=== PATIENT | male | born 1980 | race Caucasian/White ===

== ENCOUNTER 2023-03-28 11:24 | Outpatient (OUT) | payer OTHER, SELFPAY ==
[2023-03-28 12:23] LABS: Free T3 2.36 pg/mL (2.18-3.98); Thyroid Stimulating Hormone 1.152 uIU/mL (0.358-3.740)
[2023-03-28 13:02] LABS: Free T4 0.79 ng/dL (0.76-1.46)
== END 2023-03-28 11:25 | disposition home or self-care (01) ==
LOC: LAB 11:26
PROVIDERS: PCP Internal Medicine; Visit Provider Internal Medicine
DX: R94.6 Abnormal results of thyroid function studies (principal); G35 Multiple sclerosis; M54.9 Dorsalgia, unspecified
CPT/HCPCS: 36415; 82306; 84439; 84443; 84481

== ENCOUNTER 2023-06-20 12:22 | Outpatient (OUT) | payer OTHER, SELFPAY ==
[2023-06-20 12:47] LABS: Basophils Percent Auto 0.7 % (0.2-2.0); Eosinophils Absolute Auto 0.1 10^3/uL (0.0-0.7); Eosinophils Percent Auto 1.1 % (0.9-7.0); Hematocrit 45.7 % (42.0-54.0); Hemoglobin 14.4 g/dL (14.0-18.0); Immature Granulocytes Abs Auto 0.02 10^3/uL (0.00-0.03); Immature Granulocytes Pct Auto 0.4 % (0.0-0.5); Lymphocytes Absolute Auto 1.7 10^3/uL (1.2-3.8); Lymphocytes Percent Auto 31.2 % (20.5-60.0); Mean Corpuscular HGB Conc 31.5 g/dL (29.9-35.2); Mean Corpuscular Hemoglobin 29.4 pg (25.9-34.0); Mean Corpuscular Volume 93.5 fL (80.0-94.0); Mean Platelet Volume 8.9 fL (9.5-13.5); Monocytes Absolute Auto 0.3 10^3/uL (0.3-0.8); Monocytes Percent Auto 5.4 % (1.7-12.0); Neutrophils Absolute Auto 3.4 10^3/uL (1.4-6.5); Neutrophils Percent Auto 61.2 % (43.0-75.0); Platelet Count 177 10^3/uL (150-450); Red Blood Count 4.89 10^6/uL (4.70-6.10); Red Cell Distribution Width 13.1 % (11.0-15.0); White Blood Count 5.5 10^3/uL (4.0-11.0)
[2023-06-20 13:04] LABS: Bilirubin Urine NEGATIVE (NEGATIVE); Blood Urine NEGATIVE (NEGATIVE); Clarity Urine CLEAR (CLEAR); Color Urine LT. YELLOW (YELLOW); Glucose Urine UA NEGATIVE (NEGATIVE); Ketones Urine NEGATIVE (NEGATIVE); Leukocyte Esterase Urine NEGATIVE (NEGATIVE); Nitrite Urine NEGATIVE (NEGATIVE); Protein Urine NEGATIVE (NEG/TRACE); Urobilinogen Urine 0.2 EU/dL (0.2-1.0); pH Urine 6.5 (5.0-9.0)
[2023-06-20 13:18] LABS: Bacteria Urine TRACE #/HPF (NONE SEEN); Cast Seen? NONE SEEN #/LPF (NONE SEEN); Crystals Seen? None Seen #/HPF (None Seen); Mucus Urine NONE SEEN (NONE SEEN); RBC Urine 0-2 #/HPF (0-2); Squamous Epithelial Cell Urine NONE SEEN #/LPF (NONE/RARE); Urine Culture Indicated ALREADY ORDERED; WBC Urine NONE SEEN #/HPF (NONE SEEN)
[2023-06-20 13:30] LABS: Alanine Aminotransferase 35 U/L (16-63); Albumin Globulin Ratio 1.1; Albumin Level 3.4 g/dL (3.4-5.0); Alkaline Phosphatase 105 U/L (46-116); Anion Gap 11.2; Aspartate Amino Transferase 25 U/L (15-37); Bilirubin Total 0.3 mg/dL (0.2-1.0); Calcium 8.2 mg/dL (8.5-10.1); Carbon Dioxide 28.1 mmol/L (21.0-32.0); Chloride 106 mmol/L (98-107); Estimated GFR (African America >60 (>=60); Estimated GFR (Non-African Ame >60 (>=60); Glucose 147 mg/dL (74-106); Potassium 4.3 mmol/L (3.5-5.1); Sodium 141 mmol/L (136-145); Total Protein 6.4 g/dL (6.4-8.2)
== END 2023-06-20 12:23 | disposition home or self-care (01) ==
PROVIDERS: PCP Internal Medicine; Visit Provider Physician Assistant Medical
DX: G35 Multiple sclerosis (principal)
CPT/HCPCS: 36415; 80053; 81001; 85025; 87086

== ENCOUNTER 2023-06-24 07:44 | Outpatient (RCR) | payer OTHER, SELFPAY ==
[2023-06-23] MEDS: METHYLPREDNISOLONE SOD SUCC/PF 1,000 MG in 0.9 % SODIUM CHLORIDE 100 ML 108 MG IV (10:08)
[2023-06-23 10:10] VITALS: BP 153/81; PULSE 105; RESP 20; TEMP 37.3; O2SAT 95
--- NOTE | 2023-06-23 10:12 | PC.NURSE ---
0933: Pt. to [facility] amb. Seated in recliner. VSS. Allergies addressed. #22 gauge IV initiated to right ac on first attempt without difficulty. Flushes easily with good blood return. Pt. tolerated with no c/o pain. Offered snack or beverage, pt. declines. Denies needs. 1008: IV Solumedrol 1 gram infusing at this time. Pt. denies needs.
--- NOTE | 2023-06-23 10:33 | PC.NURSE ---
Pt. denies c/o or needs. IV site remains clear. Solumedrol infusing without difficulty.
--- NOTE | 2023-06-23 12:24 | PC.NURSE ---
1110: IV solumedrol infused. Pt. without c/o. IV d/c'd, pressure to site. D/c'd amb. to home.
[2023-06-24] MEDS: METHYLPREDNISOLONE SOD SUCC/PF 1,000 MG in 0.9 % SODIUM CHLORIDE 100 ML 108 MG IV (09:48)
--- NOTE | 2023-06-24 10:46 | PC.NURSE ---
1043: Infusion complete. IV left in and to [facility]. Site wrapped with coban. Pt. tolerated infusion without c/o. 1044: Pt. d/c'd amb to home.
[2023-06-25 10:08] VITALS: BP 106/80; RESP 16; TEMP 36.7; O2SAT 98
--- NOTE | 2023-06-25 10:45 | PC.NURSE ---
Patient came out into hallway stating that he is unable to wait anymore for his infusions. Apologies were delivered to patient and advised that medication was delivered and would be able to be hung at this time. Patient states that he does not have time to wait any longer. IV was removed, patient states that he will call and set something up later. Medication was given back to pharmacy.
== END 2023-07-21 23:59 | disposition home or self-care (01) ==
LOC: INF 07:44
PROVIDERS: Visit Provider Psychiatry & Neurology Neurology
DX: G35 Multiple sclerosis (principal)
CPT/HCPCS: 96365

== ENCOUNTER 2023-10-19 08:06 | Outpatient (OUT) | payer OTHER, SELFPAY ==
--- OUTSIDE RECORDS SUMMARY | 2023-10-19 08:09 | XMS_ITS | CCD ---
Author Name Unknown Address [address] [facility] [facility] [address] [place] [address] Organization [facility] Care Team Providers Care Corporate Safety Director Name Role Phone MD Tracey Schuster Primary Care Provider [phone] WALDO Lopez Attending Provider MD Js May Attending Provider WALDO Camarena Attending Provider [phone] Js May Unavailable OBEY LOPEZ Attending Unavailable OBEY LOPEZ Consulting Unavailable FAWWAD, WEBB H Primary Care Unavailable OBEY LOPEZ Admitting Unavailable BENEDICT, DR MAGANA Attending Unavailable BENEDICT, DR MAGANA Admitting Unavailable FAWWAD, WEBB H Primary Care Unavailable MARIA ALEJANDRA FRANCOIS Admitting Unavailable MARIA ALEJANDRA FRANCOIS Attending Unavailable MARIA ALEJANDRA FRANCOIS Consulting Unavailable FAWWAD, WEBB H Primary Care Unavailable SALVADOR CHRISTIE Consulting Unavailable FAWWAD, WEBB H Primary Care Unavailable SALVADOR CHRISTIE Admitting Unavailable SALVADOR CHRISTIE Attending Unavailable MAHI, DR IZZY Giron Consulting Unavailable PAY, DR KENYON Admitting Unavailable PAY, DR KENYON Attending Unavailable FAWWAD, WEBB H Primary Care Unavailable PAY, DR KENYON Consulting Unavailable FAWWAD, WEBB H Primary Care Unavailable SALVADOR CHRISTIE Consulting Unavailable SALVADOR CHRISTIE Admitting Unavailable SALVADOR CHRISTIE Attending Unavailable MISC, DR SAVAGE Consulting Unavailable REQUEST, DR FIELDS LISTED Primary Care Unavaila ble MISC, DR SAVAGE Admitting Unavailable MISC, DR SAVAGE Attending Unavailable BENEDICT, DR MAGANA Admitting Unavailable BENEDICT, DR MAGANA Attending Unavailable VANDA CAMARENA Consulting Unavailable FAWWAD, WEBB H Primary Care Unavailable FAWWAD, WEBB H Primary Care Unavailable FAWWAD, WEBB H Consulting Unavailable SHAIKH SCHUSTER H Admitting Unavailable SHAIKH Farida SCHUSTER Attending Unavailable NITHYA MUNOZ Consulting Unavailable NITHYA MUNOZ Admitting Unavailable NITHYA MUNOZ Attending Unavailable SHAIKH Farida SCHUSTER Primary Care Unavailable MD Tracey Schuster Primary Care Provider MD Js May Attending Provider [phone] MD Tracey Schuster Primary Care Provider [phone] WALDO Lopez Attending Provider [phone] Obey Lopez Attending Unavailable Obey Lopez Admitting Unavailable Shaikh Schuster Primary Care Unavailable Js May Attending Unavailable Js May Admitting Unavailable Shaikh Schuster Primary Care Unavailable Obey Lopez Admitting Unavailable Obey Lopez Attending Unavailable Shaikh Schuster Primary Care Unavailable Allergies Allergy Classification Reported Allergen(s) Allergy Type Date of Onset Reaction(s) Facility (3 sources) NSAIDs Propensity to adverse reactions 04-16-20 20 Contraindicated R/T 1 kidney [facility] (4 sources) Penicillins; Translations: [Penicillins] Propensity to adverse reactions 04-06-20 15 Vomiting [facility] (3 sources) penicillAMINE Drug Allergy Unknown [facility] [employer] Other (3 sources) Anti-Inflammator y Enzyme Drug allergy Unknown [facility] [employer] Other (1 source) Penicillin Drug Allergy N/V [facility] [employer] Other Medications Current Medications Medication Drug Class(es) Dates Sig (Normalized) Sig (Original) cyclobenzaprine hydrochloride 10 mg oral tablet (9 sources) Muscle Relaxant Start: 12-03-2020 take 10 mg by mouth three times daily Cyclobenzaprine Active 10 MG PO Three times daily 50 December 03, 2020 12:00am Start: 04-16-2020 End: 11-25-2020 take 10 mg by mouth three times daily Cyclobenzaprine Discontinued 10 MG PO Three times daily 50 April 16, 2020 12:00am November 25, 2020 4:49pm Start: 11-09-2017 End: 04-08-2020 take 10 mg by mouth three times daily Cyclobenzaprine Discontinued 10 MG PO Three times daily 50 November 09, 2017 12:00am April 08, 2020 10:56am DULoxetine 60 mg delayed release oral capsule (9 sources) Serotonin and Norepinephrine Reuptake Inhibitor Start: 10-04-2017 take 30 mg by mouth at bedtime Duloxetine Active 30 MG PO Bedtime October 04, 2017 1:00am Start: 10-04-2017 take 60 mg by mouth once daily in the morning Duloxetine Active 60 MG PO Every morning October 04, 2017 1:00am gabapentin 600 mg oral tablet (12 sources) Anti-epileptic Agent Start: 11-25-2020 take 700 mg by mouth three times daily Gabapentin Active 700 MG PO Three times daily November 25, 2020 4:48pm Start: 04-16-2020 End: 11-25-2020 take 600 mg by mouth three times daily Gabapentin Discontinued 600 MG PO Three times daily 0 April 16, 2020 12:18pm November 25, 2020 4:49pm Start: 10-04-2017 End: 04-16-2020 take 700 mg by mouth three times daily Gabapentin Discontinued 700 MG PO Three times daily October 04, 2017 1:00am April 16, 2020 12:18pm 24 hr metoprolol succinate 25 mg extended release oral tablet (6 sources) beta-Adrenergic Milka Start: 04-08-2020 take 25 mg by mouth once daily Metoprolol Succinate Active 25 MG PO Daily April 08, 2020 12:00am OXcarbazepine 300 mg oral tablet (6 sources) Anti-epileptic Agent Start: 04-08-2020 take 1 tablet by mouth twice daily Oxcarbazepine (Trileptal) 300 mg Tablet Active 300 MG PO Twice daily April 08, 2020 12:00am oxyCODONE hydrochloride 5 mg oral tablet (14 sources) Opioid Agonist Start: 02-19-2021 take 1 tablet by mouth every twenty-four hours oxyCODONE HCl 5 MG 1 tablet as needed Orally once a day for 7 days Feb, Active Start: 12-03-2020 take 5-10 mg by mout h every six hours Oxycodone Active 5 - 10 MG PO Q6H 60 8 December 03, 2020 Start: 04-16-2020 End: 11-25-2020 take 5-10 mg by mouth every six hours Oxycodone Discontinued 5 - 10 MG PO Q6H 60 8 April 16, 2020 November 25, 2020 4:48pm Start: 04-08-2020 End: 04-16-2020 take 5 mg by mouth three times daily Oxycodone Discontinued 5 MG PO Three times daily April 08, 2020 12:00am April 16, 2020 12:18pm Start: 11-09-2017 End: 04-08-2020 take 1 tablet by mouth every six hours Oxycodone (Roxicodone) 5 mg Tablet Discontinued 5 MG PO Q6H 60 November 09, 2017 April 08, 2020 10:57am Prednisone (12 sources) Start: 12-03-2020 Prednisone Act maciej 1 dose pk PO per package directions December 03, 2020 12:12pm take 4 tabs for 3 days then take 3 tabs for 3 days then take 2 tabs for 3 days then take 1 tab for 3 days Start: 12-03-2020 Prednisone Act maciej 1 dose pk PO per package directions December 03, 2020 12:00am take 4 tabs for 3 days then take 3 tabs for 3 days then take 2 tabs for 3 days then take 1 tab for 3 days Start: 04-16-2020 End: 11-25-2020 Prednisone Discontinued 1 do se pk PO per package directions April 16, 2020 12:19pm November 25, 2020 4:48pm take 4 tabs for 3 days then take 3 tabs for 3 days then take 2 tabs for 3 days then take 1 tab for 3 days Start: 04-16-2020 End: 11-25-2020 Prednisone Discontinued 1 do se pk PO per package directions April 16, 2020 12:00am November 25, 2020 4:48pm take 4 tabs for 3 days then take 3 tabs for 3 days then take 2 tabs for 3 days then take 1 tab for 3 days Start: 11-09-2017 End: 04-08-2020 Prednisone Discontinued 1 do se pk PO per package directions November 09, 2017 2:21pm April 08, 2020 10:57am take 4 tabs for 3 days then take 3 tabs for 3 days then take 2 tabs for 3 days then take 1 tab for 3 days Start: 11-09-2017 End: 04-08-2020 Prednisone Discontinued 1 do se pk PO per package directions November 09, 2017 12:00am April 08, 2020 10:57am take 4 tabs for 3 days then take 3 tabs for 3 days then take 2 tabs for 3 days then take 1 tab for 3 days Start: 10-04-2017 End: 11-02-2017 take 40 mg by mouth once daily in the morning Prednisone Discontinued 40 MG PO Every morning 10 5 October 04, 2017 1:00am November 02, 2017 11:06am administer with food or milk QUEtiapine 300 mg oral tablet (9 sources) Atypical Antipsychotic Start: 04-08-2020 take 300 mg by mouth once daily at bedtime Quetiapine Active 300 MG PO Daily at bedtime April 08, 2020 12:00am Start: 10-04-2017 End: 04-08-2020 take 100-200 mg by mouth at bedtime Quetiapine Discontinued 100 - 200 MG PO Bedtime October 04, 2017 1:00am April 08, 2020 10:57am teriflunomide 14 mg oral tablet (3 sources) Pyrimidine Synthesis Inhibitor Start: 04-08-2020 take 1 tablet by mouth once daily Teriflunomide (Aubagio) 14 mg tablet Active 14 MG PO Daily April 08, 2020 12:00am Completed/Discontinued Medications Medication Drug Class(es) Dates Sig (Normalized) Sig (Original) acetaminophen 325 mg / oxyCODONE hydrochloride 5 mg oral tablet (6 sources) Opioid Agonist Start: 10-04-2017 End: 11-09-2017 take 1 tablet by mouth every four to six hours Oxycodone-Acetamino phen (Percocet) 5-325 mg tablet Discontinued 1 TAB PO EVERY 4-6 HOURS November 02, 2017 11:44am November 09, 2017 2:20pm cholecalciferol 0.025 mg oral capsule (3 sources) Vitamin D Start: 10-04-2017 End: 04-08-2020 take 1 capsule by mouth once Cholecalciferol (Vitamin D3) (Vitamin D3) 1,000 unit Capsule Discontinued 1000 UNIT PO Once October 04, 2017 1:00am April 08, 2020 10:56am 1 ml glatiramer acetate 20 mg/ml prefilled syringe (3 sources) Start: 10-04-2017 End: 04-08-2020 inject 20 mg by subcutaneous injection once daily Glatiramer (Glatopa) 20 mg/mL syringe Discontinued 20 MG SUBCUT Daily October 04, 2017 1:00am April 08, 2020 10:57am sulfamethoxazole 800 mg / trimethoprim 160 mg oral tablet (6 sources) Dihydrofolate Reductase Inhibitor Antibacterial, Sulfonamide Antimicrobial Start: 04-16-2020 End: 11-25-2020 take 1 tablet by mouth every twelve hours Sulfamethoxazole-Tr imethoprim (Bactrim Ds) 800-160 mg Tablet Discontinued 1 TAB PO Q12H April 16, 2020 12:00am November 25, 2020 4:48pm Start: 11-09-2017 End: 04-08-2020 take 1 tablet by mouth every twelve hours Sulfamethoxazole-Trimethoprim (Bactrim D s) 800-160 mg Tablet Discontinued 1 TAB PO Q12H November 09, 2017 12:00am April 08, 2020 10:57am tiZANidine 4 mg oral tablet (6 sources) Central alpha-2 Adrenergic Agonist Start: 04-08-2020 End: 04-16-2020 take 4 mg by mouth twice daily Tizanidine Discontinued 4 MG PO Twice daily April 08, 2020 12:00am April 16, 2020 12:18pm take 1-0.5 tablets b y mouth once daily at bedtime tiZANidine HCl 4 MG TAKE 1 AND 1/2 TO 2 TABLETS BY MOUTH DAILY AT BEDTIME Oral for 30 Active Problems Active Problems Problem Classification Problem Date Documented Date Episodic/Chronic Acquired foot deformities (2 sources) Foot drop, left foot; Translations: [Left foot drop] Onset: 06-02-2021 Resolved: 06-02-2021 Episodic Anxiety disorders (5 sources) Other specified anxiety disorders; Translations: [Anxiety disorder, unspecified] Onset: 01-08-2022 Chronic Diseases of white blood cells (1 source) Elevated white blood cell count, unspecified; Translations: [ELEVATED WHITE BLOOD CELL COUNT UNS] Onset: 01-25-2022 Chronic Multiple sclerosis (14 sources) Multiple sclerosis; Translations: [Multiple sclerosis] Onset: 06-02-2021 Resolved: 12-01-2021 11-26-2020 Chronic Other nervous system disorders (4 sources) Chronic pain; Translations: [Other chronic pain] Chronic Spondylosis; intervertebral disc disorders; other back problems (12 sources) Prolapsed lumbar intervertebral disc; Translations: [Other intervertebral disc displacement, lumbar region] Onset: 06-02-2021 Resolved: 06-02-2021 11-28-2020 Chronic Spondylosis; intervertebral disc disorders; other back problems (16 sources) Sciatica; Translations: [Sciatica, unspecified side] Onset: 06-02-2021 Resolved: 12-01-2021 11-25-2020 Episodic Substance-related disorders (1 source) Nicotine dependence, cigarettes, uncomplicated; Translations: [NICOTINE DEPEND CIGARETTES UNCOMP] Onset: 01-26-2022 Chronic Past or Other Problems Problem Classification Problem Date Documented Da te Episodic/Chronic Fluid and electrolyte disorders (4 sources) Hypo-osmolality and hyponatremia; Translations: [HYPO-OSMOLALITY AND HYPONATREMIA] Onset: 01-19-2022 Episodic Intracranial injury (1 source) Personal history of traumatic brain injury; Translations: [PERSONAL HX TRAUMATIC BRAIN INJURY] Onset: 01-26-2022 Episodic Other aftercare (1 source) Other meterman (current) drug therapy; Translations: [OTH BUDGET DIRECTOR CURRENT DRUG THERAPY] Onset: 02-01-2022 Episodic Other connective tissue disease (1 source) Pain in left foot Onset: 12-01-2021 Resolved: 12-01-2021 Episodic Other connective tissue disease (1 source) Arthrodesis status Onset: 12-01-2021 Resolved: 12-01-2021 Episodic Other screening for suspected conditions (not mental disorders or infectious disease) (4 sources) Abnormal results of thyroid function studies; Translations: [ABNORMAL RESULTS THR FUNCTION STDY] Onset: 04-08-2022 Episodic Poisoning by other medications and drugs (4 sources) Poisoning by unspecified narcotics, accidental (unintentional), initial encounter; Translations: [POISON UNS NARCOTIC ACC INITIAL ENC] Onset: 01-24-2022 Episodic Residual codes; unclassified (4 sources) Transient alteration of awareness; Translations: [TRANSIENT ALTERATION OF AWARENESS] Onset: 01-22-2022 Episodic Screening and history of mental health and substance abuse codes (1 source) Personal history of nicotine dependence; Translations: [PERSONAL HISTORY OF NICOTINE DEPEND] Onset: 01-11-2022 Episodic Substance-related disorders (1 source) Cannabis use, unspecified, uncomplicated; Translations: [CANNABIS USE UNS UNCOMPLICATED] Onset: 06-07-2022 Episodic Results Test Name Value Interpretation Reference Range Facil ity MR cervical spine wo/w conon 06-20-2023 MR cervical spine wo/w con [facility] [place] [address] [place] [address] MRI Report Signed Patient: Alexis Negrete II MR#: [id number] : 1980 Acct:[id number] Age/Sex: 42 / M ADM Date: 06/20/23 Loc: MR Room: Type: [facility] Attending Dr: Obey Lopez PA-C Copies to: Obey Lopez PA-C Ordering Provider: Obey Lopez PA-C Date of Service: 06/20/23 MR/MR cervical spine wo/w con: G35 MR cervical spine wo/w con 06/20/2023 10:01 AM SIGNS AND SYMPTOMS: Multiple sclerosis, follow-up PROTOCOL: Multiplanar multisequence MR images of the cervical spine were obtained with and without IV contrast CONTRAST: 14 mL of intravenous ProHance COMPARISON: 10/09/2021 FINDINGS: The bones of the cervical spine are in anatomic alignment. There is preservation of vertebral body heights and intervertebral disc spaces. There is a nonunified fracture of the C7 spinous process with accompanying edema. This is of uncertain acuity but is new compared to the prior exam. There are T2 and STIR hyperintense to myelinating plaques in the brainstem and cervical cord without significant interval change or evidence of interval disease progression. No epidural or paraspinous fluid collection is appreciated. The visualized paraspinous soft tissues are within normal limits. The prevertebral soft tissues are within normal limits. At C2-C3: There is a normal disc, central canal, and neural foramen. At C3-C4: There is a normal disc, central canal, and neural foramen. At C4-C5: There is a normal disc, central canal, and neural foramen. At C5-C6: There is a left central disc extrusion with mild cranial migration, similar to the prior exam. This contributes to moderate spinal canal stenosis with moderate to severe left and mild right neural foraminal narrowing. At C6-C7: There is a normal disc, central canal, and neural foramen. At C7-T1: There is a normal disc, central canal, and neural foramen. MR/MR cervical spine wo/w con IMPRESSION: There is a nonunified fracture of the C7 spinous process with accompanying edema. This is of uncertain acuity but is new compared to the prior exam. There are T2 and STIR hyperintense to myelinating plaques in the brainstem and cervical cord without significant interval change or evidence of interval disease progression. No abnormal postcontrast enhancement. At C5-C6: There is a left central disc extrusion with mild cranial migration, similar to the prior exam. This contributes to moderate spinal canal stenosis with moderate to severe left and mild right neural foraminal narrowing. Impression dictated by: Heidi Richardson M.D.06/20/2023 1:44 PM Dictation Location: [place] [address] Transcribed By: [facility] 06/20/23 1344 Dictated By: Heidi Richardson II, MD 06/20/23 1338 Signed By: 06/20/23 1344 [facility] MR thoracic spine wo/w conon 06-20-2023 MR thoracic spine wo/w con [facility] [address] MRI Report Signed Patient: Alexis Negrete II MR#: [id number] : 1980 Acct:[id number] Age/Sex: 42 / M ADM Date: 06/20/23 Loc: Room: Type: [facility] Attending Dr: Obey Lopez PA-C Copies to: Obey Lopez PA-C Ordering Provider: Obey Lopez PA-C Date of Service: 06/20/23 MR/MR thoracic spine wo/w con: G35 MR thoracic spine wo/w con 06/20/2023 11:20 AM SIGNS AND SYMPTOMS: Multiple sclerosis, follow-up PROTOCOL: Multiplanar multisequence MR images of the thoracic spine were obtained with and without IV contrast CONTRAST: 14 mL of intravenous ProHance COMPARISON: None. FINDINGS: The bones of the thoracic spine are in anatomic alignment. There is preservation of vertebral body heights and intervertebral disc spaces. There is a benign-appearing hemangioma on the right at T3. The marrow signal is within normal limits. No epidural or paraspinous fluid collection is appreciated. The visualized paraspinous soft tissues are within normal limits. At T1-T2: There is a normal disc, central canal, and neural foramen. At T2-T3: There is a normal disc, central canal, and neural foramen. At T3-T4: There is a broad-based disc bulge with mild spinal canal narrowing. There is mild bilateral neural foraminal narrowing. At T4-T5: There is a broad-based disc bulge with mild spinal canal narrowing. Significant neural foraminal narrowing. At T5-T6: There is a central disc protrusion causing mild spinal canal narrowing without significant neural foraminal narrowing. At T6-T7: There is a normal disc, central canal, and neural foramen. At T7-T8: There is a right central disc protrusion contributing to mild right neural foraminal narrowing and mild spinal canal narrowing. At T8-T9: There is a normal disc, central canal, and neural foramen. At T9-T10: There is a normal disc, central canal, and neural foramen. At T10-T11: There is a normal disc, central canal, and neural foramen. At T11-T12: There is a normal disc, central canal, and neural foramen. At T12-L1: There is a normal disc, central canal, and neural foramen. MR/MR thoracic spine wo/w con IMPRESSION: No cord compression or cord signal abnormality. No abnormal postcontrast enhancement. Mild multilevel degenerative changes noted, as above. Impression dictated by: Heidi Richardson M.D.06/20/2023 1:37 PM Dictation Location: [place] [address] Transcribed By: [facility] 06/20/231336 Dictated By: Heidi Richardson II, MD 06/20/231330 Signed By: 06/20/231336 [facility] MR head/brain wo/w conon MR head/brain wo/w con [facility] [place] [address] MRI Report Signed Patient: Alexis Negrete II MR#: [id number] : 1980 Acct:[id number] Age/Sex: 42 / M ADM Date: 01/10/23 Loc: MR Room: [facility] Attending Dr: Obey Lopez PA-C Copies to: Obey Lopez PA-C Ordering Provider: Obey Lopez PA-C Date of Service: 01/10/23 MR/MR head/brain wo/w con: G35 MR head/brain wo/w con 01/10/2023 10:33 PM SIGN AND SYMPTOMS: Follow-up multiple sclerosis PROTOCOL: Multiplanar multisequence MR images of the brain were obtained with and without IV contrast CONTRAST: 14 mL of intravenous ProHance COMPARISON: 12/21/2021 FINDINGS: Extra axial spaces: There is mild diffuse volume loss which is unchanged. Hemorrhage: None. Ventricular system: Within normal limits. Basal cisterns: Within normal limits and not effaced. Cerebral parenchyma: Multiple foci of T2 and T2 FLAIR hyperintense signal are noted in the corpus callosum, periventricular white matter, and subcortical white matter similar to that seen on the prior exam consistent with a history of multiple sclerosis. There is no diffusion restriction or abnormal postcontrast enhancement to suggest active demyelination. Midline shift: None.. Cerebellum: Within normal limits. Brainstem: Within normal limits. OTHER: Calvarium: Normal marrow signal. Vascular system: Satisfactory flow voids within the anterior and posterior circulation. Visualized Paranasal sinuses: Their is polypoid mucosal thickening in the left maxillary sinus. Post thickening is also noted in the left frontal recess. Visualized Orbits: Within normal limits. Visualized upper cervical spine: Within normal limits. Sella and skull base: Within normal limits. MR/MR head/brain wo/w con IMPRESSION: No acute intracranial pathology. Findings consistent with demyelinating disease showing no significant interval change when compared to the prior exam. No diffusion restriction or abnormal postcontrast enhancement is noted to suggest active demyelination. Impression dictated by: Heidi Richardson M.D.01/11/2023 8:56 AM Dictation Location: [place] [address] Transcribed By: [facility] 01/11/23855 Dictated By: Heidi Richardson II, MD 01/11/2348 Signed By: 01/11/23855 Normal [facility] XR lumbar spine AP/LAT/FLX/E XTon 11-29-2022 XR lumbar spine AP/LAT/FLX/EXT [facility] [place] [address] XRay Report Signed Patient: AnlavonAlexis marinelli II MR#: [id number] : 1980 Acct:[id number] Age/Sex: 42 / M ADM Date: 11/29/22 Loc: XD Room: Type: [facility] Attending Dr: Js May MD Copies to: Js May MD Ordering Provider: Js May MD Date of Service: 11/29/22 XR/XR lumbar spine AP/LAT/FLX/EXT: M54.16 LUMBAR SPINE - 4 views CLINICAL HISTORY: 1 year follow-up lumbar surgery. COMPARISON: Lumbar spine 11/19/2021 FINDINGS: Posterior hardware fixation L4 through through S1 with what appears to been interval fracture involving a pedicle screw involving S1. No pathological motion on flexion or extension views. XR/XR lumbar spine AP/LAT/FLX/EXT IMPRESSION: INTERVAL FRACTURE OF THE PEDICLE SCREW INVOLVING S1. NO PATHOLOGICAL MOTION. Impression dictated by: Willian Bergeron Jr., D.OSiri11/29/2022 3:57 PM Dictation Location: [place] [address] Transcribed By: [facility] 11/29/22 155 Dictated By: Willian Bergeron Jr, DO 11/29/22 1555 Signed By: 11/29/22 1557 [facility] CBC AUTO DIFFon 09-16-2022 BASO # 0.0 103/ul Normal 0.0-0.1 [facility] Comment on above: Performed By: #### C BC #### [facility] [address] [place] [address] [address] Nehemiah Vargas Basophils/100 WBC (Bld) 0.5 % Normal 0.2-2.0 [facility] Comment on above: Performed By: #### C BC #### [facility] [address] [place] [address] [address] Nehemiah Vargas EO # 0.0 103/ul Normal 0.0-0.7 [facility] Comment on above: Performed By: #### C BC #### [facility] [address] [place] [address] [address] Nehemiah Vargas Eosinophils/100 WBC (Bld) 0.5 % Critically low 0.9-7.0 [facility] Comment on above: Performed By: #### C BC #### [facility] [address] [place] [address] Dr. Nehemiah Vargas Erythrocyte distribution width (RBC) [Ratio] 13.2 % Normal 11.0-15.0 [facility] Comment on above: Performed By: #### C BC #### [facility] [address] [place] [address] Dr. Nehemiah Vargas Hematocrit (Bld) [Volume fraction] 50.1 % Normal 42.0-54.0 [facility] Comment on above: Performed By: #### C BC #### [facility] [address] [place] [address] Dr. Nehemiah Vargas Hemoglobin (Bld) [Mass/Vol] 15.2 g/dL Normal 14.0-18.0 [facility] Comment on above: Performed By: #### C BC #### [facility] [address] [place] [address] Dr. Nehemiah Vargas IG # 0.02 10e3/ul Normal 0.00-0.03 [facility] Comment on above: Performed By: #### C BC #### [facility] [address] [place] [address] Dr. Nehemiah Vargas IG % 0.3 % Normal 0.0-0.5 [facility] Comment on above: Performed By: #### C BC #### [facility] [address] [place] [address] Dr. Nehemiah Vargas LYMPH # 1.8 103/ul Normal 1.2-3.8 [facility] Comment on above: Performed By: #### C BC #### [facility] [address] [place] [address] Dr. Nehemiah Vargas Lymphocytes/100 WBC (Bld) 22.9 % Normal 20.5-60.0 [facility] Comment on above: Performed By: #### C BC #### [facility] [address] [place] [address] Dr. Nehemiah Vargas MANUAL DIFF REQ NO Normal [facility] Comment on above: Performed By: #### C BC #### [facility] [address] [place] [address] Dr. Nehemiah Vargas MCH (RBC) [Entitic mass] 29.9 pg Normal 25.9-34.0 [facility] Comment on above: Performed By: #### C BC #### [facility] [address] [place] [address] Dr. Nehemiah Vargas MCHC (RBC) [Mass/Vol] 30.3 g/dL Normal 29.9-35.2 [facility] Comment on above: Performed By: #### C BC #### [facility] [address] [place] [address] Dr. Nehemiah Vargas MCV (RBC) [Entitic vol] 98.4 fL Critically high 80.0-94.0 [facility] Comment on above: Performed By: #### C BC #### [facility] [address] [place] [address] Dr. Nehemiah Vargas MONO # 0.5 103/ul Normal 0.3-0.8 [facility] Comment on above: Performed By: #### C BC #### [facility] [address] [place] [address] Dr. Nehemiah Vargas Monocytes/100 WBC (Bld) 6.7 % Normal 1.7-12.0 [facility] Comment on above: Performed By: #### C BC #### [facility] [address] [place] [address] Dr. Nehemiah Vargas NEUT # 5.5 103/ul Normal 1.4-6.5 [facility] Comment on above: Performed By: #### C BC #### [facility] [address] [place] [address] Dr. Nehemiah Vargas Neutrophils/100 WBC (Bld) 69.1 % Normal 43.0-75.0 [facility] Comment on above: Performed By: #### C BC #### [facility] [address] [place] [address] Dr. Nehemiah Vargas Platelet mean volume (Bld) [Entitic vol] 10.1 fL Normal 9.5-13.5 [facility] Comment on above: Performed By: #### C BC #### [facility] [address] [address] [address] Nehemiah Vargas PLT 159 103/ul Normal 150-450 [facility] Comment on above: Performed By: #### C BC #### [facility] [address] [address] [address] Nehemiah Vargas RBC 5.09 106/ul Normal 4.70-6.10 [facility] Comment on above: Performed By: #### C BC #### [facility] [address] [place] [address] Dr. Nehemiah Vargas WBC 7.9 103/ul Normal 4.0-11.0 [facility] Comment on above: Performed By: #### C BC #### [facility] [address] [place] [address] Dr. Nehemiah Varags PROF 14(COMP METB)on 023 Albumin [Mass/Vol] 3.9 g/dL Normal 3.4-5.0 [facility] Comment on above: Performed By: #### C MP #### [facility] [address] [place] [address] Dr. Nehemiah Vargas Albumin/Globulin [Mass ratio] 1.2 {ratio} Normal [facility] Comment on above: Performed By: #### C MP #### [facility] [address] [place] [address] Dr. Nehemiah Vargas ALP [Catalytic activity/Vol] 118 U/L Critically high 46-116 [facility] Comment on above: Performed By: #### C MP #### [facility] [address] [place] [address] Dr. Nehemiah Vargas ALT [Catalytic activity/Vol] 25 U/L Normal 16-63 [facility] Comment on above: Performed By: #### C MP #### [facility] [address] [place] [address] Dr. Nehemiah Vargas Anion gap [Moles/Vol] 11.7 mmol/L Normal [facility] Comment on above: Performed By: #### C MP #### [facility] [address] [place] [address] Dr. Nehemiah Vargas AST [Catalytic activity/Vol] 24 U/L Normal 15-37 [facility] Comment on above: Performed By: #### C MP #### [facility] [address] [address] [address] Nehemiah Vargas Bilirubin [Mass/Vol] 0.5 mg/dL Normal 0.2-1.0 [facility] Comment on above: Performed By: #### C MP #### [facility] [address] [address] [address] Nehemiah Vargas Calcium [Mass/Vol] 8.8 mg/dL Normal 8.5-10.1 [facility] Comment on above: Performed By: #### C MP #### [facility] [address] [place] [address] Dr. Nehemiah Vargas Chloride [Moles/Vol] 101 mmol/L Normal 98-107 [facility] Comment on above: Performed By: #### C MP #### [facility] [address] [address] [address] Nehemiah Vargas CO2 [Moles/Vol] 30.4 mmol/L Normal 21.0-32.0 [facility] Comment on above: Performed By: #### C MP #### [facility] [address] [place] [address] Dr. Nehemiah Vargas Creatinine [Mass/Vol] 0.86 mg/dL Normal 0.70-1.30 [facility] Comment on above: Performed By: #### C MP #### [facility] [address] [address] [address] Nehemiah Vargas EGFR-AF BURMESE >60 Normal >=60 [facility] Comment on above: Performed By: #### C MP #### [facility] [address] [address] [address] Nehemiah Vargas EGFR-NON AF BURMESE >60 Normal >=60 [facility] Comment on above: Performed By: #### C MP #### [facility] [address] [address] [address] Nehemiah Vargas Globulin (S) [Mass/Vol] 3.2 g/dL Normal [facility] Comment on above: Performed By: #### C MP #### [facility] [address] [address] [address] Nehemiah Vargas Glucose [Mass/Vol] 116 mg/dL Critically high 74-106 [facility] Comment on above: Performed By: #### C MP #### [facility] [address] [address] [address] Nehemiah Vargas Potassium [Moles/Vol] 4.1 mmol/L Normal 3.5-5.1 [facility] Comment on above: Performed By: #### C MP #### [facility] [address] [address] [address] Nehemiah Vargas Protein [Mass/Vol] 7.1 g/dL Normal 6.4-8.2 [facility] Comment on above: Performed By: #### C MP #### [facility] [address] [address] [address] Nehemiah Vargas Sodium [Moles/Vol] 139 mmol/L Normal 136-145 [facility] Comment on above: Performed By: #### C MP #### [facility] [address] [address] [address] Nehemiah Vargas Urea nitrogen [Mass/Vol] 10.0 mg/dL Normal 7.0-18.0 [facility] Comment on above: Performed By: #### C MP #### [facility] [address] [address] [address] Nehemiah Vargas Urea nitrogen/Creatinin e [Mass ratio] 11.6 mg/mg Normal [facility] Comment on above: Performed By: #### C MP #### [facility] [address] [address] [address] Nehemiah Vargas VIT D 25-OH LABCORPon 2021 Vitamin D, 25-Hydroxy 42.1 ng/mL Normal 30.0-100.0 [facility] Comment on above: Result Comment: Bria min D deficiency has been defined by the [place] of Medicine and an Endocrine Society practice guideline as a level of serum 25-OH vitamin D less than 20 ng/mL (1,2). The Endocrine Society went on to further define vitamin D insufficiency as a level between 21 and 29 ng/mL (2). 1. IOM ([place] of [employer]). 2010. Dietary reference intakes for calcium and D. [place]: The National Academies Press. 2. Deana MF, Eddie GRIFFITH, Migel AMADOR, et al. Evaluation, treatment, and prevention of vitamin D deficiency: an Endocrine Society clinical practice guideline. JCEM. 2010; 96(7):1911-30. Performed By: #### V ITADLC #### [facility] [address] [place] [address] Dr. Nehemiah Vargas FREE T3on 04-08-2022 FREE T3 1.59 pg/mlL Critically low 2.18-3.[address] [facility] Comment on above: Performed By: #### C BC #### [facility] [address] [place] [address] Dr. Nehemiah Vargas FREE T4on 04-08-2022 Free T4 [Mass/Vol] 0.78 ng/dL Normal 0.76-1.46 [facility] Comment on above: Performed By: #### C BC #### [facility] [address] [address] [address] Nehemiah Vargas TSHon 04-08-2022 TSH 0.219 uIU/mL Critically low 0.358-3.740 [facility] Comment on above: Performed By: #### C BC #### [facility] [address] [place] [address] Dr. Nehemiah Vargas PROLACTINon 01-23-2022 Prolactin 107.0 ng/mL Critically high 4.0-15.2 [facility] Comment on above: Performed By: #### C BC #### [facility] [address] [place] [address] Dr. Nehemiah Vargas CARDIAC HEIDI ADMITon 022 CK [Catalytic activity/Vol] 108 U/L Normal 39-308 [facility] Comment on above: Performed By: #### C BC #### [facility] [address] [place] [address] Dr. Nehemiah Vargas CK.MB [Mass/Vol] 3.01 ng/mL Normal <=3.60 [facility] Comment on above: Performed By: #### C BC #### [facility] [address] [place] [address] Dr. Nehemiah Vargas HSTROP 4.0 pg/mL Normal 4.0-76.1 [facility] Comment on above: Result Comment: CUT- OFF POINTS HAVE BEEN ESTABLISHED BASED ON THE FOURTH UNIVERSAL DEFINITIONS OF MYOCARDIAL INFARCTION. THE UPPER REFERENCE LIMIT (URL) OF TROPONIN, DEFINED THE 99TH PERCENTILE OF cTnI DISTRIBUTION IN A REFERENCE POPULATION, HAS BEEN CONFIRMED THE DECISION THRESHOLD FOR GA DIAGNOSIS. Performed By: #### C BC #### [facility] [address] [place] [address] Dr. Nehemiah Vargas RICARDO 33 ng/mL Normal 16-96 [facility] Comment on above: Performed By: #### C BC #### [facility] [address] [place] [address] Dr. Nehemiah Vargas CBC AUTO DIFFon 01-22-2022 BASO # 0.0 103/ul Normal 0.0-0.1 [facility] Comment on above: Performed By: #### C BC #### [facility] [address] [place] [address] Dr. Nehemiah Vargas Basophils/100 WBC (Bld) 0.5 % Normal 0.2-2.0 [facility] Comment on above: Performed By: #### C BC #### [facility] [address] [place] [address] Dr. Nehemiah Vargas EO # 0.0 103/ul Normal 0.0-0.7 [facility] Comment on above: Performed By: #### C BC #### [facility] [address] [place] [address] Dr. Nehemiah Vargas Eosinophils/100 WBC (Bld) 0.3 % Critically low 0.9-7.0 [facility] Comment on above: Performed By: #### C BC #### [facility] [address] [place] [address] Dr. Nehemiah Vargas Erythrocyte distribution width (RBC) [Ratio] 12.4 % Normal 11.0-15.0 [facility] Comment on above: Performed By: #### C BC #### [facility] [address] [place] [address] Dr. Nehemiah Vargas Hematocrit (Bld) [Volume fraction] 43.1 % Normal 42.0-54.0 [facility] Comment on above: Performed By: #### C BC #### [facility] [address] [place] [address] Dr. Nehemiah Vargas Hemoglobin (Bld) [Mass/Vol] 14.6 g/dL Normal 14.0-18.0 [facility] Comment on above: Performed By: #### C BC #### [facility] [address] [place] [address] Dr. Nehemiah Vargas IG # 0.02 10e3/ul Normal 0.00-0.03 [facility] Comment on above: Performed By: #### C BC #### [facility] [address] [place] [address] Dr. Nehemiah Vargas IG % 0.3 % Normal 0.0-0.5 [facility] Comment on above: Performed By: #### C BC #### [facility] [address] [place] [address] Dr. Nehemiah Vargas LYMPH # 0.9 103/ul Critically low 1.2-3.8 [facility] Comment on above: Performed By: #### C BC #### [facility] [address] [place] [address] Dr. Nehemiah Vargas Lymphocytes/100 WBC (Bld) 13.1 % Critically low 20.5-60.0 [facility] Comment on above: Performed By: #### C BC #### [facility] [address] [place] [address] Dr. Nehemiah Vargas MANUAL DIFF REQ NO Normal [facility] Comment on above: Performed By: #### C BC #### [facility] [address] [place] [address] Dr. Nehemiah Vargas MCH (RBC) [Entitic mass] 30.0 pg Normal 25.9-34.0 [facility] Comment on above: Performed By: #### C BC #### [facility] [address] [address] [address] Nehemiah Vargas MCHC (RBC) [Mass/Vol] 33.9 g/dL Normal 29.9-35.2 [facility] Comment on above: Performed By: #### C BC #### [facility] [address] [address] [address] Nehemiah Vargas MCV (RBC) [Entitic vol] 88.7 fL Normal 80.0-94.0 [facility] Comment on above: Performed By: #### C BC #### [facility] [address] [address] [address] Nehemiah Vargas MONO # 0.4 103/ul Normal 0.3-0.8 [facility] Comment on above: Performed By: #### C BC #### [facility] [address] [place] [address] Dr. Nehemiah Vargas Monocytes/100 WBC (Bld) 5.3 % Normal 1.7-12.0 [facility] Comment on above: Performed By: #### C BC #### [facility] [address] [address] [address] Nehemiah Vargas NEUT # 5.4 103/ul Normal 1.4-6.5 [facility] Comment on above: Performed By: #### C BC #### [facility] [address] [place] [address] Dr. Nehemiah Vargas Neutrophils/100 WBC (Bld) 80.5 % Critically high 43.0-75.0 [facility] Comment on above: Performed By: #### C BC #### [facility] [address] [address] [address] Nehemiah Vargas Platelet mean volume (Bld) [Entitic vol] 9.1 fL Critically low 9.5-13.5 [facility] Comment on above: Performed By: #### C BC #### [facility] [address] [address] [address] Nehemiah Vargas PLT 198 103/ul Normal 150-450 [facility] Comment on above: Performed By: #### C BC #### [facility] [address] [place] [address] Dr. Nehemiah Vargas RBC 4.86 106/ul Normal 4.70-6.10 [facility] Comment on above: Performed By: #### C BC #### [facility] [address] [place] [address] Dr. Nehemiah Vargas WBC 6.7 103/ul Normal 4.0-11.0 [facility] Comment on above: Performed By: #### C BC #### [facility] [address] [place], [place] [id number] Dr. Nehemiah Vargas CT HEAD WO CONon 01-22-2022 CT HEAD WO CON EXAMINATION: CT HEAD WO CON HISTORY: WEAKNESS COMPARISON: No relevant comparison available. TECHNIQUE: Axial CT images were obtained without IV contrast. Dose reduction techniques were achieved by using automated exposure control and/or adjustment of mA and/or kV according to patient size and/or use of iterative reconstruction technique. FINDINGS: BRAIN: Minimal atrophy. Areas of decreased attenuation within the subcortical and periventricular deep white matter favoring chronic small vessel ischemic changes. No hemorrhage, mass, or mass effect. CSF SPACES: No hydrocephalus, subarachnoid hemorrhage, or mass. Appropriate for age. SKULL: No fracture, mass, or other significant visible lesion. SINUSES: No significant mucosal thickening or fluid on the limited views. ORBITS: No appreciable abnormality on the limited views. OTHER: Negative IMPRESSION: 1. No intracranial hemorrhage or appreciable acute abnormality. 2. Age advanced chronic small vessel ischemic changes and slight parenchymal atrophy. Electronically authenticated by: IZZY CHAMPAGNE Date: 2022-01-22 12:00 Normal [facility] LACTATE/LACTIC ACIDon 2021 Lactate [Moles/Vol] 1.2 mmol/L Normal 0.4-1.9 [facility] Comment on above: Performed By: #### L ACT #### [facility] [address] [place] [address] Dr. Nehemiah Vargas LIPASEon 01-22-2022 Lipase [Catalytic activity/Vol] 95.0 U/L Normal 73.0-393.0 [facility] Comment on above: Performed By: #### C BC #### [facility] [address] [place] [address] Dr. Nehemiah Vargas PH VENOUS BLOODon 01-22-2022 PCO2 VENOUS 51.9 mmHg Normal 40.0-52.0 [facility] Comment on above: Performed By: #### C BC #### [facility] [address] [place] [address] Dr. Nehemiah Vargas pH VENOUS 7.301 Critically low 7.330-7.430 [facility] Comment on above: Performed By: #### C BC #### [facility] [address] [place] [address] Dr. Nehemiah Vargas PROF 14(COMP METB)on 022 Albumin [Mass/Vol] 3.7 g/dL Normal 3.4-5.0 [facility] Comment on above: Performed By: #### C BC #### [facility] [address] [place] [address] Dr. Nehemiah Vargas Albumin/Globulin [Mass ratio] 1.2 {ratio} Normal [facility] Comment on above: Performed By: #### C BC #### [facility] [address] [place] [address] Dr. Nehemiah Vargas ALP [Catalytic activity/Vol] 97 U/L Normal 46-116 [facility] Comment on above: Performed By: #### C BC #### [facility] [address] [place] [address] Dr. Nehemiah Vargas ALT [Catalytic activity/Vol] 26 U/L Normal 16-63 [facility] Comment on above: Performed By: #### C BC #### [facility] [address] [place] [address] Dr. Nehemiah Vargas Anion gap [Moles/Vol] 11.1 mmol/L Normal [facility] Comment on above: Performed By: #### C BC #### [facility] [address] [place] [address] Dr. Nehemiah Vargas AST [Catalytic activity/Vol] 20 U/L Normal 15-37 [facility] Comment on above: Performed By: #### C BC #### [facility] [address] [place] [address] Dr. Nehemiah Vargas Bilirubin [Mass/Vol] 0.4 mg/dL Normal 0.2-1.0 [facility] Comment on above: Performed By: #### C BC #### [facility] [address] [place] [address] Dr. Nehemiah Vargas Calcium [Mass/Vol] 8.4 mg/dL Critically low 8.5-10.1 [facility] Comment on above: Performed By: #### C BC #### [facility] [address] [place] [address] Dr. Nehemiah Vargas Chloride [Moles/Vol] 96 mmol/L Critically low 98-107 [facility] Comment on above: Performed By: #### C BC #### [facility] [address] [place] [address] Dr. Nehemiah Vargas CO2 [Moles/Vol] 28.1 mmol/L Normal 21.0-32.0 [facility] Comment on above: Performed By: #### C BC #### [facility] [address] [place] [address] Dr. Nehemiah Vargas Creatinine [Mass/Vol] 0.85 mg/dL Normal 0.70-1.30 [facility] Comment on above: Performed By: #### C BC #### [facility] [address] [place] [address] Dr. Nehemiah Vargas EGFR-AF BURMESE >60 Normal >=60 [facility] Comment on above: Performed By: #### C BC #### [facility] [address] [place] [address] Dr. Nehemiah Vargas EGFR-NON AF BURMESE >60 Normal >=60 [facility] Comment on above: Performed By: #### C BC #### [facility] [address] [place] [address] Dr. Nehemiah Vargas Globulin (S) [Mass/Vol] 3.1 g/dL Normal [facility] Comment on above: Performed By: #### C BC #### [facility] [address] [place] [address] Dr. Nehemiah Vargas Glucose [Mass/Vol] 138 mg/dL Critically high 74-106 [facility] Comment on above: Performed By: #### C BC #### [facility] [address] [address] [address] Nehemiah Vargas Potassium [Moles/Vol] 4.2 mmol/L Normal 3.5-5.1 [facility] Comment on above: Performed By: #### C BC #### [facility] [address] [address] [address] Nehemiah Vargas Protein [Mass/Vol] 6.8 g/dL Normal 6.4-8.2 [facility] Comment on above: Performed By: #### C BC #### [facility] [address] [place] [address] Dr. Nehemiah Vargas Sodium [Moles/Vol] 131 mmol/L Critically low 136-145 [facility] Comment on above: Performed By: #### C BC #### [facility] [address] [place] [address] Dr. Nehemiah Vargas Urea nitrogen [Mass/Vol] 7.0 mg/dL Normal 7.0-18.0 [facility] Comment on above: Performed By: #### C BC #### [facility] [address] [place] [address] Dr. Nehemiah Vargas Urea nitrogen/Creatinin e [Mass ratio] 8.2 mg/mg Normal [facility] Comment on above: Performed By: #### C BC #### [facility] [address] [place] [address] Dr. Nehemiah Vargas TSHon 01-22-2022 TSH 1.003 uIU/mL Normal 0.358-3.740 [facility] Comment on above: Performed By: #### C BC #### [facility] [address] [place] [address] Dr. Nehemiah Vargas TSH RANGE SEE BELOW Normal [facility] Comment on above: Result Comment: <0.3 4 UIU/ml HYPERTHYROID 0.34-5.60 UIU/ml EUTHYROID >5.60 UIU/ml HYPOTHYROID Performed By: #### C BC #### [facility] [address] [place] [address] Dr. Nehemiah Vargas XR CHEST 1 Von 01-22-2022 XR CHEST 1 V EXAMINATION: XR CHES T 1 V HISTORY: NAUSEA WITH VOMITING, UNSPECIFIED COMPARISON: XR chest 2019 FINDINGS: LUNGS: Hyperexpanded lungs. No significant pulmonary parenchymal abnormalities. VASCULATURE: No increased pulmonary vasculature. PLEURA: No pneumothorax, effusion, or pleural thickening. CARDIAC: No cardiomegaly or cardiac silhouette abnormality. MEDIASTINUM: No visible mass or adenopathy. BONES: No fracture or visible bone lesion. OTHER: Negative. IMPRESSION: 1. No acute cardiopulmonary process. Electronically authenticated by: IZZY CHAMPAGNE Date: 2022-01-22 12:01 Normal [facility] CBC AUTO DIFFon 01-19-2022 BASO # 0.0 103/ul Normal 0.0-0.1 [facility] Comment on above: Performed By: #### C BC #### [facility] [address] [place] [address] Dr. Nehemiah Vargas Basophils/100 WBC (Bld) 0.4 % Normal 0.2-2.0 [facility] Comment on above: Performed By: #### C BC #### [facility] [address] [place] [address] Dr. Nehemiah Vargas EO # 0.1 103/ul Normal 0.0-0.7 [facility] Comment on above: Performed By: #### C BC #### [facility] [address] [place] [address] Dr. Nehemiah Vargas Eosinophils/100 WBC (Bld) 1.3 % Normal 0.9-7.0 [facility] Comment on above: Performed By: #### C BC #### [facility] [address] [place] [address] Dr. Nehemiah Vargas Erythrocyte distribution width (RBC) [Ratio] 12.9 % Normal 11.0-15.0 [facility] Comment on above: Performed By: #### C BC #### [facility] [address] [place] [address] Dr. Nehemiah Vargas Hematocrit (Bld) [Volume fraction] 42.8 % Normal 42.0-54.0 [facility] Comment on above: Performed By: #### C BC #### [facility] [address] [address] [address] Nehemiah Vargas Hemoglobin (Bld) [Mass/Vol] 13.9 g/dL Critically low 14.0-18.0 [facility] Comment on above: Performed By: #### C BC #### [facility] [address] [address] [address] Nehemiah Vargas IG # 0.02 10e3/ul Normal 0.00-0.03 [facility] Comment on above: Performed By: #### C BC #### [facility] [address] [place] [address] Dr. Nehemiah Vargas IG % 0.3 % Normal 0.0-0.5 [facility] Comment on above: Performed By: #### C BC #### [facility] [address] [place] [address] Dr. Nehemiah Vargas LYMPH # 1.8 103/ul Normal 1.2-3.8 [facility] Comment on above: Performed By: #### C BC #### [facility] [address] [place] [address] Dr. Nehemiah Vargas Lymphocytes/100 WBC (Bld) 26.5 % Normal 20.5-60.0 [facility] Comment on above: Performed By: #### C BC #### [facility] [address] [place] [address] Dr. Nehemiah Vargas MANUAL DIFF REQ NO Normal [facility] Comment on above: Performed By: #### C BC #### [facility] [address] [place] [address] Dr. Nehemiah Vargas MCH (RBC) [Entitic mass] 29.6 pg Normal 25.9-34.0 [facility] Comment on above: Performed By: #### C BC #### [facility] [address] [place] [address] Dr. Nehemiah Vargas MCHC (RBC) [Mass/Vol] 32.5 g/dL Normal 29.9-35.2 [facility] Comment on above: Performed By: #### C BC #### [facility] [address] [address] [address] Nehemiah Vargas MCV (RBC) [Entitic vol] 91.1 fL Normal 80.0-94.0 [facility] Comment on above: Performed By: #### C BC #### [facility] [address] [address] [address] Nehemiah Vargas MONO # 0.5 103/ul Normal 0.3-0.8 [facility] Comment on above: Performed By: #### C BC #### [facility] [address] [address] [address] Nehemiah Vargas Monocytes/100 WBC (Bld) 6.9 % Normal 1.7-12.0 [facility] Comment on above: Performed By: #### C BC #### [facility] [address] [place] [address] Dr. Nehemiah Vargas NEUT # 4.4 103/ul Normal 1.4-6.5 [facility] Comment on above: Performed By: #### C BC #### [facility] [address] [place] [address] Dr. Nehemiah Vargas Neutrophils/100 WBC (Bld) 64.6 % Normal 43.0-75.0 [facility] Comment on above: Performed By: #### C BC #### [facility] [address] [place] [address] Dr. Nehemiah Vargas Platelet mean volume (Bld) [Entitic vol] 10.3 fL Normal 9.5-13.5 [facility] Comment on above: Performed By: #### C BC #### [facility] [address] [place] [address] Dr. Nehemiah Vargas PLT 193 103/ul Normal 150-450 [facility] Comment on above: Performed By: #### C BC #### [facility] [address] [place] [address] Dr. Nehemiah Vargas RBC 4.70 106/ul Normal 4.70-6.10 [facility] Comment on above: Performed By: #### C BC #### [facility] [address] [place] [address] Dr. Nehemiah Vargas WBC 6.8 103/ul Normal 4.0-11.0 [facility] Comment on above: Performed By: #### C BC #### [facility] [address] [place] [address] Dr. Nehemiah Vargas PROF CHEM 8 (BAS METB)on Anion gap [Moles/Vol] 8.7 mmol/L Normal [facility] Comment on above: Performed By: #### C BC #### [facility] [address] [place] [address] Dr. Nehemiah Vargas Calcium [Mass/Vol] 8.6 mg/dL Normal 8.5-10.1 [facility] Comment on above: Performed By: #### C BC #### [facility] [address] [place] [address] Dr. Nehemiah Vargas Chloride [Moles/Vol] 100 mmol/L Normal 98-107 [facility] Comment on above: Performed By: #### C BC #### [facility] [address] [place] [address] Dr. Nehemiah Vargas CO2 [Moles/Vol] 29.8 mmol/L Normal 21.0-32.0 [facility] Comment on above: Performed By: #### C BC #### [facility] [address] [place] [address] Dr. Nehemiah Vargas Creatinine [Mass/Vol] 0.88 mg/dL Normal 0.70-1.30 [facility] Comment on above: Performed By: #### C BC #### [facility] [address] [place] [address] Dr. Nehemiah Vargas EGFR-AF BURMESE >60 Normal >=60 [facility] Comment on above: Performed By: #### C BC #### [facility] [address] [place] [address] Dr. Nehemiah Vargas EGFR-NON AF BURMESE >60 Normal >=60 [facility] Comment on above: Performed By: #### C BC #### [facility] [address] [place] [address] Dr. Nehemiah Vargas Glucose [Mass/Vol] 107 mg/dL Critically high 74-106 [facility] Comment on above: Performed By: #### C BC #### [facility] [address] [address] [address] Nehemiah Vragas Potassium [Moles/Vol] 4.5 mmol/L Normal 3.5-5.1 [facility] Comment on above: Performed By: #### C BC #### [facility] [address] [address] [address] Nehemiah Vargas Sodium [Moles/Vol] 134 mmol/L Critically low 136-145 [facility] Comment on above: Performed By: #### C BC #### [facility] [address] [place] [address] Dr. Nehemiah Vargas Urea nitrogen [Mass/Vol] 9.0 mg/dL Normal 7.0-18.0 [facility] Comment on above: Performed By: #### C BC #### [facility] [address] [place] [address] Dr. Nehemiah Vargas Urea nitrogen/Creatinin e [Mass ratio] 10.2 mg/mg Normal [facility] Comment on above: Performed By: #### C BC #### [facility] [address] [place] [address] Dr. Nehemiah Vargas TSHon 01-19-2022 TSH 0.322 uIU/mL Critically low 0.358-3.740 [facility] Comment on above: Performed By: #### C BC #### [facility] [address] [place] [address] Dr. Nehemiah Vargas TSH RANGE SEE BELOW Normal [facility] Comment on above: Result Comment: <0.3 4 UIU/ml HYPERTHYROID 0.34-5.60 UIU/ml EUTHYROID >5.60 UIU/ml HYPOTHYROID Performed By: #### C BC #### [facility] [address] [place] [address] Dr. Nehemiah Vargas CARDIAC HEIDI ADMITon 022 CK [Catalytic activity/Vol] 124 U/L Normal 39-308 [facility] Comment on above: Performed By: #### C MADM, CMP, ETH #### [facility] [address] [address] [address] Nehemiah Vargas CK.MB [Mass/Vol] 3.55 ng/mL Normal <=3.60 [facility] Comment on above: Performed By: #### C MADM, CMP, ETH #### [facility] [address] [address] [address] Nehemiah Vargas HSTROP 5.7 pg/mL Normal 4.0-76.1 [facility] Comment on above: Result Comment: CUT- OFF POINTS HAVE BEEN ESTABLISHED BASED ON THE FOURTH UNIVERSAL DEFINITIONS OF MYOCARDIAL INFARCTION. THE UPPER REFERENCE LIMIT (URL) OF TROPONIN, DEFINED THE 99TH PERCENTILE OF cTnI DISTRIBUTION IN A REFERENCE POPULATION, HAS BEEN CONFIRMED THE DECISION THRESHOLD FOR GA DIAGNOSIS. Performed By: #### C MADM, CMP, ETH #### [facility] [address] [address] [address] Nehemiah Vargas RICARDO 62 ng/mL Normal 16-96 [facility] Comment on above: Performed By: #### C MADM, CMP, ETH #### [facility] [address] [address] [address] Nehemiah Vargas CBC AUTO DIFFon 01-18-2022 BASO # 0.0 103/ul Normal 0.0-0.1 [facility] Comment on above: Performed By: #### C BC #### [facility] [address] [address] [address] Nehemiah Vargas Basophils/100 WBC (Bld) 0.4 % Normal 0.2-2.0 [facility] Comment on above: Performed By: #### C BC #### [facility] [address] [address] [address] Nehemiah Vargas EO # 0.1 103/ul Normal 0.0-0.7 [facility] Comment on above: Performed By: #### C BC #### [facility] [address] [address] [address] Nehemiah Vargas Eosinophils/100 WBC (Bld) 0.8 % Critically low 0.9-7.0 [facility] Comment on above: Performed By: #### C BC #### [facility] [address] [place] [address] Dr. Nehemiah Vargas Erythrocyte distribution width (RBC) [Ratio] 12.5 % Normal 11.0-15.0 [facility] Comment on above: Performed By: #### C BC #### [facility] [address] [place] [address] Dr. Nehemiah Vargas Hematocrit (Bld) [Volume fraction] 43.9 % Normal 42.0-54.0 [facility] Comment on above: Performed By: #### C BC #### [facility] [address] [place] [address] Dr. Nehemiah Vargas Hemoglobin (Bld) [Mass/Vol] 14.3 g/dL Normal 14.0-18.0 [facility] Comment on above: Performed By: #### C BC #### [facility] [address] [place] [address] Dr. Nehemiah Vargas IG # 0.03 10e3/ul Normal 0.00-0.03 [facility] Comment on above: Performed By: #### C BC #### [facility] [address] [place] [address] Dr. Nehemiah Vargas IG % 0.3 % Normal 0.0-0.5 [facility] Comment on above: Performed By: #### C BC #### [facility] [address] [place] [address] Dr. Nehemiah Vargas LYMPH # 0.9 103/ul Critically low 1.2-3.8 [facility] Comment on above: Performed By: #### C BC #### [facility] [address] [place] [address] Dr. Nehemiah Vargas Lymphocytes/100 WBC (Bld) 9.4 % Critically low 20.5-60.0 [facility] Comment on above: Performed By: #### C BC #### [facility] [address] [place] [address] Dr. Nehemiah Vargas MANUAL DIFF REQ NO Normal [facility] Comment on above: Performed By: #### C BC #### [facility] [address] [address] [address] Nehemiah Vargas MCH (RBC) [Entitic mass] 29.9 pg Normal 25.9-34.0 [facility] Comment on above: Performed By: #### C BC #### [facility] [address] [address] [address] Nehemiah Vargas MCHC (RBC) [Mass/Vol] 32.6 g/dL Normal 29.9-35.2 [facility] Comment on above: Performed By: #### C BC #### [facility] [address] [place] [address] Dr. Nehemiah Vargas MCV (RBC) [Entitic vol] 91.6 fL Normal 80.0-94.0 [facility] Comment on above: Performed By: #### C BC #### [facility] [address] [place] [address] Dr. Nehemiah Vargas MONO # 0.5 103/ul Normal 0.3-0.8 [facility] Comment on above: Performed By: #### C BC #### [facility] [address] [place] [address] Dr. Nehemiah Vargas Monocytes/100 WBC (Bld) 5.5 % Normal 1.7-12.0 [facility] Comment on above: Performed By: #### C BC #### [facility] [address] [place] [address] Dr. Nehemiah Vargas NEUT # 7.6 103/ul Critically high 1.4-6.5 [facility] Comment on above: Performed By: #### C BC #### [facility] [address] [place] [address] Dr. Nehemiah Vargas Neutrophils/100 WBC (Bld) 83.6 % Critically high 43.0-75.0 [facility] Comment on above: Performed By: #### C BC #### [facility] [address] [place] [address] Dr. Nehemiah Vargas Platelet mean volume (Bld) [Entitic vol] 9.1 fL Critically low 9.5-13.5 [facility] Comment on above: Performed By: #### C BC #### [facility] [address] [address] [address] Nehemiah Vargas PLT 169 103/ul Normal 150-450 [facility] Comment on above: Performed By: #### C BC #### [facility] [address] [place] [address] Dr. Nehemiah Vargas RBC 4.79 106/ul Normal 4.70-6.10 [facility] Comment on above: Performed By: #### C BC #### [facility] [address] [place] [address] Dr. Nehemiah Vargas WBC 9.1 103/ul Normal 4.0-11.0 [facility] Comment on above: Performed By: #### C BC #### [facility] [address] [place] [address] Dr. Nehemiah Vargas DRUG SCREEN RAPID (URINE)on 01-18-2022 AMP Negative Normal NEGATIVE [facility] Comment on above: Performed By: #### C BC #### [facility] [address] [place] [address] Dr. Nehemiah Vargas BAR Negative Normal NEGATIVE [facility] Comment on above: Performed By: #### C BC #### [facility] [address] [place] [address] Dr. Nehemiah Vargas BUP Negative Normal NEGATIVE [facility] Comment on above: Performed By: #### C BC #### [facility] [address] [place] [address] Dr. Nehemiah Vargas BZO Positive Abnormal NEGATIVE [facility] Comment on above: Performed By: #### C BC #### [facility] [address] [place] [address] Dr. Nehemiah Vargas JILLIAN Negative Normal NEGATIVE [facility] Comment on above: Performed By: #### C BC #### [facility] [address] [place] [address] Dr. Nehemiah Vargas CUT-OFFS SEE BELOW Normal [facility] Comment on above: Result Comment: AMP (Amphetamine): 500ng/mL, BAR (Barbituates): 200 ng/mL, BZO (Benzodiazepines): 150 ng/mL, BUP (Buprenorphine): 10 ng/mL, JILLIAN (Cocaine): 150 ng/mL, mAMP (Methamphetamine): 500 ng/mL, MTD (Methadone): 200 ng/mL, OPI (Opiates): 100 ng/mL, OXY (Oxycodone): 100 ng/mL, PCP (Phencyclidine): 25 ng/mL, PPX (Propoxyphene): 300 ng/mL, THC (Cannabinoids): 50 ng/mL, TCA (Trycyclic Antidepressants): 300 ng/mL Performed By: #### C BC #### [facility] [address] [place] [address] Dr. Nehemiah Vargas DRUG CUT HEADER DRUG CLASS TEST SYSTEM CUT-OFF CONCENTRATIONS ARE FOLLOWS: Normal [facility] Comment on above: Performed By: #### C BC #### [facility] [address] [place] [address] Dr. Nehemiah Vargas mAMP Negative Normal NEGATIVE [facility] Comment on above: Performed By: #### C BC #### [facility] [address] [place] [address] Dr. Nehemiah Vargas MTD Negative Normal NEGATIVE [facility] Comment on above: Performed By: #### C BC #### [facility] [address] [place] [address] Dr. Nehemiah Vargas OPI Negative Normal NEGATIVE [facility] Comment on above: Performed By: #### C BC #### [facility] [address] [place] [address] Dr. Nehemiah Vargas OXY Negative Normal NEGATIVE [facility] Comment on above: Performed By: #### C BC #### [facility] [address] [place] [address] Dr. Nehemiah Vargas PCP Negative Normal NEGATIVE [facility] Comment on above: Performed By: #### C BC #### [facility] [address] [place] [address] Dr. Nehemiah Vargas PPX Negative Normal NEGATIVE [facility] Comment on above: Performed By: #### C BC #### [facility] [address] [place] [address] Dr. Nehemiah Vargas TCA Positive Abnormal NEGATIVE [facility] Comment on above: Performed By: #### C BC #### [facility] [address] [address] [address] Nehemiah Vargas THC Positive Abnormal NEGATIVE [facility] Comment on above: Performed By: #### C BC #### [facility] [address] [place] [address] Dr. Nehemiah Vargas ER URINE PROFILEon 2 Bilirubin Ql (U) Negative Normal NEGATIVE [facility] Comment on above: Performed By: #### C BC #### [facility] [address] [place] [address] Dr. Nehemiah Vargas Clarity (U) CLEAR Normal CLEAR [facility] Comment on above: Performed By: #### C BC #### [facility] [address] [place] [address] Dr. Nehemiah Vargas Color (U) YELLOW Normal YELLOW [facility] Comment on above: Performed By: #### C BC #### [facility] [address] [place] [address] Dr. Nehemiah SANTO A micrscopic examination will be performed if indicated. Normal [facility] Comment on above: Performed By: #### C BC #### [facility] [address] [place] [address] Dr. Nehemiah Vragas Glucose Ql (U) Negative Normal NEGATIVE [facility] Comment on above: Performed By: #### C BC #### [facility] [address] [place] [address] Dr. Nehemiah Vargas Hemoglobin Ql (U) Negative Normal NEGATIVE [facility] Comment on above: Performed By: #### C BC #### [facility] [address] [place] [address] Dr. Nehemiah Vargas Ketones Ql (U) Negative Normal NEGATIVE [facility] Comment on above: Performed By: #### C BC #### [facility] [address] [place] [address] Dr. Nehemiah Vargas LEUKOCYTES Negative Normal NEGATIVE [facility] Comment on above: Performed By: #### C BC #### [facility] [address] [place] [address] Dr. Nehemiah Vargas Nitrite Ql (U) Negative Normal NEGATIVE [facility] Comment on above: Performed By: #### C BC #### [facility] [address] [place] [address] Dr. Nehemiah Vargas pH (U) 6.0 [pH] Normal 5-9 [facility] Comment on above: Performed By: #### C BC #### [facility] [address] [place] [address] Dr. Nehemiah Vargas Protein (U) [Mass/Vol] 30 mg/dL Abnormal NEGATIVE/ TRACE [facility] Comment on above: Performed By: #### C BC #### [facility] [address] [place] [address] Dr. Nehemiah Vargas SPEC GRAVITY >=1.030 Abnormal 1.005-<=1.[address] [facility] Comment on above: Performed By: #### C BC #### [facility] [address] [place] [address] Dr. Nehemiah Vargas UR MICRO IND INDICATED Normal [facility] Comment on above: Performed By: #### C BC #### [facility] [address] [place] [address] Dr. Neheimah Vargas Urobilinogen Qn (U) 0.2 {Stevenson'U}/dL Normal 0.2 - 1.0 [facility] Comment on above: Performed By: #### C BC #### [facility] [address] [place] [address] Dr. Nehemiah Vargas ETHANOL (BLD ALC)on 01-19-20 ALC NOTE NOTE: 80 mg/dl is th e legal limit for a blood alcohol level Normal [facility] Comment on above: Performed By: #### C SADIE VALLEJO, ETH #### [facility] [address] [place] [address] Dr. Nehemiah Vargas Ethanol [Mass/Vol] mg/dL Normal [facility] Comment on above: Performed By: #### C SADIE VALLEJO, ETH #### [facility] [address] [place] [address] Dr. Nehemiah Vargas PROF 14(COMP METB)on 022 Albumin [Mass/Vol] 3.5 g/dL Normal 3.4-5.0 [facility] Comment on above: Performed By: #### C SADIE VALLEJO, ETH #### [facility] [address] [address] [address] Nehemiah Vargas Albumin/Globulin [Mass ratio] 1.2 {ratio} Normal [facility] Comment on above: Performed By: #### C GENEVIEVE, SADIE, ETH #### [facility] [address] [address] [address] Nehemiah Vargas ALP [Catalytic activity/Vol] 94 U/L Normal 46-116 [facility] Comment on above: Performed By: #### C SADIE VALLEJO, ETH #### [facility] [address] [address] [address] Nehemiah Vargas ALT [Catalytic activity/Vol] 25 U/L Normal 16-63 [facility] Comment on above: Performed By: #### C GENEVIEVE CMP, ETH #### [facility] [address] [address] [address] Nehemiah Vargas Anion gap [Moles/Vol] 10.3 mmol/L Normal [facility] Comment on above: Performed By: #### C GENEVIEVE CMP, ETH #### [facility] [address] [place] [address] Dr. Nehemiah Vargas AST [Catalytic activity/Vol] 18 U/L Normal 15-37 [facility] Comment on above: Performed By: #### C GENEVIEVE, CMP, ETH #### [facility] [address] [address] [address] Nehemiah Vargas Bilirubin [Mass/Vol] 0.3 mg/dL Normal 0.2-1.0 [facility] Comment on above: Performed By: #### C GENEVIEVE CMP, ETH #### [facility] [address] [address] [address] Nehemiah Vargas Calcium [Mass/Vol] 8.4 mg/dL Critically low 8.5-10.1 [facility] Comment on above: Performed By: #### C MADM, CMP, ETH #### [facility] [address] [address] [address] Nehemiah Vargas Chloride [Moles/Vol] 98 mmol/L Normal 98-107 [facility] Comment on above: Performed By: #### C MADM, CMP, ETH #### [facility] [address] [place] [address] Dr. Nehemiah Vargas CO2 [Moles/Vol] 29.1 mmol/L Normal 21.0-32.0 [facility] Comment on above: Performed By: #### C MADM, CMP, ETH #### [facility] [address] [place] [address] Dr. Nehemiah Vargas Creatinine [Mass/Vol] 0.78 mg/dL Normal 0.70-1.30 [facility] Comment on above: Performed By: #### C MADM, CMP, ETH #### [facility] [address] [place] [address] Dr. Nehemiah Vargas EGFR-AF BURMESE >60 Normal >=60 [facility] Comment on above: Performed By: #### C MADM, CMP, ETH #### [facility] [address] [place] [address] Dr. Nehemiah Vargas EGFR-NON AF BURMESE >60 Normal >=60 [facility] Comment on above: Performed By: #### C MADM, CMP, ETH #### [facility] [address] [place] [address] Dr. Nehemiah Vargas Globulin (S) [Mass/Vol] 3.0 g/dL Normal [facility] Comment on above: Performed By: #### C MADM, CMP, ETH #### [facility] [address] [place] [address] Dr. Nehemiah Vargas Glucose [Mass/Vol] 128 mg/dL Critically high 74-106 [facility] Comment on above: Performed By: #### C MADM, CMP, ETH #### [facility] [address] [place] [address] Dr. Nehemiah Vargas Potassium [Moles/Vol] 4.4 mmol/L Normal 3.5-5.1 [facility] Comment on above: Performed By: #### C MADPeter CMP, ETH #### [facility] [address] [place] [address] Dr. Nehemiah Vargas Protein [Mass/Vol] 6.5 g/dL Normal 6.4-8.2 [facility] Comment on above: Performed By: #### C GENEVIEVE CMP, ETH #### [facility] [address] [place] [address] Dr. Nehemiah Vargas Sodium [Moles/Vol] 133 mmol/L Critically low 136-145 [facility] Comment on above: Performed By: #### C GENEVIEVE CMP, ETH #### [facility] [address] [place] [address] Dr. Nehemiah Vargas Urea nitrogen [Mass/Vol] 7.0 mg/dL Normal 7.0-18.0 [facility] Comment on above: Performed By: #### C GENEVIEVE CMP, ETH #### [facility] [address] [place] [address] Dr. Nehemiah Vargas Urea nitrogen/Creatinin e [Mass ratio] 9.0 mg/mg Normal [facility] Comment on above: Performed By: #### C SADIE VALLEJO, ETH #### [facility] [address] [place] [address] Dr. Nehemiah Vargas URINE MICROSCOPIC ONLYon BACTERIA NONE SEEN Normal NONE SEEN [facility] Comment on above: Performed By: #### C BC #### [facility] [address] [place] [address] Dr. Nehemiah Vargas Bacteria identified Cx Nom (U) NOT INDICATED Normal [facility] Comment on above: Performed By: #### C BC #### [facility] [address] [place] [address] Dr. Nehemiah Vargas CAST NONE SEEN Normal NONE SEEN [facility] Comment on above: Performed By: #### C BC #### [facility] [address] [place] [address] Dr. Nehemiah Vargas Crystals LM Nom (Urine sed) NONE SEEN Normal NONE SEEN [facility] Comment on above: Performed By: #### C BC #### [facility] [address] [place] [address] Dr. Nehemiah Vargas Epithelial cells LM Ql (Urine sed) NONE SEEN Normal NONE SEEN /RARE [facility] Comment on above: Performed By: #### C BC #### [facility] [address] [place] [address] Dr. Nehemiah Vargas MUCOUS TRACE Abnormal NONE SEEN [facility] Comment on above: Performed By: #### C BC #### [facility] [address] [place] [address] Dr. Nehemiah Vargas RBC NONE SEEN Abnormal 0-2 [facility] Comment on above: Performed By: #### C BC #### [facility] [address] [place] [address] Dr. Nehemiah Vargas WBC 0-2 Abnormal NONE SEEN [facility] Comment on above: Performed By: #### C BC #### [facility] [address] [place] [address] Dr. Nehemiah Vargas CBC AUTO DIFFon 01-08-2022 BASO # 0.0 103/ul Normal 0.0-0.1 [facility] Comment on above: Performed By: #### C BC #### [facility] [address] [place] [address] Dr. Nehemiah Vargas Basophils/100 WBC (Bld) 0.3 % Normal 0.2-2.0 [facility] Comment on above: Performed By: #### C BC #### [facility] [address] [place] [address] Dr. Nehemiah Vargas EO # 0.1 103/ul Normal 0.0-0.7 [facility] Comment on above: Performed By: #### C BC #### [facility] [address] [place] [address] Dr. Nehemiah Vargas Eosinophils/100 WBC (Bld) 1.3 % Normal 0.9-7.0 [facility] Comment on above: Performed By: #### C BC #### [facility] [address] [place] [address] Dr. Nehemiah Vargas Erythrocyte distribution width (RBC) [Ratio] 12.6 % Normal 11.0-15.0 [facility] Comment on above: Performed By: #### C BC #### [facility] [address] [place] [address] Dr. Nehemiah Vargas Hematocrit (Bld) [Volume fraction] 44.9 % Normal 42.0-54.0 [facility] Comment on above: Performed By: #### C BC #### [facility] [address] [place] [address] Dr. Nehemiah Vargas Hemoglobin (Bld) [Mass/Vol] 14.8 g/dL Normal 14.0-18.0 [facility] Comment on above: Performed By: #### C BC #### [facility] [address] [place] [address] Dr. Nehemiah Vargas IG # 0.01 10e3/ul Normal 0.00-0.03 [facility] Comment on above: Performed By: #### C BC #### [facility] [address] [place] [address] Dr. Nehemiah Vargas IG % 0.1 % Normal 0.0-0.5 [facility] Comment on above: Performed By: #### C BC #### [facility] [address] [place] [address] Dr. Nehemiah Vargas LYMPH # 1.7 103/ul Normal 1.2-3.8 [facility] Comment on above: Performed By: #### C BC #### [facility] [address] [place] [address] Dr. Nehemiah Vargas Lymphocytes/100 WBC (Bld) 25.0 % Normal 20.5-60.0 [facility] Comment on above: Performed By: #### C BC #### [facility] [address] [place] [address] Dr. Nehemiah Vargas MANUAL DIFF REQ NO Normal [facility] Comment on above: Performed By: #### C BC #### [facility] [address] [place] [address] Dr. Nehemiah Vargas MCH (RBC) [Entitic mass] 30.1 pg Normal 25.9-34.0 [facility] Comment on above: Performed By: #### C BC #### [facility] [address] [address] [address] Nehemiah Vargas MCHC (RBC) [Mass/Vol] 33.0 g/dL Normal 29.9-35.2 [facility] Comment on above: Performed By: #### C BC #### [facility] [address] [address] [address] Nehemiah Vargas MCV (RBC) [Entitic vol] 91.4 fL Normal 80.0-94.0 [facility] Comment on above: Performed By: #### C BC #### [facility] [address] [place] [address] Dr. Nehemiah Vargas MONO # 0.5 103/ul Normal 0.3-0.8 [facility] Comment on above: Performed By: #### C BC #### [facility] [address] [place] [address] Dr. Nehemiah Vargas Monocytes/100 WBC (Bld) 7.5 % Normal 1.7-12.0 [facility] Comment on above: Performed By: #### C BC #### [facility] [address] [place] [address] Dr. Nehemiah Vargas NEUT # 4.6 103/ul Normal 1.4-6.5 [facility] Comment on above: Performed By: #### C BC #### [facility] [address] [place] [address] Dr. Nehemiah Vargas Neutrophils/100 WBC (Bld) 65.8 % Normal 43.0-75.0 [facility] Comment on above: Performed By: #### C BC #### [facility] [address] [place] [address] Dr. Nehemiah Vargas Platelet mean volume (Bld) [Entitic vol] 9.7 fL Normal 9.5-13.5 [facility] Comment on above: Performed By: #### C BC #### [facility] [address] [place] [address] Dr. Nehemiah Vargas PLT 169 103/ul Normal 150-450 [facility] Comment on above: Performed By: #### C BC #### [facility] [address] [place] [address] Dr. Nehemiah Vargas RBC 4.91 106/ul Normal 4.70-6.10 [facility] Comment on above: Performed By: #### C BC #### [facility] [address] [place] [address] Dr. Nehemiah Vargas WBC 6.9 103/ul Normal 4.0-11.0 [facility] Comment on above: Performed By: #### C BC #### [facility] [address] [place] [address] Dr. Nehemiah Vargas PROF CHEM 8 (BAS METB)on Anion gap [Moles/Vol] 14.5 mmol/L Normal [facility] Comment on above: Performed By: #### C BC #### [facility] [address] [place] [address] Dr. Nehemiah Vargas Calcium [Mass/Vol] 8.9 mg/dL Normal 8.5-10.1 [facility] Comment on above: Performed By: #### C BC #### [facility] [address] [place] [address] Dr. Nehemiah Vargas Chloride [Moles/Vol] 98 mmol/L Normal 98-107 [facility] Comment on above: Performed By: #### C BC #### [facility] [address] [place] [address] Dr. Nehemiah Vargas CO2 [Moles/Vol] 24.4 mmol/L Normal 21.0-32.0 [facility] Comment on above: Performed By: #### C BC #### [facility] [address] [place] [address] Dr. Nehemiah Vargas Creatinine [Mass/Vol] 0.88 mg/dL Normal 0.70-1.30 [facility] Comment on above: Performed By: #### C BC #### [facility] [address] [place] [address] Dr. Nehemiah Vargas EGFR-AF BURMESE >60 Normal >=60 [facility] Comment on above: Performed By: #### C BC #### [facility] [address] [place] [address] Dr. Nehemiah Vargas EGFR-NON AF BURMESE >60 Normal >=60 [facility] Comment on above: Performed By: #### C BC #### [facility] [address] [address] [address] Nehemiah Vargas Glucose [Mass/Vol] 152 mg/dL Critically high 74-106 [facility] Comment on above: Performed By: #### C BC #### [facility] [address] [place] [address] Dr. Nehemiah Vargas Potassium [Moles/Vol] 3.9 mmol/L Normal 3.5-5.1 [facility] Comment on above: Performed By: #### C BC #### [facility] [address] [place] [address] Dr. Nehemiah Vargas Sodium [Moles/Vol] 133 mmol/L Critically low 136-145 [facility] Comment on above: Performed By: #### C BC #### [facility] [address] [place] [address] Dr. Nehemiah Vargas Urea nitrogen [Mass/Vol] 7.0 mg/dL Normal 7.0-18.0 [facility] Comment on above: Performed By: #### C BC #### [facility] [address] [place] [address] Dr. Nehemiah Vargas Urea nitrogen/Creatinin e [Mass ratio] 8.0 mg/mg Normal [facility] Comment on above: Performed By: #### C BC #### [facility] [address] [place] [address] Dr. Nehemiah Vargas CBC AUTO DIFFon 12-15-2021 BASO # 0.1 103/ul Normal 0.0-0.1 [facility] Comment on above: Performed By: #### C BC #### [facility] [address] [place] [address] Dr. Nehemiah Vargas Basophils/100 WBC (Bld) 0.5 % Normal 0.2-2.0 [facility] Comment on above: Performed By: #### C BC #### [facility] [address] [place] [address] Dr. Nehemiah Vargas EO # 0.2 103/ul Normal 0.0-0.7 [facility] Comment on above: Performed By: #### C BC #### [facility] [address] [place] [address] Dr. Nehemiah Vargas Eosinophils/100 WBC (Bld) 1.5 % Normal 0.9-7.0 [facility] Comment on above: Performed By: #### C BC #### [facility] [address] [place] [address] Dr. Nehemiah Vargas Erythrocyte distribution width (RBC) [Ratio] 12.9 % Normal 11.0-15.0 [facility] Comment on above: Performed By: #### C BC #### [facility] [address] [place] [address] Dr. Nehemiah Vargas Hematocrit (Bld) [Volume fraction] 47.2 % Normal 42.0-54.0 [facility] Comment on above: Performed By: #### C BC #### [facility] [address] [place] [address] Dr. Nehemiah Vargas Hemoglobin (Bld) [Mass/Vol] 15.6 g/dL Normal 14.0-18.0 [facility] Comment on above: Performed By: #### C BC #### [facility] [address] [place] [address] Dr. Nehemiah Vargas IG # 0.02 10e3/ul Normal 0.00-0.03 [facility] Comment on above: Performed By: #### C BC #### [facility] [address] [place] [address] Dr. Nehemiah Vargas IG % 0.2 % Normal 0.0-0.5 [facility] Comment on above: Performed By: #### C BC #### [facility] [address] [place] [address] Dr. Nehemiah Vargas LYMPH # 1.5 103/ul Normal 1.2-3.8 [facility] Comment on above: Performed By: #### C BC #### [facility] [address] [place] [address] Dr. Nehemiah Vargas Lymphocytes/100 WBC (Bld) 13.4 % Critically low 20.5-60.0 [facility] Comment on above: Performed By: #### C BC #### [facility] [address] [place] [address] Dr. Nehemiah Vargas MANUAL DIFF REQ NO Normal [facility] Comment on above: Performed By: #### C BC #### [facility] [address] [place] [address] Dr. Nehemiah Vargas MCH (RBC) [Entitic mass] 30.2 pg Normal 25.9-34.0 [facility] Comment on above: Performed By: #### C BC #### [facility] [address] [place] [address] Dr. Nehemiah Vargas MCHC (RBC) [Mass/Vol] 33.1 g/dL Normal 29.9-35.2 [facility] Comment on above: Performed By: #### C BC #### [facility] [address] [place] [address] Dr. Nehemiah Vargas MCV (RBC) [Entitic vol] 91.3 fL Normal 80.0-94.0 [facility] Comment on above: Performed By: #### C BC #### [facility] [address] [place] [address] Dr. Nehemiah Vargas MONO # 0.8 103/ul Normal 0.3-0.8 [facility] Comment on above: Performed By: #### C BC #### [facility] [address] [place] [address] Dr. Nehemiah Vargas Monocytes/100 WBC (Bld) 7.2 % Normal 1.7-12.0 [facility] Comment on above: Performed By: #### C BC #### [facility] [address] [place] [address] Dr. Nehemiah Vargas NEUT # 8.4 103/ul Critically high 1.4-6.5 [facility] Comment on above: Performed By: #### C BC #### [facility] [address] [place] [address] Dr. Nehemiah Vargas Neutrophils/100 WBC (Bld) 77.2 % Critically high 43.0-75.0 [facility] Comment on above: Performed By: #### C BC #### [facility] [address] [place] [address] Dr. Nehemiah Vargas Platelet mean volume (Bld) [Entitic vol] 9.3 fL Critically low 9.5-13.5 [facility] Comment on above: Performed By: #### C BC #### [facility] [address] [place] [address] Dr. Nehemiah Vargas PLT 171 103/ul Normal 150-450 [facility] Comment on above: Performed By: #### C BC #### [facility] [address] [place] [address] Dr. Nehemiah Vargas RBC 5.17 106/ul Normal 4.70-6.10 [facility] Comment on above: Performed By: #### C BC #### [facility] [address] [place] [address] Dr. Nehemiah Vargas WBC 10.9 103/ul Normal 4.0-11.0 [facility] Comment on above: Performed By: #### C BC #### [facility] [address] [place] [address] Dr. Nehemiah Vargas PROF 14(COMP METB)on 022 Albumin [Mass/Vol] 3.6 g/dL Normal 3.4-5.0 [facility] Comment on above: Performed By: #### C BC #### [facility] [address] [place] [address] Dr. Nehemiah Vargas Albumin/Globulin [Mass ratio] 1.2 {ratio} Normal [facility] Comment on above: Performed By: #### C BC #### [facility] [address] [place] [address] Dr. Nehemiah Vargas ALP [Catalytic activity/Vol] 105 U/L Normal 46-116 [facility] Comment on above: Performed By: #### C BC #### [facility] [address] [place] [address] Dr. Nehemiah Vargas ALT [Catalytic activity/Vol] 21 U/L Normal 16-63 [facility] Comment on above: Performed By: #### C BC #### [facility] [address] [place] [address] Dr. Nehemiah Vargas Anion gap [Moles/Vol] 11.4 mmol/L Normal [facility] Comment on above: Performed By: #### C BC #### [facility] [address] [place] [address] Dr. Nehemiah Vargas AST [Catalytic activity/Vol] 18 U/L Normal 15-37 [facility] Comment on above: Performed By: #### C BC #### [facility] [address] [place] [address] Dr. Nehemiah Vargas Bilirubin [Mass/Vol] 0.4 mg/dL Normal 0.2-1.0 [facility] Comment on above: Performed By: #### C BC #### [facility] [address] [place] [address] Dr. Nehemiah Vargas Calcium [Mass/Vol] 8.2 mg/dL Critically low 8.5-10.1 [facility] Comment on above: Performed By: #### C BC #### [facility] [address] [place] [address] Dr. Nehemiah Vargas Chloride [Moles/Vol] 96 mmol/L Critically low 98-107 [facility] Comment on above: Performed By: #### C BC #### [facility] [address] [place] [address] Dr. Nehemiah Vargas CO2 [Moles/Vol] 28.5 mmol/L Normal 21.0-32.0 [facility] Comment on above: Performed By: #### C BC #### [facility] [address] [place] [address] Dr. Nehemiah Vargas Creatinine [Mass/Vol] 0.88 mg/dL Normal 0.70-1.30 [facility] Comment on above: Performed By: #### C BC #### [facility] [address] [place] [address] Dr. Nehemiah Vargas EGFR-AF BURMESE >60 Normal >=60 [facility] Comment on above: Performed By: #### C BC #### [facility] [address] [address] [address] Nehemiah Vargas EGFR-NON AF BURMESE >60 Normal >=60 [facility] Comment on above: Performed By: #### C BC #### [facility] [address] [place] [address] Dr[address] Nehemiah Vargas Globulin (S) [Mass/Vol] 3.1 g/dL Normal [facility] Comment on above: Performed By: #### C BC #### [facility] [address] [place] [address] [address] Nehemiah Vargas Glucose [Mass/Vol] 121 mg/dL Critically high 74-106 T [facility] Comment on above: Performed By: #### C BC #### [facility] [address] [place] [address] [address] Nehemiha Vargas Potassium [Moles/Vol] 3.9 mmol/L Normal 3.5-5.1 [facility] Comment on above: Performed By: #### C BC #### [facility] [address] [place] [address] [address] Nehemiah Vargas Protein [Mass/Vol] 6.7 g/dL Normal 6.1-8.2 [facility] Comment on above: Performed By: #### C BC #### [facility] [address] [place] [address] Dr. Nehemiah Vargas Sodium [Moles/Vol] 132 mmol/L Critically low 136-145 Th [facility] Comment on above: Performed By: #### C BC #### [facility] [address] [place] [address] [address] Nehemiah Vargas Urea nitrogen [Mass/Vol] 8.0 mg/dL Normal 7.0-18.0 [facility] Comment on above: Performed By: #### C BC #### [facility] [address] [place] [address] [address] Nehemiah Vargas Urea nitrogen/Creatinin e [Mass ratio] 9.1 mg/mg Normal [facility] Comment on above: Performed By: #### C BC #### [facility] [address] [place] [address] [address] Nehemiah Vargas Vital Signs Date Time Vital Sign Value Performing Clinician Facility 06-20-2023 10:10-0400 Body height 190.5 cm MD Shaikh Schuster Work Phone: [facility] 06-20-2023 10:10-0400 Body weight 68.03 kg MD Shaikh Schuster Work Phone: [facility] 12-01-2021 11:20-0400 Body height 185.42 cm Js May Other [facility] Other 12-01-2021 11:20-0400 Body mass index (BMI) [Ratio] 21.77 kg/m2 Js May Other [facility] Other 12-01-2021 11:20-0400 Body weight 74.84 kg Js May Other [facility] Other 10-09-2021 08:25-0500 Body height 190.5 cm MD Shaikh Schuster Work Phone: [facility] 10-09-2021 08:25-0500 Body weight 72.57 kg MD Shaikh Schuster Work Phone: [facility] 06-02-2021 12:20-0400 Body height 185.42 cm Js May Other [facility] Other 06-02-2021 12:20-0400 Body mass index (BMI) [Ratio] 21.77 kg/m2 Js May Other [facility] Other 06-02-2021 12:20-0400 Body weight 74.84 kg Js May Other [facility] Other 06-02-2021 12:20-0400 Diastolic blood pressure 82 mm[Hg] Js May Other [facility] Other 06-02-2021 12:20-0400 Systolic blood pressure 138 mm[Hg] Js May Other [facility] [employer] Other Encounters Encounter Date Encounter Type Care Provider Facility Start: 06-20-2023 End: 06-20-2023 ambulatory Obey Lowe Facility:[facility] Start: 06-20-2023 End: 06-20-2023 ambulatory MD Shaikh Schuster Work Phone: [facility] Work Phone: Start: 06-20-2023 End: 06-20-2023 Patient encounter procedure MD Shaikh Schuster Work Phone: [facility] [place] Work Phone: Start: 01-10-2023 End: 01-10-2023 ambulatory Obey Lopez Facility:[facility] Start: 11-29-2022 End: 11-29-2022 ambulatory Js Antoinette May Facility:[facility] Start: 11-29-2022 End: 11-29-2022 ambulatory MD Shaikh Schuster Work Phone: [facility] Work Phone: Start: 11-29-2022 End: 11-29-2022 Patient encounter procedure MD Shaikh Schuster Work Phone: [facility]-XRay [facility] [place] Work Phone: Start: 09-16-2022 End: 09-17-2022 ambulatory OBEY LOWE Facility:[facility] Start: 04-08-2022 End: 04-09-2022 ambulatory NITHYA MUNOZ Facility:[facility] Start: 02-04-2022 End: 02-06-[address] DOCTOR LYNN Facility:[facility] Start: 01-24-2022 End: 01-24-2022 ambulatory SHAIKH Farida SCHUSTER Facility:[facility] Start: 01-22-2022 End: 01-22-[address] IZZY CHAMPAGNE Facility:[facility] Start: 01-19-2022 End: 01-20-2022 ambulatory SHAIKH Farida SCHUSTER Facility:[facility] Start: 01-18-2022 End: 01-18-2022 ambulatory SALVADOR CHRISTIE Facility:[facility] Start: 01-08-2022 End: 01-08-2022 ambulatory MARIA ALEJANDRA FRANCOIS Facility:[facility] Start: 12-21-2021 End: 12-21-2021 Patient encounter procedure MD Shaikh Schuster Work Phone: [facility] [address] Start: 12-15-2021 End: 12-16-[address] IZZY VERGARA Facility:[facility] Start: 12-01-2021 End: 12-01-2021 ambulatory Js May Other [facility] [employer] Other Start: 12-01-2021 Office outpatient visit 25 minutes Js aMy [facility] Start: 11-19-2021 End: 11-19-2021 Patient encounter procedure MD Shaikh Schuster Work Phone: [facility]XRay [facility] Start: 10-15-2021 End: 10-16-[address] IZZY VERGARA Facility:[facility] Start: 10-09-2021 End: 10-09-2021 Patient encounter procedure MD Shaikh Schuster Work Phone: [facility]MRI [facility] Start: 06-02-2021 Office outpatient visit 15 minutes Js May [facility] Start: 06-02-2021 Telephone encounter Js May [facility] Procedures Date Procedure Procedure Detail Performing Clinician Start: 06-20-2023 MRI of cervical spin e with contrast MD Shaikh Schuster Work Phone: Start: 06-20-2023 MRI of thoracic spin e with contrast MD Shaikh Schuster Work Phone: Start: 11-29-2022 X-ray of lumbar spin e, four views MD Shaikh Schuster Work Phone: Start: 12-21-2021 MRI of head MD Dubonikh Landen Work Phone: Start: 11-19-2021 X-ray of lumbar spin e, four views MD Shaikh Schuster Work Phone: Start: 10-09-2021 XR pre/post mri xray MD Shaikh Schuster Work Phone: Start: 10-09-2021 MRI of thoracic spin e with contrast MD Shaikh Schuster Work Phone: Start: 10-09-2021 MRI of cervical spin e with contrast MD Shaikh Schuster Work Phone: Payers Date Payer Category Payer Unknown [id number] 2.16.84 [id number] 1980 Unknown [id number] 2.16.84 [id number] 1979 Unknown [id number] 2.16.84 [id number] 1979 Unknown [id number] 2.16.84 [id number] 1979 Unknown [id number] 2.16.84 [id number] 1979 Unknown [id number] 2.16.84 [id number] 1979 Unknown [id number] 2.16.84 [id number] 1979 Unknown [id number] 2.16.84 [id number] 1979 Unknown [id number] 2.16.84 [id number] 1979 Unknown [id number] 2.16.84 [id number] 1959 Unknown [id number] Medicaid [employer] [id number] Self-pay Self Pay [id number] Social History Date Type Detail Facility Start: 12-01-2020 Tobacco smoking status NHIS Ex-smoker (finding) [facility] Start: 1980 Sex Assigned At Male F [facility] Sex Assigned At Sex Assigned At [facility] [employer] Other Medical Equipment Procedure Code Equipment Code Equipment Origin al Text Equipment Identifier Dates Discectomy, lumbar ADHERUS DURAL SEALANT FDA Start: 11-09-2017 Discectomy, lumbar ADHERUS DURAL SEALANT FDA Start: 11-09-2017 Discectomy, lumbar ADHERUS DURAL SEALANT FDA Start: 11-09-2017 Spinal fusion graft kit [id number] FDA Start: 12-01-2020 Bone-screw internal spinal fixation system, non-sterile [id number] FDA Start: 12-01-2020 Bone-screw internal spinal fixation system, non-sterile [id number] FDA Start: 12-01-2020 Polymeric spinal fusion cage, non-sterile [id number] FDA Start: 12-01-2020 Bone-screw internal spinal fixation system, non-sterile [id number] FDA Start: 12-01-2020 Evaluation note 12-01-2021 Note Date & Type Note Facility 12-01-2021 Evaluation note Encounter Date Diagnosis Assessment Notes Nov, Multiple sclerosis (ICD-10 - G35) Nov, Left foot pain (ICD-10 - M79.672) This patient continues to have a left foot drop but there is no pain. His back feels much better than previous his leg pain is now gone he still has difficulty walking which is multifactorial. He does have underlying diagnosis of multiple sclerosis. He is happy with his lumbar surgery result he understands the issues with his neck and will let me know if they get worse. Nov, History of lumbar fusion (ICD-10 - Z98.1) Nov, Cervical disc disorder at C5-C6 level with radiculopathy (ICD-10 - M50.122) He is having evidence of left arm numbness and discomfort that is transitory and not long-lasting I independently reviewed the MRI of the cervical spine and report as well as the thoracic spine and report. There is a left-sided C5-6 disc herniation. Given the overall minimal symptoms the patient is having I would not recommend surgical intervention especially with the active MS that this patient has. [facility] Other Evaluation note 06-02-2021 Note Date & Type Note Facility 06-02-2021 Evaluation note Encounter Date Diagnosis Assessment Notes May, Lumbar radiculopathy (ICD-10 - M54.16) As long as I have known Alexis I do not believe I have seen him look better. He has minimal back pain, no true radicular pain, and only occasional aches and discomfort. I am glad to see him looking so well. He will get an x-ray today and follow-up with me in 6 months. His foot drop has not improved which is not a surprise. May, Left foot drop (ICD-10 - M21.372) May, Lumbar degenerative disc disease (ICD-10 - M51.36) May, Multiple sclerosis (ICD-10 - G35) [facility] Other Evaluation note Note Date & Type Note Facility Evaluation note No assessment information [facility] Work Phone: Evaluation note Note Date & Type Note Facility Evaluation note No Information [employer] Other History general Narrative - Reported Note Date & Type Note Facility History general Narrative - Reported Type Medical History multiple sclerosis Medical History Patient was born with one kidney Medical History degenerative disc disease Medical History anxiety Medical History depression Surgical History lumbar laminectomy Surgical History Chest tube Surgical History nephrectomy Hospitalization History See Above [facility] Other History general Narrative - Reported Note Date & Type Note Facility History general Narrative - Reported Type Medical History multiple sclerosis Medical History Patient was born with one kidney Medical History degenerative disc disease Medical History anxiety Medical History depression Medical History renal agenesis Medical History MS Surgical History lumbar diskectomy- dr. may Surgical History lumbar laminectomy Surgical History Chest tube Surgical History Right side lumbar di sectomy Dr. May 2014 Surgical History Diskectomy- Dr. May 8 Surgical History nephrectomy Surgical History Left side lumbar dis ectomy Dr. May 2017 Surgical History Lumbar fusion-Doctor May Hospitalization History See Above [facility] Other Chief Complaint and Reason for Visit Chief Complaint g35 m47.817 g35 Chief Complaint M54.16. Chief Complaint g35 Family History No Family History Records Found Relationship Condition Age at Onset Recorded Date/T jazmine father Hypertension Unknown Not Specified Autoimmune disease Unknown Advance Directives No Advanced Directives Records Found Advance Directive Response Recorded Date/ Time Advance Directives No September 11:18am Summary Purpose Additional Source Comments Care Teams (unrecognized sec tion and content) Team Status: Active Member Role Status Susi Schuster MD Primary Care Provider Active Team Status: Inactive Member Role Status Susi Schuster MD Primary Care Provider Active Js May MD Attending Provider Active Team Status: Inactive Member Role Status Susi Schuster MD Primary Care Provider Active Obey Lopez PA-C Attending Provider Active Team Status: Inactive Member Role Status Susi Schuster MD Primary Care Provider Active Vanda Camarena PA-C Attending Provider Active Goals (unrecognized section and content) Goals may be documented in a n alternate sectionNo InformationNo InformationNo InformationGoals may be documented in an alternate sectionGoals may be documented in an alternate section REASON FOR VISIT (unrecogniz ed section and content) XR6 months po XLIF6 month Fo llow up neck, 1 YEAR PO XLIF (unrecognized sect ion and content) No Status Records FoundNo Status Records Found INFORMATION SOURCE (unrecogn ized section and content) DATE CREATED AUTHOR 09/18/2022 [facility] DATE CREATED AUTHOR 'S ORGANIZ ATION 06/21/2023 [facility] FOR RECORDS PERTAINING TO PATIENTS WHO ARE OR HAVE BEEN ENROLLED IN A CHEMICAL DEPENDENCY/SUBSTANCEABUSE PROGRAM, SOME INFORMATION MAY BE OMITTED. This clinical summary was aggregated from multiple sources. Caution should be exercised in using it in the provision of clinical care. This summary normalizes information from multiple sources, and as a consequence, information in this document may materially change the coding, format and clinical context of patient data. In addition, data may be omitted in some cases. CLINICAL DECISIONS SHOULD BE BASED ON THE PRIMARY CLINICAL RECORDS. [facility], [facility]. provides no warranty or guarantee of the accuracy or completeness of information in this document.
--- NOTE | 2023-10-19 08:12 | US_ITS ---
[address] [address] Patient Name: TAVIA CANALES MRN: [id number] date: 1980 Sex: M Assigned Patient Location: [place] Current Patient Location: Accession/Order Number: [id number] Exam Date: 10/19/2023 08:15 Report Date: 10/19/2023 10:20 At the request of: OBEY MEJIA Procedure: US arterial duplex LE LT EXAMINATION: US arterial duplex LE LT HISTORY: Unspecified Disorder Of Circulatory System I99.9 COMPARISON: No relevant comparison available. TECHNIQUE: Color duplex Doppler ultrasound evaluation analysis was performed in the usual manner. FINDINGS: No flow significant stenosis, occlusion or aneurysm. Normal color and Doppler flow. No atherosclerotic disease US/US arterial duplex LE LT IMPRESSION: Normal examination. Electronically authenticated by: APARNA VILLASEÑOR Date: 10/19/2023 10:20
== END 2023-10-19 08:07 | disposition home or self-care (01) ==
LOC: US 08:06
PROVIDERS: Visit Provider Physician Assistant Medical
DX: I99.9 Unspecified disorder of circulatory system (principal)
CPT/HCPCS: 93926

== ENCOUNTER 2023-11-03 13:31 | Outpatient (OUT) | payer OTHER, SELFPAY ==
--- OUTSIDE RECORDS SUMMARY | 2023-11-03 13:37 | XMS_ITS | CCD ---
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 Name Role Phone MD Tracey Schuster Primary Care Provider WALDO Lopez Attending Provider MD Js May Attending Provider [phone] WALDO Camarena Attending Provider Js May Unavailable OBEY LOPEZ Attending Unavailable [...] Care Provider MD Js May Attending Provider [phone] MD Tracey Schuster Primary Care Provider WALDO Lopez Attending Provider [phone] Obey Lopez Attending Unavailable Obey Lopez [...] reactions 04-16-20 20 Contraindicated R/T 1 kidney [facility] (4 sources) Penicillins; Translations: [Penicillins] Propensity to adverse reactions 04-06-20 15 Vomiting [facility] (3 sources) penicillAMINE Drug Allergy Unknown [facility] [employer] Other (3 sources) Anti-Inflammator y Enzyme Drug allergy Unknown [facility] [employer] Other (1 source) Penicillin Drug Allergy N/V [facility] [employer] Other Medications Current Medications Medication Drug Class(es) [...] 01-26-2022 Episodic Other aftercare (1 source) Other chart calculator (current) drug therapy; Translations: [OTH MARBLE [employer]ZZ[employer] 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] Onset: 02-01-2022 Episodic Other [...] conon 06-20-2023 MR cervical spine wo/w con [facility] [place] [address] [place] [address] MRI Report Signed Patient: Alexis Negrete II MR#: [id number] : 1980 Acct:[id number] Age/Sex: 42 / M ADM Date: 06/20/23 Loc: MR Room: Type: [facility] Attending Dr: Obey Lopez PA-C Copies [...] Heidi Richardson M.D.06/20/2023 1:44 PM Dictation Location: [place] [address] Transcribed By: [facility] 06/20/23 1344 Dictated By: Heidi Richardson II, MD 06/20/23 1338 Signed By: 06/20/23 1344 [facility] MR thoracic spine wo/w conon 06-20-2023 MR thoracic spine wo/w con [facility] [place] [address] MRI Report Signed Patient: Alexis Negrete II MR#: [id number] : 1980 Acct:[id number] Age/Sex: 42 / M ADM Date: 06/20/23 Loc: Room: Type: [facility] Attending Dr: Obey Lopez PA-C Copies [...] Heidi Richardson M.D.06/20/2023 1:37 PM Dictation Location: [place] [address] Transcribed By: [facility] 06/20/231336 Dictated By: Heidi Richardson II, MD 06/20/231330 Signed By: 06/20/231336 [facility] MR head/brain wo/w conon MR head/brain wo/w con [facility] [place] [address] MRI Report Signed Patient: Alexis Negrete II MR#: [id number] : 1980 Acct:[id number] Age/Sex: 42 / M ADM Date: 01/10/23 Loc: MR Room: [facility] Attending Dr: Obey Lopez PA-C Copies to: [...] Heidi Richardson M.D.01/11/2023 8:56 AM Dictation Location: [place] [address] Transcribed By: [facility] 01/11/23855 Dictated By: Heidi Richardson II, MD 01/11/2348 Signed By: 01/11/23855 Normal [facility] XR lumbar spine AP/LAT/FLX/E XTon 11-29-2022 XR lumbar spine AP/LAT/FLX/EXT [facility] [place] [address] XRay Report Signed Patient: AnlavonAleixs marinelli II MR#: [id number] : 1980 Acct:[id number] Age/Sex: 42 / M ADM Date: 11/29/22 Loc: XD Room: Type: [facility] Attending Dr: Js May MD Copies [...] Bergeron Jr., D.OSiri11/29/2022 3:57 PM Dictation Location: [place] [address] Transcribed By: [facility] 11/29/22 155 Dictated By: Willian Bergeron Jr, DO 11/29/22 1555 Signed By: 11/29/22 1557 [facility] CBC AUTO DIFFon 09-16-2022 BASO # 0.0 103/ul Normal 0.0-0.1 [facility] Comment on above: Performed By: #### C BC #### [facility] [address] [place] [address] [address] Nehemiah Vargas Basophils/100 WBC (Bld) 0.5 % Normal 0.2-2.0 [facility] Comment on above: Performed By: #### C BC #### [facility] [address] [place] [address] [address] Nehemiah Vargas EO # 0.0 103/ul Normal 0.0-0.7 [facility] Comment on above: Performed By: #### C BC #### [facility] [address] [place] [address] [address] Nehemiah Vargas Eosinophils/100 WBC (Bld) 0.5 % Critically low 0.9-7.0 [facility] Comment on above: Performed By: #### C BC #### [facility] [address] [place] [address] Dr. Nehemiah Vargas Erythrocyte distribution width (RBC) [Ratio] 13.2 % Normal 11.0-15.0 [facility] Comment on above: Performed By: #### C BC #### [facility] [address] [place] [address] Dr. Nehemiah Vargas Hematocrit (Bld) [Volume fraction] 50.1 % Normal 42.0-54.0 [facility] Comment on above: Performed By: #### C BC #### [facility] [address] [place] [address] Dr. Nehemiah Vargas Hemoglobin (Bld) [Mass/Vol] 15.2 g/dL Normal 14.0-18.0 [facility] Comment on above: Performed By: #### C BC #### [facility] [address] [place] [address] Dr. Nehemiah Vargas IG # 0.02 10e3/ul Normal 0.00-0.03 [facility] Comment on above: Performed By: #### C BC #### [facility] [address] [place] [address] Dr. Nehemiah Vargas IG % 0.3 % Normal 0.0-0.5 [facility] Comment on above: Performed By: #### C BC #### [facility] [address] [place] [address] Dr. Nehemiah Vargas LYMPH # 1.8 103/ul Normal 1.2-3.8 [facility] Comment on above: Performed By: #### C BC #### [facility] [address] [place] [address] Dr. Nehemiah Vargas Lymphocytes/100 WBC (Bld) 22.9 % Normal 20.5-60.0 [facility] Comment on above: Performed By: #### C BC #### [facility] [address] [place] [address] Dr. Nehemiah Vargas MANUAL DIFF REQ NO Normal [facility] Comment on above: Performed By: #### C BC #### [facility] [address] [place] [address] Dr. Nehemiah Vargas MCH (RBC) [Entitic mass] 29.9 pg Normal 25.9-34.0 [facility] Comment on above: Performed By: #### C BC #### [facility] [address] [place] [address] Dr. Nehemiah Vargas MCHC (RBC) [Mass/Vol] 30.3 g/dL Normal 29.9-35.2 [facility] Comment on above: Performed By: #### C BC #### [facility] [address] [place] [address] Dr. Nehemiah Vargas MCV (RBC) [Entitic vol] 98.4 fL Critically high 80.0-94.0 [facility] Comment on above: Performed By: #### C BC #### [facility] [address] [place] [address] Dr. Nehemiah Vargas MONO # 0.5 103/ul Normal 0.3-0.8 [facility] Comment on above: Performed By: #### C BC #### [facility] [address] [place] [address] Dr. Nehemiah Vargas Monocytes/100 WBC (Bld) 6.7 % Normal 1.7-12.0 [facility] Comment on above: Performed By: #### C BC #### [facility] [address] [place] [address] Dr. Nehemiah Vargas NEUT # 5.5 103/ul Normal 1.4-6.5 [facility] Comment on above: Performed By: #### C BC #### [facility] [address] [place] [address] Dr. Nehemiah Vargas Neutrophils/100 WBC (Bld) 69.1 % Normal 43.0-75.0 [facility] Comment on above: Performed By: #### C BC #### [facility] [address] [place] [address] Dr. Nehemiah Vargas Platelet mean volume (Bld) [Entitic vol] 10.1 fL Normal 9.5-13.5 [facility] Comment on above: Performed By: #### C BC #### [facility] [address] [place] [address] [address] Nehemiah Vargas PLT 159 103/ul Normal 150-450 [facility] Comment on above: Performed By: #### C BC #### [facility] [address] [place] [address] [address] Nehemiah Vargas RBC 5.09 106/ul Normal 4.70-6.10 [facility] Comment on above: Performed By: #### C BC #### [facility] [address] [place] [address] Dr. Nehemiah Vargas WBC 7.9 103/ul Normal 4.0-11.0 [facility] Comment on above: Performed By: #### C BC #### [facility] [address] [place] [address] Dr. Nehemiah Vargas PROF 14(COMP METB)on 023 Albumin [Mass/Vol] 3.9 g/dL Normal 3.4-5.0 [facility] Comment on above: Performed By: #### C MP #### [facility] [address] [place] [address] Dr. Nehemiah Vargas Albumin/Globulin [Mass ratio] 1.2 {ratio} Normal [facility] Comment on above: Performed By: #### C MP #### [facility] [address] [place] [address] Dr. Nehemiah Vargas ALP [Catalytic activity/Vol] 118 U/L Critically high 46-116 [facility] Comment on above: Performed By: #### C MP #### [facility] [address] [place] [address] Dr. Nehemiah Vargas ALT [Catalytic activity/Vol] 25 U/L Normal 16-63 [facility] Comment on above: Performed By: #### C MP #### [facility] [address] [place] [address] Dr. Nehemiah Vargas Anion gap [Moles/Vol] 11.7 mmol/L Normal [facility] Comment on above: Performed By: #### C MP #### [facility] [address] [place] [address] Dr. Nehemiah Vargas AST [Catalytic activity/Vol] 24 U/L Normal 15-37 [facility] Comment on above: Performed By: #### C MP #### [facility] [address] [place] [address] [address] Nehemiah Vargas Bilirubin [Mass/Vol] 0.5 mg/dL Normal 0.2-1.0 [facility] Comment on above: Performed By: #### C MP #### [facility] [address] [place] [address] [address] Nehemiah Vargas Calcium [Mass/Vol] 8.8 mg/dL Normal 8.5-10.1 [facility] Comment on above: Performed By: #### C MP #### [facility] [address] [place] [address] Dr. Nehemiah Vargas Chloride [Moles/Vol] 101 mmol/L Normal 98-107 [facility] Comment on above: Performed By: #### C MP #### [facility] [address] [place] [address] [address] Nehemiah Vargas CO2 [Moles/Vol] 30.4 mmol/L Normal 21.0-32.0 [facility] Comment on above: Performed By: #### C MP #### [facility] [address] [place] [address] Dr. Nehemiah Vargas Creatinine [Mass/Vol] 0.86 mg/dL Normal 0.70-1.30 [facility] Comment on above: Performed By: #### C MP #### [facility] [address] [place] [address] [address] Nehemiah Vargas EGFR-AF MALDIVIAN >60 Normal >=60 [facility] Comment on above: Performed By: #### C MP #### [facility] [address] [place] [address] [address] Nehemiah Vargas EGFR-NON AF MALDIVIAN >60 Normal >=60 [facility] Comment on above: Performed By: #### C MP #### [facility] [address] [place] [address] [address] Nehemiah Vargas Globulin (S) [Mass/Vol] 3.2 g/dL Normal [facility] Comment on above: Performed By: #### C MP #### [facility] [address] [place] [address] [address] Nehemiah Vargas Glucose [Mass/Vol] 116 mg/dL Critically high 74-106 [facility] Comment on above: Performed By: #### C MP #### [facility] [address] [place] [address] [address] Nehemiah Vargas Potassium [Moles/Vol] 4.1 mmol/L Normal 3.5-5.1 [facility] Comment on above: Performed By: #### C MP #### [facility] [address] [place] [address] [address] Nehemiah Vargas Protein [Mass/Vol] 7.1 g/dL Normal 6.4-8.2 [facility] Comment on above: Performed By: #### C MP #### [facility] [address] [place] [address] [address] Nehemiah Vargas Sodium [Moles/Vol] 139 mmol/L Normal 136-145 [facility] Comment on above: Performed By: #### C MP #### [facility] [address] [place] [address] [address] Nehemiah Vargas Urea nitrogen [Mass/Vol] 10.0 mg/dL Normal 7.0-18.0 [facility] Comment on above: Performed By: #### C MP #### [facility] [address] [place] [address] [address] Nehemiah Vargas Urea nitrogen/Creatinin e [Mass ratio] 11.6 mg/mg Normal [facility] Comment on above: Performed By: #### C MP #### [facility] [address] [place] [address] [address] Nehemiah Vargas VIT D 25-OH LABCORPon 2021 Vitamin D, 25-Hydroxy 42.1 ng/mL Normal 30.0-100.0 [facility] Comment on above: Result Comment: Bria min D deficiency has been defined by the [place] of Medicine and an Endocrine Society practice guideline as a level of serum 25-OH vitamin D less than 20 ng/mL (1,2). The Endocrine Society went on to further define vitamin D insufficiency as a level between 21 and 29 ng/mL (2). 1. IOM ([place] of Medicine). 2010. Dietary reference intakes for calcium and D. [place]: The National Academies Press. 2. Deana MF, Eddie GRIFFITH, Migel AMADOR, et al. Evaluation, treatment, and prevention of vitamin D deficiency: an Endocrine Society clinical practice guideline. JCEM. 2010; 96(7):1911-30. Performed By: #### V ITADLC #### [facility] [address] [place] [address] Dr. Nehemiah Vargas FREE T3on 04-08-2022 FREE T3 1.59 pg/mlL Critically low 2.18-3.98 [facility] Comment on above: Performed By: #### C BC #### [facility] [address] [place] [address] Dr. Nehemiah Vargas FREE T4on 04-08-2022 Free T4 [Mass/Vol] 0.78 ng/dL Normal 0.76-1.46 [facility] Comment on above: Performed By: #### C BC #### [facility] [address] [place] [address] [address] Nehemiah Vargas TSHon 04-08-2022 TSH 0.219 uIU/mL Critically low 0.358-3.740 [facility] Comment on above: Performed By: #### C BC #### [facility] [address] [place] [address] Dr. Nehemiah Vargas PROLACTINon 01-23-2022 Prolactin 107.0 ng/mL Critically high 4.0-15.2 [facility] Comment on above: Performed By: #### C BC #### [facility] [address] [place] [address] Dr. Nehemiah Vargas CARDIAC HEIDI ADMITon 022 CK [Catalytic activity/Vol] 108 U/L Normal 39-308 [facility] Comment on above: Performed By: #### C BC #### [facility] [address] [place] [address] Dr. Nehemiah Vargas CK.MB [Mass/Vol] 3.01 ng/mL Normal <=3.60 [facility] Comment on above: Performed By: #### C BC #### [facility] [address] [place] [address] Dr. Nehemiah Vargas HSTROP 4.0 pg/mL Normal 4.0-76.1 [facility] Comment on above: Result Comment: CUT- OFF POINTS HAVE BEEN ESTABLISHED BASED ON THE FOURTH UNIVERSAL DEFINITIONS OF MYOCARDIAL INFARCTION. THE UPPER REFERENCE LIMIT (URL) OF TROPONIN, DEFINED THE 99TH PERCENTILE OF cTnI DISTRIBUTION IN A REFERENCE POPULATION, HAS BEEN CONFIRMED THE DECISION THRESHOLD FOR [place] DIAGNOSIS. Performed By: #### C BC #### [facility] [address] [place] [address] Dr. Nehemiah Vargas RICARDO 33 ng/mL Normal 16-96 [facility] Comment on above: Performed By: #### C BC #### [facility] [address] [place] [address] Dr. Nehemiah Vargas CBC AUTO DIFFon 01-22-2022 BASO # 0.0 103/ul Normal 0.0-0.1 [facility] Comment on above: Performed By: #### C BC #### [facility] [address] [place] [address] Dr. Nehemiah Vargas Basophils/100 WBC (Bld) 0.5 % Normal 0.2-2.0 [facility] Comment on above: Performed By: #### C BC #### [facility] [address] [place] [address] Dr. Nehemiah Vargas EO # 0.0 103/ul Normal 0.0-0.7 [facility] Comment on above: Performed By: #### C BC #### [facility] [address] [place] [address] Dr. Nehemiah Vargas Eosinophils/100 WBC (Bld) 0.3 % Critically low 0.9-7.0 [facility] Comment on above: Performed By: #### C BC #### [facility] [address] [place] [address] Dr. Nehemiah Vargas Erythrocyte distribution width (RBC) [Ratio] 12.4 % Normal 11.0-15.0 [facility] Comment on above: Performed By: #### C BC #### [facility] [address] [place] [address] Dr. Nehemiah Vargas Hematocrit (Bld) [Volume fraction] 43.1 % Normal 42.0-54.0 [facility] Comment on above: Performed By: #### C BC #### [facility] [address] [place] [address] Dr. Nehemiah Vargas Hemoglobin (Bld) [Mass/Vol] 14.6 g/dL Normal 14.0-18.0 [facility] Comment on above: Performed By: #### C BC #### [facility] [address] [place] [address] Dr. Nehemiah Vargas IG # 0.02 10e3/ul Normal 0.00-0.03 [facility] Comment on above: Performed By: #### C BC #### [facility] [address] [place] [address] Dr. Nehemiah Vargas IG % 0.3 % Normal 0.0-0.5 [facility] Comment on above: Performed By: #### C BC #### [facility] [address] [place] [address] Dr. Nehemiah Vargas LYMPH # 0.9 103/ul Critically low 1.2-3.8 [facility] Comment on above: Performed By: #### C BC #### [facility] [address] [place] [address] Dr. Nehemiah Vargas Lymphocytes/100 WBC (Bld) 13.1 % Critically low 20.5-60.0 [facility] Comment on above: Performed By: #### C BC #### [facility] [address] [place] [address] Dr. Nehemiah Vargas MANUAL DIFF REQ NO Normal [facility] Comment on above: Performed By: #### C BC #### [facility] [address] [place] [address] Dr. Nehemiah Vargas MCH (RBC) [Entitic mass] 30.0 pg Normal 25.9-34.0 [facility] Comment on above: Performed By: #### C BC #### [facility] [address] [place] [address] [address] Nehemiah Vargas MCHC (RBC) [Mass/Vol] 33.9 g/dL Normal 29.9-35.2 [facility] Comment on above: Performed By: #### C BC #### [facility] [address] [place] [address] [address] Nehemiah Vargas MCV (RBC) [Entitic vol] 88.7 fL Normal 80.0-94.0 [facility] Comment on above: Performed By: #### C BC #### [facility] [address] [place] [address] [address] Nehemiah Vargas MONO # 0.4 103/ul Normal 0.3-0.8 [facility] Comment on above: Performed By: #### C BC #### [facility] [address] [place] [address] Dr. Nehemiah Vargas Monocytes/100 WBC (Bld) 5.3 % Normal 1.7-12.0 [facility] Comment on above: Performed By: #### C BC #### [facility] [address] [place] [address] [address] Nehemiah Vargas NEUT # 5.4 103/ul Normal 1.4-6.5 [facility] Comment on above: Performed By: #### C BC #### [facility] [address] [place] [address] Dr. Nehemiah Vargas Neutrophils/100 WBC (Bld) 80.5 % Critically high 43.0-75.0 [facility] Comment on above: Performed By: #### C BC #### [facility] [address] [place] [address] [address] Nehemiah Vargas Platelet mean volume (Bld) [Entitic vol] 9.1 fL Critically low 9.5-13.5 [facility] Comment on above: Performed By: #### C BC #### [facility] [address] [place] [address] [address] Nehemiah Vargas PLT 198 103/ul Normal 150-450 [facility] Comment on above: Performed By: #### C BC #### [facility] [address] [place] [address] Dr. Nehemiah Vargas RBC 4.86 106/ul Normal 4.70-6.10 [facility] Comment on above: Performed By: #### C BC #### [facility] [address] [place] [address] Dr. Nehemiah Vargas WBC 6.7 103/ul Normal 4.0-11.0 [facility] Comment on above: Performed By: #### C BC #### [facility] [address] [place], [place] [id number] Dr. Nehemiah Vargas CT HEAD WO CONon [...] IZZY CHAMPAGNE Date: 2022-01-22 12:00 Normal [facility] LACTATE/LACTIC ACIDon 2021 Lactate [Moles/Vol] 1.2 mmol/L Normal 0.4-1.9 [facility] Comment on above: Performed By: #### L ACT #### [facility] [address] [place] [address] Dr. Nehemiah Vargas LIPASEon 01-22-2022 Lipase [Catalytic activity/Vol] 95.0 U/L Normal 73.0-393.0 [facility] Comment on above: Performed By: #### C BC #### [facility] [address] [place] [address] Dr. Nehemiah Vargas PH VENOUS BLOODon 01-22-2022 PCO2 VENOUS 51.9 mmHg Normal 40.0-52.0 [facility] Comment on above: Performed By: #### C BC #### [facility] [address] [place] [address] Dr. Nehemiah Vargas pH VENOUS 7.301 Critically low 7.330-7.430 [facility] Comment on above: Performed By: #### C BC #### [facility] [address] [place] [address] Dr. Nehemiah Vargas PROF 14(COMP METB)on 022 Albumin [Mass/Vol] 3.7 g/dL Normal 3.4-5.0 [facility] Comment on above: Performed By: #### C BC #### [facility] [address] [place] [address] Dr. Nehemiah Vargas Albumin/Globulin [Mass ratio] 1.2 {ratio} Normal [facility] Comment on above: Performed By: #### C BC #### [facility] [address] [place] [address] Dr. Nehemiah Vargas ALP [Catalytic activity/Vol] 97 U/L Normal 46-116 [facility] Comment on above: Performed By: #### C BC #### [facility] [address] [place] [address] Dr. Nehemiah Vargas ALT [Catalytic activity/Vol] 26 U/L Normal 16-63 [facility] Comment on above: Performed By: #### C BC #### [facility] [address] [place] [address] Dr. Nehemiah Vargas Anion gap [Moles/Vol] 11.1 mmol/L Normal [facility] Comment on above: Performed By: #### C BC #### [facility] [address] [place] [address] Dr. Nehemiah Vargas AST [Catalytic activity/Vol] 20 U/L Normal 15-37 [facility] Comment on above: Performed By: #### C BC #### [facility] [address] [place] [address] Dr. Nehemiah Vargas Bilirubin [Mass/Vol] 0.4 mg/dL Normal 0.2-1.0 [facility] Comment on above: Performed By: #### C BC #### [facility] [address] [place] [address] Dr. Nehemiah Vargas Calcium [Mass/Vol] 8.4 mg/dL Critically low 8.5-10.1 [facility] Comment on above: Performed By: #### C BC #### [facility] [address] [place] [address] Dr. Nehemiah Vargas Chloride [Moles/Vol] 96 mmol/L Critically low 98-107 [facility] Comment on above: Performed By: #### C BC #### [facility] [address] [place] [address] Dr. Nehemiah Vargas CO2 [Moles/Vol] 28.1 mmol/L Normal 21.0-32.0 [facility] Comment on above: Performed By: #### C BC #### [facility] [address] [place] [address] Dr. Nehemiah Vargas Creatinine [Mass/Vol] 0.85 mg/dL Normal 0.70-1.30 [facility] Comment on above: Performed By: #### C BC #### [facility] [address] [place] [address] Dr. Nehemiah Vargas EGFR-AF MALDIVIAN >60 Normal >=60 [facility] Comment on above: Performed By: #### C BC #### [facility] [address] [place] [address] Dr. Nehemiah Vargas EGFR-NON AF MALDIVIAN >60 Normal >=60 [facility] Comment on above: Performed By: #### C BC #### [facility] [address] [place] [address] Dr. Nehemiah Vargas Globulin (S) [Mass/Vol] 3.1 g/dL Normal [facility] Comment on above: Performed By: #### C BC #### [facility] [address] [place] [address] Dr. Nehemiah Vargas Glucose [Mass/Vol] 138 mg/dL Critically high 74-106 [facility] Comment on above: Performed By: #### C BC #### [facility] [address] [address] [address] Nehemiah Vargas Potassium [Moles/Vol] 4.2 mmol/L Normal 3.5-5.1 [facility] Comment on above: Performed By: #### C BC #### [facility] [address] [address] [address] Nehemiah Vargas Protein [Mass/Vol] 6.8 g/dL Normal 6.4-8.2 [facility] Comment on above: Performed By: #### C BC #### [facility] [address] [place] [address] Dr. Nehemiah Vargas Sodium [Moles/Vol] 131 mmol/L Critically low 136-145 [facility] Comment on above: Performed By: #### C BC #### [facility] [address] [place] [address] Dr. Nehemiah Vargas Urea nitrogen [Mass/Vol] 7.0 mg/dL Normal 7.0-18.0 [facility] Comment on above: Performed By: #### C BC #### [facility] [address] [place] [address] Dr. Nehemiah Vargas Urea nitrogen/Creatinin e [Mass ratio] 8.2 mg/mg Normal [facility] Comment on above: Performed By: #### C BC #### [facility] [address] [place] [address] Dr. Nehemiah Vargas TSHon 01-22-2022 TSH 1.003 uIU/mL Normal 0.358-3.740 [facility] Comment on above: Performed By: #### C BC #### [facility] [address] [place] [address] Dr. Nehemiah Vargas TSH RANGE SEE BELOW Normal [facility] Comment on above: Result Comment: <0.3 4 UIU/ml HYPERTHYROID 0.34-5.60 UIU/ml EUTHYROID >5.60 UIU/ml HYPOTHYROID Performed By: #### C BC #### [facility] [address] [place] [address] Dr. Nehemiah Vargas XR CHEST 1 Von [...] IZZY [place] Date: 2022-01-22 12:01 Normal [facility] CBC AUTO DIFFon 01-19-2022 BASO # 0.0 103/ul Normal 0.0-0.1 [facility] Comment on above: Performed By: #### C BC #### [facility] [address] [place] [address] Dr. Nehemiah Vargas Basophils/100 WBC (Bld) 0.4 % Normal 0.2-2.0 [facility] Comment on above: Performed By: #### C BC #### [facility] [address] [place] [address] Dr. Nehemiah Vargas EO # 0.1 103/ul Normal 0.0-0.7 [facility] Comment on above: Performed By: #### C BC #### [facility] [address] [place] [address] Dr. Nehemiah Vargas Eosinophils/100 WBC (Bld) 1.3 % Normal 0.9-7.0 [facility] Comment on above: Performed By: #### C BC #### [facility] [address] [place] [address] Dr. Nehemiah Vargas Erythrocyte distribution width (RBC) [Ratio] 12.9 % Normal 11.0-15.0 [facility] Comment on above: Performed By: #### C BC #### [facility] [address] [place] [address] Dr. Nehemiah Vargas Hematocrit (Bld) [Volume fraction] 42.8 % Normal 42.0-54.0 [facility] Comment on above: Performed By: #### C BC #### [facility] [address] [address] [address] Nehemiah Vargas Hemoglobin (Bld) [Mass/Vol] 13.9 g/dL Critically low 14.0-18.0 [facility] Comment on above: Performed By: #### C BC #### [facility] [address] [address] [address] Nehemiah Vargas IG # 0.02 10e3/ul Normal 0.00-0.03 [facility] Comment on above: Performed By: #### C BC #### [facility] [address] [place] [address] Dr. Nehemiah Vargas IG % 0.3 % Normal 0.0-0.5 [facility] Comment on above: Performed By: #### C BC #### [facility] [address] [place] [address] Dr. Nehemiah Vargas LYMPH # 1.8 103/ul Normal 1.2-3.8 [facility] Comment on above: Performed By: #### C BC #### [facility] [address] [place] [address] Dr. Nehemiah Vargas Lymphocytes/100 WBC (Bld) 26.5 % Normal 20.5-60.0 [facility] Comment on above: Performed By: #### C BC #### [facility] [address] [place] [address] Dr. Nehemiah Vargas MANUAL DIFF REQ NO Normal [facility] Comment on above: Performed By: #### C BC #### [facility] [address] [place] [address] Dr. Nehemiah Vargas MCH (RBC) [Entitic mass] 29.6 pg Normal 25.9-34.0 [facility] Comment on above: Performed By: #### C BC #### [facility] [address] [place] [address] Dr. Nehemiah Vargas MCHC (RBC) [Mass/Vol] 32.5 g/dL Normal 29.9-35.2 [facility] Comment on above: Performed By: #### C BC #### [facility] [address] [address] [address] Nehemiah Vargas MCV (RBC) [Entitic vol] 91.1 fL Normal 80.0-94.0 [facility] Comment on above: Performed By: #### C BC #### [facility] [address] [address] [address] Nehemiah Vargas MONO # 0.5 103/ul Normal 0.3-0.8 [facility] Comment on above: Performed By: #### C BC #### [facility] [address] [address] [address] Nehemiah Vargas Monocytes/100 WBC (Bld) 6.9 % Normal 1.7-12.0 [facility] Comment on above: Performed By: #### C BC #### [facility] [address] [place] [address] Dr. Nehemiah Vargas NEUT # 4.4 103/ul Normal 1.4-6.5 [facility] Comment on above: Performed By: #### C BC #### [facility] [address] [place] [address] Dr. Nehemiah Vargas Neutrophils/100 WBC (Bld) 64.6 % Normal 43.0-75.0 [facility] Comment on above: Performed By: #### C BC #### [facility] [address] [place] [address] Dr. Nehemiah Vargas Platelet mean volume (Bld) [Entitic vol] 10.3 fL Normal 9.5-13.5 [facility] Comment on above: Performed By: #### C BC #### [facility] [address] [place] [address] Dr. Nehemiah Vargas PLT 193 103/ul Normal 150-450 [facility] Comment on above: Performed By: #### C BC #### [facility] [address] [place] [address] Dr. Nehemiah Vargas RBC 4.70 106/ul Normal 4.70-6.10 [facility] Comment on above: Performed By: #### C BC #### [facility] [address] [place] [address] Dr. Nehemiah Vargas WBC 6.8 103/ul Normal 4.0-11.0 [facility] Comment on above: Performed By: #### C BC #### [facility] [address] [place] [address] Dr. Nehemiah Vargas PROF CHEM 8 (BAS METB)on Anion gap [Moles/Vol] 8.7 mmol/L Normal [facility] Comment on above: Performed By: #### C BC #### [facility] [address] [place] [address] Dr. Nehemiah Vargas Calcium [Mass/Vol] 8.6 mg/dL Normal 8.5-10.1 [facility] Comment on above: Performed By: #### C BC #### [facility] [address] [place] [address] Dr. Nehemiah Vargas Chloride [Moles/Vol] 100 mmol/L Normal 98-107 [facility] Comment on above: Performed By: #### C BC #### [facility] [address] [place] [address] Dr. Nehemiah Vargas CO2 [Moles/Vol] 29.8 mmol/L Normal 21.0-32.0 [facility] Comment on above: Performed By: #### C BC #### [facility] [address] [place] [address] Dr. Nehemiah Vargas Creatinine [Mass/Vol] 0.88 mg/dL Normal 0.70-1.30 [facility] Comment on above: Performed By: #### C BC #### [facility] [address] [place] [address] Dr. Nehemiah Vargas EGFR-AF MALDIVIAN >60 Normal >=60 [facility] Comment on above: Performed By: #### C BC #### [facility] [address] [place] [address] Dr. Nehemiah Vargas EGFR-NON AF MALDIVIAN >60 Normal >=60 [facility] Comment on above: Performed By: #### C BC #### [facility] [address] [place] [address] Dr. Nehemiah Vargas Glucose [Mass/Vol] 107 mg/dL Critically high 74-106 [facility] Comment on above: Performed By: #### C BC #### [facility] [address] [address] [address] Nehemiah Vargas Potassium [Moles/Vol] 4.5 mmol/L Normal 3.5-5.1 [facility] Comment on above: Performed By: #### C BC #### [facility] [address] [address] [address] Nehemiah Vargas Sodium [Moles/Vol] 134 mmol/L Critically low 136-145 [facility] Comment on above: Performed By: #### C BC #### [facility] [address] [place] [address] Dr. Nehemiah Vargas Urea nitrogen [Mass/Vol] 9.0 mg/dL Normal 7.0-18.0 [facility] Comment on above: Performed By: #### C BC #### [facility] [address] [place] [address] Dr. Nehemiah Vargas Urea nitrogen/Creatinin e [Mass ratio] 10.2 mg/mg Normal [facility] Comment on above: Performed By: #### C BC #### [facility] [address] [place] [address] Dr. Nehemiah Vargas TSHon 01-19-2022 TSH 0.322 uIU/mL Critically low 0.358-3.740 [facility] Comment on above: Performed By: #### C BC #### [facility] [address] [place] [address] Dr. Nehemiah Vargas TSH RANGE SEE BELOW Normal [facility] Comment on above: Result Comment: <0.3 4 UIU/ml HYPERTHYROID 0.34-5.60 UIU/ml EUTHYROID >5.60 UIU/ml HYPOTHYROID Performed By: #### C BC #### [facility] [address] [place] [address] Dr. Nehemiah Vargas CARDIAC HEIDI ADMITon 022 CK [Catalytic activity/Vol] 124 U/L Normal 39-308 [facility] Comment on above: Performed By: #### C MADM, CMP, ETH #### [facility] [address] [address] [address] Nehemiah Vargas CK.MB [Mass/Vol] 3.55 ng/mL Normal <=3.60 [facility] Comment on above: Performed By: #### C MADM, CMP, ETH #### [facility] [address] [address] [address] Nehemiah Vargas HSTROP 5.7 pg/mL Normal 4.0-76.1 [facility] Comment on above: Result Comment: CUT- OFF POINTS HAVE BEEN ESTABLISHED BASED ON THE FOURTH UNIVERSAL DEFINITIONS OF MYOCARDIAL INFARCTION. THE UPPER REFERENCE LIMIT (URL) OF TROPONIN, DEFINED THE 99TH PERCENTILE OF cTnI DISTRIBUTION IN A REFERENCE POPULATION, HAS BEEN CONFIRMED THE DECISION THRESHOLD FOR AK DIAGNOSIS. Performed By: #### C MADM, CMP, ETH #### [facility] [address] [address] [address] Nehemiah Vargas RICARDO 62 ng/mL Normal 16-96 [facility] Comment on above: Performed By: #### C MADM, CMP, ETH #### [facility] [address] [address] [address] Nehemiah Vargas CBC AUTO DIFFon 01-18-2022 BASO # 0.0 103/ul Normal 0.0-0.1 [facility] Comment on above: Performed By: #### C BC #### [facility] [address] [address] [address] Nehemiah Vargas Basophils/100 WBC (Bld) 0.4 % Normal 0.2-2.0 [facility] Comment on above: Performed By: #### C BC #### [facility] [address] [address] [address] Nehemiah Vargas EO # 0.1 103/ul Normal 0.0-0.7 [facility] Comment on above: Performed By: #### C BC #### [facility] [address] [address] [address] Nehemiah Vargas Eosinophils/100 WBC (Bld) 0.8 % Critically low 0.9-7.0 [facility] Comment on above: Performed By: #### C BC #### [facility] [address] [place] [address] Dr. Nehemiah Vargas Erythrocyte distribution width (RBC) [Ratio] 12.5 % Normal 11.0-15.0 [facility] Comment on above: Performed By: #### C BC #### [facility] [address] [place] [address] Dr. Nehemiah Vargas Hematocrit (Bld) [Volume fraction] 43.9 % Normal 42.0-54.0 [facility] Comment on above: Performed By: #### C BC #### [facility] [address] [place] [address] Dr. Nehemiah Vargas Hemoglobin (Bld) [Mass/Vol] 14.3 g/dL Normal 14.0-18.0 [facility] Comment on above: Performed By: #### C BC #### [facility] [address] [place] [address] Dr. Nehemiah Vargas IG # 0.03 10e3/ul Normal 0.00-0.03 [facility] Comment on above: Performed By: #### C BC #### [facility] [address] [place] [address] Dr. Nehemiah Vargas IG % 0.3 % Normal 0.0-0.5 [facility] Comment on above: Performed By: #### C BC #### [facility] [address] [place] [address] Dr. Nehemiah Vargas LYMPH # 0.9 103/ul Critically low 1.2-3.8 [facility] Comment on above: Performed By: #### C BC #### [facility] [address] [place] [address] Dr. Nehemiah Vargas Lymphocytes/100 WBC (Bld) 9.4 % Critically low 20.5-60.0 [facility] Comment on above: Performed By: #### C BC #### [facility] [address] [place] [address] Dr. Nehemiah Vargas MANUAL DIFF REQ NO Normal [facility] Comment on above: Performed By: #### C BC #### [facility] [address] [address] [address] Nehemiah Vargas MCH (RBC) [Entitic mass] 29.9 pg Normal 25.9-34.0 [facility] Comment on above: Performed By: #### C BC #### [facility] [address] [address] [address] Nehemiah Vargas MCHC (RBC) [Mass/Vol] 32.6 g/dL Normal 29.9-35.2 [facility] Comment on above: Performed By: #### C BC #### [facility] [address] [place] [address] Dr. Nehemiah Vargas MCV (RBC) [Entitic vol] 91.6 fL Normal 80.0-94.0 [facility] Comment on above: Performed By: #### C BC #### [facility] [address] [place] [address] Dr. Nehemiah Vargas MONO # 0.5 103/ul Normal 0.3-0.8 [facility] Comment on above: Performed By: #### C BC #### [facility] [address] [place] [address] Dr. Nehemiah Vargas Monocytes/100 WBC (Bld) 5.5 % Normal 1.7-12.0 [facility] Comment on above: Performed By: #### C BC #### [facility] [address] [place] [address] Dr. Nehemiah Vargas NEUT # 7.6 103/ul Critically high 1.4-6.5 [facility] Comment on above: Performed By: #### C BC #### [facility] [address] [place] [address] Dr. Nehemiah Vargas Neutrophils/100 WBC (Bld) 83.6 % Critically high 43.0-75.0 [facility] Comment on above: Performed By: #### C BC #### [facility] [address] [place] [address] Dr. Nehemiah Vargas Platelet mean volume (Bld) [Entitic vol] 9.1 fL Critically low 9.5-13.5 [facility] Comment on above: Performed By: #### C BC #### [facility] [address] [address] [address] Nehemiah Vargas PLT 169 103/ul Normal 150-450 [facility] Comment on above: Performed By: #### C BC #### [facility] [address] [place] [address] Dr. Nehemiah Vargas RBC 4.79 106/ul Normal 4.70-6.10 [facility] Comment on above: Performed By: #### C BC #### [facility] [address] [place] [address] Dr. Nehemiah Vargas WBC 9.1 103/ul Normal 4.0-11.0 [facility] Comment on above: Performed By: #### C BC #### [facility] [address] [place] [address] Dr. Nehemiah Vargas DRUG SCREEN RAPID (URINE)on 01-18-2022 AMP Negative Normal NEGATIVE [facility] Comment on above: Performed By: #### C BC #### [facility] [address] [place] [address] Dr. Nehemiah Vargas BAR Negative Normal NEGATIVE [facility] Comment on above: Performed By: #### C BC #### [facility] [address] [place] [address] Dr. Nehemiah Vargas BUP Negative Normal NEGATIVE [facility] Comment on above: Performed By: #### C BC #### [facility] [address] [place] [address] Dr. Nehemiah Vargas BZO Positive Abnormal NEGATIVE [facility] Comment on above: Performed By: #### C BC #### [facility] [address] [place] [address] Dr. Nehemiah Vargas JILLIAN Negative Normal NEGATIVE [facility] Comment on above: Performed By: #### C BC #### [facility] [address] [place] [address] Dr. Nehemiah Vargas CUT-OFFS SEE BELOW Normal [facility] Comment on above: Result Comment: AMP (Amphetamine): 500ng/mL, BAR (Barbituates): 200 ng/mL, BZO (Benzodiazepines): 150 ng/mL, BUP (Buprenorphine): 10 ng/mL, JILLIAN (Cocaine): 150 ng/mL, mAMP (Methamphetamine): 500 ng/mL, MTD (Methadone): 200 ng/mL, OPI (Opiates): 100 ng/mL, OXY (Oxycodone): 100 ng/mL, PCP (Phencyclidine): 25 ng/mL, PPX (Propoxyphene): 300 ng/mL, THC (Cannabinoids): 50 ng/mL, TCA (Trycyclic Antidepressants): 300 ng/mL Performed By: #### C BC #### [facility] [address] [place] [address] Dr. Nehemiah Vargas DRUG CUT HEADER DRUG CLASS TEST SYSTEM CUT-OFF CONCENTRATIONS ARE FOLLOWS: Normal [facility] Comment on above: Performed By: #### C BC #### [facility] [address] [place] [address] Dr. Nehemiah Vargas mAMP Negative Normal NEGATIVE [facility] Comment on above: Performed By: #### C BC #### [facility] [address] [place] [address] Dr. Nehemiah Vargas MTD Negative Normal NEGATIVE [facility] Comment on above: Performed By: #### C BC #### [facility] [address] [place] [address] Dr. Nehemiah Vargas OPI Negative Normal NEGATIVE [facility] Comment on above: Performed By: #### C BC #### [facility] [address] [place] [address] Dr. Nehemiah Vargas OXY Negative Normal NEGATIVE [facility] Comment on above: Performed By: #### C BC #### [facility] [address] [place] [address] Dr. Nehemiah Vargas PCP Negative Normal NEGATIVE [facility] Comment on above: Performed By: #### C BC #### [facility] [address] [place] [address] Dr. Nehemiah Vargas PPX Negative Normal NEGATIVE [facility] Comment on above: Performed By: #### C BC #### [facility] [address] [place] [address] Dr. Nehemiah Vargas TCA Positive Abnormal NEGATIVE [facility] Comment on above: Performed By: #### C BC #### [facility] [address] [address] [address] Nehemiah Vargas THC Positive Abnormal NEGATIVE [facility] Comment on above: Performed By: #### C BC #### [facility] [address] [place] [address] Dr. Nehemiah Vargas ER URINE PROFILEon 2 Bilirubin Ql (U) Negative Normal NEGATIVE [facility] Comment on above: Performed By: #### C BC #### [facility] [address] [place] [address] Dr. Nehemiah Vargas Clarity (U) CLEAR Normal CLEAR [facility] Comment on above: Performed By: #### C BC #### [facility] [address] [place] [address] Dr. Nehemiah Vargas Color (U) YELLOW Normal YELLOW [facility] Comment on above: Performed By: #### C BC #### [facility] [address] [place] [address] Dr. Nehemiah SANTO A micrscopic examination will be performed if indicated. Normal [facility] Comment on above: Performed By: #### C BC #### [facility] [address] [place] [address] Dr. Nehemiah Vargas Glucose Ql (U) Negative Normal NEGATIVE [facility] Comment on above: Performed By: #### C BC #### [facility] [address] [place] [address] Dr. Nehemiah Vargas Hemoglobin Ql (U) Negative Normal NEGATIVE [facility] Comment on above: Performed By: #### C BC #### [facility] [address] [place] [address] Dr. Nehemiah Vargas Ketones Ql (U) Negative Normal NEGATIVE [facility] Comment on above: Performed By: #### C BC #### [facility] [address] [place] [address] Dr. Nehemiah Vargas LEUKOCYTES Negative Normal NEGATIVE [facility] Comment on above: Performed By: #### C BC #### [facility] [address] [place] [address] Dr. Nehemiah Vargas Nitrite Ql (U) Negative Normal NEGATIVE [facility] Comment on above: Performed By: #### C BC #### [facility] [address] [place] [address] Dr. Nehemiah Vargas pH (U) 6.0 [pH] Normal 5-9 [facility] Comment on above: Performed By: #### C BC #### [facility] [address] [place] [address] Dr. Nehemiah Vargas Protein (U) [Mass/Vol] 30 mg/dL Abnormal NEGATIVE/ TRACE [facility] Comment on above: Performed By: #### C BC #### [facility] [address] [place] [address] Dr. Nehemiah Vargas SPEC GRAVITY >=1.030 Abnormal 1.005-<=1.025 [facility] Comment on above: Performed By: #### C BC #### [facility] [address] [place] [address] Dr. Nehemiah Vargas UR MICRO IND INDICATED Normal [facility] Comment on above: Performed By: #### C BC #### [facility] [address] [place] [address] Dr. Nehemiah Vargas Urobilinogen Qn (U) 0.2 {Stevenson'U}/dL Normal 0.2 - 1.0 [facility] Comment on above: Performed By: #### C BC #### [facility] [address] [place] [address] Dr. Nehemiah Vargas ETHANOL (BLD ALC)on 01-19-20 ALC NOTE NOTE: 80 mg/dl is th e legal limit for a blood alcohol level Normal [facility] Comment on above: Performed By: #### C SADIE VALLEJO, ETH #### [facility] [address] [place] [address] Dr. Nehemiah Vargas Ethanol [Mass/Vol] mg/dL Normal [facility] Comment on above: Performed By: #### C SADIE VALLEJO, ETH #### [facility] [address] [place] [address] Dr. Nehemiah Vargas PROF 14(COMP METB)on 022 Albumin [Mass/Vol] 3.5 g/dL Normal 3.4-5.0 [facility] Comment on above: Performed By: #### C SADIE VALLEJO, ETH #### [facility] [address] [address] [address] Nehemiah Vargas Albumin/Globulin [Mass ratio] 1.2 {ratio} Normal [facility] Comment on above: Performed By: #### C GENEVIEVE, SADIE, ETH #### [facility] [address] [address] [address] Nehemiah Vargas ALP [Catalytic activity/Vol] 94 U/L Normal 46-116 [facility] Comment on above: Performed By: #### C SADIE VALLEJO, ETH #### [facility] [address] [address] [address] Nehemiah Vargas ALT [Catalytic activity/Vol] 25 U/L Normal 16-63 [facility] Comment on above: Performed By: #### C GENEVIEVE CMP, ETH #### [facility] [address] [address] [address] Nehemiah Vargas Anion gap [Moles/Vol] 10.3 mmol/L Normal [facility] Comment on above: Performed By: #### C GENEVIEVE CMP, ETH #### [facility] [address] [place] [address] Dr. Nehemiah Vargas AST [Catalytic activity/Vol] 18 U/L Normal 15-37 [facility] Comment on above: Performed By: #### C GENEVIEVE, CMP, ETH #### [facility] [address] [address] [address] Nehemiah Vargas Bilirubin [Mass/Vol] 0.3 mg/dL Normal 0.2-1.0 [facility] Comment on above: Performed By: #### C GENEVIEVE CMP, ETH #### [facility] [address] [address] [address] Nehemiah Vargas Calcium [Mass/Vol] 8.4 mg/dL Critically low 8.5-10.1 [facility] Comment on above: Performed By: #### C MADM, CMP, ETH #### [facility] [address] [address] [address] Nehemiah Vargas Chloride [Moles/Vol] 98 mmol/L Normal 98-107 [facility] Comment on above: Performed By: #### C MADM, CMP, ETH #### [facility] [address] [place] [address] Dr. Nehemiah Vargas CO2 [Moles/Vol] 29.1 mmol/L Normal 21.0-32.0 [facility] Comment on above: Performed By: #### C MADM, CMP, ETH #### [facility] [address] [place] [address] Dr. Nehemiah Vargas Creatinine [Mass/Vol] 0.78 mg/dL Normal 0.70-1.30 [facility] Comment on above: Performed By: #### C MADM, CMP, ETH #### [facility] [address] [place] [address] Dr. Nehemiah Vargas EGFR-AF MALDIVIAN >60 Normal >=60 [facility] Comment on above: Performed By: #### C MADM, CMP, ETH #### [facility] [address] [place] [address] Dr. Nehemiah Vargas EGFR-NON AF MALDIVIAN >60 Normal >=60 [facility] Comment on above: Performed By: #### C MADM, CMP, ETH #### [facility] [address] [place] [address] Dr. Nehemiah Vargas Globulin (S) [Mass/Vol] 3.0 g/dL Normal [facility] Comment on above: Performed By: #### C MADM, CMP, ETH #### [facility] [address] [place] [address] Dr. Nehemiah Vargas Glucose [Mass/Vol] 128 mg/dL Critically high 74-106 [facility] Comment on above: Performed By: #### C MADM, CMP, ETH #### [facility] [address] [place] [address] Dr. Nehemiah Vargas Potassium [Moles/Vol] 4.4 mmol/L Normal 3.5-5.1 [facility] Comment on above: Performed By: #### C MADPeter CMP, ETH #### [facility] [address] [place] [address] Dr. Nehemiah Vargas Protein [Mass/Vol] 6.5 g/dL Normal 6.4-8.2 [facility] Comment on above: Performed By: #### C GENEVIEVE CMP, ETH #### [facility] [address] [place] [address] Dr. Nehemiah Vargas Sodium [Moles/Vol] 133 mmol/L Critically low 136-145 [facility] Comment on above: Performed By: #### C GENEVIEVE CMP, ETH #### [facility] [address] [place] [address] Dr. Nehemiah Vargas Urea nitrogen [Mass/Vol] 7.0 mg/dL Normal 7.0-18.0 [facility] Comment on above: Performed By: #### C GENEVIEVE CMP, ETH #### [facility] [address] [place] [address] Dr. Nehemiah Vargas Urea nitrogen/Creatinin e [Mass ratio] 9.0 mg/mg Normal [facility] Comment on above: Performed By: #### C SADIE VALLEJO, ETH #### [facility] [address] [place] [address] Dr. Nehemiah Vargas URINE MICROSCOPIC ONLYon BACTERIA NONE SEEN Normal NONE SEEN [facility] Comment on above: Performed By: #### C BC #### [facility] [address] [place] [address] Dr. Nehemiah Vargas Bacteria identified Cx Nom (U) NOT INDICATED Normal [facility] Comment on above: Performed By: #### C BC #### [facility] [address] [place] [address] Dr. Nehemiah Vargas CAST NONE SEEN Normal NONE SEEN [facility] Comment on above: Performed By: #### C BC #### [facility] [address] [place] [address] Dr. Nehemiah Vargas Crystals LM Nom (Urine sed) NONE SEEN Normal NONE SEEN [facility] Comment on above: Performed By: #### C BC #### [facility] [address] [place] [address] Dr. Nehemiah Vargas Epithelial cells LM Ql (Urine sed) NONE SEEN Normal NONE SEEN /RARE [facility] Comment on above: Performed By: #### C BC #### [facility] [address] [place] [address] Dr. Nehemiah Vargas MUCOUS TRACE Abnormal NONE SEEN [facility] Comment on above: Performed By: #### C BC #### [facility] [address] [place] [address] Dr. Nehemiah Vargas RBC NONE SEEN Abnormal 0-2 [facility] Comment on above: Performed By: #### C BC #### [facility] [address] [place] [address] Dr. Nehemiah Vargas WBC 0-2 Abnormal NONE SEEN [facility] Comment on above: Performed By: #### C BC #### [facility] [address] [place] [address] Dr. Nehemiah Vargas CBC AUTO DIFFon 01-08-2022 BASO # 0.0 103/ul Normal 0.0-0.1 [facility] Comment on above: Performed By: #### C BC #### [facility] [address] [place] [address] Dr. Nehemiah Vargas Basophils/100 WBC (Bld) 0.3 % Normal 0.2-2.0 [facility] Comment on above: Performed By: #### C BC #### [facility] [address] [place] [address] Dr. Nehemiah Vargas EO # 0.1 103/ul Normal 0.0-0.7 [facility] Comment on above: Performed By: #### C BC #### [facility] [address] [place] [address] Dr. Nehemiah Vargas Eosinophils/100 WBC (Bld) 1.3 % Normal 0.9-7.0 [facility] Comment on above: Performed By: #### C BC #### [facility] [address] [place] [address] Dr. Nehemiah Vargas Erythrocyte distribution width (RBC) [Ratio] 12.6 % Normal 11.0-15.0 [facility] Comment on above: Performed By: #### C BC #### [facility] [address] [place] [address] Dr. Nehemiah Vargas Hematocrit (Bld) [Volume fraction] 44.9 % Normal 42.0-54.0 [facility] Comment on above: Performed By: #### C BC #### [facility] [address] [place] [address] Dr. Nehemiah Vargas Hemoglobin (Bld) [Mass/Vol] 14.8 g/dL Normal 14.0-18.0 [facility] Comment on above: Performed By: #### C BC #### [facility] [address] [place] [address] Dr. Nehemiah Vargas IG # 0.01 10e3/ul Normal 0.00-0.03 [facility] Comment on above: Performed By: #### C BC #### [facility] [address] [place] [address] Dr. Nehemiah Vargas IG % 0.1 % Normal 0.0-0.5 [facility] Comment on above: Performed By: #### C BC #### [facility] [address] [place] [address] Dr. Nehemiah Vargas LYMPH # 1.7 103/ul Normal 1.2-3.8 [facility] Comment on above: Performed By: #### C BC #### [facility] [address] [place] [address] Dr. Nehemiah Vargas Lymphocytes/100 WBC (Bld) 25.0 % Normal 20.5-60.0 [facility] Comment on above: Performed By: #### C BC #### [facility] [address] [place] [address] Dr. Nehemiah Vargas MANUAL DIFF REQ NO Normal [facility] Comment on above: Performed By: #### C BC #### [facility] [address] [place] [address] Dr. Nehemiah Vargas MCH (RBC) [Entitic mass] 30.1 pg Normal 25.9-34.0 [facility] Comment on above: Performed By: #### C BC #### [facility] [address] [address] [address] Nehemiah Vargas MCHC (RBC) [Mass/Vol] 33.0 g/dL Normal 29.9-35.2 [facility] Comment on above: Performed By: #### C BC #### [facility] [address] [address] [address] Nehemiah Vargas MCV (RBC) [Entitic vol] 91.4 fL Normal 80.0-94.0 [facility] Comment on above: Performed By: #### C BC #### [facility] [address] [place] [address] Dr. Nehemiah Vargas MONO # 0.5 103/ul Normal 0.3-0.8 [facility] Comment on above: Performed By: #### C BC #### [facility] [address] [place] [address] Dr. Nehemiah Vargas Monocytes/100 WBC (Bld) 7.5 % Normal 1.7-12.0 [facility] Comment on above: Performed By: #### C BC #### [facility] [address] [place] [address] Dr. Nehemiah Vargas NEUT # 4.6 103/ul Normal 1.4-6.5 [facility] Comment on above: Performed By: #### C BC #### [facility] [address] [place] [address] Dr. Nehemiah Vargas Neutrophils/100 WBC (Bld) 65.8 % Normal 43.0-75.0 [facility] Comment on above: Performed By: #### C BC #### [facility] [address] [place] [address] Dr. Nehemiah Vargas Platelet mean volume (Bld) [Entitic vol] 9.7 fL Normal 9.5-13.5 [facility] Comment on above: Performed By: #### C BC #### [facility] [address] [place] [address] Dr. Nehemiah Vargas PLT 169 103/ul Normal 150-450 [facility] Comment on above: Performed By: #### C BC #### [facility] [address] [place] [address] Dr. Nehemiah Vargas RBC 4.91 106/ul Normal 4.70-6.10 [facility] Comment on above: Performed By: #### C BC #### [facility] [address] [place] [address] Dr. Nehemiah Vargas WBC 6.9 103/ul Normal 4.0-11.0 [facility] Comment on above: Performed By: #### C BC #### [facility] [address] [place] [address] Dr. Nehemiah Vargas PROF CHEM 8 (BAS METB)on Anion gap [Moles/Vol] 14.5 mmol/L Normal [facility] Comment on above: Performed By: #### C BC #### [facility] [address] [place] [address] Dr. Nehemiah Vargas Calcium [Mass/Vol] 8.9 mg/dL Normal 8.5-10.1 [facility] Comment on above: Performed By: #### C BC #### [facility] [address] [place] [address] Dr. Nehemiah Vargas Chloride [Moles/Vol] 98 mmol/L Normal 98-107 [facility] Comment on above: Performed By: #### C BC #### [facility] [address] [place] [address] Dr. Nehemiah Vargas CO2 [Moles/Vol] 24.4 mmol/L Normal 21.0-32.0 [facility] Comment on above: Performed By: #### C BC #### [facility] [address] [place] [address] Dr. Nehemiah Vargas Creatinine [Mass/Vol] 0.88 mg/dL Normal 0.70-1.30 [facility] Comment on above: Performed By: #### C BC #### [facility] [address] [place] [address] Dr. Nehemiah Vargas EGFR-AF MALDIVIAN >60 Normal >=60 [facility] Comment on above: Performed By: #### C BC #### [facility] [address] [place] [address] Dr. Nehemiah Vargas EGFR-NON AF MALDIVIAN >60 Normal >=60 [facility] Comment on above: Performed By: #### C BC #### [facility] [address] [address] [address] Nehemiah Vargas Glucose [Mass/Vol] 152 mg/dL Critically high 74-106 [facility] Comment on above: Performed By: #### C BC #### [facility] [address] [place] [address] Dr. Nehemiah Vargas Potassium [Moles/Vol] 3.9 mmol/L Normal 3.5-5.1 [facility] Comment on above: Performed By: #### C BC #### [facility] [address] [place] [address] Dr. Nehemiah Vargas Sodium [Moles/Vol] 133 mmol/L Critically low 136-145 [facility] Comment on above: Performed By: #### C BC #### [facility] [address] [place] [address] Dr. Nehemiah Vargas Urea nitrogen [Mass/Vol] 7.0 mg/dL Normal 7.0-18.0 [facility] Comment on above: Performed By: #### C BC #### [facility] [address] [place] [address] Dr. Nheemiah Vargas Urea nitrogen/Creatinin e [Mass ratio] 8.0 mg/mg Normal [facility] Comment on above: Performed By: #### C BC #### [facility] [address] [place] [address] Dr. Nehemiah Vargas CBC AUTO DIFFon 12-15-2021 BASO # 0.1 103/ul Normal 0.0-0.1 [facility] Comment on above: Performed By: #### C BC #### [facility] [address] [place] [address] Dr. Nehemiah Vargas Basophils/100 WBC (Bld) 0.5 % Normal 0.2-2.0 [facility] Comment on above: Performed By: #### C BC #### [facility] [address] [place] [address] Dr. Nehemiah Vargas EO # 0.2 103/ul Normal 0.0-0.7 [facility] Comment on above: Performed By: #### C BC #### [facility] [address] [place] [address] Dr. Nehemiah Vargas Eosinophils/100 WBC (Bld) 1.5 % Normal 0.9-7.0 [facility] Comment on above: Performed By: #### C BC #### [facility] [address] [place] [address] Dr. Nehemiah Vargas Erythrocyte distribution width (RBC) [Ratio] 12.9 % Normal 11.0-15.0 [facility] Comment on above: Performed By: #### C BC #### [facility] [address] [place] [address] Dr. Nehemiah Vargas Hematocrit (Bld) [Volume fraction] 47.2 % Normal 42.0-54.0 [facility] Comment on above: Performed By: #### C BC #### [facility] [address] [place] [address] Dr. Nehemiah Vargas Hemoglobin (Bld) [Mass/Vol] 15.6 g/dL Normal 14.0-18.0 [facility] Comment on above: Performed By: #### C BC #### [facility] [address] [place] [address] Dr. Nehemiah Vargas IG # 0.02 10e3/ul Normal 0.00-0.03 [facility] Comment on above: Performed By: #### C BC #### [facility] [address] [place] [address] Dr. Nehemiah Vargas IG % 0.2 % Normal 0.0-0.5 [facility] Comment on above: Performed By: #### C BC #### [facility] [address] [place] [address] Dr. Nehemiah Vargas LYMPH # 1.5 103/ul Normal 1.2-3.8 [facility] Comment on above: Performed By: #### C BC #### [facility] [address] [place] [address] Dr. Nehemiah Vargas Lymphocytes/100 WBC (Bld) 13.4 % Critically low 20.5-60.0 [facility] Comment on above: Performed By: #### C BC #### [facility] [address] [place] [address] Dr. Nehemiah Vargas MANUAL DIFF REQ NO Normal [facility] Comment on above: Performed By: #### C BC #### [facility] [address] [place] [address] Dr. Nehemiah Vargas MCH (RBC) [Entitic mass] 30.2 pg Normal 25.9-34.0 [facility] Comment on above: Performed By: #### C BC #### [facility] [address] [place] [address] Dr. Nehemiah Vargas MCHC (RBC) [Mass/Vol] 33.1 g/dL Normal 29.9-35.2 [facility] Comment on above: Performed By: #### C BC #### [facility] [address] [place] [address] Dr. Nehemiah Vargas MCV (RBC) [Entitic vol] 91.3 fL Normal 80.0-94.0 [facility] Comment on above: Performed By: #### C BC #### [facility] [address] [place] [address] Dr. Nehemiah Vargas MONO # 0.8 103/ul Normal 0.3-0.8 [facility] Comment on above: Performed By: #### C BC #### [facility] [address] [place] [address] Dr. Nehemiah Vargas Monocytes/100 WBC (Bld) 7.2 % Normal 1.7-12.0 [facility] Comment on above: Performed By: #### C BC #### [facility] [address] [place] [address] Dr. Nehemiah Vargas NEUT # 8.4 103/ul Critically high 1.4-6.5 [facility] Comment on above: Performed By: #### C BC #### [facility] [address] [place] [address] Dr. Nehemiah Vargas Neutrophils/100 WBC (Bld) 77.2 % Critically high 43.0-75.0 [facility] Comment on above: Performed By: #### C BC #### [facility] [address] [place] [address] Dr. Nehemiah Vargas Platelet mean volume (Bld) [Entitic vol] 9.3 fL Critically low 9.5-13.5 [facility] Comment on above: Performed By: #### C BC #### [facility] [address] [place] [address] Dr. Nehemiah Vargas PLT 171 103/ul Normal 150-450 [facility] Comment on above: Performed By: #### C BC #### [facility] [address] [place] [address] Dr. Nehemiah Vargas RBC 5.17 106/ul Normal 4.70-6.10 [facility] Comment on above: Performed By: #### C BC #### [facility] [address] [place] [address] Dr. Nehemiah Vargas WBC 10.9 103/ul Normal 4.0-11.0 [facility] Comment on above: Performed By: #### C BC #### [facility] [address] [place] [address] Dr. Nehemiah Vargas PROF 14(COMP METB)on 022 Albumin [Mass/Vol] 3.6 g/dL Normal 3.4-5.0 [facility] Comment on above: Performed By: #### C BC #### [facility] [address] [place] [address] Dr. Nehemiah Vargas Albumin/Globulin [Mass ratio] 1.2 {ratio} Normal [facility] Comment on above: Performed By: #### C BC #### [facility] [address] [place] [address] Dr. Nehemiah Vargas ALP [Catalytic activity/Vol] 105 U/L Normal 46-116 [facility] Comment on above: Performed By: #### C BC #### [facility] [address] [place] [address] Dr. Nehemiah Vargas ALT [Catalytic activity/Vol] 21 U/L Normal 16-63 [facility] Comment on above: Performed By: #### C BC #### [facility] [address] [place] [address] Dr. Nehemiah Vargas Anion gap [Moles/Vol] 11.4 mmol/L Normal [facility] Comment on above: Performed By: #### C BC #### [facility] [address] [place] [address] Dr. Nehemiah Vargas AST [Catalytic activity/Vol] 18 U/L Normal 15-37 [facility] Comment on above: Performed By: #### C BC #### [facility] [address] [place] [address] Dr. Nehemiah Vargas Bilirubin [Mass/Vol] 0.4 mg/dL Normal 0.2-1.0 [facility] Comment on above: Performed By: #### C BC #### [facility] [address] [place] [address] Dr. Nehemiah Vargas Calcium [Mass/Vol] 8.2 mg/dL Critically low 8.5-10.1 [facility] Comment on above: Performed By: #### C BC #### [facility] [address] [place] [address] Dr. Nehemiah Vargas Chloride [Moles/Vol] 96 mmol/L Critically low 98-107 [facility] Comment on above: Performed By: #### C BC #### [facility] [address] [place] [address] Dr. Nehemiah Vargas CO2 [Moles/Vol] 28.5 mmol/L Normal 21.0-32.0 [facility] Comment on above: Performed By: #### C BC #### [facility] [address] [place] [address] Dr. Nehemiah Vargas Creatinine [Mass/Vol] 0.88 mg/dL Normal 0.70-1.30 [facility] Comment on above: Performed By: #### C BC #### [facility] [address] [place] [address] Dr. Nehemiah Vargas EGFR-AF MALDIVIAN >60 Normal >=60 [facility] Comment on above: Performed By: #### C BC #### [facility] [address] [address] [address] Nehemiah Vargas EGFR-NON AF MALDIVIAN >60 Normal >=60 [facility] Comment on above: Performed By: #### C BC #### [facility] [address] [address] [address] Nehemiah Vargas Globulin (S) [Mass/Vol] 3.1 g/dL Normal [facility] Comment on above: Performed By: #### C BC #### [facility] [address] [address] [address] Nehemiah Vargas Glucose [Mass/Vol] 121 mg/dL Critically high 74-106 [facility] Comment on above: Performed By: #### C BC #### [facility] [address] [address] [address] Nehemiah Vargas Potassium [Moles/Vol] 3.9 mmol/L Normal 3.5-5.1 [facility] Comment on above: Performed By: #### C BC #### [facility] [address] [address] [address] Nehemiah Vargas Protein [Mass/Vol] 6.7 g/dL Normal 6.1-8.2 [facility] Comment on above: Performed By: #### C BC #### [facility] [address] [place] [address] Dr. Nehemiah Vargas Sodium [Moles/Vol] 132 mmol/L Critically low 136-145 [facility] Comment on above: Performed By: #### C BC #### [facility] [address] [address] Dr. Nehemiah Vargas Urea nitrogen [Mass/Vol] 8.0 mg/dL Normal 7.0-18.0 [facility] Comment on above: Performed By: #### C BC #### [facility] [address] [address] [address] Nehemiah Vargas Urea nitrogen/Creatinin e [Mass ratio] 9.1 mg/mg Normal [facility] Comment on above: Performed By: #### C BC #### [facility] [address] [address] [address] Nehemiah Vargas Vital Signs Date Time Vital Sign Value Performing Clinician Facility 06-20-2023 10:10-0400 Body height 190.5 cm MD Shaikh Schuster Work Phone: [facility] 06-20-2023 10:10-0400 Body weight 68.03 kg MD Shaikh Schuster Work Phone: [facility] 12-01-2021 11:20-0400 Body height 185.42 cm Js May Other [employer] Other 12-01-2021 11:20-0400 Body mass index (BMI) [Ratio] 21.77 kg/m2 Js May Other [employer] Other 12-01-2021 11:20-0400 Body weight 74.84 kg Js May Other [employer] Other 10-09-2021 08:25-0500 Body height 190.5 cm MD Shaikh Schuster Work Phone: [facility] 10-09-2021 08:25-0500 Body weight 72.57 kg MD Shaikh Schuster Work Phone: [facility] 06-02-2021 12:20-0400 Body height 185.42 cm Js May Other [facility] Other 06-02-2021 12:20-0400 Body mass index (BMI) [Ratio] 21.77 kg/m2 Js May Other [employer] Other 06-02-2021 12:20-0400 Body weight 74.84 kg Js May Other [employer] Other 06-02-2021 12:20-0400 Diastolic blood pressure 82 mm[Hg] Js May Other [employer] Other 06-02-2021 12:20-0400 Systolic blood pressure 138 mm[Hg] Js May Other [place] [email or web address] Other Encounters Encounter Date Encounter Type Care Provider Facility Start: 06-20-2023 End: 06-20-2023 ambulatory Obey Lowe Facility:[facility] Start: 06-20-2023 End: 06-20-2023 ambulatory MD Shaikh Schuster Work Phone: [facility] Work Phone: Start: 06-20-2023 End: 06-20-2023 Patient encounter procedure MD Shaikh Schuster Work Phone: [facility] [address] [place] Work Phone: Start: 01-10-2023 End: 01-10-2023 ambulatory Obey Lopez Facility:[facility] Start: 11-29-2022 End: 11-29-2022 ambulatory Js Antoinette May Facility:[facility] Start: 11-29-2022 End: 11-29-2022 ambulatory MD Shaikh Schuster Work Phone: [facility] Work Phone: Start: 11-29-2022 End: 11-29-2022 Patient encounter procedure MD Shaikh Schuster Work Phone: [facility]XRay [address] [place] Work Phone: Start: 09-16-2022 End: 09-17-2022 ambulatory [...] encounter procedure MD Shaikh Schuster Work Phone: [facility] [address] Start: 12-15-2021 End: 12-16-[address] IZZY VERGARA Facility:[facility] Start: 12-01-2021 End: 12-01-2021 ambulatory Js May Other [facility] [employer] Other Start: 12-01-2021 Office outpatient visit 25 minutes Js May [facility] Start: 11-19-2021 End: 11-19-2021 Patient encounter procedure MD Shaikh Schuster Work Phone: [facility]XRay [facility] Start: 10-15-2021 End: 10-16-[address] IZZY VERGARA Facility:[facility] Start: 10-09-2021 End: 10-09-2021 Patient encounter procedure MD Shaikh Schuster Work Phone: [facility] Start: 06-02-2021 Office outpatient visit 15 minutes Js May [facility] Start: 06-02-2021 Telephone encounter Js May [facility] Procedures Date Procedure Procedure Detail [...] Phone: Payers Date Payer Category Payer Unknown [id number] 2.16.84 [id number] 1980 Unknown [id number] 2.16.84 [id number] 1979 Unknown [id number] 2.16.84 [id number] 1979 Unknown [id number] 2.16.84 [id number] 1979 Unknown [id number] 2.16.84 [id number] 1979 Unknown [id number] 2.16.84 [id number] 1979 Unknown [id number] 2.16.84 [id number] 1979 Unknown [id number] 2.16.84 [id number] 1979 Unknown [id number] 2.16.84 [id number] 1979 Unknown [id number] 2.16.84 [id number] 1959 Unknown [id number] Medicaid [employer] [id number] Self-pay Self Pay [id number] Social History Date Type Detail Facility Start: 12-01-2020 Tobacco smoking status NHIS Ex-smoker (finding) [facility] Start: 1980 Sex Assigned At Male F [facility] Sex Assigned At Sex Assigned At [facility] [employer] Other Medical Equipment Procedure Code Equipment Code Equipment Origin al Text Equipment Identifier Dates Discectomy, lumbar ADHERUS DURAL SEALANT FDA Start: 11-09-2017 Discectomy, lumbar ADHERUS DURAL SEALANT FDA Start: 11-09-2017 Discectomy, lumbar ADHERUS DURAL SEALANT FDA Start: 11-09-2017 Spinal fusion graft kit [id number] FDA Start: 12-01-2020 Bone-screw internal spinal fixation system, non-sterile [id number] FDA Start: 12-01-2020 Bone-screw internal spinal fixation system, non-sterile [id number] FDA Start: 12-01-2020 Polymeric spinal fusion cage, non-sterile [id number] FDA Start: 12-01-2020 Bone-screw internal spinal fixation system, non-sterile [id number] FDA Start: 12-01-2020 Evaluation note 12-01-2021 Note [...] the active MS that this patient has. [employer] Other Evaluation note 06-02-2021 Note Date & [...] M51.36) May, Multiple sclerosis (ICD-10 - G35) [employer] Other Evaluation note Note Date & Type Note Facility Evaluation note No assessment information [facility] Work Phone: Evaluation note Note Date & Type Note Facility Evaluation note No Information [employer] Other History general Narrative - Reported Note Date & Type Note Facility History general Narrative - Reported Type Medical History multiple sclerosis Medical History Patient was born with one kidney Medical History degenerative disc disease Medical History anxiety Medical History depression Surgical History lumbar laminectomy Surgical History Chest tube Surgical History nephrectomy Hospitalization History See Above [employer] Other History general Narrative - Reported Note [...] Lumbar fusion-Doctor May Hospitalization History See Above [employer] Other Chief Complaint and Reason for Visit [...] DATE CREATED AUTHOR 'S ORGANIZ ATION 06/21/2023 [facility] FOR RECORDS PERTAINING TO PATIENTS WHO [...] BE BASED ON THE PRIMARY CLINICAL RECORDS. [facility], [facility]. provides no warranty or guarantee of the accuracy or completeness of information in this document.
[2023-11-04 06:09] LABS: HBsAg Screen Negative (Negative); Hep B Core Ab, Tot Negative (Negative)
== END 2023-11-03 13:32 | disposition home or self-care (01) ==
LOC: LAB 13:32
PROVIDERS: PCP Internal Medicine; Visit Provider Psychiatry & Neurology Neurology
DX: G35 Multiple sclerosis (principal)
CPT/HCPCS: 36415; 86704; 87340; 87798

== ENCOUNTER 2023-12-28 01:12 | Emergency (ER) | payer OTHER, SELFPAY ==
[2023-12-28 01:17] VITALS: BP 120/84; PULSE 102; TEMP 37.4; O2SAT 98; BMI 20.6
--- OUTSIDE RECORDS SUMMARY | 2023-12-28 01:25 | XMS_ITS ---
Author Name Auto Generated Organization [facility] Care Team Providers Care Marketing Services Rep Name Role Phone LIUDMILA MEJIA Attending Unavailable Landen, Primary Care Unavailable Js Lara Attending Unavailable Js Lara Admitting Unavailable Liudmila Mejia Attending Unavailable [place], Liudmila Admitting Unavailable Fawmsharika, [facility] Primary Care Unavailable LowLiudmila nam Attending Unavailable LowLiudmila nam Admitting Unavailable [place]ms[place], [facility] Primary Care Unavailable PROBLEMS DATE TYPE CONDITION / CODE ATTENDING STATUS KM RCE 12/12/2023 Unknown Other interverte bral disc degeneration, lumbar region / M51.36(ICD-10) Js Lara Active [facility] PROCEDURES No Procedure Records Found RESULTS XR LUMBAR SPINE AP/LAT/FLX/EXT Observed: 12/12/2023 8:24 PM Status: COMPLETED Source: REPOSITORY [facility] Main [address] [address] XRay Report Signed Patient: Alexis Negrete II MR#: [id number] : 1980 Acct:[id number] Age/Sex: 43 / M ADM Date: 12/12/23 Loc: XD [facility]: Js Lara MD Copies to: Js Lara MD Ordering Provider: Js Lara MD Date of Service: 12/12/23 XR/XR lumbar spine AP/LAT/FLX/EXT: M51.36 - Other intervertebral disc degeneration, lumbar r... XR lumbar spine AP/LAT/FLX/EXT 12/12/2023 2:49 PM SIGNS AND SYMPTOMS: Follow-up recent lumbar fusion PROTOCOLS: Frontal, lateral, and flexion-extension views of the lumbar spine COMPARISON: 11/29/2022 FINDINGS: Posterior fusion hardware is noted from L4 through S1. There is fracture of the L5 transpedicular screw is similar to the prior exam. There is mild disc height loss at L3-L4 similar to the prior exam. Atherosclerotic changes are noted in the abdominal aorta. XR/XR lumbar spine AP/LAT/FLX/EXT IMPRESSION: Posterior fusion hardware is noted from L4 through S1. There is fracture of the L5 transpedicular screw is similar to the prior exam. Impression dictated by: Brannon Richardson M.D.12/12/2023 8:25 PM Dictation Location: [place] [address] Transcribed By: [facility] 12/12/232024 Dictated By: Brannon Richardson II, MD 12/12/232023 Signed By: <Electronically signed by Brannon Richardson II, MD in OV> 12/12/232024 MR CERVICAL SPINE WO/W CON Observed: 06/20/2023 1:38 PM Status: COMPLETED Source: REPOSITORY [facility] [place] [address] MRI Report Signed Patient: Alexis Negrete II MR#: [id number] : 1980 Acct:[id number] Age/Sex: 42 / M ADM Date: 06/20/23 Loc: Room: Type: [facility] Attending Dr: Liudmila Mejia PA-C Copies to: Liudmila Mejia PA-C Ordering Provider: Liudmila Mejia PA-C Date of Service: 06/20/23 MR/MR cervical [...] right neural foraminal narrowing. Impression dictated by: Brannon Richardson M.D.06/20/2023 1:44 PM Dictation Location: [place] [address] Transcribed By: [facility] 06/20/23 1344 Dictated By: Brannon Richardson II, MD 06/20/23 1338 Signed By: <Electronically signed by Brannon Richardson II, MD in OV> 06/20/23 1344 MR THORACIC SPINE WO/W CON Observed: 06/20/2023 1:31 PM Status: COMPLETED Source: REPOSITORY [facility] [place] [address] MRI Report Signed Patient: Alexis Negrete II MR#: [id number] : 1980 Acct:[id number] Age/Sex: 42 / M ADM Date: 06/20/23 Loc: Room: Type: [facility] Attending Dr: Liudmila Mejia PA-C Copies to: Liudmila Mejia PA-C Ordering Provider: Liudmila Mejia PA-C Date of Service: 06/20/23 MR/MR thoracic [...] and intervertebral disc spaces. There is a benign- appearing hemangioma on the right at T3. The [...] changes noted, as above. Impression dictated by: Brannon Richardson M.D.06/20/2023 1:37 PM Dictation Location: [place] [address] Transcribed By: [facility] 06/20/23 1337 Dictated By: Brannon Richardson II, MD 06/20/23 1331 Signed By: <Electronically signed by Brannon Richardson II, MD in OV> 06/20/23 1337 MR HEAD/BRAIN WO/W CON Observed: 023 8:48 AM Status: COMPLETED Source: REPOSITORY [facility] [place] [address] MRI Report Signed Patient: Alexis Negrete II MR#: [id number] : 1980 Acct:[id number] Age/Sex: 42 / M ADM Date: 01/10/23 Loc: MR Room: Type: [facility] Attending Dr: Liudmila Mejia PA-C Copies to: Liudmila Mejia PA-C Ordering Provider: Liudmila Mejia PA-C Date of Service: 01/10/23 MR/MR head/brain [...] to suggest active demyelination. Impression dictated by: Brannon Richardson M.D.01/11/2023 8:56 AM Dictation Location: [place] [address] Transcribed By: [facility] 01/11/23 0856 Dictated By: Brannon Richardson II, MD 01/11/23 0848 Signed By: <Electronically signed by Brannon Richardson II, MD in OV> 01/11/23 0856 ALLERGIES No Allergies Records Found ENCOUNTERS ADMIT/DISCHARGE ACCOUNT NUMBER ADMITTING ENCOUNTER CLASS LOCATION SOURCE 12/12/2023/12/12/19 24 [id number] [facility] 12/07/2023/12/07/19 24 [id number] Ambulatory Building:[facility] 06/20/2023/06/20/20 23 [id number] Liudmila Mejia [facility] 01/10/2023/01/11/20 23 [id number] Liudmila Mejia [facility] PAYERS ENCOUNTER GUARANTOR PAYER SUBSCRIBER SOURCE 12/07/2023 ALEXIS ELLIS: [place]IN [id number]: () Primary Insurance:[facility] Number: [id number] tive Date:2022-04-22 ALEXIS ELLIS: [id number] [place] [id number] [facility] EPIC
--- NOTE | 2023-12-28 01:45 | XR_ITS ---
The [address] [address] Patient Name: TAVIA CANALES MRN: [id number] date: 1980 Sex: M Assigned Patient Location: ER Current Patient Location: ER Accession/Order Number: [id number] Exam Date: 12/28/2023 02:00 Report Date: 12/28/2023 02:52 At the request of: JOSE FRANCISCO CORREIA Procedure: XR shoulder LT min 2V XR shoulder LT min 2V 12/28/2023 2:00 AM EDT CLINICAL INDICATION: Fall COMPARISON: None. TECHNIQUE: 3 views of the left shoulder. FINDINGS: There is a comminuted mildly displaced fracture of the humeral neck. No associated glenohumeral location. Associated soft tissue edema. XR/XR shoulder LT min 2V IMPRESSION: Comminuted mildly displaced fracture of the humeral neck. Electronically authenticated by: TATUM SINGH Date: 12/28/2023 02:52
--- NOTE | 2023-12-28 01:47 | ED_ITS ---
HPI HPI - Extremity Injury (Upper) General Chief Complaint: Extremity Injury, Upper Stated Complaint: FALL Time Seen by Provider: 12/28/23 01:20 Source: patient Mode of arrival: ambulance Limitations: physical limitation History of Present Illness HPI narrative: This 43-year-old male presents for evaluation of left shoulder pain. He is right hand dominant. The patient states he has MS and took his nightly medications. He then had to get up to use the bathroom and fell onto his left side. He states that the floors were slippery and he was only wearing socks. He states he fell onto his left shoulder. He has pain in the anterior aspect of the left shoulder and decreased range of motion. He denies striking his head. He denies any neck or back pain. He denies any alcohol use. He states he gets very sleepy after taking his nighttime medications. He has no lower extremity pain or swelling. He lives at home with his grandmother, his partner and 2 children. He denies any chest pain or shortness of breath. He denies any dizziness prior to his fall. Related Data Allergies Allergy/AdvReac Type Severity Reaction Status Date / Time Penicillins Allergy Unknown Verified 12/28/23 01:20 Opioid HPI Opioid Management Most Recent Pain and Opioid Data: No Data to Display Review of Systems ROS Status of ROS 10 or more systems reviewed and unremark able except as noted in history and below Exam Narrative Exam Narrative: Nurses note and vital signs reviewed and patient is not hypoxic.He is mildly tachycardic with a pulse of 102 General: The patient appears well and in no apparent distress. He is awake, alert, oriented, he pulls himself to a sitting position without difficulty, no respiratory distress Skin: Warm, dry, no pallor noted. There is no rash noted. Head: Normocephalic, atraumatic Eye: Normal conjunctiva, no drainage, EOMI. PERRL. Vision is grossly intact Ears, Nose, Mouth, and Throat: oral mucosa is moist. Nares patent. Neck: Supple, no midline bony vertebral tenderness or step-off Cardiovascular: Regular Rate and [id number], pulses are brisk and equal bilaterally Respiratory: Patient is in no distress, no accessory muscle use, lungs are clear to auscultation, no wheezing, rales or rhonchi Back: non-tender, no CVA tenderness bilaterally to percussion. GI: Normal bowel sounds, no tenderness to palpation, no masses appreciated. No rebound, guarding, or rigidity noted. Stable pelvic rock. Musculoskeletal: Tenderness without bony deformity to the left anterior shoulder area, no humerus, elbow, wrist or hand tenderness, Funeral Pre Need Consultant strength is intact. Sensation is intact, no appreciable nerve injury. No lower extremity tenderness Neurological: A&O x4, normal speech, no focal deficits Psychiatric: Cooperative Constitutional Vital Signs, click to edit/add: Last Vital Signs Temp 99.3 F 12/28/23 01:17 Pulse 80 12/28/23 04:45 Resp 16 12/28/23 04:45 BP 120/84 12/28/23 01:17 Pulse Ox 96 12/28/23 04:45 O2 Del Method Room Air 12/28/23 01:17 Course Vital Signs Vital signs: Vital Signs Temperature 99.3 F 12/28/23 01:17 Pulse Rate 102 H 12/28/23 01:17 Respiratory Rate 18 12/28/23 01:17 Blood Pressure 120/84 12/28/23 01:17 Pulse Oximetry 98 12/28/23 01:17 Oxygen Delivery Method Room Air 12/28/23 01:17 Temperature 99.3 F 12/28/23 01:17 Pulse Rate 80 12/28/23 04:45 Respiratory Rate 16 12/28/23 04:45 Blood Pressure 120/84 12/28/23 01:17 Pulse Oximetry 96 12/28/23 04:45 Oxygen Delivery Method Room Air 12/28/23 01:17 MDM - Extremity Injury (Upper) MDM Narrative Medical decision making narrative: This 43-year-old male with a history of multiple sclerosis is brought to the emergency department by EMS for evaluation of left upper extremity pain after falling at home on hardwood floors that were slippery. He denies striking his head. He has no neck or back pain. He has tenderness without visible deformity to the left shoulder area. Pulses are brisk and equal. Strength is intact. There is no wrist or forearm or elbow tenderness. X-ray of the extremity shows a co mminuted fracture of the proximal humerus. After arriving to the emergency Department his sleeping medications kicked in and he fell asleep and has been resting comfortably since getting his x-ray. When he awakens we will discuss these findings with him and arrange follow up with outpatient orthopedics. He will be discharged home in a sling. [place]AR[place] was reviewed and shows monthly Rx for 800 mg gabapentin but he is otherwise not prescribed narcotics. Upon awakening, he was made aware of his diagnosis and medicated with a dose of zofran and percocet. He was given 2 percocet for home use and a Rx for percocet to use as needed for pain. Case was discussed with Dr Gutierrez, orthopedics, and he will see him as an outpatient. Medical Records Medical records narrative: [place] [address] XRay Report Signed Patient: TAVIA CANALES II MR#: [id number] : 1980 Acct:[id number] Age/Sex: 43 / M ADM Date: 12/28/23 Loc: ER Attending Dr: Ordering Physician: Serena Del Real Date of Service: 12/28/23 Procedure(s): XR shoulder LT min 2V Accession Number(s): [id number] cc: Shaikh Deanne Schuster; Serena Marker~ The [place] [address] Patient Name: TAVIA CANALES MRN: [id number] date: 1980 Sex: M Assigned Patient Location: ER Current Patient Location: ER Accession/Order Number: [id number] Exam Date: 12/28/2023 02:00 Report Date: 12/28/2023 02:52 At the request of: SERENA MARKER Procedure: XR shoulder LT min 2V XR shoulder LT min 2V 12/28/2023 2:00 AM EDT CLINICAL INDICATION: Fall COMPARISON: None. TECHNIQUE: 3 views of the left shoulder. FINDINGS: There is a comminuted mildly displaced fracture of the humeral neck. No associated glenohumeral location. Associated soft tissue edema. XR/XR shoulder LT min 2V IMPRESSION: Comminuted mildly displaced fracture of the humeral neck. Discharge Plan Discharge Stand Alone Forms: Portal Instructions Chief Complaint: Extremity Injury, Upper Clinical Impression: Fall from standing, Fracture of humerus Patient Disposition: Home, Self-Care Time of Disposition Decision: 06:25 Condition: Good Print Language: Kiswahili Instructions: Arm Fracture in Adults (DC), How to Use a Sling (ED) Referrals: Norman Gutierrez MD [Physician] - As soon as possible (Proximal humerus fx) Shaikh Schuster MD [Primary Care Provider] - 1 week
[2023-12-28 04:45] VITALS: PULSE 80; O2SAT 96
[2023-12-28] MEDS: OXYCODONE HCL/ACETAMINOPHEN 5MG/325MG 1 TAB PO (06:38)
[2023-12-28] MEDS: ONDANSETRON 4 MG RAPDIS TABLET SL (06:38)
[2023-12-28] MEDS: OXYCODONE HCL/ACETAMINOPHEN 5MG/325MG 2 TAB PO (06:38)
[2023-12-28 06:50] VITALS: BP 112/75; PULSE 88; O2SAT 97
== END 2023-12-28 06:50 | disposition home or self-care (01) ==
PROVIDERS: Emergency Provider Emergency Medicine; PCP Internal Medicine
DX: S42.212A Unspecified displaced fracture of surgical neck of left humerus, initial encounter for closed fracture (principal); G35 Multiple sclerosis; W01.10XA Fall on same level from slipping, tripping and stumbling with subsequent striking against unspecified object, initial encounter
CPT/HCPCS: 73030; 99283

== ENCOUNTER 2024-01-09 12:23 | Outpatient (OUT) | payer OTHER, SELFPAY ==
--- NOTE | 2024-01-09 | XR_ITS ---
The [address] [address] Patient Name: TAVIA CANALES MRN: [id number] date: 1980 Sex: M Assigned Patient Location: Current Patient Location: Accession/Order Number: [id number] Exam Date: 01/09/2024 12:23 Report Date: 01/10/2024 07:54 At the request of: IZZY KESSLER Procedure: XR shoulder LT min 2V PROCEDURE: XR shoulder LT min 2V HISTORY: LEFT SHOULDER PAIN COMPARISON: XR shoulder left 12/28/2023 FINDINGS: BONES:Comminuted fracture of the surgical neck of the left humerus. Intact humeral head and glenohumeral joint. Curvilinear lucency extending across the proximal humeral diaphysis suspected to be summation artifact from overlying muscle/fat plane. SOFT TISSUES:No visible soft tissue swelling. EFFUSION:None visible. OTHER: Negative. XR/XR shoulder LT min 2V IMPRESSION: 1. Comminuted fracture of left humerus surgical neck without significant displacement. Grossly stable compared to prior study. Electronically authenticated by: IZZY CHAMPAGNE Date: 01/10/2024 07:54
--- OUTSIDE RECORDS SUMMARY | 2024-01-09 12:45 | XMS_ITS | CCD ---
Author Organization [facility] Care Team Providers Care Bill Sorter Name Role Phone MD Tracey Schuster Primary Care Provider [phone] WALDO Lopez Attending Provider MD Js May Attending Provider WALDO Camarena Attending Provider [phone] Js May Unavailable OBEY LOPEZ Attending Unavailable OBEY LOPEZ Consulting Unavailable FAWWAD, WEBB H Primary Care Unavailable OBEY LOPEZ Admitting Unavailable BENEDICT, DR MAGANA Attending Unavailable BENEDICT, DR MAGANA Admitting Unavailable FAWWAD, WEBB H Primary Care Unavailable MARIA ALEJANDRA FRANCOIS Admitting Unavailable ALESSANDRO, MARIA ALEJANDRA Attending Unavailable ALESSANDRO, MARIA ALEJANDRA Consulting Unavailable FAWWAD, WEBB H Primary Care Unavailable SHAHNAZ SALVADOR Consulting Unavailable FAWWAD, WEBB H Primary Care Unavailable SALVADOR CHRISTIE Admitting Unavailable SALVADOR CHRISTIE Attending Unavailable ZIODESSA, DR IZZY Giron Consulting Unavailable PAY, DR KENYON Admitting Unavailable PAY, DR KENYON Attending Unavailable FAWWAD, WEBB H Primary Care Unavailable PAY, DR KENYON Consulting Unavailable FAWWAD, WEBB H Primary Care Unavailable SHAHNAZ, SALVADOR Consulting Unavailable SALVADOR CHRISTIE Admitting Unavailable SALVADOR CHRISTIE Attending Unavailable MISC, DR SAVAGE Consulting Unavailable REQUEST, DR DIAMOND LISTED Primary Care Unavaila ble MISC, DR SAVAGE Admitting Unavailable MISC, DR SAVAGE Attending Unavailable BENEDICT, DR MAGANA Admitting Unavailable BENEDICT, DR MAGANA Attending Unavailable VANDA CAMARENA Consulting Unavailable FAWWAD, WEBB H Primary Care Unavailable FAWWAD, WEBB H Primary Care Unavailable FAWWAD, WEBB H Consulting Unavailable CARL, WEBB H Admitting Unavailable CARL, WEBB H Attending Unavailable JAYSON MUNOZMAD Consulting Unavailable ALEXANDER, AHMAD Admitting Unavailable FREDDY MUNOZD Attending Unavailable SHAIKH Andrea SCHUSTER Primary Care Unavailable MD Tracey Schuster Primary Care Provider MD Js May Attending Provider [phone] MD Tracey Schuster Primary Care Provider WALDO Lopez Attending Provider OBEY LOPEZ Attending Unavailable MD Tracey Schuster Primary Care Provider WALDO Lopez Attending Provider WALDO Lopez Referring Provider MD Js May Attending Provider Obey Lopez Admitting Unavailable Obey Lopez Attending Unavailable Shaikh Schuster [facility] Care Unavailable Js May Admitting Unavailable Js May Attending Unavailable Jagdish Schusterikh [facility] Care Unavailable Obey Lopez Attending Unavailable Shaikh Schuster [facility] Unavailable Obey Lopez Admitting Unavailable Allergies Allergy Classification Reported Allergen(s) Allergy Type Date of Onset Reaction(s) Facility (5 sources) NSAIDs Propensity to adverse reactions 04-16-20 20 Contraindicated R/T 1 kidney [facility] (6 sources) Penicillins; Translations: [Penicillins] Propensity to adverse reactions 04-06-20 15 Vomiting, Vomiting, N/V [facility] (5 sources) penicillAMINE Drug Allergy 12-01-19 23 Unknown, Unknown Reaction [facility] (5 sources) Anti-Inflammator y Enzyme Drug allergy 12-01-19 23 Unknown, Unknown Reaction [facility] (1 source) Penicillin Drug Allergy N/V [employer] Other Medications Current Medications Medication Drug Class(es) Dates Sig (Normalized) Sig (Original) cyclobenzaprine hydrochloride 10 mg oral tablet (15 sources) Muscle Relaxant Start: 12-03-2020 take 10 [...] DULoxetine 60 mg delayed release oral capsule (13 sources) Serotonin and Norepinephrine Reuptake Inhibitor Start: 10-04-2017 take 30 mg by mouth at bedtime Duloxetine Active 30 MG PO Bedtime October 04, 2017 1:00am Start: 10-04-2017 take 60 mg by mouth once daily in the morning Duloxetine Active 60 MG PO Every morning October 04, 2017 1:00am gabapentin 600 mg oral tablet (18 sources) Anti-epileptic Agent Start: 11-25-2020 take 700 [...] succinate 25 mg extended release oral tablet (8 sources) beta-Adrenergic Milka Start: 04-08-2020 take 25 mg by mouth once daily Metoprolol Succinate Active 25 MG PO Daily April 08, 2020 12:00am 10 ml ocrelizumab 30 mg/ml injection (1 source) Start: 12-13-2023 take 30 mg intravenously every other week Ocrelizumab (Ocrevus) 30 mg/mL solution Active 300 MG IV EVERY 2 WEEKS December 13, 2023 12:00am OXcarbazepine 300 mg oral tablet (8 sources) Anti-epileptic Agent Start: 04-08-2020 take 1 tablet by mouth twice daily Oxcarbazepine (Trileptal) 300 mg Tablet Active 300 MG PO Twice daily April 08, 2020 12:00am oxyCODONE hydrochloride 5 mg oral tablet (20 sources) Opioid Agonist Start: 02-19-2021 take 1 tablet by mouth every twenty-four hours oxyCODONE HCl 5 MG 1 tablet as needed Orally once a day for 7 days Feb, Active Start: 12-03-2020 End: 12-13-2023 take 5-10 mg by mouth every six hours Oxycodone Discontinued 5 - 10 MG PO Q6H 60 8 December 03, 2020 December 13, 2023 10:23am Start: 04-16-2020 End: 11-25-2020 take 5-10 mg [...] 09, 2017 April 08, 2020 10:57am Prednisone (20 sources) Start: 12-03-2020 Prednisone Act maciej 1 dose pk PO per package directions December 03, 2020 12:12pm take 4 tabs for 3 days then take 3 tabs for 3 days then take 2 tabs for 3 days then take 1 tab for 3 days Start: 12-03-2020 End: 12-13-2023 Prednisone Discontinued 1 do se pk PO per package directions December 03, 2020 12:00am December 13, 2023 10:23am take 4 tabs for 3 days then [...] or milk QUEtiapine 300 mg oral tablet (13 sources) Atypical Antipsychotic Start: 04-08-2020 take 300 mg by mouth once daily at bedtime Quetiapine Active 300 MG PO Daily at bedtime April 08, 2020 12:00am Start: 10-04-2017 End: 04-08-2020 take 100-200 mg by mouth at bedtime Quetiapine Discontinued 100 - 200 MG PO Bedtime October 04, 2017 1:00am April 08, 2020 10:57am Completed/Discontinued Medications Medication Drug Class(es) Dates Sig (Normalized) Sig (Original) acetaminophen 325 mg / oxyCODONE hydrochloride 5 mg oral tablet (10 sources) Opioid Agonist Start: 10-04-2017 End: 11-09-2017 take 1 tablet by mouth every four to six hours Oxycodone-Acetamino phen (Percocet) 5-325 mg tablet Discontinued 1 TAB PO EVERY 4-6 HOURS November 02, 2017 11:44am November 09, 2017 2:20pm cholecalciferol 0.025 mg oral capsule (5 sources) Vitamin D Start: 10-04-2017 End: 04-08-2020 take 1 capsule by mouth once Cholecalciferol (Vitamin D3) (Vitamin D3) 1,000 unit Capsule Discontinued 1000 UNIT PO Once October 04, 2017 1:00am April 08, 2020 10:56am 1 ml glatiramer acetate 20 mg/ml prefilled syringe (5 sources) Start: 10-04-2017 End: 04-08-2020 inject 20 mg by subcutaneous injection once daily Glatiramer (Glatopa) 20 mg/mL syringe Discontinued 20 MG SUBCUT Daily October 04, 2017 1:00am April 08, 2020 10:57am sulfamethoxazole 800 mg / trimethoprim 160 mg oral tablet (10 sources) Dihydrofolate Reductase Inhibitor Antibacterial, Sulfonamide Antimicrobial [...] 09, 2017 12:00am April 08, 2020 10:57am teriflunomide 14 mg oral tablet (5 sources) Pyrimidine Synthesis Inhibitor Start: 04-08-2020 End: 12-13-2023 take 1 tablet by mouth once daily Teriflunomide (Aubagio) 14 mg tablet Discontinued 14 MG PO Daily April 08, 2020 12:00am December 13, 2023 10:23am tiZANidine 4 mg oral tablet (8 sources) Central alpha-2 Adrenergic Agonist Start: 04-08-2020 [...] COUNT UNS] Onset: 01-25-2022 Chronic Multiple sclerosis (16 sources) Multiple sclerosis; Translations: [Multiple sclerosis] Onset: 06-02-2021 Resolved: 12-01-2021 11-26-2020 Chronic Other nervous system disorders (4 sources) Chronic pain; Translations: [Other chronic pain] Chronic Spondylosis; intervertebral disc disorders; other back problems (15 sources) Prolapsed lumbar intervertebral disc; Translations: [Other intervertebral disc displacement, lumbar region] Onset: 06-02-2021 Resolved: 06-02-2021 11-28-2020 Chronic Spondylosis; intervertebral disc disorders; other back problems (20 sources) Sciatica; Translations: [Sciatica, unspecified side] Onset: [...] 01-26-2022 Episodic Other aftercare (1 source) 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; Translations: [OTH JOB TRACER CURRENT DRUG THERAPY] Onset: 02-01-2022 Episodic Other [...] uncomplicated; Translations: [CANNABIS USE UNS UNCOMPLICATED] Onset: 01-26-2022 Episodic Results Test Name Value Interpretation Reference Range Facil ity XR lumbar spine AP/LAT/FLX/E XTon 12-12-2023 XR lumbar spine AP/LAT/FLX/EXT [place] [address] XRay Report Signed Patient: Alexis Negrete II MR#: [id number] : 1980 Acct:[id number] Age/Sex: 43 / M ADM Date: 12/12/23 Loc: XD Room: Type: [facility] Attending Dr: Js May MD Copies to: Js May MD Ordering Provider: Js May MD Date of Service: 12/12/23 XR/XR lumbar [...] to the prior exam. Impression dictated by: Heidi Richardson M.D.12/12/2023 8:25 PM Dictation Location: [place] [address] Transcribed By: [facility] 12/12/232024 Dictated By: Heidi Richardson II, MD 12/12/232023 Signed By: 12/12/232024 Normal [facility] MR cervical spine wo/w conon 06-20-2023 MR cervical spine wo/w con [facility] [place] [address] [place] [address] MRI Report Signed Patient: Alexis Negrete II MR#: [id number] : 1980 Acct:[id number] Age/Sex: 42 / M ADM Date: 06/20/23 Loc: Room: Type: [facility] Attending Dr: Obey Lopez PA-C Copies to: [...] Heidi Richardson M.D.06/20/2023 1:44 PM Dictation Location: [place] [address] Transcribed By: [facility] 06/20/23 1344 Dictated By: Heidi Richardson II, MD 06/20/23 1338 Signed By: 06/20/23 1344 Normal [facility] MR thoracic spine wo/w conon 06-20-2023 MR thoracic spine wo/w con [place] [address] MRI Report Signed Patient: Alexis Negrete II MR#: [id number] : 1980 Acct:[id number] Age/Sex: 42 / M ADM Date: 06/20/23 Loc: MR Room: Type: [facility] Attending Dr: Obey Lopez PA-C Copies to: [...] Heidi Richardson M.D.06/20/2023 1:37 PM Dictation Location: [place] [address] Transcribed By: CELINA 06/20/231336 Dictated By: Heidi Richardson II, MD 06/20/231330 Signed By: 06/20/231336 Normal [facility] MR head/brain wo/w conon MR head/brain wo/w con [facility] [place] [address] [place] [address] MRI Report Signed Patient: Alexis Negrete II MR#: [id number] : 1980 Acct:[id number] Age/Sex: 42 / M ADM Date: 01/10/23 Loc: MR Room: Type: [facility] Attending Dr: Obey Lopez PA-C [...] Heidi Richardson M.D.01/11/2023 8:56 AM Dictation Location: [place] [address] Transcribed By: [facility] 01/11/23855 Dictated By: Heidi Richardson II, MD 01/11/2348 Signed By: 01/11/23855 Normal [facility] CBC AUTO DIFFon 09-16-2022 BASO # 0.0 103/ul Normal 0.0-0.1 [facility] Comment on above: Performed By: #### C BC #### [facility] [address] [place] [address] Dr. Nehemiah Vargas Basophils/100 WBC (Bld) 0.5 % Normal 0.2-2.0 [facility] Comment on above: Performed By: #### C BC #### [facility] [address] [place] [address] Dr. Nehemiah Vargas EO # 0.0 103/ul Normal 0.0-0.7 [facility] Comment on above: Performed By: #### C BC #### [facility] [address] [place] [address] Dr. Nehemiah Vargas Eosinophils/100 WBC (Bld) 0.5 % Critically low 0.9-7.0 [facility] Comment on above: Performed By: #### C BC #### [facility] [address] [place] [address] Dr. Nehemiah Vargas Erythrocyte distribution width (RBC) [Ratio] 13.2 % Normal 11.0-15.0 [facility] Comment on above: Performed By: #### C BC #### [facility] [address] [place] [address] Dr. Nehemiah Vargas Hematocrit (Bld) [Volume fraction] 50.1 % Normal 42.0-54.0 [facility] Comment on above: Performed By: #### C BC #### [facility] [address] [place] [address] Dr. Nehemiah Vargas Hemoglobin (Bld) [Mass/Vol] 15.2 g/dL Normal 14.0-18.0 [facility] Comment on above: Performed By: #### C BC #### [facility] [address] [place] [address] Dr. Nehemiah Vagras IG # 0.02 10e3/ul Normal 0.00-0.03 [facility] Comment on above: Performed By: #### C BC #### [facility] [address] [place] [address] Dr. Nehemiah Vargas IG % 0.3 % Normal 0.0-0.5 [facility] Comment on above: Performed By: #### C BC #### [facility] [address] [place] [address] Dr. Nehemiah Vargas LYMPH # 1.8 103/ul Normal 1.2-3.8 [facility] Comment on above: Performed By: #### C BC #### [facility] [address] [place] [address] Dr. Nehemiah Vargas Lymphocytes/100 WBC (Bld) 22.9 % Normal 20.5-60.0 [facility] Comment on above: Performed By: #### C BC #### [facility] [address] [place] [address] Dr. Nehemiah Vargas MANUAL DIFF REQ NO Normal [facility] Comment on above: Performed By: #### C BC #### [facility] [address] [place] [address] Dr. Nehemiah Vargas MCH (RBC) [Entitic mass] 29.9 pg Normal 25.9-34.0 [facility] Comment on above: Performed By: #### C BC #### [facility] [address] [place] [address] Dr. Nehemiah Vargas MCHC (RBC) [Mass/Vol] 30.3 g/dL Normal 29.9-35.2 [facility] Comment on above: Performed By: #### C BC #### [facility] [address] [place] [address] Dr. Nehemiah Vargas MCV (RBC) [Entitic vol] 98.4 fL Critically high 80.0-94.0 [facility] Comment on above: Performed By: #### C BC #### [facility] [address] [place] [address] Dr. Nehemiah Vargas MONO # 0.5 103/ul Normal 0.3-0.8 [facility] Comment on above: Performed By: #### C BC #### [facility] [address] [place] [address] Dr. Nehemiah Vargas Monocytes/100 WBC (Bld) 6.7 % Normal 1.7-12.0 [facility] Comment on above: Performed By: #### C BC #### [facility] [address] [place] [address] Dr. Nehemiah Vargas NEUT # 5.5 103/ul Normal 1.4-6.5 [facility] Comment on above: Performed By: #### C BC #### [facility] [address] [place] [address] Dr. Nehemiah Vargas Neutrophils/100 WBC (Bld) 69.1 % Normal 43.0-75.0 [facility] Comment on above: Performed By: #### C BC #### [facility] [address] [place] [address] Dr. Nehemiah Vargas Platelet mean volume (Bld) [Entitic vol] 10.1 fL Normal 9.5-13.5 [facility] Comment on above: Performed By: #### C BC #### [facility] [address] [place] [address] Dr. Nehemiah Vargas PLT 159 103/ul Normal 150-450 [facility] Comment on above: Performed By: #### C BC #### [facility] [address] [place] [address] Dr. Nehemiah Vargas RBC 5.09 106/ul Normal 4.70-6.10 [facility] Comment on above: Performed By: #### C BC #### [facility] [address] [place] [address] Dr. Nehemiah Vargas WBC 7.9 103/ul Normal 4.0-11.0 [facility] Comment on above: Performed By: #### C BC #### [facility] [address] [address] [address] Nehemiah Vargas PROF 14(COMP METB)on 023 Albumin [Mass/Vol] 3.9 g/dL Normal 3.4-5.0 [facility] Comment on above: Performed By: #### C MP #### [facility] [address] [place] [address] [address] Nehemiah Vargas Albumin/Globulin [Mass ratio] 1.2 {ratio} Normal [facility] Comment on above: Performed By: #### C MP #### [facility] [address] [place] [address] Dr. Nehemiah Vargas ALP [Catalytic activity/Vol] 118 U/L Critically high 46-116 [facility] Comment on above: Performed By: #### C MP #### [facility] [address] [place] [address] Dr. Nehemiah Vargas ALT [Catalytic activity/Vol] 25 U/L Normal 16-63 [facility] Comment on above: Performed By: #### C MP #### [facility] [address] [place] [address] Dr. Nehemiah Vargas Anion gap [Moles/Vol] 11.7 mmol/L Normal [facility] Comment on above: Performed By: #### C MP #### [facility] [address] [place] [address] Dr. Nehemiah Vargas AST [Catalytic activity/Vol] 24 U/L Normal 15-37 [facility] Comment on above: Performed By: #### C MP #### [facility] [address] [place] [address] Dr. Nehemiah Vargas Bilirubin [Mass/Vol] 0.5 mg/dL Normal 0.2-1.0 [facility] Comment on above: Performed By: #### C MP #### [facility] [address] [place] [address] Dr. Nehemiah Vargas Calcium [Mass/Vol] 8.8 mg/dL Normal 8.5-10.1 [facility] Comment on above: Performed By: #### C MP #### [facility] [address] [place] [address] Dr. Nehemiah Vargas Chloride [Moles/Vol] 101 mmol/L Normal 98-107 [facility] Comment on above: Performed By: #### C MP #### [facility] [address] [place] [address] Dr. Nehemiah Vargas CO2 [Moles/Vol] 30.4 mmol/L Normal 21.0-32.0 [facility] Comment on above: Performed By: #### C MP #### [facility] [address] [place] [address] Dr. Nehemiah Vargas Creatinine [Mass/Vol] 0.86 mg/dL Normal 0.70-1.30 [facility] Comment on above: Performed By: #### C MP #### [facility] [address] [place] [address] Dr. Nehemiah Vargas EGFR-AF HUNGARIAN >60 Normal >=60 [facility] Comment on above: Performed By: #### C MP #### [facility] [address] [place] [address] Dr. Nehemiah Vargas EGFR-NON AF HUNGARIAN >60 Normal >=60 [facility] Comment on above: Performed By: #### C MP #### [facility] [address] [place] [address] Dr. Nehemiah Vargas Globulin (S) [Mass/Vol] 3.2 g/dL Normal [facility] Comment on above: Performed By: #### C MP #### [facility] [address] [place] [address] Dr. Nehemiah Vargas Glucose [Mass/Vol] 116 mg/dL Critically high 74-106 [facility] Comment on above: Performed By: #### C MP #### [facility] [address] [place] [address] Dr. Nehemiah Vargas Potassium [Moles/Vol] 4.1 mmol/L Normal 3.5-5.1 [facility] Comment on above: Performed By: #### C MP #### [facility] [address] [place] [address] Dr. Nehemiah Vargas Protein [Mass/Vol] 7.1 g/dL Normal 6.4-8.2 [facility] Comment on above: Performed By: #### C MP #### [facility] [address] [place] [address] [address] Nehemaih Vargas Sodium [Moles/Vol] 139 mmol/L Normal 136-145 [facility] Comment on above: Performed By: #### C MP #### [facility] [address] [place] [address] [address] Nehemiah Vargas Urea nitrogen [Mass/Vol] 10.0 mg/dL Normal 7.0-18.0 [facility] Comment on above: Performed By: #### C MP #### [facility] [address] [place] [address] [address] Nehemiah Vargas Urea nitrogen/Creatinin e [Mass ratio] 11.6 mg/mg Normal [facility] Comment on above: Performed By: #### C MP #### [facility] [address] [address] [address] Nehemiah Vargas VIT D 25-OH [facility] 2021 Vitamin D, 25-Hydroxy 42.1 ng/mL Normal 30.0-100.0 [facility] Comment on above: Result Comment: Bria min D deficiency has been defined by the [place] [employer] and an Endocrine Society practice guideline as a level of serum 25-OH vitamin D less than 20 ng/mL (1,2). The Endocrine Society went on to further define vitamin D insufficiency as a level between 21 and 29 ng/mL (2). 1. IOM ([place] [employer]). 2010. Dietary reference intakes for calcium and D. Castañeda [place]: The National Academies Press. 2. Deana MF, Eddie NC, Migel AMADOR, et al. Evaluation, treatment, and prevention of vitamin D deficiency: an Endocrine Society clinical practice guideline. JCEM. 2010; 96(7):1911-30. Performed By: #### V ITADLC #### [facility] [address] [place] [address] Dr. Nehemiah Vargas FREE T3on 04-08-2022 FREE T3 1.59 pg/mlL Critically low 2.18-3.98 [facility] Comment on above: Performed By: #### C BC #### [facility] [address] [place] [address] [address] Nehemiah Vargas FREE T4on 04-08-2022 Free T4 [Mass/Vol] 0.78 ng/dL Normal 0.76-1.46 [facility] Comment on above: Performed By: #### C BC #### [facility] [address] [place] [address] [address] Nehemiah Vargas TSHon 04-08-2022 TSH 0.219 uIU/mL Critically low 0.358-3.740 [facility] Comment on above: Performed By: #### C BC #### [facility] [address] [place] [address] Dr. Nehemiah Vargas PROLACTINon 01-23-2022 Prolactin 107.0 ng/mL Critically high 4.0-15.2 [facility] Comment on above: Performed By: #### C BC #### [facility] [address] [place] [address] Dr. Nehemiah Vargas CARDIAC HEIDI ADMITon 022 CK [Catalytic activity/Vol] 108 U/L Normal 39-308 [facility] Comment on above: Performed By: #### C BC #### [facility] [address] [place] [address] Dr. Nehemiah Vargas CK.MB [Mass/Vol] 3.01 ng/mL Normal <=3.60 [facility] Comment on above: Performed By: #### C BC #### [facility] [address] [place] [address] Dr. Nehemiah Vargas HSTROP 4.0 pg/mL Normal 4.0-76.1 [facility] Comment on above: Result Comment: CUT- OFF POINTS HAVE BEEN ESTABLISHED BASED ON THE FOURTH UNIVERSAL DEFINITIONS OF MYOCARDIAL INFARCTION. THE UPPER REFERENCE LIMIT (URL) OF TROPONIN, DEFINED THE 99TH PERCENTILE OF cTnI DISTRIBUTION IN A REFERENCE POPULATION, HAS BEEN CONFIRMED THE DECISION THRESHOLD FOR RI DIAGNOSIS. Performed By: #### C BC #### [facility] [address] [place] [address] Dr. Nehemiah Vargas RICARDO 33 ng/mL Normal 16-96 [facility] Comment on above: Performed By: #### C BC #### [facility] [address] [place] [address] Dr. Nehemiah Vargas CBC AUTO DIFFon 01-22-2022 BASO # 0.0 103/ul Normal 0.0-0.1 [facility] Comment on above: Performed By: #### C BC #### [facility] [address] [place] [address] Dr. Nehemiah Vargas Basophils/100 WBC (Bld) 0.5 % Normal 0.2-2.0 [facility] Comment on above: Performed By: #### C BC #### [facility] [address] [place] [address] Dr. Nehemiah Vargas EO # 0.0 103/ul Normal 0.0-0.7 [facility] Comment on above: Performed By: #### C BC #### [facility] [address] [place] [address] Dr. Nehemiah Vargas Eosinophils/100 WBC (Bld) 0.3 % Critically low 0.9-7.0 [facility] Comment on above: Performed By: #### C BC #### [facility] [address] [place] [address] Dr. Nehemiah Vargas Erythrocyte distribution width (RBC) [Ratio] 12.4 % Normal 11.0-15.0 [facility] Comment on above: Performed By: #### C BC #### [facility] [address] [place] [address] Dr. Nehemiah Vargas Hematocrit (Bld) [Volume fraction] 43.1 % Normal 42.0-54.0 [facility] Comment on above: Performed By: #### C BC #### [facility] [address] [place] [address] Dr. Nehemiah Vargas Hemoglobin (Bld) [Mass/Vol] 14.6 g/dL Normal 14.0-18.0 [facility] Comment on above: Performed By: #### C BC #### [facility] [address] [place] [address] Dr. Nehemiah Vargas IG # 0.02 10e3/ul Normal 0.00-0.03 [facility] Comment on above: Performed By: #### C BC #### [facility] [address] [place] [address] Dr. Nehemiah Vargas IG % 0.3 % Normal 0.0-0.5 [facility] Comment on above: Performed By: #### C BC #### [facility] [address] [place] [address] Dr. Nehemiah Vargas LYMPH # 0.9 103/ul Critically low 1.2-3.8 [facility] Comment on above: Performed By: #### C BC #### [facility] [address] [place] [address] Dr. Nehemiah Vargas Lymphocytes/100 WBC (Bld) 13.1 % Critically low 20.5-60.0 [facility] Comment on above: Performed By: #### C BC #### [facility] [address] [place] [address] Dr. Nehemiah Vargas MANUAL DIFF REQ NO Normal [facility] Comment on above: Performed By: #### C BC #### [facility] [address] [place] [address] Dr. Nehemiah Vargas MCH (RBC) [Entitic mass] 30.0 pg Normal 25.9-34.0 [facility] Comment on above: Performed By: #### C BC #### [facility] [address] [place] [address] Dr. Nehemiah Vargas MCHC (RBC) [Mass/Vol] 33.9 g/dL Normal 29.9-35.2 [facility] Comment on above: Performed By: #### C BC #### [facility] [address] [place] [address] Dr. Nehemiah Vargas MCV (RBC) [Entitic vol] 88.7 fL Normal 80.0-94.0 [facility] Comment on above: Performed By: #### C BC #### [facility] [address] [place] [address] Dr. Nehemiah Vargas MONO # 0.4 103/ul Normal 0.3-0.8 [facility] Comment on above: Performed By: #### C BC #### [facility] [address] [place] [address] Dr. Nehemiah Vargas Monocytes/100 WBC (Bld) 5.3 % Normal 1.7-12.0 [facility] Comment on above: Performed By: #### C BC #### [facility] [address] [place] [address] Dr. Nehemiah Vargas NEUT # 5.4 103/ul Normal 1.4-6.5 [facility] Comment on above: Performed By: #### C BC #### [facility] [address] [place] [address] Dr. Nehemiah Vargas Neutrophils/100 WBC (Bld) 80.5 % Critically high 43.0-75.0 [facility] Comment on above: Performed By: #### C BC #### [facility] [address] [place] [address] Dr. Nehemiah Vargas Platelet mean volume (Bld) [Entitic vol] 9.1 fL Critically low 9.5-13.5 [facility] Comment on above: Performed By: #### C BC #### [facility] [address] [place] [address] Dr. Nehemiah Vargas PLT 198 103/ul Normal 150-450 [facility] Comment on above: Performed By: #### C BC #### [facility] [address] [place] [address] Dr. Nehemiah Vargas RBC 4.86 106/ul Normal 4.70-6.10 [facility] Comment on above: Performed By: #### C BC #### [facility] [address] [place] [address] Dr. Nehemiah Vargas WBC 6.7 103/ul Normal 4.0-11.0 [facility] Comment on above: Performed By: #### C BC #### [facility] [address] [place] [address] HEAD WO CONon [...] IZZY CHAMPAGNE Date: 2022-01-22 12:00 Normal [facility] LACTATE/LACTIC ACIDon 2021 Lactate [Moles/Vol] 1.2 mmol/L Normal 0.4-1.9 [facility] Comment on above: Performed By: #### L ACT #### [facility] [address] [place] [address] Dr. Nehemiah Vargas LIPASEon 01-22-2022 Lipase [Catalytic activity/Vol] 95.0 U/L Normal 73.0-393.0 [facility] Comment on above: Performed By: #### C BC #### [facility] [address] [place] [address] Dr. Nehemiah Vargas PH VENOUS BLOODon 01-22-2022 PCO2 VENOUS 51.9 mmHg Normal 40.0-52.0 [facility] Comment on above: Performed By: #### C BC #### [facility] [address] [place] [address] Dr. Nehemiah Vargas pH VENOUS 7.301 Critically low 7.330-7.430 [facility] Comment on above: Performed By: #### C BC #### [facility] [address] [place] [address] Dr. Nehemiah Vargas PROF 14(COMP METB)on 022 Albumin [Mass/Vol] 3.7 g/dL Normal 3.4-5.0 [facility] Comment on above: Performed By: #### C BC #### [facility] [address] [place] [address] Dr. Nehemiah Vargas Albumin/Globulin [Mass ratio] 1.2 {ratio} Normal [facility] Comment on above: Performed By: #### C BC #### [facility] [address] [address] [address] Nehemiah Vargas ALP [Catalytic activity/Vol] 97 U/L Normal 46-116 [facility] Comment on above: Performed By: #### C BC #### [facility] [address] [place] [address] Dr. Nehemiah Vargas ALT [Catalytic activity/Vol] 26 U/L Normal 16-63 [facility] Comment on above: Performed By: #### C BC #### [facility] [address] [place] [address] Dr. Nehemiah Vargas Anion gap [Moles/Vol] 11.1 mmol/L Normal [facility] Comment on above: Performed By: #### C BC #### [facility] [address] [place] [address] Dr. Nehemiah Vargas AST [Catalytic activity/Vol] 20 U/L Normal 15-37 [facility] Comment on above: Performed By: #### C BC #### [facility] [address] [place] [address] Dr. Nehemiah Vargas Bilirubin [Mass/Vol] 0.4 mg/dL Normal 0.2-1.0 [facility] Comment on above: Performed By: #### C BC #### [facility] [address] [place] [address] Dr. Nehemiah Vargas Calcium [Mass/Vol] 8.4 mg/dL Critically low 8.5-10.1 [facility] Comment on above: Performed By: #### C BC #### [facility] [address] [place] [address] Dr. Nehemiah Vargas Chloride [Moles/Vol] 96 mmol/L Critically low 98-107 [facility] Comment on above: Performed By: #### C BC #### [facility] [address] [address] [address] Nehemiah Vargas CO2 [Moles/Vol] 28.1 mmol/L Normal 21.0-32.0 [facility] Comment on above: Performed By: #### C BC #### [facility] [address] [address] [address] Nehemiah Vargas Creatinine [Mass/Vol] 0.85 mg/dL Normal 0.70-1.30 [facility] Comment on above: Performed By: #### C BC #### [facility] [address] [address] [address] Nehemiah Vargas EGFR-AF HUNGARIAN >60 Normal >=60 [facility] Comment on above: Performed By: #### C BC #### [facility] [address] [place] [address] Dr. Nehemiah Vargas EGFR-NON AF HUNGARIAN >60 Normal >=60 [facility] Comment on above: Performed By: #### C BC #### [facility] [address] [place] [address] Dr. Nehemiah Vargas Globulin (S) [Mass/Vol] 3.1 g/dL Normal [facility] Comment on above: Performed By: #### C BC #### [facility] [address] [place] [address] Dr. Nehemiah Vargas Glucose [Mass/Vol] 138 mg/dL Critically high 74-106 [facility] Comment on above: Performed By: #### C BC #### [facility] [address] [address] [address] Nehemiah Vargas Potassium [Moles/Vol] 4.2 mmol/L Normal 3.5-5.1 [facility] Comment on above: Performed By: #### C BC #### [facility] [address] [place] [address] Dr. Nehemiah Vargas Protein [Mass/Vol] 6.8 g/dL Normal 6.4-8.2 [facility] Comment on above: Performed By: #### C BC #### [facility] [address] [place] [address] Dr. Nehemiah Vargas Sodium [Moles/Vol] 131 mmol/L Critically low 136-145 [facility] Comment on above: Performed By: #### C BC #### [facility] [address] [address] [address] Nehemiah Vargas Urea nitrogen [Mass/Vol] 7.0 mg/dL Normal 7.0-18.0 [facility] Comment on above: Performed By: #### C BC #### [facility] [address] [address] [address] Nehemiah Vargas Urea nitrogen/Creatinin e [Mass ratio] 8.2 mg/mg Normal [facility] Comment on above: Performed By: #### C BC #### [facility] [address] [place] [address] Dr. Nehemiah Vargas TSHon 01-22-2022 TSH 1.003 uIU/mL Normal 0.358-3.740 [facility] Comment on above: Performed By: #### C BC #### [facility] [address] [place] [address] Dr. Nehemiah Vargas TSH RANGE SEE BELOW Normal [facility] Comment on above: Result Comment: <0.3 4 UIU/ml HYPERTHYROID 0.34-5.60 UIU/ml EUTHYROID >5.60 UIU/ml HYPOTHYROID Performed By: #### C BC #### [facility] [address] [place] [address] Dr. Nehemiah Vargas XR CHEST 1 Von [...] IZZY CHAMPAGNE Date: 2022-01-22 12:01 Normal [facility] CBC AUTO DIFFon 01-19-2022 BASO # 0.0 103/ul Normal 0.0-0.1 [facility] Comment on above: Performed By: #### C BC #### [facility] [address] [place] [address] Dr. Nehemiah Vargas Basophils/100 WBC (Bld) 0.4 % Normal 0.2-2.0 [facility] Comment on above: Performed By: #### C BC #### [facility] [address] [place] [address] Dr. Nehemiah Vargas EO # 0.1 103/ul Normal 0.0-0.7 [facility] Comment on above: Performed By: #### C BC #### [facility] [address] [place] [address] Dr. Nehemiah Vargas Eosinophils/100 WBC (Bld) 1.3 % Normal 0.9-7.0 [facility] Comment on above: Performed By: #### C BC #### [facility] [address] [place] [address] Dr. Nehemiah Vargas Erythrocyte distribution width (RBC) [Ratio] 12.9 % Normal 11.0-15.0 [facility] Comment on above: Performed By: #### C BC #### [facility] [address] [place] [address] Dr. Nehemiah Vargas Hematocrit (Bld) [Volume fraction] 42.8 % Normal 42.0-54.0 [facility] Comment on above: Performed By: #### C BC #### [facility] [address] [place] [address] Dr. Nehemiah Vargas Hemoglobin (Bld) [Mass/Vol] 13.9 g/dL Critically low 14.0-18.0 [facility] Comment on above: Performed By: #### C BC #### [facility] [address] [place] [address] Dr. Nehemiah Vargas IG # 0.02 10e3/ul Normal 0.00-0.03 [facility] Comment on above: Performed By: #### C BC #### [facility] [address] [place] [address] Dr. Nehemiah Vargas IG % 0.3 % Normal 0.0-0.5 [facility] Comment on above: Performed By: #### C BC #### [facility] [address] [place] [address] Dr. Nehemiah Vargas LYMPH # 1.8 103/ul Normal 1.2-3.8 [facility] Comment on above: Performed By: #### C BC #### [facility] [address] [place] [address] Dr. Nehemiah Vargas Lymphocytes/100 WBC (Bld) 26.5 % Normal 20.5-60.0 [facility] Comment on above: Performed By: #### C BC #### [facility] [address] [place] [address] Dr. Nehemiah Vargas MANUAL DIFF REQ NO Normal [facility] Comment on above: Performed By: #### C BC #### [facility] [address] [place] [address] Dr. Nehemiah Vargas MCH (RBC) [Entitic mass] 29.6 pg Normal 25.9-34.0 [facility] Comment on above: Performed By: #### C BC #### [facility] [address] [place] [address] Dr. Nehemiah Vargas MCHC (RBC) [Mass/Vol] 32.5 g/dL Normal 29.9-35.2 [facility] Comment on above: Performed By: #### C BC #### [facility] [address] [place] [address] Dr. Nehemiah Vargas MCV (RBC) [Entitic vol] 91.1 fL Normal 80.0-94.0 [facility] Comment on above: Performed By: #### C BC #### [facility] [address] [place] [address] Dr. Nehemiah Vargas MONO # 0.5 103/ul Normal 0.3-0.8 [facility] Comment on above: Performed By: #### C BC #### [facility] [address] [place] [address] Dr. Nehemiah Vargas Monocytes/100 WBC (Bld) 6.9 % Normal 1.7-12.0 [facility] Comment on above: Performed By: #### C BC #### [facility] [address] [place] [address] Dr. Nehemiah Vargas NEUT # 4.4 103/ul Normal 1.4-6.5 [facility] Comment on above: Performed By: #### C BC #### [facility] [address] [place] [address] Dr. Nehemiah Vargas Neutrophils/100 WBC (Bld) 64.6 % Normal 43.0-75.0 [facility] Comment on above: Performed By: #### C BC #### [facility] [address] [place] [address] Dr. Nehemiah Vargas Platelet mean volume (Bld) [Entitic vol] 10.3 fL Normal 9.5-13.5 [facility] Comment on above: Performed By: #### C BC #### [facility] [address] [place] [address] Dr. Nehemiah Vargas PLT 193 103/ul Normal 150-450 [facility] Comment on above: Performed By: #### C BC #### [facility] [address] [place] [address] Dr. Nehemiah Vargas RBC 4.70 106/ul Normal 4.70-6.10 [facility] Comment on above: Performed By: #### C BC #### [facility] [address] [place] [address] Dr. Nehemiah Vargas WBC 6.8 103/ul Normal 4.0-11.0 [facility] Comment on above: Performed By: #### C BC #### [facility] [address] [place] [address] Dr. Nehemiah Vargas PROF CHEM 8 (BAS METB)on Anion gap [Moles/Vol] 8.7 mmol/L Normal [facility] Comment on above: Performed By: #### C BC #### [facility] [address] [place] [address] Dr. Nehemiah Vargas Calcium [Mass/Vol] 8.6 mg/dL Normal 8.5-10.1 [facility] Comment on above: Performed By: #### C BC #### [facility] [address] [address] [address] Nehemiah Vargas Chloride [Moles/Vol] 100 mmol/L Normal 98-107 [facility] Comment on above: Performed By: #### C BC #### [facility] [address] [address] [address] Nehemiah Vargas CO2 [Moles/Vol] 29.8 mmol/L Normal 21.0-32.0 [facility] Comment on above: Performed By: #### C BC #### [facility] [address] [address] [address] Nehemiah Vargas Creatinine [Mass/Vol] 0.88 mg/dL Normal 0.70-1.30 [facility] Comment on above: Performed By: #### C BC #### [facility] [address] [place] [address] Dr. Nehemiah Vargas EGFR-AF HUNGARIAN >60 Normal >=60 [facility] Comment on above: Performed By: #### C BC #### [facility] [address] [place] [address] Dr. Nehemiah Vargas EGFR-NON AF HUNGARIAN >60 Normal >=60 [facility] Comment on above: Performed By: #### C BC #### [facility] [address] [place] [address] Dr. Nehemiah Vargas Glucose [Mass/Vol] 107 mg/dL Critically high 74-106 [facility] Comment on above: Performed By: #### C BC #### [facility] [address] [place] [address] Dr. Nehemiah Vargas Potassium [Moles/Vol] 4.5 mmol/L Normal 3.5-5.1 [facility] Comment on above: Performed By: #### C BC #### [facility] [address] [place] [address] Dr. Nehemiah Vargas Sodium [Moles/Vol] 134 mmol/L Critically low 136-145 [facility] Comment on above: Performed By: #### C BC #### [facility] [address] [address] [address] Nehemiah Vargas Urea nitrogen [Mass/Vol] 9.0 mg/dL Normal 7.0-18.0 [facility] Comment on above: Performed By: #### C BC #### [facility] [address] [address] [address] Nehemiah Vargas Urea nitrogen/Creatinin e [Mass ratio] 10.2 mg/mg Normal [facility] Comment on above: Performed By: #### C BC #### [facility] [address] [address] [address] Nehemiah Vargas TSHon 01-19-2022 TSH 0.322 uIU/mL Critically low 0.358-3.740 [facility] Comment on above: Performed By: #### C BC #### [facility] [address] [place] [address] Dr. Nehemiah Vargas TSH RANGE SEE BELOW Normal [facility] Comment on above: Result Comment: <0.3 4 UIU/ml HYPERTHYROID 0.34-5.60 UIU/ml EUTHYROID >5.60 UIU/ml HYPOTHYROID Performed By: #### C BC #### [facility] [address] [address] [address] Nehemiah Vargas CARDIAC HEIDI ADMITon 022 CK [Catalytic activity/Vol] 124 U/L Normal 39-308 [facility] Comment on above: Performed By: #### C MADM, CMP, ETH #### [facility] [address] [place] [address] Dr. Nehemiah Vargas CK.MB [Mass/Vol] 3.55 ng/mL Normal <=3.60 [facility] Comment on above: Performed By: #### C MADM, CMP, ETH #### [facility] [address] [place] [address] Dr. Nehemiah Vargas HSTROP 5.7 pg/mL Normal 4.0-76.1 [facility] Comment on above: Result Comment: CUT- OFF POINTS HAVE BEEN ESTABLISHED BASED ON THE FOURTH UNIVERSAL DEFINITIONS OF MYOCARDIAL INFARCTION. THE UPPER REFERENCE LIMIT (URL) OF TROPONIN, DEFINED THE 99TH PERCENTILE OF cTnI DISTRIBUTION IN A REFERENCE POPULATION, HAS BEEN CONFIRMED THE DECISION THRESHOLD FOR RI DIAGNOSIS. Performed By: #### C SADIE VALLEJO, ETH #### [facility] [address] [place] [address] Dr. Nehemiah Vargas RICARDO 62 ng/mL Normal 16-96 [facility] Comment on above: Performed By: #### C SADIE VALLEJO, ETH #### [facility] [address] [place] [address] Dr. Nehemiah Vargas CBC AUTO DIFFon 01-18-2022 BASO # 0.0 103/ul Normal 0.0-0.1 [facility] Comment on above: Performed By: #### C BC #### [facility] [address] [place] [address] Dr. Nehemiah Vargas Basophils/100 WBC (Bld) 0.4 % Normal 0.2-2.0 [facility] Comment on above: Performed By: #### C BC #### [facility] [address] [place] [address] Dr. Nehemiah Vargas EO # 0.1 103/ul Normal 0.0-0.7 [facility] Comment on above: Performed By: #### C BC #### [facility] [address] [place] [address] Dr. Nehemiah Vargas Eosinophils/100 WBC (Bld) 0.8 % Critically low 0.9-7.0 [facility] Comment on above: Performed By: #### C BC #### [facility] [address] [place] [address] Dr. Nehemiah Vargas Erythrocyte distribution width (RBC) [Ratio] 12.5 % Normal 11.0-15.0 [facility] Comment on above: Performed By: #### C BC #### [facility] [address] [place] [address] Dr. Nehemiah Vargas Hematocrit (Bld) [Volume fraction] 43.9 % Normal 42.0-54.0 [facility] Comment on above: Performed By: #### C BC #### [facility] [address] [place] [address] Dr. Nehemiah Vargas Hemoglobin (Bld) [Mass/Vol] 14.3 g/dL Normal 14.0-18.0 [facility] Comment on above: Performed By: #### C BC #### [facility] [address] [place] [address] Dr. Nehemiah Vargas IG # 0.03 10e3/ul Normal 0.00-0.03 [facility] Comment on above: Performed By: #### C BC #### [facility] [address] [place] [address] Dr. Nehemiah Vargas IG % 0.3 % Normal 0.0-0.5 [facility] Comment on above: Performed By: #### C BC #### [facility] [address] [place] [address] Dr. Nehemiah Vargas LYMPH # 0.9 103/ul Critically low 1.2-3.8 [facility] Comment on above: Performed By: #### C BC #### [facility] [address] [place] [address] Dr. Nehemiah Vargas Lymphocytes/100 WBC (Bld) 9.4 % Critically low 20.5-60.0 [facility] Comment on above: Performed By: #### C BC #### [facility] [address] [place] [address] Dr. Nehemiah Vargas MANUAL DIFF REQ NO Normal [facility] Comment on above: Performed By: #### C BC #### [facility] [address] [place] [address] Dr. Nehemiah Vargas MCH (RBC) [Entitic mass] 29.9 pg Normal 25.9-34.0 [facility] Comment on above: Performed By: #### C BC #### [facility] [address] [place] [address] Dr. Nehemiah Vargas MCHC (RBC) [Mass/Vol] 32.6 g/dL Normal 29.9-35.2 [facility] Comment on above: Performed By: #### C BC #### [facility] [address] [place] [address] Dr. Nehemiah Vargas MCV (RBC) [Entitic vol] 91.6 fL Normal 80.0-94.0 [facility] Comment on above: Performed By: #### C BC #### [facility] [address] [place] [address] Dr. Nehemiah Vargas MONO # 0.5 103/ul Normal 0.3-0.8 [facility] Comment on above: Performed By: #### C BC #### [facility] [address] [place] [address] Dr. Nehemiah Vargas Monocytes/100 WBC (Bld) 5.5 % Normal 1.7-12.0 [facility] Comment on above: Performed By: #### C BC #### [facility] [address] [place] [address] Dr. Nehemiah Vargas NEUT # 7.6 103/ul Critically high 1.4-6.5 [facility] Comment on above: Performed By: #### C BC #### [facility] [address] [place] [address] Dr. Nehemiah Vargas Neutrophils/100 WBC (Bld) 83.6 % Critically high 43.0-75.0 [facility] Comment on above: Performed By: #### C BC #### [facility] [address] [place] [address] Dr. Nehemiah Vargas Platelet mean volume (Bld) [Entitic vol] 9.1 fL Critically low 9.5-13.5 [facility] Comment on above: Performed By: #### C BC #### [facility] [address] [place] [address] Dr. Nehemiah Vargas PLT 169 103/ul Normal 150-450 [facility] Comment on above: Performed By: #### C BC #### [facility] [address] [place] [address] Dr. Nehemiah Vargas RBC 4.79 106/ul Normal 4.70-6.10 [facility] Comment on above: Performed By: #### C BC #### [facility] [address] [place] [address] Dr. Nehemiah Vargas WBC 9.1 103/ul Normal 4.0-11.0 [facility] Comment on above: Performed By: #### C BC #### [facility] [address] [address] [address] Nehemiah Vargas DRUG SCREEN RAPID (URINE)on 01-18-2022 AMP Negative Normal NEGATIVE [facility] Comment on above: Performed By: #### C BC #### [facility] [address] [address] [address] Nehemiah Vargas BAR Negative Normal NEGATIVE [facility] Comment on above: Performed By: #### C BC #### [facility] [address] [address] [address] Nehemiah Vargas BUP Negative Normal NEGATIVE [facility] Comment on above: Performed By: #### C BC #### [facility] [address] [place] [address] Dr. Nehemiah Vargas BZO Positive Abnormal NEGATIVE [facility] Comment on above: Performed By: #### C BC #### [facility] [address] [place] [address] Dr. Nehemiah Vargas JILLIAN Negative Normal NEGATIVE [facility] Comment on above: Performed By: #### C BC #### [facility] [address] [address] [address] Nehemiah Vargas CUT-OFFS SEE BELOW Normal [facility] Comment on above: Result Comment: AMP (Amphetamine): 500ng/mL, BAR (Barbituates): 200 ng/mL, BZO (Benzodiazepines): 150 ng/mL, BUP (Buprenorphine): 10 ng/mL, JILLIAN (Cocaine): 150 ng/mL, mAMP (Methamphetamine): 500 ng/mL, MTD (Methadone): 200 ng/mL, OPI (Opiates): 100 ng/mL, OXY (Oxycodone): 100 ng/mL, PCP (Phencyclidine): 25 ng/mL, PPX (Propoxyphene): 300 ng/mL, THC (Cannabinoids): 50 ng/mL, TCA (Trycyclic Antidepressants): 300 ng/mL Performed By: #### C BC #### [facility] [address] [place] [address] Dr. Nehemiah Vargas DRUG CUT HEADER DRUG CLASS TEST SYSTEM CUT-OFF CONCENTRATIONS ARE FOLLOWS: Normal [facility] Comment on above: Performed By: #### C BC #### [facility] [address] [address] [address] Nehemiah Vargas mAMP Negative Normal NEGATIVE [facility] Comment on above: Performed By: #### C BC #### [facility] [address] [place] [address] Dr. Nehemiah Vargas MTD Negative Normal NEGATIVE [facility] Comment on above: Performed By: #### C BC #### [facility] [address] [place] [address] Dr. Nehemiah Vargas OPI Negative Normal NEGATIVE [facility] Comment on above: Performed By: #### C BC #### [facility] [address] [place] [address] Dr. Nehemiah Vargas OXY Negative Normal NEGATIVE [facility] Comment on above: Performed By: #### C BC #### [facility] [address] [place] [address] Dr. Nehemiah Vargas PCP Negative Normal NEGATIVE [facility] Comment on above: Performed By: #### C BC #### [facility] [address] [place] [address] Dr. Nehemiah Vargas PPX Negative Normal NEGATIVE [facility] Comment on above: Performed By: #### C BC #### [facility] [address] [place] [address] Dr. Nehemiah Vargas TCA Positive Abnormal NEGATIVE [facility] Comment on above: Performed By: #### C BC #### [facility] [address] [place] [address] Dr. Nehemiah Vargas THC Positive Abnormal NEGATIVE [facility] Comment on above: Performed By: #### C BC #### [facility] [address] [place] [address] Dr. Nehemiah Vargas ER URINE PROFILEon 2 Bilirubin Ql (U) Negative Normal NEGATIVE [facility] Comment on above: Performed By: #### C BC #### [facility] [address] [place] [address] Dr. Nehemiah Vargas Clarity (U) CLEAR Normal CLEAR [facility] Comment on above: Performed By: #### C BC #### [facility] [address] [place] [address] Dr. Nehemiah Vargas Color (U) YELLOW Normal YELLOW [facility] Comment on above: Performed By: #### C BC #### [facility] [address] [place] [address] Dr. Nehemiah SANTO A micrscopic examination will be performed if indicated. Normal [facility] Comment on above: Performed By: #### C BC #### [facility] [address] [place] [address] Dr. Nehemiah Vargas Glucose Ql (U) Negative Normal NEGATIVE [facility] Comment on above: Performed By: #### C BC #### [facility] [address] [place] [address] Dr. Nehemiah Vargas Hemoglobin Ql (U) Negative Normal NEGATIVE [facility] Comment on above: Performed By: #### C BC #### [facility] [address] [place] [address] Dr. Nehemiah Vargas Ketones Ql (U) Negative Normal NEGATIVE [facility] Comment on above: Performed By: #### C BC #### [facility] [address] [place] [address] Dr. Nehemiah Vargas LEUKOCYTES Negative Normal NEGATIVE [facility] Comment on above: Performed By: #### C BC #### [facility] [address] [place] [address] Dr. Nehemiah Vargas Nitrite Ql (U) Negative Normal NEGATIVE [facility] Comment on above: Performed By: #### C BC #### [facility] [address] [place] [address] Dr. Nehemiah Vargas pH (U) 6.0 [pH] Normal 5-9 [facility] Comment on above: Performed By: #### C BC #### [facility] [address] [place] [address] Dr. Nehemiah Vargas Protein (U) [Mass/Vol] 30 mg/dL Abnormal NEGATIVE/ TRACE [facility] Comment on above: Performed By: #### C BC #### [facility] [address] [place] [address] Dr. Nehemiah Vargas SPEC GRAVITY >=1.030 Abnormal 1.005-<=1.025 [facility] Comment on above: Performed By: #### C BC #### [facility] [address] [place] [address] Dr. Nehemiah Vargas UR MICRO IND INDICATED Normal [facility] Comment on above: Performed By: #### C BC #### [facility] [address] [place] [address] Dr. Nehemiah Vargas Urobilinogen Qn (U) 0.2 {Stevenson'U}/dL Normal 0.2 - 1.0 [facility] Comment on above: Performed By: #### C BC #### [facility] [address] [place] [address] Dr. Nehemiah Vargas ETHANOL (BLD ALC)on 01-19-20 22 ALC NOTE NOTE: 80 mg/dl is e legal limit for a blood alcohol level Normal [facility] Comment on above: Performed By: #### C SADIE VALLEJO, ETH #### [facility] [address] [place] [address] Dr. Nehemiah Vargas Ethanol [Mass/Vol] mg/dL Normal [facility] Comment on above: Performed By: #### C SADIE VALLEJO, ETH #### [facility] [address] [place] [address] Dr. Nehemiah Vargas PROF 14(COMP METB)on 022 Albumin [Mass/Vol] 3.5 g/dL Normal 3.4-5.0 [facility] Comment on above: Performed By: #### C SADIE VALLEJO, ETH #### [facility] [address] [place] [address] Dr. Nehemiah Vargas Albumin/Globulin [Mass ratio] 1.2 {ratio} Normal [facility] Comment on above: Performed By: #### C SADIE VALLEJO, ETH #### [facility] [address] [place] [address] Dr. Nehemiah Vargas ALP [Catalytic activity/Vol] 94 U/L Normal 46-116 [facility] Comment on above: Performed By: #### C MADM, CMP, ETH #### [facility] [address] [address] [address] Nehemiah Vargas ALT [Catalytic activity/Vol] 25 U/L Normal 16-63 [facility] Comment on above: Performed By: #### C MADM, CMP, ETH #### [facility] [address] [place] [address] Dr. Nehemiah Vargas Anion gap [Moles/Vol] 10.3 mmol/L Normal [facility] Comment on above: Performed By: #### C MADM, CMP, ETH #### [facility] [address] [place] [address] Dr. Nehemiah Vargas AST [Catalytic activity/Vol] 18 U/L Normal 15-37 [facility] Comment on above: Performed By: #### C MADM, CMP, ETH #### [facility] [address] [place] [address] Dr. Nehemiah Vargas Bilirubin [Mass/Vol] 0.3 mg/dL Normal 0.2-1.0 [facility] Comment on above: Performed By: #### C MADM, CMP, ETH #### [facility] [address] [place] [address] Dr. Nehemiah Vargas Calcium [Mass/Vol] 8.4 mg/dL Critically low 8.5-10.1 [facility] Comment on above: Performed By: #### C MADM, CMP, ETH #### [facility] [address] [place] [address] Dr. Nehemiah Vargas Chloride [Moles/Vol] 98 mmol/L Normal 98-107 [facility] Comment on above: Performed By: #### C MADM, CMP, ETH #### [facility] [address] [place] [address] Dr. Nehemiah Vargas CO2 [Moles/Vol] 29.1 mmol/L Normal 21.0-32.0 [facility] Comment on above: Performed By: #### C MADM, CMP, ETH #### [facility] [address] [place] [address] Dr. Nehemiah Vargas Creatinine [Mass/Vol] 0.78 mg/dL Normal 0.70-1.30 [facility] Comment on above: Performed By: #### C SADIE VALLEJO, ETH #### [facility] [address] [address] [address] Nehemiah Vargas EGFR-AF HUNGARIAN >60 Normal >=60 [facility] Comment on above: Performed By: #### C GENEVIEVE CMP, ETH #### [facility] [address] [address] [address] Nehemiah Vargas EGFR-NON AF HUNGARIAN >60 Normal >=60 [facility] Comment on above: Performed By: #### C SADIE VALLEJO, ETH #### [facility] [address] [place] [address] Dr. Nehemiah Vargas Globulin (S) [Mass/Vol] 3.0 g/dL Normal [facility] Comment on above: Performed By: #### C SADIE VALLEJO, ETH #### [facility] [address] [place] [address] Dr. Nehemiah Vargas Glucose [Mass/Vol] 128 mg/dL Critically high 74-106 [facility] Comment on above: Performed By: #### C SADIE VALLEJO, ETH #### [facility] [address] [place] [address] Dr. Nehemiah Vargas Potassium [Moles/Vol] 4.4 mmol/L Normal 3.5-5.1 [facility] Comment on above: Performed By: #### C GENEVIEVE CMP, ETH #### [facility] [address] [place] [address] Dr. Nehemiah Vargas Protein [Mass/Vol] 6.5 g/dL Normal 6.4-8.2 [facility] Comment on above: Performed By: #### C GENEVIEVE CMP, ETH #### [facility] [address] [place] [address] Dr. Nehemiah Vargas Sodium [Moles/Vol] 133 mmol/L Critically low 136-145 [facility] Comment on above: Performed By: #### C GENEVIEVE CMP, ETH #### [facility] [address] [address] [address] Nehemiah Vargas Urea nitrogen [Mass/Vol] 7.0 mg/dL Normal 7.0-18.0 [facility] Comment on above: Performed By: #### C SADIE VALLEJO, ETH #### [facility] [address] [place] [address] Dr. Nehemiah Vargas Urea nitrogen/Creatinin e [Mass ratio] 9.0 mg/mg Normal [facility] Comment on above: Performed By: #### C SADIE VALLEJO, ETH #### [facility] [address] [address] [address] Nehemiah Vargas URINE MICROSCOPIC ONLYon BACTERIA NONE SEEN Normal NONE SEEN [facility] Comment on above: Performed By: #### C BC #### [facility] [address] [place] [address] Dr. Nehemiah Vargas Bacteria identified Cx Nom (U) NOT INDICATED Normal [facility] Comment on above: Performed By: #### C BC #### [facility] [address] [place] [address] Dr. Nehemiah Vargas CAST NONE SEEN Normal NONE SEEN [facility] Comment on above: Performed By: #### C BC #### [facility] [address] [place] [address] Dr. Nehemiah Vargas Crystals LM Nom (Urine sed) NONE SEEN Normal NONE SEEN [facility] Comment on above: Performed By: #### C BC #### [facility] [address] [place] [address] Dr. Nehemiah Vargas Epithelial cells LM Ql (Urine sed) NONE SEEN Normal NONE SEEN /RARE [facility] Comment on above: Performed By: #### C BC #### [facility] [address] [place] [address] Dr. Nehemiah Vargas MUCOUS TRACE Abnormal NONE SEEN [facility] Comment on above: Performed By: #### C BC #### [facility] [address] [place] [address] Dr. Nehemiah Vargas RBC NONE SEEN Abnormal 0-2 [facility] Comment on above: Performed By: #### C BC #### [facility] [address] [address] [address] Nehemiah Vargas WBC 0-2 Abnormal NONE SEEN [facility] Comment on above: Performed By: #### C BC #### [facility] [id number] Nehemiah Vargas CBC AUTO DIFFon 01-08-2022 BASO # 0.0 103/ul Normal 0.0-0.1 [facility] Comment on above: Performed By: #### C BC #### [facility] [address] [place] [address] Dr. Nehemiah Vargas Basophils/100 WBC (Bld) 0.3 % Normal 0.2-2.0 [facility] Comment on above: Performed By: #### C BC #### [facility] [address] [place] [address] Dr. Nehemiah Vargas EO # 0.1 103/ul Normal 0.0-0.7 [facility] Comment on above: Performed By: #### C BC #### [facility] [address] [place] [address] Dr. Nehemiah Vargas Eosinophils/100 WBC (Bld) 1.3 % Normal 0.9-7.0 [facility] Comment on above: Performed By: #### C BC #### [facility] [address] [place] [address] Dr. Nehemiah Vargas Erythrocyte distribution width (RBC) [Ratio] 12.6 % Normal 11.0-15.0 [facility] Comment on above: Performed By: #### C BC #### [facility] [address] [place] [address] Dr. Nehemiah Vargas Hematocrit (Bld) [Volume fraction] 44.9 % Normal 42.0-54.0 [facility] Comment on above: Performed By: #### C BC #### [facility] [address] [place] [address] Dr. Nehemiah Vargas Hemoglobin (Bld) [Mass/Vol] 14.8 g/dL Normal 14.0-18.0 [facility] Comment on above: Performed By: #### C BC #### [facility] [address] [place] [address] Dr. Nehemiah Vargas IG # 0.01 10e3/ul Normal 0.00-0.03 [facility] Comment on above: Performed By: #### C BC #### [facility] [address] [place] [address] Dr. Nehemiah Vargas IG % 0.1 % Normal 0.0-0.5 [facility] Comment on above: Performed By: #### C BC #### [facility] [address] [place] [address] Dr. Neheimah Vargas LYMPH # 1.7 103/ul Normal 1.2-3.8 [facility] Comment on above: Performed By: #### C BC #### [facility] [address] [place] [address] Dr. Nehemiah Vargas Lymphocytes/100 WBC (Bld) 25.0 % Normal 20.5-60.0 [facility] Comment on above: Performed By: #### C BC #### [facility] [address] [place] [address] Dr. Nehemiah Vargas MANUAL DIFF REQ NO Normal [facility] Comment on above: Performed By: #### C BC #### [facility] [address] [place] [address] Dr. Nehemiah Vargas MCH (RBC) [Entitic mass] 30.1 pg Normal 25.9-34.0 [facility] Comment on above: Performed By: #### C BC #### [facility] [address] [place] [address] Dr. Nehemiah Vargas MCHC (RBC) [Mass/Vol] 33.0 g/dL Normal 29.9-35.2 [facility] Comment on above: Performed By: #### C BC #### [facility] [address] [place] [address] Dr. Nehemiah Vargas MCV (RBC) [Entitic vol] 91.4 fL Normal 80.0-94.0 [facility] Comment on above: Performed By: #### C BC #### [facility] [address] [place] [address] Dr. Nehemiah Vargas MONO # 0.5 103/ul Normal 0.3-0.8 [facility] Comment on above: Performed By: #### C BC #### [facility] [address] [place] [address] Dr. Nehemiah Vargas Monocytes/100 WBC (Bld) 7.5 % Normal 1.7-12.0 [facility] Comment on above: Performed By: #### C BC #### [facility] [address] [place] [address] Dr. Nehemiah Vargas NEUT # 4.6 103/ul Normal 1.4-6.5 [facility] Comment on above: Performed By: #### C BC #### [facility] [address] [place] [address] Dr. Nehemiah Vargas Neutrophils/100 WBC (Bld) 65.8 % Normal 43.0-75.0 [facility] Comment on above: Performed By: #### C BC #### [facility] [address] [place] [address] Dr. Nehemiah Vargas Platelet mean volume (Bld) [Entitic vol] 9.7 fL Normal 9.5-13.5 [facility] Comment on above: Performed By: #### C BC #### [facility] [address] [place] [address] Dr. Nehemiah Vargas PLT 169 103/ul Normal 150-450 [facility] Comment on above: Performed By: #### C BC #### [facility] [address] [place] [address] Dr. Nehemiah Vargas RBC 4.91 106/ul Normal 4.70-6.10 [facility] Comment on above: Performed By: #### C BC #### [facility] [address] [place] [address] Dr. Nehemiah Vargas WBC 6.9 103/ul Normal 4.0-11.0 [facility] Comment on above: Performed By: #### C BC #### [facility] [address] [place] [address] Dr. Nehemiah Vargas PROF CHEM 8 (BAS METB)on Anion gap [Moles/Vol] 14.5 mmol/L Normal [facility] Comment on above: Performed By: #### C BC #### [facility] [address] [place] [address] Dr. Nehemiah Vargas Calcium [Mass/Vol] 8.9 mg/dL Normal 8.5-10.1 [facility] Comment on above: Performed By: #### C BC #### [facility] [address] [place] [address] Dr. Nehemiah Vargas Chloride [Moles/Vol] 98 mmol/L Normal 98-107 [facility] Comment on above: Performed By: #### C BC #### [facility] [address] [place] [address] Dr. Nehemiah Vargas CO2 [Moles/Vol] 24.4 mmol/L Normal 21.0-32.0 [facility] Comment on above: Performed By: #### C BC #### [facility] [address] [place] [address] Dr. Nehemiah Vargas Creatinine [Mass/Vol] 0.88 mg/dL Normal 0.70-1.30 [facility] Comment on above: Performed By: #### C BC #### [facility] [address] [place] [address] Dr. Nehemiah Vargas EGFR-AF HUNGARIAN >60 Normal >=60 [facility] Comment on above: Performed By: #### C BC #### [facility] [address] [place] [address] Dr. Nehemiah Vargas EGFR-NON AF HUNGARIAN >60 Normal >=60 [facility] Comment on above: Performed By: #### C BC #### [facility] [address] [place] [address] Dr. Nehemiah Vargas Glucose [Mass/Vol] 152 mg/dL Critically high 74-106 [facility] Comment on above: Performed By: #### C BC #### [facility] [address] [place] [address] Dr. Nehemiah Vargas Potassium [Moles/Vol] 3.9 mmol/L Normal 3.5-5.1 [facility] Comment on above: Performed By: #### C BC #### [facility] [address] [place] [address] Dr. Nehemiah Vargas Sodium [Moles/Vol] 133 mmol/L Critically low 136-145 [facility] Comment on above: Performed By: #### C BC #### [facility] [address] [place] [address] Dr. Nehemiah Vargas Urea nitrogen [Mass/Vol] 7.0 mg/dL Normal 7.0-18.0 [facility] Comment on above: Performed By: #### C BC #### [facility] [address] [place] [address] Dr. Nehemiah Vargas Urea nitrogen/Creatinin e [Mass ratio] 8.0 mg/mg Normal [facility] Comment on above: Performed By: #### C BC #### [facility] [address] [place] [address] Dr. Nehemiah Vargas CBC AUTO DIFFon 12-15-2021 BASO # 0.1 103/ul Normal 0.0-0.1 [facility] Comment on above: Performed By: #### C BC #### [facility] [address] [place] [address] Dr. Nehemiah Vargas Basophils/100 WBC (Bld) 0.5 % Normal 0.2-2.0 [facility] Comment on above: Performed By: #### C BC #### [facility] [address] [place] [address] Dr. Nehemiah Vargas EO # 0.2 103/ul Normal 0.0-0.7 [facility] Comment on above: Performed By: #### C BC #### [facility] [address] [place] [address] Dr. Nehemiah Vargas Eosinophils/100 WBC (Bld) 1.5 % Normal 0.9-7.0 [facility] Comment on above: Performed By: #### C BC #### [facility] [address] [place] [address] Dr. Nehemiah Vargas Erythrocyte distribution width (RBC) [Ratio] 12.9 % Normal 11.0-15.0 [facility] Comment on above: Performed By: #### C BC #### [facility] [address] [place] [address] Dr. Nehemiah Vargas Hematocrit (Bld) [Volume fraction] 47.2 % Normal 42.0-54.0 [facility] Comment on above: Performed By: #### C BC #### [facility] [address] [place] [address] Dr. Nehemiah Vargas Hemoglobin (Bld) [Mass/Vol] 15.6 g/dL Normal 14.0-18.0 [facility] Comment on above: Performed By: #### C BC #### [facility] [address] [place] [address] Dr. Nehemiah Vargas IG # 0.02 10e3/ul Normal 0.00-0.03 [facility] Comment on above: Performed By: #### C BC #### [facility] [address] [place] [address] Dr. Nehemiah Vargas IG % 0.2 % Normal 0.0-0.5 [facility] Comment on above: Performed By: #### C BC #### [facility] [address] [place] [address] Dr. Nehemiah Vargas LYMPH # 1.5 103/ul Normal 1.2-3.8 [facility] Comment on above: Performed By: #### C BC #### [facility] [address] [place] [address] Dr. Nehemiah Vargas Lymphocytes/100 WBC (Bld) 13.4 % Critically low 20.5-60.0 [facility] Comment on above: Performed By: #### C BC #### [facility] [address] [place] [address] Dr. Nehemiah Vargas MANUAL DIFF REQ NO Normal [facility] Comment on above: Performed By: #### C BC #### [facility] [address] [place] [address] Dr. Nehemiah Vargas MCH (RBC) [Entitic mass] 30.2 pg Normal 25.9-34.0 [facility] Comment on above: Performed By: #### C BC #### [facility] [address] [address] [address] Nehemiah Vargas MCHC (RBC) [Mass/Vol] 33.1 g/dL Normal 29.9-35.2 [facility] Comment on above: Performed By: #### C BC #### [facility] [address] [address] [address] Nehemiah Vargas MCV (RBC) [Entitic vol] 91.3 fL Normal 80.0-94.0 [facility] Comment on above: Performed By: #### C BC #### [facility] [address] [address] [address] Nehemiah Vargas MONO # 0.8 103/ul Normal 0.3-0.8 [facility] Comment on above: Performed By: #### C BC #### [facility] [address] [address] [address] Nehemiah Vargas Monocytes/100 WBC (Bld) 7.2 % Normal 1.7-12.0 [facility] Comment on above: Performed By: #### C BC #### [facility] [address] [address] [address] Nehemiah Vargas NEUT # 8.4 103/ul Critically high 1.4-6.5 [facility] Comment on above: Performed By: #### C BC #### [facility] [address] [address] [address] Nehemiah Vargas Neutrophils/100 WBC (Bld) 77.2 % Critically high 43.0-75.0 [facility] Comment on above: Performed By: #### C BC #### [facility] [address] [address] [address] Nehemiah Vargas Platelet mean volume (Bld) [Entitic vol] 9.3 fL Critically low 9.5-13.5 [facility] Comment on above: Performed By: #### C BC #### [facility] [address] [address] [address] Nehemiah Vargas PLT 171 103/ul Normal 150-450 [facility] Comment on above: Performed By: #### C BC #### [facility] [address] [place] [address] Dr. Nehemiah Vargas RBC 5.17 106/ul Normal 4.70-6.10 [facility] Comment on above: Performed By: #### C BC #### [facility] [address] [place] [address] Dr. Nehemiah Vargas WBC 10.9 103/ul Normal 4.0-11.0 [facility] Comment on above: Performed By: #### C BC #### [facility] [address] [place] [address] Dr. Nehemiah Vargas PROF 14(COMP METB)on 022 Albumin [Mass/Vol] 3.6 g/dL Normal 3.4-5.0 [facility] Comment on above: Performed By: #### C BC #### [facility] [address] [place] [address] Dr. Nehemiah Vargas Albumin/Globulin [Mass ratio] 1.2 {ratio} Normal [facility] Comment on above: Performed By: #### C BC #### [facility] [address] [place] [address] Dr. Nehemiah Vargas ALP [Catalytic activity/Vol] 105 U/L Normal 46-116 [facility] Comment on above: Performed By: #### C BC #### [facility] [address] [place] [address] Dr. Nehemiah Vargas ALT [Catalytic activity/Vol] 21 U/L Normal 16-63 [facility] Comment on above: Performed By: #### C BC #### [facility] [address] [place] [address] Dr. Nehemiah Vargas Anion gap [Moles/Vol] 11.4 mmol/L Normal [facility] Comment on above: Performed By: #### C BC #### [facility] [address] [place] [address] Dr. Nehemiah Vargas AST [Catalytic activity/Vol] 18 U/L Normal 15-37 [facility] Comment on above: Performed By: #### C BC #### [facility] [address] [place] [address] Dr. Nehemiah Vargas Bilirubin [Mass/Vol] 0.4 mg/dL Normal 0.2-1.0 [facility] Comment on above: Performed By: #### C BC #### [facility] [address] [address] [address] Nehemiah Vargas Calcium [Mass/Vol] 8.2 mg/dL Critically low 8.5-10.1 [facility] Comment on above: Performed By: #### C BC #### [facility] [address] [address] [address] Nehemiah Vargas Chloride [Moles/Vol] 96 mmol/L Critically low 98-107 [facility] Comment on above: Performed By: #### C BC #### [facility] [address] [place] [address] Dr. Nehemiah Vargas CO2 [Moles/Vol] 28.5 mmol/L Normal 21.0-32.0 [facility] Comment on above: Performed By: #### C BC #### [facility] [address] [place] [address] Dr. Nehemiah Vargas Creatinine [Mass/Vol] 0.88 mg/dL Normal 0.70-1.30 [facility] Comment on above: Performed By: #### C BC #### [facility] [address] [place] [address] Dr. Nehemiah Vargas EGFR-AF HUNGARIAN >60 Normal >=60 [facility] Comment on above: Performed By: #### C BC #### [facility] [address] [place] [address] Dr. Nehemiah Vargas EGFR-NON AF HUNGARIAN >60 Normal >=60 [facility] Comment on above: Performed By: #### C BC #### [facility] [address] [place] [address] Dr. Nehemiah Vargas Globulin (S) [Mass/Vol] 3.1 g/dL Normal [facility] Comment on above: Performed By: #### C BC #### [facility] [address] [place] [address] Dr. Nehemiah Vargas Glucose [Mass/Vol] 121 mg/dL Critically high 74-106 [facility] Comment on above: Performed By: #### C BC #### [facility] [address] [address] [address] Nehemiah Vargas Potassium [Moles/Vol] 3.9 mmol/L Normal 3.5-5.1 [facility] Comment on above: Performed By: #### C BC #### [facility] [address] [address] [address] Nehemiah Vargas Protein [Mass/Vol] 6.7 g/dL Normal 6.1-8.2 [facility] Comment on above: Performed By: #### C BC #### [facility] [address] [address] [address] Nehemiah Vargas Sodium [Moles/Vol] 132 mmol/L Critically low 136-145 [facility] Comment on above: Performed By: #### C BC #### [facility] [address] [address] [address] Nehemiah Vargas Urea nitrogen [Mass/Vol] 8.0 mg/dL Normal 7.0-18.0 [facility] Comment on above: Performed By: #### C BC #### [facility] [address] [address] [address] Nehemiah Vargas Urea nitrogen/Creatinin e [Mass ratio] 9.1 mg/mg Normal [facility] Comment on above: Performed By: #### C BC #### [facility] [address] [address] [address] Nehemiah Vargas Vital Signs Date Time Vital Sign Value Performing Clinician Facility 12-13-2023 10:20 Body height 190.5 cm MD Shaikh Schuster Work Phone: [facility] 12-13-2023 10:20-040 Body mass index (BMI) [Ratio] 20.3 kg/m2 MD Shaikh Schuster Work Phone: [facility] 12-13-2023 10:20040 Body weight 73.93 kg MD Shaikh Schuster Work Phone: [facility] 12-01-2023 14:25-0400 Diastolic blood pressure 99 mm[Hg] MD Shaikh Schuster Work Phone: [facility] 12-01-2023 14:25-0400 Heart rate 77 /min MD Shaikh Schuster Work Phone: [facility] 12-01-2023 14:25-0400 Systolic blood pressure 129 mm[Hg] MD Shaikh Schuster Work Phone: [facility] 12-01-2023 09:10-0400 Respiratory rate 18 /min MD Shaikh Schuster Work Phone: [facility] 12-01-2023 09:10-0400 SaO2% (BldA) [Mass fraction] 98 % MD Shaikh Schuster Work Phone: [facility] 06-20-2023 10:10-0400 Body height 190.5 cm MD Shaikh Schuster Work Phone: [facility] 06-20-2023 10:10-0400 Body weight 68.03 kg MD Shaikh Schuster Work Phone: [facility] 12-01-2021 11:20-0400 Body height 185.42 cm Js May Other [employer] Other 12-01-2021 11:20-0400 Body mass index (BMI) [Ratio] 21.77 kg/m2 Js May Other [employer] Other 12-01-2021 11:20-0400 Body weight 74.84 kg Js May Other [employer] Other 10-09-2021 08:25-0500 Body height 190.5 cm MD Shaikh Schuster Work Phone: [facility] 10-09-2021 08:25-0500 Body weight 72.57 kg MD Shaikh Schuster Work Phone: [facility] 06-02-2021 12:20-0400 Body height 185.42 cm Js May Other [employer] Other 06-02-2021 12:20-0400 Body mass index (BMI) [Ratio] 21.77 kg/m2 Js Jane Other [employer] Other 06-02-2021 12:20-0400 Body weight 74.84 kg Js Jane Other [employer] Other 06-02-2021 12:20-0400 Diastolic blood pressure 82 mm[Hg] Js May Other [employer] Other 06-02-2021 12:20-0400 Systolic blood pressure 138 mm[Hg] Js May Other [employer] Other Encounters Encounter Date Encounter Type Care Provider Facility Start: 12-13-2023 End: 12-13-2023 ambulatory MD Shaikh Schuster Work Phone: [facility] Work Phone: Start: 12-13-2023 End: 12-13-2023 Patient encounter procedure MD Shaikh Schuster Work Phone: [facility] Work Phone: Start: 12-12-2023 End: 12-12-2023 ambulatory Js May Facility:[facility] Start: 12-12-2023 End: 12-12-2023 ambulatory MD Shaikh Schuster Work Phone: [facility] Work Phone: Start: 12-12-2023 End: 12-12-2023 Patient encounter procedure MD Shaikh Schuster Work Phone: [facility] [place] Work Phone: Start: 12-07-2023 End: 12-07-2023 ambulatory OBEY LOWE Not Available Start: 12-01-2023 Registered Recurring MD Shaikh Schuster Work Phone: [facility] Work Phone: Start: 06-20-2023 End: 06-20-2023 ambulatory Obey Lowe Facility:[facility] Start: 06-20-2023 End: 06-20-2023 ambulatory MD Shaikh Schuster Work Phone: [facility] Work Phone: Start: 06-20-2023 End: 06-20-2023 Patient encounter procedure MD Shaikh Schuster Work Phone: [facility] [place] Work Phone: Start: 01-10-2023 End: 01-10-2023 ambulatory Obey Lowe Facility:[facility] Start: 11-29-2022 End: 11-29-2022 ambulatory MD Shaikh Schuster Work Phone: [facility] Work Phone: Start: 11-29-2022 End: 11-29-2022 Patient encounter procedure MD Shaikh Schuster Work Phone: [facility] [place] Work Phone: Start: 09-16-2022 End: 09-17-2022 ambulatory OBEY LOWE Facility:[facility] Start: 04-08-2022 End: 04-09-2022 ambulatory NITHYA RICKSBAGH Facility:[facility] Start: 02-04-2022 End: 02-06-[address] DOCTOR LYNN Facility:[facility] Start: 01-24-2022 End: 01-24-2022 ambulatory SHAIKH Andrea SCHUSTER Facility:[facility] Start: 01-22-2022 End: 01-22-[address] IZZY CHAMPAGNE Facility:[facility] Start: 01-19-2022 End: 01-20-2022 ambulatory SHAIKH Andrea SCHUSTER Facility:[facility] Start: 01-18-2022 End: 01-18-2022 ambulatory SALVADOR CHRISTIE Facility:[facility] Start: 01-08-2022 End: 01-08-2022 ambulatory MARIA ALEJANDRA FRANCOIS Facility:[facility] Start: 12-21-2021 End: 12-21-2021 Patient encounter procedure MD Shaikh Schuster Work Phone: [facility] [address] Start: 12-15-2021 End: 12-16-[address] IZZY VERGARA Facility:[facility] Start: 12-01-2021 End: 12-01-2021 ambulatory Js May Other [facility] [employer] Other Start: 12-01-2021 Office outpatient visit 25 minutes Js May [facility] [place] Start: 11-19-2021 End: 11-19-2021 Patient encounter procedure MD Shaikh Schuster Work Phone: [facility] Start: 10-15-2021 End: 10-16-[address] IZZY VERGARA Facility:[facility] Start: 10-09-2021 End: 10-09-2021 Patient encounter procedure MD Shaikh Schuster Work Phone: [facility] Start: 06-02-2021 Office outpatient visit 15 minutes Js May [facility] [place] Start: 06-02-2021 Telephone encounter Js May [facility] [place] Procedures Date Procedure Procedure Detail Performing Clinician Start: 12-12-2023 X-ray of lumbar spin e, four views MD Shaikh Schuster Work Phone: Start: 06-20-2023 MRI of cervical spin e with contrast MD Shaikh Schuster Work Phone: Start: 06-20-2023 MRI of thoracic spin e with contrast MD Shaikh Schuster Work Phone: Start: 11-29-2022 X-ray of lumbar spin e, four views MD Dubonikandrea Schuster Work Phone: Start: 12-21-2021 MRI of head MD Shaikh Schuster Work Phone: Start: 11-19-2021 X-ray of lumbar spin e, four views MD Shaikh Schuster Work Phone: Start: 10-09-2021 XR pre/post mri xray MD Shaikh Schuster Work Phone: Start: 10-09-2021 MRI of thoracic spin e with contrast MD Shaikh Schuster Work Phone: Start: 10-09-2021 MRI of cervical spin e with contrast MD Shaikh Schuster Work Phone: Payers Date Payer Category Payer Medicaid [id number] 1980 Unknown [id number] 2.16.84 [id number] 1980 Unknown [id number] 2.16.84 [id number] 1979 Unknown [id number] .16.84 [id number] 1979 Unknown [id number] .16.84 [id number] 1979 Unknown [id number] 2.16.84 [id number] 1979 Unknown [id number] 2.16.84 [id number] 1979 Unknown [id number] 2.16.84 [id number] 1979 Unknown [id number] 2.16.84 [id number] 1979 Unknown [id number] 2.16.84 [id number] 1979 Unknown [id number] 2.16.84 [id number] 1979 Unknown [id number] 2.16.84 [id number] 1959 Unknown [id number] Self-pay Self Pay [id number] Social History Date Type Detail Facility Start: 12-01-2020 Tobacco smoking status NHIS Ex-smoker (finding) [facility] Start: 1980 Sex Assigned At Male F [facility] Sex Assigned At Sex Assigned At Bir [facility] [employer] Other Medical Equipment Procedure Code Equipment Code Equipment Origin al Text Equipment Identifier Dates Discectomy, lumbar ADHERUS DURAL SEALANT FDA Start: 11-09-2017 Discectomy, lumbar ADHERUS DURAL SEALANT FDA Start: 11-09-2017 Discectomy, lumbar ADHERUS DURAL SEALANT FDA Start: 11-09-2017 Discectomy, lumbar ADHERUS DURAL SEALANT FDA Start: 11-09-2017 Discectomy, lumbar ADHERUS DURAL SEALANT FDA Start: 11-09-2017 Spinal fusion graft kit [id number] FDA Start: 12-01-2020 Bone-screw internal spinal fixation system, non-sterile [id number] FDA Start: 12-01-2020 Bone-screw internal spinal fixation system, non-sterile [id number] FDA Start: 12-01-2020 Polymeric spinal fusion cage, non-sterile [id number] FDA Start: 12-01-2020 Bone-screw internal spinal fixation system, non-sterile [id number] FDA Start: 12-01-2020 Evaluation note 04-12-2022 Note Date & Type Note Facility 12-01-2021 [...] the active MS that this patient has. [employer] Other Evaluation note 06-02-2021 Note Date & [...] M51.36) May, Multiple sclerosis (ICD-10 - G35) [employer] Other Evaluation note Note Date & Type Note Facility [facility] Evaluation note Note Date & Type Note Facility Evaluation note No Information [employer] Other History general Narrative - Reported Note Date & Type Note Facility History general Narrative - Reported Type Medical History multiple sclerosis Medical History Patient was born with one kidney Medical History degenerative disc disease Medical History anxiety Medical History depression Surgical History lumbar laminectomy Surgical History Chest tube Surgical History nephrectomy Hospitalization History See Above [employer] Other History general Narrative - Reported Note [...] Lumbar fusion-Doctor May Hospitalization History See Above [employer] Other Chief Complaint and Reason for Visit Chief Complaint g35 m47.817 g35 Chief Complaint M54.16. Chief Complaint g35 Chief Complaint MS M51.36 Chief Complaint MS M51.36 YEARLY F/U PLIF W/X-RAY Family History No Family History Records Found Relationship Condition Age at Onset Recorded Date/T jazmine father Hypertension Unknown Not Specified Autoimmune disease Unknown Relationship Condition Age at Onset Recorded Date/T jazmine father Hypertension Unknown Not Specified Autoimmune disease Unknown Not Specified Family history of mental disorder Unknow n Advance Directives No Advanced Directives Records Found Advance Directive Response Recorded Date/ Time Advance Directives No September 11:18am Summary Purpose Additional Source Comments Care Teams (unrecognized sec tion and content) Team Status: Active Member Role Status Dates Shaikh Carl MD Primary Care Provider Active Team Status: Active Member Role Status Dates Shaikh Carl MD Primary Care Provider Active Start: December 01, 2023 Obey Lopez PA-C Attending Provider, Referring Provider Active Start: December 01, 2023 Team Status: Inactive Member Role Status Dates Shaikh Carl MD Primary Care Provider Active Start: December 12, 2023 End: December 12, 2023 Js May MD Attending Provider Active Star t: December 12, 2023 End: December 12, 2023 Team Status: Inactive Member Role Status Dates Shaikh Carl MD Primary Care Provider Active Js May MD Attending Provider Active Team Status: Inactive Member Role Status Dates Shaikh Carl MD Primary Care Provider Active Obey Lopez PA-C Attending Provider Active Team Status: Inactive Member Role Status Dates Shaikh aCrl MD Primary Care Provider Active Vanda Camarena PA-C Attending Provider Active Team Status: Inactive Member Role Status Dates Shaikh Carl MD Primary Care Provider Active Start: December 13, 2023 End: December 13, 2023 Js May MD Attending Provider Active Star t: December 13, 2023 End: December 13, 2023 Goals (unrecognized section and content) Goals may be documented in a n alternate sectionNo InformationNo InformationNo InformationGoals may be documented in an alternate sectionGoals may be documented in an alternate sectionGoals may be documented in an alternate sectionGoals may be documented in an alternate section REASON FOR VISIT (unrecogniz ed section and content) XR6 months po XLIF6 month Fo llow up neck, 1 YEAR PO XLIF (unrecognized sect ion and content) No Status Records FoundNo Status Records FoundNo Status Records Found INFORMATION SOURCE (unrecogn ized section and content) DATE CREATED AUTHOR 09/18/2022 [facility] DATE CREATED AUTHOR AUTHOR'S ORGANIZ ATION 12/08/2023 [facility] EPIC DATE CREATED AUTHOR AUTHOR'S ORGANIZ ATION 12/13/2023 [facility] FOR RECORDS PERTAINING TO PATIENTS WHO ARE [...] BE BASED ON THE PRIMARY CLINICAL RECORDS. [facility] [employer] provides no warranty or guarantee of the accuracy or completeness of information in this document.
== END 2024-01-09 12:24 | disposition home or self-care (01) ==
LOC: EC 12:23
PROVIDERS: PCP Internal Medicine; Visit Provider Orthopaedic Surgery
DX: M25.512 Pain in left shoulder (principal); S42.215A Unspecified nondisplaced fracture of surgical neck of left humerus, initial encounter for closed fracture
CPT/HCPCS: 73030

== ENCOUNTER 2024-02-06 10:56 | Outpatient (OUT) | payer OTHER, SELFPAY ==
--- NOTE | 2024-02-06 | XR_ITS ---
The [address] [address] Patient Name: TAVIA CANALES MRN: [id number] date: 1980 Sex: M Assigned Patient Location: Current Patient Location: Accession/Order Number: [id number] Exam Date: 02/06/2024 11:08 Report Date: 02/07/2024 10:12 At the request of: IZZY KESSLER Procedure: XR shoulder LT min 2V PROCEDURE: XR shoulder LT min 2V HISTORY: LEFT SHOULDER PAIN COMPARISON: XR shoulder left 01/09/2024 FINDINGS: BONES:Mildly displaced fracture through surgical neck of left humerus with developing callus formation along the margins. Humeral head remains seated within the glenoid. Unremarkable acromioclavicular joint. SOFT TISSUES:No visible soft tissue swelling. EFFUSION:None visible. OTHER: Negative. XR/XR shoulder LT min 2V IMPRESSION: 1. Stable alignment and ongoing bone healing of proximal left humerus fracture. Electronically authenticated by: IZZY CHAMPAGNE Date: 02/07/2024 10:12
== END 2024-02-06 10:57 | disposition home or self-care (01) ==
LOC: EC 10:56
PROVIDERS: PCP Internal Medicine; Visit Provider Orthopaedic Surgery
DX: S42.295D Other nondisplaced fracture of upper end of left humerus, subsequent encounter for fracture with routine healing (principal)
CPT/HCPCS: 73030

== ENCOUNTER 2024-03-05 10:50 | Outpatient (OUT) | payer OTHER, SELFPAY ==
--- NOTE | 2024-03-05 | XR_ITS ---
The [address] [address] Patient Name: TAVIA CANALES MRN: [id number] date: 1980 Sex: M Assigned Patient Location: Current Patient Location: Accession/Order Number: [id number] Exam Date: 03/05/2024 10:50 Report Date: 03/06/2024 15:09 At the request of: IZZY KESSLER Procedure: XR shoulder LT min 2V PROCEDURE: XR shoulder LT min 2V COMPARISON: 02/06/2024 HISTORY: LEFT SHOULDER PAIN FINDINGS: BONES:Stable healing complex fracture of the left humeral neck evidenced by sclerosis and periosteal reaction with partial bony bridging. The acromioclavicular and glenohumeral joints are intact SOFT TISSUES:Negative. No visible soft tissue swelling. EFFUSION:None visible. OTHER: Negative. XR/XR shoulder LT min 2V IMPRESSION: Stable healing complex fracture of the left humeral neck Electronically authenticated by: APARNA VILLASEÑOR Date: 03/06/2024 15:09
== END 2024-03-05 10:51 | disposition home or self-care (01) ==
LOC: EC 10:50
PROVIDERS: PCP Internal Medicine; Visit Provider Orthopaedic Surgery
DX: S42.295D Other nondisplaced fracture of upper end of left humerus, subsequent encounter for fracture with routine healing (principal)
CPT/HCPCS: 73030

== ENCOUNTER 2024-03-23 11:36 | Outpatient (OUT) | payer OTHER, SELFPAY ==
[2024-03-23 12:35] LABS: Free T3 2.36 pg/mL (2.18-3.98)
[2024-03-23 12:53] LABS: Free T4 0.73 ng/dL (0.76-1.46)
== END 2024-03-23 11:37 | disposition home or self-care (01) ==
LOC: LAB 11:37
PROVIDERS: PCP Internal Medicine; Visit Provider Internal Medicine
DX: R94.6 Abnormal results of thyroid function studies (principal); E55.9 Vitamin D deficiency, unspecified
CPT/HCPCS: 36415; 82306; 84439; 84443; 84481

== ENCOUNTER 2024-04-03 13:26 | Outpatient (OUT) | payer OTHER, SELFPAY ==
[2024-04-03 13:41] LABS: Basophils Absolute Auto 0.1 10^3/uL (0.0-0.1); Basophils Percent Auto 0.7 % (0.2-2.0); Eosinophils Absolute Auto 0.1 10^3/uL (0.0-0.7); Eosinophils Percent Auto 1.2 % (0.9-7.0); Hematocrit 48.7 % (42.0-54.0); Hemoglobin 16.3 g/dL (14.0-18.0); Immature Granulocytes Abs Auto 0.02 10^3/uL (0.00-0.03); Immature Granulocytes Pct Auto 0.2 % (0.0-0.5); Lymphocytes Absolute Auto 2.5 10^3/uL (1.2-3.8); Lymphocytes Percent Auto 29.2 % (20.5-60.0); Mean Corpuscular HGB Conc 33.5 g/dL (29.9-35.2); Mean Corpuscular Hemoglobin 30.1 pg (25.9-34.0); Mean Platelet Volume 8.8 fL (9.5-13.5); Monocytes Absolute Auto 0.6 10^3/uL (0.3-0.8); Monocytes Percent Auto 6.9 % (1.7-12.0); Neutrophils Absolute Auto 5.2 10^3/uL (1.4-6.5); Neutrophils Percent Auto 61.8 % (43.0-75.0); Platelet Count 246 10^3/uL (150-450); Red Blood Count 5.41 10^6/uL (4.70-6.10); Red Cell Distribution Width 12.3 % (11.0-15.0); White Blood Count 8.4 10^3/uL (4.0-11.0)
[2024-04-03 15:32] LABS: Alanine Aminotransferase 23 U/L (16-63); Albumin Globulin Ratio 1.1; Albumin Level 3.7 g/dL (3.4-5.0); Alkaline Phosphatase 120 U/L (46-116); Anion Gap 8.3; Aspartate Amino Transferase 16 U/L (15-37); BUN Creatinine Ratio 7.3; Bilirubin Total 0.4 mg/dL (0.2-1.0); Carbon Dioxide 30.5 mmol/L (21.0-32.0); Chloride 102 mmol/L (98-107); Estimated GFR (African America >60 (>=60); Estimated GFR (Non-African Ame >60 (>=60); Globulin 3.4 g/dL; Glucose 96 mg/dL (74-106); Potassium 3.8 mmol/L (3.5-5.1); Sodium 137 mmol/L (136-145); Total Protein 7.1 g/dL (6.4-8.2)
== END 2024-04-03 13:27 | disposition home or self-care (01) ==
LOC: LAB 13:28
PROVIDERS: Visit Provider Physician Assistant
DX: G35 Multiple sclerosis (principal)
CPT/HCPCS: 36415; 80053; 85025

== ENCOUNTER 2024-04-09 09:57 | Outpatient (OUT) | payer OTHER, SELFPAY ==
--- NOTE | 2024-04-09 | XR_ITS ---
The [address] [address] Patient Name: TAVIA CANALES MRN: [id number] date: 1980 Sex: M Assigned Patient Location: Current Patient Location: Accession/Order Number: [id number] Exam Date: 04/09/2024 10:00 Report Date: 04/11/2024 04:37 At the request of: IZZY KESSLER Procedure: XR shoulder LT min 2V PROCEDURE: XR shoulder LT min 2V HISTORY: LEFT SHOULDER PAIN COMPARISON: XR shoulder left 03/05/2024 FINDINGS: BONES:Prior humeral neck fracture with slight offset. Stable alignment and ongoing bone healing. Humeral head remains within the glenoid. SOFT TISSUES:No visible soft tissue swelling. EFFUSION:None visible. OTHER: Negative. XR/XR shoulder LT min 2V IMPRESSION: 1. Stable alignment and ongoing bone healing of mildly displaced left humeral neck fracture. Electronically authenticated by: IZZY CHAMPAGNE Date: 04/11/2024 04:37
--- OUTSIDE RECORDS SUMMARY | 2024-04-09 10:17 | XMS_ITS | CCD ---
Author Organization [facility] Care Team Providers Care Felt Pad Cutter Name Role Phone MD Tracey Schuster Primary Care Provider WALDO Lopez Attending Provider MD Js May Attending Provider [phone] WALDO Camarena Attending Provider [phone] Js May Unavailable OBEY LOPEZ Attending Unavailable OBEY LOPEZ Consulting Unavailable FAWWAD, WEBB H Primary Care Unavailable OBEY LOPEZ Admitting Unavailable BENEDICT, DR MAGANA Attending Unavailable BENEDICT, DR MAGANA Admitting Unavailable FAWWAD, WEBB H Primary Care Unavailable MARIA ALEJANDRA FRANCOIS Admitting Unavailable MARIA ALEJANDRA FRANCOIS Attending Unavailable ALESSANDRO MARIA ALEJANDRA Consulting Unavailable FAWWAD, WEBB H Primary Care Unavailable SHAHNAZANTONIAID Consulting Unavailable FAWWAD, WEBB H Primary Care Unavailable SALVADOR CHRISTIE Admitting Unavailable SALVADOR CHRSITIE Attending Unavailable ZIEBFRIEDA, DR IZZY Giron Consulting Unavailable PAY, DR KENYON Admitting Unavailable PAY, DR KENYON Attending Unavailable FAWWAD, WEBB H Primary Care Unavailable PAY, DR KENYON Consulting Unavailable FAWWAD, WEBB H Primary Care Unavailable SHAHNAZ SALVADOR Consulting Unavailable SHAHNAZSALVADOR Admitting Unavailable SALVADOR CHRISTIE Attending Unavailable MISC, DR SAVAGE Consulting Unavailable REQUEST, DR FIELDS LISTED Primary Care Unavaila ble MISC, DR SAVAGE Admitting Unavailable MISC, DR SAVAGE Attending Unavailable BENEDICT, DR MAGANA Admitting Unavailable BENEDICT, DR MAGANA Attending Unavailable VANDA CAMARENA Consulting Unavailable FAWWAD, WEBB H Primary Care Unavailable FAWWAD, WEBB H Primary Care Unavailable FAWWAD, WEBB H Consulting Unavailable FAWWAD, WEBB H Admitting Unavailable SHAIKH Farida SCHUSTER Attending Unavailable NITHYA MUNOZ Consulting Unavailable NITHYA MUNOZ Admitting Unavailable NITHYA MUNOZ Attending Unavailable SHAIKH SCHUSTER Primary Care Unavailable MD Tracey Schuster Primary Care Provider MD Js May Attending Provider MD Tracey Schuster Primary Care Provider WALDO Lopez Attending Provider MD Tracey Schuster Primary Care Provider WALDO Lopez Attending Provider WALDO Lopez Referring Provider MD Js May Attending Provider OBEY LOPEZ Attending Unavailable VANDA WOLFE Attending Unavailable MD Tracey Schuster Primary Care Provider WALDO Wolfe Attending Provider Obey Lopez Admitting Unavailable Obey Lopez Attending Unavailable Shaikh Schuster Primary Care Unavailable Js May Admitting Unavailable Js May Attending Unavailable Jagdish Schusterikh [facility] Unavailable Vanda Wolfe Admitting Unavailable Vanda Wolfe Attending Unavailable Jagdish Schusterikh [facility] Unavailable Allergies Allergy Classification Reported Allergen(s) Allergy Type Date of Onset Reaction(s) Facility (6 sources) NSAIDs Propensity to adverse reactions 04-16-20 20 Contraindicated R/T 1 kidney [facility] (7 sources) Penicillins; Translations: [Penicillins] Propensity to adverse reactions 04-06-20 15 Vomiting, Vomiting, N/V [facility] (6 sources) penicillAMINE Drug Allergy 12-01-19 23 Unknown, Unknown Reaction [facility] (6 sources) Anti-Inflammator y Enzyme Drug allergy 12-01-19 23 Unknown, Unknown Reaction [facility] (1 source) Penicillin Drug Allergy N/V [facility] Other Medications Current Medications Medication Drug Class(es) Dates Sig (Normalized) Sig (Original) cyclobenzaprine hydrochloride 10 mg oral tablet (18 sources) Muscle Relaxant Start: 12-03-2020 take 10 [...] DULoxetine 60 mg delayed release oral capsule (15 sources) Serotonin and Norepinephrine Reuptake Inhibitor Start: 10-04-2017 take 30 mg by mouth at bedtime Duloxetine Active 30 MG PO Bedtime October 04, 2017 1:00am Start: 10-04-2017 take 60 mg by mouth once daily in the morning Duloxetine Active 60 MG PO Every morning October 04, 2017 1:00am gabapentin 600 mg oral tablet (20 sources) Anti-epileptic Agent Start: 11-25-2020 take 700 [...] succinate 25 mg extended release oral tablet (9 sources) beta-Adrenergic Milka Start: 04-08-2020 take 25 mg by mouth once daily Metoprolol Succinate Active 25 MG PO Daily April 08, 2020 12:00am 10 ml ocrelizumab 30 mg/ml injection (2 sources) Start: 12-13-2023 take 30 mg intravenously every other week Ocrelizumab (Ocrevus) 30 mg/mL solution Active 300 MG IV EVERY 2 WEEKS December 13, 2023 12:00am OXcarbazepine 300 mg oral tablet (9 sources) Anti-epileptic Agent Start: 04-08-2020 take 1 [...] Discontinued 40 MG PO Every morning 10 October 04, 2017 1:00am November 02, 2017 11:06am administer with food or milk QUEtiapine 300 mg oral tablet (15 sources) Atypical Antipsychotic Start: 04-08-2020 take 300 [...] / oxyCODONE hydrochloride 5 mg oral tablet (12 sources) Opioid Agonist Start: 10-04-2017 End: 11-09-2017 take 1 tablet by mouth every four to six hours Oxycodone-Acetamino phen (Percocet) 5-325 mg tablet Discontinued 1 TAB PO EVERY 4-6 HOURS November 02, 2017 11:44am November 09, 2017 2:20pm cholecalciferol 0.025 mg oral capsule (6 sources) Vitamin D Start: 10-04-2017 End: 04-08-2020 take 1 capsule by mouth once Cholecalciferol (Vitamin D3) (Vitamin D3) 1,000 unit Capsule Discontinued 1000 UNIT PO Once October 04, 2017 1:00am April 08, 2020 10:56am 1 ml glatiramer acetate 20 mg/ml prefilled syringe (6 sources) Start: 10-04-2017 End: 04-08-2020 inject 20 mg by subcutaneous injection once daily Glatiramer (Glatopa) 20 mg/mL syringe Discontinued 20 MG SUBCUT Daily October 04, 2017 1:00am April 08, 2020 10:57am sulfamethoxazole 800 mg / trimethoprim 160 mg oral tablet (12 sources) Dihydrofolate Reductase Inhibitor Antibacterial, Sulfonamide Antimicrobial [...] 2020 10:57am teriflunomide 14 mg oral tablet (6 sources) Pyrimidine Synthesis Inhibitor Start: 04-08-2020 End: 12-13-2023 take 1 tablet by mouth once daily Teriflunomide (Aubagio) 14 mg tablet Discontinued 14 MG PO Daily April 08, 2020 12:00am December 13, 2023 10:23am tiZANidine 4 mg oral tablet (9 sources) Central alpha-2 Adrenergic Agonist Start: 04-08-2020 [...] COUNT UNS] Onset: 01-25-2022 Chronic Multiple sclerosis (17 sources) Multiple sclerosis; Translations: [Multiple sclerosis] Onset: 06-02-2021 Resolved: 12-01-2021 11-26-2020 Chronic Other connective tissue disease (1 source) History of lumbar fusion; Translations: [Arthrodesis status] 12-13-2023 Episodic Other nervous system disorders (4 sources) Chronic pain; Translations: [Other chronic pain] Chronic Spondylosis; intervertebral disc disorders; other back problems (16 sources) Prolapsed lumbar intervertebral disc; Translations: [Other [...] 01-26-2022 Episodic Other aftercare (1 source) 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; Translations: [OTH HALFWAY CURRENT DRUG THERAPY] Onset: 02-01-2022 Episodic Other [...] Value Interpretation Reference Range Facil ity MR head/brain wo/w conon MR head/brain wo/w con [facility] [place] [address] MRI Report Signed Patient: Alexis Negrete II MR#: [id number] : 1980 Acct:[id number] Age/Sex: 43 / M ADM Date: 03/21/24 Loc: MR Room: Type: [facility] Attending Dr: Vanda Wolfe PA-C Copies to: Vanda Wolfe PA-C Ordering Provider: Vanda Wolfe PA-C Date of Service: 03/21/24 MR/MR head/brain wo/w con: G35 MRI the Brain with and without contrast TECHNIQUE: Multiplanar T1 and T2-weighted imaging of the brain. 14 cc of ProHance HISTORY: Reassessment for multiple sclerosis. COMPARISON: 01/08/23 VENTRICLES: Unremarkable BRAIN VOLUME: Similar volume of brain parenchyma identified. BRAIN PARENCHYMAL SIGNAL INTENSITY: Redemonstration of multiple foci of T2/FLAIR hyperintense signal involving the corpus callosum, periventricular white matter, subcortical white matter similar prior examination. This also involvement of the upper cervical spine cord. No interval change. No enlarging or new lesions. BLEED: None MASS EFFECT: No mass effect DIFFUSION RESTRICTION: None GRADIENT ECHO PARENCHYMAL SIGNAL LOSS: None MIDBRAIN: The midbrain structures are unremarkable. MARIA E: Unremarkable MEDULLA: Unremarkable INTERNAL AUDITORY CANALS: Unremarkable SINUSES: Opacification of the maxillary sinuses. Opacification of ethmoid and sphenoid and frontal sinuses. ORBITS: Grossly unremarkable MASTOIDS: Unremarkable ENHANCEMENT: No pathologic enhancement. MR/MR head/brain wo/w con IMPRESSION: No acute intracranial process. Findings consistent with demyelinating disease without significant interval change. No diffusion restriction or abnormal postcontrast enhancement to suggest active demyelination. Impression dictated by: Wyatt Ramos M.D.03/22/2024 8:31 AM Dictation Location: [place] [address] Transcribed By: [facility] 03/22/24830 Dictated By: Wyatt Ramos DO 03/21/241923 Signed By: 03/22/24830 Normal The Replaced By [facility] XR lumbar spine AP/LAT/FLX/E XTon 12-12-2023 XR lumbar spine AP/LAT/FLX/EXT [facility] [place] [address] [place] [address] XRay Report Signed Patient: Alexis Negrete II MR#: [id number] : 1980 Acct:[id number] Age/Sex: 43 / M ADM Date: 12/12/23 Loc: XD Room: Type: [facility] Attending Dr: Js May MD Copies to: [...] Heidi Richardson M.D.12/12/2023 8:25 PM Dictation Location: [place] [address] Transcribed By: [facility] 12/12/232024 Dictated By: Heidi Richardson II, MD 12/12/232023 Signed By: 12/12/232024 Normal The Replaced By [facility] MR cervical spine wo/w conon 06-20-2023 MR cervical spine wo/w con [facility] [place] [address] [place] [address] MRI Report Signed Patient: Alexis Negrete II MR#: [id number] : 1980 Acct:[id number] Age/Sex: 42 / M ADM Date: 06/20/23 Loc: Room: Type: [facility] Attending Dr: Obey Lopez PA-C Copies to: [...] Heidi Richardson M.D.06/20/2023 1:44 PM Dictation Location: [place] [address] Transcribed By: [facility] 06/20/23 1344 Dictated By: Heidi Richardson II, MD 06/20/23 1338 Signed By: 06/20/23 1344 Normal The Replaced By [facility] MR thoracic spine wo/w tonya 06-20-2023 MR thoracic spine wo/w con [facility] [place] [address] [place] [address] MRI Report Signed Patient: Alexis Negrete II MR#: [id number] : 1980 Acct:[id number] Age/Sex: 42 / M ADM Date: 06/20/23 Loc: MR Room: Type: [facility] Attending Dr: Obey Lopez PA-C Copies to: [...] Heidi Richardson M.D.06/20/2023 1:37 PM Dictation Location: [place] [address] Transcribed By: CELINA 06/20/231336 Dictated By: Heidi Richardson II, MD 06/20/231330 Signed By: 06/20/231336 Normal The Replaced By [facility] CBC AUTO DIFFon 09-16-2022 BASO # 0.0 103/ul Normal 0.0-0.1 [facility] Comment on above: Performed By: #### C BC #### [facility] [address] [place] [address] [address] Nehemiah Vargas Basophils/100 WBC (Bld) 0.5 % Normal 0.2-2.0 [facility] Comment on above: Performed By: #### C BC #### [facility] [address] [place] [address] [address] Nehemiah Vargas EO # 0.0 103/ul Normal 0.0-0.7 [facility] Comment on above: Performed By: #### C BC #### [facility] [address] [place] [address] [address] Nehemiah Vargas Eosinophils/100 WBC (Bld) 0.5 % Critically low 0.9-7.0 [facility] Comment on above: Performed By: #### C BC #### [facility] [address] [place] [address] [address] Nehemiah Vargas Erythrocyte distribution width (RBC) [Ratio] 13.2 % Normal 11.0-15.0 [facility] Comment on above: Performed By: #### C BC #### [facility] [address] [place] [address] [address] Nehemiah Vargas Hematocrit (Bld) [Volume fraction] 50.1 % Normal 42.0-54.0 [facility] Comment on above: Performed By: #### C BC #### [facility] [address] [place] [address] [address] Nehemiah Vargas Hemoglobin (Bld) [Mass/Vol] 15.2 g/dL Normal 14.0-18.0 [facility] Comment on above: Performed By: #### C BC #### [facility] [address] [place] [address] Dr. Nehemiah Vargas IG # 0.02 10e3/ul Normal 0.00-0.03 [facility] Comment on above: Performed By: #### C BC #### [facility] [address] [place] [address] Dr. Nehemiah Vargas IG % 0.3 % Normal 0.0-0.5 [facility] Comment on above: Performed By: #### C BC #### [facility] [address] [place] [address] Dr. Nehemiah Vargas LYMPH # 1.8 103/ul Normal 1.2-3.8 [facility] Comment on above: Performed By: #### C BC #### [facility] [address] [place] [address] Dr. Nehemiah Vargas Lymphocytes/100 WBC (Bld) 22.9 % Normal 20.5-60.0 [facility] Comment on above: Performed By: #### C BC #### [facility] [address] [place] [address] Dr. Nehemiah Vargas MANUAL DIFF REQ NO Normal [facility] Comment on above: Performed By: #### C BC #### [facility] [address] [place] [address] Dr. Nehemiah Vargas MCH (RBC) [Entitic mass] 29.9 pg Normal 25.9-34.0 [facility] Comment on above: Performed By: #### C BC #### [facility] [address] [place] [address] Dr. Nehemiah Vargas MCHC (RBC) [Mass/Vol] 30.3 g/dL Normal 29.9-35.2 [facility] Comment on above: Performed By: #### C BC #### [facility] [address] [place] [address] Dr. Nehemiah Vargas MCV (RBC) [Entitic vol] 98.4 fL Critically high 80.0-94.0 [facility] Comment on above: Performed By: #### C BC #### [facility] [address] [place] [address] Dr. Nehemiah Vargas MONO # 0.5 103/ul Normal 0.3-0.8 [facility] Comment on above: Performed By: #### C BC #### [facility] [address] [place] [address] [address] Nehemiah Vargas Monocytes/100 WBC (Bld) 6.7 % Normal 1.7-12.0 [facility] Comment on above: Performed By: #### C BC #### [facility] [address] [place] [address] Dr. Nehemiah Vargas NEUT # 5.5 103/ul Normal 1.4-6.5 [facility] Comment on above: Performed By: #### C BC #### [facility] [address] [place] [address] Dr. Nehemiah Vargas Neutrophils/100 WBC (Bld) 69.1 % Normal 43.0-75.0 [facility] Comment on above: Performed By: #### C BC #### [facility] [address] [place] [address] Dr. Nehemiah Vargas Platelet mean volume (Bld) [Entitic vol] 10.1 fL Normal 9.5-13.5 [facility] Comment on above: Performed By: #### C BC #### [facility] [address] [place] [address] Dr. Nehemiah Vargas PLT 159 103/ul Normal 150-450 [facility] Comment on above: Performed By: #### C BC #### [facility] [address] [place] [address] Dr. Nehemiah Vargas RBC 5.09 106/ul Normal 4.70-6.10 [facility] Comment on above: Performed By: #### C BC #### [facility] [address] [place] [address] Dr. Nehemiah Vargas WBC 7.9 103/ul Normal 4.0-11.0 [facility] Comment on above: Performed By: #### C BC #### [facility] [address] [place] [address] Dr. Nehemiah Vargas PROF 14(COMP METB)on 023 Albumin [Mass/Vol] 3.9 g/dL Normal 3.4-5.0 [facility] Comment on above: Performed By: #### C MP #### [facility] [address] [place] [address] [address] Nehemiah Vargas Albumin/Globulin [Mass ratio] 1.2 {ratio} Normal [facility] Comment on above: Performed By: #### C MP #### [facility] [address] [place] [address] [address] Nehemiah Vargas ALP [Catalytic activity/Vol] 118 U/L Critically high 46-116 [facility] Comment on above: Performed By: #### C MP #### [facility] [address] [place] [address] Dr. Nehemiah Vargas ALT [Catalytic activity/Vol] 25 U/L Normal 16-63 [facility] Comment on above: Performed By: #### C MP #### [facility] [address] [place] [address] [address] Nehemiah Vargas Anion gap [Moles/Vol] 11.7 mmol/L Normal [facility] Comment on above: Performed By: #### C MP #### [facility] [address] [place] [address] Dr. Nehemiah Vargas AST [Catalytic activity/Vol] 24 U/L Normal 15-37 [facility] Comment on above: Performed By: #### C MP #### [facility] [address] [place] [address] [address] Nehemiah Vargas Bilirubin [Mass/Vol] 0.5 mg/dL Normal 0.2-1.0 [facility] Comment on above: Performed By: #### C MP #### [facility] [address] [place] [address] [address] Nehemiah Vargas Calcium [Mass/Vol] 8.8 mg/dL Normal 8.5-10.1 [facility] Comment on above: Performed By: #### C MP #### [facility] [address] [place] [address] Dr. Nehemiah Vargas Chloride [Moles/Vol] 101 mmol/L Normal 98-107 [facility] Comment on above: Performed By: #### C MP #### [facility] [address] [place] [address] [address] Nehemiah Vargas CO2 [Moles/Vol] 30.4 mmol/L Normal 21.0-32.0 [facility] Comment on above: Performed By: #### C MP #### [facility] [address] [place] [address] [address] Nehemiah Vargas Creatinine [Mass/Vol] 0.86 mg/dL Normal 0.70-1.30 [facility] Comment on above: Performed By: #### C MP #### [facility] [address] [place] [address] Dr. Nehemiah Vargas EGFR-AF CANADIAN >60 Normal >=60 [facility] Comment on above: Performed By: #### C MP #### [facility] [address] [place] [address] [address] Nehemiah Vargas EGFR-NON AF CANADIAN >60 Normal >=60 [facility] Comment on above: Performed By: #### C MP #### [facility] [address] [place] [address] [address] Nehemiah Vargas Globulin (S) [Mass/Vol] 3.2 g/dL Normal [facility] Comment on above: Performed By: #### C MP #### [facility] [address] [place] [address] [address] Nehemiah Vargas Glucose [Mass/Vol] 116 mg/dL Critically high 74-106 [facility] Comment on above: Performed By: #### C MP #### [facility] [address] [place] [address] [address] Nehemiah Vargas Potassium [Moles/Vol] 4.1 mmol/L Normal 3.5-5.1 [facility] Comment on above: Performed By: #### C MP #### [facility] [address] [place] [address] Dr. Nehemiah Vargas Protein [Mass/Vol] 7.1 g/dL Normal 6.4-8.2 [facility] Comment on above: Performed By: #### C MP #### [facility] [address] [place] [address] [address] Nehemiah Vargas Sodium [Moles/Vol] 139 mmol/L Normal 136-145 [facility] Comment on above: Performed By: #### C MP #### [facility] [address] [place] [address] [address] Nehemiah Vargas Urea nitrogen [Mass/Vol] 10.0 mg/dL Normal 7.0-18.0 [facility] Comment on above: Performed By: #### C MP #### [facility] [address] [place] [address] [address] Nehemiah Vargas Urea nitrogen/Creatinin e [Mass ratio] 11.6 mg/mg Normal [facility] Comment on above: Performed By: #### C MP #### [facility] [address] [place] [address] [address] Nehemiah Vargas VIT D 25-OH LABCORPon 2021 Vitamin D, 25-Hydroxy 42.1 ng/mL Normal 30.0-100.0 [facility] Comment on above: Result Comment: Bria min D deficiency has been defined by the Platter of Medicine and an Endocrine Society practice guideline as a level of serum 25-OH vitamin D less than 20 ng/mL (1,2). The Endocrine Society went on to further define vitamin D insufficiency as a level between 21 and 29 ng/mL (2). 1. IOM (Platter of Medicine). 2010. Dietary reference intakes for calcium and D. Castañ[place]: The National Academies Press. 2. Deana MF, Eddie NC, Migel AMADOR, et al. Evaluation, treatment, and prevention of vitamin D deficiency: an Endocrine Society clinical practice guideline. JCEM. 2010; 96(7):1911-30. Performed By: #### V ITADLC #### [facility] [address] [place] [address] [address] Nehemiah Vargas FREE T3on 04-08-2022 FREE T3 1.59 pg/mlL Critically low 2.18-3.98 [facility] Comment on above: Performed By: #### C BC #### [facility] [address] [place] [address] Dr. Nehemiah Vargas FREE T4on 04-08-2022 Free T4 [Mass/Vol] 0.78 ng/dL Normal 0.76-1.46 [facility] Comment on above: Performed By: #### C BC #### [facility] [address] [place] [address] Dr. Nehemiah Vargas TSHon 04-08-2022 TSH 0.219 uIU/mL Critically low 0.358-3.[address] [facility] Comment on above: Performed By: #### C BC #### [facility] [address] [place] [address] Dr. Nehemiah Vargas PROLACTINon 01-23-2022 Prolactin 107.0 ng/mL Critically high 4.0-15.2 [facility] Comment on above: Performed By: #### C BC #### [facility] [address] [place] [address] Dr. Nehemiah Vargas CARDIAC HEIDI ADMITon 022 CK [Catalytic activity/Vol] 108 U/L Normal 39-308 [facility] Comment on above: Performed By: #### C BC #### [facility] [address] [place] [address] Dr. Nehemiah Vargas CK.MB [Mass/Vol] 3.01 ng/mL Normal <=3.60 [facility] Comment on above: Performed By: #### C BC #### [facility] [address] [place] [address] Dr. Nehemiah Vargas HSTROP 4.0 pg/mL Normal 4.0-76.1 [facility] Comment on above: Result Comment: CUT- OFF POINTS HAVE BEEN ESTABLISHED BASED ON THE FOURTH UNIVERSAL DEFINITIONS OF MYOCARDIAL INFARCTION. THE UPPER REFERENCE LIMIT (URL) OF TROPONIN, DEFINED THE 99TH PERCENTILE OF cTnI DISTRIBUTION IN A REFERENCE POPULATION, HAS BEEN CONFIRMED THE DECISION THRESHOLD FOR [place] DIAGNOSIS. Performed By: #### C BC #### [facility] [address] [place] [address] Dr. Nehemiah Vargas RICARDO 33 ng/mL Normal 16-96 [facility] Comment on above: Performed By: #### C BC #### [facility] [address] [place] [address] [address] Nehemiah Vargas CBC AUTO DIFFon 01-22-2022 BASO # 0.0 103/ul Normal 0.0-0.1 [facility] Comment on above: Performed By: #### C BC #### [facility] [address] [place] [address] [address] Nehemiah Vargas Basophils/100 WBC (Bld) 0.5 % Normal 0.2-2.0 [facility] Comment on above: Performed By: #### C BC #### [facility] [address] [place] [address] Dr. Nehemiah Vargas EO # 0.0 103/ul Normal 0.0-0.7 [facility] Comment on above: Performed By: #### C BC #### [facility] [address] [place] [address] Dr. Nehemiah Vargas Eosinophils/100 WBC (Bld) 0.3 % Critically low 0.9-7.0 [facility] Comment on above: Performed By: #### C BC #### [facility] [address] [place] [address] Dr. Nehemiah Vargas Erythrocyte distribution width (RBC) [Ratio] 12.4 % Normal 11.0-15.0 [facility] Comment on above: Performed By: #### C BC #### [facility] [address] [place] [address] Dr. Nehemiah Vargas Hematocrit (Bld) [Volume fraction] 43.1 % Normal 42.0-54.0 [facility] Comment on above: Performed By: #### C BC #### [facility] [address] [place] [address] Dr. Nehemiah Vargas Hemoglobin (Bld) [Mass/Vol] 14.6 g/dL Normal 14.0-18.0 [facility] Comment on above: Performed By: #### C BC #### [facility] [address] [place] [address] Dr. Nehemiah Vargas IG # 0.02 10e3/ul Normal 0.00-0.03 [facility] Comment on above: Performed By: #### C BC #### [facility] [address] [place] [address] Dr. Nehemiah Vargas IG % 0.3 % Normal 0.0-0.5 [facility] Comment on above: Performed By: #### C BC #### [facility] [address] [place] [address] Dr. Nehemiah Vargas LYMPH # 0.9 103/ul Critically low 1.2-3.8 [facility] Comment on above: Performed By: #### C BC #### [facility] [address] [place] [address] Dr. Nehemiah Vargas Lymphocytes/100 WBC (Bld) 13.1 % Critically low 20.5-60.0 [facility] Comment on above: Performed By: #### C BC #### [facility] [address] [place] [address] Dr. Nehemiah Vargas MANUAL DIFF REQ NO Normal [facility] Comment on above: Performed By: #### C BC #### [facility] [address] [place] [address] Dr. Nehemiah Vargas MCH (RBC) [Entitic mass] 30.0 pg Normal 25.9-34.0 [facility] Comment on above: Performed By: #### C BC #### [facility] [address] [place] [address] Dr. Nehemiah Vargas MCHC (RBC) [Mass/Vol] 33.9 g/dL Normal 29.9-35.2 [facility] Comment on above: Performed By: #### C BC #### [facility] [address] [place] [address] Dr. Nehemiah Vargas MCV (RBC) [Entitic vol] 88.7 fL Normal 80.0-94.0 [facility] Comment on above: Performed By: #### C BC #### [facility] [address] [place] [address] Dr. Nehemiah Vargas MONO # 0.4 103/ul Normal 0.3-0.8 [facility] Comment on above: Performed By: #### C BC #### [facility] [address] [address] [address] Nehemiah Vargas Monocytes/100 WBC (Bld) 5.3 % Normal 1.7-12.0 [facility] Comment on above: Performed By: #### C BC #### [facility] [address] [address] [address] Nehemiah Vargas NEUT # 5.4 103/ul Normal 1.4-6.5 [facility] Comment on above: Performed By: #### C BC #### [facility] [address] [address] [address] Nehemiah Vargas Neutrophils/100 WBC (Bld) 80.5 % Critically high 43.0-75.0 [facility] Comment on above: Performed By: #### C BC #### [facility] [address] [place] [address] Dr. Nehemiah Vargas Platelet mean volume (Bld) [Entitic vol] 9.1 fL Critically low 9.5-13.5 [facility] Comment on above: Performed By: #### C BC #### [facility] [address] [address] [address] Nehemiah Vargas PLT 198 103/ul Normal 150-450 [facility] Comment on above: Performed By: #### C BC #### [facility] [address] [place] [address] Dr. Nehemiah Vargas RBC 4.86 106/ul Normal 4.70-6.10 [facility] Comment on above: Performed By: #### C BC #### [facility] [address] [place] [address] Dr. Nehemiah Vargas WBC 6.7 103/ul Normal 4.0-11.0 [facility] Comment on above: Performed By: #### C BC #### [facility] [address] [place] [address] HEAD WO CONon [...] by: IZZY CHAMPAGNE Date: 2022-01-22 12:00 Normal [facility] LACTATE/LACTIC ACIDon 2021 Lactate [Moles/Vol] 1.2 mmol/L Normal 0.4-1.9 [facility] Comment on above: Performed By: #### L ACT #### [facility] [address] [place] [address] Dr. Nehemiah Vargas LIPASEon 01-22-2022 Lipase [Catalytic activity/Vol] 95.0 U/L Normal 73.0-393.0 [facility] Comment on above: Performed By: #### C BC #### [facility] [address] [place] [address] Dr. Nehemiah Vargas PH VENOUS BLOODon 01-22-2022 PCO2 VENOUS 51.9 mmHg Normal 40.0-52.0 [facility] Comment on above: Performed By: #### C BC #### [facility] [address] [place] [address] Dr. Nehemiah Vargas pH VENOUS 7.301 Critically low 7.330-7.430 [facility] Comment on above: Performed By: #### C BC #### [facility] [address] [place] [address] Dr. Nehemiah Vargas PROF 14(COMP METB)on 022 Albumin [Mass/Vol] 3.7 g/dL Normal 3.4-5.0 [facility] Comment on above: Performed By: #### C BC #### [facility] [address] [place] [address] Dr. Nehemiah Vargas Albumin/Globulin [Mass ratio] 1.2 {ratio} Normal [facility] Comment on above: Performed By: #### C BC #### [facility] [address] [place] [address] Dr. Nehemiah Vargas ALP [Catalytic activity/Vol] 97 U/L Normal 46-116 [facility] Comment on above: Performed By: #### C BC #### [facility] [address] [place] [address] Dr. Nehemiah Vargas ALT [Catalytic activity/Vol] 26 U/L Normal 16-63 [facility] Comment on above: Performed By: #### C BC #### [facility] [address] [place] [address] Dr. Nehemiah Vargas Anion gap [Moles/Vol] 11.1 mmol/L Normal [facility] Comment on above: Performed By: #### C BC #### [facility] [address] [place] [address] Dr. Nehemiah Vargas AST [Catalytic activity/Vol] 20 U/L Normal 15-37 [facility] Comment on above: Performed By: #### C BC #### [facility] [address] [place] [address] Dr. Nehemiah Vargas Bilirubin [Mass/Vol] 0.4 mg/dL Normal 0.2-1.0 [facility] Comment on above: Performed By: #### C BC #### [facility] [address] [place] [address] Dr. Nehemiah Vargas Calcium [Mass/Vol] 8.4 mg/dL Critically low 8.5-10.1 [facility] Comment on above: Performed By: #### C BC #### [facility] [address] [place] [address] Dr. Nehemiah Vargas Chloride [Moles/Vol] 96 mmol/L Critically low 98-107 [facility] Comment on above: Performed By: #### C BC #### [facility] [address] [place] [address] Dr. Nehemiah Vargas CO2 [Moles/Vol] 28.1 mmol/L Normal 21.0-32.0 [facility] Comment on above: Performed By: #### C BC #### [facility] [address] [place] [address] Dr. Nehemiah Vargas Creatinine [Mass/Vol] 0.85 mg/dL Normal 0.70-1.30 [facility] Comment on above: Performed By: #### C BC #### [facility] [address] [place] [address] Dr. Nehemiah Vargas EGFR-AF CANADIAN >60 Normal >=60 [facility] Comment on above: Performed By: #### C BC #### [facility] [address] [place] [address] Dr. Nehemiah Vargas EGFR-NON AF CANADIAN >60 Normal >=60 [facility] Comment on above: Performed By: #### C BC #### [facility] [address] [place] [address] Dr. Nehemiah Vargas Globulin (S) [Mass/Vol] 3.1 g/dL Normal [facility] Comment on above: Performed By: #### C BC #### [facility] [address] [place] [address] Dr. Nehemiah Vargas Glucose [Mass/Vol] 138 mg/dL Critically high 74-106 [facility] Comment on above: Performed By: #### C BC #### [facility] [address] [place] [address] Dr. Nehemiah Vargas Potassium [Moles/Vol] 4.2 mmol/L Normal 3.5-5.1 [facility] Comment on above: Performed By: #### C BC #### [facility] [address] [place] [address] Dr. Nehemiah Vargas Protein [Mass/Vol] 6.8 g/dL Normal 6.4-8.2 [facility] Comment on above: Performed By: #### C BC #### [facility] [address] [place] [address] Dr. Nehemiah Vargas Sodium [Moles/Vol] 131 mmol/L Critically low 136-145 [facility] Comment on above: Performed By: #### C BC #### [facility] [address] [address] [address] Nehemiah Vargas Urea nitrogen [Mass/Vol] 7.0 mg/dL Normal 7.0-18.0 [facility] Comment on above: Performed By: #### C BC #### [facility] [address] [address] [address] Nehemiah Vargas Urea nitrogen/Creatinin e [Mass ratio] 8.2 mg/mg Normal [facility] Comment on above: Performed By: #### C BC #### [facility] [address] [place] [address] Dr. Nehemiah Vargas TSHon 01-22-2022 TSH 1.003 uIU/mL Normal 0.358-3.740 [facility] Comment on above: Performed By: #### C BC #### [facility] [address] [place] [address] Dr. Nehemiah Vargas TSH RANGE SEE BELOW Normal [facility] Comment on above: Result Comment: <0.3 4 UIU/ml HYPERTHYROID 0.34-5.60 UIU/ml EUTHYROID >5.60 UIU/ml HYPOTHYROID Performed By: #### C BC #### [facility] [address] [place] [address] Dr. Nehemiah Vargas XR CHEST 1 Von [...] IZZY CHAMPAGNE Date: 2022-01-22 12:01 Normal [facility] CBC AUTO DIFFon 01-19-2022 BASO # 0.0 103/ul Normal 0.0-0.1 [facility] Comment on above: Performed By: #### C BC #### [facility] [address] [address] [address] Nehemiah Vargas Basophils/100 WBC (Bld) 0.4 % Normal 0.2-2.0 [facility] Comment on above: Performed By: #### C BC #### [facility] [address] [address] [address] Nehemiah Vargas EO # 0.1 103/ul Normal 0.0-0.7 [facility] Comment on above: Performed By: #### C BC #### [facility] [address] [address] [address] Nehemiah Vargas Eosinophils/100 WBC (Bld) 1.3 % Normal 0.9-7.0 [facility] Comment on above: Performed By: #### C BC #### [facility] [address] [place] [address] Dr. Nehemiah Vargas Erythrocyte distribution width (RBC) [Ratio] 12.9 % Normal 11.0-15.0 [facility] Comment on above: Performed By: #### C BC #### [facility] [address] [place] [address] Dr. Nehemiah Vargas Hematocrit (Bld) [Volume fraction] 42.8 % Normal 42.0-54.0 [facility] Comment on above: Performed By: #### C BC #### [facility] [address] [place] [address] Dr. Nehemiah Vargas Hemoglobin (Bld) [Mass/Vol] 13.9 g/dL Critically low 14.0-18.0 [facility] Comment on above: Performed By: #### C BC #### [facility] [address] [place] [address] Dr. Nehemiah Vargas IG # 0.02 10e3/ul Normal 0.00-0.03 [facility] Comment on above: Performed By: #### C BC #### [facility] [address] [address] [address] Nehemiah Vargas IG % 0.3 % Normal 0.0-0.5 [facility] Comment on above: Performed By: #### C BC #### [facility] [address] [place] [address] Dr. Nehemiah Vargas LYMPH # 1.8 103/ul Normal 1.2-3.8 [facility] Comment on above: Performed By: #### C BC #### [facility] [address] [place] [address] Dr. Nehemiah Vargas Lymphocytes/100 WBC (Bld) 26.5 % Normal 20.5-60.0 [facility] Comment on above: Performed By: #### C BC #### [facility] [address] [place] [address] Dr. Nehemiah Vargas MANUAL DIFF REQ NO Normal [facility] Comment on above: Performed By: #### C BC #### [facility] [address] [place] [address] Dr. Nehmeiah Vargas MCH (RBC) [Entitic mass] 29.6 pg Normal 25.9-34.0 [facility] Comment on above: Performed By: #### C BC #### [facility] [address] [place] [address] Dr. Nehemiah Vargas MCHC (RBC) [Mass/Vol] 32.5 g/dL Normal 29.9-35.2 [facility] Comment on above: Performed By: #### C BC #### [facility] [address] [place] [address] Dr. Nehemiah Vargas MCV (RBC) [Entitic vol] 91.1 fL Normal 80.0-94.0 [facility] Comment on above: Performed By: #### C BC #### [facility] [address] [place] [address] Dr. Nehemiah Vargas MONO # 0.5 103/ul Normal 0.3-0.8 [facility] Comment on above: Performed By: #### C BC #### [facility] [address] [place] [address] Dr. Nehemiah Vargas Monocytes/100 WBC (Bld) 6.9 % Normal 1.7-12.0 [facility] Comment on above: Performed By: #### C BC #### [facility] [address] [place] [address] Dr. Nehemiah Vargas NEUT # 4.4 103/ul Normal 1.4-6.5 [facility] Comment on above: Performed By: #### C BC #### [facility] [address] [place] [address] Dr. Nehemiah Vargas Neutrophils/100 WBC (Bld) 64.6 % Normal 43.0-75.0 [facility] Comment on above: Performed By: #### C BC #### [facility] [address] [place] [address] Dr. Nehemiah Vargas Platelet mean volume (Bld) [Entitic vol] 10.3 fL Normal 9.5-13.5 [facility] Comment on above: Performed By: #### C BC #### [facility] [address] [place] [address] Dr. Nehemiah Vargas PLT 193 103/ul Normal 150-450 [facility] Comment on above: Performed By: #### C BC #### [facility] [address] [place] [address] Dr. Nehemiah Vargas RBC 4.70 106/ul Normal 4.70-6.10 [facility] Comment on above: Performed By: #### C BC #### [facility] [address] [place] [address] Dr. Nehemiah Vargas WBC 6.8 103/ul Normal 4.0-11.0 [facility] Comment on above: Performed By: #### C BC #### [facility] [address] [place] [address] Dr. Nehemiah Vargas PROF CHEM 8 (BAS METB)on Anion gap [Moles/Vol] 8.7 mmol/L Normal [facility] Comment on above: Performed By: #### C BC #### [facility] [address] [place] [address] Dr. Nehemiah Vargas Calcium [Mass/Vol] 8.6 mg/dL Normal 8.5-10.1 [facility] Comment on above: Performed By: #### C BC #### [facility] [address] [address] [address] Nehemiah Vargas Chloride [Moles/Vol] 100 mmol/L Normal 98-107 [facility] Comment on above: Performed By: #### C BC #### [facility] [address] [place] [address] Dr. Nehemiah Vargas CO2 [Moles/Vol] 29.8 mmol/L Normal 21.0-32.0 [facility] Comment on above: Performed By: #### C BC #### [facility] [address] [place] [address] Dr. Nehemiah Vargas Creatinine [Mass/Vol] 0.88 mg/dL Normal 0.70-1.30 [facility] Comment on above: Performed By: #### C BC #### [facility] [address] [place] [address] Dr. Nehemiah Vargas EGFR-AF CANADIAN >60 Normal >=60 [facility] Comment on above: Performed By: #### C BC #### [facility] [address] [place] [address] Dr. Nehemiah Vargas EGFR-NON AF CANADIAN >60 Normal >=60 [facility] Comment on above: Performed By: #### C BC #### [facility] [address] [place] [address] Dr. Nehemiah Vargas Glucose [Mass/Vol] 107 mg/dL Critically high 74-106 [facility] Comment on above: Performed By: #### C BC #### [facility] [address] [place] [address] Dr. Nehemiah Vargas Potassium [Moles/Vol] 4.5 mmol/L Normal 3.5-5.1 [facility] Comment on above: Performed By: #### C BC #### [facility] [address] [place] [address] Dr. Nehemiah Vargas Sodium [Moles/Vol] 134 mmol/L Critically low 136-145 [facility] Comment on above: Performed By: #### C BC #### [facility] [address] [place] [address] Dr. Nehemiah Vargas Urea nitrogen [Mass/Vol] 9.0 mg/dL Normal 7.0-18.0 [facility] Comment on above: Performed By: #### C BC #### [facility] [address] [place] [address] Dr. Nehemiah Vargas Urea nitrogen/Creatinin e [Mass ratio] 10.2 mg/mg Normal [facility] Comment on above: Performed By: #### C BC #### [facility] [address] [address] [address] Nehemiah Vargas TSHon 01-19-2022 TSH 0.322 uIU/mL Critically low 0.358-3.[address] [facility] Comment on above: Performed By: #### C BC #### [facility] [address] [place] [address] Dr. Nehemiah Vargas TSH RANGE SEE BELOW Normal [facility] Comment on above: Result Comment: <0.3 4 UIU/ml HYPERTHYROID 0.34-5.60 UIU/ml EUTHYROID >5.60 UIU/ml HYPOTHYROID Performed By: #### C BC #### [facility] [address] [place] [address] Dr. Nehemiah Vargas CARDIAC HEIDI ADMITon 022 CK [Catalytic activity/Vol] 124 U/L Normal 39-308 [facility] Comment on above: Performed By: #### C MADM, CMP, ETH #### [facility] [address] [place] [address] Dr. Nehemiah Vargas CK.MB [Mass/Vol] 3.55 ng/mL Normal <=3.60 [facility] Comment on above: Performed By: #### C MADM, CMP, ETH #### [facility] [address] [place] [address] Dr. Nehemiah Vargas HSTROP 5.7 pg/mL Normal 4.0-76.1 [facility] Comment on above: Result Comment: CUT- OFF POINTS HAVE BEEN ESTABLISHED BASED ON THE FOURTH UNIVERSAL DEFINITIONS OF MYOCARDIAL INFARCTION. THE UPPER REFERENCE LIMIT (URL) OF TROPONIN, DEFINED THE 99TH PERCENTILE OF cTnI DISTRIBUTION IN A REFERENCE POPULATION, HAS BEEN CONFIRMED THE DECISION THRESHOLD FOR [place] DIAGNOSIS. Performed By: #### C SADIE VALLEJO, ETH #### [facility] [address] [address] [address] Nehemiah Vargas RICARDO 62 ng/mL Normal 16-96 [facility] Comment on above: Performed By: #### C GENEVAM, CMP, ETH #### [facility] [address] [address] [address] Nehemiah Vargas CBC AUTO DIFFon 01-18-2022 BASO # 0.0 103/ul Normal 0.0-0.1 [facility] Comment on above: Performed By: #### C BC #### [facility] [address] [address] [address] Nehemiah Vargas Basophils/100 WBC (Bld) 0.4 % Normal 0.2-2.0 [facility] Comment on above: Performed By: #### C BC #### [facility] [address] [place] [address] Dr. Nehemiah Vargas EO # 0.1 103/ul Normal 0.0-0.7 [facility] Comment on above: Performed By: #### C BC #### [facility] [address] [address] [address] Nehemiah Vargas Eosinophils/100 WBC (Bld) 0.8 % Critically low 0.9-7.0 [facility] Comment on above: Performed By: #### C BC #### [facility] [address] [address] [address] Nehemiah Vargas Erythrocyte distribution width (RBC) [Ratio] 12.5 % Normal 11.0-15.0 [facility] Comment on above: Performed By: #### C BC #### [facility] [address] [place] [address] Dr. Nehemiah Vargas Hematocrit (Bld) [Volume fraction] 43.9 % Normal 42.0-54.0 [facility] Comment on above: Performed By: #### C BC #### [facility] [address] [place] [address] Dr. Nehemiah Vargas Hemoglobin (Bld) [Mass/Vol] 14.3 g/dL Normal 14.0-18.0 [facility] Comment on above: Performed By: #### C BC #### [facility] [address] [address] [address] Nehemiah Vargas IG # 0.03 10e3/ul Normal 0.00-0.03 [facility] Comment on above: Performed By: #### C BC #### [facility] [address] [address] [address] Nehemiah Vargas IG % 0.3 % Normal 0.0-0.5 [facility] Comment on above: Performed By: #### C BC #### [facility] [address] [place] [address] Dr. Nehemiah Vargas LYMPH # 0.9 103/ul Critically low 1.2-3.8 [facility] Comment on above: Performed By: #### C BC #### [facility] [address] [place] [address] Dr. Nehemiah Vargas Lymphocytes/100 WBC (Bld) 9.4 % Critically low 20.5-60.0 [facility] Comment on above: Performed By: #### C BC #### [facility] [address] [place] [address] Dr. Nehemiah Vargas MANUAL DIFF REQ NO Normal [facility] Comment on above: Performed By: #### C BC #### [facility] [address] [place] [address] Dr. Nehemiah Vargas MCH (RBC) [Entitic mass] 29.9 pg Normal 25.9-34.0 [facility] Comment on above: Performed By: #### C BC #### [facility] [address] [place] [address] Dr. Nehemiah Vargas MCHC (RBC) [Mass/Vol] 32.6 g/dL Normal 29.9-35.2 [facility] Comment on above: Performed By: #### C BC #### [facility] [address] [place] [address] Dr. Nehemiah Vargas MCV (RBC) [Entitic vol] 91.6 fL Normal 80.0-94.0 [facility] Comment on above: Performed By: #### C BC #### [facility] [address] [address] [address] Nehemiah Vargas MONO # 0.5 103/ul Normal 0.3-0.8 [facility] Comment on above: Performed By: #### C BC #### [facility] [address] [address] [address] Nehemiah Vargas Monocytes/100 WBC (Bld) 5.5 % Normal 1.7-12.0 [facility] Comment on above: Performed By: #### C BC #### [facility] [address] [place] [address] Dr. Nehemiah Vargas NEUT # 7.6 103/ul Critically high 1.4-6.5 [facility] Comment on above: Performed By: #### C BC #### [facility] [address] [place] [address] Dr. Nehemiah Vargas Neutrophils/100 WBC (Bld) 83.6 % Critically high 43.0-75.0 [facility] Comment on above: Performed By: #### C BC #### [facility] [address] [place] [address] Dr. Nehemiah Vargas Platelet mean volume (Bld) [Entitic vol] 9.1 fL Critically low 9.5-13.5 [facility] Comment on above: Performed By: #### C BC #### [facility] [address] [place] [address] Dr. Nehemiah Vargas PLT 169 103/ul Normal 150-450 [facility] Comment on above: Performed By: #### C BC #### [facility] [address] [place] [address] Dr. Nehemiah Vargas RBC 4.79 106/ul Normal 4.70-6.10 [facility] Comment on above: Performed By: #### C BC #### [facility] [address] [place] [address] Dr. Nehemiah Vargas WBC 9.1 103/ul Normal 4.0-11.0 [facility] Comment on above: Performed By: #### C BC #### [facility] [address] [place] [address] Dr. Nehemiah Vargas DRUG SCREEN RAPID (URINE)on 01-18-2022 AMP Negative Normal NEGATIVE [facility] Comment on above: Performed By: #### C BC #### [facility] [address] [place] [address] Dr. Nehemiah Vargas BAR Negative Normal NEGATIVE [facility] Comment on above: Performed By: #### C BC #### [facility] [address] [place] [address] Dr. Nehemiah Vargas BUP Negative Normal NEGATIVE [facility] Comment on above: Performed By: #### C BC #### [facility] [address] [place] [address] Dr. Nehemiah Vargas BZO Positive Abnormal NEGATIVE [facility] Comment on above: Performed By: #### C BC #### [facility] [address] [place] [address] Dr. Nehemiah Vargas JILLIAN Negative Normal NEGATIVE [facility] Comment on above: Performed By: #### C BC #### [facility] [address] [place] [address] Dr. Nehemiah Vargas CUT-OFFS SEE BELOW Normal [facility] Comment on above: Result Comment: AMP (Amphetamine): 500ng/mL, BAR (Barbituates): 200 ng/mL, BZO (Benzodiazepines): 150 ng/mL, BUP (Buprenorphine): 10 ng/mL, JILLIAN (Cocaine): 150 ng/mL, mAMP (Methamphetamine): 500 ng/mL, MTD (Methadone): 200 ng/mL, OPI (Opiates): 100 ng/mL, OXY (Oxycodone): 100 ng/mL, PCP (Phencyclidine): 25 ng/mL, PPX (Propoxyphene): 300 ng/mL, THC (Cannabinoids): 50 ng/mL, TCA (Trycyclic Antidepressants): 300 ng/mL Performed By: #### C BC #### [facility] [address] [place] [address] Dr. Nehemiah Vargas DRUG CUT HEADER DRUG CLASS TEST SYSTEM CUT-OFF CONCENTRATIONS ARE FOLLOWS: Normal [facility] Comment on above: Performed By: #### C BC #### [facility] [address] [place] [address] Dr. Nehemiah Vargas mAMP Negative Normal NEGATIVE [facility] Comment on above: Performed By: #### C BC #### [facility] [address] [place] [address] Dr. Nehemiah Vargas MTD Negative Normal NEGATIVE [facility] Comment on above: Performed By: #### C BC #### [facility] [address] [place] [address] Dr. Nehemiah Vargas OPI Negative Normal NEGATIVE [facility] Comment on above: Performed By: #### C BC #### [facility] [address] [place] [address] Dr. Nehemiah Vargas OXY Negative Normal NEGATIVE [facility] Comment on above: Performed By: #### C BC #### [facility] [address] [place] [address] Dr. Nehemiah Vargas PCP Negative Normal NEGATIVE [facility] Comment on above: Performed By: #### C BC #### [facility] [address] [place] [address] Dr. Nehemiah Vargas PPX Negative Normal NEGATIVE [facility] Comment on above: Performed By: #### C BC #### [facility] [address] [place] [address] Dr. Nehemiah Vargas TCA Positive Abnormal NEGATIVE [facility] Comment on above: Performed By: #### C BC #### [facility] [address] [place] [address] Dr. Nehemiah Vargas THC Positive Abnormal NEGATIVE [facility] Comment on above: Performed By: #### C BC #### [facility] [address] [place] [address] Dr. Nehemiah Vargas ER URINE PROFILEon 2 Bilirubin Ql (U) Negative Normal NEGATIVE [facility] Comment on above: Performed By: #### C BC #### [facility] [address] [place] [address] Dr. Nehemiah Vargas Clarity (U) CLEAR Normal CLEAR [facility] Comment on above: Performed By: #### C BC #### [facility] [address] [place] [address] Dr. Nehemiah Vargas Color (U) YELLOW Normal YELLOW [facility] Comment on above: Performed By: #### C BC #### [facility] [address] [place] [address] Dr. Nehemiah SANTO A micrscopic examination will be performed if indicated. Normal [facility] Comment on above: Performed By: #### C BC #### [facility] [address] [place] [address] Dr. Nehemiah Vargas Glucose Ql (U) Negative Normal NEGATIVE [facility] Comment on above: Performed By: #### C BC #### [facility] [address] [place] [address] Dr. Nehemiah Vargas Hemoglobin Ql (U) Negative Normal NEGATIVE [facility] Comment on above: Performed By: #### C BC #### [facility] [address] [place] [address] Dr. Nehemiah Vargas Ketones Ql (U) Negative Normal NEGATIVE [facility] Comment on above: Performed By: #### C BC #### [facility] [address] [place] [address] Dr. Nehemiah Vargas LEUKOCYTES Negative Normal NEGATIVE [facility] Comment on above: Performed By: #### C BC #### [facility] [address] [place] [address] Dr. Nehemiah Vargas Nitrite Ql (U) Negative Normal NEGATIVE [facility] Comment on above: Performed By: #### C BC #### [facility] [address] [place] [address] Dr. Nehemiah Vargas pH (U) 6.0 [pH] Normal 5-9 [facility] Comment on above: Performed By: #### C BC #### [facility] [address] [place] [address] Dr. Nehemiah Vargas Protein (U) [Mass/Vol] 30 mg/dL Abnormal NEGATIVE/ TRACE [facility] Comment on above: Performed By: #### C BC #### [facility] [address] [place] [address] Dr. Nehemiah Vargas SPEC GRAVITY >=1.030 Abnormal 1.005-<=1.025 [facility] Comment on above: Performed By: #### C BC #### [facility] [address] [place] [address] Dr. Nehemiah Vargas UR MICRO IND INDICATED Normal [facility] Comment on above: Performed By: #### C BC #### [facility] [address] [place] [address] Dr. Nehemiah Vargas Urobilinogen Qn (U) 0.2 {Stevenson'U}/dL Normal 0.2 - 1.0 [facility] Comment on above: Performed By: #### C BC #### [facility] [address] [place] [address] Dr. Nehemiah Vargas ETHANOL (BLD ALC)on 01-19-20 22 ALC NOTE NOTE: 80 mg/dl is th e legal limit for a blood alcohol level Normal [facility] Comment on above: Performed By: #### C SADIE VALLEJO, ETH #### [facility] [address] [place] [address] Dr. Nehemiah Vargas Ethanol [Mass/Vol] mg/dL Normal [facility] Comment on above: Performed By: #### C SADIE VALLEJO, ETH #### [facility] [address] [place] [address] Dr. Nehemiah Vargas PROF 14(COMP METB)on 022 Albumin [Mass/Vol] 3.5 g/dL Normal 3.4-5.0 [facility] Comment on above: Performed By: #### C SADIE VALLEJO, ETH #### [facility] [address] [place] [address] Dr. Nehemiah Vargas Albumin/Globulin [Mass ratio] 1.2 {ratio} Normal [facility] Comment on above: Performed By: #### C SADIE VALLEJO, ETH #### [facility] [address] [place] [address] Dr. Nehemiah Vargas ALP [Catalytic activity/Vol] 94 U/L Normal 46-116 [facility] Comment on above: Performed By: #### C SADIE VALLEJO, ETH #### [facility] [address] [address] [address] Nehemiah Vargas ALT [Catalytic activity/Vol] 25 U/L Normal 16-63 [facility] Comment on above: Performed By: #### C MADM, CMP, ETH #### [facility] [address] [address] [address] Nehemiah Vargas Anion gap [Moles/Vol] 10.3 mmol/L Normal [facility] Comment on above: Performed By: #### C MADM, CMP, ETH #### [facility] [address] [address] [address] Nehemiah Vargas AST [Catalytic activity/Vol] 18 U/L Normal 15-37 [facility] Comment on above: Performed By: #### C MADM, CMP, ETH #### [facility] [address] [place] [address] Dr. Nehemiah Vargas Bilirubin [Mass/Vol] 0.3 mg/dL Normal 0.2-1.0 [facility] Comment on above: Performed By: #### C MADM, CMP, ETH #### [facility] [address] [address] [address] Nehemiah Vargas Calcium [Mass/Vol] 8.4 mg/dL Critically low 8.5-10.1 [facility] Comment on above: Performed By: #### C MADM, CMP, ETH #### [facility] [address] [place] [address] Dr. Nehemiah Vargas Chloride [Moles/Vol] 98 mmol/L Normal 98-107 [facility] Comment on above: Performed By: #### C MADM, CMP, ETH #### [facility] [address] [place] [address] Dr. Nehemiah Vargas CO2 [Moles/Vol] 29.1 mmol/L Normal 21.0-32.0 [facility] Comment on above: Performed By: #### C MADM, CMP, ETH #### [facility] [address] [address] [address] Nehemiah Vargas Creatinine [Mass/Vol] 0.78 mg/dL Normal 0.70-1.30 [facility] Comment on above: Performed By: #### C MADM, CMP, ETH #### [facility] [address] [address] [address] Nehemiah Vargas EGFR-AF CANADIAN >60 Normal >=60 [facility] Comment on above: Performed By: #### C MADM, CMP, ETH #### [facility] [address] [address] [address] Nehemiah Vargas EGFR-NON AF CANADIAN >60 Normal >=60 [facility] Comment on above: Performed By: #### C MADM, CMP, ETH #### [facility] [address] [address] [address] Nehemiah Vargas Globulin (S) [Mass/Vol] 3.0 g/dL Normal [facility] Comment on above: Performed By: #### C MADM, CMP, ETH #### [facility] [address] [place] [address] Dr. Nehemiah Vargas Glucose [Mass/Vol] 128 mg/dL Critically high 74-106 [facility] Comment on above: Performed By: #### C MADM, CMP, ETH #### [facility] [address] [address] [address] Nehemiah Vargas Potassium [Moles/Vol] 4.4 mmol/L Normal 3.5-5.1 [facility] Comment on above: Performed By: #### C MADM, CMP, ETH #### [facility] [address] [address] [address] Nehemiah Vargas Protein [Mass/Vol] 6.5 g/dL Normal 6.4-8.2 [facility] Comment on above: Performed By: #### C MADM, CMP, ETH #### [facility] [address] [address] [address] Nehemiah Vargas Sodium [Moles/Vol] 133 mmol/L Critically low 136-145 [facility] Comment on above: Performed By: #### C MADM, CMP, ETH #### [facility] [address] [address] [address] Nehemiah Vargas Urea nitrogen [Mass/Vol] 7.0 mg/dL Normal 7.0-18.0 [facility] Comment on above: Performed By: #### C SADIE VALLEJO, ETH #### [facility] [address] [place] [address] Dr. Nehemiah Vargas Urea nitrogen/Creatinin e [Mass ratio] 9.0 mg/mg Normal [facility] Comment on above: Performed By: #### C SADIE VALLEJO, ETH #### [facility] [address] [place] [address] Dr. Nehemiah Vargas URINE MICROSCOPIC ONLYon BACTERIA NONE SEEN Normal NONE SEEN [facility] Comment on above: Performed By: #### C BC #### [facility] [address] [place] [address] Dr. Nehemiah Vargas Bacteria identified Cx Nom (U) NOT INDICATED Normal [facility] Comment on above: Performed By: #### C BC #### [facility] [address] [place] [address] Dr. Nehemiah Vargas CAST NONE SEEN Normal NONE SEEN [facility] Comment on above: Performed By: #### C BC #### [facility] [address] [place] [address] Dr. Nehemiah Vargas Crystals LM Nom (Urine sed) NONE SEEN Normal NONE SEEN [facility] Comment on above: Performed By: #### C BC #### [facility] [address] [place] [address] Dr. Nehemiah Vargas Epithelial cells LM Ql (Urine sed) NONE SEEN Normal NONE SEEN /RARE [facility] Comment on above: Performed By: #### C BC #### [facility] [address] [place] [address] Dr. Nehemiah Vargas MUCOUS TRACE Abnormal NONE SEEN [facility] Comment on above: Performed By: #### C BC #### [facility] [address] [place] [address] Dr. Nehemiah Vargas RBC NONE SEEN Abnormal 0-2 [facility] Comment on above: Performed By: #### C BC #### [facility] [address] [place] [address] Dr. Nehemiah Vargas WBC 0-2 Abnormal NONE SEEN [facility] Comment on above: Performed By: #### C BC #### [facility] [address] [place] [address] Dr. Nehemiah Vargas CBC AUTO DIFFon 01-08-2022 BASO # 0.0 103/ul Normal 0.0-0.1 [facility] Comment on above: Performed By: #### C BC #### [facility] [address] [place] [address] Dr. Nehemiah Vargas Basophils/100 WBC (Bld) 0.3 % Normal 0.2-2.0 [facility] Comment on above: Performed By: #### C BC #### [facility] [address] [place] [address] Dr. Nehemiah Vargas EO # 0.1 103/ul Normal 0.0-0.7 [facility] Comment on above: Performed By: #### C BC #### [facility] [address] [place] [address] Dr. Nehemiah Vargas Eosinophils/100 WBC (Bld) 1.3 % Normal 0.9-7.0 [facility] Comment on above: Performed By: #### C BC #### [facility] [address] [place] [address] Dr. Nehemiah Vargas Erythrocyte distribution width (RBC) [Ratio] 12.6 % Normal 11.0-15.0 [facility] Comment on above: Performed By: #### C BC #### [facility] [address] [place] [address] Dr. Nehemiah Vargas Hematocrit (Bld) [Volume fraction] 44.9 % Normal 42.0-54.0 [facility] Comment on above: Performed By: #### C BC #### [facility] [address] [place] [address] Dr. Nehemiah Vargas Hemoglobin (Bld) [Mass/Vol] 14.8 g/dL Normal 14.0-18.0 [facility] Comment on above: Performed By: #### C BC #### [facility] [address] [place] [address] Dr. Nehemiah Vargas IG # 0.01 10e3/ul Normal 0.00-0.03 [facility] Comment on above: Performed By: #### C BC #### [facility] [address] [place] [address] Dr. Nehemiah Vargas IG % 0.1 % Normal 0.0-0.5 [facility] Comment on above: Performed By: #### C BC #### [facility] [address] [place] [address] Dr. Nehemiah Vargas LYMPH # 1.7 103/ul Normal 1.2-3.8 [facility] Comment on above: Performed By: #### C BC #### [facility] [address] [place] [address] Dr. Nehemiah Vargas Lymphocytes/100 WBC (Bld) 25.0 % Normal 20.5-60.0 [facility] Comment on above: Performed By: #### C BC #### [facility] [address] [place] [address] Dr. Nehemiah Vargas MANUAL DIFF REQ NO Normal [facility] Comment on above: Performed By: #### C BC #### [facility] [address] [place] [address] Dr. Nehemiah Vargas MCH (RBC) [Entitic mass] 30.1 pg Normal 25.9-34.0 [facility] Comment on above: Performed By: #### C BC #### [facility] [address] [place] [address] Dr. Nehemiah Vargas MCHC (RBC) [Mass/Vol] 33.0 g/dL Normal 29.9-35.2 [facility] Comment on above: Performed By: #### C BC #### [facility] [address] [place] [address] Dr. Nehemiah Vargas MCV (RBC) [Entitic vol] 91.4 fL Normal 80.0-94.0 [facility] Comment on above: Performed By: #### C BC #### [facility] [address] [place] [address] Dr. Nehemiah Vargas MONO # 0.5 103/ul Normal 0.3-0.8 [facility] Comment on above: Performed By: #### C BC #### [facility] [address] [address] [address] Nehemiah Vargas Monocytes/100 WBC (Bld) 7.5 % Normal 1.7-12.0 [facility] Comment on above: Performed By: #### C BC #### [facility] [address] [place] [address] Dr. Nehemiah Vargas NEUT # 4.6 103/ul Normal 1.4-6.5 [facility] Comment on above: Performed By: #### C BC #### [facility] [address] [place] [address] Dr. Nehemiah Vargas Neutrophils/100 WBC (Bld) 65.8 % Normal 43.0-75.0 [facility] Comment on above: Performed By: #### C BC #### [facility] [address] [place] [address] Dr. Nehemiah Vargas Platelet mean volume (Bld) [Entitic vol] 9.7 fL Normal 9.5-13.5 [facility] Comment on above: Performed By: #### C BC #### [facility] [address] [place] [address] Dr. Nehemiah Vargas PLT 169 103/ul Normal 150-450 [facility] Comment on above: Performed By: #### C BC #### [facility] [address] [place] [address] Dr. Nehemiah Vargas RBC 4.91 106/ul Normal 4.70-6.10 [facility] Comment on above: Performed By: #### C BC #### [facility] [address] [place] [address] Dr. Nehemiah Vargas WBC 6.9 103/ul Normal 4.0-11.0 [facility] Comment on above: Performed By: #### C BC #### [facility] [address] [place] [address] Dr. Nehemiah Vargas PROF CHEM 8 (BAS METB)on Anion gap [Moles/Vol] 14.5 mmol/L Normal [facility] Comment on above: Performed By: #### C BC #### [facility] [address] [address] [address] Nehemaih Vargas Calcium [Mass/Vol] 8.9 mg/dL Normal 8.5-10.1 [facility] Comment on above: Performed By: #### C BC #### [facility] [address] [address] [address] Nehemiah Vargas Chloride [Moles/Vol] 98 mmol/L Normal 98-107 [facility] Comment on above: Performed By: #### C BC #### [facility] [address] [address] [address] Nehemiah Vargas CO2 [Moles/Vol] 24.4 mmol/L Normal 21.0-32.0 [facility] Comment on above: Performed By: #### C BC #### [facility] [address] [address] [address] Nehemiah Vargas Creatinine [Mass/Vol] 0.88 mg/dL Normal 0.70-1.30 [facility] Comment on above: Performed By: #### C BC #### [facility] [address] [address] [address] Nehemiah Vargas EGFR-AF CANADIAN >60 Normal >=60 [facility] Comment on above: Performed By: #### C BC #### [facility] [address] [address] [address] Nehemiah Vargas EGFR-NON AF CANADIAN >60 Normal >=60 [facility] Comment on above: Performed By: #### C BC #### [facility] [address] [address] [address] Nehemiah Vargas Glucose [Mass/Vol] 152 mg/dL Critically high 74-106 [facility] Comment on above: Performed By: #### C BC #### [facility] [address] [address] [address] Nehemiah Vargas Potassium [Moles/Vol] 3.9 mmol/L Normal 3.5-5.1 [facility] Comment on above: Performed By: #### C BC #### [facility] [address] [place] [address] Dr. Nehemiah Vargas Sodium [Moles/Vol] 133 mmol/L Critically low 136-145 [facility] Comment on above: Performed By: #### C BC #### [facility] [address] [place] [address] Dr. Nehemiah Vargas Urea nitrogen [Mass/Vol] 7.0 mg/dL Normal 7.0-18.0 [facility] Comment on above: Performed By: #### C BC #### [facility] [address] [place] [address] Dr. Nehemiah Vargas Urea nitrogen/Creatinin e [Mass ratio] 8.0 mg/mg Normal [facility] Comment on above: Performed By: #### C BC #### [facility] [address] [place] [address] Dr. Nehemiah Vargas CBC AUTO DIFFon 12-15-2021 BASO # 0.1 103/ul Normal 0.0-0.1 [facility] Comment on above: Performed By: #### C BC #### [facility] [address] [place] [address] Dr. Nehemiah Vargas Basophils/100 WBC (Bld) 0.5 % Normal 0.2-2.0 [facility] Comment on above: Performed By: #### C BC #### [facility] [address] [place] [address] Dr. Nehemiah Vargas EO # 0.2 103/ul Normal 0.0-0.7 [facility] Comment on above: Performed By: #### C BC #### [facility] [address] [place] [address] Dr. Nehemiah Vargas Eosinophils/100 WBC (Bld) 1.5 % Normal 0.9-7.0 [facility] Comment on above: Performed By: #### C BC #### [facility] [address] [place] [address] Dr. Nehemiah Vargas Erythrocyte distribution width (RBC) [Ratio] 12.9 % Normal 11.0-15.0 [facility] Comment on above: Performed By: #### C BC #### [facility] [address] [place] [address] Dr. Nehemiah Vargas Hematocrit (Bld) [Volume fraction] 47.2 % Normal 42.0-54.0 [facility] Comment on above: Performed By: #### C BC #### [facility] [address] [place] [address] Dr. Nehemiah Vargas Hemoglobin (Bld) [Mass/Vol] 15.6 g/dL Normal 14.0-18.0 [facility] Comment on above: Performed By: #### C BC #### [facility] [address] [place] [address] Dr. Nehemiah Vargas IG # 0.02 10e3/ul Normal 0.00-0.03 [facility] Comment on above: Performed By: #### C BC #### [facility] [address] [place] [address] Dr. Nehemiah Vargas IG % 0.2 % Normal 0.0-0.5 [facility] Comment on above: Performed By: #### C BC #### [facility] [address] [place] [address] Dr. Nehemiah Vargas LYMPH # 1.5 103/ul Normal 1.2-3.8 [facility] Comment on above: Performed By: #### C BC #### [facility] [address] [place] [address] Dr. Nehemiah Vargas Lymphocytes/100 WBC (Bld) 13.4 % Critically low 20.5-60.0 [facility] Comment on above: Performed By: #### C BC #### [facility] [address] [place] [address] Dr. Nehemiah Vargas MANUAL DIFF REQ NO Normal [facility] Comment on above: Performed By: #### C BC #### [facility] [address] [place] [address] Dr. Nehemiah Vargas MCH (RBC) [Entitic mass] 30.2 pg Normal 25.9-34.0 [facility] Comment on above: Performed By: #### C BC #### [facility] [address] [place] [address] Dr. Nehemiah Vargas MCHC (RBC) [Mass/Vol] 33.1 g/dL Normal 29.9-35.2 [facility] Comment on above: Performed By: #### C BC #### [facility] [address] [address] [address] Nehemiah Vargas MCV (RBC) [Entitic vol] 91.3 fL Normal 80.0-94.0 [facility] Comment on above: Performed By: #### C BC #### [facility] [address] [address] [address] Nehemiah Vargas MONO # 0.8 103/ul Normal 0.3-0.8 [facility] Comment on above: Performed By: #### C BC #### [facility] [address] [place] [address] Dr. Nehemiah Vargas Monocytes/100 WBC (Bld) 7.2 % Normal 1.7-12.0 [facility] Comment on above: Performed By: #### C BC #### [facility] [address] [place] [address] Dr. Nehemiah Vargas NEUT # 8.4 103/ul Critically high 1.4-6.5 [facility] Comment on above: Performed By: #### C BC #### [facility] [address] [place] [address] Dr. Nehemiah Vargas Neutrophils/100 WBC (Bld) 77.2 % Critically high 43.0-75.0 [facility] Comment on above: Performed By: #### C BC #### [facility] [address] [place] [address] Dr. Nehemiah Vargas Platelet mean volume (Bld) [Entitic vol] 9.3 fL Critically low 9.5-13.5 [facility] Comment on above: Performed By: #### C BC #### [facility] [address] [place] [address] Dr. Nehemiah Vargas PLT 171 103/ul Normal 150-450 [facility] Comment on above: Performed By: #### C BC #### [facility] [address] [place] [address] Dr. Nehemiah Vargas RBC 5.17 106/ul Normal 4.70-6.10 [facility] Comment on above: Performed By: #### C BC #### [facility] [address] [place] [address] Dr. Nehemiah Vargas WBC 10.9 103/ul Normal 4.0-11.0 [facility] Comment on above: Performed By: #### C BC #### [facility] [address] [place] [address] Dr. Nehemiah Vargas PROF 14(COMP METB)on 022 Albumin [Mass/Vol] 3.6 g/dL Normal 3.4-5.0 [facility] Comment on above: Performed By: #### C BC #### [facility] [address] [place] [address] Dr. Nehemiah Vargas Albumin/Globulin [Mass ratio] 1.2 {ratio} Normal [facility] Comment on above: Performed By: #### C BC #### [facility] [address] [place] [address] Dr. Nehemiah Vargas ALP [Catalytic activity/Vol] 105 U/L Normal 46-116 [facility] Comment on above: Performed By: #### C BC #### [facility] [address] [place] [address] Dr. Nehemiah Vargas ALT [Catalytic activity/Vol] 21 U/L Normal 16-63 [facility] Comment on above: Performed By: #### C BC #### [facility] [address] [place] [address] Dr. Nehemiah Vargas Anion gap [Moles/Vol] 11.4 mmol/L Normal [facility] Comment on above: Performed By: #### C BC #### [facility] [address] [place] [address] Dr. Nehemiah Vargas AST [Catalytic activity/Vol] 18 U/L Normal 15-37 [facility] Comment on above: Performed By: #### C BC #### [facility] [address] [place] [address] Dr. Nehemiah Vargas Bilirubin [Mass/Vol] 0.4 mg/dL Normal 0.2-1.0 [facility] Comment on above: Performed By: #### C BC #### [facility] [address] [place] [address] Dr. Nehemiah Vargas Calcium [Mass/Vol] 8.2 mg/dL Critically low 8.5-10.1 [facility] Comment on above: Performed By: #### C BC #### [facility] [address] [place] [address] Dr. Nehemiah Vargas Chloride [Moles/Vol] 96 mmol/L Critically low 98-107 [facility] Comment on above: Performed By: #### C BC #### [facility] [address] [place] [address] Dr. Nehemiah Vargas CO2 [Moles/Vol] 28.5 mmol/L Normal 21.0-32.0 [facility] Comment on above: Performed By: #### C BC #### [facility] [address] [place] [address] Dr. Nehemiah Vargas Creatinine [Mass/Vol] 0.88 mg/dL Normal 0.70-1.30 [facility] Comment on above: Performed By: #### C BC #### [facility] [address] [place] [address] Dr. Nehemiah Vargas EGFR-AF CANADIAN >60 Normal >=60 [facility] Comment on above: Performed By: #### C BC #### [facility] [address] [place] [address] Dr. Nehemiah Vargas EGFR-NON AF CANADIAN >60 Normal >=60 [facility] Comment on above: Performed By: #### C BC #### [facility] [address] [place] [address] Dr. Nehemiah Vargas Globulin (S) [Mass/Vol] 3.1 g/dL Normal [facility] Comment on above: Performed By: #### C BC #### [facility] [address] [place] [address] Dr. Nehemiah Vargas Glucose [Mass/Vol] 121 mg/dL Critically high 74-106 [facility] Comment on above: Performed By: #### C BC #### [facility] [address] [address] [address] Nehemiah Vargas Potassium [Moles/Vol] 3.9 mmol/L Normal 3.5-5.1 [facility] Comment on above: Performed By: #### C BC #### [facility] [address] [place], [place] [address] Dr. Nehemiah Vargas Protein [Mass/Vol] 6.7 g/dL Normal 6.1-8.2 [facility] Comment on above: Performed By: #### C BC #### [facility] [address] [address] [address] Nehemiah Vargas Sodium [Moles/Vol] 132 mmol/L Critically low 136-145 [facility] Comment on above: Performed By: #### C BC #### [facility] [address] [address] [address] Nehemiah Vargas Urea nitrogen [Mass/Vol] 8.0 mg/dL Normal 7.0-18.0 [facility] Comment on above: Performed By: #### C BC #### [facility] [address] [address] [address] Nehemiah Vargas Urea nitrogen/Creatinin e [Mass ratio] 9.1 mg/mg Normal [facility] Comment on above: Performed By: #### C BC #### [facility] [address] [place], [place] [address] Dr. Nehemiah Vargas Vital Signs Date Time Vital Sign Value Performing Clinician Facility 12-13-2023 10:20-040 Body height 190.5 cm MD Shaikh Schuster Work Phone: [facility] 12-13-2023 10:20-040 Body mass index (BMI) [Ratio] 20.3 kg/m2 MD Shaikh Schuster Work Phone: [facility] 12-13-2023 10:20-040 Body weight 73.93 kg MD Shaikh Schuster Work Phone: [facility] 12-01-2023 14:25-0400 Diastolic blood pressure 99 mm[Hg] MD Shaikh Schuster Work Phone: [facility] 12-01-2023 14:25-0400 Heart rate 77 /min MD Shaikh Schuster Work Phone: [facility] 12-01-2023 14:25-0400 Systolic blood pressure 129 mm[Hg] MD Shaikh Schuster Work Phone: [facility] 12-01-2023 09:10-0400 Respiratory rate 18 /min MD Shaikh Schuster Work Phone: [facility] 12-01-2023 09:10-0400 SaO2% (BldA) [Mass fraction] 98 % MD Shaikh Schuster Work Phone: [facility] 06-20-2023 10:10-0400 Body height 190.5 cm MD Shaikh Schuster Work Phone: [facility] 06-20-2023 10:10-0400 Body weight 68.03 kg MD Shaikh Schuster Work Phone: [facility] 12-01-2021 11:20-0400 Body height 185.42 cm J[facility] Other [facility] Other 12-01-2021 11:20-0400 Body mass index (BMI) [Ratio] 21.77 kg/m2 [facility] Other 12-01-2021 11:20-0400 Body weight 74.84 kg J[facility] Other [facility] Other 10-09-2021 08:25-0500 Body height 190.5 cm MD Shaikh Schuster Work Phone: [facility] 10-09-2021 08:25-0500 Body weight 72.57 kg MD Shaikh Schuster Work Phone: [facility] 06-02-2021 12:20-0400 Body height 185.42 cm [facility] Other [facility] Other 06-02-2021 12:20-0400 Body mass index (BMI) [Ratio] 21.77 kg/m2 [facility] Other [facility] Other 06-02-2021 12:20-0400 Body weight 74.84 kg [facility] Other [facility] Other 06-02-2021 12:20-0400 Diastolic blood pressure 82 mm[Hg] [facility] Other [facility] Other 06-02-2021 12:20-0400 Systolic blood pressure 138 mm[Hg] [facility] Other [facility] Other Encounters Encounter Date Encounter Type Care Provider Facility Start: 03-21-2024 End: 03-21-2024 Patient encounter procedure MD Shaikh Schuster Work Phone: [facility] Work Phone: Start: 03-21-2024 End: 03-21-2024 ambulatory MD Shaikh Schuster Work Phone: [facility] Work Phone: Start: 02-27-2024 End: 02-27-2024 ambulatory VANDA WOLFE Not Available Start: 12-13-2023 End: 12-13-2023 ambulatory MD Shaikh Schuster Work Phone: [facility] Work Phone: Start: 12-13-2023 End: 12-13-2023 Patient encounter procedure MD Shaikh Schuster Work Phone: [facility]placed By [facility] Work Phone: Start: 12-12-2023 End: 12-12-2023 Patient encounter procedure MD Shaikh Schuster Work Phone: [facility] [place] Work Phone: Start: 12-12-2023 End: 12-12-2023 ambulatory MD Shaikh Schuster Work Phone: [facility] Work Phone: Start: 12-07-2023 End: 12-07-2023 ambulatory OBEY LOWE Not Available Start: 12-01-2023 Registered Recurring MD Shaikh Schuster Work Phone: [facility] Work Phone: Start: 06-20-2023 End: 06-20-2023 Patient encounter procedure MD Shaikh Schuster Work Phone: [facility] [place] Work Phone: Start: 06-20-2023 End: 06-20-2023 ambulatory MD Shaikh Schuster Work Phone: [facility] Work Phone: Start: 11-29-2022 End: 11-29-2022 ambulatory MD Shaikh Schuster Work Phone: [facility] Work Phone: Start: 11-29-2022 End: 11-29-2022 Patient encounter procedure MD Shaikh Schuster Work Phone: [facility] [place] Work Phone: Start: 09-16-2022 End: 09-17-2022 ambulatory [...] encounter procedure MD Shaikh Schuster Work Phone: [facility] [address] Start: 12-15-2021 End: 12-16-[address] IZZY VERGARA Facility:[facility] Start: 12-01-2021 End: 12-01-2021 ambulatory J[facility] Other [facility] Other Start: 12-01-2021 Office outpatient visit [address] [facility] Start: 11-19-2021 End: 11-19-2021 Patient encounter procedure MD Shaikh Schuster Work Phone: [facility] [place] Start: 10-15-2021 End: 10-16-[address] IZZY VERGARA Facility:[facility] Start: 10-09-2021 End: 10-09-2021 Patient encounter procedure MD Shaikh Schuster Work Phone: [facility] [address] [place] Start: 06-02-2021 Office outpatient visit [address] [facility] Start: 06-02-2021 Telephone encounter Js May [facility] Procedures Date Procedure Procedure Detail [...] with contrast MD Shaikh Schuster Work Phone: Plan of Treatment Date Care Activity Detail Author Start: 03-21-2024 MR Unspecified body region [facility] Start: 03-21-2024 MRI of head MR head/brain wo/w con [facility] Payers Date Payer Category Payer Medicaid [id number] 1980 Unknown [id number] 2.16.84 [id number] 1979 Unknown [id number] 2.16.84 [id number] 1979 Unknown [id number] .16.84 [id number] 1979 Unknown [id number] .16.84 [id number] 1979 Unknown [id number] 2.16.84 0.1.171597.3.579.2.593 1979 Unknown [id number] 2.16.84 [id number] 1979 Unknown [id number] 2.16.84 0.1.525957.3.579.2.593 1979 Unknown [id number] 2.16.84 0.1.117815.3.579.2.593 1979 Unknown [id number] 2.16.84 0.1.172038.3.579.2.593 1979 Unknown [id number] 2.16.84 0.1.088730.3.579.2.593 1979 Unknown [id number] 2.16.84 0.1.593458.3.579.2.1259 1979 Unknown [id number] 2.16.84 [id number] 1959 Unknown [id number] Self-pay Self Pay [id number] Social History Date Type Detail Facility Start: 12-01-2020 Tobacco smoking status NMIS Ex-smoker (finding) [facility] Start: 1980 Sex Assigned At Male F [facility] Sex Assigned At Sex Assigned At Bir [facility] Other Medical Equipment Procedure Code Equipment Code [...] FDA Start: 11-09-2017 Spinal fusion graft kit [id number] FDA Start: 12-01-2020 Bone-screw internal spinal fixation system, non-sterile [id number] FDA Start: 12-01-2020 Bone-screw internal spinal fixation system, non-sterile [id number] FDA Start: 12-01-2020 Polymeric spinal fusion cage, non-sterile [id number] FDA Start: 12-01-2020 Bone-screw internal spinal fixation system, non-sterile [id number] FDA Start: 12-01-2020 Evaluation note 12-01-2021 Note [...] the active MS that this patient has. [facility] Other Evaluation note 06-02-2021 Note Date & [...] M51.36) May, Multiple sclerosis (ICD-10 - G35) [facility] Other Evaluation note Note Date & Type Note Facility Evaluation note No assessment information [facility] Work Phone: Evaluation note Note Date & Type Note Facility Evaluation note No Information [email or web address] Other History general Narrative - Reported Note Date & Type Note Facility History general Narrative - Reported Type Medical History multiple sclerosis Medical History Patient was born with one kidney Medical History degenerative disc disease Medical History anxiety Medical History depression Surgical History lumbar laminectomy Surgical History Chest tube Surgical History nephrectomy Hospitalization History See Above [facility] Other History general Narrative - Reported Note [...] Lumbar fusion-Doctor [facility] Hospitalization History See Above [facility] Other Chief Complaint and Reason for Visit [...] Family history of mental disorder Unknow n Relationship Condition Age at Onset Recorded Date/T jazmine father Hypertension Unknown mother Autoimmune disease Unknown mother Family history of mental disorder Unknown Advance Directives No Advanced Directives Records Found Advance Directive Response Recorded Date/ Time Advance Directives No September 11:18am Summary Purpose Additional Source Comments Care Teams (unrecognized sec tion and content) Team Status: Active Member Role Status Susi Schuster MD Primary Care Provider Active Team Status: Inactive Member Role Status Susi Schuster MD Primary Care Provider Active Start: March 21, 2024 End: March 21, 2024 Vanda Wolfe PA-C Attending Provider Active Sta rt: March 21, 2024 End: March 21, 2024 Team Status: Active Member Role Status Susi Schuster MD Primary Care Provider Active Start: December 01, 2023 Obey Lopez PA-C Attending Provider, Referring Provider Active Start: December 01, 2023 Team Status: Inactive Member Role Status Susi Schuster MD Primary Care Provider Active Start: December 12, 2023 End: December 12, 2023 Js May MD Attending Provider Active Star t: December 12, 2023 End: December 12, 2023 Team Status: Inactive Member Role Status Susi [...] Susi Schuster MD Primary Care Provider Active Start: December [...] and content) DATE CREATED AUTHOR 09/18/2022 [facility] DATE CREATED AUTHOR AUTHOR'S ORGANIZ ATION 02/28/2024 [facility] EPIC DATE CREATED AUTHOR AUTHOR'S ORGANIZ ATION 03/24/2024 [facility] FOR RECORDS PERTAINING TO [...] BE BASED ON THE PRIMARY CLINICAL RECORDS. [facility] [facility]. provides no warranty or guarantee of the accuracy or completeness of information in this document.
== END 2024-04-09 09:58 | disposition home or self-care (01) ==
LOC: EC 09:57
PROVIDERS: Visit Provider Orthopaedic Surgery
DX: S42.295D Other nondisplaced fracture of upper end of left humerus, subsequent encounter for fracture with routine healing (principal)
CPT/HCPCS: 73030

== ENCOUNTER 2024-04-19 18:21 | Emergency (ER) | payer OTHER, SELFPAY ==
[2024-04-19 18:25] VITALS: BP 116/91; PULSE 61; TEMP 36.8; O2SAT 97; BMI 20.6
--- OUTSIDE RECORDS SUMMARY | 2024-04-19 18:28 | XMS_ITS | CCD ---
Author Organization [facility] CliniSysd Care Team Providers Care Import Dispatcher Name Role Phone MD Tracey Schuster Primary Care Provider WALDO Lopez Attending Provider MD Js May Attending Provider WALDO Camarena Attending Provider Js May Unavailable OBEY LOPEZ Attending Unavailable OBEY LOPEZ Consulting Unavailable FAWWAD, WEBB H Primary Care Unavailable OBEY LOPEZ Admitting Unavailable BENEDICT, DR MAGANA Attending Unavailable BENEDICT, DR MAGANA Admitting Unavailable FAWWAD, WEBB H Primary Care Unavailable MARIA ALEJANDRA FRANCOIS Admitting Unavailable MARIA ALEJANDRA FRANCOIS Attending Unavailable ALESSANDRO MARIA ALEJANDRA Consulting Unavailable FAWWAD, WEBB H Primary Care Unavailable SHAHNAZSALVADOR Consulting Unavailable FAWWAD, WEBB H Primary Care Unavailable SALVADOR CHRISTIE Admitting Unavailable SALVADOR CHRISTIE Attending Unavailable ZIEBFRIEDA, DR IZZY Giron Consulting [...] Unavailable Js May Attending Unavailable Jagdish Schusterikh [facility] Unavailable Vanda Wolfe Admitting Unavailable Vanda Wolfe Attending Unavailable Jagdish Schusterikh [facility] Unavailable Allergies Allergy Classification Reported Allergen(s) Allergy Type Date of Onset Reaction(s) Facility (6 sources) NSAIDs Propensity to adverse reactions 04-16-20 20 Contraindicated R/T 1 kidney [facility] (7 sources) Penicillins; Translations: [Penicillins] Propensity to adverse reactions 04-06-20 15 Vomiting, Vomiting, N/V [facility] (6 sources) penicillAMINE Drug Allergy 12-01-19 23 Unknown, Unknown Reaction [facility] (6 sources) Anti-Inflammator y Enzyme Drug allergy 12-01-19 23 Unknown, Unknown Reaction [facility] (1 source) Penicillin Drug Allergy N/V Walk-in Other Medications Current Medications Medication Drug Class(es) [...] 01-26-2022 Episodic Other aftercare (1 source) 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; Translations: [OTH SNF CURRENT DRUG THERAPY] Onset: 02-01-2022 Episodic Other [...] head/brain wo/w conon MR head/brain wo/w con [facility] [address] MRI Report Signed Patient: Alexis Negrete II MR#: [id number] : 1980 Acct:[id number] Age/Sex: 43 / M ADM Date: 03/21/24 Loc: MR Room: Type: [facility] Attending Dr: Vanda Wolfe PA-C Copies to: [...] Wyatt Ramos M.D.03/22/2024 8:31 AM Dictation Location: [place] [address] Transcribed By: [facility] 03/22/24830 Dictated By: Wyatt Ramos DO 03/21/241923 Signed By: 03/22/24830 Normal [facility] XR lumbar spine AP/LAT/FLX/E XTon 12-12-2023 XR lumbar spine AP/LAT/FLX/EXT [facility] [place] [address] [place] [address] XRay Report Signed Patient: Alexis Negrete II MR#: [id number] : 1980 Acct:[id number] Age/Sex: 43 / M ADM Date: 12/12/23 Loc: XD Room: Type: [facility] Attending Dr: Js May MD Copies [...] Heidi Richardson M.D.12/12/2023 8:25 PM Dictation Location: [place] [address] Transcribed By: [facility] 12/12/232024 Dictated By: Heidi Richardson II, MD 12/12/232023 Signed By: 12/12/232024 Normal [facility] MR cervical spine wo/w conon 06-20-2023 MR cervical spine wo/w con [facility] [place] [address] [place] [address] MRI Report Signed Patient: Alexis Negrete II MR#: [id number] : 1980 Acct:[id number] Age/Sex: 42 / M ADM Date: 06/20/23 Loc: Room: Type: [facility] Attending Dr: Obey Lopez PA-C Copies [...] Heidi Richardson M.D.06/20/2023 1:44 PM Dictation Location: [place] [address] Transcribed By: [facility] 06/20/23 1344 Dictated By: Heidi Richardson II, MD 06/20/23 1338 Signed By: 06/20/23 1344 Normal [facility] MR thoracic spine wo/w tonya 06-20-2023 MR thoracic spine wo/w con [facility] [place] [address] [place] [address] MRI Report Signed Patient: Alexis Negrete II MR#: [id number] : 1980 Acct:[id number] Age/Sex: 42 / M ADM Date: 06/20/23 Loc: MR Room: Type: [facility] Attending Dr: Obey Lopez PA-C Copies to: Obey Lopez PA-C Ordering Provider: Oeby Lopez PA-C Date of Service: 06/20/23 MR/MR [...] Heidi Richardson M.D.06/20/2023 1:37 PM Dictation Location: [place] [address] Transcribed By: CELINA 06/20/231336 Dictated By: Heidi Richardson II, MD 06/20/231330 Signed By: 06/20/231336 Normal [facility] CBC AUTO DIFFon 09-16-2022 BASO # 0.0 103/ul Normal 0.0-0.1 [facility] Comment on above: Performed By: #### C BC #### [facility] [address] [place] [address] [address] Nehemiah Vargas Basophils/100 WBC (Bld) 0.5 % Normal 0.2-2.0 [facility] Comment on above: Performed By: #### C BC #### [facility] [address] [place] [address] [address] Nehemiah Vargas EO # 0.0 103/ul Normal 0.0-0.7 [facility] Comment on above: Performed By: #### C BC #### [facility] [address] [place] [address] [address] Nehemiah Vargas Eosinophils/100 WBC (Bld) 0.5 % Critically low 0.9-7.0 [facility] Comment on above: Performed By: #### C BC #### [facility] [address] [place] [address] [address] Nehemiah Vargas Erythrocyte distribution width (RBC) [Ratio] 13.2 % Normal 11.0-15.0 [facility] Comment on above: Performed By: #### C BC #### [facility] [address] [place] [address] [address] Nehemiah Vargas Hematocrit (Bld) [Volume fraction] 50.1 % Normal 42.0-54.0 [facility] Comment on above: Performed By: #### C BC #### [facility] [address] [place] [address] [address] Nehemiah Vargas Hemoglobin (Bld) [Mass/Vol] 15.2 g/dL Normal 14.0-18.0 [facility] Comment on above: Performed By: #### C BC #### [facility] [address] [place] [address] Dr. Nehemiah Vargas IG # 0.02 10e3/ul Normal 0.00-0.03 [facility] Comment on above: Performed By: #### C BC #### [facility] [address] [place] [address] Dr. Nehemiah Vargas IG % 0.3 % Normal 0.0-0.5 [facility] Comment on above: Performed By: #### C BC #### [facility] [address] [place] [address] Dr. Nehemiah Vargas LYMPH # 1.8 103/ul Normal 1.2-3.8 [facility] Comment on above: Performed By: #### C BC #### [facility] [address] [place] [address] Dr. Nehemiah Vargas Lymphocytes/100 WBC (Bld) 22.9 % Normal 20.5-60.0 [facility] Comment on above: Performed By: #### C BC #### [facility] [address] [place] [address] Dr. Nehemiah Vargas MANUAL DIFF REQ NO Normal [facility] Comment on above: Performed By: #### C BC #### [facility] [address] [place] [address] Dr. Nehemiah Vargas MCH (RBC) [Entitic mass] 29.9 pg Normal 25.9-34.0 [facility] Comment on above: Performed By: #### C BC #### [facility] [address] [place] [address] Dr. Nehemiah Vargas MCHC (RBC) [Mass/Vol] 30.3 g/dL Normal 29.9-35.2 [facility] Comment on above: Performed By: #### C BC #### [facility] [address] [place] [address] Dr. Nehemiah Vargas MCV (RBC) [Entitic vol] 98.4 fL Critically high 80.0-94.0 [facility] Comment on above: Performed By: #### C BC #### [facility] [address] [place] [address] Dr. Nehemiah Vargas MONO # 0.5 103/ul Normal 0.3-0.8 [facility] Comment on above: Performed By: #### C BC #### [facility] [address] [place] [address] [address] Nehemiah Vargas Monocytes/100 WBC (Bld) 6.7 % Normal 1.7-12.0 [facility] Comment on above: Performed By: #### C BC #### [facility] [address] [place] [address] Dr. Nehemiah Vargas NEUT # 5.5 103/ul Normal 1.4-6.5 [facility] Comment on above: Performed By: #### C BC #### [facility] [address] [place] [address] Dr. Nehemiah Vargas Neutrophils/100 WBC (Bld) 69.1 % Normal 43.0-75.0 [facility] Comment on above: Performed By: #### C BC #### [facility] [address] [place] [address] Dr. Nehemiah Vargas Platelet mean volume (Bld) [Entitic vol] 10.1 fL Normal 9.5-13.5 [facility] Comment on above: Performed By: #### C BC #### [facility] [address] [place] [address] Dr. Nehemiah Vargas PLT 159 103/ul Normal 150-450 [facility] Comment on above: Performed By: #### C BC #### [facility] [address] [place] [address] Dr. Nehemiah Vargas RBC 5.09 106/ul Normal 4.70-6.10 [facility] Comment on above: Performed By: #### C BC #### [facility] [address] [place] [address] Dr. Nehemiah Vargas WBC 7.9 103/ul Normal 4.0-11.0 [facility] Comment on above: Performed By: #### C BC #### [facility] [address] [place] [address] Dr. Nehemiah Vargas PROF 14(COMP METB)on 023 Albumin [Mass/Vol] 3.9 g/dL Normal 3.4-5.0 [facility] Comment on above: Performed By: #### C MP #### [facility] [address] [place] [address] [address] Nehemiah Vargas Albumin/Globulin [Mass ratio] 1.2 {ratio} Normal [facility] Comment on above: Performed By: #### C MP #### [facility] [address] [place] [address] [address] Nehemiah Vargas ALP [Catalytic activity/Vol] 118 U/L Critically high 46-116 [facility] Comment on above: Performed By: #### C MP #### [facility] [address] [place] [address] Dr. Nehemiah Vargas ALT [Catalytic activity/Vol] 25 U/L Normal 16-63 [facility] Comment on above: Performed By: #### C MP #### [facility] [address] [place] [address] [address] Nehemiah Vargas Anion gap [Moles/Vol] 11.7 mmol/L Normal [facility] Comment on above: Performed By: #### C MP #### [facility] [address] [place] [address] Dr. Nehemiah Vargas AST [Catalytic activity/Vol] 24 U/L Normal 15-37 [facility] Comment on above: Performed By: #### C MP #### [facility] [address] [place] [address] [address] Nehemiah Vargas Bilirubin [Mass/Vol] 0.5 mg/dL Normal 0.2-1.0 [facility] Comment on above: Performed By: #### C MP #### [facility] [address] [place] [address] [address] Nehemiah Vargas Calcium [Mass/Vol] 8.8 mg/dL Normal 8.5-10.1 [facility] Comment on above: Performed By: #### C MP #### [facility] [address] [place] [address] Dr. Nehemiah Vargas Chloride [Moles/Vol] 101 mmol/L Normal 98-107 [facility] Comment on above: Performed By: #### C MP #### [facility] [address] [place] [address] [address] Nehemiah Vargas CO2 [Moles/Vol] 30.4 mmol/L Normal 21.0-32.0 [facility] Comment on above: Performed By: #### C MP #### [facility] [address] [place] [address] [address] Nehemiah Vargas Creatinine [Mass/Vol] 0.86 mg/dL Normal 0.70-1.30 [facility] Comment on above: Performed By: #### C MP #### [facility] [address] [place] [address] Dr. Nehemiah Vargas EGFR-AF SWEDISH >60 Normal >=60 [facility] Comment on above: Performed By: #### C MP #### [facility] [address] [place] [address] [address] Nehemiah Vargas EGFR-NON AF SWEDISH >60 Normal >=60 [facility] Comment on above: Performed By: #### C MP #### [facility] [address] [place] [address] [address] Nehemiah Vargas Globulin (S) [Mass/Vol] 3.2 g/dL Normal [facility] Comment on above: Performed By: #### C MP #### [facility] [address] [place] [address] [address] Nehemiah Vargas Glucose [Mass/Vol] 116 mg/dL Critically high 74-106 [facility] Comment on above: Performed By: #### C MP #### [facility] [address] [place] [address] [address] Nehemiah Vargas Potassium [Moles/Vol] 4.1 mmol/L Normal 3.5-5.1 [facility] Comment on above: Performed By: #### C MP #### [facility] [address] [place] [address] Dr. Nehemiah Vargas Protein [Mass/Vol] 7.1 g/dL Normal 6.4-8.2 [facility] Comment on above: Performed By: #### C MP #### [facility] [address] [place] [address] [address] Nehemiah Vargas Sodium [Moles/Vol] 139 mmol/L Normal 136-145 [facility] Comment on above: Performed By: #### C MP #### [facility] [address] [place] [address] [address] Nehemiah Vargas Urea nitrogen [Mass/Vol] 10.0 mg/dL Normal 7.0-18.0 [facility] Comment on above: Performed By: #### C MP #### [facility] [address] [place] [address] [address] Nehemiah Vargas Urea nitrogen/Creatinin e [Mass ratio] 11.6 mg/mg Normal [facility] Comment on above: Performed By: #### C MP #### [facility] [address] [place] [address] [address] Nehemiah Vargas VIT D 25-OH LABCORPon 2021 Vitamin D, 25-Hydroxy 42.1 ng/mL Normal 30.0-100.0 [facility] Comment on above: Result Comment: Bria min D deficiency has been defined by the [place] of [employer] and an Endocrine Society practice guideline as a level of serum 25-OH vitamin D less than 20 ng/mL (1,2). The Endocrine Society went on to further define vitamin D insufficiency as a level between 21 and 29 ng/mL (2). 1. IOM ([place] of [employer]). 2010. Dietary reference intakes for calcium and D. [place]: The National Academies Press. 2. Deana MF, Eddie NC, Migel AMADOR, et al. Evaluation, treatment, and prevention of vitamin D deficiency: an Endocrine Society clinical practice guideline. JCEM. 2010; 96(7):1911-30. Performed By: #### V ITADLC #### [facility] [address] [place] [address] [address] Nehemiah Vargas FREE T3on 04-08-2022 FREE T3 1.59 pg/mlL Critically low 2.18-3.98 [facility] Comment on above: Performed By: #### C BC #### [facility] [address] [place] [address] Dr. Nehemiah Vargas FREE T4on 04-08-2022 Free T4 [Mass/Vol] 0.78 ng/dL Normal 0.76-1.46 [facility] Comment on above: Performed By: #### C BC #### [facility] [address] [place] [address] Dr. Nehemiah Vargas TSHon 04-08-2022 TSH 0.219 uIU/mL Critically low 0.358-3.740 [facility] Comment on above: Performed By: #### C BC #### [facility] [address] [place] [address] Dr. Nehemiah Vargas PROLACTINon 01-23-2022 Prolactin 107.0 ng/mL Critically high 4.0-15.2 [facility] Comment on above: Performed By: #### C BC #### [facility] [address] [place] [address] Dr. Nehemiah Vargas CARDIAC HEIDI ADMITon 022 CK [Catalytic activity/Vol] 108 U/L Normal 39-308 [facility] Comment on above: Performed By: #### C BC #### [facility] [address] [place] [address] Dr. Nehemiah Vargas CK.MB [Mass/Vol] 3.01 ng/mL Normal <=3.60 [facility] Comment on above: Performed By: #### C BC #### [facility] [address] [place] [address] Dr. Nehemiah Vargas HSTROP 4.0 pg/mL Normal 4.0-76.1 [facility] Comment on above: Result Comment: CUT- OFF POINTS HAVE BEEN ESTABLISHED BASED ON THE FOURTH UNIVERSAL DEFINITIONS OF MYOCARDIAL INFARCTION. THE UPPER REFERENCE LIMIT (URL) OF TROPONIN, DEFINED THE 99TH PERCENTILE OF cTnI DISTRIBUTION IN A REFERENCE POPULATION, HAS BEEN CONFIRMED THE DECISION THRESHOLD FOR [place] DIAGNOSIS. Performed By: #### C BC #### [facility] [address] [place] [address] Dr. Nehemiah Vargas RICARDO 33 ng/mL Normal 16-96 [facility] Comment on above: Performed By: #### C BC #### [facility] [address] [place] [address] [address] Nehemiah Vargas CBC AUTO DIFFon 01-22-2022 BASO # 0.0 103/ul Normal 0.0-0.1 [facility] Comment on above: Performed By: #### C BC #### [facility] [address] [place] [address] [address] Nehemiah Vargas Basophils/100 WBC (Bld) 0.5 % Normal 0.2-2.0 [facility] Comment on above: Performed By: #### C BC #### [facility] [address] [place] [address] Dr. Nehemiah Vargas EO # 0.0 103/ul Normal 0.0-0.7 [facility] Comment on above: Performed By: #### C BC #### [facility] [address] [place] [address] Dr. Nehemiah Vargas Eosinophils/100 WBC (Bld) 0.3 % Critically low 0.9-7.0 [facility] Comment on above: Performed By: #### C BC #### [facility] [address] [place] [address] Dr. Nehemiah Vargas Erythrocyte distribution width (RBC) [Ratio] 12.4 % Normal 11.0-15.0 [facility] Comment on above: Performed By: #### C BC #### [facility] [address] [place] [address] Dr. Nehemiah Vargas Hematocrit (Bld) [Volume fraction] 43.1 % Normal 42.0-54.0 [facility] Comment on above: Performed By: #### C BC #### [facility] [address] [place] [address] Dr. Nehemiah Vargas Hemoglobin (Bld) [Mass/Vol] 14.6 g/dL Normal 14.0-18.0 [facility] Comment on above: Performed By: #### C BC #### [facility] [address] [place] [address] Dr. Nehemiah Vargas IG # 0.02 10e3/ul Normal 0.00-0.03 [facility] Comment on above: Performed By: #### C BC #### [facility] [address] [place] [address] Dr. Nehemiah Vargas IG % 0.3 % Normal 0.0-0.5 [facility] Comment on above: Performed By: #### C BC #### [facility] [address] [place] [address] Dr. Nehemiah Vargas LYMPH # 0.9 103/ul Critically low 1.2-3.8 [facility] Comment on above: Performed By: #### C BC #### [facility] [address] [place] [address] Dr. Nehemiah Vargas Lymphocytes/100 WBC (Bld) 13.1 % Critically low 20.5-60.0 [facility] Comment on above: Performed By: #### C BC #### [facility] [address] [place] [address] Dr. Nehemiah Vargas MANUAL DIFF REQ NO Normal [facility] Comment on above: Performed By: #### C BC #### [facility] [address] [place] [address] Dr. Nehemiah Vargas MCH (RBC) [Entitic mass] 30.0 pg Normal 25.9-34.0 [facility] Comment on above: Performed By: #### C BC #### [facility] [address] [place] [address] Dr. Nehemiah Vargas MCHC (RBC) [Mass/Vol] 33.9 g/dL Normal 29.9-35.2 [facility] Comment on above: Performed By: #### C BC #### [facility] [address] [place] [address] Dr. Nehemiah Vargas MCV (RBC) [Entitic vol] 88.7 fL Normal 80.0-94.0 [facility] Comment on above: Performed By: #### C BC #### [facility] [address] [place] [address] Dr. Nehemiah Vargas MONO # 0.4 103/ul Normal 0.3-0.8 [facility] Comment on above: Performed By: #### C BC #### [facility] [address] [place] [address] [address] Nehemiah Vargas Monocytes/100 WBC (Bld) 5.3 % Normal 1.7-12.0 [facility] Comment on above: Performed By: #### C BC #### [facility] [address] [place] [address] [address] Nehemiah Vargas NEUT # 5.4 103/ul Normal 1.4-6.5 [facility] Comment on above: Performed By: #### C BC #### [facility] [address] [place] [address] [address] Nehemiah Vargas Neutrophils/100 WBC (Bld) 80.5 % Critically high 43.0-75.0 [facility] Comment on above: Performed By: #### C BC #### [facility] [address] [place] [address] Dr. Nehemiah Vargas Platelet mean volume (Bld) [Entitic vol] 9.1 fL Critically low 9.5-13.5 [facility] Comment on above: Performed By: #### C BC #### [facility] [address] [address] [address] Nehemiah Vargas PLT 198 103/ul Normal 150-450 [facility] Comment on above: Performed By: #### C BC #### [facility] [address] [place] [address] Dr. Nehemiah Vargas RBC 4.86 106/ul Normal 4.70-6.10 [facility] Comment on above: Performed By: #### C BC #### [facility] [address] [place] [address] Dr. Nehemiah Vargas WBC 6.7 103/ul Normal 4.0-11.0 [facility] Comment on above: Performed By: #### C BC #### [facility] [address] [place] [address] HEAD WO CONon [...] by: IZZY CHAMPAGNE Date: 2022-01-22 12:00 Normal [facility] LACTATE/LACTIC ACIDon 2021 Lactate [Moles/Vol] 1.2 mmol/L Normal 0.4-1.9 [facility] Comment on above: Performed By: #### L ACT #### [facility] [address] [place] [address] Dr. Nehemiah Vargas LIPASEon 01-22-2022 Lipase [Catalytic activity/Vol] 95.0 U/L Normal 73.0-393.0 [facility] Comment on above: Performed By: #### C BC #### [facility] [address] [place] [address] Dr. Nehemiah Vargas PH VENOUS BLOODon 01-22-2022 PCO2 VENOUS 51.9 mmHg Normal 40.0-52.0 [facility] Comment on above: Performed By: #### C BC #### [facility] [address] [place] [address] Dr. Nehemiah Vargas pH VENOUS 7.301 Critically low 7.330-7.430 [facility] Comment on above: Performed By: #### C BC #### [facility] [address] [place] [address] Dr. Nehemiah Vargas PROF 14(COMP METB)on 022 Albumin [Mass/Vol] 3.7 g/dL Normal 3.4-5.0 [facility] Comment on above: Performed By: #### C BC #### [facility] [address] [place] [address] Dr. Nehemiah Vargas Albumin/Globulin [Mass ratio] 1.2 {ratio} Normal [facility] Comment on above: Performed By: #### C BC #### [facility] [address] [place] [address] Dr. Nehemiah Vargas ALP [Catalytic activity/Vol] 97 U/L Normal 46-116 [facility] Comment on above: Performed By: #### C BC #### [facility] [address] [place] [address] Dr. Nehemiah Vargas ALT [Catalytic activity/Vol] 26 U/L Normal 16-63 [facility] Comment on above: Performed By: #### C BC #### [facility] [address] [place] [address] Dr. Nehemiah Vargas Anion gap [Moles/Vol] 11.1 mmol/L Normal [facility] Comment on above: Performed By: #### C BC #### [facility] [address] [place] [address] Dr. Nehemiah Vargas AST [Catalytic activity/Vol] 20 U/L Normal 15-37 [facility] Comment on above: Performed By: #### C BC #### [facility] [address] [place] [address] Dr. Nehemiah Vargas Bilirubin [Mass/Vol] 0.4 mg/dL Normal 0.2-1.0 [facility] Comment on above: Performed By: #### C BC #### [facility] [address] [place] [address] Dr. Nehemiah Vargas Calcium [Mass/Vol] 8.4 mg/dL Critically low 8.5-10.1 [facility] Comment on above: Performed By: #### C BC #### [facility] [address] [place] [address] Dr. Nehemiah Vargas Chloride [Moles/Vol] 96 mmol/L Critically low 98-107 [facility] Comment on above: Performed By: #### C BC #### [facility] [address] [place] [address] Dr. Nehemiah Vargas CO2 [Moles/Vol] 28.1 mmol/L Normal 21.0-32.0 [facility] Comment on above: Performed By: #### C BC #### [facility] [address] [place] [address] Dr. Nehemiah Vargas Creatinine [Mass/Vol] 0.85 mg/dL Normal 0.70-1.30 [facility] Comment on above: Performed By: #### C BC #### [facility] [address] [place] [address] Dr. Nehemiah Vargas EGFR-AF SWEDISH >60 Normal >=60 [facility] Comment on above: Performed By: #### C BC #### [facility] [address] [place] [address] Dr. Nehemiah Vargas EGFR-NON AF SWEDISH >60 Normal >=60 [facility] Comment on above: Performed By: #### C BC #### [facility] [address] [place] [address] Dr. Nehemiah Vargas Globulin (S) [Mass/Vol] 3.1 g/dL Normal [facility] Comment on above: Performed By: #### C BC #### [facility] [address] [place] [address] Dr. Nehemiah Vargas Glucose [Mass/Vol] 138 mg/dL Critically high 74-106 T [facility] Comment on above: Performed By: #### C BC #### [facility] [address] [place] [address] Dr. Nehemiah Vargas Potassium [Moles/Vol] 4.2 mmol/L Normal 3.5-5.1 [facility] Comment on above: Performed By: #### C BC #### [facility] [address] [place] [address] Dr. Nehemiah Vargas Protein [Mass/Vol] 6.8 g/dL Normal 6.4-8.2 [facility] Comment on above: Performed By: #### C BC #### [facility] [address] [place] [address] Dr. Nehemiah Vargas Sodium [Moles/Vol] 131 mmol/L Critically low 136-145 Th [facility] Comment on above: Performed By: #### C BC #### [facility] [address] [address] [address] Nehemiah Vargas Urea nitrogen [Mass/Vol] 7.0 mg/dL Normal 7.0-18.0 [facility] Comment on above: Performed By: #### C BC #### [facility] [address] [address] [address] Neheimah Vargas Urea nitrogen/Creatinin e [Mass ratio] 8.2 mg/mg Normal [facility] Comment on above: Performed By: #### C BC #### [facility] [address] [place] [address] Dr. Nehemiah Vargas TSHon 01-22-2022 TSH 1.003 uIU/mL Normal 0.358-3.740 [facility] Comment on above: Performed By: #### C BC #### [facility] [address] [place] [address] Dr. Nehemiah Vargas TSH RANGE SEE BELOW Normal [facility] Comment on above: Result Comment: <0.3 4 UIU/ml HYPERTHYROID 0.34-5.60 UIU/ml EUTHYROID >5.60 UIU/ml HYPOTHYROID Performed By: #### C BC #### [facility] [address] [place] [address] Dr. Nehemiah Vargas XR CHEST 1 Von [...] IZZY [place] Date: 2022-01-22 12:01 Normal [facility] CBC AUTO DIFFon 01-19-2022 BASO # 0.0 103/ul Normal 0.0-0.1 [facility] Comment on above: Performed By: #### C BC #### [facility] [address] [address] [address] Nehemiah Vargas Basophils/100 WBC (Bld) 0.4 % Normal 0.2-2.0 [facility] Comment on above: Performed By: #### C BC #### [facility] [address] [address] [address] Nehemiah Vargas EO # 0.1 103/ul Normal 0.0-0.7 [facility] Comment on above: Performed By: #### C BC #### [facility] [address] [address] [address] Nehemiah Vargas Eosinophils/100 WBC (Bld) 1.3 % Normal 0.9-7.0 [facility] Comment on above: Performed By: #### C BC #### [facility] [address] [place] [address] Dr. Nehemiah Vargas Erythrocyte distribution width (RBC) [Ratio] 12.9 % Normal 11.0-15.0 [facility] Comment on above: Performed By: #### C BC #### [facility] [address] [place] [address] Dr. Nehemiah Vargas Hematocrit (Bld) [Volume fraction] 42.8 % Normal 42.0-54.0 [facility] Comment on above: Performed By: #### C BC #### [facility] [address] [place] [address] Dr. Nehemiah Vargas Hemoglobin (Bld) [Mass/Vol] 13.9 g/dL Critically low 14.0-18.0 [facility] Comment on above: Performed By: #### C BC #### [facility] [address] [place] [address] Dr. Nehemiah Vargas IG # 0.02 10e3/ul Normal 0.00-0.03 [facility] Comment on above: Performed By: #### C BC #### [facility] [address] [address] [address] Nehemiah Vargas IG % 0.3 % Normal 0.0-0.5 [facility] Comment on above: Performed By: #### C BC #### [facility] [address] [place] [address] Dr. Nehemiah Vagras LYMPH # 1.8 103/ul Normal 1.2-3.8 [facility] Comment on above: Performed By: #### C BC #### [facility] [address] [place] [address] Dr. Nehemiah Vargas Lymphocytes/100 WBC (Bld) 26.5 % Normal 20.5-60.0 [facility] Comment on above: Performed By: #### C BC #### [facility] [address] [place] [address] Dr. Nehemiah Vargas MANUAL DIFF REQ NO Normal [facility] Comment on above: Performed By: #### C BC #### [facility] [address] [place] [address] Dr. Nehemiah Vargas MCH (RBC) [Entitic mass] 29.6 pg Normal 25.9-34.0 [facility] Comment on above: Performed By: #### C BC #### [facility] [address] [place] [address] Dr. Nehemiah Vargas MCHC (RBC) [Mass/Vol] 32.5 g/dL Normal 29.9-35.2 [facility] Comment on above: Performed By: #### C BC #### [facility] [address] [place] [address] Dr. Nehemiah Vargas MCV (RBC) [Entitic vol] 91.1 fL Normal 80.0-94.0 [facility] Comment on above: Performed By: #### C BC #### [facility] [address] [place] [address] Dr. Nehemiah Vargas MONO # 0.5 103/ul Normal 0.3-0.8 [facility] Comment on above: Performed By: #### C BC #### [facility] [address] [place] [address] Dr. Nehemiah Vargas Monocytes/100 WBC (Bld) 6.9 % Normal 1.7-12.0 [facility] Comment on above: Performed By: #### C BC #### [facility] [address] [place] [address] Dr. Nehemiah Vargas NEUT # 4.4 103/ul Normal 1.4-6.5 [facility] Comment on above: Performed By: #### C BC #### [facility] [address] [place] [address] Dr. Nehemiah Vargas Neutrophils/100 WBC (Bld) 64.6 % Normal 43.0-75.0 [facility] Comment on above: Performed By: #### C BC #### [facility] [address] [place] [address] Dr. Nehemiah Vargas Platelet mean volume (Bld) [Entitic vol] 10.3 fL Normal 9.5-13.5 [facility] Comment on above: Performed By: #### C BC #### [facility] [address] [place] [address] Dr. Nehemiah Vargas PLT 193 103/ul Normal 150-450 [facility] Comment on above: Performed By: #### C BC #### [facility] [address] [place] [address] Dr. Nehemiah Vargas RBC 4.70 106/ul Normal 4.70-6.10 [facility] Comment on above: Performed By: #### C BC #### [facility] [address] [place] [address] Dr. Nehemiah Vargas WBC 6.8 103/ul Normal 4.0-11.0 [facility] Comment on above: Performed By: #### C BC #### [facility] [address] [place] [address] Dr. Nehemiah Vargas PROF CHEM 8 (BAS METB)on Anion gap [Moles/Vol] 8.7 mmol/L Normal [facility] Comment on above: Performed By: #### C BC #### [facility] [address] [place] [address] Dr. Nehemiah Vargas Calcium [Mass/Vol] 8.6 mg/dL Normal 8.5-10.1 [facility] Comment on above: Performed By: #### C BC #### [facility] [address] [address] [address] Nehemiah Vargas Chloride [Moles/Vol] 100 mmol/L Normal 98-107 [facility] Comment on above: Performed By: #### C BC #### [facility] [address] [place] [address] Dr. Nehemiah Vargas CO2 [Moles/Vol] 29.8 mmol/L Normal 21.0-32.0 [facility] Comment on above: Performed By: #### C BC #### [facility] [address] [place] [address] Dr. Nehemiah Vargas Creatinine [Mass/Vol] 0.88 mg/dL Normal 0.70-1.30 [facility] Comment on above: Performed By: #### C BC #### [facility] [address] [place] [address] Dr. Nehemiah Vargas EGFR-AF SWEDISH >60 Normal >=60 [facility] Comment on above: Performed By: #### C BC #### [facility] [address] [place] [address] Dr. Nehemiah Vargas EGFR-NON AF SWEDISH >60 Normal >=60 [facility] Comment on above: Performed By: #### C BC #### [facility] [address] [place] [address] Dr. Nehemiah Vargas Glucose [Mass/Vol] 107 mg/dL Critically high 74-106 [facility] Comment on above: Performed By: #### C BC #### [facility] [address] [place] [address] Dr. Nehemiah Vargas Potassium [Moles/Vol] 4.5 mmol/L Normal 3.5-5.1 [facility] Comment on above: Performed By: #### C BC #### [facility] [address] [place] [address] Dr. Nehemiah Vargas Sodium [Moles/Vol] 134 mmol/L Critically low 136-145 Th [facility] Comment on above: Performed By: #### C BC #### [facility] [address] [place] [address] Dr. Nehemiah Vargas Urea nitrogen [Mass/Vol] 9.0 mg/dL Normal 7.0-18.0 [facility] Comment on above: Performed By: #### C BC #### [facility] [address] [place] [address] Dr. Nehemiah Vargas Urea nitrogen/Creatinin e [Mass ratio] 10.2 mg/mg Normal [facility] Comment on above: Performed By: #### C BC #### [facility] [address] [address] [address] Nehemiah Vargas TSHon 01-19-2022 TSH 0.322 uIU/mL Critically low 0.358-3.740 [facility] Comment on above: Performed By: #### C BC #### [facility] [address] [place] [address] Dr. Nehemiah Vargas TSH RANGE SEE BELOW Normal [facility] Comment on above: Result Comment: <0.3 4 UIU/ml HYPERTHYROID 0.34-5.60 UIU/ml EUTHYROID >5.60 UIU/ml HYPOTHYROID Performed By: #### C BC #### [facility] [address] [place] [address] Dr. Nehemiah Vargas CARDIAC HEIDI ADMITon 022 CK [Catalytic activity/Vol] 124 U/L Normal 39-308 [facility] Comment on above: Performed By: #### C MADM, CMP, ETH #### [facility] [address] [place] [address] Dr. Nehemiah Vargas CK.MB [Mass/Vol] 3.55 ng/mL Normal <=3.60 [facility] Comment on above: Performed By: #### C MADM, CMP, ETH #### [facility] [address] [place] [address] Dr. Nehemiah Vargas HSTROP 5.7 pg/mL Normal 4.0-76.1 [facility] Comment on above: Result Comment: CUT- OFF POINTS HAVE BEEN ESTABLISHED BASED ON THE FOURTH UNIVERSAL DEFINITIONS OF MYOCARDIAL INFARCTION. THE UPPER REFERENCE LIMIT (URL) OF TROPONIN, DEFINED THE 99TH PERCENTILE OF cTnI DISTRIBUTION IN A REFERENCE POPULATION, HAS BEEN CONFIRMED THE DECISION THRESHOLD FOR [place] DIAGNOSIS. Performed By: #### C SADIE VALLEJO, ETH #### [facility] [address] [address] [address] Nehemiah Vargas RICARDO 62 ng/mL Normal 16-96 [facility] Comment on above: Performed By: #### C GENEVAM, CMP, ETH #### [facility] [address] [address] [address] Nehemiah Vargas CBC AUTO DIFFon 01-18-2022 BASO # 0.0 103/ul Normal 0.0-0.1 [facility] Comment on above: Performed By: #### C BC #### [facility] [address] [address] [address] Nehemiah Vargas Basophils/100 WBC (Bld) 0.4 % Normal 0.2-2.0 [facility] Comment on above: Performed By: #### C BC #### [facility] [address] [place] [address] Dr. Nehemiah Vargas EO # 0.1 103/ul Normal 0.0-0.7 [facility] Comment on above: Performed By: #### C BC #### [facility] [address] [address] [address] Nehemiah Vargas Eosinophils/100 WBC (Bld) 0.8 % Critically low 0.9-7.0 [facility] Comment on above: Performed By: #### C BC #### [facility] [address] [address] [address] Nehemiah Vargas Erythrocyte distribution width (RBC) [Ratio] 12.5 % Normal 11.0-15.0 [facility] Comment on above: Performed By: #### C BC #### [facility] [address] [place] [address] Dr. Nehemiah Vargas Hematocrit (Bld) [Volume fraction] 43.9 % Normal 42.0-54.0 [facility] Comment on above: Performed By: #### C BC #### [facility] [address] [place] [address] Dr. Nehemiah Vargas Hemoglobin (Bld) [Mass/Vol] 14.3 g/dL Normal 14.0-18.0 [facility] Comment on above: Performed By: #### C BC #### [facility] [address] [address] [address] Nehemiah Vargas IG # 0.03 10e3/ul Normal 0.00-0.03 [facility] Comment on above: Performed By: #### C BC #### [facility] [address] [address] [address] Nehemiah Vargas IG % 0.3 % Normal 0.0-0.5 [facility] Comment on above: Performed By: #### C BC #### [facility] [address] [place] [address] Dr. Nehemiah Vargas LYMPH # 0.9 103/ul Critically low 1.2-3.8 [facility] Comment on above: Performed By: #### C BC #### [facility] [address] [place] [address] Dr. Nehemiah Vargas Lymphocytes/100 WBC (Bld) 9.4 % Critically low 20.5-60.0 [facility] Comment on above: Performed By: #### C BC #### [facility] [address] [place] [address] Dr. Nehemiah Vargas MANUAL DIFF REQ NO Normal [facility] Comment on above: Performed By: #### C BC #### [facility] [address] [place] [address] Dr. Nehemiah Vargas MCH (RBC) [Entitic mass] 29.9 pg Normal 25.9-34.0 [facility] Comment on above: Performed By: #### C BC #### [facility] [address] [place] [address] Dr. Nehemiah Vargas MCHC (RBC) [Mass/Vol] 32.6 g/dL Normal 29.9-35.2 [facility] Comment on above: Performed By: #### C BC #### [facility] [address] [place] [address] Dr. Nehemiah Vargas MCV (RBC) [Entitic vol] 91.6 fL Normal 80.0-94.0 [facility] Comment on above: Performed By: #### C BC #### [facility] [address] [address] [address] Nehemiah Vargas MONO # 0.5 103/ul Normal 0.3-0.8 [facility] Comment on above: Performed By: #### C BC #### [facility] [address] [address] [address] Neheimah Vargas Monocytes/100 WBC (Bld) 5.5 % Normal 1.7-12.0 [facility] Comment on above: Performed By: #### C BC #### [facility] [address] [place] [address] Dr. Nehemiah Vargas NEUT # 7.6 103/ul Critically high 1.4-6.5 [facility] Comment on above: Performed By: #### C BC #### [facility] [address] [place] [address] Dr. Nehemiah Vargas Neutrophils/100 WBC (Bld) 83.6 % Critically high 43.0-75.0 [facility] Comment on above: Performed By: #### C BC #### [facility] [address] [place] [address] Dr. Nehemiah Vargas Platelet mean volume (Bld) [Entitic vol] 9.1 fL Critically low 9.5-13.5 [facility] Comment on above: Performed By: #### C BC #### [facility] [address] [place] [address] Dr. Nehemiah Vargas PLT 169 103/ul Normal 150-450 [facility] Comment on above: Performed By: #### C BC #### [facility] [address] [place] [address] Dr. Nehemiah Vargas RBC 4.79 106/ul Normal 4.70-6.10 [facility] Comment on above: Performed By: #### C BC #### [facility] [address] [place] [address] Dr. Nehemiah Vargas WBC 9.1 103/ul Normal 4.0-11.0 [facility] Comment on above: Performed By: #### C BC #### [facility] [address] [place] [address] Dr. Nehemiah Vargas DRUG SCREEN RAPID (URINE)on 01-18-2022 AMP Negative Normal NEGATIVE [facility] Comment on above: Performed By: #### C BC #### [facility] [address] [place] [address] Dr. Nehemiah Vargas BAR Negative Normal NEGATIVE [facility] Comment on above: Performed By: #### C BC #### [facility] [address] [place] [address] Dr. Nehemiah Vargas BUP Negative Normal NEGATIVE [facility] Comment on above: Performed By: #### C BC #### [facility] [address] [place] [address] Dr. Nehemiah Vargas BZO Positive Abnormal NEGATIVE [facility] Comment on above: Performed By: #### C BC #### [facility] [address] [place] [address] Dr. Nehemiah Vagras JILLIAN Negative Normal NEGATIVE [facility] Comment on above: Performed By: #### C BC #### [facility] [address] [place] [address] Dr. Nehemiah Vargas CUT-OFFS SEE BELOW Normal [facility] Comment on above: Result Comment: [...] ng/mL Performed By: #### C BC #### [facility] [address] [place] [address] Dr. Nehemiah Vargas DRUG CUT HEADER DRUG CLASS TEST SYSTEM CUT-OFF CONCENTRATIONS ARE FOLLOWS: Normal [facility] Comment on above: Performed By: #### C BC #### [facility] [address] [place] [address] Dr. Nehemiah Vargas mAMP Negative Normal NEGATIVE [facility] Comment on above: Performed By: #### C BC #### [facility] [address] [place] [address] Dr. Nehemiah Vargas MTD Negative Normal NEGATIVE [facility] Comment on above: Performed By: #### C BC #### [facility] [address] [place] [address] Dr. Nehemiah Vargas OPI Negative Normal NEGATIVE [facility] Comment on above: Performed By: #### C BC #### [facility] [address] [place] [address] Dr. Nehemiah Vargas OXY Negative Normal NEGATIVE [facility] Comment on above: Performed By: #### C BC #### [facility] [address] [place] [address] Dr. Nehemiah Vargas PCP Negative Normal NEGATIVE [facility] Comment on above: Performed By: #### C BC #### [facility] [address] [place] [address] Dr. Nehemiah Vargas PPX Negative Normal NEGATIVE [facility] Comment on above: Performed By: #### C BC #### [facility] [address] [place] [address] Dr. Nehemiah Vargas TCA Positive Abnormal NEGATIVE [facility] Comment on above: Performed By: #### C BC #### [facility] [address] [place] [address] Dr. Nehemiah Vargas THC Positive Abnormal NEGATIVE [facility] Comment on above: Performed By: #### C BC #### [facility] [address] [place] [address] Dr. Nehemiah Vargas ER URINE PROFILEon 2 Bilirubin Ql (U) Negative Normal NEGATIVE [facility] Comment on above: Performed By: #### C BC #### [facility] [address] [place] [address] Dr. Nehemiah Vargas Clarity (U) CLEAR Normal CLEAR [facility] Comment on above: Performed By: #### C BC #### [facility] [address] [place] [address] Dr. Nehemiah Vargas Color (U) YELLOW Normal YELLOW [facility] Comment on above: Performed By: #### C BC #### [facility] [address] [place] [address] Dr. Nehemiah SANTO A micrscopic examination will be performed if indicated. Normal [facility] Comment on above: Performed By: #### C BC #### [facility] [address] [place] [address] Dr. Nehemiah Vargas Glucose Ql (U) Negative Normal NEGATIVE [facility] Comment on above: Performed By: #### C BC #### [facility] [address] [place] [address] Dr. Nehemiah Vargas Hemoglobin Ql (U) Negative Normal NEGATIVE [facility] Comment on above: Performed By: #### C BC #### [facility] [address] [place] [address] Dr. Nehemiah Vargas Ketones Ql (U) Negative Normal NEGATIVE [facility] Comment on above: Performed By: #### C BC #### [facility] [address] [place] [address] Dr. Nehemiah Vargas LEUKOCYTES Negative Normal NEGATIVE [facility] Comment on above: Performed By: #### C BC #### [facility] [address] [place] [address] Dr. Nehemiah Vargas Nitrite Ql (U) Negative Normal NEGATIVE [facility] Comment on above: Performed By: #### C BC #### [facility] [address] [place] [address] Dr. Nehemiah Vargas pH (U) 6.0 [pH] Normal 5-9 [facility] Comment on above: Performed By: #### C BC #### [facility] [address] [place] [address] Dr. Nehemiah Vargas Protein (U) [Mass/Vol] 30 mg/dL Abnormal NEGATIVE/ TRACE [facility] Comment on above: Performed By: #### C BC #### [facility] [address] [place] [address] Dr. Nehemiah Vargas SPEC GRAVITY >=1.030 Abnormal 1.005-<=1.025 [facility] Comment on above: Performed By: #### C BC #### [facility] [address] [place] [address] Dr. Nehemiah Vargas UR MICRO IND INDICATED Normal [facility] Comment on above: Performed By: #### C BC #### [facility] [address] [place] [address] Dr. Nehemiah Vargas Urobilinogen Qn (U) 0.2 {Stevenson'U}/dL Normal 0.2 - 1.0 [facility] Comment on above: Performed By: #### C BC #### [facility] [address] [place] [address] Dr. Nehemiah Vargas ETHANOL (BLD ALC)on 01-19-20 22 ALC NOTE NOTE: 80 mg/dl is th e legal limit for a blood alcohol level Normal [facility] Comment on above: Performed By: #### C SADIE VALLEJO, ETH #### [facility] [address] [place] [address] Dr. Nehemiah Vargas Ethanol [Mass/Vol] mg/dL Normal [facility] Comment on above: Performed By: #### C SADIE VALLEJO, ETH #### [facility] [address] [place] [address] Dr. Nehemiah Vargas PROF 14(COMP METB)on 022 Albumin [Mass/Vol] 3.5 g/dL Normal 3.4-5.0 [facility] Comment on above: Performed By: #### C SADIE VALLEJO, ETH #### [facility] [address] [place] [address] Dr. Nehemiah Vargas Albumin/Globulin [Mass ratio] 1.2 {ratio} Normal [facility] Comment on above: Performed By: #### C SADIE VALLEJO, ETH #### [facility] [address] [place] [address] Dr. Nehemiah Vargas ALP [Catalytic activity/Vol] 94 U/L Normal 46-116 [facility] Comment on above: Performed By: #### C SADIE VALLEJO, ETH #### [facility] [address] [address] [address] Nehemiah Vargas ALT [Catalytic activity/Vol] 25 U/L Normal 16-63 [facility] Comment on above: Performed By: #### C MADM, CMP, ETH #### [facility] [address] [address] [address] Nehemiah Vargas Anion gap [Moles/Vol] 10.3 mmol/L Normal [facility] Comment on above: Performed By: #### C MADM, CMP, ETH #### [facility] [address] [address] [address] Nehemiah Vargas AST [Catalytic activity/Vol] 18 U/L Normal 15-37 [facility] Comment on above: Performed By: #### C MADM, CMP, ETH #### [facility] [address] [place] [address] Dr. Nehemiah Vargas Bilirubin [Mass/Vol] 0.3 mg/dL Normal 0.2-1.0 [facility] Comment on above: Performed By: #### C MADM, CMP, ETH #### [facility] [address] [address] [address] Nehemiah Vargas Calcium [Mass/Vol] 8.4 mg/dL Critically low 8.5-10.1 [facility] Comment on above: Performed By: #### C MADM, CMP, ETH #### [facility] [address] [place] [place] [address] Dr. Nehemiah Vargas Chloride [Moles/Vol] 98 mmol/L Normal 98-107 [facility] Comment on above: Performed By: #### C MADM, CMP, ETH #### [facility] [address] [place] [address] Dr. Nehemiah Vargas CO2 [Moles/Vol] 29.1 mmol/L Normal 21.0-32.0 [facility] Comment on above: Performed By: #### C MADM, CMP, ETH #### [facility] [address] [address] [address] Nehemiah Vargas Creatinine [Mass/Vol] 0.78 mg/dL Normal 0.70-1.30 [facility] Comment on above: Performed By: #### C MADM, CMP, ETH #### [facility] [address] [address] [address] Nehemiah Vargas EGFR-AF SWEDISH >60 Normal >=60 [facility] Comment on above: Performed By: #### C MADM, CMP, ETH #### [facility] [address] [address] [address] Nehemiah Vargas EGFR-NON AF SWEDISH >60 Normal >=60 [facility] Comment on above: Performed By: #### C MADM, CMP, ETH #### [facility] [address] [address] [address] Nehemiah Vargas Globulin (S) [Mass/Vol] 3.0 g/dL Normal [facility] Comment on above: Performed By: #### C MADM, CMP, ETH #### [facility] [address] [place] [address] Dr. Nehemiah Vargas Glucose [Mass/Vol] 128 mg/dL Critically high 74-106 T [facility] Comment on above: Performed By: #### C MADM, CMP, ETH #### [facility] [address] [address] [address] Nehemiah Vargas Potassium [Moles/Vol] 4.4 mmol/L Normal 3.5-5.1 [facility] Comment on above: Performed By: #### C MADM, CMP, ETH #### [facility] [address] [address] [address] Nehemiah Vargas Protein [Mass/Vol] 6.5 g/dL Normal 6.4-8.2 [facility] Comment on above: Performed By: #### C MADM, CMP, ETH #### [facility] [address] [address] [address] Nehemiah Vargas Sodium [Moles/Vol] 133 mmol/L Critically low 136-145 Th [facility] Comment on above: Performed By: #### C MADM, CMP, ETH #### [facility] [address] [address] [address] Nehemiah Vargas Urea nitrogen [Mass/Vol] 7.0 mg/dL Normal 7.0-18.0 [facility] Comment on above: Performed By: #### C SADIE VALLEJO, ETH #### [facility] [address] [place] [address] Dr. Nehemiah Vargas Urea nitrogen/Creatinin e [Mass ratio] 9.0 mg/mg Normal [facility] Comment on above: Performed By: #### C SADIE VALLEJO, ETH #### [facility] [address] [place] [address] Dr. Nehemiah Vargas URINE MICROSCOPIC ONLYon BACTERIA NONE SEEN Normal NONE SEEN [facility] Comment on above: Performed By: #### C BC #### [facility] [address] [place] [address] Dr. Nehemiah Vargas Bacteria identified Cx Nom (U) NOT INDICATED Normal [facility] Comment on above: Performed By: #### C BC #### [facility] [address] [place] [address] Dr. Nehemiah Vargas CAST NONE SEEN Normal NONE SEEN [facility] Comment on above: Performed By: #### C BC #### [facility] [address] [place] [address] Dr. Nehemiah Vargas Crystals LM Nom (Urine sed) NONE SEEN Normal NONE SEEN [facility] Comment on above: Performed By: #### C BC #### [facility] [address] [place] [address] Dr. Nehemiah Vargas Epithelial cells LM Ql (Urine sed) NONE SEEN Normal NONE SEEN /RARE [facility] Comment on above: Performed By: #### C BC #### [facility] [address] [place] [address] Dr. Nehemiah Vargas MUCOUS TRACE Abnormal NONE SEEN [facility] Comment on above: Performed By: #### C BC #### [facility] [address] [place] [address] Dr. Nehemiah Vargas RBC NONE SEEN Abnormal 0-2 [facility] Comment on above: Performed By: #### C BC #### [facility] [address] [place] [address] Dr. Nehemiah Vargas WBC 0-2 Abnormal NONE SEEN [facility] Comment on above: Performed By: #### C BC #### [facility] [address] [place] [address] Dr. Nehemiah Vargas CBC AUTO DIFFon 01-08-2022 BASO # 0.0 103/ul Normal 0.0-0.1 [facility] Comment on above: Performed By: #### C BC #### [facility] [address] [place] [address] Dr. Nehemiah Vargas Basophils/100 WBC (Bld) 0.3 % Normal 0.2-2.0 [facility] Comment on above: Performed By: #### C BC #### [facility] [address] [place] [address] Dr. Nehemiah Vargas EO # 0.1 103/ul Normal 0.0-0.7 [facility] Comment on above: Performed By: #### C BC #### [facility] [address] [place] [address] Dr. Nehemiah Vargas Eosinophils/100 WBC (Bld) 1.3 % Normal 0.9-7.0 [facility] Comment on above: Performed By: #### C BC #### [facility] [address] [place] [address] Dr. Nehemiah Vargas Erythrocyte distribution width (RBC) [Ratio] 12.6 % Normal 11.0-15.0 [facility] Comment on above: Performed By: #### C BC #### [facility] [address] [place] [address] Dr. Nehemiah Vargas Hematocrit (Bld) [Volume fraction] 44.9 % Normal 42.0-54.0 [facility] Comment on above: Performed By: #### C BC #### [facility] [address] [place] [address] Dr. Nehemiah Vargas Hemoglobin (Bld) [Mass/Vol] 14.8 g/dL Normal 14.0-18.0 [facility] Comment on above: Performed By: #### C BC #### [facility] [address] [place] [address] Dr. Nehemiah Vargas IG # 0.01 10e3/ul Normal 0.00-0.03 [facility] Comment on above: Performed By: #### C BC #### [facility] [address] [place] [address] Dr. Nehemiah Vargas IG % 0.1 % Normal 0.0-0.5 [facility] Comment on above: Performed By: #### C BC #### [facility] [address] [place] [address] Dr. Nehemiah Vargas LYMPH # 1.7 103/ul Normal 1.2-3.8 [facility] Comment on above: Performed By: #### C BC #### [facility] [address] [place] [address] Dr. Nehemiah Vargas Lymphocytes/100 WBC (Bld) 25.0 % Normal 20.5-60.0 [facility] Comment on above: Performed By: #### C BC #### [facility] [address] [place] [address] Dr. Nehemiah Vargas MANUAL DIFF REQ NO Normal [facility] Comment on above: Performed By: #### C BC #### [facility] [address] [place] [address] Dr. Nehemiah Vargas MCH (RBC) [Entitic mass] 30.1 pg Normal 25.9-34.0 [facility] Comment on above: Performed By: #### C BC #### [facility] [address] [place] [address] Dr. Nehemiah Vargas MCHC (RBC) [Mass/Vol] 33.0 g/dL Normal 29.9-35.2 [facility] Comment on above: Performed By: #### C BC #### [facility] [address] [place] [address] Dr. Nehemiah Vargas MCV (RBC) [Entitic vol] 91.4 fL Normal 80.0-94.0 [facility] Comment on above: Performed By: #### C BC #### [facility] [address] [place] [address] Dr. Nehemiah Vargas MONO # 0.5 103/ul Normal 0.3-0.8 [facility] Comment on above: Performed By: #### C BC #### [facility] [address] [address] [address] Nehemiah Vargas Monocytes/100 WBC (Bld) 7.5 % Normal 1.7-12.0 [facility] Comment on above: Performed By: #### C BC #### [facility] [address] [place] [address] Dr. Nehemiah Vargas NEUT # 4.6 103/ul Normal 1.4-6.5 [facility] Comment on above: Performed By: #### C BC #### [facility] [address] [place] [address] Dr. Nehemiah Vargas Neutrophils/100 WBC (Bld) 65.8 % Normal 43.0-75.0 [facility] Comment on above: Performed By: #### C BC #### [facility] [address] [place] [address] Dr. Nehemiah Vargas Platelet mean volume (Bld) [Entitic vol] 9.7 fL Normal 9.5-13.5 [facility] Comment on above: Performed By: #### C BC #### [facility] [address] [place] [address] Dr. Nehemiah Vargas PLT 169 103/ul Normal 150-450 [facility] Comment on above: Performed By: #### C BC #### [facility] [address] [place] [address] Dr. Nehemiah Vargas RBC 4.91 106/ul Normal 4.70-6.10 [facility] Comment on above: Performed By: #### C BC #### [facility] [address] [place] [address] Dr. Nehemiah Vargas WBC 6.9 103/ul Normal 4.0-11.0 [facility] Comment on above: Performed By: #### C BC #### [facility] [address] [place] [address] Dr. Nehemiah Vargas PROF CHEM 8 (BAS METB)on Anion gap [Moles/Vol] 14.5 mmol/L Normal [facility] Comment on above: Performed By: #### C BC #### [facility] [address] [address] [address] Nehemiah Vargas Calcium [Mass/Vol] 8.9 mg/dL Normal 8.5-10.1 [facility] Comment on above: Performed By: #### C BC #### [facility] [address] [address] [address] Nehemiah Vargas Chloride [Moles/Vol] 98 mmol/L Normal 98-107 [facility] Comment on above: Performed By: #### C BC #### [facility] [address] [address] [address] Nehemiah Vargas CO2 [Moles/Vol] 24.4 mmol/L Normal 21.0-32.0 [facility] Comment on above: Performed By: #### C BC #### [facility] [address] [address] [address] Nehemiah Vargas Creatinine [Mass/Vol] 0.88 mg/dL Normal 0.70-1.30 [facility] Comment on above: Performed By: #### C BC #### [facility] [address] [address] [address] Nehemiah Vargas EGFR-AF SWEDISH >60 Normal >=60 [facility] Comment on above: Performed By: #### C BC #### [facility] [address] [address] [address] Nehemiah Vargas EGFR-NON AF SWEDISH >60 Normal >=60 [facility] Comment on above: Performed By: #### C BC #### [facility] [address] [address] [address] Nehemiah Vargas Glucose [Mass/Vol] 152 mg/dL Critically high 74-106 [facility] Comment on above: Performed By: #### C BC #### [facility] [address] [address] [address] Nehemiah Vargas Potassium [Moles/Vol] 3.9 mmol/L Normal 3.5-5.1 [facility] Comment on above: Performed By: #### C BC #### [facility] [address] [place] [address] Dr. Nehemiah Vargas Sodium [Moles/Vol] 133 mmol/L Critically low 136-145 Th [facility] Comment on above: Performed By: #### C BC #### [facility] [address] [place] [address] Dr. Nehemiah Vargas Urea nitrogen [Mass/Vol] 7.0 mg/dL Normal 7.0-18.0 [facility] Comment on above: Performed By: #### C BC #### [facility] [address] [place] [address] Dr. Nehemiah Vargas Urea nitrogen/Creatinin e [Mass ratio] 8.0 mg/mg Normal [facility] Comment on above: Performed By: #### C BC #### [facility] [address] [place] [address] Dr. Nehemiah Vargas CBC AUTO DIFFon 12-15-2021 BASO # 0.1 103/ul Normal 0.0-0.1 [facility] Comment on above: Performed By: #### C BC #### [facility] [address] [place] [address] Dr. Nehemiah Vargas Basophils/100 WBC (Bld) 0.5 % Normal 0.2-2.0 [facility] Comment on above: Performed By: #### C BC #### [facility] [address] [place] [address] Dr. Nehemiah Vargas EO # 0.2 103/ul Normal 0.0-0.7 [facility] Comment on above: Performed By: #### C BC #### [facility] [address] [place] [address] Dr. Nehemiah Vargas Eosinophils/100 WBC (Bld) 1.5 % Normal 0.9-7.0 [facility] Comment on above: Performed By: #### C BC #### [facility] [address] [place] [address] Dr. Nehemiah Vargas Erythrocyte distribution width (RBC) [Ratio] 12.9 % Normal 11.0-15.0 [facility] Comment on above: Performed By: #### C BC #### [facility] [address] [place] [address] Dr. Nehemiah Vargas Hematocrit (Bld) [Volume fraction] 47.2 % Normal 42.0-54.0 [facility] Comment on above: Performed By: #### C BC #### [facility] [address] [place] [address] Dr. Nehemiah Vargas Hemoglobin (Bld) [Mass/Vol] 15.6 g/dL Normal 14.0-18.0 [facility] Comment on above: Performed By: #### C BC #### [facility] [address] [place] [address] Dr. Nehemiah Vargas IG # 0.02 10e3/ul Normal 0.00-0.03 [facility] Comment on above: Performed By: #### C BC #### [facility] [address] [place] [address] Dr. Nehemiah Vargas IG % 0.2 % Normal 0.0-0.5 [facility] Comment on above: Performed By: #### C BC #### [facility] [address] [place] [address] Dr. Nehemiah Vargas LYMPH # 1.5 103/ul Normal 1.2-3.8 [facility] Comment on above: Performed By: #### C BC #### [facility] [address] [place] [address] Dr. Nehemiah Vargas Lymphocytes/100 WBC (Bld) 13.4 % Critically low 20.5-60.0 [facility] Comment on above: Performed By: #### C BC #### [facility] [address] [place] [address] Dr. Nehemiah Vargas MANUAL DIFF REQ NO Normal [facility] Comment on above: Performed By: #### C BC #### [facility] [address] [place] [address] Dr. Nehemiah Vargas MCH (RBC) [Entitic mass] 30.2 pg Normal 25.9-34.0 [facility] Comment on above: Performed By: #### C BC #### [facility] [address] [place] [address] Dr. Nehemiah Vargas MCHC (RBC) [Mass/Vol] 33.1 g/dL Normal 29.9-35.2 [facility] Comment on above: Performed By: #### C BC #### [facility] [address] [address] [address] Nehemiah Vargas MCV (RBC) [Entitic vol] 91.3 fL Normal 80.0-94.0 [facility] Comment on above: Performed By: #### C BC #### [facility] [address] [address] [address] Nehemiah Vargas MONO # 0.8 103/ul Normal 0.3-0.8 [facility] Comment on above: Performed By: #### C BC #### [facility] [address] [place] [address] Dr. Nehemiah Vargas Monocytes/100 WBC (Bld) 7.2 % Normal 1.7-12.0 [facility] Comment on above: Performed By: #### C BC #### [facility] [address] [place] [address] Dr. Nehemiah Vargas NEUT # 8.4 103/ul Critically high 1.4-6.5 [facility] Comment on above: Performed By: #### C BC #### [facility] [address] [place] [address] Dr. Nehemiah Vargas Neutrophils/100 WBC (Bld) 77.2 % Critically high 43.0-75.0 [facility] Comment on above: Performed By: #### C BC #### [facility] [address] [place] [address] Dr. Nehemiah Vargas Platelet mean volume (Bld) [Entitic vol] 9.3 fL Critically low 9.5-13.5 [facility] Comment on above: Performed By: #### C BC #### [facility] [address] [place] [address] Dr. Nehemiah Vargas PLT 171 103/ul Normal 150-450 [facility] Comment on above: Performed By: #### C BC #### [facility] [address] [place] [address] Dr. Nehemiah Vargas RBC 5.17 106/ul Normal 4.70-6.10 [facility] Comment on above: Performed By: #### C BC #### [facility] [address] [place] [address] Dr. Nehemiah Vargas WBC 10.9 103/ul Normal 4.0-11.0 [facility] Comment on above: Performed By: #### C BC #### [facility] [address] [place] [address] Dr. Nehemiah Vargas PROF 14(COMP METB)on 022 Albumin [Mass/Vol] 3.6 g/dL Normal 3.4-5.0 [facility] Comment on above: Performed By: #### C BC #### [facility] [address] [place] [address] Dr. Nehemiah Vargas Albumin/Globulin [Mass ratio] 1.2 {ratio} Normal [facility] Comment on above: Performed By: #### C BC #### [facility] [address] [place] [address] Dr. Nehemiah Vargas ALP [Catalytic activity/Vol] 105 U/L Normal 46-116 [facility] Comment on above: Performed By: #### C BC #### [facility] [address] [place] [address] Dr. Nehemiah Vargas ALT [Catalytic activity/Vol] 21 U/L Normal 16-63 [facility] Comment on above: Performed By: #### C BC #### [facility] [address] [place] [address] Dr. Nehemiah Vargas Anion gap [Moles/Vol] 11.4 mmol/L Normal [facility] Comment on above: Performed By: #### C BC #### [facility] [address] [place] [address] Dr. Nehemiah Vargas AST [Catalytic activity/Vol] 18 U/L Normal 15-37 [facility] Comment on above: Performed By: #### C BC #### [facility] [address] [place] [address] Dr. Nehemiah Vargas Bilirubin [Mass/Vol] 0.4 mg/dL Normal 0.2-1.0 [facility] Comment on above: Performed By: #### C BC #### [facility] [address] [place] [address] Dr. Nehemiah Vargas Calcium [Mass/Vol] 8.2 mg/dL Critically low 8.5-10.1 [facility] Comment on above: Performed By: #### C BC #### [facility] [address] [place] [address] Dr. Nehemiah Vargas Chloride [Moles/Vol] 96 mmol/L Critically low 98-107 [facility] Comment on above: Performed By: #### C BC #### [facility] [address] [place] [address] Dr. Nehemiah Vargas CO2 [Moles/Vol] 28.5 mmol/L Normal 21.0-32.0 [facility] Comment on above: Performed By: #### C BC #### [facility] [address] [place] [address] Dr. Nehemiah Vargas Creatinine [Mass/Vol] 0.88 mg/dL Normal 0.70-1.30 [facility] Comment on above: Performed By: #### C BC #### [facility] [address] [place] [address] Dr. Nehemiah Vargas EGFR-AF SWEDISH >60 Normal >=60 [facility] Comment on above: Performed By: #### C BC #### [facility] [address] [place] [address] Dr. Nehemiah Vargas EGFR-NON AF SWEDISH >60 Normal >=60 [facility] Comment on above: Performed By: #### C BC #### [facility] [address] [place] [address] Dr. Nehemiah Vargas Globulin (S) [Mass/Vol] 3.1 g/dL Normal [facility] Comment on above: Performed By: #### C BC #### [facility] [address] [place] [address] Dr. Nehemiah Vargas Glucose [Mass/Vol] 121 mg/dL Critically high 74-106 T [facility] Comment on above: Performed By: #### C BC #### [facility] [address] [address] [address] Nehemiah Vargas Potassium [Moles/Vol] 3.9 mmol/L Normal 3.5-5.1 [facility] Comment on above: Performed By: #### C BC #### [facility] [address] [place], [place] [address] Dr. Nehemiah Vargas Protein [Mass/Vol] 6.7 g/dL Normal 6.1-8.2 [facility] Comment on above: Performed By: #### C BC #### [facility] [address] [address] [address] Nehemiah Vargas Sodium [Moles/Vol] 132 mmol/L Critically low 136-145 Th [facility] Comment on above: Performed By: #### C BC #### [facility] [address] [address] [address] Nehemiah Vargas Urea nitrogen [Mass/Vol] 8.0 mg/dL Normal 7.0-18.0 [facility] Comment on above: Performed By: #### C BC #### [facility] [address] [address] [address] Nehemiah Vargas Urea nitrogen/Creatinin e [Mass ratio] 9.1 mg/mg Normal [facility] Comment on above: Performed By: #### C BC #### [facility] [address] [place], [place] [address] Dr. Nehemiah Vargas Vital Signs Date Time Vital Sign Value Performing Clinician Facility 12-13-2023 10:20-040 Body height 190.5 cm MD Shaikh Schuster Work Phone: [facility] 12-13-2023 10:20-040 Body mass index (BMI) [Ratio] 20.3 kg/m2 MD Shaikh Schuster Work Phone: [facility] 12-13-2023 10:20-040 Body weight 73.93 kg MD Shaikh Schuster Work Phone: [facility] 12-01-2023 14:25-0400 Diastolic blood pressure 99 mm[Hg] MD Shaikh Schuster Work Phone: [facility] 12-01-2023 14:25-0400 Heart rate 77 /min MD Shaikh Schuster Work Phone: [facility] 12-01-2023 14:25-0400 Systolic blood pressure 129 mm[Hg] MD Shaikh Schuster Work Phone: [facility] 12-01-2023 09:10-0400 Respiratory rate 18 /min MD Shaikh Schuster Work Phone: [facility] 12-01-2023 09:10-0400 SaO2% (BldA) [Mass fraction] 98 % MD Shaikh Schuster Work Phone: [facility] 06-20-2023 10:10-0400 Body height 190.5 cm MD Shaikh Schuster Work Phone: [facility] 06-20-2023 10:10-0400 Body weight 68.03 kg MD Shaikh Schuster Work Phone: [facility] 12-01-2021 11:20-0400 Body height 185.42 cm [facility] Other 12-01-2021 11:20-0400 Body mass index (BMI) [Ratio] 21.77 kg/m2 [facility] 12-01-2021 11:20-0400 Body weight 74.84 kg [facility] Other 10-09-2021 08:25-0500 Body height 190.5 cm MD Shaikh Schuster Work Phone: [facility] 10-09-2021 08:25-0500 Body weight 72.57 kg MD Shaikh Schuster Work Phone: [facility] 06-02-2021 12:20-0400 Body height 185.42 cm [facility] Other 06-02-2021 12:20-0400 Body mass index (BMI) [Ratio] 21.77 kg/m2 [facility] Other 06-02-2021 12:20-0400 Body weight 74.84 kg [facility] Other 06-02-2021 12:20-0400 Diastolic blood pressure 82 mm[Hg] [facility] 06-02-2021 12:20-0400 Systolic blood pressure 138 mm[Hg] [facility] Other Encounters Encounter Date Encounter Type Care Provider Facility Start: 03-21-2024 End: 03-21-2024 Patient encounter procedure MD Shaikh Schuster Work Phone: [facility] Work Phone: Start: 03-21-2024 End: 03-21-2024 ambulatory MD Shaikh Schuster Work Phone: [facility] Work Phone: Start: 02-27-2024 End: 02-27-2024 ambulatory VANDA WOLFE Not Available Start: 12-13-2023 End: 12-13-2023 ambulatory MD Shaikh Schuster Work Phone: [facility] Work Phone: Start: 12-13-2023 End: 12-13-2023 Patient encounter procedure MD Shaikh Schuster Work Phone: [facility] Work Phone: Start: 12-12-2023 End: 12-12-2023 Patient encounter procedure MD Shaikh Schuster Work Phone: [facility] [place] Work Phone: Start: 12-12-2023 End: 12-12-2023 ambulatory MD Shaikh Schuster Work Phone: [facility] Work Phone: Start: 12-07-2023 End: 12-07-2023 ambulatory OBEY LOWE Not Available Start: 12-01-2023 Registered Recurring MD Shaikh Schuster Work Phone: [facility] Work Phone: Start: 06-20-2023 End: 06-20-2023 Patient encounter procedure MD Shaikh Schuster Work Phone: [facility] [place] Work Phone: Start: 06-20-2023 End: 06-20-2023 ambulatory MD Shaikh Schuster Work Phone: [facility] Work Phone: Start: 11-29-2022 End: 11-29-2022 ambulatory MD Shaikh Schuster Work Phone: [facility] Work Phone: Start: 11-29-2022 End: 11-29-2022 Patient encounter procedure MD Shaikh Schuster Work Phone: [facility] [place] Work Phone: Start: 09-16-2022 End: 09-17-2022 ambulatory OBEY LOWE Facility:[facility] Start: 04-08-2022 End: 04-09-2022 ambulatory NTIHYA MUNOZ Facility:[facility] Start: 02-04-2022 End: 02-06-2022 ambulatory [...] procedure MD Shaikh Schuster Work Phone: [facility] [address] Start: 12-15-2021 End: 12-16-[address] IZZY VERGARA Facility:[facility] Start: 12-01-2021 End: 12-01-2021 amb[address] Other [facility] [employer] Other Start: 12-01-2021 Office outpatient visit 25 minutes Js May [facility] Start: 11-19-2021 End: 11-19-2021 Patient encounter procedure MD Shaikh Schuster Work Phone: [facility] [address] [place] Start: 10-15-2021 End: 10-16-[address] IZZY VERGARA Facility:[facility] Start: 10-09-2021 End: 10-09-2021 Patient encounter procedure MD Shaikh Schuster Work Phone: [facility] [address] [place] Start: 06-02-2021 Office outpatient visit 15 minutes Js May [facility] Start: 06-02-2021 Telephone encounter Js May [facility] Procedures Date Procedure Procedure Detail Performing [...] Author Start: 03-21-2024 MR Unspecified body region [facility] Start: 03-21-2024 MRI of head MR head/brain wo/w con [facility] Payers Date Payer Category Payer Medicaid [id number] 1980 Unknown [id number] 2.16.84 [id number] 1979 Unknown [id number] 2.16.84 0.1.391427.3.579.2.593 1979 Unknown [id number] .16.84 0.1.858477.3.579.2.593 1979 Unknown [id number] .16.84 0.1.523222.3.579.2.593 1979 Unknown [id number] 2.16.84 0.1.631191.3.579.2.593 1979 Unknown [id number] 2.16.84 0.1.539794.3.579.2.593 1979 Unknown [id number] 2.16.84 0.1.762558.3.579.2.593 1979 Unknown [id number] 2.16.84 0.1.553940.3.579.2.593 1979 Unknown [id number] 2.16.84 0.1.620256.3.579.2.593 1979 Unknown [id number] 2.16.84 0.1.671353.3.579.2.593 1979 Unknown [id number] 2.16.84 0.1.919870.3.579.2.1259 1979 Unknown [id number] 2.16.84 0.1.182460.3.579.2.1259 1959 Unknown [id number] Self-pay Self Pay [id number] Social History Date Type Detail Facility Start: 12-01-2020 Tobacco smoking status MNIS Ex-smoker (finding) [facility] Start: 1980 Sex Assigned At Male F [facility] Sex Assigned At Sex Assigned At Bir Walk-in Other Medical Equipment Procedure Code Equipment Code [...] FDA Start: 11-09-2017 Spinal fusion graft kit [id number] FDA Start: 12-01-2020 Bone-screw internal spinal fixation system, non-sterile [id number] FDA Start: 12-01-2020 Bone-screw internal spinal fixation system, non-sterile [id number] FDA Start: 12-01-2020 Polymeric spinal fusion cage, non-sterile [id number] FDA Start: 12-01-2020 Bone-screw internal spinal fixation system, non-sterile [id number] FDA Start: 12-01-2020 Evaluation note 12-01-2021 Note [...] the active MS that this patient has. Walk-in Other Evaluation note 06-02-2021 Note Date & [...] M51.36) May, Multiple sclerosis (ICD-10 - G35) Walk-in Other Evaluation note Note Date & Type Note Facility Evaluation note No assessment information [facility] Work Phone: Evaluation note Note Date & Type Note Facility Evaluation note No Information [employer] Other History general Narrative - Reported Note Date & Type Note Facility History general Narrative - Reported Type Medical History multiple sclerosis Medical History Patient was born with one kidney Medical History degenerative disc disease Medical History anxiety Medical History depression Surgical History lumbar laminectomy Surgical History Chest tube Surgical History nephrectomy Hospitalization History See Above [facility] Other History general Narrative - Reported Note [...] Lumbar fusion-Doctor May Hospitalization History See Above Walk-in Other Chief Complaint and Reason for Visit [...] Team Status: Inactive Member Role Status Susi Shcuster MD Primary Care Provider Active Obey Lopez [...] content) DATE CREATED AUTHOR 09/18/2022 [facility] DATE CREATED AUTHOR AUTHOR'S ORGANIZ ATION 02/28/2024 [facility] EPIC DATE CREATED AUTHOR AUTHOR'S ORGANIZ ATION 03/24/2024 [facility] FOR RECORDS PERTAINING TO [...] BE BASED ON THE PRIMARY CLINICAL RECORDS. [facility] [facility]. provides no warranty or guarantee of the accuracy or completeness of information in this document.
--- NOTE | 2024-04-19 18:33 | XR_ITS ---
The [address] [address] Patient Name: TAVIA CANALES MRN: [id number] date: 1980 Sex: M Assigned Patient Location: ER Current Patient Location: ED.MAIN Accession/Order Number: [id number] Exam Date: 04/19/2024 18:45 Report Date: 04/19/2024 19:55 At the request of: KRISTAN HENSLEY Procedure: XR shoulder LT min 2V IMAGES REVIEWED: XR shoulder LT min 2V COMPARISON: 04/09/2024. CLINICAL INDICATION: left shoulder pain FINDINGS/IMPRESSION: 1. Subacute healing mildly anteromedially displaced left humeral neck fracture again seen. 2. No evidence of new acute osseous abnormality of the left shoulder. Electronically authenticated by: KAM RONDON Date: 04/19/2024 19:55
--- NOTE | 2024-04-19 18:34 | ED.EXTPRO1 ---
HPI - Extremity Problem General Chief complaint: Extremity Problem, Nontraumatic Stated complaint: UPPER EXTREMITY PAIN Time Seen by Provider: 04/19/24 18:29 Source: patient Mode of arrival: walk-in Limitations: no limitations History of Present Illness HPI Narrative: Patient is a 43-year-old male who presents to the emergency department for pain in the left shoulder. Patient was seen in this emergency department several months ago and diagnosed with a proximal humerus fracture. He was managed nonoperatively as an outpatient in a sling, he states he was taken out of the sling by orthopedics 1 month ago. He states he was doing okay until last week when he developed an increase in pain in the left shoulder joint. He states he feels as though his shoulder does not lined up like it is supposed to. He was seen by orthopedics last weeks and states he had x-rays performed, and was told they were within normal parameters . He is not currently taking any medications for pain. He reports supination of the left forearm causes a significant increase in pain and occasionally the pain radiates from the left shoulder joint down the arm. He denies any new falls or injuries. No paresthesia Related Data Home Medications ?Medication ?Instructions ?Recorded ?Confirmed buspirone 10 mg tablet 10 mg PO BID 04/19/24 04/19/24 ergocalciferol (vitamin D2) 1,250 1,250 mcg PO QWEEK 04/19/24 04/19/24 mcg (50,000 unit) capsule gabapentin 800 mg tablet 800 mg PO TID 04/19/24 04/19/24 metoprolol succinate 50 mg 50 mg PO .QD 04/19/24 04/19/24 tablet,extended release 24 hr oxcarbazepine 300 mg tablet 300 mg PO BID 04/19/24 04/19/24 quetiapine 300 mg tablet 300 mg PO .QHS 04/19/24 04/19/24 Previous Rx's ?Medication ?Instructions ?Recorded methocarbamol 750 mg tablet 750 mg PO TID PRN pain #20 tabs 04/19/24 oxycodone-acetaminophen 5 mg-325 1 tab PO Q6H PRN pain 3 days #12 04/19/24 mg tablet (Percocet) tabs Allergies Allergy/AdvReac Type Severity Reaction Status Date / Time Penicillins AdvReac Mild Vomiting Verified 08/29/24 18:28 Review of Systems ROS Constitutional Denies: fever or chills Ears, nose, mouth, and throat Denies: throat pain or nasal congestion Cardiovascular Denies: chest pain Respiratory Denies: shortness of breath or cough Gastrointestinal Denies: nausea or vomiting Musculoskeletal Reports: extremity pain, joint pain and limited range of motion; Denies: back pain or neck pain Integumentary/Breast Denies: rash Hematologic/Lymphatic Denies: easy bruising or easy bleeding Exam Constitutional Vital Signs, click to edit/add: Last Vital Signs Temp 98.2 F 04/19/24 18:25 Pulse 61 04/19/24 18:25 Resp 16 04/19/24 18:25 BP 116/91 04/19/24 18:25 Pulse Ox 97 04/19/24 18:25 O2 Del Method Room Air 04/19/24 18:25 Course Vital Signs Vital signs: Vital Signs Temperature 98.2 F 04/19/24 18:25 Pulse Rate 61 04/19/24 18:25 Respiratory Rate 16 04/19/24 18:25 Blood Pressure 116/91 04/19/24 18:25 Pulse Oximetry 97 04/19/24 18:25 Oxygen Delivery Method Room Air 04/19/24 18:25 Temperature 98.2 F 04/19/24 18:25 Pulse Rate 61 04/19/24 18:25 Respiratory Rate 16 04/19/24 18:25 Blood Pressure 116/91 04/19/24 18:25 Pulse Oximetry 97 04/19/24 18:25 Oxygen Delivery Method Room Air 04/19/24 18:25 MDM - Extremity (Nontraumatic) MDM Narrative Medical decision making narrative: X-ray show subacute healing mildly displaced proximal humerus fracture. Patient treated for pain in the ER and is discharged home with a short course of analgesics and muscle relaxants to follow-up with orthopedics. He is neurovascularly intact at discharge. No acute process noted on x-rays. SUPERVISED APC VISIT, PHYSICIAN ATTESTATION: Based on the medical record the care appears appropriate. ? Medical Records Attestation: I reviewed the patient's medical records. Imaging Data xr shoulder: Attestation: I have reviewed the pertinent imaging results. Discharge Plan Discharge Stand Alone Forms: Portal Instructions Chief Complaint: Extremity Problem, Nontraumatic Clinical Impression: Acute pain of left shoulder Patient Disposition: Home, Self-Care Time of Disposition Decision: 20:02 Condition: Good Prescriptions / Home Meds: New oxycodone-acetaminophen [Percocet] 5-325 mg tablet 1 tab PO Q6H PRN (Reason: pain) 3 Days Qty: 12 0RF Rx Instructions: DX: M52.512 methocarbamol 750 mg tablet 750 mg PO TID PRN (Reason: pain) Qty: 20 0RF No Action quetiapine 300 mg tablet 300 mg PO .QHS oxcarbazepine 300 mg tablet 300 mg PO BID gabapentin 800 mg tablet 800 mg PO TID buspirone 10 mg tablet 10 mg PO BID ergocalciferol (vitamin D2) 1,250 mcg (50,000 unit) capsule 1,250 mcg PO QWEEK metoprolol succinate 50 mg tablet extended release 24 hr 50 mg PO .QD Print Language: [place] Citizen Instructions: Shoulder Pain (ED) Referrals: Physician,Non-Staff, [Physician] - 1 week Norman Gutierrez MD [Physician] - 1 week
[2024-04-19] MEDS: OXYCODONE HCL/ACETAMINOPHEN 5MG/325MG 1 TAB PO (19:58)
[2024-04-19] MEDS: METHOCARBAMOL 500 MG TABLET PO (19:58)
== END 2024-04-19 20:28 | disposition home or self-care (01) ==
PROVIDERS: Emergency Provider Emergency Medicine; PCP Family Medicine
DX: M25.512 Pain in left shoulder (principal); S42.202D Unspecified fracture of upper end of left humerus, subsequent encounter for fracture with routine healing; X58.XXXD Exposure to other specified factors, subsequent encounter
CPT/HCPCS: 73030; 99283

== ENCOUNTER 2024-04-23 19:23 | Emergency (ER) | payer OTHER, SELFPAY ==
[2024-04-23 19:30] VITALS: BP 142/97; PULSE 83; TEMP 36.7; O2SAT 98; BMI 20.6
--- OUTSIDE RECORDS SUMMARY | 2024-04-23 19:30 | XMS_ITS | CCD ---
Author Organization [facility] Care Team Providers Care Thoracic Surgeon Name Role Phone MD Tracey Schuster Primary Care Provider [phone] WALDO Lopez Attending Provider [phone] MD Js May Attending Provider [phone] WALDO Camarena Attending Provider [phone] Js May Unavailable OBEY LOPEZ Attending Unavailable [...] Unavailable Js May Attending Unavailable Jagdish Schusterikh [facility] Unavailable Vanda Wolfe Admitting Unavailable Vanda Wolfe Attending Unavailable Jagdish Schusterikh [facility] Unavailable Allergies Allergy Classification Reported Allergen(s) Allergy Type Date of Onset Reaction(s) Facility (6 sources) NSAIDs Propensity to adverse reactions 04-16-20 20 Contraindicated R/T 1 kidney [facility] (7 sources) Penicillins; Translations: [Penicillins] Propensity to adverse reactions 04-06-20 15 Vomiting, Vomiting, N/V [facility] (6 sources) penicillAMINE Drug Allergy 12-01-19 23 Unknown, Unknown Reaction [facility] (6 sources) Anti-Inflammator y Enzyme Drug allergy 12-01-19 23 Unknown, Unknown Reaction [facility] (1 source) Penicillin Drug Allergy N/V [facility] Other Medications Current Medications Medication Drug Class(es) [...] 01-26-2022 Episodic Other aftercare (1 source) Other care home (current) drug therapy; Translations: [[employer] CURRENT DRUG THERAPY] Onset: 02-01-2022 Episodic Other [...] head/brain wo/w conon MR head/brain wo/w con [facility] [place] [address] MRI Report Signed Patient: Alexis Negrete II MR#: [id number] : 1980 Acct:[id number] Age/Sex: 43 / M ADM Date: 03/21/24 Loc: MR Room: Type: [facility] Attending Dr: Vanda Wolfe PA-C Copies [...] Wyatt Ramos M.D.03/22/2024 8:31 AM Dictation Location: [place] [address] Transcribed By: [facility] 03/22/24830 Dictated By: Wyatt Ramos DO 03/21/241923 Signed By: 03/22/24830 Normal [facility] XR lumbar spine AP/LAT/FLX/E XTon 12-12-2023 XR lumbar spine AP/LAT/FLX/EXT [facility] [place] [address] [place] [address] XRay Report Signed Patient: Alexis Negrete II MR#: [id number] : 1980 Acct:[id number] Age/Sex: 43 / M ADM Date: 12/12/23 Loc: XD Room: Type: [facility] Attending Dr: Js May MD Copies [...] Heidi Richardson M.D.12/12/2023 8:25 PM Dictation Location: [place] [address] Transcribed By: [facility] 12/12/232024 Dictated By: Heidi Richardson II, MD 12/12/232023 Signed By: 12/12/232024 Normal [facility] MR cervical spine wo/w conon 06-20-2023 MR cervical spine wo/w con [facility] [place] [address] [place] [address] MRI Report Signed Patient: Alexis Negrete II MR#: [id number] : 1980 Acct:[id number] Age/Sex: 42 / M ADM Date: 06/20/23 Loc: Room: Type: [facility] Attending Dr: Obey Lopez PA-C Copies [...] Heidi Richardson M.D.06/20/2023 1:44 PM Dictation Location: [place] [address] Transcribed By: [facility] 06/20/23 1344 Dictated By: Heidi Richardson II, MD 06/20/23 1338 Signed By: 06/20/23 1344 Normal [facility] MR thoracic spine wo/w tonya 06-20-2023 MR thoracic spine wo/w con [facility] [place] [address] [place] [address] MRI Report Signed Patient: Alexis Negrete II MR#: [id number] : 1980 Acct:[id number] Age/Sex: 42 / M ADM Date: 06/20/23 Loc: MR Room: Type: [facility] Attending Dr: Obey Lopez PA-C Copies [...] Heidi Richardson M.D.06/20/2023 1:37 PM Dictation Location: [place] [address] Transcribed By: CELINA 06/20/231336 Dictated By: Heidi Richardson II, MD 06/20/231330 Signed By: 06/20/231336 Normal [facility] CBC AUTO DIFFon 09-16-2022 BASO # 0.0 103/ul Normal 0.0-0.1 [facility] Comment on above: Performed By: #### C BC #### [facility] [address] [place] [address] [address] Nehemiah Vargas Basophils/100 WBC (Bld) 0.5 % Normal 0.2-2.0 [facility] Comment on above: Performed By: #### C BC #### [facility] [address] [place] [address] [address] Nehemiah Vargas EO # 0.0 103/ul Normal 0.0-0.7 [facility] Comment on above: Performed By: #### C BC #### [facility] [address] [place] [address] [address] Nehemiah Vargas Eosinophils/100 WBC (Bld) 0.5 % Critically low 0.9-7.0 [facility] Comment on above: Performed By: #### C BC #### [facility] [address] [place] [address] [address] Nehemiah Vargas Erythrocyte distribution width (RBC) [Ratio] 13.2 % Normal 11.0-15.0 [facility] Comment on above: Performed By: #### C BC #### [facility] [address] [place] [address] [address] Nehemiah Vargas Hematocrit (Bld) [Volume fraction] 50.1 % Normal 42.0-54.0 [facility] Comment on above: Performed By: #### C BC #### [facility] [address] [place] [address] [address] Nehemiah Vargas Hemoglobin (Bld) [Mass/Vol] 15.2 g/dL Normal 14.0-18.0 [facility] Comment on above: Performed By: #### C BC #### [facility] [address] [place] [address] Dr. Nehemiah Vargas IG # 0.02 10e3/ul Normal 0.00-0.03 [facility] Comment on above: Performed By: #### C BC #### [facility] [address] [place] [address] Dr. Nehemiah Vargas IG % 0.3 % Normal 0.0-0.5 [facility] Comment on above: Performed By: #### C BC #### [facility] [address] [place] [address] Dr. Nehemiah Vargas LYMPH # 1.8 103/ul Normal 1.2-3.8 [facility] Comment on above: Performed By: #### C BC #### [facility] [address] [place] [address] Dr. Nehemiah Vargas Lymphocytes/100 WBC (Bld) 22.9 % Normal 20.5-60.0 [facility] Comment on above: Performed By: #### C BC #### [facility] [address] [place] [address] Dr. Nehemiah Vargas MANUAL DIFF REQ NO Normal [facility] Comment on above: Performed By: #### C BC #### [facility] [address] [place] [address] Dr. Nehemiah Vargas MCH (RBC) [Entitic mass] 29.9 pg Normal 25.9-34.0 [facility] Comment on above: Performed By: #### C BC #### [facility] [address] [place] [address] Dr. Nehemiah Vargas MCHC (RBC) [Mass/Vol] 30.3 g/dL Normal 29.9-35.2 [facility] Comment on above: Performed By: #### C BC #### [facility] [address] [place] [address] Dr. Nehemiah Vargas MCV (RBC) [Entitic vol] 98.4 fL Critically high 80.0-94.0 [facility] Comment on above: Performed By: #### C BC #### [facility] [address] [place] [address] Dr. Nehemiah Vargas MONO # 0.5 103/ul Normal 0.3-0.8 [facility] Comment on above: Performed By: #### C BC #### [facility] [address] [place] [address] [address] Nehemaih Vargas Monocytes/100 WBC (Bld) 6.7 % Normal 1.7-12.0 [facility] Comment on above: Performed By: #### C BC #### [facility] [address] [place] [address] Dr. Nehemiah Vargas NEUT # 5.5 103/ul Normal 1.4-6.5 [facility] Comment on above: Performed By: #### C BC #### [facility] [address] [place] [address] Dr. Nehemiah Vargas Neutrophils/100 WBC (Bld) 69.1 % Normal 43.0-75.0 [facility] Comment on above: Performed By: #### C BC #### [facility] [address] [place] [address] Dr. Nehemiah Vargas Platelet mean volume (Bld) [Entitic vol] 10.1 fL Normal 9.5-13.5 [facility] Comment on above: Performed By: #### C BC #### [facility] [address] [place] [address] Dr. Nehemiah Vargas PLT 159 103/ul Normal 150-[address] [facility] Comment on above: Performed By: #### C BC #### [facility] [address] [place] [address] Dr. Nehemiah Vargas RBC 5.09 106/ul Normal 4.70-6.[address] [facility] Comment on above: Performed By: #### C BC #### [facility] [address] [place] [address] Dr. Nehemiah Vargas WBC 7.9 103/ul Normal 4.0-11.[address] [facility] Comment on above: Performed By: #### C BC #### [facility] [address] [place] [address] Dr. Nehemiah Vargas PROF 14(COMP METB)on 023 Albumin [Mass/Vol] 3.9 g/dL Normal 3.4-5.0 [facility] Comment on above: Performed By: #### C MP #### [facility] [address] [place] [address] [address] Nehemiah Vargas Albumin/Globulin [Mass ratio] 1.2 {ratio} Normal [facility] Comment on above: Performed By: #### C MP #### [facility] [address] [place] [address] [address] Nehemiah Vargas ALP [Catalytic activity/Vol] 118 U/L Critically high 46-116 [facility] Comment on above: Performed By: #### C MP #### [facility] [address] [place] [address] Dr. Nehemiah Vargas ALT [Catalytic activity/Vol] 25 U/L Normal 16-63 [facility] Comment on above: Performed By: #### C MP #### [facility] [address] [place] [address] [address] Nehemiah Vargas Anion gap [Moles/Vol] 11.7 mmol/L Normal [facility] Comment on above: Performed By: #### C MP #### [facility] [address] [place] [address] Dr. Nehemiah Vargas AST [Catalytic activity/Vol] 24 U/L Normal 15-37 [facility] Comment on above: Performed By: #### C MP #### [facility] [address] [place] [address] [address] Nehemiah Vargas Bilirubin [Mass/Vol] 0.5 mg/dL Normal 0.2-1.0 [facility] Comment on above: Performed By: #### C MP #### [facility] [address] [place] [address] [address] Nehemiah Vargas Calcium [Mass/Vol] 8.8 mg/dL Normal 8.5-10.1 [facility] Comment on above: Performed By: #### C MP #### [facility] [address] [place] [address] Dr. Nehemiah Vargas Chloride [Moles/Vol] 101 mmol/L Normal 98-[address] [facility] Comment on above: Performed By: #### C MP #### [facility] [address] [place] [address] [address] Nehemiah Vargas CO2 [Moles/Vol] 30.4 mmol/L Normal 21.0-32.0 [facility] Comment on above: Performed By: #### C MP #### [facility] [address] [place] [address] [address] Nehemiah Vargas Creatinine [Mass/Vol] 0.86 mg/dL Normal 0.70-1.[address] [facility] Comment on above: Performed By: #### C MP #### [facility] [address] [place] [address] Dr. Nehemiah Vargas EGFR-AF TUVALUAN >60 Normal >=60 [facility] Comment on above: Performed By: #### C MP #### [facility] [address] [place] [address] [address] Nehemiah Vargas EGFR-NON AF TUVALUAN >60 Normal >=60 [facility] Comment on above: Performed By: #### C MP #### [facility] [address] [place] [address] [address] Nehemiah Vargas Globulin (S) [Mass/Vol] 3.2 g/dL Normal [facility] Comment on above: Performed By: #### C MP #### [facility] [address] [place] [address] [address] Nehemiah Vargas Glucose [Mass/Vol] 116 mg/dL Critically high 74-106 [facility] Comment on above: Performed By: #### C MP #### [facility] [address] [address] [address] Nehemaih Vargas Potassium [Moles/Vol] 4.1 mmol/L Normal 3.5-5.1 [facility] Comment on above: Performed By: #### C MP #### [facility] [address] [place] [address] Dr. Nehemiah Vargas Protein [Mass/Vol] 7.1 g/dL Normal 6.4-8.2 [facility] Comment on above: Performed By: #### C MP #### [facility] [address] [place] [address] [address] Nehemiah Vargas Sodium [Moles/Vol] 139 mmol/L Normal 136-145 [facility] Comment on above: Performed By: #### C MP #### [facility] [address] [place] [address] [address] Nehemiah Vargas Urea nitrogen [Mass/Vol] 10.0 mg/dL Normal 7.0-18.0 [facility] Comment on above: Performed By: #### C MP #### [facility] [address] [place] [address] [address] Nehemiah Vargas Urea nitrogen/Creatinin e [Mass ratio] 11.6 mg/mg Normal [facility] Comment on above: Performed By: #### C MP #### [facility] [address] [place] [address] [address] Nehemiah Vargas VIT D 25-OH LABCORPon 2021 Vitamin D, 25-Hydroxy 42.1 ng/mL Normal 30.0-100.0 [facility] Comment on above: Result Comment: Bria min D deficiency has been defined by the [employer] and an Endocrine Society practice guideline as a level of serum 25-OH vitamin D less than 20 ng/mL (1,2). The Endocrine Society went on to further define vitamin D insufficiency as a level between 21 and 29 ng/mL (2). 1. IOM ([place]). 2010. Dietary reference intakes for calcium and D. [place]: The National Academies Press. 2. Deana MF, Eddie NC, Migel AMADOR, et al. Evaluation, treatment, and prevention of vitamin D deficiency: an Endocrine Society clinical practice guideline. JCEM. 2010; 96(7):1911-30. Performed By: #### V ITADLC #### [facility] [address] [address] [address] Nehemiah Vargas FREE T3on 04-08-2022 FREE T3 1.59 pg/mlL Critically low 2.18-3.98 [facility] Comment on above: Performed By: #### C BC #### [facility] [address] [place] [address] Dr. Nehemiah Vargas FREE T4on 04-08-2022 Free T4 [Mass/Vol] 0.78 ng/dL Normal 0.76-1.46 [facility] Comment on above: Performed By: #### C BC #### [facility] [address] [place] [address] Dr. Nehemiah Vargas TSHon 04-08-2022 TSH 0.219 uIU/mL Critically low 0.358-3.740 [facility] Comment on above: Performed By: #### C BC #### [facility] [address] [place] [address] Dr. Nehemiah Vargas PROLACTINon 01-23-2022 Prolactin 107.0 ng/mL Critically high 4.0-15.2 [facility] Comment on above: Performed By: #### C BC #### [facility] [address] [place] [address] Dr. Nehemiah Vargas CARDIAC HEIDI ADMITon 022 CK [Catalytic activity/Vol] 108 U/L Normal 39-308 [facility] Comment on above: Performed By: #### C BC #### [facility] [address] [place] [address] Dr. Nehemiah Vargas CK.MB [Mass/Vol] 3.01 ng/mL Normal <=3.60 [facility] Comment on above: Performed By: #### C BC #### [facility] [address] [place] [address] Dr. Nehemiah Vargas HSTROP 4.0 pg/mL Normal 4.0-76.1 [facility] Comment on above: Result Comment: CUT- OFF POINTS HAVE BEEN ESTABLISHED BASED ON THE FOURTH UNIVERSAL DEFINITIONS OF MYOCARDIAL INFARCTION. THE UPPER REFERENCE LIMIT (URL) OF TROPONIN, DEFINED THE 99TH PERCENTILE OF cTnI DISTRIBUTION IN A REFERENCE POPULATION, HAS BEEN CONFIRMED THE DECISION THRESHOLD FOR SC DIAGNOSIS. Performed By: #### C BC #### [facility] [address] [place] [address] Dr. Nehemiah Vargas RICARDO 33 ng/mL Normal 16-96 [facility] Comment on above: Performed By: #### C BC #### [facility] [address] [address] [address] Nehemiah Vargas CBC AUTO DIFFon 01-22-2022 BASO # 0.0 103/ul Normal 0.0-0.1 [facility] Comment on above: Performed By: #### C BC #### [facility] [address] [address] [address] Nehemiah Vargas Basophils/100 WBC (Bld) 0.5 % Normal 0.2-2.0 [facility] Comment on above: Performed By: #### C BC #### [facility] [address] [place] [address] Dr. Nehemiah Vargas EO # 0.0 103/ul Normal 0.0-0.7 [facility] Comment on above: Performed By: #### C BC #### [facility] [address] [place] [address] Dr. Nehemiah Vargas Eosinophils/100 WBC (Bld) 0.3 % Critically low 0.9-7.0 [facility] Comment on above: Performed By: #### C BC #### [facility] [address] [place] [address] Dr. Nehemiah Vargas Erythrocyte distribution width (RBC) [Ratio] 12.4 % Normal 11.0-15.0 [facility] Comment on above: Performed By: #### C BC #### [facility] [address] [place] [address] Dr. Nehemiah Vargas Hematocrit (Bld) [Volume fraction] 43.1 % Normal 42.0-54.0 [facility] Comment on above: Performed By: #### C BC #### [facility] [address] [place] [address] Dr. Nehemiah Vargas Hemoglobin (Bld) [Mass/Vol] 14.6 g/dL Normal 14.0-18.0 [facility] Comment on above: Performed By: #### C BC #### [facility] [address] [place] [address] Dr. Nehemiah Vargas IG # 0.02 10e3/ul Normal 0.00-0.03 [facility] Comment on above: Performed By: #### C BC #### [facility] [address] [place] [address] Dr. Nehemiah Vargas IG % 0.3 % Normal 0.0-0.5 [facility] Comment on above: Performed By: #### C BC #### [facility] [address] [place] [address] Dr. Nehemiah Vargas LYMPH # 0.9 103/ul Critically low 1.2-3.8 [facility] Comment on above: Performed By: #### C BC #### [facility] [address] [place] [address] Dr. Nehemiah Vargas Lymphocytes/100 WBC (Bld) 13.1 % Critically low 20.5-60.0 [facility] Comment on above: Performed By: #### C BC #### [facility] [address] [place] [address] Dr. Nehemiah Vargas MANUAL DIFF REQ NO Normal [facility] Comment on above: Performed By: #### C BC #### [facility] [address] [place] [address] Dr. Nehemiah Vargas MCH (RBC) [Entitic mass] 30.0 pg Normal 25.9-34.0 [facility] Comment on above: Performed By: #### C BC #### [facility] [address] [place] [address] Dr. Nehemiah Vargas MCHC (RBC) [Mass/Vol] 33.9 g/dL Normal 29.9-35.2 [facility] Comment on above: Performed By: #### C BC #### [facility] [address] [place] [address] Dr. Nehemiah Vargas MCV (RBC) [Entitic vol] 88.7 fL Normal 80.0-94.0 [facility] Comment on above: Performed By: #### C BC #### [facility] [address] [place] [address] Dr. Nehemiah Vargas MONO # 0.4 103/ul Normal 0.3-0.8 [facility] Comment on above: Performed By: #### C BC #### [facility] [address] [address] [address] Nehemiah Vargas Monocytes/100 WBC (Bld) 5.3 % Normal 1.7-12.0 [facility] Comment on above: Performed By: #### C BC #### [facility] [address] [address] [address] Nehemiah Vargas NEUT # 5.4 103/ul Normal 1.4-6.5 [facility] Comment on above: Performed By: #### C BC #### [facility] [address] [address] [address] Nehemiah Vargas Neutrophils/100 WBC (Bld) 80.5 % Critically high 43.0-75.0 [facility] Comment on above: Performed By: #### C BC #### [facility] [address] [place] [address] Dr. Nehemiah Vargas Platelet mean volume (Bld) [Entitic vol] 9.1 fL Critically low 9.5-13.5 [facility] Comment on above: Performed By: #### C BC #### [facility] [address] [address] [address] Nehemiah Vargas PLT 198 103/ul Normal 150-450 [facility] Comment on above: Performed By: #### C BC #### [facility] [address] [place] [address] Dr. Nehemiah Vargas RBC 4.86 106/ul Normal 4.70-6.[address] [facility] Comment on above: Performed By: #### C BC #### [facility] [address] [place] [address] Dr. Nehemiah Vargas WBC 6.7 103/ul Normal 4.0-11.[address] [facility] Comment on above: Performed By: #### C BC #### [facility] [address] [place] [address] HEAD WO CONon [...] by: IZZY CHAMPAGNE Date: 2022-01-22 12:00 Normal [facility] LACTATE/LACTIC ACIDon 2021 Lactate [Moles/Vol] 1.2 mmol/L Normal 0.4-1.9 [facility] Comment on above: Performed By: #### L ACT #### [facility] [address] [place] [address] Dr. Nehemiah Vargas LIPASEon 01-22-2022 Lipase [Catalytic activity/Vol] 95.0 U/L Normal 73.0-393.0 [facility] Comment on above: Performed By: #### C BC #### [facility] [address] [place] [address] Dr. Nehemiah Vargas PH VENOUS BLOODon 01-22-2022 PCO2 VENOUS 51.9 mmHg Normal 40.0-52.0 [facility] Comment on above: Performed By: #### C BC #### [facility] [address] [place] [address] Dr. Nehemiah Vargas pH VENOUS 7.301 Critically low 7.330-7.430 [facility] Comment on above: Performed By: #### C BC #### [facility] [address] [place] [address] Dr. Nehemiah Vargas PROF 14(COMP METB)on 022 Albumin [Mass/Vol] 3.7 g/dL Normal 3.4-5.0 [facility] Comment on above: Performed By: #### C BC #### [facility] [address] [place] [address] Dr. Nehemiah Vargas Albumin/Globulin [Mass ratio] 1.2 {ratio} Normal [facility] Comment on above: Performed By: #### C BC #### [facility] [address] [place] [address] Dr. Nehemiah Vargas ALP [Catalytic activity/Vol] 97 U/L Normal 46-116 [facility] Comment on above: Performed By: #### C BC #### [facility] [address] [place] [address] Dr. Nehemiah Vargas ALT [Catalytic activity/Vol] 26 U/L Normal 16-63 [facility] [facility] Comment on above: Performed By: #### C BC #### [facility] [address] [place] [address] Dr. Nehemiah Vargas Anion gap [Moles/Vol] 11.1 mmol/L Normal [facility] Comment on above: Performed By: #### C BC #### [facility] [address] [place] [address] Dr. Nehemiah Vargas AST [Catalytic activity/Vol] 20 U/L Normal 15-37 [facility] Comment on above: Performed By: #### C BC #### [facility] [address] [place] [address] Dr. Nehemiah Vargas Bilirubin [Mass/Vol] 0.4 mg/dL Normal 0.2-1.0 [facility] Comment on above: Performed By: #### C BC #### [facility] [address] [place] [address] Dr. Nehemiah Vargas Calcium [Mass/Vol] 8.4 mg/dL Critically low 8.5-10.1 Th [facility] Comment on above: Performed By: #### C BC #### [facility] [address] [place] [address] Dr. Nehemiah Vargas Chloride [Moles/Vol] 96 mmol/L Critically low 98-107 [facility] Comment on above: Performed By: #### C BC #### [facility] [address] [place] [address] Dr. Nehemiah Vargas CO2 [Moles/Vol] 28.1 mmol/L Normal 21.0-32.0 [facility] Comment on above: Performed By: #### C BC #### [facility] [address] [place] [address] Dr. Nehemiah Vargas Creatinine [Mass/Vol] 0.85 mg/dL Normal 0.70-1.30 [facility] Comment on above: Performed By: #### C BC #### [facility] [address] [place] [address] Dr. Nehemiah Vargas EGFR-AF TUVALUAN >60 Normal >=60 [facility] Comment on above: Performed By: #### C BC #### [facility] [address] [place] [address] Dr. Nehemiah Vargas EGFR-NON AF TUVALUAN >60 Normal >=60 [facility] Comment on above: Performed By: #### C BC #### [facility] [address] [place] [address] Dr. Nehemiah Vargas Globulin (S) [Mass/Vol] 3.1 g/dL Normal [facility] Comment on above: Performed By: #### C BC #### [facility] [address] [place] [address] Dr. Nehemiah Vargas Glucose [Mass/Vol] 138 mg/dL Critically high 74-106 T [facility] Comment on above: Performed By: #### C BC #### [facility] [address] [place] [address] Dr. Nehemiah Vargas Potassium [Moles/Vol] 4.2 mmol/L Normal 3.5-5.1 [facility] Comment on above: Performed By: #### C BC #### [facility] [address] [place] [address] Dr. Nehemiah Vargas Protein [Mass/Vol] 6.8 g/dL Normal 6.4-8.2 [facility] Comment on above: Performed By: #### C BC #### [facility] [address] [place] [address] Dr. Nehemiah Vargas Sodium [Moles/Vol] 131 mmol/L Critically low 136-[address] [facility] Comment on above: Performed By: #### C BC #### [facility] [address] [address] [address] Nehemiah Vargas Urea nitrogen [Mass/Vol] 7.0 mg/dL Normal 7.0-18.0 [facility] Comment on above: Performed By: #### C BC #### [facility] [address] [address] [address] Nehemiah Vargas Urea nitrogen/Creatinin e [Mass ratio] 8.2 mg/mg Normal [facility] Comment on above: Performed By: #### C BC #### [facility] [address] [place] [address] Dr. Nehemiah Vargas TSHon 01-22-2022 TSH 1.003 uIU/mL Normal 0.358-3.740 [facility] Comment on above: Performed By: #### C BC #### [facility] [address] [place] [address] Dr. Nehemiah Vargas TSH RANGE SEE BELOW Normal [facility] Comment on above: Result Comment: <0.3 4 UIU/ml HYPERTHYROID 0.34-5.60 UIU/ml EUTHYROID >5.60 UIU/ml HYPOTHYROID Performed By: #### C BC #### [facility] [address] [place] [address] Dr. Nehemiah Vargas XR CHEST 1 Von [...] IZZY CHAMPAGNE Date: 2022-01-22 12:[address] [facility] CBC AUTO DIFFon 01-19-2022 BASO # 0.0 103/ul Normal 0.0-0.1 [facility] Comment on above: Performed By: #### C BC #### [facility] [address] [address] [address] Nehemiah Vargas Basophils/100 WBC (Bld) 0.4 % Normal 0.2-2.0 [facility] Comment on above: Performed By: #### C BC #### [facility] [address] [address] [address] Nehemiah Vargas EO # 0.1 103/ul Normal 0.0-0.[address] [facility] Comment on above: Performed By: #### C BC #### [facility] [address] [address] [address] Nehemiah Vargas Eosinophils/100 WBC (Bld) 1.3 % Normal 0.9-7.0 [facility] Comment on above: Performed By: #### C BC #### [facility] [address] [place] [address] Dr. Nehemiah Vargas Erythrocyte distribution width (RBC) [Ratio] 12.9 % Normal 11.0-15.0 [facility] Comment on above: Performed By: #### C BC #### [facility] [address] [place] [address] Dr. Nehemiah Vargas Hematocrit (Bld) [Volume fraction] 42.8 % Normal 42.0-54.0 [facility] Comment on above: Performed By: #### C BC #### [facility] [address] [place] [address] Dr. Nehemiah Vargas Hemoglobin (Bld) [Mass/Vol] 13.9 g/dL Critically low 14.0-18.0 [facility] Comment on above: Performed By: #### C BC #### [facility] [address] [place] [address] Dr. Nehemiah Vargas IG # 0.02 10e3/ul Normal 0.00-0.03 [facility] Comment on above: Performed By: #### C BC #### [facility] [address] [address] [address] Nehemiah Vargas IG % 0.3 % Normal 0.0-0.[address] [facility] Comment on above: Performed By: #### C BC #### [facility] [address] [place] [address] Dr. Nehemiah Vargas LYMPH # 1.8 103/ul Normal 1.2-3.8 [facility] Comment on above: Performed By: #### C BC #### [facility] [address] [place] [address] Dr. Nehemiah Vargas Lymphocytes/100 WBC (Bld) 26.5 % Normal 20.5-60.0 [facility] Comment on above: Performed By: #### C BC #### [facility] [address] [place] [address] Dr. Nehemiah Vargas MANUAL DIFF REQ NO Normal [facility] Comment on above: Performed By: #### C BC #### [facility] [address] [place] [address] Dr. Nehemiah Vargas MCH (RBC) [Entitic mass] 29.6 pg Normal 25.9-34.0 [facility] Comment on above: Performed By: #### C BC #### [facility] [address] [place] [address] Dr. Nehemiah Vargas MCHC (RBC) [Mass/Vol] 32.5 g/dL Normal 29.9-35.2 [facility] Comment on above: Performed By: #### C BC #### [facility] [address] [place] [address] Dr. Nehemiah Vargas MCV (RBC) [Entitic vol] 91.1 fL Normal 80.0-94.0 [facility] Comment on above: Performed By: #### C BC #### [facility] [address] [place] [address] Dr. Nehemiah Vargas MONO # 0.5 103/ul Normal 0.3-0.[address] [facility] Comment on above: Performed By: #### C BC #### [facility] [address] [place] [address] Dr. Nehemiah Vragas Monocytes/100 WBC (Bld) 6.9 % Normal 1.7-12.[address] [facility] Comment on above: Performed By: #### C BC #### [facility] [address] [place] [address] Dr. Nehemiah Vargas NEUT # 4.4 103/ul Normal 1.4-6.5 [facility] Comment on above: Performed By: #### C BC #### [facility] [address] [place] [address] Dr. Nehemiah Vargas Neutrophils/100 WBC (Bld) 64.6 % Normal 43.0-75.0 [facility] Comment on above: Performed By: #### C BC #### [facility] [address] [place] [address] Dr. Nehemiah Vargas Platelet mean volume (Bld) [Entitic vol] 10.3 fL Normal 9.5-13.5 [facility] Comment on above: Performed By: #### C BC #### [facility] [address] [place] [address] Dr. Nehemiah Vargas PLT 193 103/ul Normal 150-450 [facility] Comment on above: Performed By: #### C BC #### [facility] [address] [place] [address] Dr. Nehemiah Vargas RBC 4.70 106/ul Normal 4.70-6.10 [facility] Comment on above: Performed By: #### C BC #### [facility] [address] [place] [address] Dr. Nehemiah Vargas WBC 6.8 103/ul Normal 4.0-11.0 [facility] Comment on above: Performed By: #### C BC #### [facility] [address] [place] [address] Dr. Nehemiah Vargas PROF CHEM 8 (BAS METB)on Anion gap [Moles/Vol] 8.7 mmol/L Normal [facility] Comment on above: Performed By: #### C BC #### [facility] [address] [place] [address] Dr. Nehemiah Vargas Calcium [Mass/Vol] 8.6 mg/dL Normal 8.5-10.1 [facility] Comment on above: Performed By: #### C BC #### [facility] [address] [address] [address] Nehemiah Vargas Chloride [Moles/Vol] 100 mmol/L Normal 98-107 [facility] Comment on above: Performed By: #### C BC #### [facility] [address] [place] [address] Dr. Nehemiah Vargas CO2 [Moles/Vol] 29.8 mmol/L Normal 21.0-32.0 [facility] Comment on above: Performed By: #### C BC #### [facility] [address] [place] [address] Dr. Nehemiah Vargas Creatinine [Mass/Vol] 0.88 mg/dL Normal 0.70-1.30 [facility] Comment on above: Performed By: #### C BC #### [facility] [address] [place] [address] Dr. Nehemiah Vargas EGFR-AF TUVALUAN >60 Normal >=60 [facility] Comment on above: Performed By: #### C BC #### [facility] [address] [place] [address] Dr. Nehemiah Vargas EGFR-NON AF TUVALUAN >60 Normal >=60 [facility] Comment on above: Performed By: #### C BC #### [facility] [address] [place] [address] Dr. Nehemiah Vargas Glucose [Mass/Vol] 107 mg/dL Critically high 74-106 [facility] Comment on above: Performed By: #### C BC #### [facility] [address] [place] [address] Dr. Nehemiah Vargas Potassium [Moles/Vol] 4.5 mmol/L Normal 3.5-5.1 [facility] Comment on above: Performed By: #### C BC #### [facility] [address] [place] [address] Dr. Nehemiah Vargas Sodium [Moles/Vol] 134 mmol/L Critically low 136-145 [facility] Comment on above: Performed By: #### C BC #### [facility] [address] [place] [address] Dr. Nehemiah Vargas Urea nitrogen [Mass/Vol] 9.0 mg/dL Normal 7.0-18.0 [facility] Comment on above: Performed By: #### C BC #### [facility] [address] [place] [address] Dr. Nehemiah Vargas Urea nitrogen/Creatinin e [Mass ratio] 10.2 mg/mg Normal [facility] Comment on above: Performed By: #### C BC #### [facility] [address] [address] [address] Nehemiah Vargas TSHon 01-19-2022 TSH 0.322 uIU/mL Critically low 0.358-3.740 [facility] Comment on above: Performed By: #### C BC #### [facility] [address] [place] [address] Dr. Nehemiah Vargas TSH RANGE SEE BELOW Normal [facility] Comment on above: Result Comment: <0.3 4 UIU/ml HYPERTHYROID 0.34-5.60 UIU/ml EUTHYROID >5.60 UIU/ml HYPOTHYROID Performed By: #### C BC #### [facility] [address] [place] [address] Dr. Nehemiah Vargas CARDIAC HEIDI ADMITon 022 CK [Catalytic activity/Vol] 124 U/L Normal 39-308 [facility] Comment on above: Performed By: #### C MADM, CMP, ETH #### [facility] [address] [place] [address] Dr. Nehemiah Vargas CK.MB [Mass/Vol] 3.55 ng/mL Normal <=3.60 [facility] Comment on above: Performed By: #### C MADM, CMP, ETH #### [facility] [address] [place] [address] Dr. Nehemiah Vargas HSTROP 5.7 pg/mL Normal 4.0-76.[address] [facility] Comment on above: Result Comment: CUT- OFF POINTS HAVE BEEN ESTABLISHED BASED ON THE FOURTH UNIVERSAL DEFINITIONS OF MYOCARDIAL INFARCTION. THE UPPER REFERENCE LIMIT (URL) OF TROPONIN, DEFINED THE 99TH PERCENTILE OF cTnI DISTRIBUTION IN A REFERENCE POPULATION, HAS BEEN CONFIRMED THE DECISION THRESHOLD FOR SC DIAGNOSIS. Performed By: #### C SADIE VALLEJO, ETH #### [facility] [address] [address] [address] Nehemiah Vargas RICARDO 62 ng/mL Normal 16-96 [facility] Comment on above: Performed By: #### C GENEVAM, CMP, ETH #### [facility] [address] [address] [address] Nehemiah Vargas CBC AUTO DIFFon 01-18-2022 BASO # 0.0 103/ul Normal 0.0-0.1 [facility] Comment on above: Performed By: #### C BC #### [facility] [address] [address] [address] Nehemiah Vargas Basophils/100 WBC (Bld) 0.4 % Normal 0.2-2.0 [facility] Comment on above: Performed By: #### C BC #### [facility] [address] [place] [address] Dr. Nehemiah Vargas EO # 0.1 103/ul Normal 0.0-0.7 [facility] Comment on above: Performed By: #### C BC #### [facility] [address] [address] [address] Nehemiah Vargas Eosinophils/100 WBC (Bld) 0.8 % Critically low 0.9-7.0 [facility] Comment on above: Performed By: #### C BC #### [facility] [address] [address] [address] Nehemiah Vargas Erythrocyte distribution width (RBC) [Ratio] 12.5 % Normal 11.0-15.0 [facility] Comment on above: Performed By: #### C BC #### [facility] [address] [place] [address] Dr. Nehemiah Vargas Hematocrit (Bld) [Volume fraction] 43.9 % Normal 42.0-54.0 [facility] Comment on above: Performed By: #### C BC #### [facility] [address] [place] [address] Dr. Nehemiah Vargas Hemoglobin (Bld) [Mass/Vol] 14.3 g/dL Normal 14.0-18.0 [facility] Comment on above: Performed By: #### C BC #### [facility] [address] [address] [address] Nehemiah Vargas IG # 0.03 10e3/ul Normal 0.00-0.03 [facility] Comment on above: Performed By: #### C BC #### [facility] [address] [address] [address] Nehemiah Vargas IG % 0.3 % Normal 0.0-0.5 [facility] Comment on above: Performed By: #### C BC #### [facility] [address] [place] [address] Dr. Nehemiah Vargas LYMPH # 0.9 103/ul Critically low 1.2-3.8 [facility] Comment on above: Performed By: #### C BC #### [facility] [address] [place] [address] Dr. Nehemiah Vargas Lymphocytes/100 WBC (Bld) 9.4 % Critically low 20.5-60.0 [facility] Comment on above: Performed By: #### C BC #### [facility] [address] [place] [address] Dr. Nehemiah Vargas MANUAL DIFF REQ NO Normal [facility] Comment on above: Performed By: #### C BC #### [facility] [address] [place] [address] Dr. Nehemiah Vargas MCH (RBC) [Entitic mass] 29.9 pg Normal 25.9-34.0 [facility] Comment on above: Performed By: #### C BC #### [facility] [address] [place] [address] Dr. Nehemiah Vargas MCHC (RBC) [Mass/Vol] 32.6 g/dL Normal 29.9-35.2 [facility] Comment on above: Performed By: #### C BC #### [facility] [address] [place] [address] Dr. Nehemiah Vargas MCV (RBC) [Entitic vol] 91.6 fL Normal 80.0-94.0 [facility] Comment on above: Performed By: #### C BC #### [facility] [address] [address] [address] Nehemiah Vargas MONO # 0.5 103/ul Normal 0.3-0.8 [facility] Comment on above: Performed By: #### C BC #### [facility] [address] [address] [address] Nehemiah Vargas Monocytes/100 WBC (Bld) 5.5 % Normal 1.7-12.0 [facility] Comment on above: Performed By: #### C BC #### [facility] [address] [place] [address] Dr. Nehemiah Vargas NEUT # 7.6 103/ul Critically high 1.4-6.5 [facility] Comment on above: Performed By: #### C BC #### [facility] [address] [place] [address] Dr. Nehemiah Vargas Neutrophils/100 WBC (Bld) 83.6 % Critically high 43.0-75.0 [facility] Comment on above: Performed By: #### C BC #### [facility] [address] [place] [address] Dr. Nehemiah Vargas Platelet mean volume (Bld) [Entitic vol] 9.1 fL Critically low 9.5-13.5 [facility] Comment on above: Performed By: #### C BC #### [facility] [address] [place] [address] Dr. Nehemiah Vargas PLT 169 103/ul Normal 150-[address] [facility] Comment on above: Performed By: #### C BC #### [facility] [address] [place] [address] Dr. Nehemiah Vargas RBC 4.79 106/ul Normal 4.70-6.[address] [facility] Comment on above: Performed By: #### C BC #### [facility] [address] [place] [address] Dr. Nehemiah Vargas WBC 9.1 103/ul Normal 4.0-11.[address] [facility] Comment on above: Performed By: #### C BC #### [facility] [address] [place] [address] Dr. Nehemiah Vargas DRUG SCREEN RAPID (URINE)on 01-18-2022 AMP Negative Normal NEGATIVE [facility] Comment on above: Performed By: #### C BC #### [facility] [address] [place] [address] Dr. Nehemiah Vargas BAR Negative Normal NEGATIVE [facility] Comment on above: Performed By: #### C BC #### [facility] [address] [place] [address] Dr. Nehemiah Vargas BUP Negative Normal NEGATIVE [facility] Comment on above: Performed By: #### C BC #### [facility] [address] [place] [address] Dr. Nehemiah Vargas BZO Positive Abnormal NEGATIVE [facility] Comment on above: Performed By: #### C BC #### [facility] [address] [place] [address] Dr. Nehemiah Vargas JILLIAN Negative Normal NEGATIVE [facility] Comment on above: Performed By: #### C BC #### [facility] [address] [place] [address] Dr. Nehemiah Vargas CUT-OFFS SEE BELOW Normal [facility] Comment on above: Result Comment: AMP [...] ng/mL Performed By: #### C BC #### [facility] [address] [place] [address] Dr. Nehemiah Vargas DRUG CUT HEADER DRUG CLASS TEST SYSTEM CUT-OFF CONCENTRATIONS ARE FOLLOWS: Normal [facility] Comment on above: Performed By: #### C BC #### [facility] [address] [place] [address] Dr. Nehemiah Vargas mAMP Negative Normal NEGATIVE [facility] Comment on above: Performed By: #### C BC #### [facility] [address] [place] [address] Dr. Nehemiah Vargas MTD Negative Normal NEGATIVE [facility] Comment on above: Performed By: #### C BC #### [facility] [address] [place] [address] Dr. Nehemiah Vargas OPI Negative Normal NEGATIVE [facility] Comment on above: Performed By: #### C BC #### [facility] [address] [place] [address] Dr. Nehemiah Vargas OXY Negative Normal NEGATIVE [facility] Comment on above: Performed By: #### C BC #### [facility] [address] [place] [address] Dr. Nehemiah Vargas PCP Negative Normal NEGATIVE [facility] Comment on above: Performed By: #### C BC #### [facility] [address] [place] [address] Dr. Nehemiah Vargas PPX Negative Normal NEGATIVE [facility] Comment on above: Performed By: #### C BC #### [facility] [address] [place] [address] Dr. Nehemiah Vargas TCA Positive Abnormal NEGATIVE [facility] Comment on above: Performed By: #### C BC #### [facility] [address] [place] [address] Dr. Nehemiah Vargas THC Positive Abnormal NEGATIVE [facility] Comment on above: Performed By: #### C BC #### [facility] [address] [place] [address] Dr. Nehemiah Vargas ER URINE PROFILEon 2 Bilirubin Ql (U) Negative Normal NEGATIVE [facility] Comment on above: Performed By: #### C BC #### [facility] [address] [place] [address] Dr. Nehemiah Vargas Clarity (U) CLEAR Normal CLEAR [facility] Comment on above: Performed By: #### C BC #### [facility] [address] [place] [address] Dr. Nehemiah Vargas Color (U) YELLOW Normal YELLOW [facility] Comment on above: Performed By: #### C BC #### [facility] [address] [place] [address] Dr. Nehemiah SANTO A micrscopic examination will be performed if indicated. Normal [facility] Comment on above: Performed By: #### C BC #### [facility] Laboratory [address] [place] [address] Dr. Nehemiah Vargas Glucose Ql (U) Negative Normal NEGATIVE [facility] Comment on above: Performed By: #### C BC #### [facility] Laboratory [address] [place] [address] Dr. Nehemiah Vargas Hemoglobin Ql (U) Negative Normal NEGATIVE [facility] Comment on above: Performed By: #### C BC #### [facility] Laboratory [address] [place] [address] Dr. Nehemiah Vargas Ketones Ql (U) Negative Normal NEGATIVE [facility] Comment on above: Performed By: #### C BC #### [facility] Laboratory [address] [place] [address] Dr. Nehemiah Vargas LEUKOCYTES Negative Normal NEGATIVE [facility] Comment on above: Performed By: #### C BC #### [facility] Laboratory [address] [place] [address] Dr. Nehemiah Vargas Nitrite Ql (U) Negative Normal NEGATIVE [facility] Comment on above: Performed By: #### C BC #### [facility] Laboratory [address] [place] [address] Dr. Nehemiah Vargas pH (U) 6.0 [pH] Normal 5-[address] [facility] Comment on above: Performed By: #### C BC #### [facility] Laboratory [address] [place] [address] Dr. Nehemiah Vargas Protein (U) [Mass/Vol] 30 mg/dL Abnormal NEGATIVE/ TRACE [facility] Comment on above: Performed By: #### C BC #### [facility] Laboratory [address] [place] [address] Dr. Nehemiah Vargas SPEC GRAVITY >=1.030 Abnormal 1.005-<=1.025 [facility] Comment on above: Performed By: #### C BC #### [facility] [address] [place] [address] Dr. Nehemiah Vargas UR MICRO IND INDICATED Normal [facility] Comment on above: Performed By: #### C BC #### [facility] [address] [place] [address] Dr. Nehemiah Vargas Urobilinogen Qn (U) 0.2 {Stevenson'U}/dL Normal 0.2 - 1.0 [facility] Comment on above: Performed By: #### C BC #### [facility] Laboratory [address] [place] [address] Dr. Nehemiah Vargas ETHANOL (BLD ALC)on 01-19-20 22 ALC NOTE NOTE: 80 mg/dl is th e legal limit for a blood alcohol level Normal [facility] Comment on above: Performed By: #### C SADIE VALLEJO, ETH #### [facility] Laboratory [address] [place] [address] Dr. Nehemiah Vargas Ethanol [Mass/Vol] mg/dL Normal [facility] Comment on above: Performed By: #### C SADIE VALLEJO, ETH #### [facility] Laboratory [address] [place] [address] Dr. Nehemiah Vargas PROF 14(COMP METB)on 022 Albumin [Mass/Vol] 3.5 g/dL Normal 3.4-5.0 [facility] Comment on above: Performed By: #### C SADIE VALLEJO, ETH #### [facility] Laboratory [address] [place] [address] Dr. Nehemiah Vargas Albumin/Globulin [Mass ratio] 1.2 {ratio} Normal [facility] Comment on above: Performed By: #### C SADIE VALLEJO, ETH #### [facility] Laboratory [address] [place] [address] Dr. Nehemiah Vargas ALP [Catalytic activity/Vol] 94 U/L Normal 46-116 [facility] Comment on above: Performed By: #### C SADIE VALLEJO, ETH #### [facility] Laboratory [address] [address] [address] Nehemiah Vargas ALT [Catalytic activity/Vol] 25 U/L Normal 16-[address] [facility] Comment on above: Performed By: #### C MADM, CMP, ETH #### [facility] Laboratory [address] [address] [address] Nehemiah Vargas Anion gap [Moles/Vol] 10.3 mmol/L Normal [facility] Comment on above: Performed By: #### C MADM, CMP, ETH #### [facility] [address] [address] [address] Nehemiah Vargas AST [Catalytic activity/Vol] 18 U/L Normal 15-37 [facility] Comment on above: Performed By: #### C MADM, CMP, ETH #### [facility] Laboratory [address] [place] [address] Dr. Nehemiah Vargas Bilirubin [Mass/Vol] 0.3 mg/dL Normal 0.2-1.0 [facility] Comment on above: Performed By: #### C MADM, CMP, ETH #### [facility] [address] [address] [address] Nehemiah Vargas Calcium [Mass/Vol] 8.4 mg/dL Critically low 8.5-10.1 [facility] Comment on above: Performed By: #### C MADM, CMP, ETH #### [facility] [address] [place] [address] Dr. Nehemiah Vargas Chloride [Moles/Vol] 98 mmol/L Normal 98-[address] [facility] Comment on above: Performed By: #### C MADM, CMP, ETH #### [facility] Laboratory [address] [place] [address] Dr. Nehemiah Vargas CO2 [Moles/Vol] 29.1 mmol/L Normal 21.0-32.0 [facility] Comment on above: Performed By: #### C MADM, CMP, ETH #### [facility] [address] [address] [address] Nehemiah Vargas Creatinine [Mass/Vol] 0.78 mg/dL Normal 0.70-1.30 [facility] Comment on above: Performed By: #### C MADM, CMP, ETH #### [facility] [address] [address] [address] Nehemiah Vargas EGFR-AF TUVALUAN >60 Normal >=60 [facility] Comment on above: Performed By: #### C MADM, CMP, ETH #### [facility] [address] [address] [address] Nehemiah Vargas EGFR-NON AF TUVALUAN >60 Normal >=60 [facility] Comment on above: Performed By: #### C MADM, CMP, ETH #### [facility] [address] [address] [address] Nehemiah Vargas Globulin (S) [Mass/Vol] 3.0 g/dL Normal [facility] Comment on above: Performed By: #### C MADM, CMP, ETH #### [facility] [address] [place] [address] Dr. Nehemiah Vargas Glucose [Mass/Vol] 128 mg/dL Critically high 74-106 [facility] Comment on above: Performed By: #### C MADM, CMP, ETH #### [facility] [address] [address] [address] Nehemiah Vargas Potassium [Moles/Vol] 4.4 mmol/L Normal 3.5-5.1 [facility] Comment on above: Performed By: #### C MADM, CMP, ETH #### [facility] [address] [address] [address] Nehemiah Vargas Protein [Mass/Vol] 6.5 g/dL Normal 6.4-8.2 [facility] Comment on above: Performed By: #### C MADM, CMP, ETH #### [facility] [address] [address] [address] Nehemiah Vargas Sodium [Moles/Vol] 133 mmol/L Critically low 136-145 Th [facility] Comment on above: Performed By: #### C MADM, CMP, ETH #### [facility] [address] [address] [address] Nehemiah Vargas Urea nitrogen [Mass/Vol] 7.0 mg/dL Normal 7.0-18.0 [facility] Comment on above: Performed By: #### C SADIE VALLEJO, ETH #### [facility] [address] [place] [address] Dr. Nehemiah Vargas Urea nitrogen/Creatinin e [Mass ratio] 9.0 mg/mg Normal [facility] Comment on above: Performed By: #### C SADIE VALLEJO, ETH #### [facility] [address] [place] [address] Dr. Nehemiah Vargas URINE MICROSCOPIC ONLYon BACTERIA NONE SEEN Normal NONE SEEN [facility] Comment on above: Performed By: #### C BC #### [facility] [address] [place] [address] Dr. Nehemiah Vargas Bacteria identified Cx Nom (U) NOT INDICATED Normal [facility] Comment on above: Performed By: #### C BC #### [facility] [address] [place] [address] Dr. Nehemiah Vargas CAST NONE SEEN Normal NONE SEEN [facility] Comment on above: Performed By: #### C BC #### [facility] [address] [place] [address] Dr. Nehemiah Vargas Crystals LM Nom (Urine sed) NONE SEEN Normal NONE SEEN [facility] Comment on above: Performed By: #### C BC #### [facility] [address] [place] [address] Dr. Nehemiah Vargas Epithelial cells LM Ql (Urine sed) NONE SEEN Normal NONE SEEN /RARE [facility] Comment on above: Performed By: #### C BC #### [facility] [address] [place] [address] Dr. Nehemiah Vargas MUCOUS TRACE Abnormal NONE SEEN [facility] Comment on above: Performed By: #### C BC #### [facility] [address] [place] [address] Dr. Nehemiah Vargas RBC NONE SEEN Abnormal 0-[address] [facility] Comment on above: Performed By: #### C BC #### [facility] [address] [place] [address] Dr. Nehemiah Vargas WBC 0-2 Abnormal NONE SEEN [facility] Comment on above: Performed By: #### C BC #### [facility] [address] [place] [address] Dr. Nehemiah Vargas CBC AUTO DIFFon 01-08-2022 BASO # 0.0 103/ul Normal 0.0-0.1 [facility] Comment on above: Performed By: #### C BC #### [facility] [address] [place] [address] Dr. Nehemiah Vargas Basophils/100 WBC (Bld) 0.3 % Normal 0.2-2.[address] [facility] Comment on above: Performed By: #### C BC #### [facility] [address] [place] [address] Dr. Nehemiah Vargas EO # 0.1 103/ul Normal 0.0-0.[address] [facility] Comment on above: Performed By: #### C BC #### [facility] [address] [place] [address] Dr. Nehemiah Vargas Eosinophils/100 WBC (Bld) 1.3 % Normal 0.9-7.[address] [facility] Comment on above: Performed By: #### C BC #### [facility] [address] [place] [address] Dr. Nehemiah Vargas Erythrocyte distribution width (RBC) [Ratio] 12.6 % Normal 11.0-15.[address] [facility] Comment on above: Performed By: #### C BC #### [facility] [address] [place] [address] Dr. Nehemiah Vargas Hematocrit (Bld) [Volume fraction] 44.9 % Normal 42.0-54.[address] [facility] Comment on above: Performed By: #### C BC #### [facility] [address] [place] [address] Dr. Nehemiah Vargas Hemoglobin (Bld) [Mass/Vol] 14.8 g/dL Normal 14.0-18.0 [facility] Comment on above: Performed By: #### C BC #### [facility] [address] [place] [address] Dr. Nehemiah Vargas IG # 0.01 10e3/ul Normal 0.00-0.03 [facility] Comment on above: Performed By: #### C BC #### [facility] [address] [place] [address] Dr. Nehemiah Vargas IG % 0.1 % Normal 0.0-0.5 [facility] Comment on above: Performed By: #### C BC #### [facility] [address] [place] [address] Dr. Nehemiah Vargas LYMPH # 1.7 103/ul Normal 1.2-3.8 [facility] Comment on above: Performed By: #### C BC #### [facility] [address] [place] [address] Dr. Nehemiah Vargas Lymphocytes/100 WBC (Bld) 25.0 % Normal 20.5-60.0 [facility] Comment on above: Performed By: #### C BC #### [facility] [address] [place] [address] Dr. Nehemiah Vargas MANUAL DIFF REQ NO Normal [facility] Comment on above: Performed By: #### C BC #### [facility] [address] [place] [address] Dr. Nehemiah Vargas MCH (RBC) [Entitic mass] 30.1 pg Normal 25.9-34.0 [facility] Comment on above: Performed By: #### C BC #### [facility] [address] [place] [address] Dr. Nehemiah Vargas MCHC (RBC) [Mass/Vol] 33.0 g/dL Normal 29.9-35.2 [facility] Comment on above: Performed By: #### C BC #### [facility] [address] [place] [address] Dr. Nehemiah Vargas MCV (RBC) [Entitic vol] 91.4 fL Normal 80.0-94.0 [facility] Comment on above: Performed By: #### C BC #### [facility] [address] [place] [address] Dr. Nehemiah Vargas MONO # 0.5 103/ul Normal 0.3-0.8 [facility] Comment on above: Performed By: #### C BC #### [facility] [address] [address] [address] Nehemiah Vargas Monocytes/100 WBC (Bld) 7.5 % Normal 1.7-12.0 [facility] Comment on above: Performed By: #### C BC #### [facility] [address] [place] [address] Dr. Nehemiah Vargas NEUT # 4.6 103/ul Normal 1.4-6.5 [facility] Comment on above: Performed By: #### C BC #### [facility] [address] [place] [address] Dr. Nehemiah Vargas Neutrophils/100 WBC (Bld) 65.8 % Normal 43.0-75.0 [facility] Comment on above: Performed By: #### C BC #### [facility] [address] [place] [address] Dr. Nehemiah Vargas Platelet mean volume (Bld) [Entitic vol] 9.7 fL Normal 9.5-13.5 [facility] Comment on above: Performed By: #### C BC #### [facility] [address] [place] [address] Dr. Nehemiah Vargas PLT 169 103/ul Normal 150-450 [facility] Comment on above: Performed By: #### C BC #### [facility] [address] [place] [address] Dr. Nehemiah Vargas RBC 4.91 106/ul Normal 4.70-6.[address] [facility] Comment on above: Performed By: #### C BC #### [facility] [address] [place] [address] Dr. Nehemiah Vargas WBC 6.9 103/ul Normal 4.0-11.[address] [facility] Comment on above: Performed By: #### C BC #### [facility] [address] [place] [address] Dr. Nehemiah Vargas PROF CHEM 8 (BAS METB)on Anion gap [Moles/Vol] 14.5 mmol/L Normal [facility] Comment on above: Performed By: #### C BC #### [facility] [address] [address] [address] Nehemiah Vargas Calcium [Mass/Vol] 8.9 mg/dL Normal 8.5-10.1 [facility] Comment on above: Performed By: #### C BC #### [facility] [address] [address] [address] Nehemiah Vargas Chloride [Moles/Vol] 98 mmol/L Normal 98-107 [facility] Comment on above: Performed By: #### C BC #### [facility] [address] [address] [address] Nehemiah Vargas CO2 [Moles/Vol] 24.4 mmol/L Normal 21.0-32.0 [facility] Comment on above: Performed By: #### C BC #### [facility] [address] [address] [address] Nehemiah Vargas Creatinine [Mass/Vol] 0.88 mg/dL Normal 0.70-1.30 [facility] Comment on above: Performed By: #### C BC #### [facility] [address] [address] [address] Nehemiah Vargas EGFR-AF TUVALUAN >60 Normal >=60 [facility] Comment on above: Performed By: #### C BC #### [facility] [address] [address] [address] Nehemiah Vargas EGFR-NON AF TUVALUAN >60 Normal >=60 [facility] Comment on above: Performed By: #### C BC #### [facility] [address] [address] [address] Nehemiah Vargas Glucose [Mass/Vol] 152 mg/dL Critically high 74-106 [facility] Comment on above: Performed By: #### C BC #### [facility] [address] [address] [address] Nehemiah Vargas Potassium [Moles/Vol] 3.9 mmol/L Normal 3.5-5.1 [facility] Comment on above: Performed By: #### C BC #### [facility] [address] [place] [address] Dr. Nehemiah Vargas Sodium [Moles/Vol] 133 mmol/L Critically low 136-[address] [facility] Comment on above: Performed By: #### C BC #### [facility] [address] [place] [address] Dr. Nehemiah Vargas Urea nitrogen [Mass/Vol] 7.0 mg/dL Normal 7.0-18.0 [facility] Comment on above: Performed By: #### C BC #### [facility] [address] [place] [address] Dr. Nehemiah Vargas Urea nitrogen/Creatinin e [Mass ratio] 8.0 mg/mg Normal [facility] Comment on above: Performed By: #### C BC #### [facility] [address] [place] [address] Dr. Nehemiah Vargas CBC AUTO DIFFon 12-15-2021 BASO # 0.1 103/ul Normal 0.0-0.1 [facility] Comment on above: Performed By: #### C BC #### [facility] [address] [place] [address] Dr. Nehemiah Vargas Basophils/100 WBC (Bld) 0.5 % Normal 0.2-2.0 [facility] Comment on above: Performed By: #### C BC #### [facility] [address] [place] [address] Dr. Nehemiah Vargas EO # 0.2 103/ul Normal 0.0-0.7 [facility] Comment on above: Performed By: #### C BC #### [facility] [address] [place] [address] Dr. Nehemiah Vargas Eosinophils/100 WBC (Bld) 1.5 % Normal 0.9-7.[address] [facility] Comment on above: Performed By: #### C BC #### [facility] [address] [place] [address] Dr. Nehemiah Vargas Erythrocyte distribution width (RBC) [Ratio] 12.9 % Normal 11.0-15.0 [facility] Comment on above: Performed By: #### C BC #### [facility] [address] [place] [address] Dr. Nehemiah Vargas Hematocrit (Bld) [Volume fraction] 47.2 % Normal 42.0-54.0 [facility] Comment on above: Performed By: #### C BC #### [facility] [address] [place] [address] Dr. Nehemiah Vargas Hemoglobin (Bld) [Mass/Vol] 15.6 g/dL Normal 14.0-18.0 [facility] Comment on above: Performed By: #### C BC #### [facility] [address] [place] [address] Dr. Nehemiah Vargas IG # 0.02 10e3/ul Normal 0.00-0.03 [facility] Comment on above: Performed By: #### C BC #### [facility] [address] [place] [address] Dr. Nehemiah Vargas IG % 0.2 % Normal 0.0-0.5 [facility] Comment on above: Performed By: #### C BC #### [facility] [address] [place] [address] Dr. Nehemiah Vargas LYMPH # 1.5 103/ul Normal 1.2-3.8 [facility] Comment on above: Performed By: #### C BC #### [facility] [address] [place] [address] Dr. Nehemiah Vargas Lymphocytes/100 WBC (Bld) 13.4 % Critically low 20.5-60.0 [facility] Comment on above: Performed By: #### C BC #### [facility] [address] [place] [address] Dr. Nehemiah Vargas MANUAL DIFF REQ NO Normal [facility] Comment on above: Performed By: #### C BC #### [facility] [address] [place] [address] Dr. Nehemiah Vargas MCH (RBC) [Entitic mass] 30.2 pg Normal 25.9-34.0 [facility] Comment on above: Performed By: #### C BC #### [facility] [address] [place] [address] Dr. Nehemiah Vargas MCHC (RBC) [Mass/Vol] 33.1 g/dL Normal 29.9-35.2 [facility] Comment on above: Performed By: #### C BC #### [facility] [address] [address] [address] Nehemiah Vargas MCV (RBC) [Entitic vol] 91.3 fL Normal 80.0-94.0 [facility] Comment on above: Performed By: #### C BC #### [facility] [address] [address] [address] Nehemiah Vargas MONO # 0.8 103/ul Normal 0.3-0.[address] [facility] Comment on above: Performed By: #### C BC #### [facility] [address] [place] [address] Dr. Nehemiah Vargas Monocytes/100 WBC (Bld) 7.2 % Normal 1.7-12.0 [facility] Comment on above: Performed By: #### C BC #### [facility] [address] [place] [address] Dr. Nehemiah Vargas NEUT # 8.4 103/ul Critically high 1.4-6.5 [facility] Comment on above: Performed By: #### C BC #### [facility] [address] [place] [address] Dr. Nehemiah Vargas Neutrophils/100 WBC (Bld) 77.2 % Critically high 43.0-75.[address] [facility] Comment on above: Performed By: #### C BC #### [facility] [address] [place] [address] Dr. Nehemiah Vargas Platelet mean volume (Bld) [Entitic vol] 9.3 fL Critically low 9.5-13.[address] [facility] Comment on above: Performed By: #### C BC #### [facility] [address] [place] [address] Dr. Nehemiah Vargas PLT 171 103/ul Normal 150-[address] [facility] Comment on above: Performed By: #### C BC #### [facility] [address] [place] [address] Dr. Nehemiah Vargas RBC 5.17 106/ul Normal 4.70-6.[address] [facility] Comment on above: Performed By: #### C BC #### [facility] [address] [place] [address] Dr. Nehemiah Vargas WBC 10.9 103/ul Normal 4.0-11.0 [facility] Comment on above: Performed By: #### C BC #### [facility] [address] [place] [address] Dr. Nehemiah Vargas PROF 14(COMP METB)on 022 Albumin [Mass/Vol] 3.6 g/dL Normal 3.4-5.0 [facility] Comment on above: Performed By: #### C BC #### [facility] [address] [place] [address] Dr. Nehemiah Vargas Albumin/Globulin [Mass ratio] 1.2 {ratio} Normal [facility] Comment on above: Performed By: #### C BC #### [facility] [address] [place] [address] Dr. Nehemiah Vargas ALP [Catalytic activity/Vol] 105 U/L Normal 46-[address] [facility] Comment on above: Performed By: #### C BC #### [facility] [address] [place] [address] Dr. Nehemiah Vargas ALT [Catalytic activity/Vol] 21 U/L Normal 16-[address] [facility] Comment on above: Performed By: #### C BC #### [facility] [facility] [address] [place] [address] Dr. Nehemiah Vargas Anion gap [Moles/Vol] 11.4 mmol/L Normal [facility] Comment on above: Performed By: #### C BC #### [facility] [address] [place] [address] Dr. Nehemiah Vargas AST [Catalytic activity/Vol] 18 U/L Normal 15-37 [facility] Comment on above: Performed By: #### C BC #### [facility] [address] [place] [address] Dr. Nehemiah Vargas Bilirubin [Mass/Vol] 0.4 mg/dL Normal 0.2-1.0 [facility] Comment on above: Performed By: #### C BC #### [facility] [address] [place] [address] Dr. Nehemiah Vargas Calcium [Mass/Vol] 8.2 mg/dL Critically low 8.5-10.[address] [facility] [facility] Comment on above: Performed By: #### C BC #### [facility] [address] [place] [address] Dr. Nehemiah Vargas Chloride [Moles/Vol] 96 mmol/L Critically low 98-107 [facility] Comment on above: Performed By: #### C BC #### [facility] [address] [place] [address] Dr. Nehemiah Vargas CO2 [Moles/Vol] 28.5 mmol/L Normal 21.0-32.0 [facility] Comment on above: Performed By: #### C BC #### [facility] [address] [place] [address] Dr. Nehemiah Vargas Creatinine [Mass/Vol] 0.88 mg/dL Normal 0.70-1.30 [facility] Comment on above: Performed By: #### C BC #### [facility] [address] [place] [address] Dr. Nehemiah Vargas EGFR-AF TUVALUAN >60 Normal >=60 [facility] Comment on above: Performed By: #### C BC #### [facility] [address] [place] [address] Dr. Nehemiah Vargas EGFR-NON AF TUVALUAN >60 Normal >=60 [facility] Comment on above: Performed By: #### C BC #### [facility] [address] [place] [address] Dr. Nehemiah Vargas Globulin (S) [Mass/Vol] 3.1 g/dL Normal [facility] Comment on above: Performed By: #### C BC #### [facility] [address] [place] [address] Dr. Nehemiah Vargas Glucose [Mass/Vol] 121 mg/dL Critically high 74-106 T [facility] Comment on above: Performed By: #### C BC #### [facility] [address] [address] [address] Nehemiah Vargas Potassium [Moles/Vol] 3.9 mmol/L Normal 3.5-5.1 [facility] Comment on above: Performed By: #### C BC #### [facility] [address] [place], [place] [address] Dr. Nehemiah Vargas Protein [Mass/Vol] 6.7 g/dL Normal 6.1-8.2 [facility] Comment on above: Performed By: #### C BC #### [facility] [address] [address] [address] Nehemiah Vargas Sodium [Moles/Vol] 132 mmol/L Critically low 136-145 Th [facility] Comment on above: Performed By: #### C BC #### [facility] [address] [address] [address] Nehemiah Vargas Urea nitrogen [Mass/Vol] 8.0 mg/dL Normal 7.0-18.0 [facility] Comment on above: Performed By: #### C BC #### [facility] [address] [address] [address] Nehemiah Vargas Urea nitrogen/Creatinin e [Mass ratio] 9.1 mg/mg Normal [facility] Comment on above: Performed By: #### C BC #### [facility] [address] [place], [place] [address] Dr. Nehemiah Vargas Vital Signs Date Time Vital Sign Value Performing Clinician Facility 12-13-2023 10:20-040 Body height 190.5 cm MD Shaikh Schuster Work Phone: [facility] 12-13-2023 10:20-040 Body mass index (BMI) [Ratio] 20.3 kg/m2 MD Shaikh Schuster Work Phone: [facility] 12-13-2023 10:20-040 Body weight 73.93 kg MD Shaikh Schuster Work Phone: [facility] 12-01-2023 14:25-0400 Diastolic blood pressure 99 mm[Hg] MD Shaikh Schuster Work Phone: [facility] 12-01-2023 14:25-0400 Heart rate 77 /min MD Shaikh Schuster Work Phone: [facility] 12-01-2023 14:25-0400 Systolic blood pressure 129 mm[Hg] MD Shaikh Schuster Work Phone: [facility] 12-01-2023 09:10-0400 Respiratory rate 18 /min MD Shaikh Schuster Work Phone: [facility] 12-01-2023 09:10-0400 SaO2% (BldA) [Mass fraction] 98 % MD Shaikh Schuster Work Phone: [facility] 06-20-2023 10:10-0400 Body height 190.5 cm MD Shaikh Schuster Work Phone: [facility] 06-20-2023 10:10-0400 Body weight 68.03 kg MD Shaikh Schuster Work Phone: [facility] 12-01-2021 11:20-0400 Body height 185.42 cm Js May Other [facility] Other 12-01-2021 11:20-0400 Body mass index (BMI) [Ratio] 21.77 kg/m2 Js May Other [facility] Other 12-01-2021 11:20-0400 Body weight 74.84 kg Js May Other [facility] Other 10-09-2021 08:25-0500 Body height 190.5 cm MD Shaikh Schuster Work Phone: [facility] 10-09-2021 08:25-0500 Body weight 72.57 kg MD Shaikh Schuster Work Phone: [facility] 06-02-2021 12:20-0400 Body height 185.42 cm Js May Other [facility] Other 06-02-2021 12:20-0400 Body mass index (BMI) [Ratio] 21.77 kg/m2 Js May Other [facility] Other 06-02-2021 12:20-0400 Body weight 74.84 kg Js May Other [facility] Other 06-02-2021 12:20-0400 Diastolic blood pressure 82 mm[Hg] Js May Other [facility] Other 06-02-2021 12:20-0400 Systolic blood pressure 138 mm[Hg] Js May Other [facility] Other Encounters Encounter Date Encounter Type Care Provider Facility Start: 03-21-2024 End: 03-21-2024 Patient encounter procedure MD Shaikh Schuster Work Phone: [facility] Work Phone: Start: 03-21-2024 End: 03-21-2024 ambulatory MD Shaikh Schuster Work Phone: [facility] Work Phone: Start: 02-27-2024 End: 02-27-2024 ambulatory VANDA WOLFE Not Available Start: 12-13-2023 End: 12-13-2023 ambulatory MD Shaikh Schuster Work Phone: [facility] Work Phone: Start: 12-13-2023 End: 12-13-2023 Patient encounter procedure MD Shaikh Schuster Work Phone: [facility] Work Phone: Start: 12-12-2023 End: 12-12-2023 Patient encounter procedure MD Shaikh Schuster Work Phone: [facility] [place] Work Phone: Start: 12-12-2023 End: 12-12-2023 ambulatory MD Shaikh Schuster Work Phone: [facility] Work Phone: Start: 12-07-2023 End: 12-07-2023 ambulatory OBEY LOWE Not Available Start: 12-01-2023 Registered Recurring MD Shaikh Schuster Work Phone: [facility] Work Phone: Start: 06-20-2023 End: 06-20-2023 Patient encounter procedure MD Shaikh Schuster Work Phone: [facility] [place] Work Phone: Start: 06-20-2023 End: 06-20-2023 ambulatory MD Shaikh Schuster Work Phone: [facility] Work Phone: Start: 11-29-2022 End: 11-29-2022 ambulatory MD Shaikh Schuster Work Phone: [facility] Work Phone: Start: 11-29-2022 End: 11-29-2022 Patient encounter procedure MD Shaikh Schuster Work Phone: [facility] [place] Work Phone: Start: 09-16-2022 End: 09-17-2022 ambulatory OBEY LOWE Facility:[facility] Start: 04-08-2022 End: 04-09-2022 ambulatory NITHYA MUNOZ Facility:[facility] Start: 02-04-2022 End: 02-06-[address] DOCTOR LYNN Facility:[facility] Start: 01-24-2022 End: 01-24-2022 ambulatory SHAIKH Farida SCUHSTER Facility:[facility] Start: 01-22-2022 End: 01-22-[address] IZZY CHAMPAGNE Facility:[facility] Start: 01-19-2022 End: 01-20-2022 ambulatory SHAIKH Farida SCHUSTER Facility:[facility] Start: 01-18-2022 End: 01-18-2022 ambulatory SALVADOR CHRISTIE Facility:[facility] Start: 01-08-2022 End: 01-08-2022 ambulatory MARIA ALEJANDRA FRANCOIS Facility:[facility] Start: 12-21-2021 End: 12-21-2021 Patient encounter procedure MD Shaikh Schuster Work Phone: [facility] [address] Start: 12-15-2021 End: 12-16-[address] IZZY VERGARA Facility:[facility]1 Start: 12-01-2021 End: 12-01-2021 ambulatory Js May Other [facility] [employer] Other Start: 12-01-2021 Office outpatient visit 25 minutes Js May [facility] Start: 11-19-2021 End: 11-19-2021 Patient encounter procedure MD Shaikh Schuster Work Phone: [facility] [place] Start: 10-15-2021 End: 10-16-[address] IZZY VERGARA Facility:[facility]1 Start: 10-09-2021 End: 10-09-2021 Patient encounter procedure MD Shaikh Schuster Work Phone: [facility] [place] Start: 06-02-2021 Office outpatient visit 15 minutes Js May [facility] Start: 06-02-2021 Telephone encounter Js May [facility] Procedures Date Procedure Procedure Detail [...] Author Start: 03-21-2024 MR Unspecified body region [facility] Start: 03-21-2024 MRI of head MR head/brain wo/w con [facility] Payers Date Payer Category Payer Medicaid [id number] 1980 Unknown [id number] 2.16.84 [id number] 1979 Unknown [id number] 2.16.84 [id number] 1979 Unknown [id number] .16.84 [id number] 1979 Unknown [id number] .16.84 [id number] 1979 Unknown [id number] 2.16.84 [id number] 1979 Unknown [id number] 2.16.84 [id number] 1979 Unknown [id number] 2.16.84 [id number] 1979 Unknown [id number] 2.16.84 0.1.266490.3.579.2.593 1979 Unknown [id number] 2.16.84 [id number] 1979 Unknown [id number] 2.16.84 [id number] 1979 Unknown [id number] 2.16.84 [id number] 1979 Unknown [id number] 2.16.84 [id number] 1959 Unknown [id number] Self-pay Self Pay [id number] Social History Date Type Detail Facility Start: 12-01-2020 Tobacco smoking status TNIS Ex-smoker (finding) [facility] Start: 1980 Sex Assigned At Male F [facility] Sex Assigned At Sex Assigned At Bir [facility] Other Medical Equipment Procedure Code Equipment Code [...] FDA Start: 11-09-2017 Spinal fusion graft kit [id number] FDA Start: 12-01-2020 Bone-screw internal spinal fixation system, non-sterile [id number] FDA Start: 12-01-2020 Bone-screw internal spinal fixation system, non-sterile [id number] FDA Start: 12-01-2020 Polymeric spinal fusion cage, non-sterile [id number] FDA Start: 12-01-2020 Bone-screw internal spinal fixation system, non-sterile [id number] FDA Start: 12-01-2020 Evaluation note 12-01-2021 Note [...] the active MS that this patient has. [facility] Other Evaluation note 06-02-2021 Note Date & [...] M51.36) May, Multiple sclerosis (ICD-10 - G35) [facility] Other Evaluation note Note Date & Type Note Facility Evaluation note No assessment information [facility] Work Phone: Evaluation note Note Date & Type Note Facility Evaluation note No Information [employer] Payment Other History general Narrative - Reported Note Date & Type Note Facility History general Narrative - Reported Type Medical History multiple sclerosis Medical History Patient was born with one kidney Medical History degenerative disc disease Medical History anxiety Medical History depression Surgical History lumbar laminectomy Surgical History Chest tube Surgical History nephrectomy Hospitalization History See Above [facility] Other History general Narrative - Reported Note [...] Lumbar fusion-Doctor May Hospitalization History See Above [facility] Other Chief Complaint and Reason for Visit [...] DATE CREATED AUTHOR AUTHOR'S ORGANIZ ATION 02/28/2024 [facility] EPIC DATE CREATED AUTHOR AUTHOR'S ORGANIZ ATION 03/24/2024 [facility] FOR RECORDS PERTAINING TO [...] BE BASED ON THE PRIMARY CLINICAL RECORDS. [facility] [employer] [facility]. provides no warranty or guarantee of the accuracy or completeness of information in this document.
--- NOTE | 2024-04-23 19:40 | PC.NURSE ---
Patient had fall appro. 15 minutes prior to arrival. Patient reports tripping and falling landing on left side. Left arm pain, and limited ROM, patient had recent surgery and has been having pain and limited ROM to left arm. Skin to left arm pink and warm, pulses present, no swelling, redness or bruising noted.
--- NOTE | 2024-04-23 19:43 | XR_ITS ---
[id number] Patient Name: TAVIA CANALES MRN: [id number] date: 1980 Sex: M Assigned Patient Location: ER Current Patient Location: Accession/Order Number: [id number] Exam Date: 04/23/2024 19:50 Report Date: 04/23/2024 21:52 At the request of: KRISTAN HENSLEY Procedure: XR shoulder LT min 2V EXAM: XR shoulder LT min 2V HISTORY: Fall COMPARISON: 04/19/2024 TECHNIQUE: 3 views of the left shoulder. FINDINGS: Bones: Redemonstration of subacute fracture of left humeral neck. No acute fracture. No aggressive appearing bony lesion. Joints: Normal alignment. No effusion. Soft tissues: Unremarkable. XR/XR shoulder LT min 2V IMPRESSION: Redemonstration of subacute fracture of left humeral neck. No acute fracture or dislocation. Electronically authenticated by: ANTWAN ESCOTO Date: 04/23/2024 21:52
--- NOTE | 2024-04-23 20:02 | ED_ITS ---
HPI HPI - Extremity Injury (Upper) General Chief Complaint: Extremity Injury, Upper Stated Complaint: UPPER EXTREMITY PAIN D/T INJURY Time Seen by Provider: 04/23/24 19:43 Source: patient Mode of arrival: walk-in Limitations: no limitations History of Present Illness HPI narrative: Patient is a 43-year-old male who presents to the emergency department for the evaluation of left arm pain. Patient sustained a left humerus fracture about 2 months ago, he was seen by orthopedics and cleared as the fracture is healing. He was seen in this emergency department 4 days ago for continued pain and prescribed a short course of analgesics. He states just prior to arrival he tripped and fell, he has a history of MS and does walk with a cane. He states he landed on his left arm and complains of increased pain to the left shoulder. He was concerned that he may have reinjured the fracture. No head injury or other associated injuries. Related Data Home Medications ?Medication ?Instructions ?Recorded ?Confirmed buspirone 10 mg tablet 10 mg PO BID 04/19/24 04/23/24 ergocalciferol (vitamin D2) 1,250 1,250 mcg PO QWEEK 04/19/24 04/23/24 mcg (50,000 unit) capsule gabapentin 800 mg tablet 800 mg PO TID 04/19/24 04/23/24 metoprolol succinate 50 mg 50 mg PO .QD 04/19/24 04/23/24 tablet,extended release 24 hr oxcarbazepine 300 mg tablet 300 mg PO BID 04/19/24 04/23/24 quetiapine 300 mg tablet 300 mg PO .QHS 04/19/24 04/23/24 Previous Rx's ?Medication ?Instructions ?Recorded methocarbamol 750 mg tablet 750 mg PO TID PRN pain #20 tabs 04/19/24 oxycodone-acetaminophen 5 mg-325 1 tab PO Q6H PRN pain 3 days #12 04/19/24 mg tablet (Percocet) tabs Allergies Allergy/AdvReac Type Severity Reaction Status Date / Time Penicillins AdvReac Mild Vomiting Verified 04/23/24 19:33 Opioid HPI Opioid Management Most Recent Pain and Opioid Data: No Data to Display Review of Systems ROS Constitutional Denies: fever or chills Ears, nose, mouth, and throat Denies: throat pain or nasal congestion Cardiovascular Denies: chest pain Respiratory Denies: shortness of breath Gastrointestinal Denies: nausea or vomiting Musculoskeletal Reports: extremity pain; Denies: back pain or neck pain Integumentary/Breast Denies: rash Neurological Denies: numbness in extremities or weakness in extremities Hematologic/Lymphatic Denies: easy bruising or easy bleeding Exam Narrative Exam Narrative: Gen.: Awake, alert, in no distress Head: Normocephalic, atraumatic ENT: Moist mucous membranes Respiratory: No respiratory distress Extremities: Diffuse pain to the left shoulder and left proximal humerus with no obvious deformity or sulcus sign. No bony tenderness of the left elbow or left forearm with 2+ left radial pulse Psych: Normal mood and affect Neuro: No focal neuro deficit Skin: Warm, dry, intact Constitutional Vital Signs, click to edit/add: Last Vital Signs Temp 98.1 F 04/23/24 19:30 Pulse 83 04/23/24 19:30 Resp 18 04/23/24 19:30 BP 142/97 H 04/23/24 19:30 Pulse Ox 98 04/23/24 19:30 O2 Del Method Room Air 04/23/24 19:30 Course Vital Signs Vital signs: Vital Signs Temperature 98.1 F 04/23/24 19:30 Pulse Rate 83 04/23/24 19:30 Respiratory Rate 18 04/23/24 19:30 Blood Pressure 142/97 H 04/23/24 19:30 Pulse Oximetry 98 04/23/24 19:30 Oxygen Delivery Method Room Air 04/23/24 19:30 Temperature 98.1 F 04/23/24 19:30 Pulse Rate 83 04/23/24 19:30 Respiratory Rate 18 04/23/24 19:30 Blood Pressure 142/97 H 04/23/24 19:30 Pulse Oximetry 98 04/23/24 19:30 Oxygen Delivery Method Room Air 04/23/24 19:30 MDM - Extremity Injury (Upper) MDM Narrative Medical decision making narrative: Left shoulder x-rays are unchanged from previous, no evidence of acute fracture or dislocation. Patient placed in a sling and remains neurovascularly intact. Rest, ice, gentle stretching. He was sent home with pain medication for this evening, follow-up orthopedics and return to the ER if symptoms change or worsen. SUPERVISED APC VISIT, PHYSICIAN ATTESTATION: Based on the medical record the care appears appropriate. ? Medical Records Attestation: I reviewed the patient's medical records. Imaging Data XR shoulder: Attestation: I have reviewed the pertinent imaging results. Discharge Plan Discharge Stand Alone Forms: Work/School Release, Portal Instructions Chief Complaint: Extremity Injury, Upper Clinical Impression: Fall from standing, Acute pain of left shoulder Patient Disposition: Home, Self-Care Time of Disposition Decision: 20:01 Condition: Good Prescriptions / Home Meds: No Action quetiapine 300 mg tablet 300 mg PO .QHS oxcarbazepine 300 mg tablet 300 mg PO BID gabapentin 800 mg tablet 800 mg PO TID buspirone 10 mg tablet 10 mg PO BID ergocalciferol (vitamin D2) 1,250 mcg (50,000 unit) capsule 1,250 mcg PO QWEEK metoprolol succinate 50 mg tablet extended release 24 hr 50 mg PO .QD oxycodone-acetaminophen [Percocet] 5-325 mg tablet 1 tab PO Q6H PRN (Reason: pain) 3 Days Qty: 12 0RF Rx Instructions: DX: M52.512 methocarbamol 750 mg tablet 750 mg PO TID PRN (Reason: pain) Qty: 20 0RF Print Language: Faroese Instructions: Shoulder Pain (ED) Referrals: Carter Ortega MD [Primary Care Provider] - 1 week
[2024-04-23] MEDS: OXYCODONE HCL/ACETAMINOPHEN 5MG/325MG 2 TAB PO (20:19)
== END 2024-04-23 20:22 | disposition home or self-care (01) ==
PROVIDERS: Emergency Provider Student in an Organized Health Care Education/Training Program; PCP Family Medicine
DX: M25.512 Pain in left shoulder (principal); G35 Multiple sclerosis; Z91.81 History of falling; Z87.81 Personal history of (healed) traumatic fracture
CPT/HCPCS: 73030; 99283

== ENCOUNTER 2024-05-17 14:16 | Outpatient (OUT) | payer OTHER, SELFPAY ==
--- OUTSIDE RECORDS SUMMARY | 2024-05-17 14:31 | XMS_ITS | CCD ---
Author Organization [facility] CliniSyn[facility] Care Team Providers Care Internal Medicine Nurse Name Role Phone MD Tracey Schuster Primary Care Provider [phone] WALDO Lopez Attending Provider [phone] MD Js May Attending Provider WALDO Camarena Attending Provider [phone] Js May Unavailable OBEY LOPEZ Attending Unavailable OBEY LOPEZ Consulting Unavailable FAWWAD, WEBB H Primary Care Unavailable OBEY LOPEZ Admitting Unavailable BENEDICT, DR MAGANA Attending Unavailable BENEDICT, DR MAGANA Admitting Unavailable FAWWAD, WEBB H Primary Care Unavailable ALESSANDRO, MARIA ALEJANDRA Admitting Unavailable ALESSANDRO, MARIA ALEJANDRA Attending Unavailable ALESSANDRO, MARIA ALEJANDRA Consulting Unavailable FAWWAD, WEBB H Primary Care Unavailable SHAHNAZ SALVADOR Consulting Unavailable FAWWAD, WEBB H Primary Care Unavailable SHAHNAZ, SALVADOR Admitting Unavailable SALVADOR CHRISTIE Attending Unavailable ZIEBFRIEDA, [...] Consulting Unavailable FAWWAD, WEBB H Admitting Unavailable FAWWAD, WEBB H Attending Unavailable NITHYA MUNOZ Consulting Unavailable ALEXANDER AHMAD Admitting Unavailable NITHYA MUNOZ Attending Unavailable [facility] Unavailable MD Tracey Schuster Primary Care Provider MD Js May Attending Provider MD Trcaey Schuster Primary Care Provider WALDO Lopez Attending Provider MD Tracey Schuster Primary Care Provider WALDO Lopez Attending Provider WALDO Lopez Referring Provider MD Js May Attending Provider MD Jagdish Schusterikh Primary Care Provider WALDO Sunshine Attending Provider Obey Lopez Admitting Unavailable Obey Lopez Attending Unavailable [facility] Care Unavailable Js May Admitting Unavailable Js May Attending [facility] Un[facility] Vanda Sunshine Admitting Unavailable Vanda Sunshine Attending Unavailable [facility] Unavailable OBEY LOPEZ Attending Unavailable VANDA SUNSHINE Attending Unavailable VANDA SUNSHINE Attending Unavailable GANESH ELIZONDO Attending Unavailabl e Allergies Allergy Classification Reported Allergen(s) Allergy Type Date of Onset Reaction(s) Facility (6 sources) NSAIDs Propensity to adverse reactions 04-16-20 20 Contraindicated R/T 1 kidney [facility] (7 sources) Penicillins; Translations: [Penicillins] Propensity to adverse reactions 04-06-20 15 Vomiting, Vomiting, N/V [facility] (6 sources) penicillAMINE Drug Allergy 12-01-19 23 Unknown, Unknown Reaction [facility] (6 sources) Anti-Inflammator y Enzyme Drug allergy 12-01-19 23 Unknown, Unknown Reaction [facility] (1 source) Penicillin Drug Allergy N/V [employer] Other Medications Current Medications Medication Drug Class(es) [...] 01-26-2022 Episodic Other aftercare (1 source) Other roasterman (current) drug therapy; Translations: [OTH GALLERY INTERN CURRENT DRUG THERAPY] Onset: 02-01-2022 Episodic Other [...] Reference Range Facil ity MR head/brain wo/w [place] MR head/brain wo/w [facility] [place] [address] MRI Report Signed Patient: Tavia Canales II MR#: [id number] : 1980 Acct:[id number] Age/Sex: 43 / M ADM Date: 03/21/24 Loc: MR Room: Type: [facility] Attending Dr: Vanda Sunshine PA-C Copies to: Vanda Sunshine PA-C Ordering Provider: Vanda Sunshine PA-C Date of Service: 03/21/24 MR/MR head/brain [...] Wyatt Ramos M.D.03/22/2024 8:31 AM Dictation Location: [place] [address] Transcribed By: [facility] 03/22/24830 Dictated By: Wyatt Ramos DO 03/21/241923 Signed By: 03/22/24830 Normal [facility] XR lumbar spine AP/LAT/FLX/E XTon 12-12-2023 XR lumbar spine AP/LAT/FLX/EXT [facility] [place] [address] XRay Report Signed Patient: Tavia Canales II MR#: [id number] : 1980 Acct:[id number] Age/Sex: 43 / M ADM Date: 12/12/23 Loc: XD Room: Type: [facility] Attending Dr: Js May MD [...] Heidi Richardson M.D.12/12/2023 8:25 PM Dictation Location: [place] [address] Transcribed By: [facility] 12/12/232024 Dictated By: Heidi Richardson II, MD 12/12/232023 Signed By: 12/12/232024 Normal [facility] MR cervical spine wo/w conon 06-20-2023 MR cervical spine wo/w con [facility] [place] [address] MRI Report Signed Patient: Tavia Canales II MR#: [id number] : 1980 Acct:[id number] Age/Sex: 42 / M ADM Date: 06/20/23 Loc: Room: Type: [facility] Attending Dr: Obey Lopez PA-C [...] Heidi Richardson M.D.06/20/2023 1:44 PM Dictation Location: [place] [address] Transcribed By: [facility] 06/20/23 1344 Dictated By: Heidi Richardson II, MD 06/20/23 1333 Signed By: 06/20/23 134 Normal [facility] MR thoracic spine wo/w [place] 06-20-2023 MR thoracic spine wo/w con [facility] [place] [address] MRI Report Signed Patient: Tavia Canales II MR#: [id number] : 1980 Acct:[id number] Age/Sex: 42 / M ADM Date: 06/20/23 Loc: MR Room: Type: [facility] Attending Dr: Obey Lopez PA-C [...] Heidi Richardson M.D.06/20/2023 1:37 PM Dictation Location: [place] [address] Transcribed By: [facility] 06/20/231336 Dictated By: Heidi Richardson II, MD 06/20/231330 Signed By: 06/20/231336 Normal [facility] CBC AUTO DIFFon 09-16-2022 BASO # 0.0 103/ul Normal 0.0-0.1 [facility] Comment on above: Performed By: #### C BC #### [facility] [address] [place] [address] Dr. Nehemiah Vargas Basophils/100 WBC (Bld) 0.5 % Normal 0.2-2.0 [facility] Comment on above: Performed By: #### C BC #### [facility] [address] [place] [address] Dr. Nehemiah Vargas EO # 0.0 103/ul Normal 0.0-0.7 [facility] Comment on above: Performed By: #### C BC #### [facility] [address] [place] [address] Dr. Nehemiah Vargas Eosinophils/100 WBC (Bld) 0.5 % Critically low 0.9-7.0 [facility] Comment on above: Performed By: #### C BC #### [facility] [address] [place] [address] Dr. Nehemiah Vargas Erythrocyte distribution width (RBC) [Ratio] 13.2 % Normal 11.0-15.0 [facility] Comment on above: Performed By: #### C BC #### [facility] [address] [place] [address] Dr. Nehemiah Vargas Hematocrit (Bld) [Volume fraction] 50.1 % Normal 42.0-54.0 [facility] Comment on above: Performed By: #### C BC #### [facility] [address] [place] [address] Dr. Nehemiah Vargas Hemoglobin (Bld) [Mass/Vol] 15.2 g/dL Normal 14.0-18.0 [facility] Comment on above: Performed By: #### C BC #### [facility] [address] [place] [address] Dr. Nehemiah Vargas IG # 0.02 10e3/ul Normal 0.00-0.03 [facility] Comment on above: Performed By: #### C BC #### [facility] [address] [place] [address] Dr. Nehemiah Vargas IG % 0.3 % Normal 0.0-0.5 [facility] Comment on above: Performed By: #### C BC #### [facility] [address] [place] [address] Dr. Nehemiah Vargas LYMPH # 1.8 103/ul Normal 1.2-3.8 [facility] Comment on above: Performed By: #### C BC #### [facility] [address] [place] [address] Dr. Nehemiah Vargas Lymphocytes/100 WBC (Bld) 22.9 % Normal 20.5-60.0 [facility] Comment on above: Performed By: #### C BC #### [facility] [address] [place] [address] Dr. Nehemiah Vargas MANUAL DIFF REQ NO Normal [facility] Comment on above: Performed By: #### C BC #### [facility] [address] [place] [address] Dr. Nehemiah Vargas MCH (RBC) [Entitic mass] 29.9 pg Normal 25.9-34.0 [facility] Comment on above: Performed By: #### C BC #### [facility] [address] [place] [address] Dr. Nehemiah Vargas MCHC (RBC) [Mass/Vol] 30.3 g/dL Normal 29.9-35.2 [facility] Comment on above: Performed By: #### C BC #### [facility] [address] [place] [address] Dr. Nehemiah Vargas MCV (RBC) [Entitic vol] 98.4 fL Critically high 80.0-94.0 [facility] Comment on above: Performed By: #### C BC #### [facility] [address] [place] [address] [address] Nehemiah Vargas MONO # 0.5 103/ul Normal 0.3-0.8 [facility] Comment on above: Performed By: #### C BC #### [facility] [address] [place] [address] [address] Nehemiah Vargas Monocytes/100 WBC (Bld) 6.7 % Normal 1.7-12.0 [facility] Comment on above: Performed By: #### C BC #### [facility] [address] [place] [address] Dr. Nehemiah Vargas NEUT # 5.5 103/ul Normal 1.4-6.5 [facility] Comment on above: Performed By: #### C BC #### [facility] [address] [place] [address] Dr. Nehemiah Vargas Neutrophils/100 WBC (Bld) 69.1 % Normal 43.0-75.0 [facility] Comment on above: Performed By: #### C BC #### [facility] [address] [place] [address] Dr. Nehemiah Vargas Platelet mean volume (Bld) [Entitic vol] 10.1 fL Normal 9.5-13.5 [facility] Comment on above: Performed By: #### C BC #### [facility] [address] [place] [address] Dr. Nehemiah Vargas PLT 159 103/ul Normal 150-450 [facility] Comment on above: Performed By: #### C BC #### [facility] [address] [place] [address] Dr. Nehemiah Vargas RBC 5.09 106/ul Normal 4.70-6.10 [facility] Comment on above: Performed By: #### C BC #### [facility] [address] [place] [address] Dr. Nehemiah Vargas WBC 7.9 103/ul Normal 4.0-11.0 [facility] Comment on above: Performed By: #### C BC #### [facility] [address] [place] [address] Dr. Nehemiah Vargas PROF 14(COMP METB)on 023 Albumin [Mass/Vol] 3.9 g/dL Normal 3.4-5.0 [facility] Comment on above: Performed By: #### C MP #### [facility] [address] [place] [address] Dr. Nehemiah Vargas Albumin/Globulin [Mass ratio] 1.2 {ratio} Normal [facility] Comment on above: Performed By: #### C MP #### [facility] [address] [place] [address] Dr. Nehemiah Vargas ALP [Catalytic activity/Vol] 118 U/L Critically high 46-116 [facility] Comment on above: Performed By: #### C MP #### [facility] [address] [place] [address] Dr. Nheemiah Vargas ALT [Catalytic activity/Vol] 25 U/L Normal 16-63 [facility] Comment on above: Performed By: #### C MP #### [facility] [address] [place] [address] Dr. Nehemiah Vargas Anion gap [Moles/Vol] 11.7 mmol/L Normal [facility] Comment on above: Performed By: #### C MP #### [facility] [address] [place] [address] Dr. Nehemiah Vargas AST [Catalytic activity/Vol] 24 U/L Normal 15-37 [facility] Comment on above: Performed By: #### C MP #### [facility] [address] [place] [address] Dr. Nehemiah Vargas Bilirubin [Mass/Vol] 0.5 mg/dL Normal 0.2-1.0 [facility] Comment on above: Performed By: #### C MP #### [facility] [address] [place] [address] Dr. Nehemiah Vargas Calcium [Mass/Vol] 8.8 mg/dL Normal 8.5-10.1 [facility] Comment on above: Performed By: #### C MP #### [facility] [address] [place] [address] [address] Nehemiah Vargas Chloride [Moles/Vol] 101 mmol/L Normal 98-107 [facility] Comment on above: Performed By: #### C MP #### [facility] [address] [place] [address] Dr. Nehemiah Vargas CO2 [Moles/Vol] 30.4 mmol/L Normal 21.0-32.0 [facility] Comment on above: Performed By: #### C MP #### [facility] [address] [place] [address] Dr. Nehemiah Vargas Creatinine [Mass/Vol] 0.86 mg/dL Normal 0.70-1.30 [facility] Comment on above: Performed By: #### C MP #### [facility] [address] [place] [address] Dr. Nehemiah Vargas EGFR-AF SAMMARINESE >60 Normal >=60 [facility] Comment on above: Performed By: #### C MP #### [facility] [address] [place] [address] Dr. Nehemiah Vargas EGFR-NON AF SAMMARINESE >60 Normal >=60 [facility] Comment on above: Performed By: #### C MP #### [facility] [address] [place] [address] [address] Nehemiah Vargas Globulin (S) [Mass/Vol] 3.2 g/dL Normal [facility] Comment on above: Performed By: #### C MP #### [facility] [address] [place] [address] [address] Nehemiah Vargas Glucose [Mass/Vol] 116 mg/dL Critically high 74-106 [facility] Comment on above: Performed By: #### C MP #### [facility] [address] [place] [address] [address] Nehemiah Vargas Potassium [Moles/Vol] 4.1 mmol/L Normal 3.5-5.1 [facility] Comment on above: Performed By: #### C MP #### [facility] [address] [place] [address] [address] Nehemiah Vargas Protein [Mass/Vol] 7.1 g/dL Normal 6.4-8.2 [facility] Comment on above: Performed By: #### C MP #### [facility] [address] [place] [address] [address] Nehemiah Vargas Sodium [Moles/Vol] 139 mmol/L Normal 136-145 [facility] Comment on above: Performed By: #### C MP #### [facility] [address] [place] [address] [address] Nehemiah Vargas Urea nitrogen [Mass/Vol] 10.0 mg/dL Normal 7.0-18.0 [facility] Comment on above: Performed By: #### C MP #### [facility] [address] [place] [address] [address] Nehemiah Vargas Urea nitrogen/Creatinin e [Mass ratio] 11.6 mg/mg Normal [facility] Comment on above: Performed By: #### C MP #### [facility] [address] [place] [address] [address] Nehemiah Vargas VIT D 25-OH LABCORPon 2021 Vitamin D, 25-Hydroxy 42.1 ng/mL Normal 30.0-100.0 [facility] Comment on above: Result Comment: Bria min D deficiency has been defined by the [place] of [employer] and an Endocrine Society practice guideline as a level of serum 25-OH vitamin D less than 20 ng/mL (1,2). The Endocrine Society went on to further define vitamin D insufficiency as a level between 21 and 29 ng/mL (2). 1. IOM ([place] of [employer]). 2010. Dietary reference intakes for calcium and D. [place]añ[place]: The National Academies Press. 2. Deana MF, Eddie NC, Migel AMADOR, et al. Evaluation, treatment, and prevention of vitamin D deficiency: an Endocrine Society clinical practice guideline. JCEM. 2010; 96(7):1911-30. Performed By: #### V ITADLC #### [facility] [address] [place] [address] Dr. Nehemiah Vargas FREE T3on 04-08-2022 FREE T3 1.59 pg/mlL Critically low 2.18-3.98 [facility] Comment on above: Performed By: #### C BC #### [facility] [address] [place] [address] [address] Nehemiah Vargas FREE T4on 04-08-2022 Free T4 [Mass/Vol] 0.78 ng/dL Normal 0.76-1.46 [facility] Comment on above: Performed By: #### C BC #### [facility] [address] [place] [address] Dr. Nehemiah Vargas TSHon 04-08-2022 TSH 0.219 uIU/mL Critically low 0.358-3.740 [facility] Comment on above: Performed By: #### C BC #### [facility] [address] [place] [address] Dr. Nehemiah Vargas PROLACTINon 01-23-2022 Prolactin 107.0 ng/mL Critically high 4.0-15.2 [facility] Comment on above: Performed By: #### C BC #### [facility] [address] [place] [address] Dr. Nehemiah Vargas CARDIAC HEIDI ADMITon 022 CK [Catalytic activity/Vol] 108 U/L Normal 39-308 [facility] Comment on above: Performed By: #### C BC #### [facility] [address] [place] [address] Dr. Nehemiah Vargas CK.MB [Mass/Vol] 3.01 ng/mL Normal <=3.60 [facility] Comment on above: Performed By: #### C BC #### [facility] [address] [place] [address] Dr. Nehemiah Vargas HSTROP 4.0 pg/mL Normal 4.0-76.1 [facility] Comment on above: Result Comment: CUT- OFF POINTS HAVE BEEN ESTABLISHED BASED ON THE FOURTH UNIVERSAL DEFINITIONS OF MYOCARDIAL INFARCTION. THE UPPER REFERENCE LIMIT (URL) OF TROPONIN, DEFINED THE 99TH PERCENTILE OF cTnI DISTRIBUTION IN A REFERENCE POPULATION, HAS BEEN CONFIRMED THE DECISION THRESHOLD FOR TX DIAGNOSIS. Performed By: #### C BC #### [facility] [address] [place] [address] Dr. Nehemiah Vargas RICARDO 33 ng/mL Normal 16-96 [facility] Comment on above: Performed By: #### C BC #### [facility] [address] [place] [address] Dr. Nehemiah Vargas CBC AUTO DIFFon 01-22-2022 BASO # 0.0 103/ul Normal 0.0-0.1 [facility] Comment on above: Performed By: #### C BC #### [facility] [address] [place] [address] Dr. Nehemiah Vargas Basophils/100 WBC (Bld) 0.5 % Normal 0.2-2.0 [facility] Comment on above: Performed By: #### C BC #### [facility] [address] [place] [address] Dr. Nehemiah Vargas EO # 0.0 103/ul Normal 0.0-0.7 [facility] Comment on above: Performed By: #### C BC #### [facility] [address] [place] [address] Dr. Nehemiah Vargas Eosinophils/100 WBC (Bld) 0.3 % Critically low 0.9-7.0 [facility] Comment on above: Performed By: #### C BC #### [facility] [address] [place] [address] Dr. Nehemiah Vargas Erythrocyte distribution width (RBC) [Ratio] 12.4 % Normal 11.0-15.0 [facility] Comment on above: Performed By: #### C BC #### [facility] [address] [place] [address] Dr. Nehemiah Vargas Hematocrit (Bld) [Volume fraction] 43.1 % Normal 42.0-54.0 [facility] Comment on above: Performed By: #### C BC #### [facility] [address] [place] [address] Dr. Nehemiah Vargas Hemoglobin (Bld) [Mass/Vol] 14.6 g/dL Normal 14.0-18.0 [facility] Comment on above: Performed By: #### C BC #### [facility] [address] [place] [address] Dr. Nehemiah Vargas IG # 0.02 10e3/ul Normal 0.00-0.03 [facility] Comment on above: Performed By: #### C BC #### [facility] [address] [place] [address] Dr. Nehemiah Vargas IG % 0.3 % Normal 0.0-0.5 [facility] Comment on above: Performed By: #### C BC #### [facility] [address] [place] [address] Dr. Nehemiah Vargas LYMPH # 0.9 103/ul Critically low 1.2-3.8 [facility] Comment on above: Performed By: #### C BC #### [facility] [address] [place] [address] Dr. Nehemiah Vargas Lymphocytes/100 WBC (Bld) 13.1 % Critically low 20.5-60.0 [facility] Comment on above: Performed By: #### C BC #### [facility] [address] [place] [address] Dr. Nehemiah Vargas MANUAL DIFF REQ NO Normal [facility] Comment on above: Performed By: #### C BC #### [facility] [address] [place] [address] Dr. Nehemiah Vargas MCH (RBC) [Entitic mass] 30.0 pg Normal 25.9-34.0 [facility] Comment on above: Performed By: #### C BC #### [facility] [address] [place] [address] Dr. Nehemiah Vargas MCHC (RBC) [Mass/Vol] 33.9 g/dL Normal 29.9-35.2 [facility] Comment on above: Performed By: #### C BC #### [facility] [address] [place] [address] Dr. Nehemiah Vargas MCV (RBC) [Entitic vol] 88.7 fL Normal 80.0-94.0 [facility] Comment on above: Performed By: #### C BC #### [facility] [address] [place] [address] Dr. Nehemiah Vargas MONO # 0.4 103/ul Normal 0.3-0.8 [facility] Comment on above: Performed By: #### C BC #### [facility] [address] [address] [address] Nehemiah Vargas Monocytes/100 WBC (Bld) 5.3 % Normal 1.7-12.0 [facility] Comment on above: Performed By: #### C BC #### [facility] [address] [address] [address] Nehemiah Vargas NEUT # 5.4 103/ul Normal 1.4-6.5 [facility] Comment on above: Performed By: #### C BC #### [facility] [address] [place] [address] Dr. Nehemiah Vargas Neutrophils/100 WBC (Bld) 80.5 % Critically high 43.0-75.0 [facility] Comment on above: Performed By: #### C BC #### [facility] [address] [place] [address] Dr. Nehemiah Vargas Platelet mean volume (Bld) [Entitic vol] 9.1 fL Critically low 9.5-13.5 [facility] Comment on above: Performed By: #### C BC #### [facility] [address] [place] [address] Dr. Nehemiah Vargas PLT 198 103/ul Normal 150-450 [facility] [facility] Comment on above: Performed By: #### C BC #### [facility] [address] [place] [address] Dr. Nehemiah Vargas RBC 4.86 106/ul Normal 4.70-6.10 [facility] Comment on above: Performed By: #### C BC #### [facility] [address] [place] [address] Dr. Nehemiah Vargas WBC 6.7 103/ul Normal 4.0-11.0 [facility] Comment on above: Performed By: #### C BC #### [facility] [address] [place] [address] HEAD WO CONon [...] by: IZZY CHAMPAGNE Date: 2022-01-22 12:00 Normal [facility] LACTATE/LACTIC ACIDon 2021 Lactate [Moles/Vol] 1.2 mmol/L Normal 0.4-1.9 [facility] Comment on above: Performed By: #### L ACT #### [facility] [address] [place] [address] Dr. Nehemiah Vargas LIPASEon 01-22-2022 Lipase [Catalytic activity/Vol] 95.0 U/L Normal 73.0-393.0 [facility] Comment on above: Performed By: #### C BC #### [facility] [address] [place] [address] Dr. Nehemiah Vargas PH VENOUS BLOODon 01-22-2022 PCO2 VENOUS 51.9 mmHg Normal 40.0-52.0 [facility] Comment on above: Performed By: #### C BC #### [facility] [address] [place] [address] Dr. Nehemiah Vargas pH VENOUS 7.301 Critically low 7.330-7.430 [facility] Comment on above: Performed By: #### C BC #### [facility] [address] [place] [address] Dr. Nehemiah Vargas PROF 14(COMP METB)on 022 Albumin [Mass/Vol] 3.7 g/dL Normal 3.4-5.0 [facility] Comment on above: Performed By: #### C BC #### [facility] [address] [address] [address] Nehemiah Vargas Albumin/Globulin [Mass ratio] 1.2 {ratio} Normal [facility] Comment on above: Performed By: #### C BC #### [facility] [address] [place] [address] Dr. Nehemiah Vargas ALP [Catalytic activity/Vol] 97 U/L Normal 46-116 [facility] Comment on above: Performed By: #### C BC #### [facility] [address] [place] [address] Dr. Nehemiah Vargas ALT [Catalytic activity/Vol] 26 U/L Normal 16-63 [facility] Comment on above: Performed By: #### C BC #### [facility] [address] [place] [address] Dr. Nehemiah Vargas Anion gap [Moles/Vol] 11.1 mmol/L Normal [facility] Comment on above: Performed By: #### C BC #### [facility] [address] [place] [address] Dr. Nehemiah Vargas AST [Catalytic activity/Vol] 20 U/L Normal 15-37 [facility] Comment on above: Performed By: #### C BC #### [facility] [address] [place] [address] Dr. Nehemiah Vargas Bilirubin [Mass/Vol] 0.4 mg/dL Normal 0.2-1.0 [facility] Comment on above: Performed By: #### C BC #### [facility] [address] [place] [address] Dr. Nehemiah Vargas Calcium [Mass/Vol] 8.4 mg/dL Critically low 8.5-10.1 [facility] Comment on above: Performed By: #### C BC #### [facility] [address] [place] [address] Dr. Nehemiah Vargas Chloride [Moles/Vol] 96 mmol/L Critically low 98-107 [facility] Comment on above: Performed By: #### C BC #### [facility] [address] [address] [address] Nehemiah Vargas CO2 [Moles/Vol] 28.1 mmol/L Normal 21.0-32.0 [facility] Comment on above: Performed By: #### C BC #### [facility] [address] [address] [address] Nehemiah Vargas Creatinine [Mass/Vol] 0.85 mg/dL Normal 0.70-1.30 [facility] Comment on above: Performed By: #### C BC #### [facility] [address] [address] [address] Nehemiah Vargas EGFR-AF SAMMARINESE >60 Normal >=60 [facility] Comment on above: Performed By: #### C BC #### [facility] [address] [place] [address] Dr. Nehemiah Vargas EGFR-NON AF SAMMARINESE >60 Normal >=60 [facility] Comment on above: Performed By: #### C BC #### [facility] [address] [address] [address] Nehemiah Vargas Globulin (S) [Mass/Vol] 3.1 g/dL Normal [facility] Comment on above: Performed By: #### C BC #### [facility] [address] [place] [address] Dr. Nehemiah Vargas Glucose [Mass/Vol] 138 mg/dL Critically high 74-106 [facility] Comment on above: Performed By: #### C BC #### [facility] [address] [place] [address] Dr. Nehemiah Vargas Potassium [Moles/Vol] 4.2 mmol/L Normal 3.5-5.1 [facility] Comment on above: Performed By: #### C BC #### [facility] [address] [place] [address] Dr. Nehemiah Vargas Protein [Mass/Vol] 6.8 g/dL Normal 6.4-8.2 [facility] Comment on above: Performed By: #### C BC #### [facility] [address] [place] [address] Dr. Nehemiah Vargas Sodium [Moles/Vol] 131 mmol/L Critically low 136-145 [facility] Comment on above: Performed By: #### C BC #### [facility] [address] [address] [address] Nehemiah Vargas Urea nitrogen [Mass/Vol] 7.0 mg/dL Normal 7.0-18.0 [facility] Comment on above: Performed By: #### C BC #### [facility] [address] [address] [address] Nehemiah Vargas Urea nitrogen/Creatinin e [Mass ratio] 8.2 mg/mg Normal [facility] Comment on above: Performed By: #### C BC #### [facility] [address] [place] [address] Dr. Nehemiah Vargas TSHon 01-22-2022 TSH 1.003 uIU/mL Normal 0.358-3.740 [facility] Comment on above: Performed By: #### C BC #### [facility] [address] [address] [address] Nehemiah Vargas TSH RANGE SEE BELOW Normal [facility] Comment on above: Result Comment: <0.3 4 UIU/ml HYPERTHYROID 0.34-5.60 UIU/ml EUTHYROID >5.60 UIU/ml HYPOTHYROID Performed By: #### C BC #### [facility] [address] [place] [address] Dr. Nehemiah Vargas XR CHEST 1 Von [...] by: IZZY CHAMPAGNE Date: 2022-01-22 12:01 Normal [facility] CBC AUTO DIFFon 01-19-2022 BASO # 0.0 103/ul Normal 0.0-0.1 [facility] Comment on above: Performed By: #### C BC #### [facility] [address] [place] [address] Dr. Nehemiah Vargas Basophils/100 WBC (Bld) 0.4 % Normal 0.2-2.0 [facility] Comment on above: Performed By: #### C BC #### [facility] [address] [place] [address] Dr. Nehemiah Vargas EO # 0.1 103/ul Normal 0.0-0.7 [facility] Comment on above: Performed By: #### C BC #### [facility] [address] [place] [address] Dr. Nehemiah Vargas Eosinophils/100 WBC (Bld) 1.3 % Normal 0.9-7.0 [facility] Comment on above: Performed By: #### C BC #### [facility] [address] [place] [address] Dr. Nehemiah Vargas Erythrocyte distribution width (RBC) [Ratio] 12.9 % Normal 11.0-15.0 [facility] Comment on above: Performed By: #### C BC #### [facility] [address] [place] [address] Dr. Nehemiah Vargas Hematocrit (Bld) [Volume fraction] 42.8 % Normal 42.0-54.0 [facility] Comment on above: Performed By: #### C BC #### [facility] [address] [place] [address] Dr. Nehemiah Vargas Hemoglobin (Bld) [Mass/Vol] 13.9 g/dL Critically low 14.0-18.0 [facility] Comment on above: Performed By: #### C BC #### [facility] [address] [place] [address] Dr. Nehemiah Vargas IG # 0.02 10e3/ul Normal 0.00-0.03 [facility] Comment on above: Performed By: #### C BC #### [facility] [address] [place] [address] Dr. Nehemiah Vargas IG % 0.3 % Normal 0.0-0.5 [facility] Comment on above: Performed By: #### C BC #### [facility] [address] [place] [address] Dr. Nehemiah Vragas LYMPH # 1.8 103/ul Normal 1.2-3.8 [facility] Comment on above: Performed By: #### C BC #### [facility] [address] [place] [address] Dr. Nehemiah Vargas Lymphocytes/100 WBC (Bld) 26.5 % Normal 20.5-60.0 [facility] Comment on above: Performed By: #### C BC #### [facility] [address] [place] [address] Dr. Nehemiah Vargas MANUAL DIFF REQ NO Normal [facility] Comment on above: Performed By: #### C BC #### [facility] [address] [place] [address] Dr. Nehemiah Vargas MCH (RBC) [Entitic mass] 29.6 pg Normal 25.9-34.0 [facility] Comment on above: Performed By: #### C BC #### [facility] [address] [place] [address] Dr. Nehemiah Vargas MCHC (RBC) [Mass/Vol] 32.5 g/dL Normal 29.9-35.2 [facility] Comment on above: Performed By: #### C BC #### [facility] [address] [place] [address] Dr. Nehemiah Vargas MCV (RBC) [Entitic vol] 91.1 fL Normal 80.0-94.0 [facility] Comment on above: Performed By: #### C BC #### [facility] [address] [place] [address] Dr. Nehemiah Vargas MONO # 0.5 103/ul Normal 0.3-0.8 [facility] Comment on above: Performed By: #### C BC #### [facility] [address] [place] [address] Dr. Nehemiah Vargas Monocytes/100 WBC (Bld) 6.9 % Normal 1.7-12.0 [facility] Comment on above: Performed By: #### C BC #### [facility] [address] [address] [address] Nehemiah Vargas NEUT # 4.4 103/ul Normal 1.4-6.5 [facility] Comment on above: Performed By: #### C BC #### [facility] [address] [place] [address] Dr. Nehemiah Vargas Neutrophils/100 WBC (Bld) 64.6 % Normal 43.0-75.0 [facility] Comment on above: Performed By: #### C BC #### [facility] [address] [place] [address] Dr. Nehemiah Vargas Platelet mean volume (Bld) [Entitic vol] 10.3 fL Normal 9.5-13.5 [facility] Comment on above: Performed By: #### C BC #### [facility] [address] [place] [address] Dr. Nehemiah Vargas PLT 193 103/ul Normal 150-450 [facility] Comment on above: Performed By: #### C BC #### [facility] [address] [place] [address] Dr. Nehemiah Vargas RBC 4.70 106/ul Normal 4.70-6.10 [facility] Comment on above: Performed By: #### C BC #### [facility] [address] [place] [address] Dr. Nehemiah Vargas WBC 6.8 103/ul Normal 4.0-11.0 [facility] Comment on above: Performed By: #### C BC #### [facility] [address] [place] [address] Dr. Nehemiah Vargas PROF CHEM 8 (BAS METB)on Anion gap [Moles/Vol] 8.7 mmol/L Normal [facility] Comment on above: Performed By: #### C BC #### [facility] [address] [place] [address] Dr. Nehemiah Vargas Calcium [Mass/Vol] 8.6 mg/dL Normal 8.5-10.1 [facility] Comment on above: Performed By: #### C BC #### [facility] [address] [address] [address] Nehemiah Vargas Chloride [Moles/Vol] 100 mmol/L Normal 98-107 [facility] Comment on above: Performed By: #### C BC #### [facility] [address] [address] [address] Nehemiah Vargas CO2 [Moles/Vol] 29.8 mmol/L Normal 21.0-32.0 [facility] Comment on above: Performed By: #### C BC #### [facility] [address] [address] [address] Nehemiah Vargas Creatinine [Mass/Vol] 0.88 mg/dL Normal 0.70-1.30 [facility] Comment on above: Performed By: #### C BC #### [facility] [address] [place] [address] Dr. Nehemiah Vargas EGFR-AF SAMMARINESE >60 Normal >=60 [facility] Comment on above: Performed By: #### C BC #### [facility] [address] [address] [address] Nehemiah Vargas EGFR-NON AF SAMMARINESE >60 Normal >=60 [facility] Comment on above: Performed By: #### C BC #### [facility] [address] [address] [address] Nehemiah Vargas Glucose [Mass/Vol] 107 mg/dL Critically high 74-106 [facility] Comment on above: Performed By: #### C BC #### [facility] [address] [place] [address] Dr. Nehemiah Vargas Potassium [Moles/Vol] 4.5 mmol/L Normal 3.5-5.1 [facility] Comment on above: Performed By: #### C BC #### [facility] [address] [place] [address] Dr. Nehemiah Vargas Sodium [Moles/Vol] 134 mmol/L Critically low 136-145 [facility] Comment on above: Performed By: #### C BC #### [facility] [address] [address] [address] Nehemiah Vargas Urea nitrogen [Mass/Vol] 9.0 mg/dL Normal 7.0-18.0 [facility] Comment on above: Performed By: #### C BC #### [facility] [address] [place] [address] Dr. Nehemiah Vargas Urea nitrogen/Creatinin e [Mass ratio] 10.2 mg/mg Normal [facility] Comment on above: Performed By: #### C BC #### [facility] [address] [address] [address] Nehemiah Vargas TSHon 01-19-2022 TSH 0.322 uIU/mL Critically low 0.358-3.740 [facility] Comment on above: Performed By: #### C BC #### [facility] [address] [place] [address] Dr. Nehemiah Vargas TSH RANGE SEE BELOW Normal [facility] Comment on above: Result Comment: <0.3 4 UIU/ml HYPERTHYROID 0.34-5.60 UIU/ml EUTHYROID >5.60 UIU/ml HYPOTHYROID Performed By: #### C BC #### [facility] [address] [place] [address] Dr. Nehemiah Vargas CARDIAC HEIDI ADMITon 022 CK [Catalytic activity/Vol] 124 U/L Normal 39-308 [facility] Comment on above: Performed By: #### C MADM, CMP, ETH #### [facility] [address] [place] [address] Dr. Nehemiah Vargas CK.MB [Mass/Vol] 3.55 ng/mL Normal <=3.60 [facility] Comment on above: Performed By: #### C MADM, CMP, ETH #### [facility] [address] [place] [address] Dr. Nehemiah Vargas HSTROP 5.7 pg/mL Normal 4.0-76.1 [facility] Comment on above: Result Comment: CUT- OFF POINTS HAVE BEEN ESTABLISHED BASED ON THE FOURTH UNIVERSAL DEFINITIONS OF MYOCARDIAL INFARCTION. THE UPPER REFERENCE LIMIT (URL) OF TROPONIN, DEFINED THE 99TH PERCENTILE OF cTnI DISTRIBUTION IN A REFERENCE POPULATION, HAS BEEN CONFIRMED THE DECISION THRESHOLD FOR TX DIAGNOSIS. Performed By: #### C MADM, CMP, ETH #### [facility] [address] [place] [address] Dr. Nehemiah Vargas RICARDO 62 ng/mL Normal 16-96 [facility] Comment on above: Performed By: #### C MADM, CMP, ETH #### [facility] [address] [place] [address] Dr. Nehemiah Vargas CBC AUTO DIFFon 01-18-2022 BASO # 0.0 103/ul Normal 0.0-0.1 [facility] Comment on above: Performed By: #### C BC #### [facility] [address] [place] [address] Dr. Nehemiah Vargas Basophils/100 WBC (Bld) 0.4 % Normal 0.2-2.0 [facility] Comment on above: Performed By: #### C BC #### [facility] [address] [place] [address] Dr. Nehemiah Vargas EO # 0.1 103/ul Normal 0.0-0.7 [facility] Comment on above: Performed By: #### C BC #### [facility] [address] [place] [address] Dr. Nehemiah Vargas Eosinophils/100 WBC (Bld) 0.8 % Critically low 0.9-7.0 [facility] Comment on above: Performed By: #### C BC #### [facility] [address] [place] [address] Dr. Nehemiah Vargas Erythrocyte distribution width (RBC) [Ratio] 12.5 % Normal 11.0-15.0 [facility] Comment on above: Performed By: #### C BC #### [facility] [address] [place] [address] Dr. Nehemiah Vargas Hematocrit (Bld) [Volume fraction] 43.9 % Normal 42.0-54.0 [facility] Comment on above: Performed By: #### C BC #### [facility] [address] [place] [address] Dr. Nehemiah Vargas Hemoglobin (Bld) [Mass/Vol] 14.3 g/dL Normal 14.0-18.0 [facility] Comment on above: Performed By: #### C BC #### [facility] [address] [place] [address] Dr. Nehemiah Vargas IG # 0.03 10e3/ul Normal 0.00-0.03 [facility] Comment on above: Performed By: #### C BC #### [facility] [address] [place] [address] Dr. Nehemiah Vargas IG % 0.3 % Normal 0.0-0.5 [facility] Comment on above: Performed By: #### C BC #### [facility] [address] [place] [address] Dr. Nehemiah Vargas LYMPH # 0.9 103/ul Critically low 1.2-3.8 [facility] Comment on above: Performed By: #### C BC #### [facility] [address] [place] [address] Dr. Nehemiah Vargas Lymphocytes/100 WBC (Bld) 9.4 % Critically low 20.5-60.0 [facility] Comment on above: Performed By: #### C BC #### [facility] [address] [place] [address] Dr. Nehemiah Vargas MANUAL DIFF REQ NO Normal [facility] Comment on above: Performed By: #### C BC #### [facility] [address] [place] [address] Dr. Nehemiah Vargas MCH (RBC) [Entitic mass] 29.9 pg Normal 25.9-34.0 [facility] Comment on above: Performed By: #### C BC #### [facility] [address] [place] [address] Dr. Nehemiah Vargas MCHC (RBC) [Mass/Vol] 32.6 g/dL Normal 29.9-35.2 [facility] Comment on above: Performed By: #### C BC #### [facility] [address] [place] [address] Dr. Nehemiah Vargas MCV (RBC) [Entitic vol] 91.6 fL Normal 80.0-94.0 [facility] Comment on above: Performed By: #### C BC #### [facility] [address] [address] [address] Nehemiah Vargas MONO # 0.5 103/ul Normal 0.3-0.8 [facility] Comment on above: Performed By: #### C BC #### [facility] [address] [address] [address] Nehemiah Vargas Monocytes/100 WBC (Bld) 5.5 % Normal 1.7-12.0 [facility] Comment on above: Performed By: #### C BC #### [facility] [address] [address] [address] Nehemiah Vargas NEUT # 7.6 103/ul Critically high 1.4-6.5 [facility] Comment on above: Performed By: #### C BC #### [facility] [address] [place] [address] Dr. Nehemiah Vargas Neutrophils/100 WBC (Bld) 83.6 % Critically high 43.0-75.0 [facility] Comment on above: Performed By: #### C BC #### [facility] [address] [place] [address] Dr. Nehemiah Vargas Platelet mean volume (Bld) [Entitic vol] 9.1 fL Critically low 9.5-13.5 [facility] Comment on above: Performed By: #### C BC #### [facility] [address] [place] [address] Dr. Nehemiah Vargas PLT 169 103/ul Normal 150-450 [facility] Comment on above: Performed By: #### C BC #### [facility] [address] [place] [address] Dr. Nehemiah Vargas RBC 4.79 106/ul Normal 4.70-6.10 [facility] Comment on above: Performed By: #### C BC #### [facility] [address] [place] [address] Dr. Nehemiah Vargas WBC 9.1 103/ul Normal 4.0-11.0 [facility] Comment on above: Performed By: #### C BC #### [facility] [address] [place] [address] Dr. Nehemiah Vargas DRUG SCREEN RAPID (URINE)on 01-18-2022 AMP Negative Normal NEGATIVE [facility] Comment on above: Performed By: #### C BC #### [facility] [address] [address] [address] Nehemiah Vargas BAR Negative Normal NEGATIVE [facility] Comment on above: Performed By: #### C BC #### [facility] [address] [address] [address] Nehemiah Vargas BUP Negative Normal NEGATIVE [facility] Comment on above: Performed By: #### C BC #### [facility] [address] [place] [address] Dr. Nehemiah Vargas BZO Positive Abnormal NEGATIVE [facility] Comment on above: Performed By: #### C BC #### [facility] [address] [place] [address] Dr. Nehemiah Vargas JILLIAN Negative Normal NEGATIVE [facility] Comment on above: Performed By: #### C BC #### [facility] [address] [place], [place] [address] Dr. Nehemiah Vargas CUT-OFFS SEE BELOW Normal [facility] Comment on above: Result Comment: [...] By: #### C BC #### [facility] [address] [place] [address] Dr. Nehemiah Vargas DRUG CUT HEADER DRUG CLASS TEST SYSTEM CUT-OFF CONCENTRATIONS ARE FOLLOWS: Normal [facility] Comment on above: Performed By: #### C BC #### [facility] [address] [place] [address] Dr. Nehemiah Vargas mAMP Negative Normal NEGATIVE [facility] Comment on above: Performed By: #### C BC #### [facility] [address] [place] [address] Dr. Nehemiah Vargas MTD Negative Normal NEGATIVE [facility] Comment on above: Performed By: #### C BC #### [facility] [address] [place] [address] Dr. Nehemiah Vargas OPI Negative Normal NEGATIVE [facility] Comment on above: Performed By: #### C BC #### [facility] [address] [place] [address] Dr. Nehemiah Vargas OXY Negative Normal NEGATIVE [facility] Comment on above: Performed By: #### C BC #### [facility] [address] [place] [address] Dr. Nehemiah Vargas PCP Negative Normal NEGATIVE [facility] Comment on above: Performed By: #### C BC #### [facility] [address] [place] [address] Dr. Nehemiah Vargas PPX Negative Normal NEGATIVE [facility] Comment on above: Performed By: #### C BC #### [facility] [address] [place] [address] Dr. Nehemiah Vargas TCA Positive Abnormal NEGATIVE [facility] Comment on above: Performed By: #### C BC #### [facility] [address] [place] [address] Dr. Nehemiah Vargas THC Positive Abnormal NEGATIVE [facility] Comment on above: Performed By: #### C BC #### [facility] [address] [place] [address] Dr. Nehemiah Vargas ER URINE PROFILEon 2 Bilirubin Ql (U) Negative Normal NEGATIVE [facility] Comment on above: Performed By: #### C BC #### [facility] [address] [place] [address] Dr. Nehemiah Vargas Clarity (U) CLEAR Normal CLEAR [facility] Comment on above: Performed By: #### C BC #### [facility] [address] [place] [address] Dr. Nehemiah Vargas Color (U) YELLOW Normal YELLOW [facility] Comment on above: Performed By: #### C BC #### [facility] [address] [place] [address] Dr. Nehemiah SANTO A micrscopic examination will be performed if indicated. Normal [facility] Comment on above: Performed By: #### C BC #### [facility] [address] [place] [address] Dr. Nehemiah Vargas Glucose Ql (U) Negative Normal NEGATIVE [facility] Comment on above: Performed By: #### C BC #### [facility] [address] [place] [address] Dr. Nehemiah Vargas Hemoglobin Ql (U) Negative Normal NEGATIVE [facility] Comment on above: Performed By: #### C BC #### [facility] [address] [place] [address] Dr. Nehemiah Vargas Ketones Ql (U) Negative Normal NEGATIVE [facility] Comment on above: Performed By: #### C BC #### [facility] [address] [place] [address] Dr. Nehemiah Vargas LEUKOCYTES Negative Normal NEGATIVE [facility] Comment on above: Performed By: #### C BC #### [facility] [address] [place] [address] Dr. Nehemiah Vargas Nitrite Ql (U) Negative Normal NEGATIVE [facility] Comment on above: Performed By: #### C BC #### [facility] [address] [place] [address] Dr. Nehemiah Vargas pH (U) 6.0 [pH] Normal 5-9 [facility] Comment on above: Performed By: #### C BC #### [facility] [address] [place] [address] Dr. Nehemiah Vargas Protein (U) [Mass/Vol] 30 mg/dL Abnormal NEGATIVE/ TRACE [facility] Comment on above: Performed By: #### C BC #### [facility] [address] [place] [address] Dr. Nehemiah Vargas SPEC GRAVITY >=1.030 Abnormal 1.005-<=1.025 [facility] Comment on above: Performed By: #### C BC #### [facility] [address] [place] [address] Dr. Nehemiah Vargas UR MICRO IND INDICATED Normal [facility] Comment on above: Performed By: #### C BC #### [facility] [address] [place] [address] Dr. Nehemiah Vargas Urobilinogen Qn (U) 0.2 {Stevenson'U}/dL Normal 0.2 - 1.0 [facility] Comment on above: Performed By: #### C BC #### [facility] [address] [place] [address] Dr. Nehemiah Vargas ETHANOL (BLD ALC)on 01-19-20 22 ALC NOTE NOTE: 80 mg/dl is th e legal limit for a blood alcohol level Normal [facility] Comment on above: Performed By: #### C SADIE VALLEJO, ETH #### [facility] [address] [place] [address] Dr. Nehemiah Vargas Ethanol [Mass/Vol] mg/dL Normal [facility] Comment on above: Performed By: #### C SADIE VALLEJO, ETH #### [facility] [address] [place] [address] Dr. Nehemiah Vargas PROF 14(COMP METB)on 022 Albumin [Mass/Vol] 3.5 g/dL Normal 3.4-5.0 [facility] Comment on above: Performed By: #### C SADIE VALLEJO, ETH #### [facility] [address] [place] [address] Dr. Nehemiah Vargas Albumin/Globulin [Mass ratio] 1.2 {ratio} Normal [facility] Comment on above: Performed By: #### C SADIE VALLEJO, ETH #### [facility] [address] [place] [address] Dr. Nehemiah Vargas ALP [Catalytic activity/Vol] 94 U/L Normal 46-116 [facility] Comment on above: Performed By: #### C GENEVIEVE CMP, ETH #### [facility] [address] [address] [address] Nehemiah Vargas ALT [Catalytic activity/Vol] 25 U/L Normal 16-63 [facility] Comment on above: Performed By: #### C MADM, CMP, ETH #### [facility] [address] [address] [address] Nehemiah Vargas Anion gap [Moles/Vol] 10.3 mmol/L Normal [facility] Comment on above: Performed By: #### C MADM, CMP, ETH #### [facility] [address] [address] [address] Nehemiah Vargas AST [Catalytic activity/Vol] 18 U/L Normal 15-37 [facility] Comment on above: Performed By: #### C MADM, CMP, ETH #### [facility] [address] [place] [address] Dr. Nehemiah Vargas Bilirubin [Mass/Vol] 0.3 mg/dL Normal 0.2-1.0 [facility] Comment on above: Performed By: #### C MADM, CMP, ETH #### [facility] [address] [address] [address] Nehemiah Vargas Calcium [Mass/Vol] 8.4 mg/dL Critically low 8.5-10.1 [facility] Comment on above: Performed By: #### C MADM, CMP, ETH #### [facility] [address] [address] [address] Nehemiah Vargas Chloride [Moles/Vol] 98 mmol/L Normal 98-107 [facility] Comment on above: Performed By: #### C MADM, CMP, ETH #### [facility] [address] [address] [address] Nehemiah Vargas CO2 [Moles/Vol] 29.1 mmol/L Normal 21.0-32.0 [facility] Comment on above: Performed By: #### C MADM, CMP, ETH #### [facility] [address] [address] [address] Nehemiah Vargas Creatinine [Mass/Vol] 0.78 mg/dL Normal 0.70-1.30 [facility] Comment on above: Performed By: #### C MADM, CMP, ETH #### [facility] [address] [place] [address] Dr. Nehemiah Vargas EGFR-AF SAMMARINESE >60 Normal >=60 [facility] Comment on above: Performed By: #### C MADM, CMP, ETH #### [facility] [address] [place] [address] Dr. Nehemiah Vargas EGFR-NON AF SAMMARINESE >60 Normal >=60 [facility] Comment on above: Performed By: #### C MADM, CMP, ETH #### [facility] [address] [place] [address] Dr. Nehemiah Vargas Globulin (S) [Mass/Vol] 3.0 g/dL Normal [facility] Comment on above: Performed By: #### C MADM, CMP, ETH #### [facility] [address] [place] [address] Dr. Nehemiah Vargas Glucose [Mass/Vol] 128 mg/dL Critically high 74-106 [facility] Comment on above: Performed By: #### C MADM, CMP, ETH #### [facility] [address] [place] [address] Dr. Nehemiah Vargas Potassium [Moles/Vol] 4.4 mmol/L Normal 3.5-5.1 [facility] Comment on above: Performed By: #### C MADM, CMP, ETH #### [facility] [address] [place] [address] Dr. Nehemiah Vargas Protein [Mass/Vol] 6.5 g/dL Normal 6.4-8.2 [facility] Comment on above: Performed By: #### C MADM, CMP, ETH #### [facility] [address] [place] [address] Dr. Nehemiah Vargas Sodium [Moles/Vol] 133 mmol/L Critically low 136-145 [facility] Comment on above: Performed By: #### C MADM, CMP, ETH #### [facility] [address] [place] [address] Dr. Nehemiah Vargas Urea nitrogen [Mass/Vol] 7.0 mg/dL Normal 7.0-18.0 [facility] Comment on above: Performed By: #### C SADIE VALLEJO, ETH #### [facility] [address] [place] [address] Dr. Nehemiah Vargas Urea nitrogen/Creatinin e [Mass ratio] 9.0 mg/mg Normal [facility] Comment on above: Performed By: #### C SADIE VALLEJO, ETH #### [facility] [address] [place] [address] Dr. Nehemiah Vargas URINE MICROSCOPIC ONLYon BACTERIA NONE SEEN Normal NONE SEEN [facility] Comment on above: Performed By: #### C BC #### [facility] [address] [place] [address] Dr. Nehemiah Vargas Bacteria identified Cx Nom (U) NOT INDICATED Normal [facility] Comment on above: Performed By: #### C BC #### [facility] [address] [place] [address] Dr. Nehemiah Vargas CAST NONE SEEN Normal NONE SEEN [facility] Comment on above: Performed By: #### C BC #### [facility] [address] [place] [address] Dr. Nehemiah Vargas Crystals LM Nom (Urine sed) NONE SEEN Normal NONE SEEN [facility] Comment on above: Performed By: #### C BC #### [facility] [address] [place] [address] Dr. Nehemiah Vargas Epithelial cells LM Ql (Urine sed) NONE SEEN Normal NONE SEEN /RARE [facility] Comment on above: Performed By: #### C BC #### [facility] [address] [place] [address] Dr. Nehemiah Vargas MUCOUS TRACE Abnormal NONE SEEN [facility] Comment on above: Performed By: #### C BC #### [facility] [address] [place] [address] Dr. Nehemiah Vargas RBC NONE SEEN Abnormal 0-2 [facility] Comment on above: Performed By: #### C BC #### [facility] [address] [place] [address] Dr. Nehemiah Vargas WBC 0-2 Abnormal NONE SEEN [facility] Comment on above: Performed By: #### C BC #### [facility] [address] [place] [address] Dr. Nehemiah Vargas CBC AUTO DIFFon 01-08-2022 BASO # 0.0 103/ul Normal 0.0-0.1 [facility] Comment on above: Performed By: #### C BC #### [facility] [address] [place] [address] Dr. Nehemiah Vargas Basophils/100 WBC (Bld) 0.3 % Normal 0.2-2.0 [facility] Comment on above: Performed By: #### C BC #### [facility] [address] [place] [address] Dr. Nehemiah Vargas EO # 0.1 103/ul Normal 0.0-0.7 [facility] Comment on above: Performed By: #### C BC #### [facility] [address] [place] [address] Dr. Nehemiah Vargas Eosinophils/100 WBC (Bld) 1.3 % Normal 0.9-7.0 [facility] Comment on above: Performed By: #### C BC #### [facility] [address] [place] [address] Dr. Nehemiah Vargas Erythrocyte distribution width (RBC) [Ratio] 12.6 % Normal 11.0-15.0 [facility] Comment on above: Performed By: #### C BC #### [facility] [address] [place] [address] Dr. Nehemiah Vargas Hematocrit (Bld) [Volume fraction] 44.9 % Normal 42.0-54.0 [facility] Comment on above: Performed By: #### C BC #### [facility] [address] [place] [address] Dr. Nehemiah Vargas Hemoglobin (Bld) [Mass/Vol] 14.8 g/dL Normal 14.0-18.0 [facility] Comment on above: Performed By: #### C BC #### [facility] [address] [place] [address] Dr. Nheemiah Vargas IG # 0.01 10e3/ul Normal 0.00-0.03 [facility] Comment on above: Performed By: #### C BC #### [facility] [address] [place] [address] Dr. Nehemiah Vargas IG % 0.1 % Normal 0.0-0.5 [facility] Comment on above: Performed By: #### C BC #### [facility] [address] [place] [address] Dr. Nehemiah Vargas LYMPH # 1.7 103/ul Normal 1.2-3.8 [facility] Comment on above: Performed By: #### C BC #### [facility] [address] [place] [address] Dr. Nehemiah Vargas Lymphocytes/100 WBC (Bld) 25.0 % Normal 20.5-60.0 [facility] Comment on above: Performed By: #### C BC #### [facility] [address] [place] [address] Dr. Nehemiah Vargas MANUAL DIFF REQ NO Normal [facility] Comment on above: Performed By: #### C BC #### [facility] [address] [place] [address] Dr. Nehemiah Vargas MCH (RBC) [Entitic mass] 30.1 pg Normal 25.9-34.0 [facility] Comment on above: Performed By: #### C BC #### [facility] [address] [place] [address] Dr. Nehemiah Vargas MCHC (RBC) [Mass/Vol] 33.0 g/dL Normal 29.9-35.2 [facility] Comment on above: Performed By: #### C BC #### [facility] [address] [place] [address] Dr. Nehemiah Vargas MCV (RBC) [Entitic vol] 91.4 fL Normal 80.0-94.0 [facility] Comment on above: Performed By: #### C BC #### [facility] [address] [place] [address] Dr. Nehemiah Vargas MONO # 0.5 103/ul Normal 0.3-0.8 [facility] Comment on above: Performed By: #### C BC #### [facility] [address] [place] [address] Dr. Nehemiah Vargas Monocytes/100 WBC (Bld) 7.5 % Normal 1.7-12.0 [facility] Comment on above: Performed By: #### C BC #### [facility] [address] [place] [address] Dr. Nehemiah Vargas NEUT # 4.6 103/ul Normal 1.4-6.5 [facility] Comment on above: Performed By: #### C BC #### [facility] [address] [place] [address] Dr. Nehemiah Vargas Neutrophils/100 WBC (Bld) 65.8 % Normal 43.0-75.0 [facility] Comment on above: Performed By: #### C BC #### [facility] [address] [place] [address] Dr. Nehemiah Vargas Platelet mean volume (Bld) [Entitic vol] 9.7 fL Normal 9.5-13.5 [facility] Comment on above: Performed By: #### C BC #### [facility] [address] [place] [address] Dr. Nehemiah Vargas PLT 169 103/ul Normal 150-450 [facility] Comment on above: Performed By: #### C BC #### [facility] [address] [place] [address] Dr. Nehemiah Vargas RBC 4.91 106/ul Normal 4.70-6.10 [facility] Comment on above: Performed By: #### C BC #### [facility] [address] [place] [address] Dr. Nehemiah Vargas WBC 6.9 103/ul Normal 4.0-11.0 [facility] Comment on above: Performed By: #### C BC #### [facility] [address] [place] [address] Dr. Nehemiah Vargas PROF CHEM 8 (BAS METB)on Anion gap [Moles/Vol] 14.5 mmol/L Normal [facility] Comment on above: Performed By: #### C BC #### [facility] [address] [place] [address] Dr. Nehemiah Vargas Calcium [Mass/Vol] 8.9 mg/dL Normal 8.5-10.1 [facility] Comment on above: Performed By: #### C BC #### [facility] [address] [place] [address] Dr. Nehemiah Vargas Chloride [Moles/Vol] 98 mmol/L Normal 98-107 [facility] Comment on above: Performed By: #### C BC #### [facility] [address] [place] [address] Dr. Nehemiah Vargas CO2 [Moles/Vol] 24.4 mmol/L Normal 21.0-32.0 [facility] Comment on above: Performed By: #### C BC #### [facility] [address] [place] [address] Dr. Nehemiah Vargas Creatinine [Mass/Vol] 0.88 mg/dL Normal 0.70-1.30 [facility] Comment on above: Performed By: #### C BC #### [facility] [address] [place] [address] Dr. Nehemiah Vargas EGFR-AF SAMMARINESE >60 Normal >=60 [facility] Comment on above: Performed By: #### C BC #### [facility] [address] [place] [address] Dr. Nehemiah Vargas EGFR-NON AF SAMMARINESE >60 Normal >=60 [facility] Comment on above: Performed By: #### C BC #### [facility] [address] [place] [address] Dr. Nehemiah Vargas Glucose [Mass/Vol] 152 mg/dL Critically high 74-106 [facility] Comment on above: Performed By: #### C BC #### [facility] [address] [place] [address] Dr. Nehemiah Vargas Potassium [Moles/Vol] 3.9 mmol/L Normal 3.5-5.1 [facility] Comment on above: Performed By: #### C BC #### [facility] [address] [place] [address] Dr. Nehemiah Vargas Sodium [Moles/Vol] 133 mmol/L Critically low 136-145 Th e [facility] Comment on above: Performed By: #### C BC #### [facility] [address] [place] [address] Dr. Nehemiah Vargas Urea nitrogen [Mass/Vol] 7.0 mg/dL Normal 7.0-18.0 [facility] Comment on above: Performed By: #### C BC #### [facility] [address] [place] [address] Dr. Nehemiah Vargas Urea nitrogen/Creatinin e [Mass ratio] 8.0 mg/mg Normal [facility] Comment on above: Performed By: #### C BC #### [facility] [address] [place] [address] Dr. Nehemiah Vargas CBC AUTO DIFFon 12-15-2021 BASO # 0.1 103/ul Normal 0.0-0.1 [facility] Comment on above: Performed By: #### C BC #### [facility] [address] [place] [address] Dr. Nehemiah Varags Basophils/100 WBC (Bld) 0.5 % Normal 0.2-2.0 [facility] Comment on above: Performed By: #### C BC #### [facility] [address] [place] [address] Dr. Nehemiah Vargas EO # 0.2 103/ul Normal 0.0-0.7 [facility] Comment on above: Performed By: #### C BC #### [facility] [address] [place] [address] Dr. Nehemiah Vargas Eosinophils/100 WBC (Bld) 1.5 % Normal 0.9-7.0 [facility] Comment on above: Performed By: #### C BC #### [facility] [address] [place] [address] Dr. Nehemiah Vargas Erythrocyte distribution width (RBC) [Ratio] 12.9 % Normal 11.0-15.0 [facility] Comment on above: Performed By: #### C BC #### [facility] [address] [place] [address] Dr. Nehemiah Vargas Hematocrit (Bld) [Volume fraction] 47.2 % Normal 42.0-54.0 [facility] Comment on above: Performed By: #### C BC #### [facility] [address] [place] [address] Dr. Nehemiah Vargas Hemoglobin (Bld) [Mass/Vol] 15.6 g/dL Normal 14.0-18.0 [facility] Comment on above: Performed By: #### C BC #### [facility] [address] [place] [address] Dr. Nehemiah Vargas IG # 0.02 10e3/ul Normal 0.00-0.03 [facility] Comment on above: Performed By: #### C BC #### [facility] [address] [place] [address] Dr. Nehemiah Vargas IG % 0.2 % Normal 0.0-0.5 [facility] Comment on above: Performed By: #### C BC #### [facility] [address] [place] [address] Dr. Nehemiah Vargas LYMPH # 1.5 103/ul Normal 1.2-3.8 [facility] Comment on above: Performed By: #### C BC #### [facility] [address] [place] [address] Dr. Nehemiah Vargas Lymphocytes/100 WBC (Bld) 13.4 % Critically low 20.5-60.0 [facility] Comment on above: Performed By: #### C BC #### [facility] [address] [place] [address] Dr. Nehemiah Vargas MANUAL DIFF REQ NO Normal [facility] Comment on above: Performed By: #### C BC #### [facility] [address] [place] [address] Dr. Nehemiah Vargas MCH (RBC) [Entitic mass] 30.2 pg Normal 25.9-34.0 [facility] Comment on above: Performed By: #### C BC #### [facility] [address] [address] [address] Nehemiah Vargas MCHC (RBC) [Mass/Vol] 33.1 g/dL Normal 29.9-35.2 [facility] Comment on above: Performed By: #### C BC #### [facility] [address] [address] [address] Nehemiah Vargas MCV (RBC) [Entitic vol] 91.3 fL Normal 80.0-94.0 [facility] Comment on above: Performed By: #### C BC #### [facility] [address] [address] [address] Nehemiah Vargas MONO # 0.8 103/ul Normal 0.3-0.8 [facility] Comment on above: Performed By: #### C BC #### [facility] [address] [address] [address] Nehemiah Vargas Monocytes/100 WBC (Bld) 7.2 % Normal 1.7-12.0 [facility] Comment on above: Performed By: #### C BC #### [facility] [address] [address] [address] Nehemiah Vargas NEUT # 8.4 103/ul Critically high 1.4-6.5 [facility] Comment on above: Performed By: #### C BC #### [facility] [address] [address] [address] Nehemiah Vargas Neutrophils/100 WBC (Bld) 77.2 % Critically high 43.0-75.0 [facility] Comment on above: Performed By: #### C BC #### [facility] [address] [address] [address] Nehemiah Vargas Platelet mean volume (Bld) [Entitic vol] 9.3 fL Critically low 9.5-13.5 [facility] Comment on above: Performed By: #### C BC #### [facility] [address] [address] [address] Nehemiah Vargas PLT 171 103/ul Normal 150-450 [facility] Comment on above: Performed By: #### C BC #### [facility] [address] [place] [address] Dr. Nehemiah Vargas RBC 5.17 106/ul Normal 4.70-6.10 [facility] Comment on above: Performed By: #### C BC #### [facility] [address] [place] [address] Dr. Nehemiah Vargas WBC 10.9 103/ul Normal 4.0-11.0 [facility] Comment on above: Performed By: #### C BC #### [facility] [address] [place] [address] Dr. Nehemiah Vargas PROF 14(COMP METB)on 022 Albumin [Mass/Vol] 3.6 g/dL Normal 3.4-5.0 [facility] Comment on above: Performed By: #### C BC #### [facility] [address] [place] [address] Dr. Nehemiah Vargas Albumin/Globulin [Mass ratio] 1.2 {ratio} Normal [facility] Comment on above: Performed By: #### C BC #### [facility] [address] [place] [address] Dr. Nehemiah Vargas ALP [Catalytic activity/Vol] 105 U/L Normal 46-116 [facility] Comment on above: Performed By: #### C BC #### [facility] [address] [place] [address] Dr. Nehemiah Vargas ALT [Catalytic activity/Vol] 21 U/L Normal 16-63 [facility] Comment on above: Performed By: #### C BC #### [facility] [address] [place] [address] Dr. Nehemiah Vargas Anion gap [Moles/Vol] 11.4 mmol/L Normal [facility] Comment on above: Performed By: #### C BC #### [facility] [address] [place] [address] Dr. Nehemiah Vargas AST [Catalytic activity/Vol] 18 U/L Normal 15-37 [facility] Comment on above: Performed By: #### C BC #### [facility] [address] [place] [address] Dr. Nehemiah Vargas Bilirubin [Mass/Vol] 0.4 mg/dL Normal 0.2-1.0 [facility] Comment on above: Performed By: #### C BC #### [facility] [address] [place] [address] Dr. Nehemiah Vargas Calcium [Mass/Vol] 8.2 mg/dL Critically low 8.5-10.1 [facility] Comment on above: Performed By: #### C BC #### [facility] [address] [place] [address] Dr. Nehemiah Vargas Chloride [Moles/Vol] 96 mmol/L Critically low 98-107 [facility] Comment on above: Performed By: #### C BC #### [facility] [address] [place] [address] Dr. Nehemiah Vargas CO2 [Moles/Vol] 28.5 mmol/L Normal 21.0-32.0 [facility] Comment on above: Performed By: #### C BC #### [facility] [address] [place] [address] Dr. Nehemiah Vargas Creatinine [Mass/Vol] 0.88 mg/dL Normal 0.70-1.30 [facility] Comment on above: Performed By: #### C BC #### [facility] [address] [place] [address] Dr. Nehemiah Vargas EGFR-AF SAMMARINESE >60 Normal >=60 [facility] Comment on above: Performed By: #### C BC #### [facility] [address] [place] [address] Dr. Nehemiah Vargas EGFR-NON AF SAMMARINESE >60 Normal >=60 [facility] Comment on above: Performed By: #### C BC #### [facility] [address] [place] [address] Dr. Nehemiah Vargas Globulin (S) [Mass/Vol] 3.1 g/dL Normal [facility] Comment on above: Performed By: #### C BC #### [facility] [address] [place] [address] Dr. Nehemiah Vargas Glucose [Mass/Vol] 121 mg/dL Critically high 74-106 [facility] Comment on above: Performed By: #### C BC #### [facility] [address] [place], [place] [address] Dr. Nehemiah Vargas Potassium [Moles/Vol] 3.9 mmol/L Normal 3.5-5.1 [facility] Comment on above: Performed By: #### C BC #### [facility] [address] [place], [place] [address] Dr. Nehemiah Vargas Protein [Mass/Vol] 6.7 g/dL Normal 6.1-8.2 [facility] Comment on above: Performed By: #### C BC #### [facility] [address] [place], [place] [address] Dr. Nehemiah Vargas Sodium [Moles/Vol] 132 mmol/L Critically low 136-145 [facility] Comment on above: Performed By: #### C BC #### [facility] [address] [place], [place] [address] Dr. Nehemiah Vargas Urea nitrogen [Mass/Vol] 8.0 mg/dL Normal 7.0-18.0 [facility] Comment on above: Performed By: #### C BC #### [facility] [address] [place], [place] [address] Dr. Nehemiah Vargas Urea nitrogen/Creatinin e [Mass ratio] 9.1 mg/mg Normal [facility] Comment on above: Performed By: #### C BC #### [facility] [address] [place], [place] [address] Dr. Nehemiah Vargas Vital Signs Date Time Vital Sign Value Performing Clinician Facility 12-13-2023 10:20-040 Body height 190.5 cm MD Shaikh Schuster Work Phone: [facility] 12-13-2023 10:20-040 Body mass index (BMI) [Ratio] 20.3 kg/m2 MD Shaikh Schuster Work Phone: [facility] 12-13-2023 10:20-040 Body weight 73.93 kg MD Shaikh Schuster Work Phone: [facility] 12-01-2023 14:25-0400 Diastolic blood pressure 99 mm[Hg] MD Shaikh Schuster Work Phone: [facility] 12-01-2023 14:25-0400 Heart rate 77 /min MD Shaikh Schuster Work Phone: [facility] 12-01-2023 14:25-0400 Systolic blood pressure 129 mm[Hg] MD Shaikh Schuster Work Phone: [facility] 12-01-2023 09:10-0400 Respiratory rate 18 /min MD Shaikh Schuster Work Phone: [facility] 12-01-2023 09:10-0400 SaO2% (BldA) [Mass fraction] 98 % MD Shaikh Schuster Work Phone: [facility] 06-20-2023 10:10-0400 Body height 190.5 cm MD Shaikh Schuster Work Phone: [facility] 06-20-2023 10:10-0400 Body weight 68.03 kg MD Shaikh Schuster Work Phone: [facility] 12-01-2021 11:20-0400 Body height 185.42 cm Js May Other [facility] Other 12-01-2021 11:20-0400 Body mass index (BMI) [Ratio] 21.77 kg/m2 Js May Other [facility] Other 12-01-2021 11:20-0400 Body weight 74.84 kg Js May Other [facility] Other 10-09-2021 08:25-0500 Body height 190.5 cm MD Shaikh Schuster Work Phone: [facility] 10-09-2021 08:25-0500 Body weight 72.57 kg MD Shaikh Schuster Work Phone: [facility] 06-02-2021 12:20-0400 Body height 185.42 cm Js May Other [facility] Other 06-02-2021 12:20-0400 Body mass index (BMI) [Ratio] 21.77 kg/m2 Js Jane Other [facility] Other 06-02-2021 12:20-0400 Body weight 74.84 kg Js Jane Other [facility] Other 06-02-2021 12:20-0400 Diastolic blood pressure 82 mm[Hg] Js Jane Other [facility] Other 06-02-2021 12:20-0400 Systolic blood pressure 138 mm[Hg] Js May Other [facility] Other Encounters Encounter Date Encounter Type Care Provider Facility Start: 05-09-2024 End: 05-09-2024 ambulatory GANESH ELIZONDO Not Available Start: 04-24-2024 End: 04-24-2024 ambulatory VANDA SUNSHINE Not Available Start: 03-21-2024 End: 03-21-2024 Patient encounter procedure MD Shaikh Schuster Work Phone: [facility] [address] [place] Work Phone: Start: 03-21-2024 End: 03-21-2024 ambulatory MD Shaikh Schuster Work Phone: [facility] Work Phone: Start: 02-27-2024 End: 02-27-2024 ambulatory VANDA SUNSHINE Not Available Start: 12-13-2023 End: 12-13-2023 ambulatory MD Shaikh Schuster Work Phone: [facility] Work Phone: Start: 12-13-2023 End: 12-13-2023 Patient encounter procedure MD Shaikh Schuster Work Phone: [facility] Work Phone: Start: 12-12-2023 End: 12-12-2023 Patient encounter procedure MD Shaikh Schuster Work Phone: [facility] [address] [place] Work Phone: Start: 12-12-2023 End: 12-12-2023 ambulatory MD Shaikh Schuster Work Phone: [facility] Work Phone: Start: 12-07-2023 End: 12-07-2023 ambulatory OBEY OTEROAntoinette Not Available Start: 12-01-2023 Registered Recurring MD Shaikh Schuster Work Phone: [facility] Work Phone: Start: 06-20-2023 End: 06-20-2023 Patient encounter procedure MD Shaikh Schuster Work Phone: [facility] [address] [place] Work Phone: Start: 06-20-2023 End: 06-20-2023 ambulatory MD Shaikh Schuster Work Phone: [facility] Work Phone: Start: 11-29-2022 End: 11-29-2022 ambulatory MD Shaikh Schuster Work Phone: [facility] Work Phone: Start: 11-29-2022 End: 11-29-2022 Patient encounter procedure MD Shaikh Schuster Work Phone: [facility] [address] [place] Work Phone: Start: 09-16-2022 End: 09-17-2022 ambulatory OBEY LOPEZ Facility:[facility] Start: 04-08-2022 End: 04-09-2022 ambulatory FREDDYHarika ALEXANDER Facility:[facility] Start: 02-04-2022 End: 02-06-[address] [...] encounter procedure MD Shaikh Schuster Work Phone: [facility] [address] Start: 12-15-2021 End: 12-16-[address] IZZY VERGARA Facility:[facility] Start: 12-01-2021 End: 12-01-2021 ambulatory Js May Other [facility] [employer] Other Start: 12-01-2021 Office outpatient visit 25 minutes Js May [facility] Start: 11-19-2021 End: 11-19-2021 Patient encounter procedure MD Shaikh Schuster Work Phone: [facility] [address] [place] Start: 10-15-2021 End: 10-16-[address] IZZY VERGARA Facility:[facility] Start: 10-09-2021 End: 10-09-2021 Patient encounter procedure MD Shaikh Schuster Work Phone: [facility] [address] [place] Start: 06-02-2021 Office outpatient visit 15 minutes Js May [facility] Neurosurgery Start: 06-02-2021 Telephone encounter Js May [facility] Neuro[facility] Procedures Date Procedure Procedure Detail [...] Start: 03-21-2024 MR Unspecified body region [facility] Start: 03-21-2024 MRI of head MR head/brain wo/w con [facility] Payers Date Payer Category Payer Medicaid [id number] 1980 Unknown [id number] 2.16.84 [id number] 1980 Unknown [id number] 2.16.84 [id number] 1979 Unknown [id number] 2.16.84 0.1.548427.3.579.2.593 1979 Unknown [id number] 2.16.84 0.1.370681.3.579.2.593 1979 Unknown [id number] 2.16.84 0.1.852966.3.579.2.593 1979 Unknown [id number] 2.16.84 0.1.273326.3.579.2.593 1979 Unknown [id number] 2.16.84 0.1.503449.3.579.2.593 1979 Unknown [id number] 2.16.84 0.1.631047.3.579.2.593 1979 Unknown [id number] 2.16.84 0.1.670441.3.579.2.593 1979 Unknown [id number] 2.16.84 0.1.073057.3.579.2.593 1979 Unknown [id number] 2.16.84 0.1.552420.3.579.2.1259 1979 Unknown [id number] 2.16.84 0.1.929948.3.579.2.1259 1979 Unknown [id number] 2.16.84 0.1.220781.3.579.2.1259 1979 Unknown [id number] 2.16.84 0.1.808166.3.579.2.1259 1959 Unknown [id number] Self-pay Self Pay [id number] Social History Date Type Detail Facility Start: 12-01-2020 Tobacco smoking status IAIS Ex-smoker (finding) [facility] Start: 1980 Sex Assigned At Male F [facility] Sex Assigned At Sex Assigned At Bir th [employer] Other Medical Equipment Procedure Code Equipment Code [...] FDA Start: 11-09-2017 Spinal fusion graft kit [id number] FDA Start: 12-01-2020 Bone-screw internal spinal fixation system, non-sterile [id number] FDA Start: 12-01-2020 Bone-screw internal spinal fixation system, non-sterile [id number] FDA Start: 12-01-2020 Polymeric spinal fusion cage, non-sterile [id number] FDA Start: 12-01-2020 Bone-screw internal spinal fixation system, non-sterile [id number] FDA Start: 12-01-2020 Evaluation note 12-01-2021 Note [...] the active MS that this patient has. [facility] Other Evaluation note 06-02-2021 Note Date & Type Note Facility 06-02-2021 Evaluation note Encounter Date Diagnosis Assessment Notes May, Lumbar radiculopathy (ICD-10 - M54.16) As long as I have known Tavia I do not believe I have seen [...] M51.36) May, Multiple sclerosis (ICD-10 - G35) [facility] Other Evaluation note Note Date & Type Note Facility Evaluation note No assessment information [facility] Work Phone: Evaluation note Note Date & Type Note Facility Evaluation note No Information [facility] Other History general Narrative - Reported Note Date & Type Note Facility History general Narrative - Reported Type Medical History multiple sclerosis Medical History Patient was born with one kidney Medical History degenerative disc disease Medical History anxiety Medical History depression Surgical History lumbar laminectomy Surgical History Chest tube Surgical History nephrectomy Hospitalization History See Above [facility] Other History general Narrative - Reported Note [...] Lumbar fusion-Doctor May Hospitalization History See Above [facility] Other Chief Complaint and Reason for Visit [...] 21, 2024 End: March 21, 2024 Vanda Sunshine PA-C Attending Provider Active Sta rt: March [...] and content) DATE CREATED AUTHOR 09/18/2022 [facility] DATE CREATED AUTHOR AUTHOR'S ORGANIZ ATION 03/24/[address] [facility] DATE CREATED AUTHOR AUTHOR'S ORGANIZ ATION 05/11/2024 [facility] FOR RECORDS PERTAINING TO PATIENTS WHO ARE [...] THE PRIMARY CLINICAL RECORDS. [facility]. provides no warranty or guarantee of the accuracy or completeness of information in this document.
[2024-05-17 14:37] LABS: Basophils Absolute Auto 0.1 10^3/uL (0.0-0.1); Basophils Percent Auto 0.7 % (0.2-2.0); Eosinophils Absolute Auto 0.1 10^3/uL (0.0-0.7); Eosinophils Percent Auto 0.7 % (0.9-7.0); Hematocrit 45.9 % (42.0-54.0); Hemoglobin 15.2 g/dL (14.0-18.0); Immature Granulocytes Abs Auto 0.02 10^3/uL (0.00-0.03); Immature Granulocytes Pct Auto 0.2 % (0.0-0.5); Lymphocytes Absolute Auto 2.7 10^3/uL (1.2-3.8); Lymphocytes Percent Auto 28.6 % (20.5-60.0); Mean Corpuscular HGB Conc 33.1 g/dL (29.9-35.2); Mean Corpuscular Hemoglobin 30.2 pg (25.9-34.0); Mean Corpuscular Volume 91.3 fL (80.0-94.0); Mean Platelet Volume 9.2 fL (9.5-13.5); Monocytes Absolute Auto 0.8 10^3/uL (0.3-0.8); Monocytes Percent Auto 8.7 % (1.7-12.0); Neutrophils Absolute Auto 5.8 10^3/uL (1.4-6.5); Neutrophils Percent Auto 61.1 % (43.0-75.0); Platelet Count 194 10^3/uL (150-450); Red Blood Count 5.03 10^6/uL (4.70-6.10); Red Cell Distribution Width 12.8 % (11.0-15.0); White Blood Count 9.6 10^3/uL (4.0-11.0)
[2024-05-17 15:21] LABS: Alanine Aminotransferase 23 U/L (16-63); Albumin Globulin Ratio 1.2; Albumin Level 3.6 g/dL (3.4-5.0); Alkaline Phosphatase 114 U/L (46-116); Anion Gap 5.4; Aspartate Amino Transferase 16 U/L (15-37); BUN Creatinine Ratio 13.5; Bilirubin Total 0.2 mg/dL (0.2-1.0); Calcium 8.8 mg/dL (8.5-10.1); Carbon Dioxide 34.3 mmol/L (21.0-32.0); Chloride 104 mmol/L (98-107); Estimated GFR (African America >60 (>=60); Estimated GFR (Non-African Ame >60 (>=60); Globulin 2.9 g/dL; Glucose 93 mg/dL (74-106); Potassium 3.7 mmol/L (3.5-5.1); Sodium 140 mmol/L (136-145); Total Protein 6.5 g/dL (6.4-8.2)
== END 2024-05-17 14:17 | disposition home or self-care (01) ==
LOC: LAB 14:17
PROVIDERS: PCP Family Medicine; Visit Provider Physician Assistant
DX: G35 Multiple sclerosis (principal)
CPT/HCPCS: 36415; 80053; 85025

== ENCOUNTER 2024-12-13 07:59 | Outpatient (RCR) | payer OTHER, SELFPAY | END 2025-01-05 13:00 | disposition home or self-care (01) | LOC: PT 07:59 | PROVIDERS: PCP Family Medicine; Visit Provider Neurological Surgery | DX: M54.50 Low back pain, unspecified (principal); Z98.1 Arthrodesis status; M91 Juvenile osteochondrosis of hip and pelvis | CPT/HCPCS: 97110; 97112; 97161 ==

== ENCOUNTER 2025-01-01 14:43 | Outpatient (OUT) | payer OTHER, SELFPAY ==
[2025-01-01 14:59] LABS: Basophils Absolute Auto 0.1 10^3/uL (0.0-0.1); Basophils Percent Auto 0.5 % (0.2-2.0); Eosinophils Absolute Auto 0.1 10^3/uL (0.0-0.7); Eosinophils Percent Auto 1.2 % (0.9-7.0); Hematocrit 46.9 % (42.0-54.0); Hemoglobin 15.4 g/dL (14.0-18.0); Immature Granulocytes Abs Auto 0.04 10^3/uL (0.00-0.03); Immature Granulocytes Pct Auto 0.4 % (0.0-0.5); Lymphocytes Absolute Auto 2.7 10^3/uL (1.2-3.8); Lymphocytes Percent Auto 25.2 % (20.5-60.0); Mean Corpuscular HGB Conc 32.8 g/dL (29.9-35.2); Mean Corpuscular Hemoglobin 30.3 pg (25.9-34.0); Mean Corpuscular Volume 92.1 fL (80.0-94.0); Mean Platelet Volume 8.6 fL (9.5-13.5); Monocytes Absolute Auto 0.9 10^3/uL (0.3-0.8); Monocytes Percent Auto 8.5 % (1.7-12.0); Neutrophils Absolute Auto 6.8 10^3/uL (1.4-6.5); Neutrophils Percent Auto 64.2 % (43.0-75.0); Platelet Count 265 10^3/uL (150-450); Red Blood Count 5.09 10^6/uL (4.70-6.10); Red Cell Distribution Width 12.6 % (11.0-15.0); White Blood Count 10.6 10^3/uL (4.0-11.0)
[2025-01-01 15:28] LABS: Alanine Aminotransferase 26 U/L (16-63); Albumin Globulin Ratio 1.2; Albumin Level 3.7 g/dL (3.4-5.0); Alkaline Phosphatase 116 U/L (46-116); Anion Gap 3.9; Aspartate Amino Transferase 26 U/L (15-37); BUN Creatinine Ratio 9.7; Bilirubin Total 0.4 mg/dL (0.2-1.0); Calcium 9.2 mg/dL (8.5-10.1); Carbon Dioxide 35.1 mmol/L (21.0-32.0); Chloride 103 mmol/L (98-107); Estimated GFR (African America >60 (>=60 mL/min/1.73m^2); Estimated GFR (Non-African Ame >60 (>=60 mL/min/1.73m^2); Globulin 3.1 g/dL; Glucose 86 mg/dL (74-106); Sodium 138 mmol/L (136-145); Total Protein 6.8 g/dL (6.4-8.2)
[2025-01-02 05:07] LABS: Immunoglobulin G, Qn 648 mg/dL (603-1613)
== END 2025-01-01 14:44 | disposition home or self-care (01) ==
LOC: LAB 14:44
PROVIDERS: PCP Family Medicine; Visit Provider Physician Assistant Medical
DX: G35 Multiple sclerosis (principal)
CPT/HCPCS: 36415; 80053; 82784; 85025

== ENCOUNTER 2025-02-07 11:38 | Outpatient (OUT) | payer OTHER, SELFPAY ==
--- OUTSIDE RECORDS SUMMARY | 2025-02-07 11:54 | XMS_ITS | CCD ---
Author Organization [facility] Care Team Providers Care Journalism Instructor Name Role Phone MD Tracey Schuster Primary Care Provider WALDO Lopez Attending Provider [phone] MD Js May Attending Provider WALDO Camarena [...] Primary Care Unavailable SHAHNAZ SALVADOR Consulting Unavailable SALVADOR CHRISTIE Admitting Unavailable [...] Consulting Unavailable FAWWAD, WEBB H Admitting Unavailable [facility] Attending Unavailable ALEXANDER, AHMAD Consulting Unavailable ALEXANDER, AHMAD Admitting Unavailable ALEXANDER, JAYSONMAD Attending Unavailable SHAIKH SCHUSTER Primary Care Unavailable MD Tracey Schuster Primary Care Provider MD Js May Attending Provider MD Jagdish Schusterikh Primary Care Provider WALDO Lopez Attending Provider MD Landen [facility] Primary Care Provider WALDO Lopez Attending Provider WALDO Lopez Referring Provider MD Js May Attending Provider MD Landen Webb Primary Care Provider WALDO Sunshine Attending Provider Obey Ruiz Unavailable Carter Ortega MD Primary Care Provider [phone] David ALTERATION HAND, Clemencia Unavailable [phone] Landen DIETRICH, Webb Primary Care Provider Js May MD Attending Provider David ALTERATION HAND, Clemencia Unavailable OBEY LOPEZ Attending Unavailable VANDA SUNSHINE Attending Unavailable VANDA SUNSHINE Attending Unavailable CLEMENCIA HERNANDEZ Attending UnavailCLEMENCIA Hammond Attending Unavailshahla e OBEY LOPEZ Attending Unavailable Vanda Sunshine Admitting Unavailable Vanda Sunshine Attending Unavailable [facility] Js May Admitting Unavailable Js May Attending [facility] Carter Ortega Primary Care Unavailable Js May Admitting Unavailable Js May Attending Unavailable Allergies Allergy Classification Reported Allergen(s) Allergy Type Date of Onset Reaction(s) Facility (8 sources) NSAIDs Propensity to adverse reactions 04-16-20 20 Contraindicated R/T 1 kidney [facility] (20 sources) Penicillins; Translations: [Penicillins] Propensity to adverse reactions 07-26-19 89 Swelling, GI intolerance [facility] (8 sources) penicillAMINE Drug Allergy 12-01-19 23 Unknown, Unknown Reaction [facility] (8 sources) Anti-Inflammator y Enzyme Drug allergy 12-01-19 23 Unknown, Unknown Reaction [facility] (1 source) Penicillin Drug Allergy N/V Unfold Other Medications Current Medications Medication Drug Class(es) Dates Sig (Normalized) Sig (Original) [id number] 200 actuat albuterol 0.09 mg/actuat metered dose inhaler (20 sources) beta2-Adrenergic Agonist take 2 puff(s) by inhalation every four hours for wheezing albuterol HFA 90 mcg/act inhaler Inhale 2 puffs every 4 (four) hours if needed for wheezing Active busPIRone hydrochloride 10 mg oral tablet (20 sources) Start: 11-29-2024 take 1 tablet by mouth at bedtime busPIRone (Buspar) 10 MG tablet Indications: CHARLES (generalized anxiety disorder) TAKE 1 TABLET (10 MG) BY MOUTH IN THE MORNING AND BEFORE BEDTIME 180 tablet 11/29/2024 Active Start: 10-30-2023 End: 08-18-2024 take 1 tablet by mouth at bedtime busPIRone (Buspar) 10 MG tablet Indications: CHARELS (generalized anxiety disorder) ([facility]) TAKE 1 TABLET (10 MG) BY MOUTH IN THE MORNING AND BEFORE BEDTIME 180 tablet 08/18/2024 Active diazePAM 2 mg oral tablet (1 source) Benzodiazepine Start: 12-11-2024 take 1 tablet by mouth three times daily as needed Diazepam (Valium) 2 mg tablet Active 2 MG PO Three times daily as needed December 11, 2024 12:00am DULoxetine 60 mg delayed release oral capsule (20 sources) Serotonin and Norepinephrine Reuptake Inhibitor Start: 10-04-2017 End: 11-05-2024 take 1 capsule by mouth once daily DULoxetine (Cymbalta) [address] capsule Indications: Lumbar radiculopathy TAKE 1 CAPSULE BY MOUTH EVERY DAY 90 capsule 1 08/18/2024 Active Start: 10-04-2017 take 1 capsule by mo [facility] at bedtime Duloxetine 30 mg capsule,delayed release(DR/EC) Active 30 MG PO Bedtime October 04, 2017 1:00am ergocalciferol 1.25 mg oral capsule (19 sources) Provitamin D2 Compound Start: 04-04-2024 End: 02-07-2025 ergocalciferol (Vitamin D2) 1.25 MG (45456 UT) capsule 04/04/2024 02/07/2025 Discontinued Start: 04-04-2024 take 1 capsule by mo [facility] every week ergocalciferol (Vitamin D2) 1.25 MG (67130 UT) capsule TAKE 1 CAPSULE BY MOUTH ONE TIME PER WEEK 04/04/2024 Active gabapentin 800 mg oral tablet (20 sources) Anti-epileptic Agent Start: 04-03-2024 End: 09-26-2024 take 1 tablet by mouth in the morning, then take 1 tablet by mouth in the evening, then take 1 tablet by mouth at bedtime gabapentin (Neurontin) 800 MG tablet Indications: Cervical radiculopathy Take 1 tablet (800 mg) by mouth in the morning and 1 tablet (800 mg) in the evening and 1 tablet (800 mg) before bedtime. Due 09/15/24. 90 tablet 3 08/27/2024 Active Start: 11-25-2020 Gabapentin 600 mg tablet Active 700 MG PO Three times daily November 25, 2020 4:48pm Start: 11-25-2020 take 700 mg by mouth three times daily Gabapentin Active 700 MG PO Three times daily November 25, 2020 4:48pm Start: 04-16-2020 End: 11-25-2020 take 1 tablet by mouth three times daily Gabapentin 600 mg tablet Discontinued 600 MG PO Three times daily 0 April 16, 2020 12:18pm November 25, 2020 4:49pm Start: 10-04-2017 End: 04-16-2020 Gabapentin 600 mg tablet Discontinued 700 MG PO Three times daily October 04, 2017 1:00am April 16, 2020 12:18pm Start: 10-04-2017 End: 04-16-2020 take 700 mg by mouth three times daily Gabapentin Discontinued 700 MG PO Three times daily October 04, 2017 1:00am April 16, 2020 12:18pm hydrOXYzine hydrochloride 25 mg oral tablet (20 sources) Antihistamine End: 02-07-2025 take 1 tablet by mouth every eight hours as needed for anxiety hydrOXYzine HCl (Atarax) 25 MG tablet Take 1 tablet by mouth every 8 (eight) hours if needed for anxiety 02/07/2025 Discontinued 24 hr metoprolol succinate 25 mg extended release oral tablet (20 sources) beta-Adrenergic Milka Start: 04-08-2020 take 1 tablet by mouth once daily metoprolol succinate XL (Toprol-XL) 25 MG 24 hr tablet Indications: Essential (primary) hypertension , Essential hypertension TAKE 1 TABLET BY MOUTH EVERY DAY 90 tablet 1 10/30/2023 Active 10 ml ocrelizumab 30 mg/ml injection (4 sources) Start: 12-13-2023 take 30 mg intravenously every other week Ocrelizumab (Ocrevus) 30 mg/mL solution Active 300 MG IV EVERY 2 WEEKS December 13, 2023 12:00am ocrelizumab 300 mg in sodium chloride 0.9 % 250 mL IVPB (20 sources) ocrelizumab 300 mg in sodium chloride 0.9 % 250 mL IVPB Infuse 300 mg into a venous catheter 1 (one) time Active OXcarbazepine 300 mg oral tablet (20 sources) Anti-epileptic Agent Start: 04-08-2020 take 1 tablet by mouth twice daily OXcarbazepine (Trileptal) 300 MG tablet Indications: Seizure (HCC) TAKE 1 TABLET BY MOUTH TWICE A DAY 60 tablet 4 10/15/2024 Active oxyCODONE hydrochloride 5 mg oral tablet (20 sources) Opioid Agonist Start: 02-19-2021 take 1 tablet by mouth every twenty-four hours oxyCODONE HCl 5 MG 1 tablet as needed Orally once a day for 7 days Feb, Active Start: 12-03-2020 End: 12-13-2023 take 5-10 mg by mouth every six hours as needed for pain Oxycodone 5 mg capsule Discontinued 5 - 10 MG PO Q6H as needed for pain 60 8 December 03, 2020 December 13, 2023 10:23am Start: 04-16-2020 End: 11-25-2020 take 5-10 mg by mouth every six hours as needed for pain Oxycodone 5 mg capsule Discontinued 5 - 10 MG PO Q6H as needed for pain 60 8 April 16, 2020 November 25, 2020 4:48pm Start: 04-08-2020 End: 04-16-2020 take 1 tablet by mouth three times daily as needed for pain Oxycodone 5 mg tablet Discontinued 5 MG PO Three times daily as needed for Pain April 08, 2020 12:00am April 16, 2020 12:18pm Start: 11-09-2017 End: 04-08-2020 take 1 tablet by mouth every six hours as needed for pain Oxycodone (Roxicodone) 5 mg Tablet Discontinued 5 MG PO Q6H as needed for Pain 60 November 09, 2017 April 08, 2020 10:57am Prednisone (20 sources) Start: 12-03-2020 Prednisone Act maciej 1 dose pk PO per package directions December 03, 2020 12:12pm take 4 tabs for 3 days then take 3 tabs for 3 days then take 2 tabs for 3 days then take 1 tab for 3 days Start: 12-03-2020 End: 12-13-2023 Prednisone 10 mg tablets,dos e pack Discontinued 1 dose pk PO per package directions [...] 3 days Start: 04-16-2020 End: 11-25-2020 Prednisone 10 mg tablets,dos e pack Discontinued 1 dose pk PO per package directions April 16, [...] 3 days Start: 11-09-2017 End: 04-08-2020 Prednisone 10 mg tablets,dos e pack Discontinued 1 dose pk PO per package directions November 09, [...] 3 days Start: 10-04-2017 End: 11-02-2017 take 2 tablets by mouth once daily in the morning Prednisone 20 mg tablet Discontinued 40 MG PO Every morning 10 October 04, 2017 1:00am November 02, 2017 11:06am administer with food or milk Start: 10-04-2017 End: 11-02-2017 take 40 mg by mouth once daily in the morning Prednisone Discontinued 40 MG PO Every morning 10 October 04, 2017 1:00am November 02, 2017 11:06am administer with food or milk QUEtiapine 300 mg oral tablet (20 sources) Atypical Antipsychotic Start: 04-08-2020 End: 06-20-2024 take 1 tablet by mouth at bedtime QUEtiapine (SEROquel) 300 MG tablet Indications: Psychophysiological insomnia Take 1 tablet (300 mg) by mouth at bedtime 90 tablet 1 06/20/2024 Active Start: 10-04-2017 End: 04-08-2020 take 100-200 mg by mouth at bedtime Quetiapine 100 mg tablet Discontinued 100 - 200 MG PO Bedtime October 04, 2017 1:00am April 08, 2020 10:57am Start: 10-04-2017 End: 04-08-2020 take 100-200 mg by mouth at bedtime Quetiapine Discontinued 100 - 200 MG PO Bedtime October 04, 2017 1:00am April 08, 2020 10:57am Completed/Discontinued Medications Medication Drug Class(es) Dates Sig (Normalized) Sig (Original) acetaminophen 325 mg / oxyCODONE hydrochloride 5 mg oral tablet (16 sources) Opioid Agonist Start: 10-04-2017 End: 11-09-2017 take 1 tablet by mouth every four to six hours as needed for pain Oxycodone-Acetaminop hen (Percocet) 5-325 mg tablet Discontinued 1 TAB PO EVERY 4-6 HOURS as needed for Pain November 02, 2017 11:44am November 09, 2017 2:20pm cholecalciferol 0.025 mg oral capsule (8 sources) Vitamin D Start: 10-04-2017 End: 04-08-2020 take 1 capsule by mouth once Cholecalciferol (Vitamin D3) (Vitamin D3) 1,000 unit Capsule Discontinued 1000 UNIT PO Once October 04, 2017 1:00am April 08, 2020 10:56am cyclobenzaprine hydrochloride 10 mg oral tablet (20 sources) Muscle Relaxant Start: 12-03-2020 End: 12-11-2024 take 1 tablet by mouth three times daily as needed for muscle spasms Cyclobenzaprine 10 mg tablet Discontinued 10 MG PO Three times daily as needed for back spasms 50 December 03, 2020 12:00am December 11, 2024 9:49am Start: 04-16-2020 End: 11-25-2020 take 1 tablet by mouth three times daily as needed for muscle spasms Cyclobenzaprine 10 mg tablet Discontinued 10 MG PO Three times daily as needed for back spasms 50 April 16, 2020 12:00am November 25, 2020 4:49pm Start: 11-09-2017 End: 04-08-2020 take 1 tablet by mouth three times daily as needed for muscle spasms Cyclobenzaprine 10 mg tablet Discontinued 10 MG PO Three times daily as needed for back spasms 50 November 09, 2017 12:00am April 08, 2020 10:56am docusate sodium 100 mg oral capsule (2 sources) Start: 12-28-2023 End: 05-09-2024 take 1 capsule by mouth in the morning docusate sodium (Colace) 100 MG capsule Take 100 mg by mouth in the morning and 100 mg before bedtime. 12/28/2023 05/09/2024 Discontinued (Therapy completed) 1 ml glatiramer acetate 20 mg/ml prefilled syringe (8 sources) Start: 10-04-2017 End: 04-08-2020 inject 20 mg by subcutaneous injection once daily Glatiramer (Glatopa) 20 mg/mL syringe Discontinued 20 MG SUBCUT Daily October 04, 2017 1:00am April 08, 2020 10:57am sulfamethoxazole 800 mg / trimethoprim 160 mg oral tablet (16 sources) Dihydrofolate Reductase Inhibitor Antibacterial, Sulfonamide Antimicrobial Start: 04-16-2020 End: 11-25-2020 take 1 tablet by mouth every twelve hours Sulfamethoxazole -Trimethoprim (Bactrim Ds) 800-160 mg Tablet Discontinued 1 TAB PO Q12H 10 April 16, 2020 12:00am November 25, 2020 4:48pm Start: 11-09-2017 End: 04-08-2020 take 1 tablet by mouth every twelve hours Sulfamethoxazole-Trimethoprim (Bactrim D s) 800-160 mg Tablet Discontinued 1 TAB PO Q12H November 09, 2017 12:00am April 08, 2020 10:57am teriflunomide 14 mg oral tablet (8 sources) Pyrimidine Synthesis Inhibitor Start: 04-08-2020 End: 12-13-2023 take 1 tablet by mouth once daily Teriflunomide (Aubagio) 14 mg tablet Discontinued 14 MG PO Daily April 08, 2020 12:00am December 13, 2023 10:23am tiZANidine 4 mg oral tablet (11 sources) Central alpha-2 Adrenergic Agonist Start: 04-08-2020 End: 04-16-2020 take 1 tablet by mouth twice daily Tizanidine 4 mg tablet Discontinued 4 MG PO Twice daily April 08, 2020 12:00am April 16, 2020 12:18pm take 1-0.5 tablets b y mouth once daily at bedtime tiZANidine HCl 4 MG TAKE 1 AND 1/2 TO 2 TABLETS BY MOUTH DAILY AT BEDTIME Oral for 30 Active Problems Active Problems Problem Classification Problem Date Documented Date Episodic/Chronic Anxiety disorders (8 sources) Other specified anxiety disorders; Translations: [Anxiety disorder, unspecified] Onset: 01-08-2022 Chronic Attention-deficit, conduct, and disruptive behavior disorders (20 sources) Attention deficit hyperactivity disorder, predominantly inattentive type; Translations: [Attention-deficit hyperactivity disorder, predominantly inattentive type] Onset: 07-27-2023 07-27-2023 Chronic Diseases of white blood cells (1 source) Elevated white blood cell count, unspecified; Translations: [ELEVATED WHITE BLOOD CELL COUNT UNS] Onset: 01-25-2022 Chronic Genitourinary congenital anomalies (20 sources) Renal agenesis; 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 EHR Cmte Other connective tissue disease (4 sources) Other symptoms and signs involving the musculoskeletal system; Translations: [Other musculoskeletal symptoms referable to limbs] 04-24-2024 Episodic Other male genital disorders (20 sources) Male erectile dysfunction, unspecified; Translations: [Impotence of organic origin] Onset: 11-29-2023 11-29-2023 Chronic Other nervous system disorders (20 sources) Chronic pain; Translations: [Other chronic pain] Onset: 07-27-2023 Resolved: 02-07-2025 3 Chronic Other screening for suspected conditions (not mental disorders or infectious disease) (6 sources) Abnormal results of thyroid function studies; Translations: [Patient encounter status] Onset: 04-08-2022 Episodic Spondylosis; intervertebral disc disorders; other back problems (20 sources) Prolapsed lumbar intervertebral disc; Translations: [Other intervertebral disc displacement, lumbar region] Onset: 05-16-2017 Resolved: 02-07-2025 11-28-2020 Chronic Comment on above: Problem List clean-u p per request of Phys. 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] Onset: 11-29-2023 Resolved: 02-07-2025 11-29-2023 Chronic Fluid and electrolyte disorders (4 sources) Hypo-osmolality and hyponatremia; Translations: [HYPO-OSMOLALITY AND HYPONATREMIA] Onset: 01-19-2022 Episodic Immunizations and screening for infectious disease (16 sources) Needs influenza immunization; Translations: [Encounter for immunization] Onset: 06-20-2024 Resolved: 02-07-2025 06-20-2024 Episodic Intracranial injury (1 source) Personal history of traumatic brain injury; Translations: [PERSONAL HX TRAUMATIC BRAIN INJURY] Onset: 01-26-2022 Episodic Malaise and fatigue (20 sources) Asthenia; Translations: [Weakness] Onset: 11-29-2023 Resolved: 02-07-2025 11-29-2023 Episodic Other aftercare (1 source) Other custodial (current) drug therapy; Translations: [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] Onset: 02-01-2022 Episodic Other connective tissue disease (1 source) Pain in left foot Onset: 12-01-2021 Resolved: 12-01-2021 Episodic Other connective tissue disease (1 source) Arthrodesis status Onset: 12-01-2021 Resolved: 12-01-2021 Episodic Other connective tissue disease (20 sources) History of lumbar fusion; Translations: [Arthrodesis status] Onset: 05-09-2024 12-13-2023 Episodic Other connective tissue disease (20 sources) Pain in limb; Translations: [Pain in unspecified limb] Onset: 02-21-2024 Resolved: 02-07-2025 02-21-2024 Episodic Other nervous system disorders (20 sources) Abnormal gait; Translations: [Unspecified abnormalities of gait and mobility] Onset: 11-29-2023 Resolved: 02-07-2025 11-29-2023 Episodic Other nervous system disorders (20 sources) Numbness; Translations: [Anesthesia of skin] Onset: 11-29-2023 Resolved: 02-07-2025 11-29-2023 Episodic Other nervous system disorders (20 sources) Skin sensation disturbance; Translations: [Unspecified disturbances of skin sensation] Onset: 11-29-2023 Resolved: 02-07-2025 11-29-2023 Episodic Other nervous system disorders (20 sources) Paresthesia; Translations: [Paresthesia of skin] Onset: 11-29-2023 02-21-2024 Episodic Other non-traumatic joint disorders (20 sources) Pain in left shoulder; Translations: [Pain in joint, shoulder region] Onset: 05-09-2024 Resolved: 02-07-2025 05-09-2024 Episodic Poisoning by other medications and drugs (4 sources) Poisoning by unspecified narcotics, accidental (unintentional), initial encounter; Translations: [POISON UNS NARCOTIC ACC INITIAL ENC] Onset: 01-24-2022 Episodic Residual codes; unclassified (4 sources) Transient alteration of awareness; Translations: [TRANSIENT ALTERATION OF AWARENESS] Onset: 01-22-2022 Episodic Residual codes; unclassified (20 sources) Amnesia; Translations: [Other amnesia] Onset: 11-29-2023 Resolved: 02-07-2025 11-29-2023 Episodic Screening and history of mental health and substance abuse codes (1 source) Personal history of nicotine dependence; Translations: [PERSONAL HISTORY OF NICOTINE DEPEND] Onset: 01-11-2022 Episodic Spondylosis; intervertebral disc disorders; other back problems (20 sources) Sciatica; Translations: [Sciatica, unspecified side] Onset: 10-12-2021 Resolved: 02-07-2025 11-25-2020 Episodic Comment on above: Problem List clean-u p per request of Phys. EHR Cmte Substance-related disorders (1 source) Cannabis use, unspecified, uncomplicated; Translations: [CANNABIS USE UNS UNCOMPLICATED] Onset: 01-26-2022 Episodic Syncope (20 sources) Syncope; Translations: [Syncope and collapse] Onset: 02-21-2024 Resolved: 02-07-2025 02-21-2024 Episodic Unclassified (2 sources) Patient encounter status 02-07-2025 Results Test Name Value Interpretation Reference Range Facility MR lumbar spine wo/w conon 0 02-02-2025 MR lumbar spine wo/w con [facility] Main [place] [address] [place] [address] MRI Report Signed Patient: Alexis Negrete II MR#: [id number] : 1980 Acct:[id number] Age/Sex: 44 / M ADM Date: 02/02/25 Loc: MR Room: Type: [facility] Attending Dr: Js May MD Copies to: Js May MD Ordering Provider: Js May MD Date of Service: 02/02/25 MR/MR lumbar spine wo/w con: M48.062 - Spinal stenosis, lumbar region with neurogenic ... EXAMINATION: MRI LUMBAR SPINE WITH AND WITHOUT IV CONTRAST CLINICAL HISTORY: Multiple lower back surgeries. Left foot drop since 2018. History of multiple sclerosis. COMPARISON: Lumbar spine series of 12/03/2024. TECHNIQUE: Multiecho imaging was performed in the sagittal and axial planes with and without contrast administration. FINDINGS: Posterior hardware fixation L4-S1 with associated blooming artifact limiting evaluation. Vertebral body heights appear maintained. No bone edema is seen. Spinal cord terminates in normal position without abnormal cord signal or enhancement.. No paraspinal mass. Visualized retroperitoneum demonstrates no acute process. At L1-L2: No posterior disc pathology. No neural canal or foraminal stenosis. At L2-L3: Mild broad-based disc bulge is present with facet joint degenerative changes causing mild canal and bilateral neural foraminal stenosis. At L3-L4: Diffuse broad-based disc bulge is present eccentric towards the right with ligament flavum hypertrophy and facet joint degenerative changes. Findings are causing moderate canal and bilateral neural foraminal stenosis. At L4-L5: Postsurgical changes. No significant canal stenosis. At L5-S1: Postsurgical changes. No significant canal stenosis. MR/MR lumbar spine wo/w con IMPRESSION: Degenerative disc disease as described above worst at L3-L4 causing moderate canal and bilateral neural foraminal stenosis. Impression dictated by: Willian Bergeron Jr., D.O. 02/02/2025 9:21 AM Dictation Location: [facility] Transcribed By: [facility] 02/02/25920 Dictated By: Willian Bergeron Jr, DO 02/02/25916 Signed By: 02/02/25920 Normal [facility] ALL CBC WITH AUTO DIFFon BASOPHILS ABSOLUTE AUTO 0.1 [facility] Basophils/100 WBC (Bld) 0.5 % 0.2 - 2.0 % [facility] Eosinophils/100 WBC (Bld) 1.2 % 0.9 - 7.0 % [facility] Erythrocyte distribution width (RBC) [Ratio] 12.6 % 11.0 - 15.0 % [facility] Hematocrit (Bld) [Volume fraction] 46.9 % 42.0 - 54.0 % [facility] ([facility] [Mass/Vol] 15.4 g/dL 14.0 - 18.0 g/dL [facility] IMMATURE GRANULOCYTES ABS AUTO 0.04 High [facility] Immature granulocytes/100 WBC (Bld) 0.4 % 0.0 - 0.5 % [facility] Interpretation and review of laboratory results Abnormal [facility] LYMPHOCYTES ABSOLUTE AUTO 2.7 [facility] Lymphocytes/100 WBC (Bld) 25.2 % 20.5 - 60.0 % [facility] MCH (RBC) [Entitic mass] 30.3 pg 25.9 - 34.0 pg [facility] MCHC (RBC) [Mass/Vol] 32.8 g/dL 29.9 - 35.2 g/dL [facility] MCV (RBC) [Entitic vol] 92.1 fL 80.0 - 94.0 fL [facility] MONOCYTES ABSOLUTE AUTO 0.9 High [facility] Monocytes/100 WBC (Bld) 8.5 % 1.7 - 12.0 % [facility] NEUTROPHILS ABSOLUTE AUTO 6.8 High [facility] Neutrophils/100 WBC (Bld) 64.2 % 43.0 - 75.0 % [facility] Platelet mean volume (Bld) [Entitic vol] 8.6 fL Low 9.5 - 13.5 fL [facility] E[facility] PLT 265 [facility] RBC 5.09 [facility] WBC 10.6 [facility] X-ray reportOrdered By: Les Bergeron on 12-03-2024 Study report [facility] [place] [address] XRay Report Signed Patient: Alexis Negrete II R#: [id number] : 1980 Acct:[id number] Age/Sex: 44 / M ADM Date: 5 Loc: XD Room: Type: [facility] Attending Dr: Js May MD Copies to: Js May MD~ Ordering Provider: Js May MD Date of Service: 12/03/24 XR/XR lumbar spine AP/LAT/FLX/EXT: M54.16 - Radiculopathy, lumbar region LUMBAR SPINE - 4 views CLINICAL HISTORY: Yearly follow-up. COMPARISON: Lumbar spine 12/10/2023 FINDINGS: Posterior hardware fixation L4-S1 grossly unchanged from the prior study with fracture involving the pedicular screws at S1. Vertebral body heights appear maintained. 4 mm retrolisthesis of L2 on L3 without pathologicalmotion. XR/XR lumbar spine AP/LAT/FLX/EXT IMPRESSION: NO SIGNIFICANT CHANGE IN LUMBAR SPINE FINDINGS. Impression dictated by: Willian Bergeron Jr., D.OSiri12/03/2024 4:23 PM Dictation Location: [place] [address] Transcribed By: [facility] 12/03/24 162 Dictated By: Willian Bergeron Jr, DO 12/03/24 162 Signed By: 12/03/24 162 [facility] XR lumbar spine AP/LAT/FLX/E XTon 12-03-2024 XR lumbar spine AP/LAT/FLX/EXT [facility] Main [place] [id number] XRay Report Signed Patient: Alexis Negrete II MR#: [id number] : 1980 Acct:[id number] Age/Sex: 44 / M ADM Date: 12/03/24 Loc: XD Room: Type: [facility] Attending Dr: Js May MD Copies to: Js May MD Ordering Provider: Js May MD Date of Service: 12/03/24 XR/XR lumbar spine AP/LAT/FLX/EXT: M54.16 - Radiculopathy, lumbar region LUMBAR SPINE - 4 views CLINICAL HISTORY: Yearly follow-up. COMPARISON: Lumbar spine 12/10/2023 FINDINGS: Posterior hardware fixation L4-S1 grossly unchanged from the prior study with fracture involving the pedicular screws at S1. Vertebral body heights appear maintained. 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 XR/XR lumbar spine AP/LAT/FLX/EXT IMPRESSION: NO SIGNIFICANT CHANGE IN LUMBAR SPINE FINDINGS. Impression dictated by: Willian Bergeron Jr., DSiriOSiri12/03/2024 4:23 PM Dictation Location: [place] [address] Transcribed By: [facility] 12/03/24 1623 Dictated By: Willian Bergeron Jr, DO 12/03/24 1621 Signed By: 12/03/24 1623 Normal [facility] ALL CBC WITH AUTO DIFFon BASOPHILS ABSOLUTE AUTO 0.1 [facility] Basophils/100 WBC (Bld) 0.7 % 0.2 - 2.0 % [facility] Eosinophils/100 WBC (Bld) 0.7 % Low 0.9 - 7.0 % [facility] Erythrocyte distribution width (RBC) [Ratio] 12.8 % 11.0 - 15.0 % [facility] Hematocrit (Bld) [Volume fraction] 45.9 % 42.0 - 54.0 % [facility] [Mass/Vol] 15.2 g/dL 14.0 - 18.0 g/dL [facility] IMMATURE GRANULOCYTES ABS AUTO 0.02 [facility] Immature granulocytes/100 WBC (Bld) 0.2 % 0.0 - 0.5 % [facility] Interpretation and review of laboratory results Abnormal [facility] LYMPHOCYTES ABSOLUTE AUTO 2.7 [facility] Lymphocytes/100 WBC (Bld) 28.6 % 20.5 - 60.0 % [facility] MCH (RBC) [Entitic mass] 30.2 pg 25.9 - 34.0 pg [facility] MCHC (RBC) [Mass/Vol] 33.1 g/dL 29.9 - 35.2 g/dL [facility] MCV (RBC) [Entitic vol] 91.3 fL 80.0 - 94.0 fL [facility] MONOCYTES ABSOLUTE AUTO 0.8 [facility] Monocytes/100 WBC (Bld) 8.7 % 1.7 - 12.0 % [facility] NEUTROPHILS ABSOLUTE AUTO 5.8 [facility] Neutrophils/100 WBC (Bld) 61.1 % 43.0 - 75.0 % [facility] Platelet mean volume (Bld) [Entitic vol] 9.2 fL Low 9.5 - 13.5 fL [facility] EO # 0.1 [facility] PLT 194 [facility] RBC 5.03 [facility] WBC 9.6 [facility] MR head/brain wo/w conon MR head/brain wo/[place] [address] MRI Report Signed Patient: Alexis Negrete II MR#: [id number] : 1980 Acct:[id number] Age/Sex: 43 / M ADM Date: 03/21/24 Loc: MR Room: Type: [facility] Attending Dr: Vanda Sunshine PA-C Copies to: [...] Wyatt Ramos M.D.03/22/2024 8:31 AM Dictation Location: [place] [address] Transcribed By: [facility] 03/22/2431 Dictated By: Wyatt Ramos DO 03/21/241923 Signed By: 03/22/2431 Normal [facility] CBC AUTO DIFFon 09-16-2022 BASO # 0.0 103/ul Normal 0.0-0.1 [facility] Comment on above: Performed By: #### C BC #### [facility] [address] [place] [address] Dr. Nehemiah Vargas Basophils/100 WBC (Bld) 0.5 % Normal 0.2-2.0 [facility] Comment on above: Performed By: #### C BC #### [facility] [address] [place] [address] Dr. Nehemiah Vargas EO # 0.0 103/ul Normal 0.0-0.7 [facility] Comment on above: Performed By: #### C BC #### [facility] [address] [place] [address] Dr. Nehemiah Vargas Eosinophils/100 WBC (Bld) 0.5 % Critically low 0.9-7.0 [facility] Comment on above: Performed By: #### C BC #### [facility] [address] [place] [address] Dr. Nehemiah Vargas Erythrocyte distribution width (RBC) [Ratio] 13.2 % Normal 11.0-15.0 [facility] Comment on above: Performed By: #### C BC #### [facility] [address] [place] [address] Dr. Nehemiah Vargas Hematocrit (Bld) [Volume fraction] 50.1 % Normal 42.0-54.0 [facility] Comment on above: Performed By: #### C BC #### [facility] [address] [place] [address] Dr. Nehemiah Vargas Hemoglobin (Bld) [Mass/Vol] 15.2 g/dL Normal 14.0-18.0 [facility] Comment on above: Performed By: #### C BC #### [facility] [address] [place] [address] Dr. Nehemiah Vargas IG # 0.02 10e3/ul Normal 0.00-0.03 [facility] Comment on above: Performed By: #### C BC #### [facility] [address] [place] [address] Dr. Nehemiah Vargas IG % 0.3 % Normal 0.0-0.5 [facility] Comment on above: Performed By: #### C BC #### [facility] [address] [place] [address] Dr. Nehemiah Vargas LYMPH # 1.8 103/ul Normal 1.2-3.8 [facility] Comment on above: Performed By: #### C BC #### [facility] [address] [place] [address] Dr. Nehemiah Vargas Lymphocytes/100 WBC (Bld) 22.9 % Normal 20.5-60.0 [facility] Comment on above: Performed By: #### C BC #### [facility] [address] [place] [address] Dr. Nehemiah Vargas MANUAL DIFF REQ NO Normal [facility] Comment on above: Performed By: #### C BC #### [facility] [address] [place] [address] Dr. Nehemiah Vargas MCH (RBC) [Entitic mass] 29.9 pg Normal 25.9-34.0 [facility] Comment on above: Performed By: #### C BC #### [facility] [address] [place] [address] [address] Nehemiah Vargas MCHC (RBC) [Mass/Vol] 30.3 g/dL Normal 29.9-35.[address] [facility] Comment on above: Performed By: #### C BC #### [facility] [address] [place] [address] Dr. Nehemiah Vargas MCV (RBC) [Entitic vol] 98.4 fL Critically high 80.0-94.0 [facility] Comment on above: Performed By: #### C BC #### [facility] [address] [place] [address] Dr. Nehemiah Vargas MONO # 0.5 103/ul Normal 0.3-0.8 [facility] Comment on above: Performed By: #### C BC #### [facility] [address] [place] [address] Dr. Nehemiah Vargas Monocytes/100 WBC (Bld) 6.7 % Normal 1.7-12.0 [facility] Comment on above: Performed By: #### C BC #### [facility] [address] [place] [address] Dr. Nehemiah Vargas NEUT # 5.5 103/ul Normal 1.4-6.5 [facility] Comment on above: Performed By: #### C BC #### [facility] [address] [place] [address] Dr. Nehemiah Vargas Neutrophils/100 WBC (Bld) 69.1 % Normal 43.0-75.[address] [facility] Comment on above: Performed By: #### C BC #### [facility] [address] [place] [address] Dr. Nehemiah Vargas Platelet mean volume (Bld) [Entitic vol] 10.1 fL Normal 9.5-13.[address] [facility] Comment on above: Performed By: #### C BC #### [facility] [address] [place] [address] Dr. Nehemiah Vargas PLT 159 103/ul Normal 150-[address] [facility] Comment on above: Performed By: #### C BC #### [facility] [address] [place] [address] [address] Nehemiah Vargas RBC 5.09 106/ul Normal 4.70-6.10 [facility] Comment on above: Performed By: #### C BC #### [facility] [address] [place] [address] [address] Nehemiah Vargas WBC 7.9 103/ul Normal 4.0-11.0 [facility] Comment on above: Performed By: #### C BC #### [facility] [address] [place] [address] [address] Nehemiah Vargas PROF 14(COMP METB)on 023 Albumin [Mass/Vol] 3.9 g/dL Normal 3.4-5.0 [facility] Comment on above: Performed By: #### C MP #### [facility] [address] [place] [address] Dr. Nehemiah Vargas Albumin/Globulin [Mass ratio] 1.2 {ratio} Normal [facility] Comment on above: Performed By: #### C MP #### [facility] [address] [place] [address] Dr. Nehemiah Vargas ALP [Catalytic activity/Vol] 118 U/L Critically high 46-116 [facility] Comment on above: Performed By: #### C MP #### [facility] [address] [place] [address] Dr. Nehemiah Vargas ALT [Catalytic activity/Vol] 25 U/L Normal 16-[address] [facility] Comment on above: Performed By: #### C MP #### [facility] [address] [place] [address] Dr. Nehemiah Vargas Anion gap [Moles/Vol] 11.7 mmol/L Normal [facility] Comment on above: Performed By: #### C MP #### [facility] [address] [place] [address] Dr. Nehemiah Vargas AST [Catalytic activity/Vol] 24 U/L Normal 15-37 [facility] Comment on above: Performed By: #### C MP #### [facility] [address] [place] [address] [address] Nehemiah Vargas Bilirubin [Mass/Vol] 0.5 mg/dL Normal 0.2-1.0 [facility] Comment on above: Performed By: #### C MP #### [facility] [address] [place] [address] [address] Nehemiah Vargas Calcium [Mass/Vol] 8.8 mg/dL Normal 8.5-10.1 [facility] Comment on above: Performed By: #### C MP #### [facility] [address] [place] [address] [address] Nehemiah Vargas Chloride [Moles/Vol] 101 mmol/L Normal 98-107 [facility] Comment on above: Performed By: #### C MP #### [facility] [address] [place] [address] Dr. Nehemiah Vargas CO2 [Moles/Vol] 30.4 mmol/L Normal 21.0-32.0 [facility] Comment on above: Performed By: #### C MP #### [facility] [address] [place] [address] Dr. Nehemiah Vargas Creatinine [Mass/Vol] 0.86 mg/dL Normal 0.70-1.30 [facility] Comment on above: Performed By: #### C MP #### [facility] [address] [place] [address] Dr. Nehemiah Vargas EGFR-AF FINNISH >60 Normal >=60 [facility] Comment on above: Performed By: #### C MP #### [facility] [address] [place] [address] Dr. Nehemiah Vargas EGFR-NON AF FINNISH >60 Normal >=60 [facility] Comment on above: Performed By: #### C MP #### [facility] [address] [place] [address] Dr. Nehemiah Vargas Globulin (S) [Mass/Vol] 3.2 g/dL Normal [facility] Comment on above: Performed By: #### C MP #### [facility] [address] [place] [address] Dr. Nehemiah Vargas Glucose [Mass/Vol] 116 mg/dL Critically high 74-106 [facility] Comment on above: Performed By: #### C MP #### [facility] [address] [place] [address] [address] Nehemiah Vargas Potassium [Moles/Vol] 4.1 mmol/L Normal 3.5-5.1 [facility] Comment on above: Performed By: #### C MP #### [facility] [address] [place] [address] [address] Nehemiah Vargas Protein [Mass/Vol] 7.1 g/dL Normal 6.4-8.2 [facility] Comment on above: Performed By: #### C MP #### [facility] [address] [place] [address] [address] Nehemiah Vargas Sodium [Moles/Vol] 139 mmol/L Normal 136-145 [facility] Comment on above: Performed By: #### C MP #### [facility] [address] [place] [address] [address] Nehemiah Vargas Urea nitrogen [Mass/Vol] 10.0 mg/dL Normal 7.0-18.0 [facility] Comment on above: Performed By: #### C MP #### [facility] [address] [place] [address] [address] Nehemiah aVrgas Urea nitrogen/Creatinine [Mass ratio] 11.6 mg/mg Normal [facility] Comment on above: Performed By: #### C MP #### [facility] [address] [place] [address] [address] Nehemiah Vargas VIT D 25-OH LABCORPon 2021 Vitamin D, 25-Hydroxy 42.1 ng/mL Normal 30.0-100.0 [facility] Comment on above: Result Comment: Bria min D deficiency has been defined by the [place] [employer] of [employer] and an Endocrine Society practice guideline as a level of serum 25-OH vitamin D less than 20 ng/mL (1,2). The Endocrine Society went on to further define vitamin D insufficiency as a level between 21 and 29 ng/mL (2). 1. IOM ([employer] of [employer]). 2010. Dietary reference intakes for calcium and D. [place]: The National Academies Press. 2. Deana MF, Eddie NC, Migel AMADOR, et al. Evaluation, treatment, and prevention of vitamin D deficiency: an Endocrine Society clinical practice guideline. JCEM. 2010; 96(7):1911-30. Performed By: #### V ITADLC #### [facility] [address] [place] [address] [address] Nehemiah Vargas FREE T3on 04-08-2022 FREE T3 1.59 pg/mlL Critically low 2.18-3.98 [facility] Comment on above: Performed By: #### C BC #### [facility] [address] [place] [address] [address] Nehemiah Vargas FREE T4on 04-08-2022 Free T4 [Mass/Vol] 0.78 ng/dL Normal 0.76-1.46 [facility] Comment on above: Performed By: #### C BC #### [facility] [address] [place] [address] [address] Nehemiah Vargas TSHon 04-08-2022 TSH 0.219 uIU/mL Critically low 0.358-3.740 [facility] Comment on above: Performed By: #### C BC #### [facility] [address] [place] [address] [address] Nehemiah Vargas PROLACTINon 01-23-2022 Prolactin 107.0 ng/mL Critically high 4.0-15.2 [facility] Comment on above: Performed By: #### C BC #### [facility] [address] [place] [address] Dr. Nehemiah Vargas CARDIAC HEIDI ADMITon 022 CK [Catalytic activity/Vol] 108 U/L Normal 39-[address] [facility] Comment on above: Performed By: #### C BC #### [facility] [address] [place] [address] Dr. Nehemiah Vargas CK.MB [Mass/Vol] 3.01 ng/mL Normal <=3.60 [facility] Comment on above: Performed By: #### C BC #### [facility] [address] [place] [address] Dr. Nehemiah Vargas HSTROP 4.0 pg/mL Normal 4.0-76.[address] [facility] Comment on above: Result Comment: CUT- OFF POINTS HAVE BEEN ESTABLISHED BASED ON THE FOURTH UNIVERSAL DEFINITIONS OF MYOCARDIAL INFARCTION. THE UPPER REFERENCE LIMIT (URL) OF TROPONIN, DEFINED THE 99TH PERCENTILE OF cTnI DISTRIBUTION IN A REFERENCE POPULATION, HAS BEEN CONFIRMED THE DECISION THRESHOLD FOR MO DIAGNOSIS. Performed By: #### C BC #### [facility] [address] [place] [address] Dr. Nehemiah Vargas RICARDO 33 ng/mL Normal 16-[address] [facility] Comment on above: Performed By: #### C BC #### [facility] [address] [place] [address] Dr. Nehemiah Vargas CBC AUTO DIFFon 01-22-2022 BASO # 0.0 103/ul Normal 0.0-0.1 [facility] Comment on above: Performed By: #### C BC #### [facility] [address] [place] [address] Dr. Nehemiah Vargas Basophils/100 WBC (Bld) 0.5 % Normal 0.2-2.0 [facility] Comment on above: Performed By: #### C BC #### [facility] [address] [place] [address] Dr. Nehemiah Vargas EO # 0.0 103/ul Normal 0.0-0.7 [facility] Comment on above: Performed By: #### C BC #### [facility] [address] [place] [address] Dr. Nehemiah Vargas Eosinophils/100 WBC (Bld) 0.3 % Critically low 0.9-7.0 [facility] Comment on above: Performed By: #### C BC #### [facility] [address] [place] [address] Dr. Nehemiah Vargas Erythrocyte distribution width (RBC) [Ratio] 12.4 % Normal 11.0-15.0 [facility] Comment on above: Performed By: #### C BC #### [facility] [address] [place] [address] Dr. Nehemiah Vargas Hematocrit (Bld) [Volume fraction] 43.1 % Normal 42.0-54.0 [facility] Comment on above: Performed By: #### C BC #### [facility] [address] [place] [address] Dr. Nehemiah Vargas Hemoglobin (Bld) [Mass/Vol] 14.6 g/dL Normal 14.0-18.0 [facility] Comment on above: Performed By: #### C BC #### [facility] [address] [place] [address] Dr. Nehemiah Vargas IG # 0.02 10e3/ul Normal 0.00-0.03 [facility] Comment on above: Performed By: #### C BC #### [facility] [address] [place] [address] Dr. Nehemiah Vargas IG % 0.3 % Normal 0.0-0.5 [facility] Comment on above: Performed By: #### C BC #### [facility] [address] [place] [address] Dr. Nehemiah Vargas LYMPH # 0.9 103/ul Critically low 1.2-3.8 [facility] Comment on above: Performed By: #### C BC #### [facility] [address] [place] [address] Dr. Nehemiah Vargas Lymphocytes/100 WBC (Bld) 13.1 % Critically low 20.5-60.0 [facility] Comment on above: Performed By: #### C BC #### [facility] [address] [place] [address] Dr. Nehemiah Vargas MANUAL DIFF REQ NO Normal [facility] Comment on above: Performed By: #### C BC #### [facility] [address] [place] [address] Dr. Nehemiah Vargas MCH (RBC) [Entitic mass] 30.0 pg Normal 25.9-34.0 [facility] Comment on above: Performed By: #### C BC #### [facility] [address] [place] [address] Dr. Nehemiah Vargas MCHC (RBC) [Mass/Vol] 33.9 g/dL Normal 29.9-35.2 [facility] Comment on above: Performed By: #### C BC #### [facility] [address] [place] [address] Dr. Nehemiah Vargas MCV (RBC) [Entitic vol] 88.7 fL Normal 80.0-94.0 [facility] Comment on above: Performed By: #### C BC #### [facility] [address] [place] [address] Dr. Nehemiah Vargas MONO # 0.4 103/ul Normal 0.3-0.8 [facility] Comment on above: Performed By: #### C BC #### [facility] [address] [place] [address] Dr. Nehemiah Vargas Monocytes/100 WBC (Bld) 5.3 % Normal 1.7-12.0 [facility] Comment on above: Performed By: #### C BC #### [facility] [address] [place] [address] Dr. Nehemiah Vargas NEUT # 5.4 103/ul Normal 1.4-6.5 [facility] Comment on above: Performed By: #### C BC #### [facility] [address] [place] [address] Dr. Nehemiah Vargas Neutrophils/100 WBC (Bld) 80.5 % Critically high 43.0-75.0 [facility] Comment on above: Performed By: #### C BC #### [facility] [address] [place] [address] Dr. Nehemiah Vargas Platelet mean volume (Bld) [Entitic vol] 9.1 fL Critically low 9.5-13.5 [facility] Comment on above: Performed By: #### C BC #### [facility] [address] [place] [address] Dr. Nehemiah Vargas PLT 198 103/ul Normal 150-[address] [facility] Comment on above: Performed By: #### C BC #### [facility] [address] [place] [address] Dr. Nehemiah Vargas RBC 4.86 106/ul Normal 4.70-6.10 [facility] Comment on above: Performed By: #### C BC #### [facility] [address] [address] [address] Nehemiah Vargas WBC 6.7 103/ul Normal 4.0-11.0 [facility] Comment on above: Performed By: #### C BC #### [facility] [address] [address] HEAD WO CONon [...] IZZY CHAMPAGNE Date: 2022-01-22 12:[address] [facility] LACTATE/LACTIC ACIDon 2021 Lactate [Moles/Vol] 1.2 mmol/L Normal 0.4-1.9 [facility] Comment on above: Performed By: #### L ACT #### [facility] [address] [place] [address] Dr. Nehemiah Vargas LIPASEon 01-22-2022 Lipase [Catalytic activity/Vol] 95.0 U/L Normal 73.0-393.0 [facility] Comment on above: Performed By: #### C BC #### [facility] [address] [place], [place] [address] Dr. Nehemiah Vargas PH VENOUS BLOODon 01-22-2022 PCO2 VENOUS 51.9 mmHg Normal 40.0-52.0 [facility] Comment on above: Performed By: #### C BC #### [facility] [address] [place] [address] Dr. Nehemiah Vargas pH VENOUS 7.301 Critically low 7.330-7.430 [facility] Comment on above: Performed By: #### C BC #### [facility] [address] [place] [address] Dr. Nehemiah Vargas PROF 14(COMP METB)on 022 Albumin [Mass/Vol] 3.7 g/dL Normal 3.4-5.0 [facility] Comment on above: Performed By: #### C BC #### [facility] [address] [place] [address] Dr. Nehemiah Vargas Albumin/Globulin [Mass ratio] 1.2 {ratio} Normal [facility] Comment on above: Performed By: #### C BC #### [facility] [address] [place] [address] Dr. Nehemiah Vargas ALP [Catalytic activity/Vol] 97 U/L Normal 46-116 [facility] Comment on above: Performed By: #### C BC #### [facility] [address] [place] [address] Dr. Nehemiah Vargas ALT [Catalytic activity/Vol] 26 U/L Normal 16-63 [facility] Comment on above: Performed By: #### C BC #### [facility] [address] [place] [address] Dr. Nehemiah Vargas Anion gap [Moles/Vol] 11.1 mmol/L Normal [facility] Comment on above: Performed By: #### C BC #### [facility] [address] [place] [address] Dr. Nehemiah Vargas AST [Catalytic activity/Vol] 20 U/L Normal 15-37 [facility] Comment on above: Performed By: #### C BC #### [facility] [address] [place] [address] Dr. Nehemiah Vargas Bilirubin [Mass/Vol] 0.4 mg/dL Normal 0.2-1.0 [facility] Comment on above: Performed By: #### C BC #### [facility] [address] [place] [address] Dr. Nehemiah Vargas Calcium [Mass/Vol] 8.4 mg/dL Critically low 8.5-10.1 [facility] Comment on above: Performed By: #### C BC #### [facility] [address] [place] [address] Dr. Nehemiah Vargas Chloride [Moles/Vol] 96 mmol/L Critically low 98-107 [facility] Comment on above: Performed By: #### C BC #### [facility] [address] [place] [address] Dr. Nehemiah Vargas CO2 [Moles/Vol] 28.1 mmol/L Normal 21.0-32.0 [facility] Comment on above: Performed By: #### C BC #### [facility] [address] [place] [address] Dr. Nehemiah Vargas Creatinine [Mass/Vol] 0.85 mg/dL Normal 0.70-1.30 [facility] Comment on above: Performed By: #### C BC #### [facility] [address] [place] [address] Dr. Nehemiah Vargas EGFR-AF FINNISH >60 Normal >=60 [facility] Comment on above: Performed By: #### C BC #### [facility] [address] [place] [address] Dr. Nehemiah Vargas EGFR-NON AF FINNISH >60 Normal >=60 [facility] Comment on above: Performed By: #### C BC #### [facility] [address] [place] [address] Dr. Nehemiah Vargas Globulin (S) [Mass/Vol] 3.1 g/dL Normal [facility] Comment on above: Performed By: #### C BC #### [facility] [address] [place] [address] Dr. Nehemiah Vargas Glucose [Mass/Vol] 138 mg/dL Critically high 74-106 T [facility] Comment on above: Performed By: #### C BC #### [facility] [address] [place] [address] Dr. Nehemiah Vargas Potassium [Moles/Vol] 4.2 mmol/L Normal 3.5-5.1 [facility] Comment on above: Performed By: #### C BC #### [facility] [address] [place] [address] Dr. Nehemiah Vargas Protein [Mass/Vol] 6.8 g/dL Normal 6.4-8.2 [facility] Comment on above: Performed By: #### C BC #### [facility] [address] [address] [address] Nehemiah Vargas Sodium [Moles/Vol] 131 mmol/L Critically low 136-145 [facility] Comment on above: Performed By: #### C BC #### [facility] [address] [place] [address] Dr. Nehemiah Vargas Urea nitrogen [Mass/Vol] 7.0 mg/dL Normal 7.0-18.0 [facility] Comment on above: Performed By: #### C BC #### [facility] [address] [place] [address] Dr. Nehemiah Vargas Urea nitrogen/Creatinine [Mass ratio] 8.2 mg/mg Normal [facility] Comment on above: Performed By: #### C BC #### [facility] [address] [place] [address] Dr. Nehemiah Vargas TSHon 01-22-2022 TSH 1.003 uIU/mL Normal 0.358-3.740 [facility] Comment on above: Performed By: #### C BC #### [facility] [address] [place] [address] Dr. Nehemiah Vargas TSH RANGE SEE BELOW Normal [facility] Comment on above: Result Comment: <0.3 4 UIU/ml HYPERTHYROID 0.34-5.60 UIU/ml EUTHYROID >5.60 UIU/ml HYPOTHYROID Performed By: #### C BC #### [facility] [address] [place] [address] Dr. Nehemiah Vargas XR CHEST 1 Von 01-22-2022 XR CHEST 1 V EXAMINATION: XR CHEST 1 V HISTORY: NAUSEA WITH VOMITING, UNSPECIFIED [...] [place] Date: 2022-01-22 12:[address] [facility] CBC AUTO DIFFon 01-19-2022 BASO # 0.0 103/ul Normal 0.0-0.[address] [facility] Comment on above: Performed By: #### C BC #### [facility] [address] [place] [address] Dr. Nehemiah Vargas Basophils/100 WBC (Bld) 0.4 % Normal 0.2-2.0 [facility] Comment on above: Performed By: #### C BC #### [facility] [address] [place] [address] Dr. Nehemiah Vargas EO # 0.1 103/ul Normal 0.0-0.[address] [facility] Comment on above: Performed By: #### C BC #### [facility] [address] [place] [address] Dr. Nehemiah Vargas Eosinophils/100 WBC (Bld) 1.3 % Normal 0.9-7.0 [facility] Comment on above: Performed By: #### C BC #### [facility] [address] [place] [address] Dr. Nehemiah Vargas Erythrocyte distribution width (RBC) [Ratio] 12.9 % Normal 11.0-15.[address] [facility] Comment on above: Performed By: #### C BC #### [facility] [address] [place] [address] Dr. Nehemiah Vargas Hematocrit (Bld) [Volume fraction] 42.8 % Normal 42.0-54.0 [facility] Comment on above: Performed By: #### C BC #### [facility] [address] [place] [address] Dr. Nehemiah Vargas Hemoglobin (Bld) [Mass/Vol] 13.9 g/dL Critically low 14.0-18.0 [facility] Comment on above: Performed By: #### C BC #### [facility] [address] [place] [address] Dr. Nehemiah Vargas IG # 0.02 10e3/ul Normal 0.00-0.03 [facility] Comment on above: Performed By: #### C BC #### [facility] [address] [place] [address] Dr. Nehemiah Vargas IG % 0.3 % Normal 0.0-0.5 [facility] Comment on above: Performed By: #### C BC #### [facility] [address] [place] [address] Dr. Nehemiah Vargas LYMPH # 1.8 103/ul Normal 1.2-3.8 [facility] Comment on above: Performed By: #### C BC #### [facility] [address] [place] [address] Dr. Nehemiah Vargas Lymphocytes/100 WBC (Bld) 26.5 % Normal 20.5-60.0 [facility] Comment on above: Performed By: #### C BC #### [facility] [address] [place] [address] Dr. Nehemiah Vargas MANUAL DIFF REQ NO Normal [facility] Comment on above: Performed By: #### C BC #### [facility] [address] [place] [address] Dr. Nehemiah Vargas MCH (RBC) [Entitic mass] 29.6 pg Normal 25.9-34.0 [facility] Comment on above: Performed By: #### C BC #### [facility] [address] [place] [address] Dr. Nehemiah Vargas MCHC (RBC) [Mass/Vol] 32.5 g/dL Normal 29.9-35.2 [facility] Comment on above: Performed By: #### C BC #### [facility] [address] [place] [address] Dr. Nehemiah Vargas MCV (RBC) [Entitic vol] 91.1 fL Normal 80.0-94.0 [facility] Comment on above: Performed By: #### C BC #### [facility] [address] [place] [address] Dr. Nehemiah Vargas MONO # 0.5 103/ul Normal 0.3-0.8 [facility] Comment on above: Performed By: #### C BC #### [facility] [address] [place] [address] Dr. Nehemiah Vargas Monocytes/100 WBC (Bld) 6.9 % Normal 1.7-12.0 [facility] Comment on above: Performed By: #### C BC #### [facility] [address] [place] [address] Dr. Nehemiah Vargas NEUT # 4.4 103/ul Normal 1.4-6.5 [facility] Comment on above: Performed By: #### C BC #### [facility] [address] [place] [address] Dr. Nehemiah Vargas Neutrophils/100 WBC (Bld) 64.6 % Normal 43.0-75.0 [facility] Comment on above: Performed By: #### C BC #### [facility] [address] [place] [address] Dr. Nehemiah Vargas Platelet mean volume (Bld) [Entitic vol] 10.3 fL Normal 9.5-13.5 [facility] Comment on above: Performed By: #### C BC #### [facility] [address] [place] [address] Dr. Nehemiah Vargas PLT 193 103/ul Normal 150-[address] [facility] Comment on above: Performed By: #### C BC #### [facility] [address] [place] [address] Dr. Nehemiah Vargas RBC 4.70 106/ul Normal 4.70-6.[address] [facility] Comment on above: Performed By: #### C BC #### [facility] [address] [place] [address] Dr. Nehemiah Vargas WBC 6.8 103/ul Normal 4.0-11.[address] [facility] Comment on above: Performed By: #### C BC #### [facility] [address] [address] [address] Nehemiah Vargas PROF CHEM 8 (BAS METB)on Anion gap [Moles/Vol] 8.7 mmol/L Normal [facility] Comment on above: Performed By: #### C BC #### [facility] [address] [address] [address] Nehemiah Vargas Calcium [Mass/Vol] 8.6 mg/dL Normal 8.5-10.1 [facility] Comment on above: Performed By: #### C BC #### [facility] [address] [address] [address] Nehemiah Vargas Chloride [Moles/Vol] 100 mmol/L Normal 98-107 [facility] Comment on above: Performed By: #### C BC #### [facility] [address] [place] [address] Dr. Nehemiah Vargas CO2 [Moles/Vol] 29.8 mmol/L Normal 21.0-32.0 [facility] Comment on above: Performed By: #### C BC #### [facility] [address] [place] [address] Dr. Nehemiah Vargas Creatinine [Mass/Vol] 0.88 mg/dL Normal 0.70-1.30 [facility] Comment on above: Performed By: #### C BC #### [facility] [address] [place] [address] Dr. Nehemiah Vargas EGFR-AF FINNISH >60 Normal >=60 [facility] Comment on above: Performed By: #### C BC #### [facility] [address] [place] [address] Dr. Nehemiah Vargas EGFR-NON AF FINNISH >60 Normal >=60 [facility] Comment on above: Performed By: #### C BC #### [facility] [address] [place] [address] Dr. Nehemiah Vargas Glucose [Mass/Vol] 107 mg/dL Critically high 74-106 [facility] Comment on above: Performed By: #### C BC #### [facility] [address] [address] [address] Nehemiah Vargas Potassium [Moles/Vol] 4.5 mmol/L Normal 3.5-5.1 [facility] Comment on above: Performed By: #### C BC #### [facility] [address] [address] [address] Nehemiah Vargas Sodium [Moles/Vol] 134 mmol/L Critically low 136-145 [facility] Comment on above: Performed By: #### C BC #### [facility] [address] [address] [address] Nehemiah Vargas Urea nitrogen [Mass/Vol] 9.0 mg/dL Normal 7.0-18.0 [facility] Comment on above: Performed By: #### C BC #### [facility] [address] [place] [address] Dr. Nehemiah Vargas Urea nitrogen/Creatinine [Mass ratio] 10.2 mg/mg Normal [facility] Comment on above: Performed By: #### C BC #### [facility] [address] [address] [address] Nehemiah Vargas TSHon 01-19-2022 TSH 0.322 uIU/mL Critically low 0.358-3.740 [facility] Comment on above: Performed By: #### C BC #### [facility] [address] [place] [address] Dr. Nehemiah Vargas TSH RANGE SEE BELOW Normal [facility] Comment on above: Result Comment: <0.3 4 UIU/ml HYPERTHYROID 0.34-5.60 UIU/ml EUTHYROID >5.60 UIU/ml HYPOTHYROID Performed By: #### C BC #### [facility] [address] [address] [address] Nehemiah Vargas CARDIAC HEIDI ADMITon 022 CK [Catalytic activity/Vol] 124 U/L Normal 39-308 [facility] Comment on above: Performed By: #### C MADM, CMP, ETH #### [facility] [address] [address] [address] Nehemiah Vargas CK.MB [Mass/Vol] 3.55 ng/mL Normal <=3.60 [facility] Comment on above: Performed By: #### C SADIE VALLEJO, ETH #### [facility] [address] [place] [address] Dr. Nehemiah Vargas HSTROP 5.7 pg/mL Normal 4.0-76.1 [facility] Comment on above: Result Comment: CUT- OFF POINTS HAVE BEEN ESTABLISHED BASED ON THE FOURTH UNIVERSAL DEFINITIONS OF MYOCARDIAL INFARCTION. THE UPPER REFERENCE LIMIT (URL) OF TROPONIN, DEFINED THE 99TH PERCENTILE OF cTnI DISTRIBUTION IN A REFERENCE POPULATION, HAS BEEN CONFIRMED THE DECISION THRESHOLD FOR MO DIAGNOSIS. Performed By: #### C SADIE VALLEJO, ETH #### [facility] [address] [place] [address] Dr. Nehemiah Vargas RICARDO 62 ng/mL Normal 16-96 [facility] Comment on above: Performed By: #### C SADIE VALLEJO, ETH #### [facility] [address] [place] [address] Dr. Nehemiah Vargas CBC AUTO DIFFon 01-18-2022 BASO # 0.0 103/ul Normal 0.0-0.1 [facility] Comment on above: Performed By: #### C BC #### [facility] [address] [place] [address] Dr. Nehemiah Vargas Basophils/100 WBC (Bld) 0.4 % Normal 0.2-2.0 [facility] Comment on above: Performed By: #### C BC #### [facility] [address] [place] [address] Dr. Nehemiah Vargas EO # 0.1 103/ul Normal 0.0-0.[address] [facility] Comment on above: Performed By: #### C BC #### [facility] [address] [place] [address] Dr. Nehemiah Vargas Eosinophils/100 WBC (Bld) 0.8 % Critically low 0.9-7.0 [facility] Comment on above: Performed By: #### C BC #### [facility] [address] [place] [address] Dr. Nehemiah Vargas Erythrocyte distribution width (RBC) [Ratio] 12.5 % Normal 11.0-15.0 [facility] Comment on above: Performed By: #### C BC #### [facility] [address] [place] [address] Dr. Nehemiah Vargas Hematocrit (Bld) [Volume fraction] 43.9 % Normal 42.0-54.0 [facility] Comment on above: Performed By: #### C BC #### [facility] [address] [place] [address] Dr. Nehemiah Vargas Hemoglobin (Bld) [Mass/Vol] 14.3 g/dL Normal 14.0-18.0 [facility] Comment on above: Performed By: #### C BC #### [facility] [address] [place] [address] Dr. Nehemiah Vargas IG # 0.03 10e3/ul Normal 0.00-0.03 [facility] Comment on above: Performed By: #### C BC #### [facility] [address] [place] [address] Dr. Nehemiah Vargas IG % 0.3 % Normal 0.0-0.5 [facility] Comment on above: Performed By: #### C BC #### [facility] [address] [place] [address] Dr. Nehemiah Vargas LYMPH # 0.9 103/ul Critically low 1.2-3.8 [facility] Comment on above: Performed By: #### C BC #### [facility] [address] [place] [address] Dr. Nehemiah Vargas Lymphocytes/100 WBC (Bld) 9.4 % Critically low 20.5-60.0 [facility] Comment on above: Performed By: #### C BC #### [facility] [address] [place] [address] Dr. Nehemiah Vargas MANUAL DIFF REQ NO Normal [facility] Comment on above: Performed By: #### C BC #### [facility] [address] [place] [address] Dr. Nehemiah Vargas MCH (RBC) [Entitic mass] 29.9 pg Normal 25.9-34.0 [facility] Comment on above: Performed By: #### C BC #### [facility] [address] [address] [address] Nehemiah Vargas MCHC (RBC) [Mass/Vol] 32.6 g/dL Normal 29.9-35.2 [facility] Comment on above: Performed By: #### C BC #### [facility] [address] [address] [address] Nehemiah Vargas MCV (RBC) [Entitic vol] 91.6 fL Normal 80.0-94.0 [facility] Comment on above: Performed By: #### C BC #### [facility] [address] [address] [address] Nehemiah Vargas MONO # 0.5 103/ul Normal 0.3-0.8 [facility] Comment on above: Performed By: #### C BC #### [facility] [address] [address] [address] Nehemiah Vargas Monocytes/100 WBC (Bld) 5.5 % Normal 1.7-12.0 [facility] Comment on above: Performed By: #### C BC #### [facility] [address] [address] [address] Nehemiah Vargas NEUT # 7.6 103/ul Critically high 1.4-6.5 [facility] Comment on above: Performed By: #### C BC #### [facility] [address] [address] [address] Nehemiah Vargas Neutrophils/100 WBC (Bld) 83.6 % Critically high 43.0-75.0 [facility] Comment on above: Performed By: #### C BC #### [facility] [address] [address] [address] Nehemiah Vargas Platelet mean volume (Bld) [Entitic vol] 9.1 fL Critically low 9.5-13.5 [facility] Comment on above: Performed By: #### C BC #### [facility] [address] [address] [address] Nehemiah Vargas PLT 169 103/ul Normal 150-[address] [facility] Comment on above: Performed By: #### C BC #### [facility] [address] [place] [address] Dr. Nehemiah Vargas RBC 4.79 106/ul Normal 4.70-6.[address] [facility] Comment on above: Performed By: #### C BC #### [facility] [address] [place] [address] Dr. Nehemiah Vargas WBC 9.1 103/ul Normal 4.0-11.0 [facility] Comment on above: Performed By: #### C BC #### [facility] [address] [place] [address] Dr. Nehemiah Vargas DRUG SCREEN RAPID (URINE)on 01-18-2022 AMP Negative Normal NEGATIVE [facility] Comment on above: Performed By: #### C BC #### [facility] [address] [place] [address] Dr. Nehemiah Vargas BAR Negative Normal NEGATIVE [facility] Comment on above: Performed By: #### C BC #### [facility] [address] [place] [address] Dr. Nehemiah Vargas BUP Negative Normal NEGATIVE [facility] Comment on above: Performed By: #### C BC #### [facility] [address] [place] [address] Dr. Nehemiah Vargas BZO Positive Abnormal NEGATIVE [facility] Comment on above: Performed By: #### C BC #### [facility] [address] [place] [address] Dr. Nehemiah Vargas JILLIAN Negative Normal NEGATIVE [facility] Comment on above: Performed By: #### C BC #### [facility] [address] [place] [address] Dr. Nehemiah Vargas CUT-OFFS SEE BELOW Normal [facility] Comment on above: Result Comment: AMP [...] Performed By: #### C BC #### [facility] [address] [place] [address] Dr. Nehemiah Vargas DRUG CUT HEADER DRUG CLASS TEST SYSTEM CUT-OFF CONCENTRATIONS ARE FOLLOWS: Normal [facility] Comment on above: Performed By: #### C BC #### [facility] [address] [place] [address] Dr. Nehemiah Vargas mAMP Negative Normal NEGATIVE [facility] Comment on above: Performed By: #### C BC #### [facility] [address] [place] [address] Dr. Neheimah Vargas MTD Negative Normal NEGATIVE [facility] Comment on above: Performed By: #### C BC #### [facility] [address] [place] [address] Dr. Nehemiah Vargas OPI Negative Normal NEGATIVE [facility] Comment on above: Performed By: #### C BC #### [facility] [address] [place] [address] Dr. Nehemiah Vargas OXY Negative Normal NEGATIVE [facility] Comment on above: Performed By: #### C BC #### [facility] [address] [place] [address] Dr. Nehemiah Vargas PCP Negative Normal NEGATIVE [facility] Comment on above: Performed By: #### C BC #### [facility] [address] [place] [address] Dr. Nehemiah Vargas PPX Negative Normal NEGATIVE [facility] Comment on above: Performed By: #### C BC #### [facility] [address] [place] [address] Dr. Nehemiah Vargas TCA Positive Abnormal NEGATIVE [facility] Comment on above: Performed By: #### C BC #### [facility] [address] [place] [address] Dr. Nehemiah Vargas THC Positive Abnormal NEGATIVE [facility] Comment on above: Performed By: #### C BC #### [facility] [address] [address] [address] Nehemiah MALAVE URINE PROFILEon 2 Bilirubin Ql (U) Negative Normal NEGATIVE [facility] Comment on above: Performed By: #### C BC #### [facility] [address] [place] [address] Dr. Nehemiah Vargas Clarity (U) CLEAR Normal CLEAR [facility] Comment on above: Performed By: #### C BC #### [facility] [address] [place] [address] Dr. Nehemiah Vargas Color (U) YELLOW Normal YELLOW [facility] Comment on above: Performed By: #### C BC #### [facility] [address] [place] [address] Dr. Nehemiah SANTO A micrscopic examination will be performed if indicated. Normal [facility] Comment on above: Performed By: #### C BC #### [facility] [address] [place] [address] Dr. Nehemiah Vargas Glucose Ql (U) Negative Normal NEGATIVE [facility] Comment on above: Performed By: #### C BC #### [facility] [address] [place] [address] Dr. Nehemiah Vargas Hemoglobin Ql (U) Negative Normal NEGATIVE [facility] Comment on above: Performed By: #### C BC #### [facility] [address] [place] [address] Dr. Nehemiah Vargas Ketones Ql (U) Negative Normal NEGATIVE [facility] Comment on above: Performed By: #### C BC #### [facility] [address] [place] [address] Dr. Nehemiah Vargas LEUKOCYTES Negative Normal NEGATIVE [facility] Comment on above: Performed By: #### C BC #### [facility] [address] [place] [address] Dr. Nehemiah Vargas Nitrite Ql (U) Negative Normal NEGATIVE [facility] Comment on above: Performed By: #### C BC #### [facility] [address] [place] [address] Dr. Nehemiah Vargas pH (U) 6.0 [pH] Normal 5-[address] [facility] Comment on above: Performed By: #### C BC #### [facility] [address] [place] [address] Dr. Nehemiah Vargas Protein (U) [Mass/Vol] 30 mg/dL Abnormal NEGATIVE/ TRACE [facility] Comment on above: Performed By: #### C BC #### [facility] [address] [place] [address] Dr. Nehemiah Vargas SPEC GRAVITY >=1.030 Abnormal 1.005-<=1.025 [facility] Comment on above: Performed By: #### C BC #### [facility] [address] [place] [address] Dr. Nehemiah Vargas UR MICRO IND INDICATED Normal [facility] Comment on above: Performed By: #### C BC #### [facility] [address] [place] [address] Dr. Nehemiah Vargas Urobilinogen Qn (U) 0.2 {Stevenson'U}/dL Normal 0.2 - 1. 0 [facility] Comment on above: Performed By: #### C BC #### [facility] [address] [place] [address] Dr. Nehemiah Vargas ETHANOL (BLD ALC)on 01-19-20 22 ALC NOTE NOTE: 80 mg/dl is the legal limit for a blood alcohol level Normal [facility] Comment on above: Performed By: #### C SADIE VALLEJO, ETH #### [facility] [address] [place] [address] Dr. Nehemiah Vargas Ethanol [Mass/Vol] mg/dL Normal [facility] Comment on above: Performed By: #### C SADEI VALLEJO, ETH #### [facility] [address] [place] [address] Dr. Nehemiah Vargas PROF 14(COMP METB)on 022 Albumin [Mass/Vol] 3.5 g/dL Normal 3.4-5.0 [facility] [facility] Comment on above: Performed By: #### C MADM, CMP, ETH #### [facility] [address] [address] [address] Nehemiah Vargas Albumin/Globulin [Mass ratio] 1.2 {ratio} Normal [facility] Comment on above: Performed By: #### C MADM, CMP, ETH #### [facility] [address] [address] [address] Nehemiah Vargas ALP [Catalytic activity/Vol] 94 U/L Normal 46-116 [facility] Comment on above: Performed By: #### C MADM, CMP, ETH #### [facility] [address] [address] [address] Nehemiah Vargas ALT [Catalytic activity/Vol] 25 U/L Normal 16-63 [facility] Comment on above: Performed By: #### C MADM, CMP, ETH #### [facility] [address] [address] [address] Nehemiah Vargas Anion gap [Moles/Vol] 10.3 mmol/L Normal [facility] Comment on above: Performed By: #### C MADM, CMP, ETH #### [facility] [address] [address] [address] Nehemiah Vargas AST [Catalytic activity/Vol] 18 U/L Normal 15-37 [facility] Comment on above: Performed By: #### C MADM, CMP, ETH #### [facility] [address] [address] [address] Nehemiah Vargas Bilirubin [Mass/Vol] 0.3 mg/dL Normal 0.2-1.0 [facility] Comment on above: Performed By: #### C MADM, CMP, ETH #### [facility] [address] [address] [address] Nehemiah Vargas Calcium [Mass/Vol] 8.4 mg/dL Critically low 8.5-10.1 [facility] Comment on above: Performed By: #### C MADM, CMP, ETH #### [facility] [address] [address] [address] Nehemiah Vargas Chloride [Moles/Vol] 98 mmol/L Normal 98-107 [facility] Comment on above: Performed By: #### C MADM, CMP, ETH #### [facility] [address] [place] [address] Dr. Nehemiah Vargas CO2 [Moles/Vol] 29.1 mmol/L Normal 21.0-32.0 [facility] Comment on above: Performed By: #### C MADM, CMP, ETH #### [facility] [address] [place] [address] Dr. Nehemiah Vargas Creatinine [Mass/Vol] 0.78 mg/dL Normal 0.70-1.30 [facility] Comment on above: Performed By: #### C MADM, CMP, ETH #### [facility] [address] [place] [address] Dr. Nehemiah Vargas EGFR-AF FINNISH >60 Normal >=60 [facility] Comment on above: Performed By: #### C MADM, CMP, ETH #### [facility] [address] [place] [address] Dr. Nehemiah Vargas EGFR-NON AF FINNISH >60 Normal >=60 [facility] Comment on above: Performed By: #### C MADM, CMP, ETH #### [facility] [address] [place] [address] Dr. Nehemiah Vargas Globulin (S) [Mass/Vol] 3.0 g/dL Normal [facility] Comment on above: Performed By: #### C MADM, CMP, ETH #### [facility] [address] [place] [address] Dr. Nehemiah Vargas Glucose [Mass/Vol] 128 mg/dL Critically high 74-106 T [facility] Comment on above: Performed By: #### C MADM, CMP, ETH #### [facility] [address] [place] [address] Dr. Nehemiah Vargas Potassium [Moles/Vol] 4.4 mmol/L Normal 3.5-5.1 [facility] Comment on above: Performed By: #### C MADM, CMP, ETH #### [facility] [address] [place] [address] Dr. Nehemiah Vargas Protein [Mass/Vol] 6.5 g/dL Normal 6.4-8.2 [facility] Comment on above: Performed By: #### C SADIE VALLEJO, ETH #### [facility] [address] [address] [address] Nehemiah Vargas Sodium [Moles/Vol] 133 mmol/L Critically low 136-[address] [facility] Comment on above: Performed By: #### C SADIE VALLEJO, ETH #### [facility] [address] [place] [address] Dr. Nehemiah Vargas Urea nitrogen [Mass/Vol] 7.0 mg/dL Normal 7.0-18.0 [facility] Comment on above: Performed By: #### C SADIE VALLEJO, ETH #### [facility] [address] [place] [address] Dr. Nehemiah Vargas Urea nitrogen/Creatinine [Mass ratio] 9.0 mg/mg Normal [facility] Comment on above: Performed By: #### C SADIE VALLEJO, ETH #### [facility] [address] [place] [address] Dr. Nehemiah Vargas URINE MICROSCOPIC ONLYon BACTERIA NONE SEEN Normal NONE SEEN [facility] Comment on above: Performed By: #### C BC #### [facility] [address] [place] [address] Dr. Nehemiah Vargas Bacteria identified Cx Nom (U) NOT INDICATED Normal [facility] Comment on above: Performed By: #### C BC #### [facility] [address] [place] [address] Dr. Nehemiah Vargas CAST NONE SEEN Normal NONE SEEN [facility] Comment on above: Performed By: #### C BC #### [facility] [address] [place] [address] Dr. Nehemiah Vargas Crystals LM Nom (Urine sed) NONE SEEN Normal NONE SEEN [facility] Comment on above: Performed By: #### C BC #### [facility] [address] [place] [address] Dr. Nehemiah Vargas Epithelial cells LM Ql (Urine sed) NONE SEEN Normal NONE SEEN /RARE [facility] Comment on above: Performed By: #### C BC #### [facility] [address] [place] [address] Dr. Nehemiah Vargas MUCOUS TRACE Abnormal NONE SEEN [facility] Comment on above: Performed By: #### C BC #### [facility] [address] [place] [address] Dr. Nehemiah Vargas RBC NONE SEEN Abnormal 0-[address] [facility] Comment on above: Performed By: #### C BC #### [facility] [address] [place] [address] Dr. Nehemiah Vargas WBC 0-2 Abnormal NONE SEEN [facility] Comment on above: Performed By: #### C BC #### [facility] [address] [place] [address] Dr. Nehemiah Vargas CBC AUTO DIFFon 01-08-2022 BASO # 0.0 103/ul Normal 0.0-0.1 [facility] Comment on above: Performed By: #### C BC #### [facility] [address] [place] [address] Dr. Nehemiah Vargas Basophils/100 WBC (Bld) 0.3 % Normal 0.2-2.0 [facility] Comment on above: Performed By: #### C BC #### [facility] [address] [place] [address] Dr. Nehemiah Vargas EO # 0.1 103/ul Normal 0.0-0.[address] [facility] Comment on above: Performed By: #### C BC #### [facility] [address] [place] [address] Dr. Nehemiah Vargas Eosinophils/100 WBC (Bld) 1.3 % Normal 0.9-7.[address] [facility] Comment on above: Performed By: #### C BC #### [facility] [address] [place] [address] Dr. Nehemiah Vargas Erythrocyte distribution width (RBC) [Ratio] 12.6 % Normal 11.0-15.[address] [facility] Comment on above: Performed By: #### C BC #### [facility] [address] [place] [address] Dr. Nehemiah Vargas Hematocrit (Bld) [Volume fraction] 44.9 % Normal 42.0-54.0 [facility] Comment on above: Performed By: #### C BC #### [facility] [address] [place] [address] Dr. Nehemiah Vargas Hemoglobin (Bld) [Mass/Vol] 14.8 g/dL Normal 14.0-18.[address] [facility] Comment on above: Performed By: #### C BC #### [facility] [address] [place] [address] Dr. Nehemiah Vargas IG # 0.01 10e3/ul Normal 0.00-0.03 [facility] Comment on above: Performed By: #### C BC #### [facility] [address] [place] [address] Dr. Nehemiah Vargas IG % 0.1 % Normal 0.0-0.5 [facility] Comment on above: Performed By: #### C BC #### [facility] [address] [place] [address] Dr. Nehemiah Vargas LYMPH # 1.7 103/ul Normal 1.2-3.[address] [facility] Comment on above: Performed By: #### C BC #### [facility] [address] [place] [address] Dr. Nehemiah Vargas Lymphocytes/100 WBC (Bld) 25.0 % Normal 20.5-60.0 [facility] Comment on above: Performed By: #### C BC #### [facility] [address] [place] [address] Dr. Nehemiah Vargas MANUAL DIFF REQ NO Normal [facility] Comment on above: Performed By: #### C BC #### [facility] [address] [place] [address] Dr. Nehemiah Vargas MCH (RBC) [Entitic mass] 30.1 pg Normal 25.9-34.0 [facility] Comment on above: Performed By: #### C BC #### [facility] [address] [place] [address] Dr. Nehemiah Vargas MCHC (RBC) [Mass/Vol] 33.0 g/dL Normal 29.9-35.[address] [facility] Comment on above: Performed By: #### C BC #### [facility] [address] [place] [address] Dr. Nehemiah Vargas MCV (RBC) [Entitic vol] 91.4 fL Normal 80.0-94.[address] [facility] Comment on above: Performed By: #### C BC #### [facility] [address] [place] [address] Dr. Nehemiah Vargas MONO # 0.5 103/ul Normal 0.3-0.8 [facility] Comment on above: Performed By: #### C BC #### [facility] [address] [place] [address] Dr. Nehemiah Vargas Monocytes/100 WBC (Bld) 7.5 % Normal 1.7-12.0 [facility] Comment on above: Performed By: #### C BC #### [facility] [address] [place] [address] Dr. Nehemiah Vargas NEUT # 4.6 103/ul Normal 1.4-6.5 [facility] Comment on above: Performed By: #### C BC #### [facility] [address] [place] [address] Dr. Nehemiah Vargas Neutrophils/100 WBC (Bld) 65.8 % Normal 43.0-75.[address] [facility] Comment on above: Performed By: #### C BC #### [facility] [address] [place] [address] Dr. Nehemiah Vargas Platelet mean volume (Bld) [Entitic vol] 9.7 fL Normal 9.5-13.[address] [facility] Comment on above: Performed By: #### C BC #### [facility] [address] [place] [address] Dr. Nehemiah Vargas PLT 169 103/ul Normal 150-[address] [facility] Comment on above: Performed By: #### C BC #### [facility] [address] [place] [address] Dr. Nehemiah Vargas RBC 4.91 106/ul Normal 4.70-6.10 [facility] Comment on above: Performed By: #### C BC #### [facility] [address] [place] [address] Dr. Nehemiah Vargas WBC 6.9 103/ul Normal 4.0-11.0 [facility] Comment on above: Performed By: #### C BC #### [facility] [address] [place] [address] Dr. Nehemiah Vargas PROF CHEM 8 (BAS METB)on Anion gap [Moles/Vol] 14.5 mmol/L Normal [facility] Comment on above: Performed By: #### C BC #### [facility] [address] [place] [address] Dr. Nehemiah Vargas Calcium [Mass/Vol] 8.9 mg/dL Normal 8.5-10.1 [facility] Comment on above: Performed By: #### C BC #### [facility] [address] [place] [address] Dr. Nehemiah Vargas Chloride [Moles/Vol] 98 mmol/L Normal 98-107 [facility] Comment on above: Performed By: #### C BC #### [facility] [address] [place] [address] Dr. Nehemiah Vargas CO2 [Moles/Vol] 24.4 mmol/L Normal 21.0-32.0 [facility] Comment on above: Performed By: #### C BC #### [facility] [address] [place] [address] Dr. Nehemiah Vargas Creatinine [Mass/Vol] 0.88 mg/dL Normal 0.70-1.30 [facility] Comment on above: Performed By: #### C BC #### [facility] [address] [place] [address] Dr. Nehemiah Vargas EGFR-AF FINNISH >60 Normal >=60 [facility] Comment on above: Performed By: #### C BC #### [facility] [address] [place] [address] Dr. Nehemiah Vargas EGFR-NON AF FINNISH >60 Normal >=60 [facility] Comment on above: Performed By: #### C BC #### [facility] [address] [place] [address] Dr. Nehemiah Vargas Glucose [Mass/Vol] 152 mg/dL Critically high 74-106 T [facility] Comment on above: Performed By: #### C BC #### [facility] [address] [place] [address] Dr. Nehemiah Vargas Potassium [Moles/Vol] 3.9 mmol/L Normal 3.5-5.1 [facility] Comment on above: Performed By: #### C BC #### [facility] [address] [place] [address] Dr. Nehemiah Vargas Sodium [Moles/Vol] 133 mmol/L Critically low 136-145 [facility] Comment on above: Performed By: #### C BC #### [facility] [address] [place] [address] Dr. Nehemiah Vargas Urea nitrogen [Mass/Vol] 7.0 mg/dL Normal 7.0-18.0 [facility] Comment on above: Performed By: #### C BC #### [facility] [address] [place] [address] Dr. Nehemiah Vargas Urea nitrogen/Creatinine [Mass ratio] 8.0 mg/mg Normal [facility] Comment on above: Performed By: #### C BC #### [facility] [address] [place] [address] Dr. Nehemiah Vargas CBC AUTO DIFFon 12-15-2021 BASO # 0.1 103/ul Normal 0.0-0.1 [facility] Comment on above: Performed By: #### C BC #### [facility] [address] [place] [address] Dr. Nehemiah Vargas Basophils/100 WBC (Bld) 0.5 % Normal 0.2-2.0 [facility] Comment on above: Performed By: #### C BC #### [facility] [address] [place] [address] Dr. Nehemiah Vargas EO # 0.2 103/ul Normal 0.0-0.7 [facility] Comment on above: Performed By: #### C BC #### [facility] [address] [place] [address] Dr. Nehemiah Vargas Eosinophils/100 WBC (Bld) 1.5 % Normal 0.9-7.0 [facility] Comment on above: Performed By: #### C BC #### [facility] [address] [place] [address] Dr. Nehemiah Vargas Erythrocyte distribution width (RBC) [Ratio] 12.9 % Normal 11.0-15.0 [facility] Comment on above: Performed By: #### C BC #### [facility] [address] [place] [address] Dr. Nehemiah Vargas Hematocrit (Bld) [Volume fraction] 47.2 % Normal 42.0-54.0 [facility] Comment on above: Performed By: #### C BC #### [facility] [address] [place] [address] Dr. Nehemiah Vargas Hemoglobin (Bld) [Mass/Vol] 15.6 g/dL Normal 14.0-18.0 [facility] Comment on above: Performed By: #### C BC #### [facility] [address] [place] [address] Dr. Nehemiah Vargas IG # 0.02 10e3/ul Normal 0.00-0.03 [facility] Comment on above: Performed By: #### C BC #### [facility] [address] [place] [address] Dr. Nehemiah Vargas IG % 0.2 % Normal 0.0-0.[address] [facility] Comment on above: Performed By: #### C BC #### [facility] [address] [place] [address] Dr. Nehemiah Vargas LYMPH # 1.5 103/ul Normal 1.2-3.[address] [facility] Comment on above: Performed By: #### C BC #### [facility] [address] [place] [address] Dr. Nehemiah Vargas Lymphocytes/100 WBC (Bld) 13.4 % Critically low 20.5-60.0 [facility] Comment on above: Performed By: #### C BC #### [facility] [address] [place] [address] Dr. Nehemiah Vargas MANUAL DIFF REQ NO Normal [facility] Comment on above: Performed By: #### C BC #### [facility] [address] [place] [address] Dr. Nehemiah Vargas MCH (RBC) [Entitic mass] 30.2 pg Normal 25.9-34.0 [facility] Comment on above: Performed By: #### C BC #### [facility] [address] [place] [address] Dr. Nehemiah Vargas MCHC (RBC) [Mass/Vol] 33.1 g/dL Normal 29.9-35.[address] [facility] Comment on above: Performed By: #### C BC #### [facility] [address] [place] [address] Dr. Nehemiah Vargas MCV (RBC) [Entitic vol] 91.3 fL Normal 80.0-94.0 [facility] Comment on above: Performed By: #### C BC #### [facility] [address] [place] [address] Dr. Nehemiah Vargas MONO # 0.8 103/ul Normal 0.3-0.[address] [facility] Comment on above: Performed By: #### C BC #### [facility] [address] [place] [address] Dr. Nehemiah Vargas Monocytes/100 WBC (Bld) 7.2 % Normal 1.7-12.[address] [facility] Comment on above: Performed By: #### C BC #### [facility] [address] [place] [address] Dr. Nehemiah Vargas NEUT # 8.4 103/ul Critically high 1.4-6.5 [facility] Comment on above: Performed By: #### C BC #### [facility] [address] [place] [address] Dr. Nehemiah Vargas Neutrophils/100 WBC (Bld) 77.2 % Critically high 43.0-75.[address] [facility] Comment on above: Performed By: #### C BC #### [facility] [address] [place] [address] Dr. Nehemiah Vargas Platelet mean volume (Bld) [Entitic vol] 9.3 fL Critically low 9.5-13.5 [facility] Comment on above: Performed By: #### C BC #### [facility] [address] [place] [address] Dr. Nehemiah Vargas PLT 171 103/ul Normal 150-[address] [facility] Comment on above: Performed By: #### C BC #### [facility] [address] [place] [address] Dr. Nehemiah Vargas RBC 5.17 106/ul Normal 4.70-6.[address] [facility] Comment on above: Performed By: #### C BC #### [facility] [address] [place] [address] Dr. Nehemiah Vargas WBC 10.9 103/ul Normal 4.0-11.0 [facility] Comment on above: Performed By: #### C BC #### [facility] [address] [place] [address] Dr. Nehemiah Vargas PROF 14(COMP METB)on 022 Albumin [Mass/Vol] 3.6 g/dL Normal 3.4-5.0 [facility] Comment on above: Performed By: #### C BC #### [facility] [address] [place] [address] Dr. Nehemiah Vargas Albumin/Globulin [Mass ratio] 1.2 {ratio} Normal [facility] Comment on above: Performed By: #### C BC #### [facility] [address] [place] [address] Dr. Nehmeiah Vargas ALP [Catalytic activity/Vol] 105 U/L Normal 46-[address] [facility] Comment on above: Performed By: #### C BC #### [facility] [address] [place] [address] Dr. Nehemiah Vargas ALT [Catalytic activity/Vol] 21 U/L Normal 16-63 [facility] Comment on above: Performed By: #### C BC #### [facility] [address] [place] [address] Dr. Nehemiah Vargas Anion gap [Moles/Vol] 11.4 mmol/L Normal [facility] Comment on above: Performed By: #### C BC #### [facility] [address] [place] [address] Dr. Nehemiah Vargas AST [Catalytic activity/Vol] 18 U/L Normal 15-37 [facility] Comment on above: Performed By: #### C BC #### [facility] [address] [address] [address] Nehemiah Vargas Bilirubin [Mass/Vol] 0.4 mg/dL Normal 0.2-1.0 [facility] Comment on above: Performed By: #### C BC #### [facility] [address] [place] [address] Dr. Nehemiah Vargas Calcium [Mass/Vol] 8.2 mg/dL Critically low 8.5-10.1 [facility] Comment on above: Performed By: #### C BC #### [facility] [address] [place] [address] Dr. Nehemiah Vargas Chloride [Moles/Vol] 96 mmol/L Critically low 98-107 [facility] Comment on above: Performed By: #### C BC #### [facility] [address] [place] [address] Dr. Nehemiah Vargas CO2 [Moles/Vol] 28.5 mmol/L Normal 21.0-32.0 [facility] Comment on above: Performed By: #### C BC #### [facility] [address] [place] [address] Dr. Nehemiah Vargas Creatinine [Mass/Vol] 0.88 mg/dL Normal 0.70-1.30 [facility] Comment on above: Performed By: #### C BC #### [facility] [address] [place] [address] Dr. Nehemiah Vargas EGFR-AF FINNISH >60 Normal >=60 [facility] Comment on above: Performed By: #### C BC #### [facility] [address] [place] [address] Dr. Nehemiah Vargas EGFR-NON AF FINNISH >60 Normal >=[address] [facility] Comment on above: Performed By: #### C BC #### [facility] [address] [address] [address] Nehemiah Vargas Globulin (S) [Mass/Vol] 3.1 g/dL Normal [facility] Comment on above: Performed By: #### C BC #### [facility] [address] [address] [address] Nehemiah Vargas Glucose [Mass/Vol] 121 mg/dL Critically high 74-106 T [facility] Comment on above: Performed By: #### C BC #### [facility] [address] [address] [address] Nehemiah Vargas Potassium [Moles/Vol] 3.9 mmol/L Normal 3.5-5.1 [facility] Comment on above: Performed By: #### C BC #### [facility] [address] [address] [address] Nehemiah Vargas Protein [Mass/Vol] 6.7 g/dL Normal 6.1-8.2 [facility] Comment on above: Performed By: #### C BC #### [facility] [address] [address] [address] Nehemiah Vargas Sodium [Moles/Vol] 132 mmol/L Critically low 136-145 [facility] Comment on above: Performed By: #### C BC #### [facility] [address] [address] [address] Nehemiah Vargas Urea nitrogen [Mass/Vol] 8.0 mg/dL Normal 7.0-18.0 [facility] Comment on above: Performed By: #### C BC #### [facility] [id number] Nehemiah Vargas Urea nitrogen/Creatinine [Mass ratio] 9.1 mg/mg Normal [facility] Comment on above: Performed By: #### C BC #### [facility] [id number] Nehemiah Vargas Vital Signs Date Time Vital Sign Value Performing Clinician Facility 02-07-2025 10:25-0400 Body height 190.5 cm Carter Ortega MD Work Phone: [facility] 02-07-2025 10:25-0400 Body mass index (BMI) [Ratio] 21.62 kg/m2 Carter Ortega MD Work Phone: [facility] 02-07-2025 10:25-0400 Body temperature 97.5 [degF] Carter Ortega MD Work Phone: [facility] 02-07-2025 10:25-0400 Body weight 78.47 kg Carter Ortega MD Work Phone: [facility] 02-07-2025 10:25-0400 Diastolic blood pressure 68 mm[Hg] Carter Ortega MD Work Phone: [facility] 02-07-2025 10:25-0400 Heart rate 101 /min Carter Ortega MD Work Phone: [facility] 02-07-2025 10:25-0400 Respiratory rate 18 /min Carter Ortega MD Work Phone: [facility] 02-07-2025 10:25-0400 SaO2% (BldA) [Mass fraction] 98 % Carter Ortega MD Work Phone: [facility] 02-07-2025 10:25-0400 Systolic blood pressure 114 mm[Hg] Carter Ortega MD Work Phone: [facility] 12-31-2024 10:58-0400 Body height 190.5 cm Obey Lowe PA Work Phone: [facility] 12-31-2024 10:58-0400 Body mass index (BMI) [Ratio] 21.62 kg/m2 Obey Lowe PA Work Phone: [facility] 12-31-2024 10:58-0400 Body weight 78.47 kg Obey Lowe PA Work Phone: [facility] 12-31-2024 10:58-0400 Diastolic blood pressure 84 mm[Hg] Obey Lowe PA Work Phone: [facility] 12-31-2024 10:58-0400 Systolic blood pressure 122 mm[Hg] Obey Lowe PA Work Phone: [facility] 12-11-2024 09:45-0400 Body weight 78.5 kg Shaikh Landen DIETRICH Work Phone: [facility] 08-27-2024 14:48-0500 Body height 190.5 cm Obey Lowe PA Work Phone: [facility] 08-27-2024 14:48-0500 Body mass index (BMI) [Ratio] 21.62 kg/m2 Obey Lowe PA Work Phone: [facility] 08-27-2024 14:48-0500 Body weight 78.47 kg Obey Lowe PA Work Phone: [facility] 08-27-2024 14:48-0500 Diastolic blood pressure 80 mm[Hg] Obey Lowe PA Work Phone: [facility] 08-27-2024 14:48-0500 Systolic blood pressure 120 mm[Hg] Obey Lowe PA Work Phone: [facility] 06-20-2024 09:31-0400 Body height 190.5 cm Clemencia Hernandez ALTERATION [employer] Work Phone: [facility] 06-20-2024 09:31-0400 Body mass index (BMI) [Ratio] 20.55 kg/m2 Clemencia Hernandez [employer] Work Phone: [facility] 06-20-2024 09:31-0400 Body temperature 96.01 [degF] Clemencia Hernandez [employer] Work Phone: [facility] 06-20-2024 09:31-0400 Body weight 74.57 kg Clemencia Hernandez [employer] Work Phone: [facility] 06-20-2024 09:31-0400 Diastolic blood pressure 62 mm[Hg] Clemencia Hernandez [employer] Work Phone: [facility] 06-20-2024 09:31-0400 Heart rate 77 /min Clemencia Hernandez [employer] Work Phone: [facility] 06-20-2024 09:31-0400 Respiratory rate 16 /min Clemencia Hernandez [employer] Work Phone: [facility] 06-20-2024 09:31-0400 SaO2% (BldA) [Mass fraction] 97 % Clemencia Hernandez [employer] Work Phone: [facility] 06-20-2024 09:31-0400 Systolic blood pressure 120 mm[Hg] Clemencia Hernandez [employer] Work Phone: [facility] 05-09-2024 13:01-0400 Body height 190.5 cm Clemencia Hernandez [employer] Work Phone: [facility] 05-09-2024 13:01-0400 Body mass index (BMI) [Ratio] 19.5 kg/m2 Clemencia Hernandez [employer] Work Phone: [facility] 05-09-2024 13:01-0400 Body temperature 98.4 [degF] Clemencia Hernandez [employer] Work Phone: [facility] 05-09-2024 13:01-0400 Body weight 70.76 kg Clemencia Hernandez [employer] Work Phone: [facility] 05-09-2024 13:01-0400 Diastolic blood pressure 84 mm[Hg] Clemencia Hernandez [employer] Work Phone: [facility] Comment on above: RT ARM 108/88 [employer] 05-09-2024 13:01-0400 Heart rate 124 /min Clemencia Hernandez [employer] Work Phone: [facility] Comment on above: 97% O2 05-09-2024 13:01-0400 Systolic blood pressure 104 mm[Hg] Clemencia Hernandez [employer] Work Phone: [facility] Comment on above: RT ARM 108/88 [employer] 04-24-2024 11:12-0400 Body height 190.5 cm Vanda Sunshine PA Work Phone: [facility] 04-24-2024 11:12-0400 Body mass index (BMI) [Ratio] 20.62 kg/m2 Vandaviv Sunshine PA Work Phone: [facility] 04-24-2024 11:12-0400 Body weight 74.84 kg Vandaviv Sunshine PA Work Phone: [facility] 04-24-2024 11:12-0400 Diastolic blood pressure 82 mm[Hg] Vanda Sunshine PA Work Phone: [facility] 04-24-2024 11:12-0400 Heart rate 87 /min Vanda Sunshine PA Work Phone: [facility] 04-24-2024 11:12-0400 Respiratory rate 16 /min Vanda Sunshine PA Work Phone: [facility] 04-24-2024 11:12-0400 SaO2% (BldA) [Mass fraction] 97 % Vanda Sunshine PA Work Phone: [facility] 04-24-2024 11:12-0400 Systolic blood pressure 132 mm[Hg] Vanda Sunshine PA Work Phone: [facility] 12-13-2023 10:20-0400 Body height 190.5 cm MD Shaikh Schuster Work Phone: [facility] 12-13-2023 10:20-0400 Body mass index (BMI) [Ratio] 20.3 kg/m2 MD Shaikh Schuster Work Phone: [facility] 12-13-2023 10:20-0400 Body weight 73.93 kg MD Shaikh Schuster Work Phone: [facility] 12-01-2023 14:25-0400 Diastolic blood pressure 99 mm[Hg] MD Shaikh Schuster Work Phone: [facility] 12-01-2023 14:25-0400 Heart rate 77 /min MD Shaikh Schuster Work Phone: [facility] 12-01-2023 14:25-0400 Systolic blood pressure 129 mm[Hg] MD Shaikh Schuster Work Phone: [facility] 12-01-2023 09:10-0400 Respiratory rate 18 /min MD Shaikh Schuster Work Phone: [facility] 12-01-2023 09:10-0400 SaO2% (BldA) [Mass fraction] 98 % MD Shaikh Schuster Work Phone: [facility] 06-20-2023 10:10-0400 Body height 190.5 cm MD Shaikh Schuster Work Phone: [facility] 06-20-2023 10:10-0400 Body weight 68.03 kg MD Shaikh Schuster Work Phone: [facility] 12-01-2021 11:20-0400 Body height 185.42 cm Js May Other [facility] Other 12-01-2021 11:20-0400 Body mass index (BMI) [Ratio] 21.77 kg/m2 Js May Other [facility] Other 12-01-2021 11:20-0400 Body weight 74.84 kg Js May Other [facility] Other 10-09-2021 08:25-0500 Body height 190.5 cm MD Shaikh Schuster Work Phone: [facility] 10-09-2021 08:25-0500 Body weight 72.57 kg MD Shaikh Schuster Work Phone: [facility] 06-02-2021 12:20-0400 Body height 185.42 cm Js May Other [facility] Other 06-02-2021 12:20-0400 Body mass index (BMI) [Ratio] 21.77 kg/m2 Js May Other [facility] Other 06-02-2021 12:20-0400 Body weight 74.84 kg Js May Other [facility] Other 06-02-2021 12:20-0400 Diastolic blood pressure 82 mm[Hg] Js May Other [facility] Other 06-02-2021 12:20-0400 Systolic blood pressure 138 mm[Hg] Js May Other [facility] Other Encounters Encounter Date Encounter Type Care Provider Facility Start: 02-07-2025 End: 02-07-2025 Bamboo flowsheet Carter Ortega MD Work Phone: [facility] Start: 02-07-2025 End: 02-07-2025 Bamboo flowsheet Carter Ortega MD Work Phone: [facility] Start: 02-07-2025 End: 02-07-2025 Patient encounter procedure Carter Ortega MD Work Phone: [facility] Start: 02-07-2025 End: 02-07-2025 Periodic preventive med est patient 40-64yrs Carter Ortega MD Work Phone: [facility] Comment on above: Annual wellness visi t (Primary Dx); Colon cancer screening; MDD (major depressive disorder), recurrent episode, mild ; Multiple sclerosis, relapsing-remitting (HCC); Nondependent abuse of drugs (CMS-HCC) Start: 02-02-2025 End: 02-02-2025 ambulatory Carter Ortega Facility:[facility] Start: 01-01-2025 End: 01-01-2025 Clinisync Result Encounter Obey Lopez PA Work Phone: [facility] Unsolicited Start: 01-01-2025 End: 01-01-2025 Clinisync Result Encounter Obey Oteroe PA Work Phone: [facility] Unsolicited Start: 12-31-2024 End: 12-31-2024 Bamboo flowsheet Obey Lowe PA Work Phone: [facility] Start: 12-31-2024 End: 12-31-2024 Bamboo flowsheet Obey Lowe PA Work Phone: [facility] Start: 12-31-2024 End: 01-15-2025 Telephone encounter Obey Lowe PA Work Phone: [facility] Start: 12-31-2024 End: 12-31-2024 Office outpatient visit 25 minutes Obey Lowe PA Work Phone: [facility] Comment on above: Multiple sclerosis ( CMS/HCC) (Primary Dx); Lumbar radiculopathy; Chronic bilateral low back pain, unspecified whether sciatica present; Degeneration of intervertebral disc of lumbar region with discogenic back pain and lower extremity pain; Fatigue, unspecified type; Left leg weakness Start: 12-31-2024 End: 12-31-2024 ambulatory OBEY JACKIE Not Available Start: 12-11-2024 End: 12-11-2024 ambulatory Shaikh Landen DIETRICH Work Phone: [facility] Work Phone: Start: 12-11-2024 End: 12-11-2024 Patient encounter procedure Shaikh Landen DIETRICH Work Phone: [facility] Work Phone: Start: 12-03-2024 End: 12-03-2024 Patient encounter procedure Shaikh Landen DIETRICH Work Phone: [facility] Work Phone: Start: 12-03-2024 End: 12-03-2024 ambulatory Shaikh Landen DIETRICH Work Phone: [facility] Work Phone: Start: 08-27-2024 End: 08-27-2024 ambulatory OBEY OTEROViv Not Available Start: 08-27-2024 End: 08-27-2024 Office outpatient visit 15 minutes Obey Lopez PA Work Phone: [facility] Comment on above: Multiple sclerosis ( CMS/HCC) (Primary Dx); Cervical radiculopathy; Fatigue, unspecified type; Neck pain; Malaise and fatigue Start: 08-27-2024 End: 08-27-2024 Bamboo flowsheet Obey Oteroe PA Work Phone: [facility] Start: 08-27-2024 End: 08-27-2024 Bamboo flowsheet Obey Lowe PA Work Phone: [facility] Start: 08-16-2024 End: 08-18-2024 Refill Clemencia Hernandez [employer] Work Phone: [facility] Comment on above: Lumbar radiculopathy ; CHARLES (generalized anxiety disorder) (CMS/HCC) Start: 06-20-2024 End: 06-20-2024 Bamboo flowsheet Clemencia Hernandez [employer] Work Phone: [facility] Start: 06-20-2024 End: 06-20-2024 Bamboo flowsheet Clemencia Hernandez [employer] Work Phone: [facility] Start: 06-20-2024 End: 06-20-2024 Patient encounter status Clemencia Hernandez [employer] Work Phone: [facility] Start: 06-20-2024 End: 06-20-2024 Periodic preventive med est patient 40-64yrs Clemencia Hernandez [employer] Work Phone: [facility] Comment on above: Primary insomnia (Pr imary Dx); Psychophysiological insomnia; Encounter for wellness examination in adult; Need for immunization against influenza Start: 06-20-2024 End: 06-20-2024 ambulatory CLEMENCIA SINGLETARYTRICK Not Available Start: 05-17-2024 End: 05-17-2024 Clinisync Result Encounter Generic External Data Provider [facility] Unsolicited Start: 05-17-2024 End: 05-17-2024 Clinisync Result Encounter Generic External Data Provider [facility] Unsolicited Start: 05-17-2024 End: 05-17-2024 Orders Only Clemencia Hernandez [employer] Work Phone: [facility] Comment on above: Encounter for wellne ss examination in adult (Primary Dx) Start: 05-17-2024 End: 05-17-2024 Patient encounter status Clemencia Hernandez [employer] Work Phone: [facility] Start: 05-09-2024 End: 05-09-2024 Bamboo flowsheet Clemencia Singletarytrick [employer] Work Phone: [facility] Start: 05-09-2024 End: 05-09-2024 Bamboo flowsheet Clemencia Hernandez [employer] Work Phone: [facility] Start: 05-09-2024 End: 05-09-2024 Office outpatient visit 15 minutes Clemencia Hernandez [employer] Work Phone: [facility] Comment on above: Acute pain of left s houlder (Primary Dx); Psychophysiological insomnia; CHARLES (generalized anxiety disorder) (CMS/HCC); Lumbar radiculopathy; Other psychoactive substance abuse, uncomplicated (CMS/HCC) Start: 05-09-2024 End: 05-09-2024 ambulatory CLEMENCIA SINGLETARYTRICK Not Available Start: 04-24-2024 End: 04-24-2024 Office outpatient visit 25 minutes Vanda MOYA Work Phone: [facility] Comment on above: Multiple sclerosis ( CMS/HCC) (Primary Dx); Fatigue, unspecified type; Left leg weakness; Cervical radiculopathy; Neck pain; Degenerative disc disease, lumbar; Chronic bilateral low back pain, unspecified whether sciatica present; Lumbar radiculopathy Start: 04-24-2024 End: 04-24-2024 ambulatory VANDA SUNSHINE Not Available Start: 03-21-2024 End: 03-21-2024 Patient encounter procedure MD Shaikh Schuster Work Phone: [facility] [place] Work Phone: Start: 03-21-2024 End: 03-21-2024 ambulatory MD Shaikh Schuster Work Phone: [facility] Work Phone: Start: 02-27-2024 End: 02-27-2024 ambulatory VANDA SUNSHINE Not Available Start: 12-13-2023 End: 12-13-2023 ambulatory MD Shaikh Schuster Work Phone: [facility] Work Phone: Start: 12-13-2023 End: 12-13-2023 Patient encounter procedure MD Shaikh Schuster Work Phone: [facility] Work Phone: Start: 12-12-2023 End: 12-12-2023 ambulatory MD Shaikh Schuster Work Phone: [facility] Work Phone: Start: 12-12-2023 End: 12-12-2023 Patient encounter procedure MD Shaikh Schuster Work Phone: [facility] [place] Work Phone: Start: 12-01-2023 Registered Recurring MD Shaikh Schuster Work Phone: [facility] Work Phone: Start: 06-20-2023 End: 06-20-2023 ambulatory MD Shaikh Schuster Work Phone: [facility] Work Phone: Start: 06-20-2023 End: 06-20-2023 Patient encounter procedure MD Shaikh Schuster Work Phone: [facility] [place] Work Phone: Start: 11-29-2022 End: 11-29-2022 ambulatory MD Shaikh Schuster Work Phone: [facility] Work Phone: Start: 11-29-2022 End: 11-29-2022 Patient encounter procedure MD Shaikh Schuster Work Phone: [facility] [place] Work Phone: Start: 09-16-2022 End: 09-17-2022 ambulatory OBEY LOPEZ Facility:[facility] Start: 04-08-2022 End: 04-09-2022 ambulatory VAL MUNOZ Facility:[facility] Start: 02-04-2022 End: 02-06-2022 ambulatory [...] encounter procedure MD Shaikh Schuster Work Phone: [facility] [address] Start: 12-15-2021 End: 12-16-[address] IZZY VERGARA Facility:[facility] Start: 12-01-2021 End: 12-01-2021 ambulatory Js May Other [facility] [employer] Other Start: 12-01-2021 Office outpatient vi sit 25 minutes Js May [facility] Start: 11-19-2021 End: 11-19-2021 Patient encounter procedure MD Shaikh Schuster Work Phone: [facility] [place] Start: 10-15-2021 End: 10-16-[address] IZZY VERGARA Facility: Start: 10-09-2021 End: 10-09-2021 Patient encounter procedure MD Shaikh Schuster Work Phone: [facility] Start: 06-02-2021 Office outpatient vi sit 15 minutes Js May [facility] Start: 06-02-2021 Telephone encounter Js May [facility] Procedures Date Procedure Procedure Detail Performing Clinician Start: 01-01-2025 ALL CBC WITH AUTO DIFF Obey MOYA Work Phone: Start: 12-03-2024 X-ray of lumbar spin e, four views Shaikh Landen DIETRICH Work Phone: Start: 05-17-2024 ALL CBC WITH AUTO DIFF Generic External Data Provider Start: 12-12-2023 X-ray of lumbar spin e, [...] head MD Shaikh Schuster Work Phone: Start: 03-31-2022 X-ray of lumbar spin e, four views MD Shaikh Schuster Work Phone: Start: 10-09-2021 XR pre/post mri xray MD Shaikh Schuster Work Phone: Start: 10-09-2021 MRI of thoracic spin e with contrast MD Shaikh Schuster Work Phone: Start: 10-09-2021 MRI of cervical spin e with contrast MD Shaikh Schuster Work Phone: Plan of Treatment Date Care Activity Detail Author Start: 08-19-2025 End: 08-19-2025 Patient encounter procedure 08/19/2025 9:45 AM EST [facility] [address] [place] [address] Carter Ortega MD [address] [place] [address] [facility] Start: 04-03-2025 End: 04-03-2025 Patient encounter procedure 04/03/2025 10:00 AM EDT Office Visit [facility] [address] [place] [address] Val Munoz MD [address] [place] [address] [facility] Start: 02-07-2025 End: 02-07-2026 Basic metabolic 1998 panel - Serum or Plasma Basic metabolic panel Lab Routine Annual wellness visit Expected: 02/07/2025 (Approximate), Expires: 02/07/2026 [facility] Comment on above: Expected: 02/07/2025 (Approximate), Expires: 02/07/2026 Start: 02-07-2025 End: 02-07-2026 CBC W Auto Differential panel - Blood CBC and differential Lab Routine Annual wellness visit Expected: 02/07/2025 (Approximate), Expires: 02/07/2026 [facility] Comment on above: Expected: 02/07/2025 (Approximate), Expires: 02/07/2026 Start: 02-07-2025 End: 02-07-2026 Hemoglobin A1c/Hemoglobin.total in Blood Hemoglobin A1c Lab Routine Annual wellness visit Expected: 02/07/2025 (Approximate), Expires: 02/07/2026 [facility] Work Phone: Comment on above: Expected: 02/07/2025 (Approximate), Expires: 02/07/2026 Start: 02-07-2025 End: 02-07-2026 Hepatic function 2000 panel - Serum or Plasma Hepatic function panel Lab Routine Annual wellness visit Expected: 02/07/2025 (Approximate), Expires: 02/07/2026 [facility] Comment on above: Expected: 02/07/2025 (Approximate), Expires: 02/07/2026 Start: 02-07-2025 End: 02-07-2026 Lipid 1996 panel - Serum or Plasma Lipid panel Lab Routine Annual wellness visit Expected: 02/07/2025 (Approximate), Expires: 02/07/2026 [facility] Comment on above: Expected: 02/07/2025 (Approximate), Expires: 02/07/2026 Start: 02-07-2025 End: 02-07-2026 Prostate specific Ag [Mass/volume] in Serum or Plasma PSA Lab Routine Annual wellness visit Expected: 02/07/2025 (Approximate), Expires: 02/07/2026 [facility] Comment on above: Expected: 02/07/2025 (Approximate), Expires: 02/07/2026 Start: 02-07-2025 End: 02-07-2026 Thyrotropin [Units/volume] in Serum or Plasma TSH Lab Routine Annual wellness visit Expected: 02/07/2025 (Approximate), Expires: 02/07/2026 [facility] Comment on above: Expected: 02/07/2025 (Approximate), Expires: 02/07/2026 Start: 02-07-2025 End: 02-07-2025 Patient encounter procedure [facility] Comment on above: Arrived Start: 12-31-2024 End: 12-31-2025 CBC W Auto Differential panel - Blood CBC and differential Lab Routine Multiple sclerosis (CMS/HCC) Expected: 12/31/2024 (Approximate), Expires: 12/31/2025 [facility] Work Phone: Comment on above: Expected: 12/31/2024 (Approximate), Expires: 12/31/2025 Start: 12-31-2024 End: 12-31-2025 Comprehensive metabolic 2000 panel - Serum or Plasma Comprehensive metabolic panel Lab Routine Multiple sclerosis ([facility]) Expected: 12/31/2024 (Approximate), Expires: 12/31/2025 [facility] Comment on above: Expected: 12/31/2024 (Approximate), Expires: 12/31/2025 Start: 12-31-2024 End: 12-31-2025 IgG [Mass/volume] in Serum or Plasma IgG Lab Routine Multiple sclerosis ([facility]) Expected: 12/31/2024 (Approximate), Expires: 12/31/2025 [facility] Comment on above: Expected: 12/31/2024 (Approximate), Expires: 12/31/2025 Start: 12-31-2024 End: 12-31-2024 Patient encounter procedure [facility] Comment on above: Arrived Start: 12-19-2024 End: 12-19-2024 Patient encounter procedure 12/19/2024 2:00 PM EDT Office Visit [facility] [address] [place] [address] Clemencia Hernandez, MANOJ [address] [place] [address] [facility] Start: 12-11-2024 Patient referral [facility] Work Phone: Start: 07-18-2024 End: 07-18-2024 Patient encounter procedure 07/18/2024 9:40 AM EST Office Visit [facility] [address] [place] [id number] Obey Lopez PA [address] [place] [address] [facility] Start: 06-20-2024 End: 06-20-2024 Patient encounter procedure 06/20/2024 9:30 AM EDT Office Visit [facility] [address] [place] [address] Clemencia Hernandez, ALTERATION HAND [address] [place] [address] [facility] Start: 05-17-2024 End: 05-17-2025 CBC W Auto Differential panel - Blood CBC and differential Lab Routine Encounter for wellness examination in adult Expected: 05/17/2024 (Approximate), Expires: 05/17/2025 [facility] Comment on above: Expected: 05/17/2024 (Approximate), Expires: 05/17/2025 Start: 05-17-2024 End: 05-17-2025 Comprehensive metabolic 2000 panel - Serum or Plasma Comprehensive metabolic panel Lab Routine Encounter for wellness examination in adult Expected: 05/17/2024 (Approximate), Expires: 05/17/2025 [facility] Comment on above: Expected: 05/17/2024 (Approximate), Expires: 05/17/2025 Start: 05-17-2024 End: 05-17-2025 Hemoglobin A1c/Hemoglobin.total in Blood Hemoglobin A1c Lab Routine Encounter for wellness examination in adult Expected: 05/17/2024 (Approximate), Expires: 05/17/2025 [facility] Comment on above: Expected: 05/17/2024 (Approximate), Expires: 05/17/2025 Start: 05-17-2024 End: 05-17-2025 Lipid 1996 panel - Serum or Plasma Lipid panel Lab Routine Encounter for wellness examination in adult Expected: 05/17/2024 (Approximate), Expires: 05/17/2025 [facility] Comment on above: Expected: 05/17/2024 (Approximate), Expires: 05/17/2025 Start: 05-17-2024 End: 05-17-2025 TSH W/REFLEX TO FT4 TSH W/REFLEX TO FT4 Lab Routine Encounter for wellness examination in adult Expected: 05/17/2024 (Approximate), Expires: 05/17/2025 [facility] Work Phone: Comment on above: Expected: 05/17/2024 (Approximate), Expires: 05/17/2025 Start: 05-09-2024 End: 05-09-2024 Patient encounter procedure 05/09/2024 1:00 PM EDT Office Visit [facility] [address] [place] [address] Clemencia Hernandez, MANOJ [address] [place] [address] Arrived [facility] Comment on above: Arrived Start: 05-07-2024 End: 05-07-2024 Patient encounter procedure 05/07/2024 10:30 AM EDT [facility] [address] [place] [address] Clemencia Hernandez, MANOJ [address] [place] [address] [facility] Start: 04-22-2024 Influenza vaccination Influenza Vacc ine (#1) [facility] Start: 03-21-2024 MR Unspecified body region [facility] Start: 03-21-2024 MRI of head MR head/brain wo/w con [facility] Start: 1979 Screening for malign ant neoplasm of colon [facility] Patient referral [facility] Work Phone: Immunizations Immunization Date Immunization Notes Care Provider Fa cili 06-20-2024 influenza, seasonal, injectable, preservative free Clemencia Hernandez NP Work Phone: [facility] 05-13-2020 Influenza, injectabl e, Madin Callahan Canine Kidney, quadrivalent with preservative Vanda MOYA Work Phone: [facility] 05-13-2020 tetanus toxoid, redu arron diphtheria toxoid, and acellular pertussis vaccine, adsorbed Vanda MOYA Work Phone: [facility] 05-13-2020 influenza virus vaccine, unspecified formulation Vanda MOYA Work Phone: [facility] Payers Date Payer Category Payer Medicaid [employer] [place] [id number] 2022-Present [address] [place] [address] [id number] 2022 Private Health Insurance [facility] MEDICAID [id number] 2022 Medicaid [id number] 1979 Unknown [id number] 1979 Unknown [id number] 1979 Unknown [id number] 1979 Unknown [id number] 1979 Unknown [id number] 1979 Unknown [id number] 1979 Unknown [id number] 593 1979 Unknown [id number] 1980 Unknown [id number]. 593 1980 Unknown [id number]. 593 1979 Unknown [id number]. 1259 1979 Unknown [id number]. 1259 1979 Unknown [id number]. 1259 1979 Unknown [id number] [id number]. 1259 1979 Unknown [id number]. 9 1979 Unknown [id number] [id number]. 1259 1959 Unknown [id number] Self-pay Self Pay [id number] Social History Date Type Detail Facility Start: 12-01-2020 End: 05-09-2024 Tobacco smoking status LAIS Ex-smoker (finding) [facility] Start: 1980 Sex Assigned At Male F [facility] Start: 07-22-2023 End: 05-09-2024 Sex Assigned At [facility] End: 03-22-2017 History of tobacco use Current smoker [facility] End: 03-22-2017 History of tobacco use Cigarette Smoker [facility] Start: 02-27-2024 End: 05-09-2024 Tobacco use and exposure Smokeless tobacco non-user [facility] Start: 05-09-2024 End: 02-07-2025 Alcoholic beverage intake Lifetime non-drinker (finding) [facility] Start: 07-22-2023 End: 05-09-2024 History of Social function [facility] How often to you hav e a drink containing alcohol? Monthly or less [facility] How many standard drinks containing alcohol do you have on a typical day? 1 or 2 [facility] How often do you hav e 6 or more drinks on 1 occasion? Less than monthly [facility] Start: 07-22-2023 Alcohol Comment caffeine: more than 4 cups per day [facility] Start: 1980 Sex assigned at Not on file [facility] Start: 02-27-2024 Tobacco smoking stat [facility] Smokes tobacco daily [facility] Start: 12-04-2024 End: 12-11-2024 Sex Male (finding) [facility] Medical Equipment Procedure Code Equipment Code Equipment [...] FDA Start: 11-09-2017 Spinal fusion graft kit [id number] FDA Start: 12-01-2020 Bone-screw internal spinal fixation system, non-sterile [id number] FDA Start: 12-01-2020 Bone-screw internal spinal fixation system, non-sterile [id number] FDA Start: 12-01-2020 Polymeric spinal fusion cage, non-sterile [id number] FDA Start: 12-01-2020 Bone-screw internal spinal fixation system, non-sterile [id number] FDA Start: 12-01-2020 Clinical Notes 06-02-2021 to 02-07-2025 Carter Ortega MD - 02/07/2025 11:16 AM Bryan Ortega MD - 02/07/2025 11:16 AM Bryan Ortega MD - 02/07/2025 11:15 AM Bryan Ortega MD - 02/07/2025 10:15 AM EDTPatient Instructions Note Date & Type Note Facility 02-07-2025 History of Presen t illness Narrative Associated Problem(s): Multiple sclerosis, relapsing-remitting (HCC) Follow with neurology. Associated Problem(s): MDD (major depressive disorder), recurrent episode, mild Symptoms controlled with seroquel and continue. Associated Problem(s): Annual wellness visit Due for labs. Discussed proper diet and regular aerobic exercise. Need aerobic exercise 5-6 days a week for 30 minutes at a time. Smaller portions and limit total calories. Never had colon cancer screening and refer to surgeon. Tetanus every 10 years. Advised not to smoke. Images from the original note were not included. Subjective Patient ID: Alexis Negrete is a 44 y.o. male who presents for Follow-up (6m). Presents for annual PE. Weight up 20 pounds since fall but previously had lost a lot of weight. Tries to stay active but very unsteady due to MS. Tries to eat well and increase fruits and vegetables. Due for labs. Sleeping well with seroquel and depression controlled. MS stable and follows with neurology. Review of Systems Constitutional: Negative for fatigue. Respiratory: Negative for cough, shortness of breath and wheezing. Cardiovascular: Negative for chest pain and palpitations. Gastrointestinal: Negative for abdominal pain, diarrhea, nausea and vomiting. Genitourinary: Negative for dysuria. Objective Physical Exam Constitutional: General: He is not in acute distress. Appearance: Normal appearance. HENT: Head: Normocephalic. Right Ear: Tympanic membrane and ear canal normal. Left Ear: Tympanic membrane and ear canal normal. Eyes: Extraocular Movements: Extraocular movements intact. Pupils: Pupils are equal, round, and reactive to light. Cardiovascular: Rate and Rhythm: Normal rate and regular rhythm. Heart sounds: No murmur heard. No friction rub. No gallop. Pulmonary: Breath sounds: Normal breath sounds. No wheezing, rhonchi or rales. Abdominal: General: Bowel sounds are normal. There is no distension. Palpations: Abdomen is soft. Tenderness: There is no abdominal tenderness. There is no guarding or rebound. Musculoskeletal: General: Normal range of motion. Left lower leg: No edema. Neurological: General: No focal deficit present. Mental Status: He is alert. Cranial Nerves: No cranial nerve deficit. Deep Tendon Reflexes: Reflexes normal. Assessment/Plan Problem List Items Addressed This Visit Multiple sclerosis, relapsing-remitting (HCC) Follow with neurology. MDD (major depressive disorder), recurrent episode, mild Symptoms controlled with seroquel and continue. Annual wellness visit - Primary Due for labs. Discussed proper diet and regular aerobic exercise. Need aerobic exercise 5-6 days a week for 30 minutes at a time. Smaller portions and limit total calories. Never had colon cancer screening and refer to surgeon. Tetanus every 10 years. Advised not to smoke. Relevant Orders Hemoglobin A1c Basic metabolic panel CBC and differential Hepatic function panel Lipid panel PSA TSH Other Visit Diagnoses Colon cancer screening Relevant Orders Ambulatory referral to General Surgery documented in this encounter [facility] 12-31-2024 Telephone encount er Note This patient has worsening symptoms prior to his next infusion and can we please change the order to [facility] to having Ocrevus to every 5 months instead of 6? Thanks! [facility] 12-31-2024 Miscellaneous Notes Formattin g of this note might be different from the original. This patient has worsening symptoms prior to his next infusion and can we please change the order to [facility] to having Ocrevus to every 5 months instead of 6? Thanks! documented in this encounter [facility] 12-31-2024 History of Presen t illness Narrative Images from the original note were not included. Subjective Alexis Negrete is a 44 y.o. year old male No chief complaint on file. Past Medical History: Diagnosis Date Abnormal thyroid screen (blood) Adjustment reaction with anxiety and depression (CMS/HCC) Continue seroquel HS, continue cymbalta 60mg daily am, Add 30mg HS At high risk for falls Cervical radiculopathy Chronic bilateral low back pain with left-sided sciatica Explained to patient he must obtain all narcotic pain medication from pain management. Follow up Pain management, neurology as scheduled. Continue gabapentin as ordered. DDD (degenerative disc disease), lumbar Degenerative disc disease, cervical MRI - [facility] Depression (CMS/HCC) Displacement of lumbar intervertebral disc without myelopathy Dorsalgia Frequent headaches Monitor, reported to neurologist t Oct 11. Encourage to keep headache journal. History of lumbar surgery 07/2015 Lumbarectomy History of medical problems pt has one kidney HTN (hypertension) (CMS/HCC) Above goal. On Toprol for it. Hyponatremia Insomnia, persistent Left-sided weakness Weakness, blurred vision, continues. MRI reveals acute demyelinating process. Weight loss.Increase gabapentin rx, pt reports taking 600mg TID. Leukocytosis Low serum thyroid stimulating hormone (TSH) Lumbar radiculopathy Lumbar spondylosis 07/02/2015 Lumbosacral radiculopathy MS (multiple sclerosis) (CMS/HCC) MS with persistent LLE and LUE weakness. Opioid use Patient has had 3 ER visits for Opioid overdose. Reports using Heroine and prescriptions drugs to deal with depression and anxiety. Started using 8 months ago. Claims no prior hx of drug use. He reports that he realized that this was a mistake and is not currently using anything. He did not use IV drugs and currently denies craving/withdrawal symptoms Renal agenesis Right-sided chest wall pain He reports he has noticed right side chest wall pain x 2-3 months, that is pleuritic in nature. He has previous hx of PTX and had chest tube aver 10 years ago Denies cough, fever,SOB. Spinal stenosis of lumbar region with radiculopathy 07/02/2015 Sprain of left ankle, initial encounter Tobacco user Quit successfully with Chantix in 2018. Started to smoke again last year at the end of 2019 Now smoking pack a day. Helps him cope with stress and anxiety. Insurance previously did not cover Nicotine patches. Wellbutrin made him irritable/had mood instability with it Underweight Vitamin D deficiency Wheezing without diagnosis of asthma Past Surgical History: Procedure Laterality Date BACK SURGERY 07/21/2017 LUMBAR DISCECTOMY 07/2015 Dr. May LUMBAR DISCECTOMY Right 2014 Dr. May LUMBAR DISCECTOMY Left 2018 Dr. May PLEURAL SCARIFICATION 07/21/2017 SPINE SURGERY 11/09/2017 Diskectomy- Dr. May Family History Problem Relation Name Age of Onset Mental illness Mother Parkinsonism Mother Other (Degenerative disc disease) Mother Hyperlipidemia Father Hypertension Father Heart disease Maternal Grandmother Heart disease Paternal Grandmother Cancer Paternal Grandfather Thyroid disease Other Social History Tobacco Use Smoking status: Former Current packs/day: 0.00 Types: Cigarettes Quit date: 03/2017 Years since quittin.7 Smokeless tobacco: Never Substance Use Topics Alcohol use: Never Comment: caffeine: more than 4 cups per day Medication Documentation Review Audit Reviewed by Eric Buitrago MA (Assurance Officer) on 12/31/24 at 1100 Medication Order Taking? Sig Documenting Provider Last Dose Status albuterol HFA 90 mcg/act inhaler [id number] Yes Inhale 2 puffs every 4 (four) hours if needed for wheezing Shaikh Landen MD Active busPIRone (Buspar) 10 MG tablet [id number] Yes TAKE 1 TABLET (10 MG) BY MOUTH IN THE MORNING AND BEFORE BEDTIME Carter Ortega MD Active DULoxetine (Cymbalta) [address] capsule [id number] Yes TAKE 1 CAPSULE BY MOUTH EVERY DAY Clemencia Hernandez NP Active ergocalciferol (Vitamin D2) 1.25 MG (77333 UT) capsule [id number] Yes Clemencia Hernandez NP Active gabapentin (Neurontin) 800 MG tablet [id number] Take 1 tablet (800 mg) by mouth in the morning and 1 tablet (800 mg) in the evening and 1 tablet (800 mg) before bedtime. Due 09/15/24. GRIFFIN Oliveira 09/26/24 8102 hydrOXYzine HCl (Atarax) 25 MG tablet [id number] Yes Take 1 tablet by mouth every 8 (eight) hours if needed for anxiety Shaikh Landen MD Active metoprolol succinate XL (Toprol-XL) 25 MG 24 hr tablet [id number] Yes TAKE 1 TABLET BY MOUTH EVERY DAY Shaikh Landen MD Active ocrelizumab 300 mg in sodium chloride 0.9 % 250 mL IVPB [id number] Yes Infuse 300 mg into a venous catheter 1 (one) time GRIFFIN Oliveira Active OXcarbazepine (Trileptal) 300 MG tablet [id number] Yes TAKE 1 TABLET BY MOUTH TWICE A DAY GRIFFIN Oliveira Active QUEtiapine (SEROquel) 300 MG tablet [id number] Yes Take 1 tablet (300 mg) by mouth at bedtime Clemencia Hernandez NP Active HPI Multiple Sclerosis Associated symptoms include fatigue and numbness. Pertinent negatives include no nausea or vomiting. MS -last Ocrevus infusion was 12/18/23 -continues to have left drop foot; still wears a brace -ambulates with a cane -could feel significant worsening with ambulation a few weeks prior to his infusion -wondering if he could have this sooner after speaking with infusion nurses. -has had falls -denies injuries -continues to have numbness in left foot and left hand -hand always feels cold, left leg from the zarate down always feels cold -he is on Trileptal and Gabapentin -denies any incontinence, admits urgency -feels he is stable in mood ROS Review of Systems Constitutional: Positive for fatigue. HENT: Positive for voice change. Negative for trouble swallowing. Eyes: Negative for photophobia and visual disturbance. Gastrointestinal: Negative for nausea and vomiting. Musculoskeletal: Positive for gait problem. Neurological: Positive for numbness. Negative for syncope and speech difficulty. Psychiatric/Behavioral: Positive for sleep disturbance. Objective Visit Vitals BP 122/84 Ht 6' 3 Wt 173 lb BMI 21.62 kg/m Smoking Status Former BSA 2.04 m Neurological Exam Mental Status Awake, alert and oriented to person, place and time. Oriented to person, place, time and situation. Recent and remote memory are intact. Speech is normal. Language is fluent with no aphasia. Attention and concentration are normal. Cranial Nerves CN III, IV, : Extraocular movements intact bilaterally. Normal lids and orbits bilaterally. Pupils equal round and reactive to light bilaterally. CN VII: Right: There is no facial weakness. Left: There is no facial weakness. CN VIII: Hearing is normal. CN XI: Shoulder shrug strength is normal. CN XII: Tongue midline without atrophy or fasciculations. Sensory Light touch is normal in upper and lower extremities. Vibration abnormality: Bilateral lower extremities. Coordination Right: Rthziy-on-sktl normal.Left: Lqvetp-ry-onde normal. Motor Examination RUE Strength deltoid, biceps, triceps, wrist extensors, wrist extensors, wrist flexor, wire annealer strength 5/5. LUE Strength deltoid, biceps, triceps, wrist extensors, wrist extensors, wrist flexor, wire annealer strength 4/5. RLE Strength illopsoas, quadriceps, tibialis anterior, and gastrocnemius strength 5/5. LLE Strength illopsoas, quadriceps, tibialis anterior, and gastrocnemius strength 3/5. Tone Normal tone x4 extremities. Reflexes: RUE biceps reflex 2, LUE biceps reflex 2, RLE knee reflex 3, LLE knee reflex 3, Assessment and Plan Diagnoses and all orders for this visit: Multiple sclerosis (CMS/HCC) - CBC and differential; Future - Comprehensive metabolic panel; Future - IgG; Future Lumbar radiculopathy Chronic bilateral low back pain, unspecified whether sciatica present Degeneration of intervertebral disc of lumbar region with discogenic back pain and lower extremity pain Fatigue, unspecified type Left leg weakness Multiple sclerosis (CMS/HCC) Fatigue, unspecified type Left leg weakness History of RRMS. He has greatest symptoms of weakness to LLE. Was previously on Glatopa. 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 He was maintained on Aubagio as Glatopa was discontinued due to active lesions in the cervical spine. He had short lived benefit with IV Solumedrol 01/2022 which was given due to increase in left leg and arm weakness. Neuropsychological evaluation 02/07/23 revealed findings consistent with baseline estimates. Verbal memory appeared to fluctuate with attention. He had stable Brain MRI from02/2024. He notes his chronic LLE symptoms persist. Aubagio was stopped as he was declining and Ocrevus was approved. He had first dose on 12/01/23 and is doing well. He also experiences MS related fatigue. He did not tolerate amantadine due to stomach upset. Labwork from 04/2024 revealed normal lymphocytes. He denies worsening symptoms. He continues with falls and is using his cane. It appears that insurance denied a new rollator walker as he received one in 2021. He notes that he had increase in symptoms prior to his Ocrevus infusion in November which may warrant change of scheduled interval. Cervical radiculopathy Neck pain Patient has neck pain and EMG revealed evidence of left C8 radiculopathy. MRI of the cervical spine 03/2020 also revealed left subarticular and foraminal disc extrusion contributing to mild spinal canal stenosis with mild mass effect on the left anterior and lateral aspect of the cervical cord. There is also severe left neural foraminal narrowing at this level. He had surgery by Dr. May. Hehad an incidental finding of nonunified spinous process fracture of C7 on MRI C spine 06/20/23.He denies worsening neck pain. Degenerative disc disease, lumbar Chronic bilateral low back pain, unspecified whether sciatica present Lumbar radiculopathy H/o lumbar discectomy 10/[address] Has seen Dr[address] Tavarez in the past but is no longer a patient there due to patient using medical marijuana per patient reports he isno longer seeing Dr. Alaniz as he has not responded to therapy. Xray of the lumbar spine revealed L4-5 and L5-S1 moderate degenerative disc disease, progressed at L4-5. He is unable to take Mobic due to having one kidney. He underwent L4-S1 fusion per Dr. May 11/2020. EMG 03/2022 revealed moderate bilateral S1 radiculopathies which could also possibly be contributing to left heaviness as well. He unfortunately continues with weakness and falls. Patient is unable to do PT due to taking care of his child at home as well as his grandmother. He is maintained on gabapentin. OARRS followed. He saw Dr. May recently and notes that he is going to redo PT but his MS lesions are likely contributing to most of his ambulation difficulties. Blood work: 04/03/2024: WBC 8.4, hemoglobin 16.3, hematocrit 48.7, platelet 246, abs lymphocytes 2.5, Alk phos elevated at 120 MRI brain 03/21/2024: no acute intracranial process, findings consistent with demyelinating disease without significant interval change. No diffusion restriction or abnormal postcontrast enhancement to suggest active demyelination. MRI brain 01/10/23: revealed stable lesions with no abnormal post contrast enhancement. MRI C spine 06/20/23: revealed a nonunified fracture of the C7 spinous process with accompanying edema of uncertain acuity but is new from prior exam 09/2021. Similar demyelinating plaques were noted in the brainstem and cervical cord without interval change. MRI thoracic spine 06/20/23: revealed no demyelinating lesions. There are mild multilevel degenerative changes Labwork 08/2021: unremarkable. Neuropsychological evaluation 02/07/23: revealed findings consistent with baseline estimates. Verbal memory appeared to fluctuate with attention. BUE EMG: revealed evidence of left C8 radiculopathy BLE EMG 03/2022: revealed moderate bilateral S1 radiculopathies which could also possibly be contributing to left heaviness as well. MRI of the lumbar spine 12/2019: revealed circumferential disc bulge with mass effect on left L5 nerve roots. There is moderate canal stenosis and moderate to severe bilateral neural foraminal narrowing. There is also mass effect from disc extrusion on the left S1 nerve root with moderate spinal canal stenosis PLAN: 1. I will obtain labwork in regards to his MS therapy. 2. We will change Ocrevus to every 5 months versus 6 months due to his worsening in symptoms. 3. He is due for his MRIs to be updated at his next visit. 4. Continue Trileptal 300mg PO BID for neuropathic pain. 5. OARRS reviewed. 6. Continue gabapentin 800mg PO TID for neuropathic pain. 7. I counseled the patient on fall precautions at length. I discussed the high risk of trauma and debility associated with falls. The patient states understanding. Follow up in 3-4 months documented in this encounter [facility] 08-27-2024 History of Presen t illness Narrative [facility] Alexis Negrete 1980 Date of visit: 08/27/2024 Subjective: MS -last Ocrevus infusion was in May -continues to have left drop foot; still wears a brace -ambulates with a cane -has had falls -reports occasional redness to his left leg -denies any pain or swelling -continues to have numbness in left foot and left hand -hand always feels cold, left leg from the zarate down always feels cold -dull pain in hands and feet -he is on Trileptal and Gabapentin -denies any incontinence, admits urgency -admits anxiety and depression, no worsening -does not sleep well at night -averages 4-5 hours -does not wake feeling rested -intermittent fatigue during the day -has a 3 year old at home, keeps him busy Allergies: Allergies Allergen Reactions Penicillins Swelling and GI intolerance Current Medications: albuterol HFA busPIRone DULoxetine ergocalciferol gabapentin hydrOXYzine HCl metoprolol succinate XL ocrelizumab (Ocrevus) 300 mg in 250 mL NS IVPB - Initial Dose OXcarbazepine QUEtiapine Past Medical History: Past Medical History: Diagnosis Date Abnormal thyroid screen (blood) Adjustment reaction with anxiety and depression (CMS/HCC) Continue seroquel HS, continue cymbalta 60mg daily am, Add 30mg HS At high risk for falls Cervical radiculopathy Chronic bilateral low back pain with left-sided sciatica Explained to patient he must obtain all narcotic pain medication from pain management. Follow up Pain management, neurology as scheduled. Continue gabapentin as ordered. DDD (degenerative disc disease), lumbar Degenerative disc disease, cervical MRI - [facility] Depression (CMS/HCC) Displacement of lumbar intervertebral disc without myelopathy Frequent headaches Monitor, reported to neurologist t Oct 11. Encourage to keep headache journal. History of lumbar surgery 07/2015 Lumbarectomy History of medical problems pt has one kidney HTN (hypertension) (CMS/HCC) Above goal. On Toprol for it. Hyponatremia Insomnia, persistent Left-sided weakness Weakness, blurred vision, continues. MRI reveals acute demyelinating process. Weight loss.Increase gabapentin rx, pt reports taking 600mg TID. Leukocytosis Low serum thyroid stimulating hormone (TSH) Lumbar radiculopathy Lumbar spondylosis 07/02/2015 Lumbosacral radiculopathy MS (multiple sclerosis) ([facility]) MS with persistent LLE and LUE weakness. Opioid use Patient has had 3 ER visits for Opioid overdose. Reports using Heroine and prescriptions drugs to deal with depression and anxiety. Started using 8 months ago. Claims no prior hx of drug use. He reports that he realized that this was a mistake and is not currently using anything. He did not use IV drugs and currently denies craving/withdrawal symptoms Renal agenesis Right-sided chest wall pain He reports he has noticed right side chest wall pain x 2-3 months, that is pleuritic in nature. He has previous hx of PTX and had chest tube aver 10 years ago Denies cough, fever,SOB. Spinal stenosis of lumbar region with radiculopathy 07/02/2015 Sprain of left ankle, initial encounter Tobacco user Quit successfully with Chantix in 2018. Started to smoke again last year at the end of 2019 Now smoking pack a day. Helps him cope with stress and anxiety. Insurance previously did not cover Nicotine patches. Wellbutrin made him irritable/had mood instability with it Underweight Wheezing without diagnosis of asthma Past Surgical History: Past Surgical History: Procedure Laterality Date BACK SURGERY 07/21/2017 LUMBAR DISCECTOMY 07/2015 Dr. May LUMBAR DISCECTOMY Right 2014 Dr. May LUMBAR DISCECTOMY Left 2017 Dr. May PLEURAL SCARIFICATION 07/21/2017 SPINE SURGERY 11/09/2017 Diskectomy- Dr. May Family History: Family History Problem Relation Name Age of Onset Mental illness Mother Parkinsonism Mother Hypertension Father Heart disease Maternal Grandmother Heart disease Paternal Grandmother Cancer Paternal Grandfather Thyroid disease Other Social History: Social History Tobacco Use Smoking status: Former Current packs/day: 0.00 Types: Cigarettes Quit date: 03/2017 Years since quittin.4 Smokeless tobacco: Never Vaping Use Vaping status: Never Used Substance Use Topics Alcohol use: Never Comment: caffeine: more than 4 cups per day Drug use: Yes Types: Marijuana Comment: daily - medical Review of Systems: Review of Systems Constitutional: Positive for fatigue. Gastrointestinal: Negative for nausea and vomiting. Genitourinary: Positive for urgency. Musculoskeletal: Positive for gait problem. Neurological: Positive for numbness. Negative for syncope and speech difficulty. Psychiatric/Behavioral: Positive for sleep disturbance. Objective: Vitals: Visit Vitals BP 120/80 (BP Location: Left arm, Patient Position: Sitting) Ht 6' 3 Wt 173 lb BMI 21.62 kg/m Smoking Status Former BSA 2.04 m Neurological Exam Mental Status Awake, alert and oriented to person, place and time. Oriented to person, place, time and situation. Recent and remote memory are intact. Speech is normal. Language is fluent with no aphasia. Attention and concentration are normal. Cranial Nerves CN III, IV, : Extraocular movements intact bilaterally. Normal lids and orbits bilaterally. Pupils equal round and reactive to light bilaterally. CN VII: Full and symmetric facial movement. CN VIII: Hearing is normal. CN IX, X: Palate elevates symmetrically CN XI: Shoulder shrug strength is normal. Motor Decreased muscle bulk throughout. Normal muscle tone. LLE strength 3+/5 LUE strength 4/5. Sensory Light touch is normal in upper and lower extremities. Vibration abnormality: To distal lower extremities. Reflexes Right Left Brachioradialis 2+ 2+ Biceps 2+ 2+ Patellar 3+ 3+ Coordination Tzzjrf-nx-eken, rapid alternating movements and ryqt-qu-zoqk normal bilaterally without dysmetria. Gait Spastic gait. Assessment: Diagnoses and all orders for this visit: Multiple sclerosis (CMS/[facility]) Fatigue, unspecified type Left leg weakness RRMS. He has greatest symptoms of weakness to LLE. Was previously on Glatopa. 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 He was maintained on Aubagio as Glatopa was discontinued due to active lesions in the cervical spine. He had short lived benefit with IV Solumedrol 01/2022 which was given due to increase in left leg and arm weakness. Neuropsychological evaluation 02/07/23 revealed findings consistent with baseline estimates. Verbal memory appeared to fluctuate with attention. He had stable Brain MRI from02/2024. He notes his chronic LLE symptoms persist. Aubagio was stopped as he was declining and Ocrevus was approved. He had first dose on 12/01/23 and is doing well. He also experiences MS related fatigue. He did not tolerate amantadine due to stomach upset.Symptoms are stable. Cervical radiculopathy Neck pain Patient has neck pain and EMG revealed evidence of left C8 radiculopathy. MRI of the cervical spine 03/2020 also revealed left subarticular and foraminal disc extrusion contributing to mild spinal canal stenosis with mild mass effect on the left anterior and lateral aspect of the cervical cord. There is also severe left neural foraminal narrowing at this level. He had surgery by Dr. May. Hehad an incidental finding of nonunified spinous process fracture of C7 on MRI C spine 06/20/23. Degenerative disc disease, lumbar Chronic bilateral low back pain, unspecified whether sciatica present Lumbar radiculopathy H/o lumbar discectomy 10/[address] Has seen Dr[address] Tavarez in the past but is no longer a patient there due to patient using medical marijuana per patient reports he isno longer seeing Dr. Alaniz as he has not responded to therapy. Xray of the lumbar spine revealed L4-5 and L5-S1 moderate degenerative disc disease, progressed at L4-5. He is unable to take Mobic due to having one kidney. He underwent L4-S1 fusion per Dr. May 11/2020. EMG 03/2022 revealed moderate bilateral S1 radiculopathies which could also possibly be contributing to left heaviness as well. He unfortunately continues with weakness and falls. Patient is unable to do PT due to taking care of his child at home as well as his grandmother. He is maintained on gabapentin. Blood work: 04/03/2024: WBC 8.4, hemoglobin 16.3, hematocrit 48.7, platelet 246, abs lymphocytes 2.5, Alk phos elevated at 120 MRI brain 03/21/2024: no acute intracranial process, findings consistent with demyelinating disease without significant interval change. No diffusion restriction or abnormal postcontrast enhancement to suggest active demyelination. MRI brain 01/10/23: revealed stable lesions with no abnormal post contrast enhancement. MRI C spine 06/20/23: revealed a nonunified fracture of the C7 spinous process with accompanying edema of uncertain acuity but is new from prior exam 09/2021. Similar demyelinating plaques were noted in the brainstem and cervical cord without interval change. MRI thoracic spine 06/20/23: revealed no demyelinating lesions. There are mild multilevel degenerative changes Labwork 08/2021: unremarkable. Neuropsychological evaluation 02/07/23: revealed findings consistent with baseline estimates. Verbal memory appeared to fluctuate with attention. BUE EMG: revealed evidence of left C8 radiculopathy BLE EMG 03/2022: revealed moderate bilateral S1 radiculopathies which could also possibly be contributing to left heaviness as well. MRI of the lumbar spine 12/2019: revealed circumferential disc bulge with mass effect on left L5 nerve roots. There is moderate canal stenosis and moderate to severe bilateral neural foraminal narrowing. There is also mass effect from disc extrusion on the left S1 nerve root with moderate spinal canal stenosis PLAN 1. Brain MRI reviewed 2. Blood work reviewed 3. A rollator walker is ordered for patient's balance problem and chronic weakness secondary to multiple sclerosis. Is is needed for a lifetime, as his symptoms are chronic and debilitating. The patient will benefit with use of rollator walker as it will provide a seat for patient at all times and allow for improved gait and mobility, decreasing risk of falls with additional injury. He continues with falls despite use of a stationary walker and cane; these are no longer safe for him to use. 4. Continue Ocrevus for MS as scheduled. 5. OARRS reviewed. 6. Continue Trileptal 300mg PO BID for neuropathic pain. 7. Continue gabapentin 800mg PO TID for neuropathic pain. 8. I counseled the patient on fall precautions at length. I discussed the high risk of trauma and debility associated with falls. The patient states understanding. Images from the original note were not included. Subjective Alexis Negrete is a 43 y.o. year old male Chief Complaint Patient presents with Multiple Sclerosis Past Medical History: Diagnosis Date Abnormal thyroid screen (blood) Adjustment reaction with anxiety and depression (CMS/HCC) Continue seroquel HS, continue cymbalta 60mg daily am, Add 30mg HS At high risk for falls Cervical radiculopathy Chronic bilateral low back pain with left-sided sciatica Explained to patient he must obtain all narcotic pain medication from pain management. Follow up Pain management, neurology as scheduled. Continue gabapentin as ordered. DDD (degenerative disc disease), lumbar Degenerative disc disease, cervical MRI - NOMS Depression ([facility]/HCC) Displacement of lumbar intervertebral disc without myelopathy Frequent headaches Monitor, reported to neurologist t Oct 11. Encourage to keep headache journal. History of lumbar surgery 07/2015 Lumbarectomy History of medical problems pt has one kidney HTN (hypertension) ([facility]/HCC) Above goal. On Toprol for it. Hyponatremia Insomnia, persistent Left-sided weakness Weakness, blurred vision, continues. MRI reveals acute demyelinating process. Weight loss.Increase gabapentin rx, pt reports taking 600mg TID. Leukocytosis Low serum thyroid stimulating hormone (TSH) Lumbar radiculopathy Lumbar spondylosis 07/02/2015 Lumbosacral radiculopathy MS (multiple sclerosis) ([facility]) MS with persistent LLE and LUE weakness. Opioid use Patient has had 3 ER visits for Opioid overdose. Reports using Heroine and prescriptions drugs to deal with depression and anxiety. Started using 8 months ago. Claims no prior hx of drug use. He reports that he realized that this was a mistake and is not currently using anything. He did not use IV drugs and currently denies craving/withdrawal symptoms Renal agenesis Right-sided chest wall pain He reports he has noticed right side chest wall pain x 2-3 months, that is pleuritic in nature. He has previous hx of PTX and had chest tube aver 10 years ago Denies cough, fever,SOB. Spinal stenosis of lumbar region with radiculopathy 07/02/2015 Sprain of left ankle, initial encounter Tobacco user Quit successfully with Chantix in 2019. Started to smoke again last year at the end of 2019 Now smoking pack a day. Helps him cope with stress and anxiety. Insurance previously did not cover Nicotine patches. Wellbutrin made him irritable/had mood instability with it Underweight Wheezing without diagnosis of asthma Past Surgical History: Procedure Laterality Date BACK SURGERY 07/21/2017 LUMBAR DISCECTOMY 07/2015 Dr. Mya LUMBAR DISCECTOMY Right 2014 Dr. May LUMBAR DISCECTOMY Left 2018 Dr. May PLEURAL SCARIFICATION 07/21/2017 SPINE SURGERY 11/09/2017 Diskectomy- Dr. May Family History Problem Relation Name Age of Onset Mental illness Mother Parkinsonism Mother Hypertension Father Heart disease Maternal Grandmother Heart disease Paternal Grandmother Cancer Paternal Grandfather Thyroid disease Other Social History Tobacco Use Smoking status: Former Current packs/day: 0.00 Types: Cigarettes Quit date: 03/2017 Years since quittin.4 Smokeless tobacco: Never Substance Use Topics Alcohol use: Never Comment: caffeine: more than 4 cups per day Medication Documentation Review Audit Reviewed by Ann Lee MA (Assurance Officer) on 08/27/24 at 1451 Medication Order Taking? Sig Documenting Provider Last Dose Status albuterol HFA 90 mcg/act inhaler [id number] Inhale 2 puffs every 4 (four) hours if needed for wheezing Shaikh Landen MD Active busPIRone (Buspar) 10 MG tablet [id number] TAKE 1 TABLET (10 MG) BY MOUTH IN THE MORNING AND BEFORE BEDTIME Clemencia Hernandez NP Active DULoxetine (Cymbalta) [address] capsule [id number] TAKE 1 CAPSULE BY MOUTH EVERY DAY Clemencia Hernandez NP Active ergocalciferol (Vitamin D2) 1.25 MG (15121 UT) capsule [id number] TAKE 1 CAPSULE BY MOUTH ONE TIME PER WEEK Clemencia Hernandez NP Active gabapentin (Neurontin) 800 MG tablet [id number] Take 1 tablet (800 mg) by mouth in the morning and 1 tablet (800 mg) in the evening and 1 tablet (800 mg) before bedtime. GRIFFIN Samuels Active hydrOXYzine HCl (Atarax) 25 MG tablet [id number] Take 1 tablet by mouth every 8 (eight) hours if needed for anxiety Patient not taking: Reported on 06/20/2024 Shaikh Landen MD Active metoprolol succinate XL (Toprol-XL) 25 MG 24 hr tablet [id number] TAKE 1 TABLET BY MOUTH EVERY DAY Shaikh Landen MD Active ocrelizumab 300 mg in sodium chloride 0.9 % 250 mL IVPB [id number] Infuse 300 mg into a venous catheter 1 (one) time GRIFFIN Oliveira Active OXcarbazepine (Trileptal) 300 MG tablet [id number] TAKE 1 TABLET BY MOUTH TWICE A DAY GRIFFIN Oliveira Active QUEtiapine (SEROquel) 300 MG tablet [id number] Take 1 tablet (300 mg) by mouth at bedtime Clemencia Hernandez NP Active HPI Multiple Sclerosis Associated symptoms include fatigue and numbness. Pertinent negatives include no nausea or vomiting. MS -last Ocrevus infusion was in May -continues to have left drop foot; still wears a brace -ambulates with a cane -has had falls -reports occasional redness to his left leg -denies any pain or swelling -continues to have numbness in left foot and left hand -hand always feels cold, left leg from the zarate down always feels cold -dull pain in hands and feet -he is on Trileptal and Gabapentin -denies any incontinence, admits urgency -admits anxiety and depression, no worsening -does not sleep well at night -averages 4-5 hours -does not wake feeling rested -intermittent fatigue during the day ROS Review of Systems Constitutional: Positive for fatigue. HENT: Positive for voice change. Negative for trouble swallowing. Eyes: Negative for photophobia and visual disturbance. Gastrointestinal: Negative for nausea and vomiting. Musculoskeletal: Positive for gait problem. Neurological: Positive for numbness. Negative for syncope and speech difficulty. Psychiatric/Behavioral: Positive for sleep disturbance. Objective Visit Vitals BP 120/80 (BP Location: Left arm, Patient Position: Sitting) Ht 6' 3 Wt 173 lb BMI 21.62 kg/m Smoking Status Former BSA 2.04 m Neurological Exam Mental Status Awake, alert and oriented to person, place and time. Oriented to person, place, time and situation. Recent and remote memory are intact. Speech is normal. Language is fluent with no aphasia. Attention and concentration are normal. Cranial Nerves CN III, IV, : Extraocular movements intact bilaterally. Normal lids and orbits bilaterally. Pupils equal round and reactive to light bilaterally. CN VII: Right: There is no facial weakness. Left: There is no facial weakness. CN VIII: Hearing is normal. CN XI: Shoulder shrug strength is normal. CN XII: Tongue midline without atrophy or fasciculations. Sensory Light touch is normal in upper and lower extremities. Vibration abnormality: Bilateral lower extremities. Coordination Right: [id number]-[id number]-[id number] normal.Left: Ehitdg-yg-[id number] normal. Motor Examination RUE Strength deltoid, biceps, triceps, wrist extensors, wrist extensors, wrist flexor, wire annealer strength 5/5. LUE Strength deltoid, biceps, triceps, wrist extensors, wrist extensors, wrist flexor, wire annealer strength 4/5. RLE Strength illopsoas, quadriceps, tibialis anterior, and gastrocnemius strength 5/5. LLE Strength illopsoas, quadriceps, tibialis anterior, and gastrocnemius strength 3/5. Tone Normal tone x4 extremities. Reflexes: RUE biceps reflex 2, LUE biceps reflex 2, RLE knee reflex 3, LLE knee reflex 3, Assessment and Plan Diagnoses and all orders for this visit: Multiple sclerosis (CMS/HCC) Cervical radiculopathy - gabapentin (Neurontin) 800 MG tablet; Take 1 tablet (800 mg) by mouth in the morning and 1 tablet (800 mg) in the evening and 1 tablet (800 mg) before bedtime. Due 09/15/24. Fatigue, unspecified type Neck pain Malaise and fatigue Multiple sclerosis (CMS/HCC) Fatigue, unspecified type Left leg weakness History of RRMS. He has greatest symptoms of weakness to LLE. Was previously on Glatopa. 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 He was maintained on Aubagio as Glatopa was discontinued due to active lesions in the cervical spine. He had short lived benefit with IV Solumedrol 01/2022 which was given due to increase in left leg and arm weakness. Neuropsychological evaluation 02/07/23 revealed findings consistent with baseline estimates. Verbal memory appeared to fluctuate with attention. He had stable Brain MRI from02/2024. He notes his chronic LLE symptoms persist. Aubagio was stopped as he was declining and Ocrevus was approved. He had first dose on 12/01/23 and is doing well. He also experiences MS related fatigue. He did not tolerate amantadine due to stomach upset.Symptoms are stable. Labwork from 04/2024 revealed normal lymphocytes. He denies worsening symptoms. He continues with falls and is using his cane. It appears that insurance denied a new rollator walker as he received one in 2021. Cervical radiculopathy Neck pain Patient has neck pain and EMG revealed evidence of left C8 radiculopathy. MRI of the cervical spine 03/2020 also revealed left subarticular and foraminal disc extrusion contributing to mild spinal canal stenosis with mild mass effect on the left anterior and lateral aspect of the cervical cord. There is also severe left neural foraminal narrowing at this level. He had surgery by Dr. May. Ji an incidental finding of nonunified spinous process fracture of C7 on MRI C spine 06/20/23. Degenerative disc disease, lumbar Chronic bilateral low back pain, unspecified whether sciatica present Lumbar radiculopathy H/o lumbar discectomy 10/[address] Has seen Dr[address] Tavarez in the past but is no longer a patient there due to patient using medical marijuana per patient reports he isno longer seeing Dr. Alaniz as he has not responded to therapy. Xray of the lumbar spine revealed L4-5 and L5-S1 moderate degenerative disc disease, progressed at L4-5. He is unable to take Mobic due to having one kidney. He underwent L4-S1 fusion per Dr. May 11/2020. EMG 03/2022 revealed moderate bilateral S1 radiculopathies which could also possibly be contributing to left heaviness as well. He unfortunately continues with weakness and falls. Patient is unable to do PT due to taking care of his child at home as well as his grandmother. He is maintained on gabapentin. OARRS followed. Blood work: 04/03/2024: WBC 8.4, hemoglobin 16.3, hematocrit 48.7, platelet 246, abs lymphocytes 2.5, Alk phos elevated at 120 MRI brain 03/21/2024: no acute intracranial process, findings consistent with demyelinating disease without significant interval change. No diffusion restriction or abnormal postcontrast enhancement to suggest active demyelination. MRI brain 01/10/23: revealed stable lesions with no abnormal post contrast enhancement. MRI C spine 06/20/23: revealed a nonunified fracture of the C7 spinous process with accompanying edema of uncertain acuity but is new from prior exam 09/2021. Similar demyelinating plaques were noted in the brainstem and cervical cord without interval change. MRI thoracic spine 06/20/23: revealed no demyelinating lesions. There are mild multilevel degenerative changes Labwork 08/2021: unremarkable. Neuropsychological evaluation 02/07/23: revealed findings consistent with baseline estimates. Verbal memory appeared to fluctuate with attention. BUE EMG: revealed evidence of left C8 radiculopathy BLE EMG 03/2022: revealed moderate bilateral S1 radiculopathies which could also possibly be contributing to left heaviness as well. MRI of the lumbar spine 12/2019: revealed circumferential disc bulge with mass effect on left L5 nerve roots. There is moderate canal stenosis and moderate to severe bilateral neural foraminal narrowing. There is also mass effect from disc extrusion on the left S1 nerve root with moderate spinal canal stenosis PLAN: 1. Labwork reviewed. 2. Continue Ocrevus for MS as scheduled. 3. Continue Trileptal 300mg PO BID for neuropathic pain. 4. OARRS reviewed. 5. Continue gabapentin 800mg PO TID for neuropathic pain. 6. I counseled the patient on fall precautions at length. I discussed the high risk of trauma and debility associated with falls. The patient states understanding. Follow up in 4 months documented in this encounter [facility] 06-20-2024 History of Presen t illness Narrative Associated Problem(s): Encounter for wellness examination in adult I have reviewed Ht/Wt/BMI, I have reviewed recommended vaccines for patient's age, as well as all recommended screenings I have reviewed available care everywhere notes as well. I have recommended eating a balanced diet, as well as activity as chronic conditions allow It is recommended that the patient have a yearly eye exam, as well as twice a year dental exams Fu in this office for wellness on a yearly basis Diet: Eat three meals per day. Breakfast, lunch, and dinner. Avoid snacking. Avoid eating after 5/6 pm. Daily protein GOAL 35% of your intake; 30g per meal. Daily calorie GOAL 1,800-2,000 per day. Water: Increase water intake; GOAL 64-80oz of water per day. Exercise: Increase activity. GOAL 30 minutes, 5 days per week. START SLOW. Start with 5 minutes, 5 days per week. Then increase to 10 days, 5 days per week. Continue to increase until you reach the goal. Increase steps; GOAL 10,000 steps per day. Be sure to get adequate sleep; GOAL 6-8 hours of sleep per night. Associated Problem(s): Primary insomnia Was started on serioquel several years ago from prevoious PCP. Feels medicaiton works well. Denies any adverse reactions. Reports he feels it also improves his mood. Images from the original note were not included. Subjective Patient ID: Alexis Negrete is a 43 y.o. male who presents for Follow-up. HPI Specialists: Neuro- Dr. Vergara Ortho- Dr. Gutierrez Endocrinology- Dr. Munoz Neurosurgery- Dr. May Was seen in February for fall and L shoulder pain. Had previous L humerus fx and was concerned he re broken arm. Xray's showed no acute injury or changes from previous Xray. Did not follow up with Ortho. Reports shoulder feels better now, no complaints. Reviewed lab work- partially completed. WNL. Sees Neurology next month See's Neurosurgery 11/2024 Dr. Munoz 11/2024 Primary Insomnia- Was started on serioquel several years ago from prevoious PCP. Feels medicaiton works well. Denies any adverse reactions. Reports he feels it also improves his mood. Diet:Mostly home cooked meals. Lots of protein. Fruits/vegetables. Water: Not enough. Caffeine: Too much; 64 ounces Exercise: Nothing consistent Sleep: 4-6 hours. Feels well rested. Review of Systems Constitutional: Negative for activity change, appetite change, chills, diaphoresis, fatigue, fever and unexpected weight change. HENT: Negative for congestion, ear pain, rhinorrhea, sinus pressure, sinus pain, sneezing, sore throat, trouble swallowing and voice change. Eyes: Negative for visual disturbance. Respiratory: Negative for cough, chest tightness, shortness of breath and wheezing. Cardiovascular: Negative for chest pain, palpitations and leg swelling. Gastrointestinal: Negative for abdominal distention, abdominal pain, blood in stool, constipation, diarrhea and vomiting. Genitourinary: Negative for decreased urine volume, dysuria, flank pain, frequency, hematuria and urgency. Musculoskeletal: Negative for arthralgias, gait problem, joint swelling and myalgias. Skin: Negative for rash. Neurological: Negative for dizziness, tremors, syncope, weakness, light-headedness and headaches. Psychiatric/Behavioral: Negative for decreased concentration and suicidal ideas. The patient is not nervous/anxious. Hematological: Does not bruise/bleed easily. Endocrine: Negative for cold intolerance, heat intolerance, polydipsia, polyphagia and polyuria. Objective Physical Exam Vitals reviewed. Constitutional: Appearance: Normal appearance. HENT: Head: Normocephalic and atraumatic. Right Ear: Tympanic membrane normal. Left Ear: Tympanic membrane normal. Nose: Nose normal. Mouth/Throat: Mouth: Mucous membranes are moist. Pharynx: Oropharynx is clear. Eyes: Pupils: Pupils are equal, round, and reactive to light. Cardiovascular: Rate and Rhythm: Normal rate and regular rhythm. Pulses: Normal pulses. Heart sounds: Normal heart sounds. Pulmonary: Effort: Pulmonary effort is normal. Breath sounds: Normal breath sounds. Abdominal: General: Abdomen is flat. Bowel sounds are normal. Palpations: Abdomen is soft. Musculoskeletal: General: Normal range of motion. Cervical back: Normal range of motion. Skin: General: Skin is warm and dry. Capillary Refill: Capillary refill takes less than 2 seconds. Neurological: General: No focal deficit present. Mental Status: He is alert and oriented to person, place, and time. Psychiatric: Mood and Affect: Mood normal. Behavior: Behavior normal. Assessment/Plan Problem List Items Addressed This Visit Primary insomnia - Primary Was started on serioquel several years ago from prevoious PCP. Feels medicaiton works well. Denies any adverse reactions. Reports he feels it also improves his mood. Encounter for wellness examination in adult I have reviewed Ht/Wt/BMI, I have reviewed recommended vaccines for patient's age, as well as all recommended screenings I have reviewed available care everywhere notes as well. I have recommended eating a balanced diet, as well as activity as chronic conditions allow It is recommended that the patient have a yearly eye exam, as well as twice a year dental exams Fu in this office for wellness on a yearly basis Diet: Eat three meals per day. Breakfast, lunch, and dinner. Avoid snacking. Avoid eating after 5/6 pm. Daily protein GOAL 35% of your intake; 30g per meal. Daily calorie GOAL 1,800-2,000 per day. Water: Increase water intake; GOAL 64-80oz of water per day. Exercise: Increase activity. GOAL 30 minutes, 5 days per week. START SLOW. Start with 5 minutes, 5 days per week. Then increase to 10 days, 5 days per week. Continue to increase until you reach the goal. Increase steps; GOAL 10,000 steps per day. Be sure to get adequate sleep; GOAL 6-8 hours of sleep per night. Need for immunization against influenza Relevant Orders Flu vaccine greater than or equal to 3 years old, preservative free IM (Completed) Other Visit Diagnoses Psychophysiological insomnia Relevant Medications QUEtiapine (SEROquel) 300 MG tablet documented in this encounter [facility] 06-20-2024 Instructions Clemencia Hernandez NP - 06/20/2024 9:30 AM EDT Diet: Eat three meals per day. Breakfast, lunch, and dinner. Avoid snacking. Avoid eating after 5/6 pm. Daily protein GOAL 35% of your intake; 30g per meal. Water: Increase water intake; GOAL 64-80oz of water per day. DECREASE caffeine intake. Exercise: Increase activity. GOAL 30 minutes, 5 days per week. START SLOW. Start with 5 minutes, 5 days per week. Then increase to 10 days, 5 days per week. Continue to increase until you reach the goal. Increase steps; GOAL 10,000 steps per day. Be sure to get adequate sleep; GOAL 6-8 hours of sleep per night. INCREASE your cardiovascular ACTIVITY; GOAL 150 minutes per week. AVOID eating less than 2-4 hours before bedtime. AVOID all electronics for 2 hours prior to bedtime. Bed is for SLEEP ONLY. AVOID excessive alcohol intake. AVOID caffeine after 12:00pm. Go to bed when you are tired. If you are not tired that night, push the time back by 30 minutes the next night. Continue to do so until you are able to fall asleep without difficulty. If you wake up in the middle of the night, DO NOT LAY THERE FOR LONGER THAN 40 MINUTES. Once you are up, YOU ARE UP FOR THE DAY. AVOID napping. Get a Lavender diffuser in your bedroom. Magnesium Glycinate 500-1,000mg about 30-60 minutes before bedtime. Brand: Innate documented in this encounter [facility] 05-09-2024 History of Presen t illness Narrative Associated Problem(s): Acute pain of left shoulder Had humerus fx in Had fall on 04/23/24- went to ER; Xray's unchanged. No acute injury. Is to schedule appt with ortho. Continue conservative measures. RICE Images from the original note were not included. Subjective Patient ID: Alexis Negrete is a 43 y.o. male who presents for Follow-up ([facility]). HPI Was seen in ED on 04/23/2024 for fall and L shoulder pain. Had previous L humerus fx and was concerned he re broken arm. Xray's showed no acute injury or changes from previous Xray. Recommended RICE. Pt states he feels better overall today. Had appointment with Ortho yesterday but had to leave appt due to family emergency. Will be rescheduling appt. Specialists: Neuro- Dr. Andre Ortho- Dr. Gutierrez Endocrinology- Dr. Munoz Review of Systems Constitutional: Negative for activity change, appetite change, chills, diaphoresis, fatigue, fever and unexpected weight change. HENT: Negative for congestion, ear pain, rhinorrhea, sinus pressure, sinus pain, sneezing, sore throat, trouble swallowing and voice change. Eyes: Negative for visual disturbance. Respiratory: Negative for cough, chest tightness, shortness of breath and wheezing. Cardiovascular: Negative for chest pain, palpitations and leg swelling. Gastrointestinal: Negative for abdominal distention, abdominal pain, blood in stool, constipation, diarrhea and vomiting. Genitourinary: Negative for decreased urine volume, dysuria, flank pain, frequency, hematuria and urgency. Musculoskeletal: Negative for arthralgias, gait problem, joint swelling and myalgias. Skin: Negative for rash. Neurological: Negative for dizziness, tremors, syncope, weakness, light-headedness and headaches. Psychiatric/Behavioral: Negative for decreased concentration and suicidal ideas. The patient is not nervous/anxious. Hematological: Does not bruise/bleed easily. Endocrine: Negative for cold intolerance, heat intolerance, polydipsia, polyphagia and polyuria. Objective Physical Exam Vitals reviewed. Constitutional: Appearance: Normal appearance. HENT: Head: Normocephalic and atraumatic. Right Ear: Tympanic membrane normal. Left Ear: Tympanic membrane normal. Nose: Nose normal. Mouth/Throat: Mouth: Mucous membranes are moist. Pharynx: Oropharynx is clear. Eyes: Pupils: Pupils are equal, round, and reactive to light. Cardiovascular: Rate and Rhythm: Normal rate and regular rhythm. Pulses: Normal pulses. Heart sounds: Normal heart sounds. Pulmonary: Effort: Pulmonary effort is normal. Breath sounds: Normal breath sounds. Abdominal: General: Abdomen is flat. Bowel sounds are normal. Palpations: Abdomen is soft. Musculoskeletal: General: Normal range of motion. Cervical back: Normal range of motion. Skin: General: Skin is warm and dry. Capillary Refill: Capillary refill takes less than 2 seconds. Neurological: General: No focal deficit present. Mental Status: He is alert and oriented to person, place, and time. Psychiatric: Mood and Affect: Mood normal. Behavior: Behavior normal. Assessment/Plan Problem List Items Addressed This Visit Lumbar radiculopathy Relevant Medications DULoxetine (Cymbalta) [address] capsule Acute pain of left shoulder - Primary Had humerus fx in Had fall on 04/23/24- went to ER; Xray's unchanged. No acute injury. Is to schedule appt with ortho. Continue conservative measures. RICE Other Visit Diagnoses Psychophysiological insomnia Relevant Medications QUEtiapine (SEROquel) 300 MG tablet CHARLES (generalized anxiety disorder) (CMS/[facility]) Relevant Medications busPIRone (Buspar) 10 MG tablet documented in this encounter [facility] 04-24-2024 History of Presen t illness Narrative [facility] Alexis Negrete 1980 Date of visit: 04/24/2024 Subjective: MS -last Ocrevus infusion was in November -states he continues to do well with no SE -reports the heat affects his left leg and ambulating -continues to have left drop foot; still wears a brace -reports occasional redness to his left leg -denies any pain or swelling -ambulates with cane -admits he had a fall last night -continues to have numbness in left foot and left hand -dull pain in hands and feet -he is on Trileptal and Gabapentin -states he feels his eyes get blurry faster -seen opthalmology about 2 months ago -denies any incontinence, admits urgency -states his stream has got weaker -admits anxiety and depression, no worsening -does not sleep well at night -averages 4-5 hours -does not wake feeling rested -states he is constantly fatigued Multiple Sclerosis Associated symptoms include fatigue, numbness and weakness. Pertinent negatives include no abdominal pain, chills, fever, headaches, nausea or vomiting. Pain Associated symptoms include fatigue and weakness. Pertinent negatives include no abdominal pain, fever, headaches, nausea, shortness of breath or vomiting. Allergies: Allergies Allergen Reactions Penicillins Swelling and GI intolerance Current Medications: albuterol HFA busPIRone DULoxetine gabapentin hydrOXYzine HCl metoprolol succinate XL ocrelizumab (Ocrevus) 300 mg in 250 mL NS IVPB - Initial Dose QUEtiapine Trileptal tablet Past Medical History: Past Medical History: Diagnosis Date Abnormal thyroid screen (blood) Adjustment reaction with anxiety and depression (CMS/HCC) Continue seroquel HS, continue cymbalta 60mg daily am, Add 30mg HS At high risk for falls Cervical radiculopathy Chronic bilateral low back pain with left-sided sciatica Explained to patient he must obtain all narcotic pain medication from pain management. Follow up Pain management, neurology as scheduled. Continue gabapentin as ordered. DDD (degenerative disc disease), lumbar Degenerative disc disease, cervical MRI - [facility] Depression (CMS/HCC) Displacement of lumbar intervertebral disc without myelopathy Frequent headaches Monitor, reported to neurologist t Oct 11. Encourage to keep headache journal. History of lumbar surgery 07/2015 Lumbarectomy History of medical problems pt has one kidney HTN (hypertension) (CMS/HCC) Above goal. On Toprol for it. Hyponatremia Insomnia, persistent Left-sided weakness Weakness, blurred vision, continues. MRI reveals acute demyelinating process. Weight loss.Increase gabapentin rx, pt reports taking 600mg TID. Leukocytosis Low serum thyroid stimulating hormone (TSH) Lumbar radiculopathy Lumbar spondylosis 07/02/2015 Lumbosacral radiculopathy MS (multiple sclerosis) (CMS/HCC) MS with persistent LLE and LUE weakness. Opioid use Patient has had 3 ER visits for Opioid overdose. Reports using Heroine and prescriptions drugs to deal with depression and anxiety. Started using 8 months ago. Claims no prior hx of drug use. He reports that he realized that this was a mistake and is not currently using anything. He did not use IV drugs and currently denies craving/withdrawal symptoms Renal agenesis Right-sided chest wall pain He reports he has noticed right side chest wall pain x 2-3 months, that is pleuritic in nature. He has previous hx of PTX and had chest tube aver 10 years ago Denies cough, fever,SOB. Spinal stenosis of lumbar region with radiculopathy 07/02/2015 Sprain of left ankle, initial encounter Tobacco user Quit successfully with Chantix in 2018. Started to smoke again last year at the end of 2019 Now smoking pack a day. Helps him cope with stress and anxiety. Insurance previously did not cover Nicotine patches. Wellbutrin made him irritable/had mood instability with it Underweight Wheezing without diagnosis of asthma Past Surgical History: Past Surgical History: Procedure Laterality Date BACK SURGERY 07/21/2017 LUMBAR DISCECTOMY 07/2015 Dr. May LUMBAR DISCECTOMY Right 2014 Dr. May LUMBAR DISCECTOMY Left 2018 Dr. May PLEURAL SCARIFICATION 07/21/2017 SPINE SURGERY 11/09/2017 Diskectomy- Dr. May Family History: Family History Problem Relation Name Age of Onset Mental illness Mother Parkinsonism Mother Hypertension Father Heart disease Maternal Grandmother Heart disease Paternal Grandmother Cancer Paternal Grandfather Thyroid disease Other Social History: Social History Tobacco Use Smoking status: Every Day Current packs/day: 0.00 Types: Cigarettes Last attempt to quit: 03/2017 Years since quittin.0 Smokeless tobacco: Never Substance Use Topics Alcohol use: Never Comment: caffeine: more than 4 cups per day Drug use: Yes Types: Marijuana Comment: daily Review of Systems: Review of Systems Constitutional: Positive for fatigue. Negative for chills and fever. Eyes: Positive for visual disturbance. Respiratory: Negative for chest tightness and shortness of breath. Gastrointestinal: Negative for abdominal pain, nausea and vomiting. Musculoskeletal: Positive for gait problem. Neurological: Positive for weakness and numbness. Negative for dizziness, tremors, seizures, syncope, facial asymmetry, speech difficulty, light-headedness and headaches. Psychiatric/Behavioral: Positive for sleep disturbance. Negative for hallucinations and suicidal ideas. The patient is nervous/anxious. Objective: Vitals: Visit Vitals BP 132/82 Pulse 87 Resp 16 Ht 6' 3 Wt 165 lb SpO2 97% BMI 20.62 kg/m Smoking Status Every Day BSA 1.99 m Neurological Exam Mental Status Awake, alert and oriented to person, place and time. Oriented to person, place, time and situation. Recent and remote memory are intact. Speech is normal. Language is fluent with no aphasia. Attention and concentration are normal. Cranial Nerves CN III, IV, : Extraocular movements intact bilaterally. Normal lids and orbits bilaterally. Pupils equal round and reactive to light bilaterally. CN VII: Full and symmetric facial movement. CN VIII: Hearing is normal. CN IX, X: Palate elevates symmetrically CN XI: Shoulder shrug strength is normal. Motor Decreased muscle bulk throughout. Normal muscle tone. LLE strength 3+/5 LUE strength 4/5. Sensory Light touch is normal in upper and lower extremities. Vibration abnormality: To distal lower extremities. Reflexes Right Left Brachioradialis 2+ 2+ Biceps 2+ 2+ Patellar 3+ 3+ Coordination [id number], rapid alternating movements and [id number] normal bilaterally without dysmetria. Gait Spastic gait. Assessment: Diagnoses and all orders for this visit: Multiple sclerosis ([facility]) Fatigue, unspecified type Left leg weakness RRMS. He has greatest symptoms of weakness to LLE. Was previously on Glatopa. 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 He was maintained on Aubagio as Glatopa was discontinued due to active lesions in the cervical spine. He had short lived benefit with IV Solumedrol 01/2022 which was given due to increase in left leg and arm weakness. Neuropsychological evaluation 02/07/23 revealed findings consistent with baseline estimates. Verbal memory appeared to fluctuate with attention. He had stable Brain MRI from02/2024. He notes his chronic LLE symptoms persist. Aubagio was stopped as he was declining and Ocrevus was approved. He had first dose on 12/01/23 and is doing well. He also experiences MS related fatigue. He did not tolerate amantadine due to stomach upset.Symptoms are stable. Cervical radiculopathy Neck pain Patient has neck pain and EMG revealed evidence of left C8 radiculopathy. MRI of the cervical spine 03/2020 also revealed left subarticular and foraminal disc extrusion contributing to mild spinal canal stenosis with mild mass effect on the left anterior and lateral aspect of the cervical cord. There is also severe left neural foraminal narrowing at this level. He had surgery by Dr. May. Hehad an incidental finding of nonunified spinous process fracture of C7 on MRI C spine 06/20/23. Degenerative disc disease, lumbar Chronic bilateral low back pain, unspecified whether sciatica present Lumbar radiculopathy H/o lumbar discectomy 10/[address] Has seen Dr[address] Tavarez in the past but is no longer a patient there due to patient using medical marijuana per patient reports he isno longer seeing Dr. Alaniz as he has not responded to therapy. Xray of the lumbar spine revealed L4-5 and L5-S1 moderate degenerative disc disease, progressed at L4-5. He is unable to take Mobic due to having one kidney. He underwent L4-S1 fusion per Dr. May 11/2020. EMG 03/2022 revealed moderate bilateral S1 radiculopathies which could also possibly be contributing to left heaviness as well. He unfortunately continues with weakness and falls. Patient is unable to do PT due to taking care of his child at home as well as his grandmother. He is maintained on gabapentin. Blood work: 04/03/2024: WBC 8.4, hemoglobin 16.3, hematocrit 48.7, platelet 246, abs lymphocytes 2.5, Alk phos elevated at 120 MRI brain 03/21/2024: no acute intracranial process, findings consistent with demyelinating disease without significant interval change. No diffusion restriction or abnormal postcontrast enhancement to suggest active demyelination. MRI brain 01/10/23: revealed stable lesions with no abnormal post contrast enhancement. MRI C spine 06/20/23: revealed a nonunified fracture of the C7 spinous process with accompanying edema of uncertain acuity but is new from prior exam 09/2021. Similar demyelinating plaques were noted in the brainstem and cervical cord without interval change. MRI thoracic spine 06/20/23: revealed no demyelinating lesions. There are mild multilevel degenerative changes Labwork 08/2021: unremarkable. Neuropsychological evaluation 02/07/23: revealed findings consistent with baseline estimates. Verbal memory appeared to fluctuate with attention. BUE EMG: revealed evidence of left C8 radiculopathy BLE EMG 03/2022: revealed moderate bilateral S1 radiculopathies which could also possibly be contributing to left heaviness as well. MRI of the lumbar spine 12/2019: revealed circumferential disc bulge with mass effect on left L5 nerve roots. There is moderate canal stenosis and moderate to severe bilateral neural foraminal narrowing. There is also mass effect from disc extrusion on the left S1 nerve root with moderate spinal canal stenosis PLAN 1. Brain MRI reviewed 2. Blood work reviewed 3. A rollator walker is ordered for patient's balance problem and chronic weakness secondary to multiple sclerosis. Is is needed for a lifetime, as his symptoms are chronic and debilitating. The patient will benefit with use of rollator walker as it will provide a seat for patient at all times and allow for improved gait and mobility, decreasing risk of falls with additional injury. He continues with falls despite use of a stationary walker and cane; these are no longer safe for him to use. 4. Continue Ocrevus for MS as scheduled. 5. OARRS reviewed. 6. Continue Trileptal 300mg PO BID for neuropathic pain. 7. Continue gabapentin 800mg PO TID for neuropathic pain. 8. I counseled the patient on fall precautions at length. I discussed the high risk of trauma and debility associated with falls. The patient states understanding. documented in this encounter [facility] 12-01-2021 Evaluation note Encounter Date Diagnosis Assessment [...] the active MS that this patient has. [facility] Other 10-12-2021 Evaluation note* Encounter Date Diagnosis Assessment Notes Treatment Notes Treatment Clinical Notes May, Lumbar radiculopathy (ICD-10 - M54.16) [...] M51.36) May, Multiple sclerosis (ICD-10 - G35) [facility] Other evaluation noteNo assessment information available [facility] Work Phone: Evaluation noteNo InformationNort Superhuman Other evaluation note* Diagnosis Acute pain of left shoulder- Primary Psychophysiological insomnia Persistent disorder of initiating or maintaining sleep CHARLES (generalized anxiety disorder) (CMS/HCC) Generalized anxiety disorder Lumbar radiculopathy Thoracic or lumbosacral neuritis or radiculitis, unspecified Other psychoactive substance abuse, uncomplicated (CMS/HCC) Primary insomnia- Primary Persistent disorder of initiating or maintaining sleep Psychophysiological insomnia Persistent disorder of initiating or maintaining sleep Encounter for wellness examination in adult Need for immunization against influenza Need for prophylactic vaccination and inoculation against influenza [facility] Diagnosis Multiple sclerosis (CMS/HCC)- Primary Multiple sclerosis Fatigue, unspecified type Left leg weakness Muscle weakness (generalized) Cervical radiculopathy Brachial neuritis or radiculitis nos Neck pain Cervicalgia Degenerative disc disease, lumbar Chronic bilateral low back pain, unspecified whether sciatica present Lumbar radiculopathy Thoracic or lumbosacral neuritis or radiculitis, unspecified [facility] Diagnosis Acute pain of left shoulder- Primary Psychophysiological insomnia Persistent disorder of initiating or maintaining sleep CHARLES (generalized anxiety disorder) (CMS/HCC) Generalized anxiety disorder Lumbar radiculopathy Thoracic or lumbosacral neuritis or radiculitis, unspecified Other psychoactive substance abuse, uncomplicated ([facility]/HCC) [facility] Diagnosis Encounter for wellness examination in adult- Primary [facility]* Diagnosis Acute pain of left shoulder- Primary Psychophysiological insomnia Persistent disorder of initiating or maintaining sleep CHARLES (generalized anxiety disorder) (CMS/HCC) Generalized anxiety disorder Lumbar radiculopathy Thoracic or lumbosacral neuritis or radiculitis, unspecified Other psychoactive substance abuse, uncomplicated (CMS/HCC) Primary insomnia- Primary Persistent disorder of initiating or maintaining sleep Psychophysiological insomnia Persistent disorder of initiating or maintaining sleep Encounter for wellness examination in adult Need for immunization against influenza Need for prophylactic vaccination and inoculation against influenza Lumbar radiculopathy Thoracic or lumbosacral neuritis or radiculitis, unspecified CHARLES (generalized anxiety disorder) (CMS/HCC) Generalized anxiety disorder [facility] Diagnosis Acute pain of left shoulder- Primary Psychophysiological insomnia Persistent disorder of initiating or maintaining sleep CHARLES (generalized anxiety disorder) (CMS/HCC) Generalized anxiety disorder Lumbar radiculopathy Thoracic or lumbosacral neuritis or radiculitis, unspecified Other psychoactive substance abuse, uncomplicated (CMS/HCC) Primary insomnia- Primary Persistent disorder of initiating or maintaining sleep Psychophysiological insomnia Persistent disorder of initiating or maintaining sleep Encounter for wellness examination in adult Need for immunization against influenza Need for prophylactic vaccination and inoculation against influenza Multiple sclerosis (CMS/HCC)- Primary Multiple sclerosis Cervical radiculopathy Brachial neuritis or radiculitis nos Fatigue, unspecified type Neck pain Cervicalgia Malaise and fatigue [facility] Diagnosis Acute pain of left shoulder- Primary Psychophysiological insomnia Persistent disorder of initiating or maintaining sleep CHARLES (generalized anxiety disorder) (CMS/HCC) Generalized anxiety disorder Lumbar radiculopathy Thoracic or lumbosacral neuritis or radiculitis, unspecified Other psychoactive substance abuse, uncomplicated Primary insomnia- Primary Persistent disorder of initiating or maintaining sleep Psychophysiological insomnia Persistent disorder of initiating or maintaining sleep Encounter for wellness examination in adult Need for immunization against influenza Need for prophylactic vaccination and inoculation against influenza Multiple sclerosis (CMS/HCC)- Primary Multiple sclerosis Lumbar radiculopathy Thoracic or lumbosacral neuritis or radiculitis, unspecified Chronic bilateral low back pain, unspecified whether sciatica present Degeneration of intervertebral disc of lumbar region with discogenic back pain and lower extremity pain Fatigue, unspecified type Left leg weakness Muscle weakness (generalized) [facility] Diagnosis Primary insomnia- Primary Persistent disorder of initiating or maintaining sleep Psychophysiological insomnia Persistent disorder of initiating or maintaining sleep Encounter for wellness examination in adult Need for immunization against influenza Need for prophylactic vaccination and inoculation against influenza Annual wellness visit- Primary Colon cancer screening Special screening for malignant neoplasms, colon MDD (major depressive disorder), recurrent episode, mild Multiple sclerosis, relapsing-remitting (HCC) Multiple sclerosis Nondependent abuse of drugs (CMS-HCC) Other, mixed, or unspecified nondependent drug abuse, unspecified [facility] N[facility] - Reported* Type Description Date Medical History multiple sclerosis Medical History Patient was born with one kidney Medical History degenerative disc disease Medical History anxiety Medical History depression Surgical History lumbar laminectomy Surgical History Chest tube Surgical History nephrectomy Hospitalization History See Above [facility] Other History general Narrative - Reported* Type Description Date Medical History multiple sclerosis Medical History Patient was born with one kidney Medical History degenerative disc disease Medical History anxiety Medical History depression Medical History renal agenesis Medical History MS Surgical History lumbar diskectomy- dr. may Surgical History lumbar laminectomy Surgical History Chest tube Surgical History Right side lumbar disectomy Dr. May 2014 Surgical History Diskectomy- Dr. May 8 Surgical History nephrectomy Surgical History Left side lumbar disectomy Dr. May 2018 Surgical History Lumbar fusion-[facility] Hospitalization History See Above [facility] Other Hospital Discharge instructionsAmbulatory Orders* Referral to PT / OT / Speech (PT/OT/SP) Location: None [facility] Work Phone: Chief Complaint and Reason for Visit Chief Complaint g35 m47.817 g35 Chief Complaint M54.16. Chief Complaint g35 Chief Complaint MS M51.36 Chief Complaint MS M51.36 YEARLY F/U PLIF W/X-RAY Chief Complaint Admit Date m54.16 December 03, 2024 12: 45pm Chief Complaint Admit Date m54.16 December 03, 2024 12: 45pm yearly f/u PLIF w/xray December 11, 2024 9:38am Family History Relationship Condition Age at Onset Recorded Date/T [...] history of mental disorder Unknown Advance Directives Advance Directive Response Recorded Date/ Time Advance Directives No September 11:18am Summary Purpose Additional Source Comments Care Teams (unrecognized sec tion and content) Team Status: Active Member Role Status Susi Schuster MD Primary Care Provider Active Team Status: Inactive Member Role Status Dates Shaikh Landen MD Primary Care Provider Active Start: March 21, 2024 End: March 21, 2024 Vanda Sunshine PA-C Attending Provider Active Sta rt: March 21, 2024 End: March 21, 2024 Team Status: Active Member Role Status Dates Shaikh Landen MD Primary Care Provider Active Start: December 01, 2023 Obey Lopez PA-C Attending Provider, Referring Provider Active Start: December 01, 2023 Team Status: Inactive Member Role Status Dates Shaikh Landen MD Primary Care Provider Active Start: December 12, 2023 End: December 12, 2023 Js May MD Attending Provider Active Star t: December 12, 2023 End: December 12, 2023 Team Status: Inactive Member Role Status Dates Shaikh Landen MD Primary Care Provider Active Js May MD Attending Provider Active Team Status: Inactive Member Role Status Dates Shaikh Landen MD Primary Care Provider Active Obey Lopez PA-C Attending Provider Active Team Status: Inactive Member Role Status Dates Shaikh Landen MD Primary Care Provider Active Vanda Camarena PA-C Attending Provider Active Team Status: Inactive Member Role Status Dates Shaikh Landen MD Primary Care Provider Active Start: December 13, 2023 End: December 13, 2023 sJ May MD Attending Provider Active Star t: December 13, 2023 End: December 13, 2023 Journalism Instructor Relationship Specialty Start Date End Date Carter Ortega MD [address] [place] [phone] PCP - General Family Medicine 04/24/24 Obey Lopez PA [address] [place], [place] [phone] Physician Electronic [employer]ductor Processor Neurology 11/08/23 Clemencia Hernandez NP [address] [place] [phone] Nurse Practitioner Family Medicine 04/24/24 Journalism Instructor Relationship Specialty Start Date End Date Carter Ortega MD [address] [place] [phone] PCP - General Family Medicine 04/24/24 Obey Lopez PA [address] [place], [place] [phone] Physician Electronic [employer] Processor Neurology 11/08/23 Clemencia Hernandez NP [address] [place] [address] Nurse Practitioner Family Medicine 04/24/24 Journalism Instructor Relationship Specialty Start Date End Date Carter Ortega MD [address] [place] [phone] PCP - General Family Medicine 04/24/24 Obey Lopez PA [address] [place], [place] [phone] Physician Electronic Semiconductor Processor Neurology 11/08/23 Clemencia Hernandez, MANOJ [address] [place] [address] Nurse Practitioner Family Medicine 04/24/24 Journalism Instructor Relationship Specialty Start Date End Date Carter Ortega MD [address] [place] [phone] PCP - General Family Medicine 04/24/24 Obey Lopez PA [address] [place], [place] [phone] Physician Electronic [employer]ductor Processor Neurology 11/08/23 Clemencia Hernandez, MANOJ [address] [place] [address] Nurse Practitioner Family Medicine 04/24/24 Journalism Instructor Relationship Specialty Start Date End Date Carter Ortega MD [address] [place] [phone] PCP - General Family Medicine 04/24/24 Obey Lopez PA [address] [place], [place] [phone] Physician Electronic [employer]ductor Processor Neurology 11/08/23 Clemencia Hernandez NP [address] [place] [address] Nurse Practitioner Family Medicine 04/24/24 Journalism Instructor Relationship Specialty Start Date End Date Carter Ortega MD [address] [place] [phone] PCP - General Family Medicine 04/24/24 Obey Lopez PA [address] [place], [place] [phone] Physician Electronic Sem[employer]ductor Processor Neurology 11/08/23 Clemencia Hernandez NP [address] [place] [address] Nurse Practitioner Family Medicine 04/24/24 Journalism Instructor Relationship Specialty Start Date End Date Carter Ortega MD [address] [place] [phone] PCP - General Family Medicine 04/24/24 Obey Lopez PA [address] [place], [place] [phone] Physician Electronic Semiconductor Processor Neurology 11/08/23 Clemencia Hernandez NP [address] [place] [address] Nurse Practitioner Family Medicine 04/24/24 Journalism Instructor Relationship Specialty Start Date End Date Carter Ortega MD [address] [place] [phone] PCP - General Family Medicine 04/24/24 Obey Lopez PA [address] [place], [place] [phone] Physician Electronic [employer]ductor Processor Neurology 11/08/23 Clemencia Hernandez NP [address] [place] [address] Nurse Practitioner Family Medicine 04/24/24 Journalism Instructor Relationship Specialty Start Date End Date Carter Ortega MD [address] [place] [phone] PCP - General Family Medicine 04/24/24 Obey Lopez PA [address] [place], [place] [phone] Physician Electronic [employer]ductor Processor Neurology 11/08/23 Clemencia Hernandez NP [address] [place] [phone] Nurse Practitioner Family Medicine 04/24/24 Journalism Instructor Relationship Specialty Start Date End Date Carter Ortega MD [address] [place] [phone] PCP - General Family Medicine 04/24/24 Obey Lopez PA [address] [place], [place] [phone] Physician Electronic [employer] Processor Neurology 11/08/23 Clemencia Hernandez NP [address] [place] [address] Nurse Practitioner Family Medicine 04/24/24 Team Status: Inactive Member Role Status Dates Shaikh Landen MD Primary Care Provider Active Start: December 03, 2024 End: December 03, 2024 Js May MD Attending Provider Active Star t: December 03, 2024 End: December 03, 2024 Team Status: Inactive Member Role Status Dates Shaikh Landen MD Primary Care Provider Active Start: December 11, 2024 End: December 11, 2024 Js May MD Attending Provider Active Star t: December 11, 2024 End: December 11, 2024 Journalism Instructor Relationship Specialty Start Date End Date Carter Ortega MD [address] [place] [phone] PCP - General Family Medicine 04/24/24 Obey Lopez PA [address] [place] [address] Physician Electronic [employer]iconductor Processor Neurology 11/08/23 Clemencia Hernandez NP [address] [place] [phone] Nurse Practitioner Family Medicine 04/24/24 Journalism Instructor Relationship Specialty Start Date End Date Carter Ortega MD [address] [place] [phone] PCP - General Family Medicine 04/24/24 Obey Lopez PA [address] [place] [address] Physician Electronic [employer]ductor Processor Neurology 11/08/23 Clemencia Hernandez NP [address] [place] [phone] Nurse Practitioner Family Medicine 04/24/24 Journalism Instructor Relationship Specialty Start Date End Date Carter Ortega MD [address] [place] [phone] PCP - General Family Medicine 04/24/24 Obey Lopez PA [address] [place] [phone] Physician Electronic [employer]ductor Processor Neurology 11/08/23 Clemencia Hernandez NP [address] [place] [phone] Nurse Practitioner Family Medicine 04/24/24 Journalism Instructor Relationship Specialty Start Date End Date Carter Ortega MD [address] [place] [phone] PCP - General Family Medicine 04/24/24 Obey Lopez PA [address] [place] [phone] Physician Electronic [employer]iconductor Processor Neurology 11/08/23 Clemencia Hernandez NP [address] [place] [phone] Nurse Practitioner Family Medicine 04/24/24 Goals (unrecognized section and content) Goals may [...] FOR VISIT (unrecogniz ed section and content) Reason Comments Follow-up Reason Comments Multiple Sclerosis Reason Comments Follow-up [facility] Reason Comments Med Refill Reason Comments Follow-up 6m (unrecognized sect ion and content) No Status Records FoundNo Status Records FoundNo Status Records Found INFORMATION SOURCE (unrecogn ized section and content) DATE CREATED AUTHOR 09/18/2022 [facility] DATE CREATED AUTHOR AUTHOR'S ORGANIZ ATION 01/01/2025 [facility] EPIC DATE CREATED AUTHOR AUTHOR'S ORGANIZ ATION 02/04/2025 [facility] FOR RECORDS PERTAINING TO PATIENTS [...] BE BASED ON THE PRIMARY CLINICAL RECORDS. [employer] provides no warranty or guarantee of the accuracy or completeness of information in this document.
[2025-02-07 12:05] LABS: Basophils Percent Auto 0.5 % (0.2-2.0); Eosinophils Absolute Auto 0.1 10^3/uL (0.0-0.7); Eosinophils Percent Auto 1.3 % (0.9-7.0); Hematocrit 45.5 % (42.0-54.0); Hemoglobin 15.3 g/dL (14.0-18.0); Immature Granulocytes Abs Auto 0.02 10^3/uL (0.00-0.03); Immature Granulocytes Pct Auto 0.2 % (0.0-0.5); Lymphocytes Absolute Auto 1.7 10^3/uL (1.2-3.8); Lymphocytes Percent Auto 19.4 % (20.5-60.0); Mean Corpuscular HGB Conc 33.6 g/dL (29.9-35.2); Mean Corpuscular Hemoglobin 30.7 pg (25.9-34.0); Mean Corpuscular Volume 91.2 fL (80.0-94.0); Mean Platelet Volume 9.3 fL (9.5-13.5); Monocytes Absolute Auto 0.8 10^3/uL (0.3-0.8); Monocytes Percent Auto 8.8 % (1.7-12.0); Neutrophils Absolute Auto 6.1 10^3/uL (1.4-6.5); Neutrophils Percent Auto 69.8 % (43.0-75.0); Platelet Count 201 10^3/uL (150-450); Red Blood Count 4.99 10^6/uL (4.70-6.10); Red Cell Distribution Width 12.9 % (11.0-15.0); White Blood Count 8.7 10^3/uL (4.0-11.0)
[2025-02-07 12:32] LABS: Estimated Average Glucose 117 mg/dL; Glycohemoglobin A1C 5.7 % (4.5-6.2)
[2025-02-07 12:47] LABS: Alanine Aminotransferase 18 U/L (16-63); Albumin Globulin Ratio 1.1; Albumin Level 3.4 g/dL (3.4-5.0); Alkaline Phosphatase 117 U/L (46-116); Anion Gap 10.7; Aspartate Amino Transferase 12 U/L (15-37); BUN Creatinine Ratio 9.7; Bilirubin Direct 0.1 mg/dL (0.0-0.2); Bilirubin Total 0.2 mg/dL (0.2-1.0); Calcium 8.9 mg/dL (8.5-10.1); Carbon Dioxide 31.4 mmol/L (21.0-32.0); Chloride 105 mmol/L (98-107); Chol HDL Ratio 2.6; Cholesterol 140 mg/dL (<=200); Estimated GFR (African America >60 (>=60 mL/min/1.73m^2); Estimated GFR (Non-African Ame >60 (>=60 mL/min/1.73m^2); Globulin 3.1 g/dL; Glucose 118 mg/dL (74-106); HDL Cholesterol 54 mg/dL (40-60); LDL Cholesterol Calculated 67.6 mg/dL; Potassium 4.1 mmol/L (3.5-5.1); Sodium 143 mmol/L (136-145); Thyroid Stimulating Hormone 0.745 uIU/mL (0.358-3.740); Total Protein 6.5 g/dL (6.4-8.2); Triglycerides 92 mg/dL (<=150); VLDL CHOLESTEROL 18.4 mg/dL
[2025-02-07 13:09] LABS: Prostate Specific Antigen Scrn 1.28 ng/mL (<=4.00)
== END 2025-02-07 11:39 | disposition home or self-care (01) ==
LOC: LAB 11:39
PROVIDERS: PCP Family Medicine; Visit Provider Family Medicine
DX: Z00.00 Encounter for general adult medical examination without abnormal findings (principal)
CPT/HCPCS: 36415; 80048; 80061; 80076; 83036; 84443; 85025; G0103

== ENCOUNTER 2025-03-21 12:45 | Outpatient (OUT) | payer OTHER, SELFPAY ==
[2025-03-21 13:46] LABS: Free T3 1.91 pg/mL (2.18-3.98); Thyroid Stimulating Hormone 0.904 uIU/mL (0.358-3.740)
== END 2025-03-21 12:46 | disposition home or self-care (01) ==
LOC: LAB 12:49
PROVIDERS: PCP Family Medicine; Visit Provider Internal Medicine
DX: R94.6 Abnormal results of thyroid function studies (principal); G35 Multiple sclerosis; M54.9 Dorsalgia, unspecified; E55.9 Vitamin D deficiency, unspecified
CPT/HCPCS: 36415; 82306; 84439; 84443; 84481